=== PATIENT | female | born 1965 | race Caucasian/White ===

== ENCOUNTER 2023-02-05 07:14 | Outpatient (OUT) | payer BC, SELFPAY ==
[2023-02-05 07:48] LABS: Basophils Percent Auto 0.6 % (0.2-2.0); Eosinophils Absolute Auto 0.1 10^3/uL (0.0-0.7); Eosinophils Percent Auto 1.8 % (0.9-7.0); Hematocrit 40.1 % (36.0-48.0); Hemoglobin 13.5 g/dL (12.0-16.0); Immature Granulocytes Abs Auto 0.01 10^3/uL (0.00-0.03); Immature Granulocytes Pct Auto 0.2 % (0.0-0.5); Lymphocytes Absolute Auto 2.4 10^3/uL (1.2-3.8); Mean Corpuscular HGB Conc 33.7 g/dL (29.9-35.2); Mean Corpuscular Hemoglobin 29.9 pg (26.7-34.0); Mean Corpuscular Volume 88.7 fL (81.0-99.0); Mean Platelet Volume 9.4 fL (9.5-13.5); Monocytes Absolute Auto 0.4 10^3/uL (0.3-0.8); Neutrophils Absolute Auto 3.3 10^3/uL (1.4-6.5); Neutrophils Percent Auto 53.4 % (43.0-75.0); Platelet Count 253 10^3/uL (150-450); Red Blood Count 4.52 10^6/uL (4.20-5.40); White Blood Count 6.2 10^3/uL (4.0-11.0)
[2023-02-05 08:27] LABS: Estimated Average Glucose 100 mg/dL; Glycohemoglobin A1C 5.1 % (4.5-6.2)
[2023-02-05 10:45] LABS: Alanine Aminotransferase 39 U/L (14-59); Albumin Globulin Ratio 1.1; Albumin Level 4.2 g/dL (3.4-5.0); Alkaline Phosphatase 67 U/L (46-116); Amylase 51 U/L (25-115); Anion Gap 12.6; Aspartate Amino Transferase 19 U/L (15-37); BUN Creatinine Ratio 20.3; Bilirubin Total 0.6 mg/dL (0.2-1.0); Calcium 8.6 mg/dL (8.5-10.1); Carbon Dioxide 27.3 mmol/L (21.0-32.0); Chloride 103 mmol/L (98-107); Chol HDL Ratio 5.9; Cholesterol 255 mg/dL (<=200); Estimated GFR (African America >60 (>=60); Estimated GFR (Non-African Ame >60 (>=60); Free T3 2.68 pg/mL (2.18-3.98); Globulin 3.9 g/dL; Glucose 109 mg/dL (74-106); HDL Cholesterol 43 mg/dL (40-60); Potassium 3.9 mmol/L (3.5-5.1); Sodium 139 mmol/L (136-145); Thyroid Stimulating Hormone 0.013 uIU/mL (0.358-3.740); Total Protein 8.1 g/dL (6.4-8.2); Triglycerides 440 mg/dL (<=150)
[2023-02-05 10:58] LABS: LDL Cholesterol Direct 137 mg/dL
[2023-02-06 12:20] LABS: Insulin 19.1 uIU/mL (2.6-24.9)
== END 2023-02-05 07:15 | disposition home or self-care (01) ==
LOC: LAB 07:22
PROVIDERS: PCP Family Medicine; Visit Provider Family Medicine
DX: Z00.00 Encounter for general adult medical examination without abnormal findings (principal)
CPT/HCPCS: 36415; 80053; 80061; 82150; 83036; 83525; 83690; 83721; 84436; 84443; 84481; 85025

== ENCOUNTER 2023-02-24 08:05 | Outpatient (OUT) | payer BC, SELFPAY ==
--- NOTE | 2023-02-24 08:28 | CT_ITS ---
The [address] [address] Patient Name: PRAVEENA DACOSTA MRN: [id number] date: 1965 Sex: F Assigned Patient Location: CT Current Patient Location: CT Accession/Order Number: [id number] Exam Date: 02/24/2023 08:12 Report Date: 02/24/2023 09:30 At the request of: RAKESH VERNON Procedure: CT head/brain wo/w con CT head with and without contrast, 02/24/2023. HISTORY: Right-sided head pain. COMPARISON: None. TECHNIQUE: Pre and postcontrast axial CT images obtained through the head. Reconstructions obtained in the sagittal and coronal planes. Dose reduction techniques were achieved by using automated exposure control and/or adjustment of mA and/or kV according to patient size and/or use of iterative reconstruction technique. FINDINGS: Paranasal sinuses clear. Mastoid air cells clear. Nasopharynx normal. Orbital contents normal. Extracranial soft tissue structures are unremarkable. Ventricles are normal in size. No hydrocephalus. No mass effect. No shift of midline. No extra-axial fluid collections. No acute intracranial hemorrhage. No masses. No pathologic enhancement. CT/CT head/brain wo/w con IMPRESSION: Normal CT of the head with and without contrast. Electronically authenticated by: YUDY WRAY Date: 02/24/2023 09:30
== END 2023-02-24 08:06 | disposition home or self-care (01) ==
LOC: CT 08:05
PROVIDERS: PCP Family Medicine; Visit Provider Family Medicine
DX: R20.2 Paresthesia of skin (principal); H92.02 Otalgia, left ear; H57.9 Unspecified disorder of eye and adnexa
CPT/HCPCS: 70470; Q9967

== ENCOUNTER 2023-05-24 20:16 | Outpatient (REF) | payer BC, SELFPAY ==
[2023-05-30 14:09] LABS: Age Gdln ACOG Testing Note (.); HPV Aptima Negative (Negative); IGP, Aptima HPV, rfx 16/18,45 Note (.)
== END 2023-05-24 20:17 | disposition home or self-care (01) ==
LOC: LAB 20:16
PROVIDERS: PCP Family Medicine; Visit Provider Physician Assistant
DX: Z01.419 Encounter for gynecological examination (general) (routine) without abnormal findings (principal)
CPT/HCPCS: 87624; G0145

== ENCOUNTER 2023-06-27 13:39 | Outpatient (OUT) | payer BC, SELFPAY ==
--- NOTE | 2023-06-27 | MM_ITS ---
Patient Name: PRAVENEA DACOSTA MR#: [id number] : 1965 Exam Date: 06/27/2023 Ordering Doctor: ANNA Jennings . RADIOLOGY REPORT PROCEDURE: MM TOMOSYNTHESIS SCREENING BI COMPARISON: MAMMO NIKKO DIAG DIG, 03/21/2012. MG MAMM SCREEN NIKKO W CAD, 09/10/2017. INDICATIONS: Screening for malignant neoplasm Calculator Name NCI Breast Cancer Risk Assessment Tool 5 Year Breast Cancer Risk 1.20% Lifetime Breast Cancer Risk 8.10% Personal Breast Cancer No Personal Ovarian Cancer No Treatments None Family Cancers Aunt-maternal with breast cancer at age ~48. LOCATION: [facility] BREAST COMPOSITION: Heterogeneously dense,which may obscure small masses. FINDINGS: DIAGNOSTIC CATEGORY 2--BENIGN FINDING. NO CHANGE FROM COMPARISON. Scattered benign-appearing calcifications are present. Scattered benign-appearing nodules are present. RIGHT BREAST: No significant suspicious finding. LEFT BREAST: No significant suspicious finding. RECOMMENDATIONS: ROUTINE MAMMOGRAM AND CLINICAL EVALUATION IN 12 MONTHS. PLEASE NOTE: A NORMAL MAMMOGRAM DOES NOT EXCLUDE THE POSSIBILITY OF BREAST CANCER. A CLINICALLY SUSPICIOUS PALPABLE LUMP SHOULD BE BIOPSIED. Dictated by: Kolton Montenegro MD on 06/29/2023 at 08:11 Approved by: Kolton Montenegro MD on 06/29/2023 at 08:13
--- NOTE | 2023-06-27 | XR_ITS ---
The [address] [address] Patient Name: PRAVEENA DACOSTA MRN: [id number] date: 1965 Sex: F Assigned Patient Location: [facility] Current Patient Location: [facility] Accession/Order Number: [id number] Exam Date: 06/27/2023 14:15 Report Date: 06/27/2023 15:49 At the request of: TONYA WISEMAN Procedure: XR DEXA axial skeleton EXAMINATION: XR DEXA axial skeleton HISTORY: post menopausal state COMPARISON: No relevant comparison available. TECHNIQUE: Dual-energy X-ray absorptiometry (DXA) was performed. FINDINGS: SPINE ANALYSIS: Average bone mineral density is 1.0 x 3 g/cm2. T-score (standard deviation relative to young adult mean): -1.1 . HIP ANALYSIS: Lowest bone mineral density is within the left femoral neck, 0.89 g/cm2. T-score (standard deviation relative to young adult mean): -1.5 . XR/XR DEXA axial skeleton IMPRESSION: [employer] Classification: Osteopenia - Moderate Fracture Risk Electronically authenticated by: VIKA COLLAZO Date: 06/27/2023 15:49
== END 2023-06-27 13:40 | disposition home or self-care (01) ==
LOC: MAMMO 13:39
PROVIDERS: PCP Family Medicine; Visit Provider Physician Assistant
DX: Z12.31 Encounter for screening mammogram for malignant neoplasm of breast (principal); Z80.3 Family history of malignant neoplasm of breast; M85.80 Other specified disorders of bone density and structure, unspecified site; Z78.0 Asymptomatic menopausal state
CPT/HCPCS: 77063; 77067; 77080

== ENCOUNTER 2024-02-08 08:52 | Outpatient (OUT) | payer BC, SELFPAY ==
--- OUTSIDE RECORDS SUMMARY | 2024-02-08 09:05 | XMS_ITS | CCD ---
Author Organization [facility] Care Team Providers Care Supervisor Paper Machine Name Role Phone DR RAKESH LUNDBERG Primary Care Unavailable DAVIE, DR NOBLE Admitting Unavailable DAVIE, DR NOLBE Attending Unavailable DAVIE, DR NOBLE Consulting Unavailable SAULO, DR CAMERON Primary Care Unavailable WEST, DR VANESSA Sanchez Admitting Unavailable WEST, DR VANESSA Sanchez Attending Unavailable WEST, DR VANESSA Sanchez Consulting Unavailable SAULO, DR CAMERON Primary Care Unavailable WEST, DR VANESSA Sanchez Admitting Unavailable WEST, DR VANESSA Sanchez Attending Unavailable KRUPA, DR VANESSA Sanchez Consulting Unavailable SAULO, DR CAMERON Primary Care Unavailable SAULO, DR CAMERON Admitting Unavailable SAULO, DR CAMERON Attending Unavailable SAULO, DR CAMERON Consulting Unavailable SAULO, DR CAMERON Primary Care Unavailable SAULO, DR CAMERON Admitting Unavailable SAULO, DR CAMERON Attending Unavailable SAULO, DR CAMERON Consulting Unavailable Mirta Chacko Unavailable Rakesh Lundberg MD Primary Care Provider RAKESH LUNDBERG Primary Care Unavailable RAJ DENNISON Attending Unavailable Allergies Allergy Classification Reported Allergen(s) Allergy Type Date of Onset Reaction(s) Facility (2 sources) Codeine; Translations: [CODEINE] Drug Allergy 4 [facility] Repository (1 source) diphenhydrAMINE Drug Allergy 6 [facility] (1 source) Erythromycin Drug Allergy 4 [facility] (1 source) Penicillins Drug allergy (disorder) 4 [facility] (1 source) Penicillin Drug Allergy rash [employer] Other (2 sources) Amoxicillin; Translations: [AMOXICILLIN] Drug Allergy 3 [facility] (1 source) Codeine Drug Allergy 4 Anxiety [facility] Work Phone: Medications Current Medications Medication Drug Class(es) Dates Sig (Normalized) Sig (Original) cyclobenzaprine hydrochloride 10 mg oral tablet (1 source) Muscle Relaxant Start: 12-14-2022 take 1 tablet by mouth every eight hours as needed for pain Cyclobenzaprine HCl 10 MG 1 tablet Orally every 8 hours prn back pain for 5 days Dec, Active FLUoxetine 10 mg oral capsule (1 source) Serotonin Reuptake Inhibitor FLUoxetine HCl 10 MG Oral for 90 Days Active levothyroxine sodium 0.125 mg oral tablet (1 source) l-Thyroxine Levothyroxine So dium 125 MCG Oral for 90 Days Active lisinopril 10 mg oral tablet (1 source) Angiotensin Converting Enzyme Inhibitor Lisinopril 10 MG Oral for 90 Days Active modafinil 200 mg oral tablet (1 source) Sympathomimetic-l nathaly Agent take 1 tablet by mouth once daily in the morning Modafinil 200 MG TAKE 1 TABLET BY MOUTH IN THE MORNING daily Oral for 30 Days Active Completed/Discontinued Medications Medication Drug Class(es) Dates Sig (Normalized) Sig (Original) 1 ml fentaNYL 0.05 mg/ml injection (1 source) Opioid Agonist Start: 08-07-2023 End: 08-07-2023 fentaNYL PF (Sublimaze) injection 50 mcg Ketorolac Tromethamin (1 source) Start: 12-14-2022 Ketorolac Tromethamin Dec, 60 mg Problems Active Problems Problem Classification Problem Date Documented Da te Episodic/Chronic Disorders of lipid metabolism (1 source) Hyperlipidemia, unspecified; Translations: [HYPERLIPIDEMIA UNSPECIFIED] Onset: 08-09-2022 Chronic E Codes: Fall (3 sources) Fall; Translations: [Unspecified fall, initial encounter] Onset: 08-07-2023 08-07-2023 Episodic Malaise and fatigue (1 source) Other fatigue; Translations: [OTHER FATIGUE] Onset: 08-09-2022 Episodic Nutritional deficiencies (1 source) Vitamin D deficiency, unspecified; Translations: [VITAMIN D DEFICIENCY UNSPECIFIED] Onset: 08-09-2022 Chronic Other injuries and conditions due to external causes (1 source) Closed injury of head; Translations: [Unspecified injury of head, initial encounter] 08-07-2023 Episodic Other injuries and conditions due to external causes (2 sources) Unspecified injury of head, initial encounter; Translations: [Unspecified injury of head, initial encounter] Onset: 08-07-2023 Episodic Sprains and strains (1 source) Strain of muscle, fascia and tendon of lower back, initial encounter Episodic Thyroid disorders (1 source) Hypothyroidism, unspecified; Translations: [HYPOTHYROIDISM UNSPECIFIED] Onset: 08-09-2022 Chronic Unclassified (3 sources) CONTACT W/AND (SUSP) EXPOS COVID-19; Translations: [CONTACT W/AND (SUSP) EXPOS COVID-19] Onset: 01-06-2022 Unclassified (1 source) COUGH, UNSPECIFIED; Translations: [COUGH, UNSPECIFIED] Onset: 01-06-2022 Past or Other Problems Problem Classification Problem Date Documented Date Episodic/Chronic Immunizations and screening for infectious disease (1 source) Encounter for screening for human papillomavirus (HPV); Translations: [ENC SCREENING HUMAN PAPILLOMAVIRUS] Onset: 11-16-2021 Episodic Other circulatory disease (1 source) Other specified symptoms and signs involving the circulatory and respiratory systems; Translations: [OTH SPEC SX SIGNS INVLV CIRC RS] Onset: 01-06-2022 Episodic Other screening for suspected conditions (not mental disorders or infectious disease) (4 sources) Encounter for screening for malignant neoplasm of cervix; Translations: [ENC SCREENING MALIG NEOPLASM CERV] Onset: 11-14-2021 Episodic Unclassified (1 source) CONTACT W/AND (SUSP) EXPOS COVID-19; Translations: [CONTACT W/AND (SUSP) EXPOS COVID-19] Onset: 01-04-2022 Results Test Name Value Interpretation Reference Range Facility CBC W Auto Differential pane l (Bld)on 08-07-2023 Basophils (Bld) [#/Vol] 0.03 x10*3/uL Normal 0.00-0.10 [facility] Comment on above: Performed By: #### 5 7021-8 #### MIK FREITAS ([id number]) [facility] ([facility]) [address] [place] [address] Basophils/100 WBC (Bld) 0.4 % Normal 0.0-2.0 [facility] Comment on above: Performed By: #### 5 7021-8 #### MIK FREITAS ([id number]) [facility] ([facility]) [address] [place] [address] Eosinophils (Bld) [#/Vol] 0.06 x10*3/uL Normal 0.00-0.70 [facility] Comment on above: Performed By: #### 7021-8 #### MIK FREITAS ([id number]) [facility] ([facility]) [address] [place] [address] Eosinophils/100 WBC (Bld) 0.9 % Normal 0.0-6.0 [facility] Comment on above: Performed By: #### 7021-8 #### MIK FERITAS ([id number]) [facility] ([facility]) [address] [place] [address] Erythrocyte distribution width (RBC) [Ratio] 13.2 % Normal 11.5-14.5 [facility] Comment on above: Performed By: #### 7021-8 #### MIK FREITAS ([id number]) [facility] ([facility]) [address] [place] [address] Hematocrit (Bld) [Volume fraction] 41.6 % Normal 36.0-46.0 [facility] Comment on above: Performed By: #### 7021-8 #### MIK FREITAS ([id number]) [facility] ([facility]) [address] [place] [address] Hemoglobin (Bld) [Mass/Vol] 13.8 g/dL Normal 12.0-16.0 [facility] Comment on above: Performed By: #### 7021-8 #### MIK FREITAS ([id number]) [facility] ([facility]) [address] [place] [address] Immature granulocytes (Bld) [#/Vol] 0.07 x10*3/uL Normal 0.00-0.70 [facility] Comment on above: Performed By: #### 7021-8 #### MIK FREITAS ([id number]) [facility] ([facility]) [address] [place] [address] Immature granulocytes/100 WBC (Bld) 1.0 % High 0.0-0.9 [facility] Comment on above: Result Comment: Azul ture Granulocyte Count (IG) includes promyelocytes, myelocytes and metamyelocytes but does not include bands. Percent differential counts (%) should be interpreted in the context of the absolute cell counts (cells/UL). Performed By: #### 5 7021-8 #### MIK FREITAS ([id number]) [facility] ([facility]) [id number] [place] [address] Lymphocytes (Bld) [#/Vol] 2.17 x10*3/uL Normal 1.20-4.80 [facility] Comment on above: Performed By: #### 5 7021-8 #### MIK FREITAS ([id number]) [facility] ([facility]) [address] [place] [address] Lymphocytes/100 WBC (Bld) 32.1 % Normal 13.0-44.0 [facility] Comment on above: Performed By: #### 5 7021-8 #### MIK FREITAS ([id number]) [facility] ([facility]) [address] [place] [address] MCH (RBC) [Entitic mass] 29.6 pg Normal 26.0-34.0 [facility] Comment on above: Performed By: #### 5 7021-8 #### MIK FREITAS ([id number]) [facility] ([facility]) [address] [place] [address] MCHC (RBC) [Mass/Vol] 33.2 g/dL Normal 32.0-36.0 [facility] Comment on above: Performed By: #### 5 7021-8 #### MIK FREITAS ([id number]) [facility] ([facility]) [address] [place] [address] MCV (RBC) [Entitic vol] 89 fL Normal 80-100 [facility] Comment on above: Performed By: #### 5 7021-8 #### MIK FREITAS ([id number]) [facility] ([facility]) [address] [place] [address] Monocytes (Bld) [#/Vol] 0.32 x10*3/uL Normal 0.10-1.00 [facility] Comment on above: Performed By: #### 5 7021-8 #### MIK FREITAS ([id number]) [facility] ([facility]) [address] [place] [address] Monocytes/100 WBC (Bld) 4.7 % Normal 2.0-10.0 [facility] Comment on above: Performed By: #### 5 7021-8 #### MIK FREITAS ([id number]) [facility] ([facility]) [id number] [place] [address] Neutrophils (Bld) [#/Vol] 4.12 x10*3/uL Normal 1.20-7.70 [facility] Comment on above: Result Comment: Perc ent differential counts (%) should be interpreted in the context of the absolute cell counts (cells/uL). Performed By: #### 5 7021-8 #### MIK FREITAS ([id number]) [facility] ([facility]) [id number] [place] [address] Neutrophils/100 WBC (Bld) 60.9 % Normal 40.0-80.0 [facility] Comment on above: Performed By: #### 5 7021-8 #### MIK FREITAS ([id number]) [facility] ([facility]) [address] [place] [address] Nucleated RBC/100 WBC (Bld) [Ratio] 0.0 /100 WBCs Normal 0.0-0.0 [facility] Comment on above: Performed By: #### 5 7021-8 #### MIK FREITAS ([id number]) [facility] ([facility]) [address] [place] [address] Platelets (Bld) [#/Vol] 234 x10*3/uL Normal 150-450 [facility] Comment on above: Performed By: #### 5 7021-8 #### MIK FREITAS ([id number]) [facility] ([facility]) [address] [place] [address] RBC (Bld) [#/Vol] 4.66 x10*6/uL Normal 4.00-5.20 [facility] Comment on above: Performed By: #### 5 7021-8 #### MIK FREITAS ([id number]) [facility] ([facility]) [address] [place] [address] WBC (Bld) [#/Vol] 6.8 x10*3/uL Normal 4.4-11.3 [facility] Comment on above: Performed By: #### 5 7021-8 #### MIK FREITAS ([id number]) [facility] ([facility]) [address] [place] [address] Basophils (Bld) [#/Vol] 0.03 10*3/uL [facility] Basophils/100 WBC (Bld) 0.4 % 0.0 - 2.0 % [facility] Eosinophils (Bld) [#/Vol] 0.06 10*3/uL [facility] Eosinophils/100 WBC (Bld) 0.9 % 0.0 - 6.0 % [facility] Erythrocyte distribution width (RBC) [Ratio] 13.2 % 11.5 - 14.5 % [facility] Hematocrit (Bld) [Volume fraction] 41.6 % 36.0 - 46.0 % [facility] Hemoglobin (Bld) [Mass/Vol] 13.8 g/dL 12.0 - 16.0 g/dL [facility] Immature granulocytes (Bld) [#/Vol] 0.07 10*3/uL [facility] Immature granulocytes/100 WBC (Bld) 1.0 % High 0.0 - 0.9 % [facility] Comment on above: Immature Granulocyte Count (IG) includes promyelocytes, myelocytes and metamyelocytes but does not include bands. Percent differential counts (%) should be interpreted in the context of the absolute cell counts (cells/UL). Interpretation and review of laboratory results Abnormal [facility] Lymphocytes (Bld) [#/Vol] 2.17 10*3/uL [facility] Lymphocytes/100 WBC (Bld) 32.1 % 13.0 - 44.0 % [facility] MCH (RBC) [Entitic mass] 29.6 pg 26.0 - 34.0 pg [facility] MCHC (RBC) [Mass/Vol] 33.2 g/dL 32.0 - 36.0 g/dL [facility] MCV (RBC) [Entitic vol] 89 fL 80 - 100 fL [facility] Monocytes (Bld) [#/Vol] 0.32 10*3/uL [facility] Monocytes/100 WBC (Bld) 4.7 % 2.0 - 10.0 % [facility] Neutrophils (Bld) [#/Vol] 4.12 10*3/uL [facility] Comment on above: Percent differential counts (%) should be interpreted in the context of the absolute cell counts (cells/uL). Neutrophils/100 WBC (Bld) 60.9 % 40.0 - 80.0 % [facility] Nucleated RBC/100 WBC (Bld) [Ratio] 0.0 % [facility] Platelets (Bld) [#/Vol] 234 10*3/uL [facility] RBC (Bld) [#/Vol] 4.66 10*6/uL [facility] WBC (Bld) [#/Vol] 6.8 10*3/uL [facility] CT CERVICAL SPINE WO IV CONT Phoebe 08-07-2023 CT CERVICAL SPINE WO IV CONTRAST Interpreted By: Willy Anderson, STUDY: CT CERVICAL SPINE WO IV CONTRAST; 08/07/2023 9:01 am INDICATION: Signs/Symptoms:Mechan ical fall, no thinners, positive LOC. COMPARISON: None. ACCESSION NUMBER(S): [id number] ORDERING CLINICIAN: DIMPLE MADRID TECHNIQUE: Axial CT images of the cervical spine are obtained. Axial, coronal and sagittal reconstructions are provided for review. FINDINGS: Trauma: There is no evidence for an acute fracture of the cervical spine. No prevertebral soft tissue swelling. Alignment: Within normal limits. Craniocervical Junction: The occipital condyles, odontoid process, and craniocervical junction are intact. Vertebral Body Heights: The cervical vertebral body heights are intact. Intervertebral Disc Spaces: The disc spaces are grossly preserved. Degenerative Change: Bulky right C4-C5 facet arthropathy. No high-grade spinal canal stenosis. No high-grade neural foraminal narrowing. Prevertebral/Paraspin al Soft Tissues: The prevertebral and paraspinal soft tissues are otherwise unremarkable. Lung Apices: Unremarkable. IMPRESSION: No evidence for an acute fracture or subluxation of the cervical spine. MACRO: None Signed by: Willy Anderson 08/07/2023 9:41 AM Dictation workstation: [id number] [facility] CT Cervical spine WO contras ton 08-07-2023 No evidence for an acute fracture or subluxation of the cervical spine. MACRO: None Signed by: Willy Anderson 08/07/2023 9:41 AM Dictation workstation: [id number] [facility] Interpreted By: Willy Anderson, STUDY: CT CERVICAL SPINE WO IV CONTRAST; 08/07/2023 9:01 am INDICATION: Signs/Symptoms:Mechan ical fall, no thinners, positive LOC. COMPARISON: None. ACCESSION NUMBER(S): [id number] ORDERING CLINICIAN: DIMPLE MADRID TECHNIQUE: Axial CT images of the cervical spine are obtained. Axial, coronal and sagittal reconstructions are provided for review. FINDINGS: Trauma: There is no evidence for an acute fracture of the cervical spine. No prevertebral soft tissue swelling. Alignment: Within normal limits. Craniocervical Junction: The occipital condyles, odontoid process, and craniocervical junction are intact. Vertebral Body Heights: The cervical vertebral body heights are intact. Intervertebral Disc Spaces: The disc spaces are grossly preserved. Degenerative Change: Bulky right C4-C5 facet arthropathy. No high-grade spinal canal stenosis. No high-grade neural foraminal narrowing. Prevertebral/Paraspin al Soft Tissues: The prevertebral and paraspinal soft tissues are otherwise unremarkable. Lung Apices: Unremarkable. [facility] Willy Anderson MD - 08/07/2023 Interpreted By: Willy Anderson, STUDY: CT CERVICAL SPINE WO IV CONTRAST; 08/07/2023 9:01 am INDICATION: Signs/Symptoms:Mechan ical fall, no thinners, positive LOC. COMPARISON: None. ACCESSION NUMBER(S): [id number] ORDERING CLINICIAN: DIMPLE MADRID TECHNIQUE: Axial CT images of the cervical spine are obtained. Axial, coronal and sagittal reconstructions are provided for review. FINDINGS: Trauma: There is no evidence for an acute fracture of the cervical spine. No prevertebral soft tissue swelling. Alignment: Within normal limits. Craniocervical Junction: The occipital condyles, odontoid process, and craniocervical junction are intact. Vertebral Body Heights: The cervical vertebral body heights are intact. Intervertebral Disc Spaces: The disc spaces are grossly preserved. Degenerative Change: Bulky right C4-C5 facet arthropathy. No high-grade spinal canal stenosis. No high-grade neural foraminal narrowing. Prevertebral/Paraspin al Soft Tissues: The prevertebral and paraspinal soft tissues are otherwise unremarkable. Lung Apices: Unremarkable. IMPRESSION: No evidence for an acute fracture or subluxation of the cervical spine. MACRO: None Signed by: Willy Anderson 08/07/2023 9:41 AM Dictation workstation: [id number] [facility] Work Phone: [facility] Work Phone: CT HEAD WO IV CONTRASTon CT HEAD WO IV CONTRAST Interpreted By: Willy Anderson, STUDY: CT HEAD WO IV CONTRAST; 08/07/2023 9:01 am INDICATION: Signs/Symptoms:Mechan ical fall, no thinners, positive LOC. COMPARISON: None. ACCESSION NUMBER(S): [id number] ORDERING CLINICIAN: DIMPLE MADRID TECHNIQUE: Noncontrast axial CT scan of head was performed. FINDINGS: Parenchyma: There is no intracranial hemorrhage. The randolph-white differentiation is intact. There is no mass effect or midline shift. CSF Spaces: The ventricles, sulci and basal cisterns are within normal limits for age. Extra-Axial Fluid: There is no extraaxial fluid collection. Calvarium: The calvarium is unremarkable. Paranasal sinuses: Visualized paranasal sinuses are clear. Mastoids: Clear. Orbits: Normal. Soft tissues: Unremarkable. IMPRESSION: No acute intracranial hemorrhage, mass effect, or calvarial fracture. MACRO: None Signed by: Willy Anderson 08/07/2023 9:38 AM Dictation workstation: [id number] [facility] CT Head WO contraston 2023 No acute intracrania l hemorrhage, mass effect, or calvarial fracture. MACRO: None Signed by: Willy Anderson 08/07/2023 9:38 AM Dictation workstation: [id number] [facility] Interpreted By: Willy Anderson, STUDY: CT HEAD WO IV CONTRAST; 08/07/2023 9:01 am INDICATION: Signs/Symptoms:Mechan ical fall, no thinners, positive LOC. COMPARISON: None. ACCESSION NUMBER(S): [id number] ORDERING CLINICIAN: DIMPLE MADRID TECHNIQUE: Noncontrast axial CT scan of head was performed. FINDINGS: Parenchyma: There is no intracranial hemorrhage. The randolph-white differentiation is intact. There is no mass effect or midline shift. CSF Spaces: The ventricles, sulci and basal cisterns are within normal limits for age. Extra-Axial Fluid: There is no extraaxial fluid collection. Calvarium: The calvarium is unremarkable. Paranasal sinuses: Visualized paranasal sinuses are clear. Mastoids: Clear. Orbits: Normal. Soft tissues: Unremarkable. MMODAL Willy Anderson MD - 08/07/2023 Interpreted By: Willy Anderson, STUDY: CT HEAD WO IV CONTRAST; 08/07/2023 9:01 am INDICATION: Signs/Symptoms:Mechan ical fall, no thinners, positive LOC. COMPARISON: None. ACCESSION NUMBER(S): [id number] ORDERING CLINICIAN: DIMPLE MADRID TECHNIQUE: Noncontrast axial CT scan of head was performed. FINDINGS: Parenchyma: There is no intracranial hemorrhage. The randolph-white differentiation is intact. There is no mass effect or midline shift. CSF Spaces: The ventricles, sulci and basal cisterns are within normal limits for age. Extra-Axial Fluid: There is no extraaxial fluid collection. Calvarium: The calvarium is unremarkable. Paranasal sinuses: Visualized paranasal sinuses are clear. Mastoids: Clear. Orbits: Normal. Soft tissues: Unremarkable. IMPRESSION: No acute intracranial hemorrhage, mass effect, or calvarial fracture. MACRO: None Signed by: Willy Anderson 08/07/2023 9:38 AM Dictation workstation: [id number] [facility] Work Phone: CT Head WO contrastOrdered B y: Willy Anderson on 08-07-2023 [facility] Work Phone: CT THORACIC SPINE WO IV CONT RASTon 08-07-2023 CT THORACIC SPINE WO IV CONTRAST Interpreted By: Willy Anderson, STUDY: CT THORACIC SPINE WO IV CONTRAST; 08/07/2023 9:01 am INDICATION: Signs/Symptoms:Mechan ical fall, no thinners, positive LOC, thoracic spinal tenderness. COMPARISON: None. ACCESSION NUMBER(S): [id number] ORDERING CLINICIAN: DIMPLE MADRID TECHNIQUE: Axial CT images of the thoracic spine are obtained. Axial, coronal and sagittal reconstructions are submitted for review. FINDINGS: Trauma: No definite acute fracture. Alignment: Trace scoliosis. Otherwise within normal limits. Vertebral Body Heights: There is minimal, likely remote, superior endplate compression deformity of T1 and mild involvement of T2 with less than 20% vertebral body height loss and slight anterior wedging. There is also mild chronic anterior wedging of T7 with estimated 25% vertebral body height loss anteriorly and small Schmorl's node component involving the superior endplate. Intervertebral Discs: Mild multilevel degenerative disc height loss with anterior predominant endplate spurring. Degenerative change: There is no significant spinal canal stenosis. No high-grade neural foraminal narrowing. Paraspinous Soft Tissues: Within normal limits. Mild dependent atelectasis within the visualized lung bases. IMPRESSION: No acute osseous abnormality of the thoracic spine. Mild chronic appearing anterior wedging of a few scattered thoracic vertebral bodies as above. MACRO: None Signed by: Willy Anderson 08/07/2023 9:48 AM Dictation workstation: [id number] [facility] CT Thoracic spine WO contras ton 08-07-2023 No acute osseous abnormality of the thoracic spine. Mild chronic appearing anterior wedging of a few scattered thoracic vertebral bodies as above. MACRO: None Signed by: Willy Anderson 08/07/2023 9:48 AM Dictation workstation: [id number] [facility] Interpreted By: Willy Anderson, STUDY: CT THORACIC SPINE WO IV CONTRAST; 08/07/2023 9:01 am INDICATION: Signs/Symptoms:Mechan ical fall, no thinners, positive LOC, thoracic spinal tenderness. COMPARISON: None. ACCESSION NUMBER(S): [id number] ORDERING CLINICIAN: DIMPLE MADRID TECHNIQUE: Axial CT images of the thoracic spine are obtained. Axial, coronal and sagittal reconstructions are submitted for review. FINDINGS: Trauma: No definite acute fracture. Alignment: Trace scoliosis. Otherwise within normal limits. Vertebral Body Heights: There is minimal, likely remote, superior endplate compression deformity of T1 and mild involvement of T2 with less than 20% vertebral body height loss and slight anterior wedging. There is also mild chronic anterior wedging of T7 with estimated 25% vertebral body height loss anteriorly and small Schmorl's node component involving the superior endplate. Intervertebral Discs: Mild multilevel degenerative disc height loss with anterior predominant endplate spurring. Degenerative change: There is no significant spinal canal stenosis. No high-grade neural foraminal narrowing. Paraspinous Soft Tissues: Within normal limits. Mild dependent atelectasis within the visualized lung bases. MMODAL Willy Anderson MD - 08/07/2023 Interpreted By: Willy Anderson, STUDY: CT THORACIC SPINE WO IV CONTRAST; 08/07/2023 9:01 am INDICATION: Signs/Symptoms:Mechan ical fall, no thinners, positive LOC, thoracic spinal tenderness. COMPARISON: None. ACCESSION NUMBER(S): [id number] ORDERING CLINICIAN: DIMPLE MADRID TECHNIQUE: Axial CT images of the thoracic spine are obtained. Axial, coronal and sagittal reconstructions are submitted for review. FINDINGS: Trauma: No definite acute fracture. Alignment: Trace scoliosis. Otherwise within normal limits. Vertebral Body Heights: There is minimal, likely remote, superior endplate compression deformity of T1 and mild involvement of T2 with less than 20% vertebral body height loss and slight anterior wedging. There is also mild chronic anterior wedging of T7 with estimated 25% vertebral body height loss anteriorly and small Schmorl's node component involving the superior endplate. Intervertebral Discs: Mild multilevel degenerative disc height loss with anterior predominant endplate spurring. Degenerative change: There is no significant spinal canal stenosis. No high-grade neural foraminal narrowing. Paraspinous Soft Tissues: Within normal limits. Mild dependent atelectasis within the visualized lung bases. IMPRESSION: No acute osseous abnormality of the thoracic spine. Mild chronic appearing anterior wedging of a few scattered thoracic vertebral bodies as above. MACRO: None Signed by: Willy Anderson 08/07/2023 9:48 AM Dictation workstation: [id number] [facility] Work Phone: [facility] Work Phone: Coagulation tissue factor in ducedon 08-07-2023 PT Coag (PPP) [Time] 11.1 s Normal 9.8-12.8 [facility] Comment on above: Performed By: #### 5 902-2 #### MIK FREITAS ([id number]) [facility] ([facility]) [address] [place] [address] Comprehensive metabolic 2000 panelon 08-07-2023 Albumin BCP dye [Mass/Vol] 4.7 g/dL Normal 3.4-5.0 [facility] Comment on above: Performed By: #### 2 4323-8 #### MIK FREITAS ([id number]) [facility] ([facility]) [address] [place] [address] ALP [Catalytic activity/Vol] 61 U/L Normal 33-110 [facility] Comment on above: Performed By: #### 2 4323-8 #### MIK FREITAS ([id number]) [facility] ([facility]) [address] [place] [address] ALT With P-5'-P [Catalytic activity/Vol] 27 U/L Normal 7-45 [facility] Comment on above: Result Comment: [place] ents treated with Sulfasalazine may generate falsely decreased results for ALT. Performed By: #### 2 4323-8 #### MIK FREITAS ([id number]) [facility] ([facility]) [address] [place] [address] Anion gap [Moles/Vol] 11 mmol/L Normal 10-20 [facility] Comment on above: Performed By: #### 2 4323-8 #### MIK FREITAS ([id number]) [facility] ([facility]) [address] [place] [address] AST With P-5'-P [Catalytic activity/Vol] 23 U/L Normal 9-39 [facility] Comment on above: Performed By: #### 2 4323-8 #### MIK FREITAS ([id number]) [facility] ([facility]) [address] [place] [address] Bilirubin [Mass/Vol] 0.5 mg/dL Normal 0.0-1.2 [facility] Comment on above: Performed By: #### 2 4323-8 #### MIK FREITAS ([id number]) [facility] ([facility]) [address] [place] [address] Calcium [Mass/Vol] 9.4 mg/dL Normal 8.6-10.3 [facility] Comment on above: Performed By: #### 2 4323-8 #### MIK FREITAS ([id number]) [facility] ([facility]) [address] [place] [address] Chloride [Moles/Vol] 101 mmol/L Normal 98-107 [facility] Comment on above: Performed By: #### 2 4323-8 #### MIK FREITAS ([id number]) [facility] ([facility]) [address] [place] [address] CO2 [Moles/Vol] 28 mmol/L Normal 21-32 [facility] Comment on above: Performed By: #### 2 4323-8 #### MIK FREITAS ([id number]) [facility] ([facility]) [address] [place] [address] Creatinine [Mass/Vol] 0.75 mg/dL Normal 0.50-1.05 [facility] Comment on above: Performed By: #### 2 4323-8 #### MIK FREITAS ([id number]) [facility] ([facility]) [address] [place] [address] GFR/1.73 sq M.predicted MDRD (S/P/Bld) [Vol rate/Area] mL/min/{1.73_m2} Normal >60 [facility] Comment on above: Result Comment: Calc ulations of estimated GFR are performed using the 2020 CKD-EPI Study Refit equation without the race variable for the IDMS-Traceable creatinine methods. https://jasn.asnjournals.org/content/early//ASN.7210780 988 Performed By: #### 2 4323-8 #### MIK FREITAS ([id number]) [facility] ([facility]) [address] [place] [address] Glucose [Mass/Vol] 108 mg/dL High 74-99 [facility] Comment on above: Performed By: #### 2 4323-8 #### MIK FREITAS ([id number]) [facility] ([facility]) [address] [place] [address] Potassium [Moles/Vol] 3.8 mmol/L Normal 3.5-5.3 [facility] Comment on above: Performed By: #### 2 4323-8 #### MIK FREITAS ([id number]) [facility] ([facility]) [address] [place] [address] Protein [Mass/Vol] 7.8 g/dL Normal 6.4-8.2 [facility] Comment on above: Performed By: #### 2 4323-8 #### MIK FREITAS ([id number]) [facility] ([facility]) [address] [place] [address] Sodium [Moles/Vol] 136 mmol/L Normal 136-145 [facility] Comment on above: Performed By: #### 2 4323-8 #### MIK FREITAS ([id number]) [facility] ([facility]) [address] [place] [address] Urea nitrogen [Mass/Vol] 13 mg/dL Normal 6-23 [facility] Comment on above: Performed By: #### 2 4323-8 #### MIK FREITAS ([id number]) [facility] ([facility]) [address] [place] [address] Albumin BCP dye [Mass/Vol] 4.7 g/dL 3.4 - 5.0 g/dL [facility] ALP [Catalytic activity/Vol] 61 U/L 33 - 110 U/L [facility] ALT With P-5'-P [Catalytic activity/Vol] 27 U/L 7 - 45 U/L [facility] Comment on above: Patients treated wit h Sulfasalazine may generate falsely decreased results for ALT. Anion gap [Moles/Vol] 11 mmol/L 10 - 20 mmol/L [facility] AST With P-5'-P [Catalytic activity/Vol] 23 U/L 9 - 39 U/L [facility] Bilirubin [Mass/Vol] 0.5 mg/dL 0.0 - 1 .2 mg/dL [facility] Calcium [Mass/Vol] 9.4 mg/dL 8.6 - 10. 3 mg/dL [facility] Chloride [Moles/Vol] 101 mmol/L 98 - 10 7 mmol/L [facility] CO2 [Moles/Vol] 28 mmol/L 21 - 32 mmol/L [facility] Creatinine [Mass/Vol] 0.75 mg/dL 0.50 - 1.05 mg/dL [facility] eGFR - PINF [facility] Comment on above: Calculations of danielle mated GFR are performed using the 2020 CKD-EPI Study Refit equation without the race variable for the IDMS-Traceable creatinine methods. https://jasn.asnjournals.org/content//ASN.2116796 988 Glucose [Mass/Vol] 108 mg/dL High 74 - 99 mg/dL [facility] Interpretation and review of laboratory results Abnormal [facility] Potassium [Moles/Vol] 3.8 mmol/L 3.5 - 5.3 mmol/L [facility] Protein [Mass/Vol] 7.8 g/dL 6.4 - 8.2 g/dL [facility] Sodium [Moles/Vol] 136 mmol/L 136 - 145 mmol/L [facility] Urea nitrogen [Mass/Vol] 13 mg/dL 6 - 23 mg/dL [facility] ECG 12-LEADon 08-07-2023 ECG 12-LEAD Ventricular Rate 73 Atrial Rate 73 P-R Interval 168 QRS Duration 70 Q-T Interval 392 QTC Calculation(Bazett) 431 P Amber 32 R Amber 43 T Amber 24 QRS Count 12 Q Onset 225 P Onset 141 P Offset 194 T Offset 421 QTC Fredericia 418 Diagnosis Normal sinus rhythm Septal infarct , age undetermined Abnormal ECG No previous ECGs available Confirmed by Josie Anthony ([id number]) on 08/29/2023 9:59:19 PM Normal [facility] No Panel Informationon 08-07 Radiology Study observation (narrative) [facility] Work Phone: PT Coag (PPP) [Time]on 08-07 INR Coag (PPP) [Relative time] 1.0 Normal 0.9-1.1 [facility] Comment on above: Performed By: #### 5 902-2 #### MIK FREITAS ([id number]) [facility] ([facility]) [address] [place] [address] INR Coag (PPP) [Relative time] 1.0 {INR} 0.9 - 1.1 [facility] Interpretation and review of laboratory results Normal [facility] Protime-INRon 08-07-2023 PT Coag (PPP) [Time] 11.1 s [facility] CBC AUTO DIFFon 08-08-2022 BASO # 0.0 103/ul Normal 0.0-0.1 [facility] Comment on above: Performed By: #### C BC #### [facility] [address] [address] [address] Enrique Parkinson Basophils/100 WBC (Bld) 0.6 % Normal 0.2-2.0 [facility] Comment on above: Performed By: #### C BC #### [facility] [address] [address] [address] Enrique Parkinson EO # 0.1 103/ul Normal 0.0-0.7 [facility] Comment on above: Performed By: #### C BC #### [facility] [address] [place] [address] Dr. Enrique Parkinson Eosinophils/100 WBC (Bld) 0.9 % Normal 0.9-7.0 [facility] Comment on above: Performed By: #### C BC #### [facility] [address] [place] [address] Dr. Enrique Parkinson Erythrocyte distribution width (RBC) [Ratio] 12.9 % Normal 11.0-15.0 [facility] Comment on above: Performed By: #### C BC #### [facility] [address] [place] [address] Dr. Enrique Parkinson Hematocrit (Bld) [Volume fraction] 41.5 % Normal 36.0-48.0 [facility] Comment on above: Performed By: #### C BC #### [facility] [address] [place] [address] Dr. Enrique Parkinson Hemoglobin (Bld) [Mass/Vol] 14.3 g/dL Normal 12.0-16.0 [facility] Comment on above: Performed By: #### C BC #### [facility] [address] [place] [address] Dr. Enrique Parkinson IG # 0.02 10e3/ul Normal 0.00-0.03 [facility] Comment on above: Performed By: #### C BC #### [facility] [address] [place] [address] Dr. Enrique Parkinson IG % 0.3 % Normal 0.0-0.5 [facility] Comment on above: Performed By: #### C BC #### [facility] [address] [place] [address] Dr. Enrique Parkinson LYMPH # 1.8 103/ul Normal 1.2-3.8 [facility] Comment on above: Performed By: #### C BC #### [facility] [address] [place] [address] Dr. Enrique Parkinson Lymphocytes/100 WBC (Bld) 25.9 % Normal 20.5-60.0 [facility] Comment on above: Performed By: #### C BC #### [facility] [address] [place] [address] Dr. Enrique Parkinson MANUAL DIFF REQ NO Normal [facility] Comment on above: Performed By: #### C BC #### [facility] [address] [place] [address] Dr. Enrique Parkinson MCH (RBC) [Entitic mass] 30.2 pg Normal 26.7-34.0 [facility] Comment on above: Performed By: #### C BC #### [facility] [address] [place] [address] Dr. Enrique Parkinson MCHC (RBC) [Mass/Vol] 34.5 g/dL Normal 29.9-35.2 [facility] Comment on above: Performed By: #### C BC #### [facility] [address] [place] [address] Dr. Enrique Parkinson MCV (RBC) [Entitic vol] 87.6 fL Normal 81.0-99.0 [facility] Comment on above: Performed By: #### C BC #### [facility] [address] [place] [address] Dr. Enrique Parkinson MONO # 0.4 103/ul Normal 0.3-0.8 [facility] Comment on above: Performed By: #### C BC #### [facility] [address] [place] [address] Dr. Enrique Parkinson Monocytes/100 WBC (Bld) 5.1 % Normal 1.7-12.0 [facility] Comment on above: Performed By: #### C BC #### [facility] [address] [place] [address] Dr. Enrique Parkinson NEUT # 4.6 103/ul Normal 1.4-6.5 [facility] Comment on above: Performed By: #### C BC #### [facility] [address] [place] [address] Dr. Enrique Parkinson Neutrophils/100 WBC (Bld) 67.2 % Normal 43.0-75.0 [facility] Comment on above: Performed By: #### C BC #### [facility] [address] [place] [address] Dr. Enrique Parkinson Platelet mean volume (Bld) [Entitic vol] 9.2 fL Critically low 9.5-13.5 [facility] Comment on above: Performed By: #### C BC #### [facility] [address] [place] [address] Dr. Enrique Parkinson PLT 246 103/ul Normal 150-450 [facility] Comment on above: Performed By: #### C BC #### [facility] [address] [place] [address] Dr. Enrique Parkinson RBC 4.74 106/ul Normal 4.20-5.40 [facility] Comment on above: Performed By: #### C BC #### [facility] [address] [place] [address] Dr. Enrique Parkinson WBC 6.9 103/ul Normal 4.0-11.0 [facility] Comment on above: Performed By: #### C BC #### [facility] [address] [place] [address] Dr. Enrique Parkinson FREE T3on 08-08-2022 FREE T3 2.43 pg/mlL Normal 2.18-3.98 [facility] Comment on above: Performed By: #### T 4, TSH, LIPID, CMP, FT3 #### [facility] [address] [place] [address] Dr. Enrique Parkinson GLYCOHEMOGLOBIN A1Con 2022 ADA RECOMMENDATION SEE BELOW Normal [facility] Comment on above: Result Comment: ADA RECOMMENDED LIMIT 4.0 - 6.0 ADA THERAPEUTIC TARGET < 7.0 ACTION SUGGESTED > 7.0 Performed By: #### A 1C #### [facility] [address] [address] [address] Enrique Parkinson Glucose [Mass/Vol] 114 mg/dL Normal [facility] Comment on above: Performed By: #### A 1C #### [facility] [address] [place] [address] Dr. Enrique Parkinson HbA1c (Bld) [Mass fraction] 5.6 % Normal 4.5-6.2 [facility] Comment on above: Performed By: #### A 1C #### [facility] [address] [place] [address] Dr. Enrique Parkinson LIPID PROFILEon 08-08-2022 CHOL-HDL RATIO NORM SEE BELOW Normal [facility] Comment on above: Result Comment: 3.3 - 4.4 LOW RISK 4.4 - 7.1 AVERAGE RISK 7.1 - 11.0 MODERATE RISK >11.0 HIGH RISK Performed By: #### T 4, TSH, LIPID, CMP, FT3 #### [facility] [address] [place] [address] Dr. Enrique Parkinson Cholesterol [Mass/Vol] 241 mg/dL Critically high <=200 [facility] Comment on above: Performed By: #### T 4, TSH, LIPID, CMP, FT3 #### [facility] [address] [place] [address] Dr. Enrique Parkinson Cholesterol in HDL [Mass/Vol] 45 mg/dL Normal 40-60 [facility] Comment on above: Performed By: #### T 4, TSH, LIPID, CMP, FT3 #### [facility] [address] [place] [address] Dr. Enrique Parkinson Cholesterol in LDL [Mass/Vol] 131.2 mg/dL Normal [facility] Comment on above: Performed By: #### T 4, TSH, LIPID, CMP, FT3 #### [facility] [address] [place] [address] Dr. Enrique Parkinson Cholesterol.total/Ch olesterol in HDL [Mass ratio] 5.4 {ratio} Normal [facility] Comment on above: Performed By: #### T 4, TSH, LIPID, CMP, FT3 #### [facility] [address] [address] [address] Enrique Parkinson HDL NORMAL > or = 60 mg/dl - LO W CARDIOVASCULAR RISK <40 mg/dl - HIGH CARDIOVASCULAR RISK Normal [facility] Comment on above: Performed By: #### T 4, TSH, LIPID, CMP, FT3 #### [facility] [address] [address] [address] Enrique Parkinson LDL CALC NORMAL SEE BELOW Normal [facility] Comment on above: Result Comment: <100 mg/dl OPTIMAL 100 - 129 mg/dl NEAR OR ABOVE OPTIMAL 130 - 159 mg/dl BORDERLINE HIGH 160 - 189 mg/dl HIGH >190 mg/dl VERY HIGH Performed By: #### T 4, TSH, LIPID, CMP, FT3 #### [facility] [address] [address] [address] Enrique Parkinson Triglyceride [Mass/Vol] 324 mg/dL Critically high <=150 [facility] Comment on above: Performed By: #### T 4, TSH, LIPID, CMP, FT3 #### [facility] [address] [address] [address] Enrique Parkinson VLDL CALC 64.8 mg/dL Normal [facility] Comment on above: Performed By: #### T 4, TSH, LIPID, CMP, FT3 #### [facility] [address] [address] [address] Enrique Parkinson PROF 14(COMP METB)on 023 Albumin [Mass/Vol] 4.1 g/dL Normal 3.4-5.0 [facility] Comment on above: Performed By: #### T 4, TSH, LIPID, CMP, FT3 #### [facility] [address] [address] [address] Enrique Parkinson Albumin/Globulin [Mass ratio] 1.1 {ratio} Normal [facility] Comment on above: Performed By: #### T 4, TSH, LIPID, CMP, FT3 #### [facility] [address] [address] [address] Enrique Parkinson ALP [Catalytic activity/Vol] 83 U/L Normal 46-116 [facility] Comment on above: Performed By: #### T 4, TSH, LIPID, CMP, FT3 #### [facility] [address] [place] [address] Dr. Enrique Parkinson ALT [Catalytic activity/Vol] 28 U/L Normal 14-59 [facility] Comment on above: Performed By: #### T 4, TSH, LIPID, CMP, FT3 #### [facility] [address] [place] [address] Dr. Enrique Parkinson Anion gap [Moles/Vol] 12.3 mmol/L Normal [facility] Comment on above: Performed By: #### T 4, TSH, LIPID, CMP, FT3 #### [facility] [address] [place] [address] Dr. Enrique Parkinson AST [Catalytic activity/Vol] 20 U/L Normal 15-37 [facility] Comment on above: Performed By: #### T 4, TSH, LIPID, CMP, FT3 #### [facility] [address] [place] [address] Dr. Enrique Parkinson Bilirubin [Mass/Vol] 0.4 mg/dL Normal 0.2-1.0 [facility] Comment on above: Performed By: #### T 4, TSH, LIPID, CMP, FT3 #### [facility] [address] [place] [address] Dr. Enrique Parkinson Calcium [Mass/Vol] 9.2 mg/dL Normal 8.5-10.1 [facility] Comment on above: Performed By: #### T 4, TSH, LIPID, CMP, FT3 #### [facility] [address] [place] [address] Dr. Enrique Parkinson Chloride [Moles/Vol] 101 mmol/L Normal 98-107 [facility] Comment on above: Performed By: #### T 4, TSH, LIPID, CMP, FT3 #### [facility] [address] [place] [address] Dr. Enrique Parkinson CO2 [Moles/Vol] 29.4 mmol/L Normal 21.0-32.0 [facility] Comment on above: Performed By: #### T 4, TSH, LIPID, CMP, FT3 #### [facility] [address] [place] [address] Dr. Enrique Parkinson Creatinine [Mass/Vol] 0.80 mg/dL Normal 0.55-1.02 [facility] Comment on above: Performed By: #### T 4, TSH, LIPID, CMP, FT3 #### [facility] [address] [place] [address] Dr. Enrique Parkinson EGFR-AF SAMOAN >60 Normal >=60 [facility] Comment on above: Performed By: #### T 4, TSH, LIPID, CMP, FT3 #### [facility] [address] [place] [address] Dr. Enrique Parkinson EGFR-NON AF SAMOAN >60 Normal >=60 [facility] Comment on above: Performed By: #### T 4, TSH, LIPID, CMP, FT3 #### [facility] [address] [place] [address] Dr. Enrique Parkinson Globulin (S) [Mass/Vol] 3.8 g/dL Normal [facility] Comment on above: Performed By: #### T 4, TSH, LIPID, CMP, FT3 #### [facility] [address] [place] [address] Dr. Enrique Parkinson Glucose [Mass/Vol] 111 mg/dL Critically high 74-106 [facility] Comment on above: Performed By: #### T 4, TSH, LIPID, CMP, FT3 #### [facility] [address] [place] [address] Dr. Enrique Parkinsno Potassium [Moles/Vol] 3.7 mmol/L Normal 3.5-5.1 [facility] Comment on above: Performed By: #### T 4, TSH, LIPID, CMP, FT3 #### [facility] [address] [place] [address] Dr. Enrique Parkinson Protein [Mass/Vol] 7.9 g/dL Normal 6.4-8.2 [facility] Comment on above: Performed By: #### T 4, TSH, LIPID, CMP, FT3 #### [facility] [address] [address] [address] Enrique Parkinson Sodium [Moles/Vol] 139 mmol/L Normal 136-145 [facility] Comment on above: Performed By: #### T 4, TSH, LIPID, CMP, FT3 #### [facility] [address] [place] [address] Dr. Enrique Parkinson Urea nitrogen [Mass/Vol] 15.0 mg/dL Normal 7.0-18.0 [facility] Comment on above: Performed By: #### T 4, TSH, LIPID, CMP, FT3 #### [facility] [address] [place] [address] Dr. Enrique Parkinson Urea nitrogen/Creatinine [Mass ratio] 18.8 mg/mg Normal [facility] Comment on above: Performed By: #### T 4, TSH, LIPID, CMP, FT3 #### [facility] [address] [place] [address] Dr. Enrique Parkinson T4on 08-08-2022 T4 [Mass/Vol] 10.30 ug/dL Normal 4.80-13.90 [facility] Comment on above: Performed By: #### T 4, TSH, LIPID, CMP, FT3 #### [facility] [address] [place] [address] Dr. Enrique Parkinson TSHon 08-08-2022 TSH 0.847 uIU/mL Normal 0.358-3.740 [facility] Comment on above: Performed By: #### T 4, TSH, LIPID, CMP, FT3 #### [facility] [address] [place] [address] Dr. Enrique Parkinson VITAMIN D 25 OHon 08-08-2022 VIT D 25-OH 35.8 ng/mL Normal [facility] Comment on above: Performed By: #### V ITAD #### [facility] [address] [place] [address] Dr. Enrique Parkinson VIT D RANGES SEE BELOW Normal [facility] Comment on above: Result Comment: <20 ng/mL Vit D deficient 20 - <30 ng/mL Vit D insufficient 30 - 100 ng/mL Vit D sufficient >100 ng/mL Potential Toxicity Performed By: #### V ITAD #### [facility] [address] [place] [id number] Enrique Parkinson Covid-19 PCR ([facility])on 12-15 SARS-CoV-2 (COVID-19) RNA RENATO+probe Ql (Unsp spec) Not detected Normal NOT DETECTED [facility] Comment on above: Result Comment: This test is not yet approved or cleared by the [place] FDA. When there are no FDA-approved or cleared tests available, and other criteria are met, FDA can make tests available under an emergency access mechanism called an Emergency Use Authorization (EUA). The EUA for this test is supported by the Photogrammetrist of Health and Human Service's (HHS's) declaration that circumstances exist to justify the emergency use of in vitro diagnostics for the detection and/or diagnosis of the virus that causes COVID-19. This EUA will remain in effect (meaning this test can be used) for the duration of the COVID-19 declaration justifying emergency of IVDs, unless it is terminated or revoked by FDA (after which the test may no longer be used). When diagnostic testing is negative, the possibility of a false negative should be considered in the context of a patient's recent exposures and the presence of clinical signs and symptoms consistent with SARS-CoV-2. Performed By: #### C VDTB #### [facility] [address] [place] [address] [address] Enrique Parkinson SYMPTOMATIC COVID-19 ANTIGEN on 01-04-2022 EUA Statement SEE BELOW Normal [facility] Comment on above: Result Comment: This test has not been FDA cleared or approved, but has been authorized by the FDA under an Emergency Use Authorization (EUA) for use by authorized laboratories certified under CLIA that meet the requirements to perform moderate or high complexity testing. This test has been authorized only for the detection of proteins from SARS-CoV-2, not for any other viruses or pathogens. The emergency use of this test is authorized for the duration of the declaration that circumstances exist justifying the authorization of emergency use of in vitro diagnostic tests for detection and/or diagnosis of Covid-19 under section 564(b)(1) of the Act, 21 U.S.C. 360bbb-3(b)(1), unless the declaration is terminated or authorization is revoked sooner. Performed By: #### C VDAGS #### [facility] [address] [place] [address] Dr. Enrique Parkinson SARS-CoV-2 (COVID-19) RNA RENATO+probe Ql (Unsp spec) Negative Normal NEGATIVE [facility] Comment on above: Performed By: #### C VDAGS #### [facility] [address] [place] [address] Dr. Enrique Parkinson PAP ACOG PANEL 2: 30 to 65on 11-19-2021 . . Normal [facility] Comment on above: Result Comment: Perf ormed at: WB Performed By: #### C VDAGS #### [facility] [address] [place] [address] Dr. Enrique Parkinson Age Gdln ACOG Testing 30-65 Normal [facility] Comment on above: Performed By: #### C VDAGS #### [facility] [address] [place] [address] Dr. Enrique Parkinson DIAGNOSIS: Comment Normal [facility] Comment on above: Result Comment: NEGA TIVE FOR INTRAEPITHELIAL LESION OR MALIGNANCY. Performed at: WB Performed By: #### C VDAGS #### [facility] [address] [place] [address] Dr. Enrique Parkinson HPV Aptima Negative Normal Negative [facility] Comment on above: Result Comment: This nucleic acid amplification test detects fourteen high-risk HPV types (16,18,31,33,35,39,45,51,52,56,58,59,66,68) without differentiation. Performed at: =G Performed By: #### C VDAGS #### [facility] [address] [place], [place] [id number] Dr. Enrique Parkinson Methodology: Comment Normal [facility] Comment on above: Result Comment: This liquid based ThinPrep(R) pap test was screened with the use of an image guided system. Performed at: WB Performed By: #### C VDAGS #### [facility] [address] [place] [address] Dr. Enrique Parkinson Note: Comment Normal [facility] Comment on above: Result Comment: The Pap smear is a screening test designed to aid in the detection of premalignant and malignant conditions of the uterine cervix. It is not a diagnostic procedure and should not be used as the sole means of detecting cervical cancer. Both false-positive and false-negative reports do occur. . Performed at: WB Performed By: #### C VDAGS #### [facility] [address] [address] [address] Enrique Parkinson Performed by: Comment Normal [facility] Comment on above: Result Comment: Hipolito Rosenberg, Dispute Resolution Specialist (ASCP) Performed at: WB Performed By: #### C VDAGS #### [facility] [address] [place] [address] Dr. Enrique Parkinson Specimen adequacy: Comment Normal [facility] Comment on above: Result Comment: Sati sfactory for evaluation. Endocervical and/or squamous metaplastic cells (endocervical component) are present. Performed at: WB Performed By: #### C VDAGS #### [facility] [address] [place] [address] Dr. Enrique Parkinson Vital Signs Date Time Vital Sign Value Performing Clinician Facility 08-07-2023 10:27-0500 Diastolic blood pressure 94 mm[Hg] Aruba Dennison DO Work Phone: [facility] 08-07-2023 10:27-0500 Heart rate 77 /min Aruba Dennison DO Work Phone: [facility] 08-07-2023 10:27-0500 SaO2% (BldA) [Mass fraction] 98 % Aruba Dennison DO Work Phone: [facility] 08-07-2023 10:27-0500 Systolic blood pressure 140 mm[Hg] Aruba Dennison DO Work Phone: [facility] 08-07-2023 08:01-0500 Body height 167.6 cm Aruba Dennison DO Work Phone: [facility] 08-07-2023 08:01-0500 Body mass index (BMI) [Ratio] 29.05 kg/m2 Aruba Dennison DO Work Phone: [facility] 08-07-2023 08:01-0500 Body temperature 98.1 [degF] Aruba Dennison DO Work Phone: [facility] 08-07-2023 08:01-0500 Body weight 81.65 kg Aruba Dennison DO Work Phone: [facility] 08-07-2023 08:01-0500 Respiratory rate 16 /min Aruba Dennison DO Work Phone: [facility] 12-14-2022 14:45-0400 Body height 167.64 cm Mirta Chacko Other [employer] Other 12-14-2022 14:45-0400 Body mass index (BMI) [Ratio] 30.18 kg/m2 Mirta Chacko Other [employer] Other 12-14-2022 14:45-0400 Body temperature 97.8 [degF] Mirta Chacko Other [employer] Other 12-14-2022 14:45-0400 Body weight 84.82 kg Mirta Chacko Other [employer] Other 12-14-2022 14:45-0400 Respiratory rate 18 /min Mirta Chacko Other [employer] Other 12-14-2022 14:45-0400 SaO2% (BldA) [Mass fraction] 98 % Mirta Chacko Other [employer] Other Encounters Encounter Date Encounter Type Care Provider Facility Start: 08-07-2023 End: 08-07-2023 Emergency department patient visit RAKESH LUNDBERG [facility] Start: 08-07-2023 End: 08-07-2023 Emergency department patient visit Raj Webber Miracle DO Work Phone: [facility] Comment on above: Fall, initial encoun ter (Primary Dx); Closed head injury, initial encounter Start: 12-14-2022 End: 12-14-2022 ambulatory Mirta Chacko Other [employer] Other Start: 12-14-2022 Office outpatient ne w 30 minutes Mirta Chacko [facility] Start: 08-09-2022 Encounter for genera l adult medical examination without abnormal findings DR RAKESH LUNDBERG [facility] Start: 08-08-2022 End: 08-09-[address] RAKESH LUNDBERG Facility:[facility] Start: 08-08-2022 End: 08-09-2022 Encounter for general adult medical examination without abnormal findings DR RAKESH LUNDBERG Facility:[facility] Start: 02-27-2022 End: 06-08-[address] RAKESH LUNDBERG Facility:[facility] Start: 01-04-2022 End: 01-04-[address] RAKESH LUNDBERG Facility:[facility] Start: 11-14-2021 End: 11-14-[address] RAKESH LUNDBERG Facility:[facility] Start: 10-07-2021 End: 01-16-[address] RAKESH LUNDBERG Facility:[facility] Procedures Date Procedure Procedure Detail Performing Clinician Start: 08-07-2023 CT CERVICAL SPINE WO IV CONTRAST RAKESH SAULO Start: 08-07-2023 CT THORACIC SPINE WO IV CONTRAST RAKESH HOPennie Start: 08-07-2023 CT HEAD WO IV CONTRAST RAKESH HOPennie Start: 08-07-2023 ECG 12-LEAD RAKESH HO Y Start: 08-07-2023 CBC W Auto Different ial panel - Blood RAKESH HOY Start: 08-07-2023 Comprehensive metabo lic 2000 panel - Serum or Plasma RAKESH HOY Start: 08-07-2023 PROTIME-INR RAKESH HO Y Start: 08-07-2023 Ct cervical spine w/ o contrast material Dimple Madrid DO Work Phone: Start: 08-07-2023 Ct head/brain w/o co ntrast material Dimple Casanova Sales DO Work Phone: Start: 08-07-2023 Ecg routine ecg w/le ast 12 lds trcg only w/o i&r Dimple Casanova Sales DO Work Phone: Start: 08-07-2023 Comprehensive metabo lic panel Dimple Casanova Sales DO Work Phone: Plan of Treatment Date Care Activity Detail Author Start: 03-16-2023 Influenza vaccination Influenza Vacc ine (#1) [facility] Start: 05-24-2021 COVID-19 Vaccine (3 - Pfizer series) COVID-19 Vaccine (3 - Pfizer series) [facility] Start: 2017 Zoster Vaccines (1 of 2) Zoste r Vaccines (1 of 2) [facility] Start: 2007 Screening for malign ant neoplasm of breast Mammogram [facility] Start: 1989 DTaP/Tdap/Td Vaccine s (1 - Tdap) DTaP/Tdap/Td Vaccines (1 - Tdap) [facility] Start: 01-06-1988 Screening for malign ant neoplasm of cervix [facility] Start: 1985 Diabetes mellitus screening Diabetes Screening [facility] Start: 1985 Hepatitis C screening Hepatitis C Sc reening [facility] Start: 01-06-1968 MMR Vaccines (1 of 1 - Standard series) MMR Vaccines (1 of 1 - Standard series) [facility] Start: 1967 Hepatitis B Vaccines (1 of 3 - 3-dose series) Hepatitis B Vaccines (1 of 3 - 3-dose series) [facility] Start: 1967 HIV screening HIV Screening [facility] Start: 1967 Lipid panel Lipid Panel [facility] Start: 1967 Screening for malign ant neoplasm of colon [facility] Start: 1967 Yearly Adult Physical Yearly Adult P hysical [facility] ECG 12 lead ECG 12 lead ECG STAT 08/07/2023 8:33 AM EST [facility] Service Area Work Phone: Payers Date Payer Category Payer Unknown [id number] 2020 Unknown [facility] [id number] 2020-Present Sada Trimble [id number] [place] [address] [id number] 1967 Unknown [id number] 1967 Unknown [id number] 1967 Unknown [id number] 1967 Unknown [id number] 1967 Unknown [id number] 1967 Unknown [id number] 1957 Self-pay [id number] 1957 Unknown [id number] Social History Date Type Detail Facility Unknown if ever smoked [facility] [employer] Other Sex Assigned At [employer] [facility] [employer] Other Tobacco smoking status [facility] Tobacco smoking consumption unknown [facility] Work Phone: Start: 1965 Sex Assigned At Not on file [facility] Work Phone: Start: 07-28-2023 End: 08-07-2023 Exposure to SARS-CoV-2 (event) Not sure [facility] Work Phone: Hospital Discharge instructions 08-07-2023 Discharge Instructions Note Date & Type Note Facility 08-07-2023 Hospital Discharg e instructions Dimple Madrid DO - 08/07/2023 10:23 AM EST If you develop uncontrollable nausea or vomiting, vision changes, if it becomes difficult to wake up, or if you become disoriented or have significant neck pain, please return to the emergency department. Please understand that with a closed head injury, you may have concussion symptoms: Headaches and light sensitivity for several weeks. please allow yourself to rest, and follow-up with your primary care provider as needed. You will feel more sore tomorrow than you do today, and you may notice bruising develop in the next few days across your chest and belly where you fell. You may use ice packs to particularly sore areas, and you may alternate tylenol and ibuprofen every 4 hours as needed for pain. documented in this encounter [facility] Work Phone: Evaluation note 12-14-2022 Note Date & Type Note Facility 12-14-2022 Evaluation note Encounter Date Diagnosis Assessment Notes Dec, Low back strain, initial encounter (ICD-10 - S39.012A) 60 mg of Toradol given IM in office. May resume NSAIDs tomorrow. May use Tylenol in between as needed. Heat and gentle stretching as tolerated encouraged. May use topical muscle rubs such as Biofreeze. Will Rx as needed Flexeril. May cause drowsiness, caution advised. Patient is advised to follow-up with PCP if not gradually improving over the next 5 to 7 days or significantly worsening. Avoid strenuous activity until symptoms have resolved. Patient verbalized understanding of treatment plan [employer] Other Evaluation note Note Date & Type Note Facility Evaluation note Diagnosis Fall, initial encounter- Primary Closed head injury, initial encounter documented in this encounter [facility] Work Phone: History general Narrative - Reported Note Date & Type Note Facility History general Narrative - Reported Type Medical History high blood pressure Medical History thyroid disease Surgical History C section Surgical History lobectomy Surgical History wrist surgery Surgical History bowel surgery Hospitalization History see above [employer] Other Summary Purpose Family History No Family History Records FoundNo Family History Records FoundNo Family History Records Found Advance Directives No Advanced Directives Records FoundNo Advanced Directives Records FoundNo Advanced Directives Records Found Additional Source Comments INFORMATION SOURCE (unrecogn ized section and content) DATE CREATED AUTHOR 08/14/2022 [facility] DATE CREATED AUTHOR AUTHOR'S ORGANIZ ATION 08/31/2023 [facility] DATE CREATED AUTHOR AUTHOR'S ORGANIZ ATION 10/07/2023 [facility] REASON FOR VISIT (unrecogniz ed section and content) Reason Comments Fall Hit head and upper b ack; +LOC no thinners Scheduled Active and Recently Administ ered Medications (unrecognized section and content) Medication Order 08/05/2023 08/06/2023 08/07/2023 fentaNYL PF (Sublimaze) injection 50 mcg (COMPLETED) 50 mcg, intravenous, Once, On Sun08/07/23 at 0815, For 1 dose 0825 (Given - Provid er: Miya Forte RN) Care Teams (unrecognized sec tion and content) Supervisor Paper Machine Relationship Specialty Start Date End Date Rakesh Lundberg MD [address] [facility] [place] [address] PCP - General 09/06/09 FOR RECORDS PERTAINING TO PATIENTS WHO ARE OR HAVE BEEN ENROLLED IN A CHEMICAL DEPENDENCY/SUBSTANCEABUSE PROGRAM, SOME INFORMATION MAY BE OMITTED. This clinical summary was aggregated from multiple sources. Caution should be exercised in using it in the provision of clinical care. This summary normalizes information from multiple sources, and as a consequence, information in this document may materially change the coding, format and clinical context of patient data. In addition, data may be omitted in some cases. CLINICAL DECISIONS SHOULD BE BASED ON THE PRIMARY CLINICAL RECORDS. [employer] provides no warranty or guarantee of the accuracy or completeness of information in this document.
[2024-02-08 09:20] LABS: Internal Control Within Normal Limits; SARS-CoV-2 Ag POSITIVE (NEGATIVE)
== END 2024-02-08 08:53 | disposition home or self-care (01) ==
LOC: LAB 08:52
PROVIDERS: PCP Family Medicine; Visit Provider Family Medicine
DX: R09.81 Nasal congestion (principal)
CPT/HCPCS: 87811

== ENCOUNTER 2024-02-13 14:16 | Outpatient (OUT) | payer BC, SELFPAY ==
--- NOTE | 2024-02-13 14:23 | CT_ITS ---
[address] [address] Patient Name: PRAVEENA DACOSTA MRN: [id number] date: 1965 Sex: F Assigned Patient Location: CT Current Patient Location: CT Accession/Order Number: [id number] Exam Date: 02/13/2024 14:28 Report Date: 02/13/2024 15:12 At the request of: RAKESH VERNON Procedure: CT angio chest EXAMINATION: CT angio chest HISTORY: COVID U07.1, Acute Bronchitis J20.9, Pleurisy COMPARISON: No relevant comparison available. TECHNIQUE: Multi-planar CT images were created with IV contrast. Axial, Coronal, and Sagittal images. Dose reduction techniques were achieved by using automated exposure control and/or adjustment of mA and/or kV according to patient size and/or use of iterative reconstruction technique. FINDINGS: LUNGS: Scattered linear densities and calcifications, chronic scarring is favored. Mild dependent atelectasis. No focal parenchymal infiltrates or significant pulmonary nodules PLEURA: No mass, effusion, or pneumothorax. VASCULATURE: Normal postcontrast opacification of the central pulmonary arterial tree with no filling defects MALU: Small calcified right hilar lymph nodes MEDIASTINUM: No mass or adenopathy. CARDIAC: No enlargement or pericardial effusion Coronary arteries: Minimal calcifications AORTA: Prominent ascending thoracic aorta measuring 3.7 cm in diameter. No aortic dissection CHEST WALL: No mass or axillary adenopathy. BONES: No bone lesion or fracture. LIMITED ABDOMEN: No suspicious findings. Limited images of the upper abdomen. OTHER: Negative. CT/CT angio chest IMPRESSION: No central pulmonary thromboembolic disease No focal pneumonia Electronically authenticated by: VANESSA GENTILE Date: 02/13/2024 15:12
--- OUTSIDE RECORDS SUMMARY | 2024-02-13 14:24 | XMS_ITS | CCD ---
Author Organization [facility] Care Team Providers Care Ham Pumper Name Role Phone DR RAKESH LUNDBERG Primary Care Unavailable DAVIE, DR NOBLE Admitting Unavailable DAVIE, DR NOBLE Attending Unavailable DAVIE, DR NOBLE Consulting Unavailable [...] Codeine; Translations: [CODEINE] Drug Allergy 4 [facility] (1 source) diphenhydrAMINE Drug Allergy 6 [facility] (1 source) Erythromycin Drug Allergy 4 [facility] (1 source) Penicillins Drug allergy (disorder) 4 [facility] (1 source) Penicillin Drug Allergy rash [facility] Other (2 sources) Amoxicillin; Translations: [AMOXICILLIN] Drug Allergy 3 [facility] (1 source) Codeine Drug Allergy 4 Anxiety [facility] Work Phone: Medications Current Medications Medication Drug [...] Basophils (Bld) [#/Vol] 0.03 x10*3/uL Normal 0.00-0.10 [facility] Comment on above: Performed By: #### 5 7021-8 #### MIK FREITAS ([id number]) [facility] ([facility] [address] [place] [address] Basophils/100 WBC (Bld) 0.4 % Normal 0.0-2.0 [facility] Comment on above: Performed By: #### 5 7021-8 #### MIK FREITAS ([id number]) [facility] ([facility] [address] [place] [address] Eosinophils (Bld) [#/Vol] 0.06 x10*3/uL Normal 0.00-0.70 [facility] Comment on above: Performed By: #### 7021-8 #### MIK FREITAS ([id number]) [facility] ([facility] [address] [place] [address] Eosinophils/100 WBC (Bld) 0.9 % Normal 0.0-6.0 [facility] Comment on above: Performed By: #### 7021-8 #### MIK FREITAS ([id number]) [facility] ([facility] [address] [place] [address] Erythrocyte distribution width (RBC) [Ratio] 13.2 % Normal 11.5-14.5 [facility] Comment on above: Performed By: #### 7021-8 #### MIK FREITAS ([id number]) [facility] ([facility] [address] [place] [address] Hematocrit (Bld) [Volume fraction] 41.6 % Normal 36.0-46.0 [facility] Comment on above: Performed By: #### 7021-8 #### MIK FREITAS ([id number]) [facility] ([facility] [address] [place] [address] Hemoglobin (Bld) [Mass/Vol] 13.8 g/dL Normal 12.0-16.0 [facility] Comment on above: Performed By: #### 7021-8 #### MIK FREITAS ([id number]) [facility] ([facility] [address] [place] [address] Immature granulocytes (Bld) [#/Vol] 0.07 x10*3/uL Normal 0.00-0.70 [facility] Comment on above: Performed By: #### 7021-8 #### MIK FREITAS ([id number]) [facility] ([facility] [address] [place] [address] Immature granulocytes/100 WBC (Bld) 1.0 % High 0.0-0.9 [facility] Comment on above: Result Comment: Azul ture Granulocyte Count (IG) includes promyelocytes, myelocytes and metamyelocytes but does not include bands. Percent differential counts (%) should be interpreted in the context of the absolute cell counts (cells/UL). Performed By: #### 5 7021-8 #### MIK FREITAS ([id number]) [facility] ([facility] [id number] [place] [address] Lymphocytes (Bld) [#/Vol] 2.17 x10*3/uL Normal 1.20-4.80 [facility] Comment on above: Performed By: #### 5 7021-8 #### MIK FREITAS ([id number]) [facility] ([facility] [address] [place] [address] Lymphocytes/100 WBC (Bld) 32.1 % Normal 13.0-44.0 [facility] Comment on above: Performed By: #### 5 7021-8 #### MIK FREITAS ([id number]) [facility] ([facility] [address] [place] [address] MCH (RBC) [Entitic mass] 29.6 pg Normal 26.0-34.0 [facility] Comment on above: Performed By: #### 5 7021-8 #### MIK FREITAS ([id number]) [facility] ([facility] [address] [place] [address] MCHC (RBC) [Mass/Vol] 33.2 g/dL Normal 32.0-36.0 [facility] Comment on above: Performed By: #### 5 7021-8 #### MIK FREITAS ([id number]) [facility] ([facility] [address] [place] [address] MCV (RBC) [Entitic vol] 89 fL Normal 80-100 [facility] Comment on above: Performed By: #### 5 7021-8 #### MIK FREITAS ([id number]) [facility] ([facility] [address] [place] [address] Monocytes (Bld) [#/Vol] 0.32 x10*3/uL Normal 0.10-1.00 [facility] Comment on above: Performed By: #### 5 7021-8 #### MIK FREITAS ([id number]) [facility] ([facility] [address] [place] [address] Monocytes/100 WBC (Bld) 4.7 % Normal 2.0-10.0 [facility] Comment on above: Performed By: #### 5 7021-8 #### MIK FREITAS ([id number]) [facility] ([facility] [address] [place] [address] Neutrophils (Bld) [#/Vol] 4.12 x10*3/uL Normal 1.20-7.70 [facility] Comment on above: Result Comment: Perc ent differential counts (%) should be interpreted in the context of the absolute cell counts (cells/uL). Performed By: #### 5 7021-8 #### MIK FREITAS ([id number]) [facility] ([facility] [address] [place] [address] Neutrophils/100 WBC (Bld) 60.9 % Normal 40.0-80.0 [facility] Comment on above: Performed By: #### 5 7021-8 #### MIK FREITAS ([id number]) [facility] ([facility] [address] [place] [address] Nucleated RBC/100 WBC (Bld) [Ratio] 0.0 /100 WBCs Normal 0.0-0.0 [facility] Comment on above: Performed By: #### 5 7021-8 #### MIK FREITAS ([id number]) [facility] ([facility] [address] [place] [address] Platelets (Bld) [#/Vol] 234 x10*3/uL Normal 150-450 [facility] Comment on above: Performed By: #### 5 7021-8 #### MIK FREITAS ([id number]) [facility] ([facility] [address] [place] [address] RBC (Bld) [#/Vol] 4.66 x10*6/uL Normal 4.00-5.20 [facility] Comment on above: Performed By: #### 5 7021-8 #### MIK FREITAS ([id number]) [facility] ([facility] [address] [place] [address] WBC (Bld) [#/Vol] 6.8 x10*3/uL Normal 4.4-11.3 [facility] Comment on above: Performed By: #### 5 7021-8 #### MIK FREITAS ([id number]) [facility] ([facility] [address] [place] [address] Basophils (Bld) [#/Vol] 0.03 10*3/uL [facility] Basophils/100 WBC (Bld) 0.4 % 0.0 - 2.0 % [facility] Eosinophils (Bld) [#/Vol] 0.06 10*3/uL [facility] Eosinophils/100 WBC (Bld) 0.9 % 0.0 - 6.0 % [facility] Erythrocyte distribution width (RBC) [Ratio] 13.2 % 11.5 - 14.5 % [facility] Hematocrit (Bld) [Volume fraction] 41.6 % 36.0 - 46.0 % [facility] Hemoglobin (Bld) [Mass/Vol] 13.8 g/dL 12.0 - 16.0 g/dL [facility] Immature granulocytes (Bld) [#/Vol] 0.07 10*3/uL [facility] Immature granulocytes/100 WBC (Bld) 1.0 % High 0.0 - 0.9 % [facility] Comment on above: Immature Granulocyte Count (IG) includes promyelocytes, myelocytes and metamyelocytes but does not include bands. Percent differential counts (%) should be interpreted in the context of the absolute cell counts (cells/UL). Interpretation and review of laboratory results Abnormal [facility] Lymphocytes (Bld) [#/Vol] 2.17 10*3/uL [facility] Lymphocytes/100 WBC (Bld) 32.1 % 13.0 - 44.0 % [facility] MCH (RBC) [Entitic mass] 29.6 pg 26.0 - 34.0 pg [facility] MCHC (RBC) [Mass/Vol] 33.2 g/dL 32.0 - 36.0 g/dL [facility] MCV (RBC) [Entitic vol] 89 fL 80 - 100 fL [facility] Monocytes (Bld) [#/Vol] 0.32 10*3/uL [facility] Monocytes/100 WBC (Bld) 4.7 % 2.0 - 10.0 % [facility] Neutrophils (Bld) [#/Vol] 4.12 10*3/uL [facility] Comment on above: Percent differential counts (%) should be interpreted in the context of the absolute cell counts (cells/uL). Neutrophils/100 WBC (Bld) 60.9 % 40.0 - 80.0 % [facility] Nucleated RBC/100 WBC (Bld) [Ratio] 0.0 % [facility] Platelets (Bld) [#/Vol] 234 10*3/uL [facility] RBC (Bld) [#/Vol] 4.66 10*6/uL [facility] WBC (Bld) [#/Vol] 6.8 10*3/uL [facility] CT CERVICAL SPINE WO IV CONT Phoebe 08-07-2023 CT CERVICAL SPINE WO IV CONTRAST Interpreted By: Willy Anderson, STUDY: CT CERVICAL SPINE WO IV CONTRAST; 08/07/2023 9:01 am INDICATION: Signs/Symptoms:Mechan ical fall, no thinners, positive LOC. COMPARISON: None. ACCESSION NUMBER(S): [id number] ORDERING CLINICIAN: DIMPLE MADRID TECHNIQUE: Axial CT [...] Willy Anderson 08/07/2023 9:41 AM Dictation workstation: [id number] [facility] CT Cervical spine WO contras ton 08-07-2023 No evidence for an acute fracture or subluxation of the cervical spine. MACRO: None Signed by: Willy Anderson 08/07/2023 9:41 AM Dictation workstation: [id number] MMODAL Interpreted By: Willy Anderson, STUDY: CT CERVICAL SPINE WO IV CONTRAST; 08/07/2023 9:01 am INDICATION: Signs/Symptoms:Mechan ical fall, no thinners, positive LOC. COMPARISON: None. ACCESSION NUMBER(S): [id number] ORDERING CLINICIAN: DIMPLE MADRID TECHNIQUE: Axial CT [...] thinners, positive LOC. COMPARISON: None. ACCESSION NUMBER(S): [id number] ORDERING CLINICIAN: DIMPLE MADRID TECHNIQUE: Axial CT [...] Willy Anderson 08/07/2023 9:41 AM Dictation workstation: [id number] [facility] Work Phone: [facility] Work Phone: CT HEAD WO IV CONTRASTon CT HEAD WO IV CONTRAST Interpreted By: Willy Anderson, STUDY: CT HEAD WO IV CONTRAST; 08/07/2023 9:01 am INDICATION: Signs/Symptoms:Mechan ical fall, no thinners, positive LOC. COMPARISON: None. ACCESSION NUMBER(S): [id number] ORDERING CLINICIAN: DIMPLE MADRID TECHNIQUE: Noncontrast axial [...] Willy Anderson 08/07/2023 9:38 AM Dictation workstation: [id number] [facility] CT Head WO contraston 2023 No acute intracrania l hemorrhage, mass effect, or calvarial fracture. MACRO: None Signed by: Willy Anderson 08/07/2023 9:38 AM Dictation workstation: [id number] MMODAL Interpreted By: Willy Anderson, STUDY: CT HEAD WO IV CONTRAST; 08/07/2023 9:01 am INDICATION: Signs/Symptoms:Mechan ical fall, no thinners, positive LOC. COMPARISON: None. ACCESSION NUMBER(S): [id number] ORDERING CLINICIAN: DIMPLE MADRID TECHNIQUE: Noncontrast axial [...] thinners, positive LOC. COMPARISON: None. ACCESSION NUMBER(S): [id number] ORDERING CLINICIAN: DIMPLE MADRID TECHNIQUE: Noncontrast axial [...] Willy Anderson 08/07/2023 9:38 AM Dictation workstation: [id number] [facility] Work Phone: CT Head WO contrastOrdered B y: Willy Anderson on 08-07-2023 [facility] Work Phone: CT THORACIC SPINE WO IV CONT RASTon 08-07-2023 CT THORACIC SPINE WO IV CONTRAST Interpreted By: Willy Anderson, STUDY: CT THORACIC SPINE WO IV CONTRAST; 08/07/2023 9:01 am INDICATION: Signs/Symptoms:Mechan ical fall, no thinners, positive LOC, thoracic spinal tenderness. COMPARISON: None. ACCESSION NUMBER(S): [id number] ORDERING CLINICIAN: DIMPLE MADRID TECHNIQUE: Axial CT [...] Willy Anderson 08/07/2023 9:48 AM Dictation workstation: [id number] [facility] CT Thoracic spine WO contras ton 08-07-2023 No acute osseous abnormality of the thoracic spine. Mild chronic appearing anterior wedging of a few scattered thoracic vertebral bodies as above. MACRO: None Signed by: Willy Anderson 08/07/2023 9:48 AM Dictation workstation: [id number] MMODAL Interpreted By: Willy Anderson, STUDY: CT THORACIC SPINE WO IV CONTRAST; 08/07/2023 9:01 am INDICATION: Signs/Symptoms:Mechan ical fall, no thinners, positive LOC, thoracic spinal tenderness. COMPARISON: None. ACCESSION NUMBER(S): [id number] ORDERING CLINICIAN: DIMPLE MADRID TECHNIQUE: Axial CT [...] thoracic spinal tenderness. COMPARISON: None. ACCESSION NUMBER(S): [id number] ORDERING CLINICIAN: DIMPLE MADRID TECHNIQUE: Axial CT [...] Willy Anderson 08/07/2023 9:48 AM Dictation workstation: [id number] [facility] Work Phone: [facility] Work Phone: Coagulation tissue factor in ducedon 08-07-2023 PT Coag (PPP) [Time] 11.1 s Normal 9.8-12.8 [facility] Comment on above: Performed By: #### 5 902-2 #### MIK FREITAS ([id number]) [facility] ([facility] [address] [place] [address] Comprehensive metabolic 2000 panelon 08-07-2023 Albumin BCP dye [Mass/Vol] 4.7 g/dL Normal 3.4-5.0 [facility] Comment on above: Performed By: #### 2 4323-8 #### MIK FREITAS ([id number]) [facility] ([facility] [address] [place] [address] ALP [Catalytic activity/Vol] 61 U/L Normal 33-110 [facility] Comment on above: Performed By: #### 2 4323-8 #### MIK FREITAS ([id number]) [facility] ([facility] [address] [place] [address] ALT With P-5'-P [Catalytic activity/Vol] 27 U/L Normal 7-45 [facility] Comment on above: Result Comment: [place] ents treated with Sulfasalazine may generate falsely decreased results for ALT. Performed By: #### 2 4323-8 #### MIK FREITAS ([id number]) [facility] ([facility] [address] [place] [address] Anion gap [Moles/Vol] 11 mmol/L Normal 10-20 [facility] Comment on above: Performed By: #### 2 4323-8 #### MIK FREITAS ([id number]) [facility] ([facility] [address] [place] [address] AST With P-5'-P [Catalytic activity/Vol] 23 U/L Normal 9-39 [facility] Comment on above: Performed By: #### 2 4323-8 #### MIK FREITAS ([id number]) [facility] ([facility] [address] [place] [address] Bilirubin [Mass/Vol] 0.5 mg/dL Normal 0.0-1.2 [facility] Comment on above: Performed By: #### 2 4323-8 #### MIK FREITAS ([id number]) [facility] ([facility] [address] [place] [address] Calcium [Mass/Vol] 9.4 mg/dL Normal 8.6-10.3 [facility] Comment on above: Performed By: #### 2 4323-8 #### MIK FREITAS ([id number]) [facility] ([facility] [address] [place] [address] Chloride [Moles/Vol] 101 mmol/L Normal 98-107 [facility] Comment on above: Performed By: #### 2 4323-8 #### MIK FREITAS ([id number]) [facility] ([facility] [address] [place] [address] CO2 [Moles/Vol] 28 mmol/L Normal 21-32 [facility] Comment on above: Performed By: #### 2 4323-8 #### MIK FREITAS ([id number]) [facility] ([facility] [address] [place] [address] Creatinine [Mass/Vol] 0.75 mg/dL Normal 0.50-1.05 [facility] Comment on above: Performed By: #### 2 4323-8 #### MIK FREITAS ([id number]) [facility] ([facility] [address] [place] [address] GFR/1.73 sq M.predicted MDRD (S/P/Bld) [Vol rate/Area] mL/min/{1.73_m2} Normal >60 [facility] Comment on above: Result Comment: Calc ulations of estimated GFR are performed using the 2020 CKD-EPI Study Refit equation without the race variable for the IDMS-Traceable creatinine methods. https://jasn.asnjournals.org/content/early//ASN.5156950 988 Performed By: #### 2 4323-8 #### MIK FREITAS ([id number]) [facility] ([facility] [address] [place] [address] Glucose [Mass/Vol] 108 mg/dL High 74-99 [facility] Comment on above: Performed By: #### 2 4323-8 #### MIK FREITAS ([id number]) [facility] ([facility] [address] [place] [address] Potassium [Moles/Vol] 3.8 mmol/L Normal 3.5-5.3 [facility] Comment on above: Performed By: #### 2 4323-8 #### MIK FREITAS ([id number]) [facility] ([facility] [address] [place] [address] Protein [Mass/Vol] 7.8 g/dL Normal 6.4-8.2 [facility] Comment on above: Performed By: #### 2 4323-8 #### MIK FREITAS ([id number]) [facility] ([facility] [address] [place] [address] Sodium [Moles/Vol] 136 mmol/L Normal 136-145 [facility] Comment on above: Performed By: #### 2 4323-8 #### MIK FREITAS ([id number]) [facility] ([facility] [address] [place] [address] Urea nitrogen [Mass/Vol] 13 mg/dL Normal 6-23 [facility] Comment on above: Performed By: #### 2 4323-8 #### MIK FREITAS ([id number]) [facility] ([facility] [address] [place] [address] Albumin BCP dye [Mass/Vol] 4.7 g/dL 3.4 - 5.0 g/dL [facility] ALP [Catalytic activity/Vol] 61 U/L 33 - 110 U/L [facility] ALT With P-5'-P [Catalytic activity/Vol] 27 U/L 7 - 45 U/L [facility] Comment on above: Patients treated wit h Sulfasalazine may generate falsely decreased results for ALT. Anion gap [Moles/Vol] 11 mmol/L 10 - 20 mmol/L [facility] AST With P-5'-P [Catalytic activity/Vol] 23 U/L 9 - 39 U/L [facility] Bilirubin [Mass/Vol] 0.5 mg/dL 0.0 - 1 .2 mg/dL [facility] Calcium [Mass/Vol] 9.4 mg/dL 8.6 - 10. 3 mg/dL [facility] Chloride [Moles/Vol] 101 mmol/L 98 - 10 7 mmol/L [facility] CO2 [Moles/Vol] 28 mmol/L 21 - 32 mmol/L [facility] Creatinine [Mass/Vol] 0.75 mg/dL 0.50 - 1.05 mg/dL [facility] eGFR - PINF [facility] Comment on above: Calculations of danielle mated GFR are performed using the 2020 CKD-EPI Study Refit equation without the race variable for the IDMS-Traceable creatinine methods. https://jasn.asnjournals.org/content//ASN.9850761 988 Glucose [Mass/Vol] 108 mg/dL High 74 - 99 mg/dL [facility] Interpretation and review of laboratory results Abnormal [facility] Potassium [Moles/Vol] 3.8 mmol/L 3.5 - 5.3 mmol/L [facility] Protein [Mass/Vol] 7.8 g/dL 6.4 - 8.2 g/dL Un [facility] Sodium [Moles/Vol] 136 mmol/L 136 - 145 mmol/L [facility] Urea nitrogen [Mass/Vol] 13 mg/dL 6 - 23 mg/dL [facility] ECG 12-LEADon 08-07-2023 ECG 12-LEAD Ventricular Rate 73 Atrial Rate 73 P-R Interval 168 QRS Duration 70 Q-T Interval 392 QTC Calculation(Bazett) 431 P [place] 32 R [place] 43 T [place] 24 QRS Count 12 Q Onset 225 P Onset 141 P Offset 194 T Offset 421 QTC Fredericia 418 Diagnosis Normal sinus rhythm Septal infarct , age undetermined Abnormal ECG No previous ECGs available Confirmed by Josie Anthony ([id number]) on 08/29/2023 9:59:19 PM Normal [facility] No Panel Informationon 08-07 Radiology Study observation (narrative) [facility] Work Phone: PT Coag (PPP) [Time]on 08-07 INR Coag (PPP) [Relative time] 1.0 Normal 0.9-1.1 [facility] Comment on above: Performed By: #### 5 902-2 #### MIK FREITAS ([id number]) [facility] ([facility] [address] [place] [address] INR Coag (PPP) [Relative time] 1.0 {INR} 0.9 - 1.1 [facility] Interpretation and review of laboratory results Normal [facility] Protime-INRon 08-07-2023 PT Coag (PPP) [Time] 11.[address] [facility] CBC AUTO DIFFon 08-08-2022 BASO # 0.0 103/ul Normal 0.0-0.1 [facility] Comment on above: Performed By: #### C BC #### [facility] [address] [address] [address] Enrique Parkinson Basophils/100 WBC (Bld) 0.6 % Normal 0.2-2.0 [facility] Comment on above: Performed By: #### C BC #### [facility] [address] [address] [address] Enrique Parkinson EO # 0.1 103/ul Normal 0.0-0.7 [facility] Comment on above: Performed By: #### C BC #### [facility] [address] [place] [address] Dr. Enrique Parkinson Eosinophils/100 WBC (Bld) 0.9 % Normal 0.9-7.0 [facility] Comment on above: Performed By: #### C BC #### [facility] [address] [place] [address] Dr. Enrique Parkinson Erythrocyte distribution width (RBC) [Ratio] 12.9 % Normal 11.0-15.0 [facility] Comment on above: Performed By: #### C BC #### [facility] [address] [place] [address] Dr. Enrique Parkinson Hematocrit (Bld) [Volume fraction] 41.5 % Normal 36.0-48.0 [facility] Comment on above: Performed By: #### C BC #### [facility] [address] [place] [address] Dr. Enrique Parkinson Hemoglobin (Bld) [Mass/Vol] 14.3 g/dL Normal 12.0-16.0 [facility] Comment on above: Performed By: #### C BC #### [facility] [address] [place] [address] Dr. Enrique Parkinson IG # 0.02 10e3/ul Normal 0.00-0.03 [facility] Comment on above: Performed By: #### C BC #### [facility] [address] [place] [address] Dr. Enrique Parkinson IG % 0.3 % Normal 0.0-0.5 [facility] Comment on above: Performed By: #### C BC #### [facility] [address] [place] [address] Dr. Enrique Parkinson LYMPH # 1.8 103/ul Normal 1.2-3.8 [facility] Comment on above: Performed By: #### C BC #### [facility] [address] [place] [address] Dr. Enrique Parkinson Lymphocytes/100 WBC (Bld) 25.9 % Normal 20.5-60.0 [facility] Comment on above: Performed By: #### C BC #### [facility] [address] [place] [address] Dr. Enrique Parkinson MANUAL DIFF REQ NO Normal [facility] Comment on above: Performed By: #### C BC #### [facility] [address] [place] [address] Dr. Enrique Parkinson MCH (RBC) [Entitic mass] 30.2 pg Normal 26.7-34.0 [facility] Comment on above: Performed By: #### C BC #### [facility] [address] [place] [address] Dr. Enrique Parkinson MCHC (RBC) [Mass/Vol] 34.5 g/dL Normal 29.9-35.2 [facility] Comment on above: Performed By: #### C BC #### [facility] [address] [place] [address] Dr. Enrique Parkinson MCV (RBC) [Entitic vol] 87.6 fL Normal 81.0-99.0 [facility] Comment on above: Performed By: #### C BC #### [facility] [address] [place] [address] Dr. Enrique Parkinson MONO # 0.4 103/ul Normal 0.3-0.8 [facility] Comment on above: Performed By: #### C BC #### [facility] [address] [place] [address] Dr. Enrique Parkinson Monocytes/100 WBC (Bld) 5.1 % Normal 1.7-12.0 [facility] Comment on above: Performed By: #### C BC #### [facility] [address] [place] [address] Dr. Enrique Parkinson NEUT # 4.6 103/ul Normal 1.4-6.5 [facility] Comment on above: Performed By: #### C BC #### [facility] [address] [place] [address] Dr. Enrique Parkinson Neutrophils/100 WBC (Bld) 67.2 % Normal 43.0-75.0 [facility] Comment on above: Performed By: #### C BC #### [facility] [address] [place] [address] Dr. Enrique Parkinson Platelet mean volume (Bld) [Entitic vol] 9.2 fL Critically low 9.5-13.5 [facility] Comment on above: Performed By: #### C BC #### [facility] [address] [place] [address] Dr. Enrique Parkinson PLT 246 103/ul Normal 150-450 [facility] Comment on above: Performed By: #### C BC #### [facility] [address] [place] [address] Dr. Enrique Parkinson RBC 4.74 106/ul Normal 4.20-5.40 [facility] Comment on above: Performed By: #### C BC #### [facility] [address] [place] [address] Dr. Enrique Parkinson WBC 6.9 103/ul Normal 4.0-11.0 [facility] Comment on above: Performed By: #### C BC #### [facility] [address] [place] [address] Dr. Enrique Parkinson FREE T3on 08-08-2022 FREE T3 2.43 pg/mlL Normal 2.18-3.98 [facility] Comment on above: Performed By: #### T 4, TSH, LIPID, CMP, FT3 #### [facility] [address] [place] [address] Dr. Enrique Parkinson GLYCOHEMOGLOBIN A1Con 2022 ADA RECOMMENDATION SEE BELOW Normal [facility] Comment on above: Result Comment: ADA RECOMMENDED LIMIT 4.0 - 6.0 ADA THERAPEUTIC TARGET < 7.0 ACTION SUGGESTED > 7.0 Performed By: #### A 1C #### [facility] [address] [address] [address] Enrique Parkinson Glucose [Mass/Vol] 114 mg/dL Normal [facility] Comment on above: Performed By: #### A 1C #### [facility] [address] [place] [address] Dr. Enrique Parkinson HbA1c (Bld) [Mass fraction] 5.6 % Normal 4.5-6.2 [facility] Comment on above: Performed By: #### A 1C #### [facility] [address] [place] [address] Dr. Enrique Parkinson LIPID PROFILEon 08-08-2022 CHOL-HDL RATIO NORM SEE BELOW Normal [facility] Comment on above: Result Comment: 3.3 - 4.4 LOW RISK 4.4 - 7.1 AVERAGE RISK 7.1 - 11.0 MODERATE RISK >11.0 HIGH RISK Performed By: #### T 4, TSH, LIPID, CMP, FT3 #### [facility] [address] [place] [address] Dr. Enrique Parkinson Cholesterol [Mass/Vol] 241 mg/dL Critically high <=200 [facility] Comment on above: Performed By: #### T 4, TSH, LIPID, CMP, FT3 #### [facility] [address] [place] [address] Dr. Enrique Parkinson Cholesterol in HDL [Mass/Vol] 45 mg/dL Normal 40-60 [facility] Comment on above: Performed By: #### T 4, TSH, LIPID, CMP, FT3 #### [facility] [address] [place] [address] Dr. Enrique Parkinson Cholesterol in LDL [Mass/Vol] 131.2 mg/dL Normal [facility] Comment on above: Performed By: #### T 4, TSH, LIPID, CMP, FT3 #### [facility] [address] [place] [address] Dr. Enrique Parkinson Cholesterol.total/Ch olesterol in HDL [Mass ratio] 5.4 {ratio} Normal [facility] Comment on above: Performed By: #### T 4, TSH, LIPID, CMP, FT3 #### [facility] [address] [address] [address] Enrique Parkinson HDL NORMAL > or = 60 mg/dl - LO W CARDIOVASCULAR RISK <40 mg/dl - HIGH CARDIOVASCULAR RISK Normal [facility] Comment on above: Performed By: #### T 4, TSH, LIPID, CMP, FT3 #### [facility] [address] [address] [address] Enrique Parkinson LDL CALC NORMAL SEE BELOW Normal [facility] Comment on above: Result Comment: <100 mg/dl OPTIMAL 100 - 129 mg/dl NEAR OR ABOVE OPTIMAL 130 - 159 mg/dl BORDERLINE HIGH 160 - 189 mg/dl HIGH >190 mg/dl VERY HIGH Performed By: #### T 4, TSH, LIPID, CMP, FT3 #### [facility] [address] [address] [address] Enrique Parkinson Triglyceride [Mass/Vol] 324 mg/dL Critically high <=150 [facility] Comment on above: Performed By: #### T 4, TSH, LIPID, CMP, FT3 #### [facility] [address] [address] [address] Enrique Parkinson VLDL CALC 64.8 mg/dL Normal [facility] Comment on above: Performed By: #### T 4, TSH, LIPID, CMP, FT3 #### [facility] [address] [address] [address] Enrique Parkinson PROF 14(COMP METB)on 023 Albumin [Mass/Vol] 4.1 g/dL Normal 3.4-5.0 [facility] Comment on above: Performed By: #### T 4, TSH, LIPID, CMP, FT3 #### [facility] [address] [address] [address] Enrique Parkinson Albumin/Globulin [Mass ratio] 1.1 {ratio} Normal [facility] Comment on above: Performed By: #### T 4, TSH, LIPID, CMP, FT3 #### [facility] [address] [address] [address] Enrique Parkinson ALP [Catalytic activity/Vol] 83 U/L Normal 46-116 [facility] Comment on above: Performed By: #### T 4, TSH, LIPID, CMP, FT3 #### [facility] [address] [place] [address] Dr. Enrique Parkinson ALT [Catalytic activity/Vol] 28 U/L Normal 14-59 [facility] Comment on above: Performed By: #### T 4, TSH, LIPID, CMP, FT3 #### [facility] [address] [place] [address] Dr. Enrique Parkinson Anion gap [Moles/Vol] 12.3 mmol/L Normal [facility] Comment on above: Performed By: #### T 4, TSH, LIPID, CMP, FT3 #### [facility] [address] [place] [address] Dr. Enrique Parkinson AST [Catalytic activity/Vol] 20 U/L Normal 15-37 [facility] Comment on above: Performed By: #### T 4, TSH, LIPID, CMP, FT3 #### [facility] [address] [place] [address] Dr. Enrique Parkinson Bilirubin [Mass/Vol] 0.4 mg/dL Normal 0.2-1.0 [facility] Comment on above: Performed By: #### T 4, TSH, LIPID, CMP, FT3 #### [facility] [address] [place] [address] Dr. Enrique Parkinson Calcium [Mass/Vol] 9.2 mg/dL Normal 8.5-10.1 [facility] Comment on above: Performed By: #### T 4, TSH, LIPID, CMP, FT3 #### [facility] [address] [place] [address] Dr. Enrique Parkinson Chloride [Moles/Vol] 101 mmol/L Normal 98-107 [facility] Comment on above: Performed By: #### T 4, TSH, LIPID, CMP, FT3 #### [facility] [address] [place] [address] Dr. Enrique Parkinson CO2 [Moles/Vol] 29.4 mmol/L Normal 21.0-32.0 [facility] Comment on above: Performed By: #### T 4, TSH, LIPID, CMP, FT3 #### [facility] [address] [place] [address] Dr. Enrique Parkinson Creatinine [Mass/Vol] 0.80 mg/dL Normal 0.55-1.02 [facility] Comment on above: Performed By: #### T 4, TSH, LIPID, CMP, FT3 #### [facility] [address] [place] [address] Dr. Enrique Parkinson EGFR-AF SLOVAK >60 Normal >=60 [facility] Comment on above: Performed By: #### T 4, TSH, LIPID, CMP, FT3 #### [facility] [address] [place] [address] Dr. Enrique Parkinson EGFR-NON AF SLOVAK >60 Normal >=60 [facility] Comment on above: Performed By: #### T 4, TSH, LIPID, CMP, FT3 #### [facility] [address] [place] [address] Dr. Enrique Parkinson Globulin (S) [Mass/Vol] 3.8 g/dL Normal [facility] Comment on above: Performed By: #### T 4, TSH, LIPID, CMP, FT3 #### [facility] [address] [place] [address] Dr. Enrique Parkinson Glucose [Mass/Vol] 111 mg/dL Critically high 74-106 [facility] Comment on above: Performed By: #### T 4, TSH, LIPID, CMP, FT3 #### [facility] [address] [place] [address] Dr. Enrique Parkinson Potassium [Moles/Vol] 3.7 mmol/L Normal 3.5-5.1 [facility] Comment on above: Performed By: #### T 4, TSH, LIPID, CMP, FT3 #### [facility] [address] [place] [address] Dr. Enrique Parkinson Protein [Mass/Vol] 7.9 g/dL Normal 6.4-8.2 [facility] Comment on above: Performed By: #### T 4, TSH, LIPID, CMP, FT3 #### [facility] [address] [address] [address] Enrique Parkinson Sodium [Moles/Vol] 139 mmol/L Normal 136-145 [facility] Comment on above: Performed By: #### T 4, TSH, LIPID, CMP, FT3 #### [facility] [address] [place] [address] Dr. Enrique Parkinson Urea nitrogen [Mass/Vol] 15.0 mg/dL Normal 7.0-18.0 [facility] Comment on above: Performed By: #### T 4, TSH, LIPID, CMP, FT3 #### [facility] [address] [place] [address] Dr. Enrique Parkinson Urea nitrogen/Creatinine [Mass ratio] 18.8 mg/mg Normal [facility] Comment on above: Performed By: #### T 4, TSH, LIPID, CMP, FT3 #### [facility] [address] [place] [address] Dr. Enrique Parkinson T4on 08-08-2022 T4 [Mass/Vol] 10.30 ug/dL Normal 4.80-13.90 [facility] Comment on above: Performed By: #### T 4, TSH, LIPID, CMP, FT3 #### [facility] [address] [place] [address] Dr. Enrique Parkinson TSHon 08-08-2022 TSH 0.847 uIU/mL Normal 0.358-3.740 [facility] Comment on above: Performed By: #### T 4, TSH, LIPID, CMP, FT3 #### [facility] [address] [place] [address] Dr. Enrique Parkinson VITAMIN D 25 OHon 08-08-2022 VIT D 25-OH 35.8 ng/mL Normal [facility] Comment on above: Performed By: #### V ITAD #### [facility] [address] [place] [address] Dr. Enrique Parkinson VIT D RANGES SEE BELOW Normal [facility] Comment on above: Result Comment: <20 ng/mL Vit D deficient 20 - <30 ng/mL Vit D insufficient 30 - 100 ng/mL Vit D sufficient >100 ng/mL Potential Toxicity Performed By: #### V ITAD #### [facility] [address] [place] [address] [address] Enrique Parkinson Covid-19 PCR ([facility])on 12-15 SARS-CoV-2 (COVID-19) RNA RENATO+probe Ql (Unsp spec) Not detected Normal NOT DETECTED [facility] Comment on above: Result Comment: This test is not yet approved or cleared by the [place] FDA. When there are no FDA-approved or cleared tests available, and other criteria are met, FDA can make tests available under an emergency access mechanism called an Emergency Use Authorization (EUA). The EUA for this test is supported by the [employer] Operator of Health and Human Service's (HHS's) declaration [...] SARS-CoV-2. Performed By: #### C VDTB #### [facility] [address] [place] [address] Enrique Parkinson SYMPTOMATIC COVID-19 ANTIGEN on 01-04-2022 EUA Statement SEE BELOW Normal [facility] Comment on above: Result Comment: This [...] sooner. Performed By: #### C VDAGS #### [facility] [address] [place] [address] Dr. Enrique Parkinson SARS-CoV-2 (COVID-19) RNA RENATO+probe Ql (Unsp spec) Negative Normal NEGATIVE [facility] Comment on above: Performed By: #### C VDAGS #### [facility] [address] [place] [address] Dr. Enrique Parkinson PAP ACOG PANEL 2: 30 to 65on 11-19-2021 . . Normal [facility] Comment on above: Result Comment: Perf ormed at: WB Performed By: #### C VDAGS #### [facility] [address] [place] [address] Dr. Enrique Parkinson Age Gdln ACOG Testing 30-65 Normal [facility] Comment on above: Performed By: #### C VDAGS #### [facility] [address] [place] [address] Dr. Enrique Parkinson DIAGNOSIS: Comment Normal [facility] Comment on above: Result Comment: NEGA TIVE FOR INTRAEPITHELIAL LESION OR MALIGNANCY. Performed at: WB Performed By: #### C VDAGS #### [facility] [address] [place] [address] Dr. Enrique Parkinson HPV Aptima Negative Normal Negative [facility] Comment on above: Result Comment: This nucleic acid amplification test detects fourteen high-risk HPV types (16,18,31,33,35,39,45,51,52,56,58,59,66,68) without differentiation. Performed at: =G Performed By: #### C VDAGS #### [facility] [address] [place], [place] [id number] Dr. Enrique Parkinson Methodology: Comment Normal [facility] Comment on above: Result Comment: This liquid based ThinPrep(R) pap test was screened with the use of an image guided system. Performed at: WB Performed By: #### C VDAGS #### [facility] [address] [place] [address] Dr. Enrique Parkinson Note: Comment Normal [facility] Comment on above: Result Comment: The [...] WB Performed By: #### C VDAGS #### [facility] [address] [address] [address] Enrique Parkinson Performed by: Comment Normal [facility] Comment on above: Result Comment: Hipolito Rosenberg, [employer] (ASCP) Performed at: WB Performed By: #### C VDAGS #### [facility] [address] [place] [address] Dr. Enrique Parkinson Specimen adequacy: Comment Normal [facility] Comment on above: Result Comment: Sati sfactory for evaluation. Endocervical and/or squamous metaplastic cells (endocervical component) are present. Performed at: WB Performed By: #### C VDAGS #### [facility] [address] [place] [address] Dr. Enrique Parkinson Vital Signs Date Time Vital Sign Value Performing Clinician Facility 08-07-2023 10:27-0500 Diastolic blood pressure 94 mm[Hg] [place] Dennison DO Work Phone: [facility] 08-07-2023 10:27-0500 Heart rate 77 /min [place] Dennison DO Work Phone: [facility] 08-07-2023 10:27-0500 SaO2% (BldA) [Mass fraction] 98 % [place] Dennison DO Work Phone: [facility] 08-07-2023 10:27-0500 Systolic blood pressure 140 mm[Hg] [place] Dennison DO Work Phone: [facility] 08-07-2023 08:01-0500 Body height 167.6 cm [place] Dennison DO Work Phone: [facility] 08-07-2023 08:01-0500 Body mass index (BMI) [Ratio] 29.05 kg/m2 [place] Dennison DO Work Phone: [facility] 08-07-2023 08:01-0500 Body temperature 98.1 [degF] [place] Dennison DO Work Phone: [facility] 08-07-2023 08:01-0500 Body weight 81.65 kg [place] Dennison DO Work Phone: [facility] 08-07-2023 08:01-0500 Respiratory rate 16 /min [place] Dennison DO Work Phone: [facility] 12-14-2022 14:45-0400 Body height 167.64 cm Mirta Chacko Other [facility] 12-14-2022 14:45-0400 Body mass index (BMI) [Ratio] 30.18 kg/m2 Mirta Chacko Other [facility] 12-14-2022 14:45-0400 Body temperature 97.8 [degF] Mirta Chacko Other [facility] Other 12-14-2022 14:45-0400 Body weight 84.82 kg Mirta Chacko Other [facility] Other 12-14-2022 14:45-0400 Respiratory rate 18 /min Mirta Chacko Other [facility] Other 12-14-2022 14:45-0400 SaO2% (BldA) [Mass fraction] 98 % Mirta Chacko Other [facility] Other Encounters Encounter Date Encounter Type Care Provider Facility Start: 08-07-2023 End: 08-07-2023 Emergency department patient visit RAKESH LUNDBERG [facility] Start: 08-07-2023 End: 08-07-2023 Emergency department patient visit Raj Webber Miracle DO Work Phone: [facility] Comment on above: Fall, initial encoun ter (Primary Dx); Closed head injury, initial encounter Start: 12-14-2022 End: 12-14-2022 ambulatory Mirta Chacko Other [facility] Other Start: 12-14-2022 Office outpatient ne w 30 minutes Mirta Chacko [facility] Start: 08-09-2022 Encounter for genera l adult medical examination without abnormal findings DR RAKESH LUNDBERG [facility] Start: 08-08-2022 End: 08-09-[address] [...] 03-16-2023 Influenza vaccination Influenza Vacc ine (#1) [facility] Start: 05-24-2021 COVID-19 Vaccine (3 - Pfizer series) COVID-19 Vaccine (3 - Pfizer series) [facility] Start: 2017 Zoster Vaccines (1 of 2) Zoste r Vaccines (1 of 2) [facility] Start: 2007 Screening for malign ant neoplasm of breast Mammogram [facility] Start: 1989 DTaP/Tdap/Td Vaccine s (1 - Tdap) DTaP/Tdap/Td Vaccines (1 - Tdap) [facility] Start: 01-06-1988 Screening for malign ant neoplasm of cervix [facility] Start: 1985 Diabetes mellitus screening Diabetes Screening [facility] Start: 1985 Hepatitis C screening Hepatitis C Sc reening [facility] Start: 01-06-1968 MMR Vaccines (1 of 1 - Standard series) MMR Vaccines (1 of 1 - Standard series) [facility] Start: 1967 Hepatitis B Vaccines (1 of 3 - 3-dose series) Hepatitis B Vaccines (1 of 3 - 3-dose series) [facility] Start: 1967 HIV screening HIV Screening [facility] Start: 1967 Lipid panel Lipid Panel [facility] Start: 1967 Screening for malign ant neoplasm of colon [facility] Start: 1967 Yearly Adult Physical Yearly Adult P hysical [facility] ECG 12 lead ECG 12 lead ECG STAT 08/07/2023 8:[address] Service Area Work Phone: Payers Date Payer Category Payer Unknown [id number] 2020 Unknown [facility] [id number] 2020-Present Sada Trimble [id number] [place] [address] [id number] 1967 Unknown [id number] 1967 Unknown [id number] 1967 Unknown [id number] 1967 Unknown [id number] 1967 Unknown [id number] 1967 Unknown [id number] 1959 Self-pay [id number] 1959 Unknown [id number] Social History Date Type Detail Facility Unknown if ever smoked [facility] [employer] Other Sex Assigned At [employer] [facility] [employer] Other Tobacco smoking status [facility] Tobacco smoking consumption unknown [facility] Work Phone: Start: 1965 Sex Assigned At Not on file [facility] Work Phone: Start: 07-28-2023 End: 08-07-2023 Exposure to SARS-CoV-2 (event) Not sure [facility] Work Phone: Hospital Discharge instructions 08-07-2023 Discharge [...] needed for pain. documented in this encounter [facility] Work Phone: Evaluation note 12-14-2022 Note Date [...] resolved. Patient verbalized understanding of treatment plan [facility] Other Evaluation note Note Date & Type Note Facility Evaluation note Diagnosis Fall, initial encounter- Primary Closed head injury, initial encounter documented in this encounter [facility] Work Phone: History general Narrative - Reported Note Date & Type Note Facility History general Narrative - Reported Type Medical History high blood pressure Medical History thyroid disease Surgical History C section Surgical History lobectomy Surgical History wrist surgery Surgical History bowel surgery Hospitalization History see above [facility] Other Summary Purpose Family History No Family History Records FoundNo Family History Records FoundNo Family History Records Found Advance Directives No Advanced Directives Records FoundNo Advanced Directives Records FoundNo Advanced Directives Records Found Additional Source Comments INFORMATION SOURCE (unrecogn ized section and content) DATE CREATED AUTHOR 08/14/2022 [facility] DATE CREATED AUTHOR AUTHOR'S ORGANIZ ATION 08/31/2023 [facility] DATE CREATED AUTHOR AUTHOR'S ORGANIZ ATION 10/07/2023 [facility] REASON FOR VISIT (unrecogniz ed section and [...] Care Teams (unrecognized sec tion and content) Ham 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 [employer] provides no warranty or guarantee of the accuracy or completeness of information in this document.
== END 2024-02-13 14:17 | disposition home or self-care (01) ==
LOC: CT 14:17
PROVIDERS: PCP Family Medicine; Visit Provider Family Medicine
DX: U07.1 COVID-19 (principal); J20.9 Acute bronchitis, unspecified; R09.1 Pleurisy
CPT/HCPCS: 71275; Q9967

== ENCOUNTER 2024-02-18 09:53 | Outpatient (RCR) | payer BC, SELFPAY ==
[2024-02-18 10:05] VITALS: BP 111/72; PULSE 81; TEMP 37.2; O2SAT 98
[2024-02-18] MEDS: 0.9 % SODIUM CHLORIDE 1,000 ML 1000 ML IV (10:20)
--- NOTE | 2024-02-18 10:27 | PC.NURSE ---
1005: Pt. to [facility] amb. for IVF. Seated in recliner. VSS. Allergies verified. IV initiated to right AC without difficulty, see documentation. Pt. tolerated without c/o. IV 0.9%NS initiated at this time. Pt. given warm blankets, drinking water.
--- NOTE | 2024-02-18 10:54 | PC.NURSE ---
Pt. without c/o or needs. IV site clear, ivf maintained.
--- NOTE | 2024-02-18 11:50 | PC.NURSE ---
1120: IVF infused without adverse reaction. IV d/c'd, pressure to site. Pt. d/c'd amb. to home.
== END 2024-03-15 23:59 | disposition home or self-care (01) ==
LOC: INF 09:53
PROVIDERS: PCP Family Medicine; Visit Provider Family Medicine
DX: E86.0 Dehydration (principal)
CPT/HCPCS: 96360

== ENCOUNTER 2024-03-05 06:02 | Outpatient (OUT) | payer BC, SELFPAY ==
--- OUTSIDE RECORDS SUMMARY | 2024-03-05 06:04 | XMS_ITS | CCD ---
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 Name Role Phone DR RAKESH LNUDBERG Primary Care Unavailable DAVIE, DR NOBLE Admitting [...] Codeine; Translations: [CODEINE] Drug Allergy 4 [facility] Repository (1 source) diphenhydrAMINE Drug Allergy 6 [facility] Repository (1 source) Erythromycin Drug Allergy 4 [facility] Repository (1 source) Penicillins Drug allergy (disorder) 4 [facility] Repository (1 source) Penicillin Drug Allergy rash [employer] Other (2 sources) Amoxicillin; Translations: [AMOXICILLIN] Drug Allergy 3 [facility] (1 source) Codeine Drug Allergy 4 Anxiety [facility] Work Phone: Medications Current Medications Medication Drug [...] Basophils (Bld) [#/Vol] 0.03 x10*3/uL Normal 0.00-0.10 [facility] Comment on above: Performed By: #### 5 7021-8 #### MIK FREITAS ([id number]) [facility] ([facility]) [address] [place] [address] Basophils/100 WBC (Bld) 0.4 % Normal 0.0-2.0 [facility] Comment on above: Performed By: #### 5 7021-8 #### MIK FREITAS ([id number]) [facility] ([facility]) [address] [place] [address] Eosinophils (Bld) [#/Vol] 0.06 x10*3/uL Normal 0.00-0.70 [facility] Comment on above: Performed By: #### 7021-8 #### MIK FREITAS ([id number]) [facility] ([facility]) [address] [place] [address] Eosinophils/100 WBC (Bld) 0.9 % Normal 0.0-6.0 [facility] Comment on above: Performed By: #### 7021-8 #### MIK FREITAS ([id number]) [facility] ([facility]) [address] [place] [address] Erythrocyte distribution width (RBC) [Ratio] 13.2 % Normal 11.5-14.5 [facility] Comment on above: Performed By: #### 7021-8 #### MIK FREITAS ([id number]) [facility] ([facility]) [address] [place] [address] Hematocrit (Bld) [Volume fraction] 41.6 % Normal 36.0-46.0 [facility] Comment on above: Performed By: #### 7021-8 #### MIK FREITAS ([id number]) [facility] ([facility]) [address] [place] [address] Hemoglobin (Bld) [Mass/Vol] 13.8 g/dL Normal 12.0-16.0 [facility] Comment on above: Performed By: #### 7021-8 #### MIK FREITAS ([id number]) [facility] ([facility]) [address] [place] [address] Immature granulocytes (Bld) [#/Vol] 0.07 x10*3/uL Normal 0.00-0.70 [facility] Comment on above: Performed By: #### 7021-8 #### MIK FREITAS ([id number]) [facility] ([facility]) [address] [place] [address] Immature granulocytes/100 WBC (Bld) 1.0 % High 0.0-0.9 [facility] Comment on above: Result Comment: Azul ture Granulocyte Count (IG) includes promyelocytes, myelocytes and metamyelocytes but does not include bands. Percent differential counts (%) should be interpreted in the context of the absolute cell counts (cells/UL). Performed By: #### 5 7021-8 #### MIK FREITAS ([id number]) [facility] ([facility]) [address] [place] [address] Lymphocytes (Bld) [#/Vol] 2.17 x10*3/uL Normal 1.20-4.80 [facility] Comment on above: Performed By: #### 5 7021-8 #### MIK FREITAS ([id number]) [facility] ([facility]) [address] [place] [address] Lymphocytes/100 WBC (Bld) 32.1 % Normal 13.0-44.0 [facility] Comment on above: Performed By: #### 5 7021-8 #### MIK FREITAS ([id number]) [facility] ([facility]) [address] [place] [address] MCH (RBC) [Entitic mass] 29.6 pg Normal 26.0-34.0 [facility] Comment on above: Performed By: #### 5 7021-8 #### MIK FREITAS ([id number]) [facility] ([facility]) [address] [place] [address] MCHC (RBC) [Mass/Vol] 33.2 g/dL Normal 32.0-36.0 [facility] Comment on above: Performed By: #### 5 7021-8 #### MIK FREITAS ([id number]) [facility] ([facility]) [address] [place] [address] MCV (RBC) [Entitic vol] 89 fL Normal 80-100 [facility] Comment on above: Performed By: #### 5 7021-8 #### MIK FREITAS ([id number]) [facility] ([facility]) [address] [place] [address] Monocytes (Bld) [#/Vol] 0.32 x10*3/uL Normal 0.10-1.00 [facility] Comment on above: Performed By: #### 5 7021-8 #### MIK FREITAS ([id number]) [facility] ([facility]) [address] [place] [address] Monocytes/100 WBC (Bld) 4.7 % Normal 2.0-10.0 [facility] Comment on above: Performed By: #### 5 7021-8 #### MIK FREITAS ([id number]) [facility] ([facility]) [address] [place] [address] Neutrophils (Bld) [#/Vol] 4.12 x10*3/uL Normal 1.20-7.70 [facility] Comment on above: Result Comment: Perc ent differential counts (%) should be interpreted in the context of the absolute cell counts (cells/uL). Performed By: #### 5 7021-8 #### MIK FREITAS ([id number]) [facility] ([facility]) [address] [place] [address] Neutrophils/100 WBC (Bld) 60.9 % Normal 40.0-80.0 [facility] Comment on above: Performed By: #### 5 7021-8 #### MIK FREITAS ([id number]) [facility] ([facility]) [address] [place] [address] Nucleated RBC/100 WBC (Bld) [Ratio] 0.0 /100 WBCs Normal 0.0-0.0 [facility] Comment on above: Performed By: #### 5 7021-8 #### MIK FREITAS ([id number]) [facility] ([facility]) [address] [place] [address] Platelets (Bld) [#/Vol] 234 x10*3/uL Normal 150-450 [facility] Comment on above: Performed By: #### 5 7021-8 #### MIK FREITAS ([id number]) [facility] ([facility]) [address] [place] [address] RBC (Bld) [#/Vol] 4.66 x10*6/uL Normal 4.00-5.20 [facility] Comment on above: Performed By: #### 5 7021-8 #### MIK FREITAS ([id number]) [facility] ([facility]) [address] [place] [address] WBC (Bld) [#/Vol] 6.8 x10*3/uL Normal 4.4-11.3 [facility] Comment on above: Performed By: #### 5 7021-8 #### MIK FREITAS ([id number]) [facility] ([facility]) [address] [place] [address] Basophils (Bld) [#/Vol] 0.03 10*3/uL [facility] Basophils/100 WBC (Bld) 0.4 % 0.0 - 2.0 % [facility] Eosinophils (Bld) [#/Vol] 0.06 10*3/uL [facility] Eosinophils/100 WBC (Bld) 0.9 % 0.0 - 6.0 % [facility] Erythrocyte distribution width (RBC) [Ratio] 13.2 % 11.5 - 14.5 % [facility] Hematocrit (Bld) [Volume fraction] 41.6 % 36.0 - 46.0 % [facility] Hemoglobin (Bld) [Mass/Vol] 13.8 g/dL 12.0 - 16.0 g/dL [facility] Immature granulocytes (Bld) [#/Vol] 0.07 10*3/uL [facility] Immature granulocytes/100 WBC (Bld) 1.0 % High 0.0 - 0.9 % [facility] Comment on above: Immature Granulocyte Count (IG) includes promyelocytes, myelocytes and metamyelocytes but does not include bands. Percent differential counts (%) should be interpreted in the context of the absolute cell counts (cells/UL). Interpretation and review of laboratory results Abnormal [facility] Lymphocytes (Bld) [#/Vol] 2.17 10*3/uL [facility] Lymphocytes/100 WBC (Bld) 32.1 % 13.0 - 44.0 % [facility] MCH (RBC) [Entitic mass] 29.6 pg 26.0 - 34.0 pg [facility] MCHC (RBC) [Mass/Vol] 33.2 g/dL 32.0 - 36.0 g/dL [facility] MCV (RBC) [Entitic vol] 89 fL 80 - 100 fL [facility] Monocytes (Bld) [#/Vol] 0.32 10*3/uL [facility] Monocytes/100 WBC (Bld) 4.7 % 2.0 - 10.0 % [facility] Neutrophils (Bld) [#/Vol] 4.12 10*3/uL [facility] Comment on above: Percent differential counts (%) should be interpreted in the context of the absolute cell counts (cells/uL). Neutrophils/100 WBC (Bld) 60.9 % 40.0 - 80.0 % [facility] Nucleated RBC/100 WBC (Bld) [Ratio] 0.0 % [facility] Platelets (Bld) [#/Vol] 234 10*3/uL [facility] RBC (Bld) [#/Vol] 4.66 10*6/uL [facility] WBC (Bld) [#/Vol] 6.8 10*3/uL [facility] CT CERVICAL SPINE WO IV CONT Phoebe 08-07-2023 CT CERVICAL SPINE WO IV CONTRAST Interpreted By: Willy Anderson, STUDY: CT CERVICAL SPINE WO IV CONTRAST; 08/07/2023 9:01 am INDICATION: Signs/Symptoms:Mechan ical fall, no thinners, positive LOC. COMPARISON: None. ACCESSION NUMBER(S): [id number] ORDERING CLINICIAN: DIMPLE MADRID TECHNIQUE: Axial CT [...] Willy Anderson 08/07/2023 9:41 AM Dictation workstation: [id number] [facility] CT Cervical spine WO contras ton 08-07-2023 No evidence for an acute fracture or subluxation of the cervical spine. MACRO: None Signed by: Willy Anderson 08/07/2023 9:41 AM Dictation workstation: [id number] Interpreted By: Willy Anderson, STUDY: CT CERVICAL SPINE WO IV CONTRAST; 08/07/2023 9:01 am INDICATION: Signs/Symptoms:Mechan ical fall, no thinners, positive LOC. COMPARISON: None. ACCESSION NUMBER(S): [id number] ORDERING CLINICIAN: DIMPLE MADRID TECHNIQUE: Axial CT [...] thinners, positive LOC. COMPARISON: None. ACCESSION NUMBER(S): [id number] ORDERING CLINICIAN: DIMPLE MADRID TECHNIQUE: Axial CT [...] Willy Anderson 08/07/2023 9:41 AM Dictation workstation: [id number] [facility] Work Phone: [facility] Work Phone: CT HEAD WO IV CONTRASTon CT HEAD WO IV CONTRAST Interpreted By: Willy Anderson, STUDY: CT HEAD WO IV CONTRAST; 08/07/2023 9:01 am INDICATION: Signs/Symptoms:Mechan ical fall, no thinners, positive LOC. COMPARISON: None. ACCESSION NUMBER(S): [id number] ORDERING CLINICIAN: DIMPLE MADRID TECHNIQUE: Noncontrast axial [...] Willy Anderson 08/07/2023 9:38 AM Dictation workstation: [id number] [facility] CT Head WO contraston 2023 No acute intracrania l hemorrhage, mass effect, or calvarial fracture. MACRO: None Signed by: Willy Anderson 08/07/2023 9:38 AM Dictation workstation: [id number] MMOD[facility] Interpreted By: Willy Anderson, STUDY: CT HEAD WO IV CONTRAST; 08/07/2023 9:01 am INDICATION: Signs/Symptoms:Mechan ical fall, no thinners, positive LOC. COMPARISON: None. ACCESSION NUMBER(S): [id number] ORDERING CLINICIAN: DIMPLE MADRID TECHNIQUE: Noncontrast axial [...] thinners, positive LOC. COMPARISON: None. ACCESSION NUMBER(S): [id number] ORDERING CLINICIAN: DIMPLE MADRID TECHNIQUE: Noncontrast axial [...] Willy Anderson 08/07/2023 9:38 AM Dictation workstation: [id number] [facility] Work Phone: CT Head WO contrastOrdered B y: Willy Anderson on 08-07-2023 [facility] Work Phone: CT THORACIC SPINE WO IV CONT RASTon 08-07-2023 CT THORACIC SPINE WO IV CONTRAST Interpreted By: Willy Anderson, STUDY: CT THORACIC SPINE WO IV CONTRAST; 08/07/2023 9:01 am INDICATION: Signs/Symptoms:Mechan ical fall, no thinners, positive LOC, thoracic spinal tenderness. COMPARISON: None. ACCESSION NUMBER(S): [id number] ORDERING CLINICIAN: DIMPLE MADRID TECHNIQUE: Axial CT [...] Willy Anderson 08/07/2023 9:48 AM Dictation workstation: [id number] [facility] CT Thoracic spine WO contras ton 08-07-2023 No acute osseous abnormality of the thoracic spine. Mild chronic appearing anterior wedging of a few scattered thoracic vertebral bodies as above. MACRO: None Signed by: Willy Anderson 08/07/2023 9:48 AM Dictation workstation: [id number] [facility] Interpreted By: Willy Anderson, STUDY: CT THORACIC SPINE WO IV CONTRAST; 08/07/2023 9:01 am INDICATION: Signs/Symptoms:Mechan ical fall, no thinners, positive LOC, thoracic spinal tenderness. COMPARISON: None. ACCESSION NUMBER(S): [id number] ORDERING CLINICIAN: DIMPLE MADRID TECHNIQUE: Axial CT [...] thoracic spinal tenderness. COMPARISON: None. ACCESSION NUMBER(S): [id number] ORDERING CLINICIAN: DIMPLE MADRID TECHNIQUE: Axial CT [...] Willy Anderson 08/07/2023 9:48 AM Dictation workstation: [id number] [facility] Work Phone: [facility] Work Phone: Coagulation tissue factor in ducedon 08-07-2023 PT Coag (PPP) [Time] 11.1 s Normal 9.8-12.8 [facility] Comment on above: Performed By: #### 5 902-2 #### MIK FREITAS ([id number]) [facility] ([facility]) [address] [place] [address] Comprehensive metabolic 2000 panelon 08-07-2023 Albumin BCP dye [Mass/Vol] 4.7 g/dL Normal 3.4-5.0 [facility] Comment on above: Performed By: #### 2 4323-8 #### MIK FREITAS ([id number]) [facility] ([facility]) [address] [place] [address] ALP [Catalytic activity/Vol] 61 U/L Normal 33-110 [facility] Comment on above: Performed By: #### 2 4323-8 #### MIK FREITAS ([id number]) [facility] ([facility]) [address] [place] [address] ALT With P-5'-P [Catalytic activity/Vol] 27 U/L Normal 7-45 [facility] Comment on above: Result Comment: [place] ents treated with Sulfasalazine may generate falsely decreased results for ALT. Performed By: #### 2 4323-8 #### MIK FREITAS ([id number]) [facility] ([facility]) [address] [place] [address] Anion gap [Moles/Vol] 11 mmol/L Normal 10-20 [facility] Comment on above: Performed By: #### 2 4323-8 #### MIK FREITAS ([id number]) [facility] ([facility]) [address] [place] [address] AST With P-5'-P [Catalytic activity/Vol] 23 U/L Normal 9-39 [facility] Comment on above: Performed By: #### 2 4323-8 #### MIK FREITAS ([id number]) [facility] ([facility]) [address] [place] [address] Bilirubin [Mass/Vol] 0.5 mg/dL Normal 0.0-1.2 [facility] Comment on above: Performed By: #### 2 4323-8 #### MIK FREITAS ([id number]) [facility] ([facility]) [address] [place] [address] Calcium [Mass/Vol] 9.4 mg/dL Normal 8.6-10.3 [facility] Comment on above: Performed By: #### 2 4323-8 #### MIK FREITAS ([id number]) [facility] ([facility]) [address] [place] [address] Chloride [Moles/Vol] 101 mmol/L Normal 98-107 [facility] Comment on above: Performed By: #### 2 4323-8 #### MIK FREITAS ([id number]) [facility] ([facility]) [address] [place] [address] CO2 [Moles/Vol] 28 mmol/L Normal 21-32 [facility] Comment on above: Performed By: #### 2 4323-8 #### MIK FREITAS ([id number]) [facility] ([facility]) [address] [place] [address] Creatinine [Mass/Vol] 0.75 mg/dL Normal 0.50-1.05 [facility] Comment on above: Performed By: #### 2 4323-8 #### MIK FREITAS ([id number]) [facility] ([facility]) [address] [place] [address] GFR/1.73 sq M.predicted MDRD (S/P/Bld) [Vol rate/Area] mL/min/{1.73_m2} Normal >60 [facility] Comment on above: Result Comment: Calc ulations of estimated GFR are performed using the 2020 CKD-EPI Study Refit equation without the race variable for the IDMS-Traceable creatinine methods. https://jasn.asnjournals.org/content/early//ASN.3487405 988 Performed By: #### 2 4323-8 #### MIK FREITAS ([id number]) [facility] ([facility]) [address] [place] [address] Glucose [Mass/Vol] 108 mg/dL High 74-99 [facility] Comment on above: Performed By: #### 2 4323-8 #### MIK FREITAS ([id number]) [facility] ([facility]) [address] [place] [address] Potassium [Moles/Vol] 3.8 mmol/L Normal 3.5-5.3 [facility] Comment on above: Performed By: #### 2 4323-8 #### MIK FREITAS ([id number]) [facility] ([facility]) [address] [place] [address] Protein [Mass/Vol] 7.8 g/dL Normal 6.4-8.2 [facility] Comment on above: Performed By: #### 2 4323-8 #### MIK FREITAS ([id number]) [facility] ([facility]) [address] [place] [address] Sodium [Moles/Vol] 136 mmol/L Normal 136-145 [facility] Comment on above: Performed By: #### 2 4323-8 #### MIK FREITAS ([id number]) [facility] ([facility]) [address] [place] [address] Urea nitrogen [Mass/Vol] 13 mg/dL Normal 6-23 [facility] Comment on above: Performed By: #### 2 4323-8 #### MIK FREITAS ([id number]) [facility] ([facility]) [address] [place] [address] Albumin BCP dye [Mass/Vol] 4.7 g/dL 3.4 - 5.0 g/dL [facility] ALP [Catalytic activity/Vol] 61 U/L 33 - 110 U/L [facility] ALT With P-5'-P [Catalytic activity/Vol] 27 U/L 7 - 45 U/L [facility] Comment on above: Patients treated wit h Sulfasalazine may generate falsely decreased results for ALT. Anion gap [Moles/Vol] 11 mmol/L 10 - 20 mmol/L [facility] AST With P-5'-P [Catalytic activity/Vol] 23 U/L 9 - 39 U/L [facility] Bilirubin [Mass/Vol] 0.5 mg/dL 0.0 - 1 .2 mg/dL [facility] Calcium [Mass/Vol] 9.4 mg/dL 8.6 - 10. 3 mg/dL [facility] Chloride [Moles/Vol] 101 mmol/L 98 - 10 7 mmol/L [facility] CO2 [Moles/Vol] 28 mmol/L 21 - 32 mmol/L [facility] Creatinine [Mass/Vol] 0.75 mg/dL 0.50 - 1.05 mg/dL [facility] eGFR - PINF [facility] Comment on above: Calculations of danielle mated GFR are performed using the 2020 CKD-EPI Study Refit equation without the race variable for the IDMS-Traceable creatinine methods. https://jasn.asnjournals.org/content//ASN.7043017 988 Glucose [Mass/Vol] 108 mg/dL High 74 - 99 mg/dL [facility] Interpretation and review of laboratory results Abnormal [facility] Potassium [Moles/Vol] 3.8 mmol/L 3.5 - 5.3 mmol/L [facility] Protein [Mass/Vol] 7.8 g/dL 6.4 - 8.2 g/dL Un [facility] Sodium [Moles/Vol] 136 mmol/L 136 - 145 mmol/L [facility] Urea nitrogen [Mass/Vol] 13 mg/dL 6 - 23 mg/dL [facility] ECG 12-LEADon 08-07-2023 ECG 12-LEAD Ventricular Rate 73 Atrial Rate 73 P-R Interval 168 QRS Duration 70 Q-T Interval 392 QTC Calculation(Bazett) 431 P [place] 32 R [place] 43 T [place] 24 QRS Count 12 Q Onset 225 P Onset 141 P Offset 194 T Offset 421 QTC Fredericia 418 Diagnosis Normal sinus rhythm Septal infarct , age undetermined Abnormal ECG No previous ECGs available Confirmed by Josie Anthony ([id number]) on 08/29/2023 9:59:19 PM Normal [facility] No Panel Informationon 08-07 Radiology Study observation (narrative) [facility] Work Phone: PT Coag (PPP) [Time]on 08-07 INR Coag (PPP) [Relative time] 1.0 Normal 0.9-1.1 [facility] Comment on above: Performed By: #### 5 902-2 #### MIK FREITAS ([id number]) [facility] ([facility]) [address] [place] [address] INR Coag (PPP) [Relative time] 1.0 {INR} 0.9 - 1.1 [facility] Interpretation and review of laboratory results Normal [facility] Protime-INRon 08-07-2023 PT Coag (PPP) [Time] 11.1 s [facility] CBC AUTO DIFFon 08-08-2022 BASO # 0.0 103/ul Normal 0.0-0.1 [facility] Comment on above: Performed By: #### C BC #### [facility] [address] [address] [address] Enrique Parkinson Basophils/100 WBC (Bld) 0.6 % Normal 0.2-2.0 [facility] Comment on above: Performed By: #### C BC #### [facility] [address] [address] [address] Enrique Parkinson EO # 0.1 103/ul Normal 0.0-0.7 [facility] Comment on above: Performed By: #### C BC #### [facility] [address] [place] [address] Dr. Enrique Parkinson Eosinophils/100 WBC (Bld) 0.9 % Normal 0.9-7.0 [facility] Comment on above: Performed By: #### C BC #### [facility] [address] [place] [address] Dr. Enrique Parkinson Erythrocyte distribution width (RBC) [Ratio] 12.9 % Normal 11.0-15.0 [facility] Comment on above: Performed By: #### C BC #### [facility] [address] [place] [address] Dr. Enrique Parkinson Hematocrit (Bld) [Volume fraction] 41.5 % Normal 36.0-48.0 [facility] Comment on above: Performed By: #### C BC #### [facility] [address] [place] [address] Dr. Enrique Parkinson Hemoglobin (Bld) [Mass/Vol] 14.3 g/dL Normal 12.0-16.0 [facility] Comment on above: Performed By: #### C BC #### [facility] [address] [place] [address] Dr. Enrique Parkinson IG # 0.02 10e3/ul Normal 0.00-0.03 [facility] Comment on above: Performed By: #### C BC #### [facility] [address] [place] [address] Dr. Enrique Parkinson IG % 0.3 % Normal 0.0-0.5 [facility] Comment on above: Performed By: #### C BC #### [facility] [address] [place] [address] Dr. Enrique Parkinson LYMPH # 1.8 103/ul Normal 1.2-3.8 [facility] Comment on above: Performed By: #### C BC #### [facility] [address] [place] [address] Dr. Enrique Parkinson Lymphocytes/100 WBC (Bld) 25.9 % Normal 20.5-60.0 [facility] Comment on above: Performed By: #### C BC #### [facility] [address] [place] [address] Dr. Enrique Parkinson MANUAL DIFF REQ NO Normal [facility] [place] Comment on above: Performed By: #### C BC #### [facility] [address] [place] [address] Dr. Enrique Parkinson MCH (RBC) [Entitic mass] 30.2 pg Normal 26.7-34.0 [facility] Comment on above: Performed By: #### C BC #### [facility] [address] [place] [address] Dr. Enrique Parkinson MCHC (RBC) [Mass/Vol] 34.5 g/dL Normal 29.9-35.2 [facility] Comment on above: Performed By: #### C BC #### [facility] [address] [place] [address] Dr. Enrique Parkinson MCV (RBC) [Entitic vol] 87.6 fL Normal 81.0-99.0 [facility] Comment on above: Performed By: #### C BC #### [facility] [address] [place] [address] Dr. Enrique Parkinson MONO # 0.4 103/ul Normal 0.3-0.8 [facility] Comment on above: Performed By: #### C BC #### [facility] [address] [place] [address] Dr. Enrique Parkinson Monocytes/100 WBC (Bld) 5.1 % Normal 1.7-12.0 [facility] Comment on above: Performed By: #### C BC #### [facility] [address] [place] [address] Dr. Enrique Parkinson NEUT # 4.6 103/ul Normal 1.4-6.5 [facility] Comment on above: Performed By: #### C BC #### [facility] [address] [place] [address] Dr. Enrique Parkinson Neutrophils/100 WBC (Bld) 67.2 % Normal 43.0-75.0 [facility] Comment on above: Performed By: #### C BC #### [facility] [address] [place] [address] Dr. Enrique Parkinson Platelet mean volume (Bld) [Entitic vol] 9.2 fL Critically low 9.5-13.5 [facility] Comment on above: Performed By: #### C BC #### [facility] [address] [place] [address] Dr. Enrique Parkinson PLT 246 103/ul Normal 150-450 [facility] Comment on above: Performed By: #### C BC #### [facility] [address] [place] [address] Dr. Enrique Parkinson RBC 4.74 106/ul Normal 4.20-5.40 [facility] Comment on above: Performed By: #### C BC #### [facility] [address] [place] [address] Dr. Enrique Parkinson WBC 6.9 103/ul Normal 4.0-11.0 [facility] Comment on above: Performed By: #### C BC #### [facility] [address] [place] [address] Dr. Enrique Parkinson FREE T3on 08-08-2022 FREE T3 2.43 pg/mlL Normal 2.18-3.98 [facility] Comment on above: Performed By: #### T 4, TSH, LIPID, CMP, FT3 #### [facility] [address] [place] [address] Dr. Enrique Parkinson GLYCOHEMOGLOBIN A1Con 2022 ADA RECOMMENDATION SEE BELOW Normal [facility] Comment on above: Result Comment: ADA RECOMMENDED LIMIT 4.0 - 6.0 ADA THERAPEUTIC TARGET < 7.0 ACTION SUGGESTED > 7.0 Performed By: #### A 1C #### [facility] [address] [address] [address] Enrique Parkinson Glucose [Mass/Vol] 114 mg/dL Normal [facility] Comment on above: Performed By: #### A 1C #### [facility] [address] [place] [address] Dr. Enrique Parkinson HbA1c (Bld) [Mass fraction] 5.6 % Normal 4.5-6.2 [facility] Comment on above: Performed By: #### A 1C #### [facility] [address] [place] [address] Dr. Enrique Parkinson LIPID PROFILEon 08-08-2022 CHOL-HDL RATIO NORM SEE BELOW Normal [place] Comment on above: Result Comment: 3.3 - 4.4 LOW RISK 4.4 - 7.1 AVERAGE RISK 7.1 - 11.0 MODERATE RISK >11.0 HIGH RISK Performed By: #### T 4, TSH, LIPID, CMP, FT3 #### [facility] [address] [place] [address] Dr. Enrique Parkinson Cholesterol [Mass/Vol] 241 mg/dL Critically high <=200 [facility] Comment on above: Performed By: #### T 4, TSH, LIPID, CMP, FT3 #### [facility] [address] [place] [address] Dr. Enrique Parkinson Cholesterol in HDL [Mass/Vol] 45 mg/dL Normal 40-60 [facility] Comment on above: Performed By: #### T 4, TSH, LIPID, CMP, FT3 #### [facility] [address] [place] [address] Dr. Enrique Parkinson Cholesterol in LDL [Mass/Vol] 131.2 mg/dL Normal [facility] Comment on above: Performed By: #### T 4, TSH, LIPID, CMP, FT3 #### [facility] [address] [place] [address] Dr. Enrique Parkinson Cholesterol.total/Ch olesterol in HDL [Mass ratio] 5.4 {ratio} Normal [facility] Comment on above: Performed By: #### T 4, TSH, LIPID, CMP, FT3 #### [facility] [address] [address] [address] Enrique Parkinson HDL NORMAL > or = 60 mg/dl - LO W CARDIOVASCULAR RISK <40 mg/dl - HIGH CARDIOVASCULAR RISK Normal [facility] Comment on above: Performed By: #### T 4, TSH, LIPID, CMP, FT3 #### [facility] [address] [address] [address] Enrique Parkinson LDL CALC NORMAL SEE BELOW Normal [facility] [place] Comment on above: Result Comment: <100 mg/dl OPTIMAL 100 - 129 mg/dl NEAR OR ABOVE OPTIMAL 130 - 159 mg/dl BORDERLINE HIGH 160 - 189 mg/dl HIGH >190 mg/dl VERY HIGH Performed By: #### T 4, TSH, LIPID, CMP, FT3 #### [facility] [address] [address] [address] Enrique Parkinson Triglyceride [Mass/Vol] 324 mg/dL Critically high <=150 [facility] Comment on above: Performed By: #### T 4, TSH, LIPID, CMP, FT3 #### [facility] [address] [address] [address] Enrique Parkinson VLDL CALC 64.8 mg/dL Normal [facility] Comment on above: Performed By: #### T 4, TSH, LIPID, CMP, FT3 #### [facility] [address] [address] [address] Enrique Parkinson PROF 14(COMP METB)on 023 Albumin [Mass/Vol] 4.1 g/dL Normal 3.4-5.0 [facility] Comment on above: Performed By: #### T 4, TSH, LIPID, CMP, FT3 #### [facility] [address] [address] [address] Enrique Parkinson Albumin/Globulin [Mass ratio] 1.1 {ratio} Normal [facility] Comment on above: Performed By: #### T 4, TSH, LIPID, CMP, FT3 #### [facility] [address] [address] [address] Enrique Parkinson ALP [Catalytic activity/Vol] 83 U/L Normal 46-116 [facility] Comment on above: Performed By: #### T 4, TSH, LIPID, CMP, FT3 #### [facility] [address] [place] [address] Dr. Enrique Parkinson ALT [Catalytic activity/Vol] 28 U/L Normal 14-59 [facility] Comment on above: Performed By: #### T 4, TSH, LIPID, CMP, FT3 #### [facility] [address] [place] [address] Dr. Enrique Parkinson Anion gap [Moles/Vol] 12.3 mmol/L Normal [facility] Comment on above: Performed By: #### T 4, TSH, LIPID, CMP, FT3 #### [facility] [address] [place] [address] Dr. Enrique Parkinson AST [Catalytic activity/Vol] 20 U/L Normal 15-37 [facility] Comment on above: Performed By: #### T 4, TSH, LIPID, CMP, FT3 #### [facility] [address] [place] [address] Dr. Enrique Parkinson Bilirubin [Mass/Vol] 0.4 mg/dL Normal 0.2-1.0 [facility] Comment on above: Performed By: #### T 4, TSH, LIPID, CMP, FT3 #### [facility] [address] [place] [address] Dr. Enrique Parkinson Calcium [Mass/Vol] 9.2 mg/dL Normal 8.5-10.1 [facility] Comment on above: Performed By: #### T 4, TSH, LIPID, CMP, FT3 #### [facility] [address] [place] [address] Dr. Enrique Parkinson Chloride [Moles/Vol] 101 mmol/L Normal 98-107 [facility] Comment on above: Performed By: #### T 4, TSH, LIPID, CMP, FT3 #### [facility] [address] [place] [address] Dr. Enrique Parkinson CO2 [Moles/Vol] 29.4 mmol/L Normal 21.0-32.0 [facility] Comment on above: Performed By: #### T 4, TSH, LIPID, CMP, FT3 #### [facility] [address] [place] [address] Dr. Enrique Parkinson Creatinine [Mass/Vol] 0.80 mg/dL Normal 0.55-1.02 [facility] Comment on above: Performed By: #### T 4, TSH, LIPID, CMP, FT3 #### [facility] [address] [place] [address] Dr. Enrique Parkinson EGFR-AF URUGUAYAN >60 Normal >=60 [facility] Comment on above: Performed By: #### T 4, TSH, LIPID, CMP, FT3 #### [facility] [address] [place] [address] Dr. Enrique Parkinson EGFR-NON AF URUGUAYAN >60 Normal >=60 [facility] Comment on above: Performed By: #### T 4, TSH, LIPID, CMP, FT3 #### [facility] [address] [place] [address] Dr. Enrique Parkinson Globulin (S) [Mass/Vol] 3.8 g/dL Normal [facility] Comment on above: Performed By: #### T 4, TSH, LIPID, CMP, FT3 #### [facility] [address] [place] [address] Dr. Enrique Parkinson Glucose [Mass/Vol] 111 mg/dL Critically high 74-106 [facility] Comment on above: Performed By: #### T 4, TSH, LIPID, CMP, FT3 #### [facility] [address] [place] [address] Dr. Enrique Parkinson Potassium [Moles/Vol] 3.7 mmol/L Normal 3.5-5.1 [facility] Comment on above: Performed By: #### T 4, TSH, LIPID, CMP, FT3 #### [facility] [address] [place] [address] Dr. Enrique Parkinson Protein [Mass/Vol] 7.9 g/dL Normal 6.4-8.2 [facility] Comment on above: Performed By: #### T 4, TSH, LIPID, CMP, FT3 #### [facility] [address] [address] [address] Enrique Parkinson Sodium [Moles/Vol] 139 mmol/L Normal 136-145 [facility] Comment on above: Performed By: #### T 4, TSH, LIPID, CMP, FT3 #### [facility] [address] [place] [address] Dr. Enrique Parkinson Urea nitrogen [Mass/Vol] 15.0 mg/dL Normal 7.0-18.0 [facility] Comment on above: Performed By: #### T 4, TSH, LIPID, CMP, FT3 #### [facility] [address] [place] [address] Dr. Enrique Parkinson Urea nitrogen/Creatinine [Mass ratio] 18.8 mg/mg Normal [facility] Comment on above: Performed By: #### T 4, TSH, LIPID, CMP, FT3 #### [facility] [address] [place] [address] Dr. Enrique Parkinson T4on 08-08-2022 T4 [Mass/Vol] 10.30 ug/dL Normal 4.80-13.90 [facility] Comment on above: Performed By: #### T 4, TSH, LIPID, CMP, FT3 #### [facility] [address] [place] [address] Dr. Enrique Parkinson TSHon 08-08-2022 TSH 0.847 uIU/mL Normal 0.358-3.740 [facility] Comment on above: Performed By: #### T 4, TSH, LIPID, CMP, FT3 #### [facility] [address] [place] [address] Dr. Enrique Parkinson VITAMIN D 25 OHon 08-08-2022 VIT D 25-OH 35.8 ng/mL Normal [facility] Comment on above: Performed By: #### V ITAD #### [facility] [address] [place] [address] Dr. Enrique Parkinson VIT D RANGES SEE BELOW Normal [facility] Comment on above: Result Comment: <20 ng/mL Vit D deficient 20 - <30 ng/mL Vit D insufficient 30 - 100 ng/mL Vit D sufficient >100 ng/mL Potential Toxicity Performed By: #### V ITAD #### [facility] [address] [place] [address] [address] [address] Enrique Parkinson Covid-19 PCR ([facility])on 12-15 SARS-CoV-2 (COVID-19) RNA RENATO+probe Ql (Unsp spec) Not detected Normal NOT DETECTED [facility] Comment on above: Result Comment: This test is not yet approved or cleared by the [place] FDA. When there are no FDA-approved or cleared tests available, and other criteria are met, FDA can make tests available under an emergency access mechanism called an Emergency Use Authorization (EUA). The EUA for this test is supported by the [place] of Health and Human Service's (HHS's) declaration [...] SARS-CoV-2. Performed By: #### C VDTB #### [facility] [address] [place] [address] [address] [address] Enrique Parkinson SYMPTOMATIC COVID-19 ANTIGEN on 01-04-2022 EUA Statement SEE BELOW Normal [facility] Comment on above: Result Comment: This test [...] sooner. Performed By: #### C VDAGS #### [facility] [address] [place] [address] Dr. Enrique Parkinson SARS-CoV-2 (COVID-19) RNA RENATO+probe Ql (Unsp spec) Negative Normal NEGATIVE [facility] Comment on above: Performed By: #### C VDAGS #### [facility] [address] [place] [address] Dr. Enrique Parkinson PAP ACOG PANEL 2: 30 to 65on 11-19-2021 . . Normal [facility] Comment on above: Result Comment: Perf ormed at: WB Performed By: #### C VDAGS #### [facility] [address] [place] [address] Dr. Enrique Parkinson Age Gdln ACOG Testing 30-65 Normal [facility] Comment on above: Performed By: #### C VDAGS #### [facility] [address] [place] [address] Dr. Enrique Parkinson DIAGNOSIS: Comment Normal [facility] Comment on above: Result Comment: NEGA TIVE FOR INTRAEPITHELIAL LESION OR MALIGNANCY. Performed at: WB Performed By: #### C VDAGS #### [facility] [address] [place] [address] Dr. Enrique Parkinson HPV Aptima Negative Normal Negative [facility] Comment on above: Result Comment: This nucleic acid amplification test detects fourteen high-risk HPV types (16,18,31,33,35,39,45,51,52,56,58,59,66,68) without differentiation. Performed at: =G Performed By: #### C VDAGS #### [facility] [address] [place], [place] [id number] Dr. Enrique Parkinson Methodology: Comment Normal [facility] Comment on above: Result Comment: This liquid based ThinPrep(R) pap test was screened with the use of an image guided system. Performed at: WB Performed By: #### C VDAGS #### [facility] [address] [place] [address] Dr. Enrique Parkinson Note: Comment Normal [facility] Comment on above: Result Comment: The [...] WB Performed By: #### C VDAGS #### [facility] [address] [address] [address] Enrique Parkinson Performed by: Comment Normal [facility] Comment on above: Result Comment: Hipolito Rosenberg, Press Pipe Inspector (ASCP) Performed at: WB Performed By: #### C VDAGS #### [facility] [address] [place] [address] Dr. Enrique Parkinson Specimen adequacy: Comment Normal [facility] Comment on above: Result Comment: Sati sfactory for evaluation. Endocervical and/or squamous metaplastic cells (endocervical component) are present. Performed at: WB Performed By: #### C VDAGS #### [facility] [address] [place] [address] Dr. Enrique Parkinson Vital Signs Date Time Vital Sign Value Performing Clinician Facility 08-07-2023 10:27-0500 Diastolic blood pressure 94 mm[Hg] Aruba Dennison DO Work Phone: [facility] 08-07-2023 10:27-0500 Heart rate 77 /min Aruba Dennison DO Work Phone: [facility] 08-07-2023 10:27-0500 SaO2% (BldA) [Mass fraction] 98 % Aruba Dennison DO Work Phone: [facility] 08-07-2023 10:27-0500 Systolic blood pressure 140 mm[Hg] Aruba Dennison DO Work Phone: [facility] 08-07-2023 08:01-0500 Body height 167.6 cm Aruba Dennison DO Work Phone: [facility] 08-07-2023 08:01-0500 Body mass index (BMI) [Ratio] 29.05 kg/m2 Aruba Dennison DO Work Phone: [facility] 08-07-2023 08:01-0500 Body temperature 98.1 [degF] Aruba Dennison DO Work Phone: [facility] 08-07-2023 08:01-0500 Body weight 81.65 kg Aruba Dennison DO Work Phone: [facility] 08-07-2023 08:01-0500 Respiratory rate 16 /min Aruba Dennison DO Work Phone: [facility] 12-14-2022 14:45-0400 Body height 167.64 cm Mirta Chacko Other [employer] Other 12-14-2022 14:45-0400 Body mass index (BMI) [Ratio] 30.18 kg/m2 Mirta Chacko Other [employer] Other 12-14-2022 14:45-0400 Body temperature 97.8 [degF] Mirta Chacko Other [facility] Other 12-14-2022 14:45-0400 Body weight 84.82 kg Mirta Chacko Other [employer] Other 12-14-2022 14:45-0400 Respiratory rate 18 /min Mirta Chacko Other [employer] Other 12-14-2022 14:45-0400 SaO2% (BldA) [Mass fraction] 98 % Mirta Chacko Other [employer] Other Encounters Encounter Date Encounter Type Care Provider Facility Start: 08-07-2023 End: 08-07-2023 Emergency department patient visit RAKESH LUNDBERG [facility] Start: 08-07-2023 End: 08-07-2023 Emergency department patient visit Raj Webber Miracle DO Work Phone: [facility] Comment on above: Fall, initial encoun ter (Primary Dx); Closed head injury, initial encounter Start: 12-14-2022 End: 12-14-2022 ambulatory Mirta Chacko [facility] [email or web address] Other Start: 12-14-2022 Office outpatient ne w 30 minutes Mirta Chacko [facility] Start: 08-09-2022 Encounter for genera l adult medical examination without abnormal findings DR RAKESH LUNDBERG [facility] Start: 08-08-2022 End: 08-09-[address] [...] 03-16-2023 Influenza vaccination Influenza Vacc ine (#1) [facility] Start: 05-24-2021 COVID-19 Vaccine (3 - Pfizer series) COVID-19 Vaccine (3 - Pfizer series) [facility] Start: 2017 Zoster Vaccines (1 of 2) Zoste r Vaccines (1 of 2) [facility] Start: 2007 Screening for malign ant neoplasm of breast Mammogram [facility] Start: 1989 DTaP/Tdap/Td Vaccine s (1 - Tdap) DTaP/Tdap/Td Vaccines (1 - Tdap) [facility] Start: 01-06-1988 Screening for malign ant neoplasm of cervix [facility] Start: 1985 Diabetes mellitus screening Diabetes Screening [facility] Start: 1985 Hepatitis C screening Hepatitis C Sc reening [facility] Start: 01-06-1968 MMR Vaccines (1 of 1 - Standard series) MMR Vaccines (1 of 1 - Standard series) [facility] Start: 1967 Hepatitis B Vaccines (1 of 3 - 3-dose series) Hepatitis B Vaccines (1 of 3 - 3-dose series) [facility] Start: 1967 HIV screening HIV Screening [facility] Start: 1967 Lipid panel Lipid Panel [facility] Start: 1967 Screening for malign ant neoplasm of colon [facility] Start: 1967 Yearly Adult Physical Yearly Adult P hysical [facility] ECG 12 lead ECG 12 lead ECG STAT 08/07/2023 8:33 AM EST [facility] Service Area Work Phone: Payers Date Payer Category Payer Unknown [id number] 2020 Unknown [facility] [id number] 2020-Present Sada Trimble [id number] [place] [address] [id number] 1967 Unknown [id number] 1967 Unknown [id number] 1967 Unknown [id number] 1967 Unknown [id number] 1967 Unknown [id number] 1967 Unknown [id number] 1959 Self-pay [id number] 1959 Unknown [id number] Social History Date Type Detail Facility Unknown if ever smoked [facility] 3D Data Other Sex Assigned At [employer] [facility] 3D Data Other Tobacco smoking status [facility] Tobacco smoking consumption unknown [facility] Work Phone: Start: 1965 Sex Assigned At Not on file [facility] Work Phone: Start: 07-28-2023 End: 08-07-2023 Exposure to SARS-CoV-2 (event) Not sure [facility] Work Phone: Hospital Discharge instructions 08-07-2023 Discharge [...] needed for pain. documented in this encounter [facility] Work Phone: Evaluation note 12-14-2022 Note Date [...] resolved. Patient verbalized understanding of treatment plan [id number] Other Evaluation note Note Date & Type Note Facility Evaluation note Diagnosis Fall, initial encounter- Primary Closed head injury, initial encounter documented in this encounter [facility] Work Phone: History general Narrative - Reported Note Date & Type Note Facility History general Narrative - Reported Type Medical History high blood pressure Medical History thyroid disease Surgical History C section Surgical History lobectomy Surgical History wrist surgery Surgical History bowel surgery Hospitalization History see above [facility] Other Summary Purpose Family History No Family History Records FoundNo Family History Records FoundNo Family History Records Found Advance Directives No Advanced Directives Records FoundNo Advanced Directives Records FoundNo Advanced Directives Records Found Additional Source Comments INFORMATION SOURCE (unrecogn ized section and content) DATE CREATED AUTHOR 08/14/2022 [facility] DATE CREATED AUTHOR AUTHOR'S ORGANIZ ATION 08/31/2023 [facility] DATE CREATED AUTHOR AUTHOR'S ORGANIZ ATION 10/07/2023 [facility] REASON FOR VISIT (unrecogniz ed section and [...] Care Teams (unrecognized sec tion and content) 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 [employer] provides no warranty or guarantee of the accuracy or completeness of information in this document.
--- NOTE | 2024-03-05 06:05 | NM_ITS ---
Patient Name: PRAVEENA DACOSTA MR#: [id number] : 1965 Exam Date: 03/05/2024 Ordering Doctor: DR RAKESH VERNON . RADIOLOGY REPORT PROCEDURE: NM MATT PERF SPECT REST STR COMPARISON: None. INDICATIONS: CHEST PAIN TECHNIQUE: Exam Description: Stress/Rest one day protocol gated SPECT Rest Imagin.0 mCi Tc-99m Cardiolite IV on 03/05/2024 Stress Imaging 30.7 mCi Tc-99m Cardiolite IV on 03/05/2024 Exercise Protocol: Rj Heart Rate (bpm): Rest: 64 Max: 173 PMHR: 106 Blood Pressure: Rest: 138/92 Max: 172/94 Exercise Time: Minutes: 12 Seconds: 43 Stage Reached: Stage: 5 Mets 16 Symptoms: Rest and peak stress ECG findings were normal and the exercise portion of the study was normal per attending physician Dr. Casarez . For more details please see separate cardiac stress test report. FINDINGS: QUALITY OF STUDY: Excellent. PERFUSION DEFECT: None. LOCATION: N/A SIZE: N/A. SEVERITY: N/A. TYPE: N/A. WALL MOTION: Normal. LV SIZE: Normal. 47 mL. TID / TCD: None; 0.6 LVEF: Normal. Calculated EF 81%. SUMMARY: Myocardial perfusion imaging study is NORMAL. CONCLUSION: 1. Normal nuclear medicine myocardial perfusion scan. Dictated by: Philip Taylor M.D. on 03/06/2024 at 12:03 Approved by: Philip Taylor M.D. on 03/06/2024 at 12:51
--- NOTE | 2024-03-05 10:55 | PC.NURSE ---
Nursing Note Cardiac Stress Test Reviewed: Medication, allergies and patient history reviewed. Stress Test: [ x] Patient tolerated stress test well. [ ] Patient unable to tolerate walking on treadmill. Switched to Lexiscan stress test. [x ] No chest pain noted per patient [ ] Chest pain that resolved prior to leaving stress lab. [x ] No dyspnea noted. [ ] Dyspnea that resolved prior to leaving stress lab. [ x] Patient left stress lab asymptomatic and hemodynamically stable. [ ] Patient taken to the Emergency Room due to non-resolving symptoms following stress test. [x ] Patient achieved target heart rate. [ ] Patient unable to achieve target heart rate. [ ] Aminophylline administered as reversal agent to Lexiscan (Regadenoson). [ ] Nitro administered. Nursing Comments:
--- NOTE | 2024-03-05 13:25 | PM.STRESS ---
Stress Test Stress Test Requesting physician: Sandeep Lundberg Procedure: Exercise Cardiolite stress test General Information: Reason for Stress Test: Chest pain Cardiac History and Risk Factors: History of COVID, father has CHF and CAD. Resting 12 - Lead Electrocardiogram: Normal sinus with rate of 64. Normal axis. Inverted T-waves in aVL. Stress Test: Protocol: Rj protocol was followed, with injection of Cardiolite once target heart rate was achieved. Exercise capacity: Superb exercise capacity. Total exercise time of 12 minutes 43seconds reached Rj stage 5 at 5MPH, 18% grade, & 16 METs. Blood pressure: Initial: 138/92, Maximum: 172/94 Rate & rhythm: Patient remained in sinus rhythm during the exercise and recovery portions of the study.? The maximum heart rate was 173, which was 106% of the maximum predicted heart rate. PVCs an PAC noted. ST-segments & T-waves: No significant changes when compared to the baseline EKG. Patient response/symptoms: No reproducible symptoms to chief complaint. Interpretation: Normal exercise stress test without electrocardiographical evidence of ischemia. Asymptomatic of chief complaint. Cardiolite imaging interpretation will be reported separately. Clinical correlation required.?
== END 2024-03-05 06:03 | disposition home or self-care (01) ==
LOC: NM 06:03
PROVIDERS: PCP Family Medicine; Visit Provider Family Medicine
DX: R07.9 Chest pain, unspecified (principal)
CPT/HCPCS: 78452; 93017; A9500

== ENCOUNTER 2024-05-11 01:54 | Observation (INO) | payer BC, SELFPAY ==
[2024-05-11] VITALS (14 sets, daily range): BP systolic 107–128; BP diastolic 67–88; PULSE 62–85; TEMP 36.4–37; O2SAT 93–98; BMI 25.0; BMI 25.9
--- NOTE | 2024-05-11 02:13 | ED.ABDPAIN1 ---
HPI - Abdominal Pain General Chief Complaint: Abdominal Pain Stated Complaint: ABDOMINAL PAIN/VOMITTING/DIARRHEA Time Seen by Provider: 05/11/24 02:08 Source: patient Mode of arrival: Wheelchair Limitations: no limitations History of Present Illness HPI narrative: patient presents complaining of abdominal pain . states she has had similar pain in the past but this time is worse. Started an hour after eating around 9pm. Has vomited several time and also passed blood (bright red) per rectum. Related Data Home Medications ?Medication ?Instructions ?Recorded ?Confirmed fluoxetine 10 mg capsule 10 mg PO DAILY 05/11/24 05/11/24 levothyroxine 125 mcg tablet 125 mcg PO DAILY 05/11/24 05/11/24 lisinopril 10 mg tablet 10 mg PO DAILY 05/11/24 05/11/24 modafinil 200 mg tablet 200 mg PO DAILY 05/11/24 05/11/24 Previous Rx's ?Medication ?Instructions ?Recorded ciprofloxacin HCl 500 mg tablet 500 mg PO BID 7 days #14 tabs 05/12/24 metronidazole 500 mg tablet 500 mg PO BID 7 days #14 tabs 05/12/24 Allergies Allergy/AdvReac Type Severity Reaction Status Date / Time penicillin G Allergy Severe Hives Verified 05/11/24 02:00 Review of Systems ROS Status of ROS 10 or more systems reviewed and unremarkable except as noted in history and below [facility] Medical History (Updated 05/11/24 @ 08:43 by Mila Xiao DO) Sleep apnea ?G47.30 - Sleep apnea, unspecified (ICD-10) Hypothyroidism ?E03.9 - Hypothyroidism, unspecified (ICD-10) HTN (hypertension) ?I10 - Essential (primary) hypertension (ICD-10) Surgical History History of lobectomy of lung ?Z90.2 - Acquired absence of lung [part of] (ICD-10) Family History Other Family history of CHF (congestive heart failure) Family history of cancer Family history of diabetes mellitus Family history of hypertension Family history of myocardial infarction Social History Within the past year, how often did you have a drink containing alcohol: monthly or less Smoking status: Never smoker Non-prescribed substance use: denies use Are you now , , , , never or living with a partner: In a typical week, how many times do you talk on the telephone with family, friends, or neighbors: 3 or more times per week How often do you get together with friends or relatives: 3 or more times per week Little interest or pleasure in doing things: not at all Feeling down, depressed, or hopeless: not at all Feel stressed/tense/nervous/anxious/difficulty sleeping: not at all Do you think of yourself as: straight/heterosexual Gender Identity: female Exam Constitutional Vital Signs, click to edit/add: Last Vital Signs Temp 98.3 F 05/12/24 11:37 Pulse 76 05/12/24 11:37 Resp 20 05/12/24 07:47 BP 109/71 05/12/24 11:37 Pulse Ox 93 L 05/12/24 11:37 O2 Del Method Room Air 05/12/24 11:37 Common normals: average body habitus, oriented x3, no limitations, healthy appearing, alert and well nourished General appearance: in distress (mild) HENMT Common normals: normocephalic and head/scalp atraumatic Eye Common normals: EOMs intact bilaterally and conjunctivae normal Respiratory Common normals: normal respiratory effort, no retractions, no use of accessory muscles and clear to auscultation bilaterally Cardio Common normals: regular rate, regular rhythm, S1 normal heart sound and S2 normal heart sound GI Common normals: Normal to inspection, nondistended, normoactive bowel sounds present, soft to palpation and non-tender Extremity Common normals: normal to inspection and full ROM Neuro Common normals: oriented x3, CN's II-XII intact bilaterally, moves all extremities, no focal motor deficits and no sensory deficits noted Psych Appearance: grossly normal Course Course Hospital Course: Patient is a 59 y.o white female with past medical history of hypothyroidism, hypertension, depression and obesity who presented to the ER with a several hour history of nausea/vomiting/ diarrhea. She has been having bright red blood after bowel movements. The ER physician performed a digital rectal exam and noted a large external hemorrhoid. Patient denies fevers or chills but significant diffuse abdominal pain with n/v/d. She has no history of inflammatory bowel disease. Had colonoscopy at 52 years old, normal findings. She recently has been taking ozempic for weight loss. She notes this stomach pain has happened twice recently all after eating fatty foods. Denies fevers, chest pain or shortness of breath ER findings: WBC's 19.8, Hb 14.8, Lactate 1.3, ALT 70; CT of the abdomen showed diffuse colitis most significant in the descending and sigmoid colon with some stool burden in the ascending colon, no free air. Patient was provided pain medication, started on cipro and flagyl and admitted for further plan of care. She continued to tolerated the Cipro Flagyl well, she was advanced to clears by General surgery and tolerated well. At the time of discharge, WBC's have normalized to 10.2, there was drop in hb to 11.3 but Diarrhea stopped and no further blood per rectum. Her abdominal pain has resolved. She would like to go home. I will give her a work note to remain off work until evaluated by PCP. She will complete 7 days of Cipro and Flagyl 500mg BID. She is to return to the ER with fevers, worsening abdominal pain or bleeding. She should have follow up with General surgery 1-2 months for colonoscopy. She plans to stop Ozempic. Stool culture still pending and discussed PCP can follow this, Cdiff was negative. Patient recovered faster than anticipated. Vital Signs Vital signs: Vital Signs Temperature 98.6 F 05/11/24 02:00 Pulse Rate 85 05/11/24 02:00 Respiratory Rate 18 05/11/24 02:00 Blood Pressure 123/88 05/11/24 02:00 Pulse Oximetry 96 05/11/24 02:00 Oxygen Delivery Method Room Air 05/11/24 02:00 Temperature 98.3 F 05/12/24 11:37 Pulse Rate 76 05/12/24 11:37 Respiratory Rate 20 05/12/24 07:47 Blood Pressure 109/71 05/12/24 11:37 Pulse Oximetry 93 L 05/12/24 11:37 Oxygen Delivery Method Room Air 05/12/24 11:37 MDM - Abdominal Pain MDM Narrative Medical decision making narrative: patient presents with onset of abdominal pain about 5 hours ago associated with recurrent vomiting and passing bright red blood per rectum at home. did go to bathroom here in the department and passed bright red blood again. workup initiated to include labs, fluids and CT diagnostic studies rectal exam with external hemorrhoid that is enlarged. Digital exam with empty vault CT with findings of colitiis Discussed with the hospitalist and will plan obs admission Lab Data Labs: Lab Results 05/11/24 05/11/24 Range/Units 02:06 02:18 WBC 19.8 H (4.0-11.0) 10^3/uL RBC 4.91 (4.20-5.40) 10^6/uL Hgb 14.8 (12.0-16.0) g/dL Hct 43.2 (36.0-48.0) % MCV 88.0 (81.0-99.0) fL MCH 30.1 (26.7-34.0) pg MCHC 34.3 (29.9-35.2) g/dL RDW 12.7 (11.0-15.0) % Plt Count 285 (150-450) 10^3/uL MPV 9.0 L (9.5-13.5) fL Neut % (Auto) 86.8 H (43.0-75.0) % Lymph % (Auto) 7.8 L (20.5-60.0) % [place] % (Auto) 4.4 (1.7-12.0) % Eos % (Auto) 0.4 L (0.9-7.0) % Baso % (Auto) 0.3 (0.2-2.0) % Neut # (Auto) 17.2 H (1.4-6.5) 10^3/uL Lymph # (Auto) 1.6 (1.2-3.8) 10^3/uL [place] # (Auto) 0.9 H (0.3-0.8) 10^3/uL Eos # (Auto) 0.1 (0.0-0.7) 10^3/uL Baso # (Auto) 0.1 (0.0-0.1) 10^3/uL Abs Immat Gran (auto) 0.06 H (0.00-0.03) 10^3/uL Imm/Tot Granulo (auto) 0.3 (0.0-0.5) % Sodium 140 (136-145) mmol/L Potassium 3.9 (3.5-5.1) mmol/L Chloride 104 (98-107) mmol/L Carbon Dioxide 26.2 (21.0-32.0) mmol/L Anion Gap 13.7 BUN 18.0 (7.0-18.0) mg/dL Creatinine 0.89 (0.55-1.02) mg/dL Est GFR ( Amer) >60 (>=60 mL/min/1.73m^2) Est GFR (Non-Af Amer) >60 (>=60 mL/min/1.73m^2) BUN/Creatinine Ratio 20.2 Glucose 127 H (74-106) mg/dL Lactate 1.3 (0.4-2.0) mmol/L Calcium 9.3 (8.5-10.1) mg/dL Total Bilirubin 0.5 (0.2-1.0) mg/dL AST 35 (15-37) U/L ALT 70 H (14-59) U/L Alkaline Phosphatase 92 (46-116) U/L Total Protein 7.4 (6.4-8.2) g/dL Albumin 3.9 (3.4-5.0) g/dL Globulin 3.5 g/dL Albumin/Globulin Ratio 1.1 Lipase 41.0 (16.0-77.0) U/L Urine Color Dk. yellow (YELLOW) Urine Clarity Sl cloudy (CLEAR) Urine pH 5.5 (5.0-9.0) Ur Specific [place] >=1.030 A (1.005-1.025) Urine Protein Negative (NEG/TRACE) mg/dL Urine Glucose (UA) Negative (NEGATIVE) mg/dL Urine Ketones Trace A (NEGATIVE) mg/dL Urine Occult Blood Negative (NEGATIVE) Urine Nitrite Negative (NEGATIVE) Urine Bilirubin Small A (NEGATIVE) Urine Urobilinogen 0.2 (0.2-1.0) EU/dL Ur Leukocyte Esterase Negative (NEGATIVE) Imaging Data Chest x-ray: Radiologist's impression: ITS Impressions Abdomen/Pelvis CT 05/11/24 02:16 IMPRESSION: Findings consistent with a colitis, most pronounced along the descending and sigmoid colon. There is no free air, free fluid or abscess. Nonobstructive bowel gas pattern with a small amount of stool within the ascending colon. There is a 0.3 cm right renal cyst. Electronically authenticated by: KRIS CASTORENA Date: 05/11/2024 04:09 Discharge Plan Discharge Chief Complaint: Abdominal Pain Clinical Impression: Colitis, Bright red rectal bleeding Patient Disposition: Admitted as Observation Discharge Date/Time: 05/11/24 04:48
--- OUTSIDE RECORDS SUMMARY | 2024-05-11 02:13 | XMS_ITS | CCD ---
Author Organization [facility] Care Team Providers Care Route Agent Name Role Phone DR RAKESH LUNDBERG Primary [...] DR CAMERON Consulting Unavailable Mirta Chacko Unavailable Rkaesh Lundberg MD Primary Care Provider RAKESH LUNDBERG Primary Care Unavailable RAJ DENNISON Attending Unavailable DAVE ORTEGA Attending Unavailable Allergies Allergy Classification Reported Allergen(s) Allergy Type Date of Onset Reaction(s) Facility (2 sources) Codeine; Translations: [CODEINE] Drug Allergy 4 [facility] Repository (1 source) diphenhydrAMINE Drug Allergy 6 [facility] (1 source) Erythromycin Drug Allergy 4 [facility] (1 source) Penicillins Drug allergy (disorder) 4 [facility] (1 source) Penicillin Drug Allergy rash [employer] Other (2 sources) Amoxicillin; Translations: [AMOXICILLIN] Drug Allergy 3 [facility] (1 source) Codeine Drug Allergy 4 Anxiety [facility] Work Phone: Medications Current Medications Medication Drug [...] unspecified; Translations: [HYPERLIPIDEMIA UNSPECIFIED] Onset: 08-09-2022 Chronic Malaise and fatigue (1 source) Other fatigue; Translations: [OTHER FATIGUE] Onset: 08-09-2022 Episodic Nutritional deficiencies (1 source) Vitamin D deficiency, unspecified; Translations: [VITAMIN D DEFICIENCY UNSPECIFIED] Onset: 08-09-2022 Chronic Other injuries and conditions due to external causes (1 source) Closed injury of head; Translations: [Unspecified injury of head, initial encounter] 08-07-2023 Episodic Sprains and strains (1 source) [...] Problem Classification Problem Date Documented Date Episodic/Chronic E Codes: Fall (3 sources) Fall; Translations: [Unspecified fall, initial encounter] Onset: 08-07-2023 08-07-2023 Episodic Immunizations and screening for infectious disease (1 source) Encounter for screening for human papillomavirus (HPV); Translations: [ENC SCREENING HUMAN PAPILLOMAVIRUS] Onset: 11-16-2021 Episodic Other circulatory disease (1 source) Other specified symptoms and signs involving the circulatory and respiratory systems; Translations: [OTH SPEC SX SIGNS INVLV CIRC RS] Onset: 01-06-2022 Episodic Other injuries and conditions due to external causes (2 sources) Unspecified injury of head, initial encounter; Translations: [Unspecified injury of head, initial encounter] Onset: 08-07-2023 Episodic Other screening for suspected conditions (not [...] l (Bld)on 08-07-2023 Basophils (Bld) [#/Vol] 0.03 10*3/uL [facility] Basophils/100 WBC (Bld) 0.4 % 0.0 - 2.0 % [facility] Eosinophils (Bld) [#/Vol] 0.06 10*3/uL [facility] Eosinophils/100 WBC (Bld) 0.9 % 0.0 - 6.0 % [facility] Erythrocyte distribution width (RBC) [Ratio] 13.2 % 11.5 - 14.5 % [facility] Hematocrit (Bld) [Volume fraction] 41.6 % 36.0 - 46.0 % [facility] Hemoglobin (Bld) [Mass/Vol] 13.8 g/dL 12.0 - 16.0 g/dL [facility] Immature granulocytes (Bld) [#/Vol] 0.07 10*3/uL [facility] Immature granulocytes/100 WBC (Bld) 1.0 % High 0.0 - 0.9 % [facility] Comment on above: Immature Granulocyte Count (IG) includes promyelocytes, myelocytes and metamyelocytes but does not include bands. Percent differential counts (%) should be interpreted in the context of the absolute cell counts (cells/UL). Interpretation and review of laboratory results Abnormal [facility] Lymphocytes (Bld) [#/Vol] 2.17 10*3/uL [facility] Lymphocytes/100 WBC (Bld) 32.1 % 13.0 - 44.0 % [facility] MCH (RBC) [Entitic mass] 29.6 pg 26.0 - 34.0 pg [facility] MCHC (RBC) [Mass/Vol] 33.2 g/dL 32.0 - 36.0 g/dL [facility] MCV (RBC) [Entitic vol] 89 fL 80 - 100 fL [facility] Monocytes (Bld) [#/Vol] 0.32 10*3/uL [facility] Monocytes/100 WBC (Bld) 4.7 % 2.0 - 10.0 % [facility] Neutrophils (Bld) [#/Vol] 4.12 10*3/uL [facility] Comment on above: Percent differential counts (%) should be interpreted in the context of the absolute cell counts (cells/uL). Neutrophils/100 WBC (Bld) 60.9 % 40.0 - 80.0 % [facility] Nucleated RBC/100 WBC (Bld) [Ratio] 0.0 % [facility] Platelets (Bld) [#/Vol] 234 10*3/uL [facility] RBC (Bld) [#/Vol] 4.66 10*6/uL [facility] WBC (Bld) [#/Vol] 6.8 10*3/uL [facility] Basophils (Bld) [#/Vol] 0.03 x10*3/uL Normal 0.00-0.10 [facility] Comment on above: Performed By: #### 5 7021-8 #### MIK FREITAS ([id number]) [facility] ([facility] [address] [place] [address] Basophils/100 WBC (Bld) 0.4 % Normal 0.0-2.0 [facility] Comment on above: Performed By: #### 5 7021-8 #### MIK FREITAS ([id number]) [facility] ([facility]) [id number] [place] [address] Eosinophils (Bld) [#/Vol] 0.06 x10*3/uL Normal 0.00-0.70 [facility] Comment on above: Performed By: #### 5 7021-8 #### MIK FREITAS ([id number]) [facility] ([facility]) [address] [place] [address] Eosinophils/100 WBC (Bld) 0.9 % Normal 0.0-6.0 [facility] Comment on above: Performed By: #### 5 7021-8 #### MIK FREITAS ([id number]) [facility] ([facility]) [address] [place] [address] Erythrocyte distribution width (RBC) [Ratio] 13.2 % Normal 11.5-14.5 [facility] Comment on above: Performed By: #### 5 7021-8 #### MIK FREITAS ([id number]) [facility] ([facility]) [address] [place] [address] Hematocrit (Bld) [Volume fraction] 41.6 % Normal 36.0-46.0 [facility] Comment on above: Performed By: #### 5 7021-8 #### MIK FREITAS ([id number]) [facility] ([facility]) [address] [place] [address] Hemoglobin (Bld) [Mass/Vol] 13.8 g/dL Normal 12.0-16.0 [facility] Comment on above: Performed By: #### 5 7021-8 #### MIK FREITAS ([id number]) [facility] ([facility]) [address] [place] [address] Immature granulocytes (Bld) [#/Vol] 0.07 x10*3/uL Normal 0.00-0.70 [facility] Comment on above: Performed By: #### 5 7021-8 #### MIK FREITAS ([id number]) [facility] ([facility]) [address] [place] [address] Immature granulocytes/100 WBC (Bld) 1.0 % High 0.0-0.9 [facility] Comment on above: Result Comment: Azul ture Granulocyte Count (IG) includes promyelocytes, myelocytes and metamyelocytes but does not include bands. Percent differential counts (%) should be interpreted in the context of the absolute cell counts (cells/UL). Performed By: #### 5 7021-8 #### MIK FREITAS ([id number]) [facility] ([facility]) [address] [place] [address] Lymphocytes (Bld) [#/Vol] 2.17 x10*3/uL Normal 1.20-4.80 [facility] Comment on above: Performed By: #### 5 7021-8 #### MIK FREITAS ([id number]) [facility] ([facility]) [address] [place] [address] Lymphocytes/100 WBC (Bld) 32.1 % Normal 13.0-44.0 [facility] Comment on above: Performed By: #### 5 7021-8 #### MIK FREITAS ([id number]) [facility] ([facility]) [address] [place] [address] MCH (RBC) [Entitic mass] 29.6 pg Normal 26.0-34.0 [facility] Comment on above: Performed By: #### 5 7021-8 #### MIK FREITAS ([id number]) [facility] ([facility]) [address] [place] [address] MCHC (RBC) [Mass/Vol] 33.2 g/dL Normal 32.0-36.0 [facility] Comment on above: Performed By: #### 5 7021-8 #### MIK FREITAS ([id number]) [facility] ([facility]) [address] [place] [address] MCV (RBC) [Entitic vol] 89 fL Normal 80-100 [facility] Comment on above: Performed By: #### 5 7021-8 #### MIK FREITAS ([id number]) [facility] ([facility]) [address] [place] [address] Monocytes (Bld) [#/Vol] 0.32 x10*3/uL Normal 0.10-1.00 [facility] Comment on above: Performed By: #### 5 7021-8 #### MIK FREITAS ([id number]) [facility] ([facility]) [address] [place] [address] Monocytes/100 WBC (Bld) 4.7 % Normal 2.0-10.0 [facility] Comment on above: Performed By: #### 5 7021-8 #### MIK FREITAS ([id number]) [facility] ([facility]) [address] [place] [address] Neutrophils (Bld) [#/Vol] 4.12 x10*3/uL Normal 1.20-7.70 [facility] Comment on above: Result Comment: Perc ent differential counts (%) should be interpreted in the context of the absolute cell counts (cells/uL). Performed By: #### 5 7021-8 #### MIK FREITAS ([id number]) [facility] ([facility]) [address] [place] [address] Neutrophils/100 WBC (Bld) 60.9 % Normal 40.0-80.0 [facility] Comment on above: Performed By: #### 5 7021-8 #### MIK FREITAS ([id number]) [facility] ([facility]) [address] [place] [address] Nucleated RBC/100 WBC (Bld) [Ratio] 0.0 /100 WBCs Normal 0.0-0.0 [facility] Comment on above: Performed By: #### 5 7021-8 #### MIK FREITAS ([id number]) [facility] ([facility]) [address] [place] [address] Platelets (Bld) [#/Vol] 234 x10*3/uL Normal 150-450 [facility] Comment on above: Performed By: #### 5 7021-8 #### MIK FREITAS ([id number]) [facility] ([facility]) [address] [place] [address] RBC (Bld) [#/Vol] 4.66 x10*6/uL Normal 4.00-5.20 [facility] Comment on above: Performed By: #### 5 7021-8 #### MIK FREITAS ([id number]) [facility] ([facility]) [address] [place] [address] WBC (Bld) [#/Vol] 6.8 x10*3/uL Normal 4.4-11.3 [facility] Comment on above: Performed By: #### 5 7021-8 #### MIK FREITAS ([id number]) [facility] ([facility]) [address] [place] [address] CT [facility]ERVICAL SPINE WO IV CONTRAST Interpreted By: Willy Anderson, STUDY: CT CERVICAL SPINE WO IV CONTRAST; 08/07/2023 9:01 am INDICATION: Signs/Symptoms:Mechan ical fall, no thinners, positive LOC. COMPARISON: None. ACCESSION NUMBER(S): [id number] ORDERING CLINICIAN: DIMPLE MADRID TECHNIQUE: Axial CT [...] Willy Anderson 08/07/2023 9:41 AM Dictation workstation: [id number] [facility] CT Cervical spine WO contras ton 08-07-2023 No evidence for an acute fracture or subluxation of the cervical spine. MACRO: None Signed by: Willy Anderson 08/07/2023 9:41 AM Dictation workstation: [id number] [facility] Interpreted By: Willy Anderson, STUDY: CT CERVICAL SPINE WO IV CONTRAST; 08/07/2023 9:01 am INDICATION: Signs/Symptoms:Mechan ical fall, no thinners, positive LOC. COMPARISON: None. ACCESSION NUMBER(S): [id number] ORDERING CLINICIAN: DIMPLE MADRID TECHNIQUE: Axial CT [...] thinners, positive LOC. COMPARISON: None. ACCESSION NUMBER(S): [id number] ORDERING CLINICIAN: DIMPLE MADRID TECHNIQUE: Axial CT [...] Willy Anderson 08/07/2023 9:41 AM Dictation workstation: [id number] [facility] Work Phone: [facility] Work Phone: CT HEAD WO IV CONTRASTon CT HEAD WO IV CONTRAST Interpreted By: Willy Anderson, STUDY: CT HEAD WO IV CONTRAST; 08/07/2023 9:01 am INDICATION: Signs/Symptoms:Mechan ical fall, no thinners, positive LOC. COMPARISON: None. ACCESSION NUMBER(S): [id number] ORDERING CLINICIAN: DIMPLE MADRID TECHNIQUE: Noncontrast axial [...] Willy Anderson 08/07/2023 9:38 AM Dictation workstation: [id number] [facility] CT Head WO contraston 2023 No acute intracrania l hemorrhage, mass effect, or calvarial fracture. MACRO: None Signed by: Willy Anderson 08/07/2023 9:38 AM Dictation workstation: [id number] [facility] Interpreted By: Willy Anderson, STUDY: CT HEAD WO IV CONTRAST; 08/07/2023 9:01 am INDICATION: Signs/Symptoms:Mechan ical fall, no thinners, positive LOC. COMPARISON: None. ACCESSION NUMBER(S): [id number] ORDERING CLINICIAN: DIMPLE AMDRID TECHNIQUE: Noncontrast axial CT scan of head [...] Mastoids: Clear. Orbits: Normal. Soft tissues: Unremarkable. [facility] Willy Anderson MD - 08/07/2023 Interpreted By: Willy Anderson, STUDY: CT HEAD WO IV CONTRAST; 08/07/2023 9:01 am INDICATION: Signs/Symptoms:Mechan ical fall, no thinners, positive LOC. COMPARISON: None. ACCESSION NUMBER(S): [id number] ORDERING CLINICIAN: DIMPLE MADRID TECHNIQUE: Noncontrast axial [...] Willy Anderson 08/07/2023 9:38 AM Dictation workstation: [id number] [facility] Work Phone: CT Head WO contrastOrdered B y: Willy Anderson on 08-07-2023 [facility] Work Phone: CT THORACIC SPINE WO IV CONT RASTon 08-07-2023 CT THORACIC SPINE WO IV CONTRAST Interpreted By: Willy Anderson, STUDY: CT THORACIC SPINE WO IV CONTRAST; 08/07/2023 9:01 am INDICATION: Signs/Symptoms:Mechan ical fall, no thinners, positive LOC, thoracic spinal tenderness. COMPARISON: None. ACCESSION NUMBER(S): [id number] ORDERING CLINICIAN: DIMPLE MADRID TECHNIQUE: Axial CT [...] Willy Anderson 08/07/2023 9:48 AM Dictation workstation: [id number] [facility] CT Thoracic spine WO contras ton 08-07-2023 No acute osseous abnormality of the thoracic spine. Mild chronic appearing anterior wedging of a few scattered thoracic vertebral bodies as above. MACRO: None Signed by: Willy Anderson 08/07/2023 9:48 AM Dictation workstation: [id number] [facility] Interpreted By: Willy Anderson, STUDY: CT THORACIC SPINE WO IV CONTRAST; 08/07/2023 9:01 am INDICATION: Signs/Symptoms:Mechan ical fall, no thinners, positive LOC, thoracic spinal tenderness. COMPARISON: None. ACCESSION NUMBER(S): [id number] ORDERING CLINICIAN: DIMPLE MADRID TECHNIQUE: Axial CT [...] thoracic spinal tenderness. COMPARISON: None. ACCESSION NUMBER(S): [id number] ORDERING CLINICIAN: DIMPLE MADRID TECHNIQUE: Axial CT [...] Willy Anderson 08/07/2023 9:48 AM Dictation workstation: [id number] [facility] Work Phone: [facility] Work Phone: Coagulation tissue factor in ducedon 08-07-2023 PT Coag (PPP) [Time] 11.1 s Normal 9.8-12.8 [facility] Comment on above: Performed By: #### 5 902-2 #### MIK FREITAS ([id number]) [facility] ([facility]) [address] [place] [address] Comprehensive metabolic 2000 panelon 08-07-2023 Albumin BCP dye [Mass/Vol] 4.7 g/dL 3.4 - 5.0 g/dL [facility] ALP [Catalytic activity/Vol] 61 U/L 33 - 110 U/L [facility] ALT With P-5'-P [Catalytic activity/Vol] 27 U/L 7 - 45 U/L [facility] Comment on above: Patients treated wit h Sulfasalazine may generate falsely decreased results for ALT. Anion gap [Moles/Vol] 11 mmol/L 10 - 20 mmol/L [facility] AST With P-5'-P [Catalytic activity/Vol] 23 U/L 9 - 39 U/L [facility] Bilirubin [Mass/Vol] 0.5 mg/dL 0.0 - 1 .2 mg/dL [facility] Calcium [Mass/Vol] 9.4 mg/dL 8.6 - 10. 3 mg/dL [facility] Chloride [Moles/Vol] 101 mmol/L 98 - 10 7 mmol/L [facility] CO2 [Moles/Vol] 28 mmol/L 21 - 32 mmol/L Unive [facility] Creatinine [Mass/Vol] 0.75 mg/dL 0.50 - 1.05 mg/dL [facility] eGFR - PINF [facility] Comment on above: Calculations of danielle mated GFR are performed using the 2020 CKD-EPI Study Refit equation without the race variable for the IDMS-Traceable creatinine methods. https://jasn.asnjournals.org/content/early//ASN.7801370 988 Glucose [Mass/Vol] 108 mg/dL High 74 - 99 mg/dL [facility] Interpretation and review of laboratory results Abnormal [facility] Potassium [Moles/Vol] 3.8 mmol/L 3.5 - 5.3 mmol/L [facility] Protein [Mass/Vol] 7.8 g/dL 6.4 - 8.2 g/dL [facility] Sodium [Moles/Vol] 136 mmol/L 136 - 145 mmol/L [facility] Urea nitrogen [Mass/Vol] 13 mg/dL 6 - 23 mg/dL [facility] Albumin BCP dye [Mass/Vol] 4.7 g/dL Normal 3.4-5.0 [facility] Comment on above: Performed By: #### 2 4323-8 #### MIK FREITAS ([id number]) [facility] ([facility]) [address] [place] [address] ALP [Catalytic activity/Vol] 61 U/L Normal 33-110 [facility] Comment on above: Performed By: #### 2 4323-8 #### MIK FREITAS ([id number]) [facility] ([facility]) [address] [place] [address] ALT With P-5'-P [Catalytic activity/Vol] 27 U/L Normal 7-45 [facility] Comment on above: Result Comment: [place] ents treated with Sulfasalazine may generate falsely decreased results for ALT. Performed By: #### 2 4323-8 #### MIK FREITAS ([id number]) [facility] ([facility]) [address] [facility] [address] Anion gap [Moles/Vol] 11 mmol/L Normal 10-20 [facility] Comment on above: Performed By: #### 2 4323-8 #### MIK FREITAS ([id number]) [facility] ([facility]) [address] [facility] [address] AST With P-5'-P [Catalytic activity/Vol] 23 U/L Normal 9-39 [facility] Comment on above: Performed By: #### 2 4323-8 #### MIK FREITAS ([id number]) [facility] ([facility]) [address] [facility] [address] Bilirubin [Mass/Vol] 0.5 mg/dL Normal 0.0-1.2 [facility] Comment on above: Performed By: #### 2 4323-8 #### MIK FREITAS ([id number]) [facility] ([facility]) [address] [place] [address] Calcium [Mass/Vol] 9.4 mg/dL Normal 8.6-10.3 [facility] Comment on above: Performed By: #### 2 4323-8 #### MIK FREITAS ([id number]) [facility] ([facility]) [address] [facility] [address] Chloride [Moles/Vol] 101 mmol/L Normal 98-107 [facility] Comment on above: Performed By: #### 2 4323-8 #### MIK FREITAS ([id number]) [facility] ([facility]) [address] [facility] [address] CO2 [Moles/Vol] 28 mmol/L Normal 21-32 [facility] Comment on above: Performed By: #### 2 4323-8 #### MIK FREITAS ([id number]) [facility] ([facility]) [address] [facility] [address] Creatinine [Mass/Vol] 0.75 mg/dL Normal 0.50-1.05 [facility] Comment on above: Performed By: #### 2 4323-8 #### MIK FREITAS ([id number]) [facility] ([facility]) [address] [place] [address] GFR/1.73 sq M.predicted MDRD (S/P/Bld) [Vol rate/Area] mL/min/{1.73_m2} Normal >60 [facility] Comment on above: Result Comment: Calc ulations of estimated GFR are performed using the 2020 CKD-EPI Study Refit equation without the race variable for the IDMS-Traceable creatinine methods. https://jasn.asnjournals.org/content/early/ASN.0787821 988 Performed By: #### 2 4323-8 #### MIK FREITAS ([id number]) [facility] ([facility]) [address] [place] [address] Glucose [Mass/Vol] 108 mg/dL High 74-99 [facility] Comment on above: Performed By: #### 2 4323-8 #### MIK FREITAS ([id number]) [facility] ([facility]) [address] [place] [address] Potassium [Moles/Vol] 3.8 mmol/L Normal 3.5-5.3 [facility] Comment on above: Performed By: #### 2 4323-8 #### MIK FRETIAS ([id number]) [facility] ([facility]) [address] [place] [address] Protein [Mass/Vol] 7.8 g/dL Normal 6.4-8.2 [facility] Comment on above: Performed By: #### 2 4323-8 #### MIK FREITAS ([id number]) [facility] ([facility]) [address] [place] [address] Sodium [Moles/Vol] 136 mmol/L Normal 136-145 [facility] Comment on above: Performed By: #### 2 4323-8 #### MIK FREITAS ([id number]) [facility] ([facility]) [address] [place] [id number] Urea nitrogen [Mass/Vol] 13 mg/dL Normal - [facility] Comment on above: Performed By: #### 2 4323-8 #### MIK FREITAS ([id number]) [facility] ([facility]) [address] [place] [address] ECG 12-LEADon 08-07-2023 ECG 12-LEAD Ventricular Rate 73 Atrial Rate 73 P-R Interval 168 QRS Duration 70 Q-T Interval 392 QTC Calculation(Bazett) 431 P [place] 32 R [place] 43 T [place] 24 QRS Count 12 Q Onset 225 P Onset 141 P Offset 194 T Offset 421 QTC Fredericia 418 Diagnosis Normal sinus rhythm Septal infarct , age undetermined Abnormal ECG No previous ECGs available Confirmed by Josie Anthony ([id number]) on 08/29/2023 9:59:19 PM Normal [facility] No Panel Informationon 08-07 Radiology Study observation (narrative) [facility] Work Phone: PT Coag (PPP) [Time]on 08-07 INR Coag (PPP) [Relative time] 1.0 {INR} 0.9 - 1.1 [facility] Interpretation and review of laboratory results Normal [facility] INR Coag (PPP) [Relative time] 1.0 Normal 0.9-1.1 [facility] Comment on above: Performed By: #### 5 902-2 #### MIK FREITAS ([id number]) [facility] ([facility]) [address] [place] [id number] Protime-INRon 08-07-2023 PT Coag (PPP) [Time] 11.1 s [facility] CBC AUTO DIFFon 08-08-2022 BASO # 0.0 103/ul Normal 0.0-0.1 [facility] Comment on above: Performed By: #### C BC #### [facility] [address] [place] [address] Dr. Enrique Parkinson Basophils/100 WBC (Bld) 0.6 % Normal 0.2-2.0 [facility] Comment on above: Performed By: #### C BC #### [facility] [address] [place] [address] Dr. Enrique Parkinson EO # 0.1 103/ul Normal 0.0-0.7 [facility] Comment on above: Performed By: #### C BC #### [facility] [address] [place] [address] Dr. Enrique Parkinson Eosinophils/100 WBC (Bld) 0.9 % Normal 0.9-7.0 [facility] Comment on above: Performed By: #### C BC #### [facility] [address] [place] [address] Dr. Enrique Parkinson Erythrocyte distribution width (RBC) [Ratio] 12.9 % Normal 11.0-15.0 [facility] Comment on above: Performed By: #### C BC #### [facility] [address] [place] [address] Dr. Enrique Parkinson Hematocrit (Bld) [Volume fraction] 41.5 % Normal 36.0-48.0 [facility] Comment on above: Performed By: #### C BC #### [facility] [address] [place] [address] Dr. Enrique Parkinson Hemoglobin (Bld) [Mass/Vol] 14.3 g/dL Normal 12.0-16.0 [facility] Comment on above: Performed By: #### C BC #### [facility] [address] [place] [address] Dr. Enrique Parkinson IG # 0.02 10e3/ul Normal 0.00-0.03 [facility] Comment on above: Performed By: #### C BC #### [facility] [address] [place] [address] Dr. Enrique Parkinson IG % 0.3 % Normal 0.0-0.5 [facility] Comment on above: Performed By: #### C BC #### [facility] [address] [place] [address] Dr. Enrique Parkinson LYMPH # 1.8 103/ul Normal 1.2-3.8 [facility] Comment on above: Performed By: #### C BC #### [facility] [address] [place] [address] Dr. Enrique Parkinson Lymphocytes/100 WBC (Bld) 25.9 % Normal 20.5-60.0 [facility] Comment on above: Performed By: #### C BC #### [facility] [address] [place] [address] Dr. Enrique Parkinson MANUAL DIFF REQ NO Normal [facility] Comment on above: Performed By: #### C BC #### [facility] [address] [place] [address] Dr. Enrique Parkinson MCH (RBC) [Entitic mass] 30.2 pg Normal 26.7-34.0 [facility] Comment on above: Performed By: #### C BC #### [facility] [address] [place] [address] Dr. Enrique Parkinson MCHC (RBC) [Mass/Vol] 34.5 g/dL Normal 29.9-35.2 [facility] Comment on above: Performed By: #### C BC #### [facility] [address] [place] [address] Dr. Enrique Parkinson MCV (RBC) [Entitic vol] 87.6 fL Normal 81.0-99.0 [facility] Comment on above: Performed By: #### C BC #### [facility] [address] [place] [address] Dr. Enrique Parkinson MONO # 0.4 103/ul Normal 0.3-0.8 [facility] Comment on above: Performed By: #### C BC #### [facility] [address] [place] [address] Dr. Enrique Parkinson Monocytes/100 WBC (Bld) 5.1 % Normal 1.7-12.0 [facility] Comment on above: Performed By: #### C BC #### [facility] [address] [address] [address] Enrique Parkinson NEUT # 4.6 103/ul Normal 1.4-6.5 [facility] Comment on above: Performed By: #### C BC #### [facility] [address] [place] [address] Dr. Enrique Parkinson Neutrophils/100 WBC (Bld) 67.2 % Normal 43.0-75.0 [facility] Comment on above: Performed By: #### C BC #### [facility] [address] [place] [address] Dr. Enrique Parkinson Platelet mean volume (Bld) [Entitic vol] 9.2 fL Critically low 9.5-13.5 [facility] Comment on above: Performed By: #### C BC #### [facility] [address] [place] [address] Dr. Enrique Parkinson PLT 246 103/ul Normal 150-450 [facility] Comment on above: Performed By: #### C BC #### [facility] [address] [place] [address] Dr. Enrique Parkinson RBC 4.74 106/ul Normal 4.20-5.40 [facility] Comment on above: Performed By: #### C BC #### [facility] [address] [address] [address] Enrique Parkinson WBC 6.9 103/ul Normal 4.0-11.0 [facility] Comment on above: Performed By: #### C BC #### [facility] [address] [place] [address] Dr. Enrique Parkinson FREE T3on 08-08-2022 FREE T3 2.43 pg/mlL Normal 2.18-3.98 [facility] Comment on above: Performed By: #### T 4, TSH, LIPID, CMP, FT3 #### [facility] [address] [place] [address] Dr. Enrique Parkinson GLYCOHEMOGLOBIN A1Con 2022 ADA RECOMMENDATION SEE BELOW Normal [facility] Comment on above: Result Comment: ADA RECOMMENDED LIMIT 4.0 - 6.0 ADA THERAPEUTIC TARGET < 7.0 ACTION SUGGESTED > 7.0 Performed By: #### A 1C #### [facility] [address] [address] [address] Enrique Parkinson Glucose [Mass/Vol] 114 mg/dL Normal [facility] Comment on above: Performed By: #### A 1C #### [facility] [address] [address] [address] Enrique Parkinson HbA1c (Bld) [Mass fraction] 5.6 % Normal 4.5-6.2 [facility] Comment on above: Performed By: #### A 1C #### [facility] [address] [place] [address] Dr. Enrique Parkinson LIPID PROFILEon 08-08-2022 CHOL-HDL RATIO NORM SEE BELOW Normal [facility] Comment on above: Result Comment: 3.3 - 4.4 LOW RISK 4.4 - 7.1 AVERAGE RISK 7.1 - 11.0 MODERATE RISK >11.0 HIGH RISK Performed By: #### T 4, TSH, LIPID, CMP, FT3 #### [facility] [address] [place] [address] Dr. Enrique Parkinson Cholesterol [Mass/Vol] 241 mg/dL Critically high <=200 [facility] Comment on above: Performed By: #### T 4, TSH, LIPID, CMP, FT3 #### [facility] [address] [place] [address] Dr. Enrique Parkinson Cholesterol in HDL [Mass/Vol] 45 mg/dL Normal 40-60 [facility] Comment on above: Performed By: #### T 4, TSH, LIPID, CMP, FT3 #### [facility] [address] [address] [address] Enrique Parkinson Cholesterol in LDL [Mass/Vol] 131.2 mg/dL Normal [facility] Comment on above: Performed By: #### T 4, TSH, LIPID, CMP, FT3 #### [facility] [address] [place] [address] Dr. Enrique Parkinson Cholesterol.total/Ch olesterol in HDL [Mass ratio] 5.4 {ratio} Normal [facility] Comment on above: Performed By: #### T 4, TSH, LIPID, CMP, FT3 #### [facility] [address] [address] [address] Enrique Parkinson HDL NORMAL > or = 60 mg/dl - LO W CARDIOVASCULAR RISK <40 mg/dl - HIGH CARDIOVASCULAR RISK Normal [facility] Comment on above: Performed By: #### T 4, TSH, LIPID, CMP, FT3 #### [facility] [address] [address] [address] Enrique Parkinson LDL CALC NORMAL SEE BELOW Normal [facility] Comment on above: Result Comment: <100 mg/dl OPTIMAL 100 - 129 mg/dl NEAR OR ABOVE OPTIMAL 130 - 159 mg/dl BORDERLINE HIGH 160 - 189 mg/dl HIGH >190 mg/dl VERY HIGH Performed By: #### T 4, TSH, LIPID, CMP, FT3 #### [facility] [address] [address] [address] Enrique Parkinson Triglyceride [Mass/Vol] 324 mg/dL Critically high <=150 [facility] Comment on above: Performed By: #### T 4, TSH, LIPID, CMP, FT3 #### [facility] [address] [address] [address] Enrique Parkinson VLDL CALC 64.8 mg/dL Normal [facility] Comment on above: Performed By: #### T 4, TSH, LIPID, CMP, FT3 #### [facility] [address] [place] [address] Dr. Enrique Parkinson PROF 14(COMP METB)on 023 Albumin [Mass/Vol] 4.1 g/dL Normal 3.4-5.0 [facility] Comment on above: Performed By: #### T 4, TSH, LIPID, CMP, FT3 #### [facility] [address] [address] [address] Enrique Parkinson Albumin/Globulin [Mass ratio] 1.1 {ratio} Normal [facility] Comment on above: Performed By: #### T 4, TSH, LIPID, CMP, FT3 #### [facility] [address] [address] [address] Enrique Parkinson ALP [Catalytic activity/Vol] 83 U/L Normal 46-116 [facility] Comment on above: Performed By: #### T 4, TSH, LIPID, CMP, FT3 #### [facility] [address] [place] [address] Dr. Enrique Parkinson ALT [Catalytic activity/Vol] 28 U/L Normal 14-59 [facility] Comment on above: Performed By: #### T 4, TSH, LIPID, CMP, FT3 #### [facility] [address] [place] [address] Dr. Enrique Parkinson Anion gap [Moles/Vol] 12.3 mmol/L Normal [facility] Comment on above: Performed By: #### T 4, TSH, LIPID, CMP, FT3 #### [facility] [address] [place] [address] Dr. Enrique Parkinson AST [Catalytic activity/Vol] 20 U/L Normal 15-37 [facility] Comment on above: Performed By: #### T 4, TSH, LIPID, CMP, FT3 #### [facility] [address] [place] [address] Dr. Enrique Parkinson Bilirubin [Mass/Vol] 0.4 mg/dL Normal 0.2-1.0 [facility] Comment on above: Performed By: #### T 4, TSH, LIPID, CMP, FT3 #### [facility] [address] [place] [address] Dr. Enrique Parkinson Calcium [Mass/Vol] 9.2 mg/dL Normal 8.5-10.1 [facility] Comment on above: Performed By: #### T 4, TSH, LIPID, CMP, FT3 #### [facility] [address] [place] [address] Dr. Enrique Parkinson Chloride [Moles/Vol] 101 mmol/L Normal 98-107 [facility] Comment on above: Performed By: #### T 4, TSH, LIPID, CMP, FT3 #### [facility] [address] [place] [address] Dr. Enrique Parkinson CO2 [Moles/Vol] 29.4 mmol/L Normal 21.0-32.0 [facility] Comment on above: Performed By: #### T 4, TSH, LIPID, CMP, FT3 #### [facility] [address] [address] [address] Enrique Parkinson Creatinine [Mass/Vol] 0.80 mg/dL Normal 0.55-1.02 [facility] Comment on above: Performed By: #### T 4, TSH, LIPID, CMP, FT3 #### [facility] [address] [place] [address] Dr. Enrique Parkinson EGFR-AF VINCENTIAN >60 Normal >=60 [facility] Comment on above: Performed By: #### T 4, TSH, LIPID, CMP, FT3 #### [facility] [address] [place] [address] Dr. Enrique Parkinson EGFR-NON AF VINCENTIAN >60 Normal >=60 [facility] Comment on above: Performed By: #### T 4, TSH, LIPID, CMP, FT3 #### [facility] [address] [place] [address] Dr. Enrique Parkinson Globulin (S) [Mass/Vol] 3.8 g/dL Normal [facility] Comment on above: Performed By: #### T 4, TSH, LIPID, CMP, FT3 #### [facility] [address] [place] [address] Dr. Enrique Parkinson Glucose [Mass/Vol] 111 mg/dL Critically high 74-106 [facility] Comment on above: Performed By: #### T 4, TSH, LIPID, CMP, FT3 #### [facility] [address] [place] [address] Dr. Enrique Parkinson Potassium [Moles/Vol] 3.7 mmol/L Normal 3.5-5.1 [facility] Comment on above: Performed By: #### T 4, TSH, LIPID, CMP, FT3 #### [facility] [address] [place] [address] Dr. Enrique Parkinson Protein [Mass/Vol] 7.9 g/dL Normal 6.4-8.2 [facility] Comment on above: Performed By: #### T 4, TSH, LIPID, CMP, FT3 #### [facility] [address] [address] [address] Enrique Parkinson Sodium [Moles/Vol] 139 mmol/L Normal 136-145 [facility] Comment on above: Performed By: #### T 4, TSH, LIPID, CMP, FT3 #### [facility] [address] [place] [address] Dr. Enrique Parkinson Urea nitrogen [Mass/Vol] 15.0 mg/dL Normal 7.0-18.0 [facility] Comment on above: Performed By: #### T 4, TSH, LIPID, CMP, FT3 #### [facility] [address] [place] [address] Dr. Enrique Parkinson Urea nitrogen/Creatinine [Mass ratio] 18.8 mg/mg Normal [facility] Comment on above: Performed By: #### T 4, TSH, LIPID, CMP, FT3 #### [facility] [address] [place] [address] Dr. Enrique Parkinson T4on 08-08-2022 T4 [Mass/Vol] 10.30 ug/dL Normal 4.80-13.90 [facility] Comment on above: Performed By: #### T 4, TSH, LIPID, CMP, FT3 #### [facility] [address] [place] [address] Dr. Enrique Parkinson TSHon 08-08-2022 TSH 0.847 uIU/mL Normal 0.358-3.740 [facility] Comment on above: Performed By: #### T 4, TSH, LIPID, CMP, FT3 #### [facility] [address] [place] [address] Dr. Enrique Parkinson VITAMIN D 25 OHon 08-08-2022 VIT D 25-OH 35.8 ng/mL Normal [facility] Comment on above: Performed By: #### V ITAD #### [facility] [address] [place] [address] Dr. Enrique Parkinson VIT D RANGES SEE BELOW Normal [facility] Comment on above: Result Comment: <20 ng/mL Vit D deficient 20 - <30 ng/mL Vit D insufficient 30 - 100 ng/mL Vit D sufficient >100 ng/mL Potential Toxicity Performed By: #### V ITAD #### [facility] [address] [place], [place] [id number] Dr. Enrique Parkinson Covid-19 PCR ([facility])on 12-15 SARS-CoV-2 (COVID-19) RNA RENATO+probe Ql (Unsp spec) Not detected Normal NOT DETECTED [facility] Comment on above: Result Comment: This test is not yet approved or cleared by the [place] FDA. When there are no FDA-approved or cleared tests available, and other criteria are met, FDA can make tests available under an emergency access mechanism called an Emergency Use Authorization (EUA). The EUA for this test is supported by the [place] of Health and Human Service's (HHS's) declaration [...] consistent with SARS-CoV-2. Performed By: #### C VDTBH #### [facility] [address] [place] [address] [id number] [address] Enrique Parkinson SYMPTOMATIC COVID-19 ANTIGEN on 01-04-2022 EUA Statement SEE BELOW Normal [facility] Comment on above: Result Comment: This test [...] sooner. Performed By: #### C VDAGS #### [facility] [address] [place] [address] Dr. Enrique Parkinson SARS-CoV-2 (COVID-19) RNA RENATO+probe Ql (Unsp spec) Negative Normal NEGATIVE [facility] Comment on above: Performed By: #### C VDAGS #### [facility] [address] [place] [address] Dr. Enrique Parkinson PAP ACOG PANEL 2: 30 to 65on 11-19-2021 . . Normal [facility] Comment on above: Result Comment: Perf ormed at: WB Performed By: #### C VDAGS #### [facility] [address] [place] [address] Dr. Enrique Parkinson Age Gdln ACOG Testing -67 [facility] Comment on above: Performed By: #### C VDAGS #### [facility] [address] [place] [address] Dr. Enrique Parkinson DIAGNOSIS: Comment Normal [facility] Comment on above: Result Comment: NEGA TIVE FOR INTRAEPITHELIAL LESION OR MALIGNANCY. Performed at: WB Performed By: #### C VDAGS #### [facility] [address] [place] [address] Dr. Enrique Parkinson HPV Aptima Negative Normal Negative [facility] Comment on above: Result Comment: This nucleic acid amplification test detects fourteen high-risk HPV types (16,18,31,33,35,39,45,51,52,56,58,59,66,68) without differentiation. Performed at: =G Performed By: #### C VDAGS #### [facility] [address] [place], [place] [id number] Dr. Enrique Parkinson Methodology: Comment Normal [facility] Comment on above: Result Comment: This liquid based ThinPrep(R) pap test was screened with the use of an image guided system. Performed at: WB Performed By: #### C VDAGS #### [facility] [address] [address] [address] Enrique Parkinson Note: Comment Normal [facility] Comment on above: Result Comment: The [...] WB Performed By: #### C VDAGS #### [facility] [address] [address] [address] Enrique Parkinson Performed by: Comment Normal [facility] Comment on above: Result Comment: Hipolito Rosenberg, Sales And Marketing Representative (ASCP) Performed at: WB Performed By: #### C VDAGS #### [facility] [address] [place] [address] Dr. Enrique Parkinson Specimen adequacy: Comment Normal [facility] Comment on above: Result Comment: Sati sfactory for evaluation. Endocervical and/or squamous metaplastic cells (endocervical component) are present. Performed at: WB Performed By: #### C VDAGS #### [facility] [address] [address] [address] Enrique Parkinson Vital Signs Date Time Vital Sign Value Performing Clinician Facility 08-07-2023 10:27-0500 Diastolic blood pressure 94 mm[Hg] [place] Dennison DO Work Phone: [facility] 08-07-2023 10:27-0500 Heart rate 77 /min [place] Dennison DO Work Phone: [facility] 08-07-2023 10:27-0500 SaO2% (BldA) [Mass fraction] 98 % [place] Dennison DO Work Phone: [facility] 08-07-2023 10:27-0500 Systolic blood pressure 140 mm[Hg] [place] Dennison DO Work Phone: [facility] 08-07-2023 08:01-0500 Body height 167.6 cm [place] Dennison DO Work Phone: [facility] 08-07-2023 08:01-0500 Body mass index (BMI) [Ratio] 29.05 kg/m2 [place] Dennison DO Work Phone: [facility] 08-07-2023 08:01-0500 Body temperature 98.1 [degF] [place] Dennison DO Work Phone: [facility] 08-07-2023 08:01-0500 Body weight 81.65 kg [place] Dennison DO Work Phone: [facility] 08-07-2023 08:01-0500 Respiratory rate 16 /min [place] Dennison DO Work Phone: [facility] 12-14-2022 14:45-0400 Body height 167.64 cm Mirta Chacko Other [employer] Other 12-14-2022 14:45-0400 Body mass index (BMI) [Ratio] 30.18 kg/m2 Mirta Chacko Other [employer] Other 12-14-2022 14:45-0400 Body temperature 97.8 [degF] Mirta Chacko Other [employer] Other 12-14-2022 14:45-0400 Body weight 84.82 kg Mirta Chacko Other [employer] Other 12-14-2022 14:45-0400 Respiratory rate 18 /min Mirta Chacko Other [employer] Other 12-14-2022 14:45-0400 SaO2% (BldA) [Mass fraction] 98 % Mirta Chacko Other [employer] Other Encounters Encounter Date Encounter Type Care Provider Facility Start: 04-16-2024 End: 04-16-2024 ambulatory DAVE ORTEGA Not Available Start: 08-07-2023 End: 08-07-2023 Emergency department patient visit Raj Dennison DO Work Phone: [facility] Comment on above: Fall, initial encoun ter (Primary Dx); Closed head injury, initial encounter Start: 12-14-2022 End: 12-14-2022 ambulatory Mirta Chacko Other [employer] Other Start: 12-14-2022 Office outpatient ne w 30 minutes Mirta Chacko [facility] Start: 08-09-2022 Encounter for genera l adult medical examination without abnormal findings DR RAKESH LUNDBERG [facility] Start: 08-08-2022 End: 08-09-[address] [...] CT CERVICAL SPINE WO IV CONTRAST RAKESH HOPennie Start: 08-07-2023 CT THORACIC SPINE WO IV CONTRAST RAKESH HOY Start: 08-07-2023 CT HEAD WO IV CONTRAST RAKESH HOY Start: 08-07-2023 ECG 12-LEAD RAKESH HO Y [...] 03-16-2023 Influenza vaccination Influenza Vacc ine (#1) [facility] Start: 05-24-2021 COVID-19 Vaccine (3 - Pfizer series) COVID-19 Vaccine (3 - Pfizer series) [facility] Start: 2017 Zoster Vaccines (1 of 2) Zoste r Vaccines (1 of 2) [facility] Start: 2007 Screening for malign ant neoplasm of breast Mammogram [facility] Start: 1989 DTaP/Tdap/Td Vaccine s (1 - Tdap) DTaP/Tdap/Td Vaccines (1 - Tdap) [facility] Start: 01-06-1988 Screening for malign ant neoplasm of cervix [facility] Start: 1985 Diabetes mellitus screening Diabetes Screening [facility] Start: 1985 Hepatitis C screening Hepatitis C Sc reening [facility] Start: 01-06-1968 MMR Vaccines (1 of 1 - Standard series) MMR Vaccines (1 of 1 - Standard series) [facility] Start: 1967 Hepatitis B Vaccines (1 of 3 - 3-dose series) Hepatitis B Vaccines (1 of 3 - 3-dose series) [facility] Start: 1967 HIV screening [facility] Start: 1967 Lipid panel Lipid Panel [facility] Start: 1967 Screening for malign ant neoplasm of colon [facility] Start: 1967 Yearly Adult Physical Yearly Adult P hysical [facility] ECG 12 lead ECG 12 lead ECG STAT 08/07/2023 8:33 AM EST [facility] Service Area Work Phone: Payers Date Payer Category Payer Unknown [id number] 2020 Unknown [employer] [facility] [id number] 2020-Present Sada Trimble [id number] [place] [address] [id number] 1967 Unknown [id number] 1967 Unknown [id number] 1967 Unknown [id number] 1967 Unknown [id number] 1967 Unknown [id number] 1967 Unknown [id number] 1967 Unknown [id number] 1959 Self-pay [id number] 1959 Unknown [id number] Social History Date Type Detail Facility Unknown if ever smoked [facility] [employer] Other Sex Assigned At [employer] Other Tobacco smoking status TXIS Tobacco smoking consumption unknown [facility] Work Phone: Start: 1965 Sex Assigned At Not on file [facility] Work Phone: Start: 07-28-2023 End: 08-07-2023 Exposure to SARS-CoV-2 (event) Not sure [facility] Work Phone: Hospital Discharge instructions 08-07-2023 Discharge [...] needed for pain. documented in this encounter [facility] Work Phone: Evaluation note 12-14-2022 Note Date [...] resolved. Patient verbalized understanding of treatment plan [employer] Other Evaluation note Note Date & Type Note Facility Evaluation note Diagnosis Fall, initial encounter- Primary Closed head injury, initial encounter documented in this encounter [facility] Work Phone: History general Narrative - Reported Note Date & Type Note Facility History general Narrative - Reported Type Medical History high blood pressure Medical History thyroid disease Surgical History C section Surgical History lobectomy Surgical History wrist surgery Surgical History bowel surgery Hospitalization History see above [employer] Other Summary Purpose Family History No Family History Records FoundNo Family History Records FoundNo Family History Records FoundNo Family History Records Found Advance Directives No Advanced Directives Records FoundNo Advanced Directives Records FoundNo Advanced Directives Records FoundNo Advanced Directives Records Found Additional Source Comments INFORMATION SOURCE (unrecogn ized section and content) DATE CREATED AUTHOR 08/14/2022 [facility] DATE CREATED AUTHOR AUTHOR'S ORGANIZ ATION 08/31/2023 [facility] DATE CREATED AUTHOR AUTHOR'S ORGANIZ ATION 04/08/2024 [facility] DATE CREATED AUTHOR AUTHOR'S ORGANIZ ATION 04/17/2024 [facility] EPIC REASON FOR VISIT (unrecogniz ed section and [...] Care Teams (unrecognized sec tion and content) Route Agent Relationship Specialty Start Date End Date Rakesh Lundberg MD [address] [place] [address] PCP - General 09/06/09 FOR RECORDS PERTAINING [...] BE BASED ON THE PRIMARY CLINICAL RECORDS. [facility]. provides no warranty or guarantee of the accuracy or completeness of information in this document.
--- NOTE | 2024-05-11 02:16 | CT_ITS ---
[facility] [address], [place] [address] Patient Name: PRAVEENA DACOSTA MRN: [id number] date: 1965 Sex: F Assigned Patient Location: ED.MAIN Current Patient Location: ER Accession/Order Number: [id number] Exam Date: 05/11/2024 03:45 Report Date: 05/11/2024 04:09 At the request of: COY HERNANDEZ Procedure: CT abdomen pelvis w con EXAM: CT abdomen pelvis w con HISTORY: abdominal pain and rectal bleed COMPARISON: None. TECHNIQUE: Routine CT abdomen/pelvis with intravenous contrast. Additional imaging of the abdomen and pelvis was then performed with oral contrast. FINDINGS: Lung bases: Mild dependent atelectasis. There is a calcified granuloma within the right lower lobe. Solid organs: The liver, gallbladder, biliary tree, pancreas, spleen and bilateral adrenal glands are unremarkable. There is mild cortical scarring and/or retained lobulation along the contour of both kidneys. There is a 0.3 cm right renal cyst. Bowel: There is circumferential thickening of the wall the colon, most pronounced along the descending and sigmoid colon with pericolonic inflammatory reaction consistent with a colitis. There is no pneumatosis or portal venous gas. There is no free air, free fluid or abscess. The bowel gas pattern is nonobstructive with a small amount of stool within the ascending colon. The appendix is unremarkable. The distal esophagus, stomach and small bowel are unremarkable. Inflammation: As described. Vasculature: Mild atheromatous calcification abdominal aorta. The IVC is unremarkable. Lymphadenopathy: There are no pathologically enlarged lymph nodes. Pelvis: The unopacified underdistended urinary bladder is unremarkable. The uterus is unremarkable. There are a few pelvic phleboliths. Osseous: Mild discogenic degenerative changes at L5-S1 and moderate facet arthritis at L4-[address]/CT abdomen pelvis w con IMPRESSION: Findings consistent with a colitis, most pronounced along the descending and sigmoid colon. There is no free air, free fluid or abscess. Nonobstructive bowel gas pattern with a small amount of stool within the ascending colon. There is a 0.3 cm right renal cyst. Electronically authenticated by: KRIS CASTORENA Date: 05/11/2024 04:09
[2024-05-11 02:25] LABS: Basophils Absolute Auto 0.1 10^3/uL (0.0-0.1); Basophils Percent Auto 0.3 % (0.2-2.0); Eosinophils Absolute Auto 0.1 10^3/uL (0.0-0.7); Eosinophils Percent Auto 0.4 % (0.9-7.0); Hematocrit 43.2 % (36.0-48.0); Hemoglobin 14.8 g/dL (12.0-16.0); Immature Granulocytes Abs Auto 0.06 10^3/uL (0.00-0.03); Immature Granulocytes Pct Auto 0.3 % (0.0-0.5); Lymphocytes Absolute Auto 1.6 10^3/uL (1.2-3.8); Lymphocytes Percent Auto 7.8 % (20.5-60.0); Mean Corpuscular HGB Conc 34.3 g/dL (29.9-35.2); Mean Corpuscular Hemoglobin 30.1 pg (26.7-34.0); Monocytes Absolute Auto 0.9 10^3/uL (0.3-0.8); Monocytes Percent Auto 4.4 % (1.7-12.0); Neutrophils Absolute Auto 17.2 10^3/uL (1.4-6.5); Neutrophils Percent Auto 86.8 % (43.0-75.0); Platelet Count 285 10^3/uL (150-450); Red Blood Count 4.91 10^6/uL (4.20-5.40); Red Cell Distribution Width 12.7 % (11.0-15.0); White Blood Count 19.8 10^3/uL (4.0-11.0)
[2024-05-11 02:37] LABS: Alanine Aminotransferase 70 U/L (14-59); Albumin Globulin Ratio 1.1; Albumin Level 3.9 g/dL (3.4-5.0); Alkaline Phosphatase 92 U/L (46-116); Anion Gap 13.7; Aspartate Amino Transferase 35 U/L (15-37); BUN Creatinine Ratio 20.2; Bilirubin Total 0.5 mg/dL (0.2-1.0); Calcium 9.3 mg/dL (8.5-10.1); Carbon Dioxide 26.2 mmol/L (21.0-32.0); Chloride 104 mmol/L (98-107); Estimated GFR (African America >60 (>=60 mL/min/1.73m^2); Estimated GFR (Non-African Ame >60 (>=60 mL/min/1.73m^2); Globulin 3.5 g/dL; Glucose 127 mg/dL (74-106); Potassium 3.9 mmol/L (3.5-5.1); Sodium 140 mmol/L (136-145); Total Protein 7.4 g/dL (6.4-8.2)
[2024-05-11] MEDS: 0.9 % SODIUM CHLORIDE 1,000 ML 999 ML IV (02:37)
[2024-05-11] MEDS: ONDANSETRON PF 4 MG/2 ML VIAL IV ×2 (02:38→08:18)
[2024-05-11] MEDS: HYDROMORPHONE HCL 1 MG/ML CARTRIDGE IVP (02:38)
[2024-05-11 02:39] LABS: Lactate/Lactic Acid 1.3 mmol/L (0.4-2.0)
[2024-05-11] MEDS: HYDROMORPHONE HCL 1 MG/ML CARTRIDGE IV ×2 (04:12→08:49)
[2024-05-11] MEDS: METRONIDAZOLE/SODIUM CHLORIDE 500 MG/100 ML PREMIX 100 MG IV ×3 (04:50→21:42)
--- OUTSIDE RECORDS SUMMARY | 2024-05-11 05:05 | XMS_ITS | CCD ---
Author Organization [facility] Care Team Providers Care Ehs Teacher Name Role Phone DR RAKESH LUNDBERG Primary [...] Codeine; Translations: [CODEINE] Drug Allergy 4 [facility] Repository (1 source) diphenhydrAMINE Drug Allergy 6 [facility] Repository (1 source) Erythromycin Drug Allergy 4 [facility] Rep[facility] (1 source) Penicillins Drug allergy (disorder) 4 [facility] Repository (1 source) Penicillin Drug Allergy rash [facility] Other (2 sources) Amoxicillin; Translations: [AMOXICILLIN] Drug Allergy 3 [facility] (1 source) Codeine Drug Allergy 4 Anxiety [facility] Work Phone: Medications Current Medications Medication Drug [...] (Bld)on 08-07-2023 Basophils (Bld) [#/Vol] 0.03 10*3/uL [facility] Basophils/100 WBC (Bld) 0.4 % 0.0 - 2.0 % [facility] Eosinophils (Bld) [#/Vol] 0.06 10*3/uL [facility] Eosinophils/100 WBC (Bld) 0.9 % 0.0 - 6.0 % [facility] Erythrocyte distribution width (RBC) [Ratio] 13.2 % 11.5 - 14.5 % [facility] Hematocrit (Bld) [Volume fraction] 41.6 % 36.0 - 46.0 % [facility] Hemoglobin (Bld) [Mass/Vol] 13.8 g/dL 12.0 - 16.0 g/dL [facility] Immature granulocytes (Bld) [#/Vol] 0.07 10*3/uL [facility] Immature granulocytes/100 WBC (Bld) 1.0 % High 0.0 - 0.9 % [facility] Comment on above: Immature Granulocyte Count (IG) includes promyelocytes, myelocytes and metamyelocytes but does not include bands. Percent differential counts (%) should be interpreted in the context of the absolute cell counts (cells/UL). Interpretation and review of laboratory results Abnormal [facility] Lymphocytes (Bld) [#/Vol] 2.17 10*3/uL [facility] Lymphocytes/100 WBC (Bld) 32.1 % 13.0 - 44.0 % [facility] MCH (RBC) [Entitic mass] 29.6 pg 26.0 - 34.0 pg [facility] MCHC (RBC) [Mass/Vol] 33.2 g/dL 32.0 - 36.0 g/dL [facility] MCV (RBC) [Entitic vol] 89 fL 80 - 100 fL [facility] Monocytes (Bld) [#/Vol] 0.32 10*3/uL [facility] Monocytes/100 WBC (Bld) 4.7 % 2.0 - 10.0 % [facility] Neutrophils (Bld) [#/Vol] 4.12 10*3/uL [facility] Comment on above: Percent differential counts (%) should be interpreted in the context of the absolute cell counts (cells/uL). Neutrophils/100 WBC (Bld) 60.9 % 40.0 - 80.0 % [facility] Nucleated RBC/100 WBC (Bld) [Ratio] 0.0 % [facility] Platelets (Bld) [#/Vol] 234 10*3/uL [facility] RBC (Bld) [#/Vol] 4.66 10*6/uL [facility] WBC (Bld) [#/Vol] 6.8 10*3/uL [facility] Basophils (Bld) [#/Vol] 0.03 x10*3/uL Normal 0.00-0.10 [facility] Comment on above: Performed By: #### 5 7021-8 #### MIK FREITAS ([id number]) [facility] ([facility] [address] [place] [address] Basophils/100 WBC (Bld) 0.4 % Normal 0.0-2.0 [facility] Comment on above: Performed By: #### 5 7021-8 #### MIK FREITAS ([id number]) [facility] ([facility] [place] [facility]) [id number] [place] [address] Eosinophils (Bld) [#/Vol] 0.06 x10*3/uL Normal 0.00-0.70 [facility] Comment on above: Performed By: #### 5 7021-8 #### MIK FREITAS ([id number]) [facility] ([facility] [place] [facility]) [address] [place] [address] Eosinophils/100 WBC (Bld) 0.9 % Normal 0.0-6.0 [facility] Comment on above: Performed By: #### 5 7021-8 #### MIK FREITAS ([id number]) [facility] ([facility] [place] [facility] [address] [place] [address] Erythrocyte distribution width (RBC) [Ratio] 13.2 % Normal 11.5-14.5 [facility] Comment on above: Performed By: #### 5 7021-8 #### MIK FREITAS ([id number]) [facility] ([facility] [place] [facility] [address] [place] [address] Hematocrit (Bld) [Volume fraction] 41.6 % Normal 36.0-46.0 [facility] Comment on above: Performed By: #### 5 7021-8 #### MIK FREITAS ([id number]) [facility] ([facility] [place]) [address] [place] [address] Hemoglobin (Bld) [Mass/Vol] 13.8 g/dL Normal 12.0-16.0 [facility] Comment on above: Performed By: #### 5 7021-8 #### MIK FREITAS ([id number]) [facility] ([facility] [place] [address] [place] [address] Immature granulocytes (Bld) [#/Vol] 0.07 x10*3/uL Normal 0.00-0.70 [facility] Comment on above: Performed By: #### 5 7021-8 #### MIK FREITAS ([id number]) [facility] ([facility] [place]) [address] [place] [address] Immature granulocytes/100 WBC (Bld) 1.0 % High 0.0-0.9 [facility] Comment on above: Result Comment: Azul ture Granulocyte Count (IG) includes promyelocytes, myelocytes and metamyelocytes but does not include bands. Percent differential counts (%) should be interpreted in the context of the absolute cell counts (cells/UL). Performed By: #### 5 7021-8 #### MIK FREITAS ([id number]) [facility] ([facility] [place] [facility]) [address] [place] [address] Lymphocytes (Bld) [#/Vol] 2.17 x10*3/uL Normal 1.20-4.80 [facility] Comment on above: Performed By: #### 5 7021-8 #### MIK FREITAS ([id number]) [facility] ([facility] [facility]) [address] [place] [address] Lymphocytes/100 WBC (Bld) 32.1 % Normal 13.0-44.0 [facility] Comment on above: Performed By: #### 5 7021-8 #### MIK FREITAS ([id number]) [facility] ([facility] [place]) [address] [place] [address] MCH (RBC) [Entitic mass] 29.6 pg Normal 26.0-34.0 [facility] Comment on above: Performed By: #### 5 7021-8 #### MIK FREITAS ([id number]) [facility] ([facility] [place]) [address] [place] [address] MCHC (RBC) [Mass/Vol] 33.2 g/dL Normal 32.0-36.0 [facility] Comment on above: Performed By: #### 5 7021-8 #### MIK FREITAS ([id number]) [facility] ([facility] [place]) [address] [place] [address] MCV (RBC) [Entitic vol] 89 fL Normal 80-100 [facility] Comment on above: Performed By: #### 5 7021-8 #### MIK FREITAS ([id number]) [facility] ([facility] [place] [facility]) [address] [place] [address] Monocytes (Bld) [#/Vol] 0.32 x10*3/uL Normal 0.10-1.00 [facility] Comment on above: Performed By: #### 5 7021-8 #### MIK FREITAS ([id number]) [facility] ([facility] [place] [facility]) [address] [place] [address] Monocytes/100 WBC (Bld) 4.7 % Normal 2.0-10.0 [facility] Comment on above: Performed By: #### 5 7021-8 #### MIK FREITAS ([id number]) [facility] ([facility] [facility]) [address] [place] [address] Neutrophils (Bld) [#/Vol] 4.12 x10*3/uL Normal 1.20-7.70 [facility] Comment on above: Result Comment: Perc ent differential counts (%) should be interpreted in the context of the absolute cell counts (cells/uL). Performed By: #### 5 7021-8 #### MIK FREITAS ([id number]) [facility] ([facility] [place] [facility]) [address] [place] [address] Neutrophils/100 WBC (Bld) 60.9 % Normal 40.0-80.0 [facility] Comment on above: Performed By: #### 5 7021-8 #### MIK FREITAS ([id number]) [facility] ([facility] [place]) [address] [place] [address] Nucleated RBC/100 WBC (Bld) [Ratio] 0.0 /100 WBCs Normal 0.0-0.0 [facility] Comment on above: Performed By: #### 5 7021-8 #### MIK FREITAS ([id number]) [facility] ([facility] [place] [facility]) [address] [place] [address] Platelets (Bld) [#/Vol] 234 x10*3/uL Normal 150-450 [facility] Comment on above: Performed By: #### 5 7021-8 #### MIK FREITAS ([id number]) [facility] ([facility] [address] [place] [address] RBC (Bld) [#/Vol] 4.66 x10*6/uL Normal 4.00-5.20 [facility] Comment on above: Performed By: #### 5 7021-8 #### MIK FREITAS ([id number]) [facility] ([facility] [facility]) [address] [place] [address] WBC (Bld) [#/Vol] 6.8 x10*3/uL Normal 4.4-11.3 [facility] Comment on above: Performed By: #### 5 7021-8 #### MIK FREITAS ([id number]) [facility] ([facility] [facility] [address] [place] [address] CT CERVICAL SPINE WO IV [facility] CERVICAL SPINE WO IV CONTRAST Interpreted By: Willy Anderson, STUDY: CT CERVICAL SPINE WO IV CONTRAST; 08/07/2023 9:01 am INDICATION: Signs/Symptoms:Mechan ical fall, no thinners, positive LOC. COMPARISON: None. ACCESSION NUMBER(S): [id number] ORDERING CLINICIAN: DIMPLE MADRID TECHNIQUE: Axial CT [...] Willy Anderson 08/07/2023 9:41 AM Dictation workstation: [id number] [facility] CT Cervical spine WO contras ton 08-07-2023 No evidence for an acute fracture or subluxation of the cervical spine. MACRO: None Signed by: Willy Anderson 08/07/2023 9:41 AM Dictation workstation: [id number] [facility] Interpreted By: Willy Anderson, STUDY: CT CERVICAL SPINE WO IV CONTRAST; 08/07/2023 9:01 am INDICATION: Signs/Symptoms:Mechan ical fall, no thinners, positive LOC. COMPARISON: None. ACCESSION NUMBER(S): [id number] ORDERING CLINICIAN: DIMPLE MADRID TECHNIQUE: Axial CT [...] thinners, positive LOC. COMPARISON: None. ACCESSION NUMBER(S): [id number] ORDERING CLINICIAN: DIMPLE MADRID TECHNIQUE: Axial CT [...] Willy Anderson 08/07/2023 9:41 AM Dictation workstation: [id number] [facility] Work Phone: [facility] Work Phone: CT HEAD WO IV CONTRASTon CT HEAD WO IV CONTRAST Interpreted By: Willy Anderson, STUDY: CT HEAD WO IV CONTRAST; 08/07/2023 9:01 am INDICATION: Signs/Symptoms:Mechan ical fall, no thinners, positive LOC. COMPARISON: None. ACCESSION NUMBER(S): [id number] ORDERING CLINICIAN: DIMPLE MADRID TECHNIQUE: Noncontrast axial [...] Willy Anderson 08/07/2023 9:38 AM Dictation workstation: [id number] [facility] CT Head WO contraston 2023 No acute intracrania l hemorrhage, mass effect, or calvarial fracture. MACRO: None Signed by: Willy Anderson 08/07/2023 9:38 AM Dictation workstation: [id number] [facility] Interpreted By: Willy Anderson, STUDY: CT HEAD WO IV CONTRAST; 08/07/2023 9:01 am INDICATION: Signs/Symptoms:Mechan ical fall, no thinners, positive LOC. COMPARISON: None. ACCESSION NUMBER(S): [id number] ORDERING CLINICIAN: DIMPLE MADRID TECHNIQUE: Noncontrast axial [...] thinners, positive LOC. COMPARISON: None. ACCESSION NUMBER(S): [id number] ORDERING CLINICIAN: DIMPLE MADRID TECHNIQUE: Noncontrast axial [...] Willy Anderson 08/07/2023 9:38 AM Dictation workstation: [id number] [facility] Work Phone: CT Head WO contrastOrdered B y: Willy Anderson on 08-07-2023 [facility] Work Phone: CT THORACIC SPINE WO IV CONT RASTon 08-07-2023 CT THORACIC SPINE WO IV CONTRAST Interpreted By: Willy Anderson, STUDY: CT THORACIC SPINE WO IV CONTRAST; 08/07/2023 9:01 am INDICATION: Signs/Symptoms:Mechan ical fall, no thinners, positive LOC, thoracic spinal tenderness. COMPARISON: None. ACCESSION NUMBER(S): [id number] ORDERING CLINICIAN: DIMPLE MADRID TECHNIQUE: Axial CT [...] Willy Anderson 08/07/2023 9:48 AM Dictation workstation: [id number] [facility] CT Thoracic spine WO contras ton 08-07-2023 No acute osseous abnormality of the thoracic spine. Mild chronic appearing anterior wedging of a few scattered thoracic vertebral bodies as above. MACRO: None Signed by: Willy Anderson 08/07/2023 9:48 AM Dictation workstation: [id number] [facility] Interpreted By: Willy Anderson, STUDY: CT THORACIC SPINE WO IV CONTRAST; 08/07/2023 9:01 am INDICATION: Signs/Symptoms:Mechan ical fall, no thinners, positive LOC, thoracic spinal tenderness. COMPARISON: None. ACCESSION NUMBER(S): [id number] ORDERING CLINICIAN: DIMPLE MADRID TECHNIQUE: Axial CT [...] thoracic spinal tenderness. COMPARISON: None. ACCESSION NUMBER(S): [id number] ORDERING CLINICIAN: DIMPLE MADRID TECHNIQUE: Axial CT [...] Willy Anderson 08/07/2023 9:48 AM Dictation workstation: [id number] [facility] Work Phone: [facility] Work Phone: Coagulation tissue factor in ducedon 08-07-2023 PT Coag (PPP) [Time] 11.1 s Normal 9.8-12.8 [facility] Comment on above: Performed By: #### 5 902-2 #### MIK FREITAS ([id number]) [facility] ([facility] [address] [place] [address] Comprehensive metabolic 2000 panelon 08-07-2023 Albumin BCP dye [Mass/Vol] 4.7 g/dL 3.4 - 5.0 g/dL [facility] ALP [Catalytic activity/Vol] 61 U/L 33 - 110 U/L [facility] ALT With P-5'-P [Catalytic activity/Vol] 27 U/L 7 - 45 U/L [facility] Comment on above: Patients treated wit h Sulfasalazine may generate falsely decreased results for ALT. Anion gap [Moles/Vol] 11 mmol/L 10 - 20 mmol/L [facility] AST With P-5'-P [Catalytic activity/Vol] 23 U/L 9 - 39 U/L [facility] Bilirubin [Mass/Vol] 0.5 mg/dL 0.0 - 1 .2 mg/dL [facility] Calcium [Mass/Vol] 9.4 mg/dL 8.6 - 10. 3 mg/dL [facility] Chloride [Moles/Vol] 101 mmol/L 98 - 10 7 mmol/L [facility] CO2 [Moles/Vol] 28 mmol/L 21 - 32 mmol/L [facility] Creatinine [Mass/Vol] 0.75 mg/dL 0.50 - 1.05 mg/dL [facility] eGFR - PINF [facility] Comment on above: Calculations of danielle mated GFR are performed using the 2020 CKD-EPI Study Refit equation without the race variable for the IDMS-Traceable creatinine methods. https://jasn.asnjournals.org/content/early//ASN.5841163 988 Glucose [Mass/Vol] 108 mg/dL High 74 - 99 mg/dL [facility] Interpretation and review of laboratory results Abnormal [facility] Potassium [Moles/Vol] 3.8 mmol/L 3.5 - 5.3 mmol/L [facility] Protein [Mass/Vol] 7.8 g/dL 6.4 - 8.2 g/dL [facility] Sodium [Moles/Vol] 136 mmol/L 136 - 145 mmol/L [facility] Urea nitrogen [Mass/Vol] 13 mg/dL 6 - 23 mg/dL [facility] Albumin BCP dye [Mass/Vol] 4.7 g/dL Normal 3.4-5.0 [facility] Comment on above: Performed By: #### 2 4323-8 #### MIK FREITAS ([id number]) [facility] ([facility] [place] [facility] [address] [place] [address] ALP [Catalytic activity/Vol] 61 U/L Normal 33-110 [facility] Comment on above: Performed By: #### 2 4323-8 #### MIK FREITAS ([id number]) [facility] ([facility] [place] [address] [place] [address] ALT With P-5'-P [Catalytic activity/Vol] 27 U/L Normal 7-45 [facility] Comment on above: Result Comment: [place] ents treated with Sulfasalazine may generate falsely decreased results for ALT. Performed By: #### 2 4323-8 #### MIK FREITAS ([id number]) [facility] ([facility] [facility] [address] [facility] [place] [address] Anion gap [Moles/Vol] 11 mmol/L Normal 10-20 [facility] Comment on above: Performed By: #### 2 4323-8 #### MIK FREITAS ([id number]) [facility] ([facility] [place] [address] [place] [place] [address] AST With P-5'-P [Catalytic activity/Vol] 23 U/L Normal 9-39 [facility] Comment on above: Performed By: #### 2 4323-8 #### MIK FREITAS ([id number]) [facility] ([facility] [facility] [address] [place] [place] [address] Bilirubin [Mass/Vol] 0.5 mg/dL Normal 0.0-1.2 [facility] Comment on above: Performed By: #### 2 4323-8 #### MIK FREITAS ([id number]) [facility] ([facility] [place] [facility] [address] [place] [address] Calcium [Mass/Vol] 9.4 mg/dL Normal 8.6-10.3 [facility] Comment on above: Performed By: #### 2 4323-8 #### MIK FREITAS ([id number]) [facility] ([facility] [place] [address] [place] [place] [address] Chloride [Moles/Vol] 101 mmol/L Normal 98-107 [facility] Comment on above: Performed By: #### 2 4323-8 #### MIK FREITAS ([id number]) [facility] ([facility] [place] [address] [place] [place] [address] CO2 [Moles/Vol] 28 mmol/L Normal 21-32 [facility] Comment on above: Performed By: #### 2 4323-8 #### MIK FREITAS ([id number]) [facility] ([facility] [place] [address] [place] [place] [address] Creatinine [Mass/Vol] 0.75 mg/dL Normal 0.50-1.05 [facility] Comment on above: Performed By: #### 2 4323-8 #### MIK FREITAS ([id number]) [facility] ([facility] [place] [address] [place] [address] GFR/1.73 sq M.predicted MDRD (S/P/Bld) [Vol rate/Area] mL/min/{1.73_m2} Normal >60 [facility] Comment on above: Result Comment: Calc ulations of estimated GFR are performed using the 2020 CKD-EPI Study Refit equation without the race variable for the IDMS-Traceable creatinine methods. https://jasn.asnjournals.org/content/early/ASN.1221947 988 Performed By: #### 2 4323-8 #### MIK FREITAS ([id number]) [facility] ([facility] [place] [address] [place] [address] Glucose [Mass/Vol] 108 mg/dL High 74-99 [facility] Comment on above: Performed By: #### 2 4323-8 #### MIK FREITAS ([id number]) [facility] ([facility] [place] [address] [place] [address] Potassium [Moles/Vol] 3.8 mmol/L Normal 3.5-5.3 [facility] Comment on above: Performed By: #### 2 4323-8 #### MIK FREITAS ([id number]) [facility] ([facility] [facility] [address] [place] [address] Protein [Mass/Vol] 7.8 g/dL Normal 6.4-8.2 [facility] Comment on above: Performed By: #### 2 4323-8 #### MIK FREITAS ([id number]) [facility] ([facility] [address] [place] [address] Sodium [Moles/Vol] 136 mmol/L Normal 136-145 [facility] Comment on above: Performed By: #### 2 4323-8 #### MIK FREITAS ([id number]) [facility] ([facility] [place] [address] [place] [phone] Urea nitrogen [Mass/Vol] 13 mg/dL Normal - [facility] Comment on above: Performed By: #### 2 4323-8 #### MIK FREITAS ([id number]) [facility] ([facility] [place] [address] [place] [address] ECG 12-LEADon 08-07-2023 ECG 12-LEAD Ventricular Rate 73 Atrial Rate 73 P-R Interval 168 QRS Duration 70 Q-T Interval 392 QTC Calculation(Bazett) 431 P [place] 32 R [place] 43 T [place] 24 QRS Count 12 Q Onset 225 P Onset 141 P Offset 194 T Offset 421 QTC Fredericia 418 Diagnosis Normal sinus rhythm Septal infarct , age undetermined Abnormal ECG No previous ECGs available Confirmed by Josie Anthony ([id number]) on 08/29/2023 9:59:19 PM Normal [facility] No Panel Informationon 08-07 Radiology Study observation (narrative) [facility] Work Phone: PT Coag (PPP) [Time]on 08-07 INR Coag (PPP) [Relative time] 1.0 {INR} 0.9 - 1.1 [facility] Interpretation and review of laboratory results Normal [facility] INR Coag (PPP) [Relative time] 1.0 Normal 0.9-1.1 [facility] Comment on above: Performed By: #### 5 902-2 #### MIK FREITAS ([id number]) [facility] ([facility] [address] [place] [phone] Protime-INRon 08-07-2023 PT Coag (PPP) [Time] 11.1 s [facility] CBC AUTO DIFFon 08-08-2022 BASO # 0.0 103/ul Normal 0.0-0.1 [facility] Comment on above: Performed By: #### C BC #### [facility] [address] [place] [address] Dr. Enrique Parkinson Basophils/100 WBC (Bld) 0.6 % Normal 0.2-2.0 [facility] Comment on above: Performed By: #### C BC #### [facility] [address] [place] [address] Dr. Enrique Parkinson EO # 0.1 103/ul Normal 0.0-0.7 [facility] Comment on above: Performed By: #### C BC #### [facility] [address] [place] [address] Dr. Enrique Parkinson Eosinophils/100 WBC (Bld) 0.9 % Normal 0.9-7.0 [facility] Comment on above: Performed By: #### C BC #### [facility] [address] [place] [address] Dr. Enrique Parkinson Erythrocyte distribution width (RBC) [Ratio] 12.9 % Normal 11.0-15.0 [facility] Comment on above: Performed By: #### C BC #### [facility] [address] [place] [address] Dr. Enrique Parkinson Hematocrit (Bld) [Volume fraction] 41.5 % Normal 36.0-48.0 [facility] Comment on above: Performed By: #### C BC #### [facility] [address] [place] [address] Dr. Enrique Parkinson Hemoglobin (Bld) [Mass/Vol] 14.3 g/dL Normal 12.0-16.0 [facility] Comment on above: Performed By: #### C BC #### [facility] [address] [place] [address] Dr. Enrique Parkinson IG # 0.02 10e3/ul Normal 0.00-0.03 [facility] Comment on above: Performed By: #### C BC #### [facility] [address] [place] [place] [address] Dr. Enrique Parkinson IG % 0.3 % Normal 0.0-0.5 [facility] Comment on above: Performed By: #### C BC #### [facility] [address] [place] [address] Dr. Enrique Parkinson LYMPH # 1.8 103/ul Normal 1.2-3.8 [facility] Comment on above: Performed By: #### C BC #### [facility] [address] [place] [address] Dr. Enrique Parkinson Lymphocytes/100 WBC (Bld) 25.9 % Normal 20.5-60.0 [facility] Comment on above: Performed By: #### C BC #### [facility] [address] [place] [address] Dr. Enrique Parkinson MANUAL DIFF REQ NO Normal [facility] Comment on above: Performed By: #### C BC #### [facility] [address] [place] [address] Dr. Enrique Parkinson MCH (RBC) [Entitic mass] 30.2 pg Normal 26.7-34.0 [facility] Comment on above: Performed By: #### C BC #### [facility] [address] [place] [address] Dr. Enrique Parkinson MCHC (RBC) [Mass/Vol] 34.5 g/dL Normal 29.9-35.2 [facility] Comment on above: Performed By: #### C BC #### [facility] [address] [place] [address] Dr. Enrique Parkisnon MCV (RBC) [Entitic vol] 87.6 fL Normal 81.0-99.0 [facility] Comment on above: Performed By: #### C BC #### [facility] [address] [place] [address] Dr. Enrique Parkinson MONO # 0.4 103/ul Normal 0.3-0.8 [facility] Comment on above: Performed By: #### C BC #### [facility] [address] [place] [address] Dr. Enrique Parkinson Monocytes/100 WBC (Bld) 5.1 % Normal 1.7-12.0 [facility] Comment on above: Performed By: #### C BC #### [facility] [address] [address] [address] Enrique Parkinson NEUT # 4.6 103/ul Normal 1.4-6.5 [facility] Comment on above: Performed By: #### C BC #### [facility] [address] [place] [address] Dr. Enrique Parkinson Neutrophils/100 WBC (Bld) 67.2 % Normal 43.0-75.0 [facility] Comment on above: Performed By: #### C BC #### [facility] [address] [place] [address] Dr. Enrique Parkinson Platelet mean volume (Bld) [Entitic vol] 9.2 fL Critically low 9.5-13.5 [facility] Comment on above: Performed By: #### C BC #### [facility] [address] [place] [address] Dr. Enrique Parkinson PLT 246 103/ul Normal 150-450 [facility] Comment on above: Performed By: #### C BC #### [facility] [address] [place] [address] Dr. Enrique Parkinson RBC 4.74 106/ul Normal 4.20-5.40 [facility] Comment on above: Performed By: #### C BC #### [facility] [address] [address] [address] Enrique Parkinson WBC 6.9 103/ul Normal 4.0-11.0 [facility] Comment on above: Performed By: #### C BC #### [facility] [address] [place] [address] Dr. Enrique Parkinson FREE T3on 08-08-2022 FREE T3 2.43 pg/mlL Normal 2.18-3.98 [facility] Comment on above: Performed By: #### T 4, TSH, LIPID, CMP, FT3 #### [facility] [address] [place] [address] Dr. Enrique Parkinson GLYCOHEMOGLOBIN A1Con 2022 ADA RECOMMENDATION SEE BELOW Normal [facility] Comment on above: Result Comment: ADA RECOMMENDED LIMIT 4.0 - 6.0 ADA THERAPEUTIC TARGET < 7.0 ACTION SUGGESTED > 7.0 Performed By: #### A 1C #### [facility] [address] [address] [address] Enrique Parkinson Glucose [Mass/Vol] 114 mg/dL Normal [facility] Comment on above: Performed By: #### A 1C #### [facility] [address] [address] [address] Enrique Parkinson HbA1c (Bld) [Mass fraction] 5.6 % Normal 4.5-6.2 [facility] Comment on above: Performed By: #### A 1C #### [facility] [address] [place] [address] Dr. Enrique Parkinson LIPID PROFILEon 08-08-2022 CHOL-HDL RATIO NORM SEE BELOW Normal [facility] Comment on above: Result Comment: 3.3 - 4.4 LOW RISK 4.4 - 7.1 AVERAGE RISK 7.1 - 11.0 MODERATE RISK >11.0 HIGH RISK Performed By: #### T 4, TSH, LIPID, CMP, FT3 #### [facility] [address] [place] [address] Dr. Enrique Parkinson Cholesterol [Mass/Vol] 241 mg/dL Critically high <=200 [facility] Comment on above: Performed By: #### T 4, TSH, LIPID, CMP, FT3 #### [facility] [address] [place] [address] Dr. Enrique Parkinson Cholesterol in HDL [Mass/Vol] 45 mg/dL Normal 40-60 [facility] Comment on above: Performed By: #### T 4, TSH, LIPID, CMP, FT3 #### [facility] [address] [address] [address] Enrique Parkinson Cholesterol in LDL [Mass/Vol] 131.2 mg/dL Normal [facility] Comment on above: Performed By: #### T 4, TSH, LIPID, CMP, FT3 #### [facility] [address] [place] [address] Dr. Enrique Parkinson Cholesterol.total/Ch olesterol in HDL [Mass ratio] 5.4 {ratio} Normal [facility] Comment on above: Performed By: #### T 4, TSH, LIPID, CMP, FT3 #### [facility] [address] [address] [address] Enrique Parkinson HDL NORMAL > or = 60 mg/dl - LO W CARDIOVASCULAR RISK <40 mg/dl - HIGH CARDIOVASCULAR RISK Normal [facility] Comment on above: Performed By: #### T 4, TSH, LIPID, CMP, FT3 #### [facility] [address] [address] [address] Enrique Parkinson LDL CALC NORMAL SEE BELOW Normal [facility] Comment on above: Result Comment: <100 mg/dl OPTIMAL 100 - 129 mg/dl NEAR OR ABOVE OPTIMAL 130 - 159 mg/dl BORDERLINE HIGH 160 - 189 mg/dl HIGH >190 mg/dl VERY HIGH Performed By: #### T 4, TSH, LIPID, CMP, FT3 #### [facility] [address] [address] [address] Enrique Parkinson Triglyceride [Mass/Vol] 324 mg/dL Critically high <=150 [facility] Comment on above: Performed By: #### T 4, TSH, LIPID, CMP, FT3 #### [facility] [address] [address] [address] Enrique Parkinson VLDL CALC 64.8 mg/dL Normal [facility] Comment on above: Performed By: #### T 4, TSH, LIPID, CMP, FT3 #### [facility] [address] [place] [address] Dr. Enrique Parkinson PROF 14(COMP METB)on 023 Albumin [Mass/Vol] 4.1 g/dL Normal 3.4-5.0 [facility] Comment on above: Performed By: #### T 4, TSH, LIPID, CMP, FT3 #### [facility] [address] [address] [address] Enrique Parkinson Albumin/Globulin [Mass ratio] 1.1 {ratio} Normal [facility] Comment on above: Performed By: #### T 4, TSH, LIPID, CMP, FT3 #### [facility] [address] [address] [address] Enrique Parkinson ALP [Catalytic activity/Vol] 83 U/L Normal 46-116 [facility] Comment on above: Performed By: #### T 4, TSH, LIPID, CMP, FT3 #### [facility] [address] [place] [address] Dr. Enrique Parkinson ALT [Catalytic activity/Vol] 28 U/L Normal 14-59 [facility] Comment on above: Performed By: #### T 4, TSH, LIPID, CMP, FT3 #### [facility] [address] [place] [address] Dr. Enrique Parkinson Anion gap [Moles/Vol] 12.3 mmol/L Normal [facility] Comment on above: Performed By: #### T 4, TSH, LIPID, CMP, FT3 #### [facility] [address] [place] [address] Dr. Enrique Parkinson AST [Catalytic activity/Vol] 20 U/L Normal 15-37 [facility] Comment on above: Performed By: #### T 4, TSH, LIPID, CMP, FT3 #### [facility] [address] [place] [address] Dr. Enrique Parkinson Bilirubin [Mass/Vol] 0.4 mg/dL Normal 0.2-1.0 [facility] Comment on above: Performed By: #### T 4, TSH, LIPID, CMP, FT3 #### [facility] [address] [place] [address] Dr. Enrique Parkinson Calcium [Mass/Vol] 9.2 mg/dL Normal 8.5-10.1 [facility] Comment on above: Performed By: #### T 4, TSH, LIPID, CMP, FT3 #### [facility] [address] [place] [address] Dr. Enrique Parkinson Chloride [Moles/Vol] 101 mmol/L Normal 98-107 [facility] Comment on above: Performed By: #### T 4, TSH, LIPID, CMP, FT3 #### [facility] [address] [place] [address] Dr. Enrique Parkinson CO2 [Moles/Vol] 29.4 mmol/L Normal 21.0-32.0 [facility] Comment on above: Performed By: #### T 4, TSH, LIPID, CMP, FT3 #### [facility] [address] [address] [address] Enrique Parkinson Creatinine [Mass/Vol] 0.80 mg/dL Normal 0.55-1.02 [facility] Comment on above: Performed By: #### T 4, TSH, LIPID, CMP, FT3 #### [facility] [address] [place] [address] Dr. Enrique Parkinson EGFR-AF BOLIVIAN >60 Normal >=60 [facility] Comment on above: Performed By: #### T 4, TSH, LIPID, CMP, FT3 #### [facility] [address] [place] [address] Dr. Enrique Parkinson EGFR-NON AF BOLIVIAN >60 Normal >=60 [facility] Comment on above: Performed By: #### T 4, TSH, LIPID, CMP, FT3 #### [facility] [address] [place] [address] Dr. Enrique Parkinson Globulin (S) [Mass/Vol] 3.8 g/dL Normal [facility] Comment on above: Performed By: #### T 4, TSH, LIPID, CMP, FT3 #### [facility] [address] [place] [address] Dr. Enrique Parkinson Glucose [Mass/Vol] 111 mg/dL Critically high 74-106 [facility] Comment on above: Performed By: #### T 4, TSH, LIPID, CMP, FT3 #### [facility] [address] [place] [address] Dr. Enrique Parkinson Potassium [Moles/Vol] 3.7 mmol/L Normal 3.5-5.1 [facility] Comment on above: Performed By: #### T 4, TSH, LIPID, CMP, FT3 #### [facility] [address] [place] [address] Dr. Enrique Parkinson Protein [Mass/Vol] 7.9 g/dL Normal 6.4-8.2 [facility] Comment on above: Performed By: #### T 4, TSH, LIPID, CMP, FT3 #### [facility] [address] [address] [address] Enrique Parkinson Sodium [Moles/Vol] 139 mmol/L Normal 136-145 [facility] Comment on above: Performed By: #### T 4, TSH, LIPID, CMP, FT3 #### [facility] [address] [place] [address] Dr. Enrique Parkinson Urea nitrogen [Mass/Vol] 15.0 mg/dL Normal 7.0-18.0 [facility] Comment on above: Performed By: #### T 4, TSH, LIPID, CMP, FT3 #### [facility] [address] [place] [address] Dr. Enrique Parkinson Urea nitrogen/Creatinine [Mass ratio] 18.8 mg/mg Normal [facility] Comment on above: Performed By: #### T 4, TSH, LIPID, CMP, FT3 #### [facility] [address] [place] [address] Dr. Enrique Parkinson T4on 08-08-2022 T4 [Mass/Vol] 10.30 ug/dL Normal 4.80-13.90 [facility] Comment on above: Performed By: #### T 4, TSH, LIPID, CMP, FT3 #### [facility] [address] [place] [address] Dr. Enrique Parkinson TSHon 08-08-2022 TSH 0.847 uIU/mL Normal 0.358-3.740 [facility] Comment on above: Performed By: #### T 4, TSH, LIPID, CMP, FT3 #### [facility] [address] [place] [address] Dr. Enrique Parkinson VITAMIN D 25 OHon 08-08-2022 VIT D 25-OH 35.8 ng/mL Normal [facility] Comment on above: Performed By: #### V ITAD #### [facility] [address] [place] [address] Dr. Enrique Parkinson VIT D RANGES SEE BELOW Normal [facility] Comment on above: Result Comment: <20 ng/mL Vit D deficient 20 - <30 ng/mL Vit D insufficient 30 - 100 ng/mL Vit D sufficient >100 ng/mL Potential Toxicity Performed By: #### V ITAD #### [facility] [address] [place], [place] [id number] Dr. Enrique Parkinson Covid-19 PCR ([facility])on 12-15 SARS-CoV-2 (COVID-19) RNA RENATO+probe Ql (Unsp spec) Not detected Normal NOT DETECTED [facility] Comment on above: Result Comment: This test is not yet approved or cleared by the [place] FDA. When there are no FDA-approved or cleared tests available, and other criteria are met, FDA can make tests available under an emergency access mechanism called an Emergency Use Authorization (EUA). The EUA for this test is supported by the [place] of Health and Human Service's (HHS's) declaration [...] SARS-CoV-2. Performed By: #### C VDTBH #### [facility] [address] [place] [address] [address] [address] Enrique Parkinson SYMPTOMATIC COVID-19 ANTIGEN on 01-04-2022 EUA Statement SEE BELOW Normal [facility] Comment on above: Result Comment: This test [...] sooner. Performed By: #### C VDAGS #### [facility] [address] [place] [address] Dr. Enrique Parkinson SARS-CoV-2 (COVID-19) RNA RENATO+probe Ql (Unsp spec) Negative Normal NEGATIVE [facility] Comment on above: Performed By: #### C VDAGS #### [facility] [address] [place] [address] Dr. Enrique Parkinson PAP ACOG PANEL 2: 30 to 65on 11-19-2021 . . Normal [facility] Comment on above: Result Comment: Perf ormed at: WB Performed By: #### C VDAGS #### [facility] [address] [place] [address] Dr. Enrique Parkinson Age Gdln ACOG Testing -[address] [facility] Comment on above: Performed By: #### C VDAGS #### [facility] [address] [place] [address] Dr. Enrique Parkinson DIAGNOSIS: Comment Normal [facility] Comment on above: Result Comment: NEGA TIVE FOR INTRAEPITHELIAL LESION OR MALIGNANCY. Performed at: WB Performed By: #### C VDAGS #### [facility] [address] [place] [address] Dr. Enrique Parkinson HPV Aptima Negative Normal Negative [facility] Comment on above: Result Comment: This nucleic acid amplification test detects fourteen high-risk HPV types (16,18,31,33,35,39,45,51,52,56,58,59,66,68) without differentiation. Performed at: =G Performed By: #### C VDAGS #### [facility] [address] [place], [place] [address] Dr. Enrique Parkinson Methodology: Comment Normal [facility] Comment on above: Result Comment: This liquid based ThinPrep(R) pap test was screened with the use of an image guided system. Performed at: WB Performed By: #### C VDAGS #### [facility] [address] [address] [address] Enrique Parkinson Note: Comment Normal [facility] Comment on above: Result Comment: The [...] WB Performed By: #### C VDAGS #### [facility] [address] [address] [address] Enrique Parkinson Performed by: Comment Normal [facility] Comment on above: Result Comment: Hipolito Rosenberg, Director Of Sales And Marketing (ASCP) Performed at: WB Performed By: #### C VDAGS #### [facility] [address] [place] [address] Dr. Enrique Parkinson Specimen adequacy: Comment Normal [facility] Comment on above: Result Comment: Sati sfactory for evaluation. Endocervical and/or squamous metaplastic cells (endocervical component) are present. Performed at: WB Performed By: #### C VDAGS #### [facility] [address] [address] [address] Enrique Parkinson Vital Signs Date Time Vital Sign Value Performing Clinician Facility 08-07-2023 10:27-0500 Diastolic blood pressure 94 mm[Hg] Ar[place] Dennison DO Work Phone: [facility] 08-07-2023 10:27-0500 Heart rate 77 /min [place] Dennison DO Work Phone: [facility] 08-07-2023 10:27-0500 SaO2% (BldA) [Mass fraction] 98 % Ar[place] Dennison DO Work Phone: [facility] 08-07-2023 10:27-0500 Systolic blood pressure 140 mm[Hg] Aruba Dennison DO Work Phone: [facility] 08-07-2023 08:01-0500 Body height 167.6 cm Ar[place] Dennison DO Work Phone: [facility] 08-07-2023 08:01-0500 Body mass index (BMI) [Ratio] 29.05 kg/m2 Aruba Dennison DO Work Phone: [facility] 08-07-2023 08:01-0500 Body temperature 98.1 [degF] Aruba Dennison DO Work Phone: [facility] 08-07-2023 08:01-0500 Body weight 81.65 kg Ar[place] Dennison DO Work Phone: [facility] 08-07-2023 08:01-0500 Respiratory rate 16 /min Ar[place] Dennison DO Work Phone: [facility] 12-14-2022 14:45-0400 Body height 167.64 cm Mirta Chacko Other [facility] Other 12-14-2022 14:45-0400 Body mass index (BMI) [Ratio] 30.18 kg/m2 Mirta Chacko Other [facility] Other 12-14-2022 14:45-0400 Body temperature 97.8 [degF] Mirta Chacko Other [facility] Other 12-14-2022 14:45-0400 Body weight 84.82 kg Mirta Chacko Other [facility] Other 12-14-2022 14:45-0400 Respiratory rate 18 /min Mirta Chacko Other [facility] Other 12-14-2022 14:45-0400 SaO2% (BldA) [Mass fraction] 98 % Mirta Chacko Other [facility] Other Encounters Encounter Date Encounter Type Care Provider Facility Start: 04-16-2024 End: 04-16-2024 ambulatory DAVE ORTEGA Not Available Start: 08-07-2023 End: 08-07-2023 Emergency department patient visit Raj Dennison DO Work Phone: [facility] Comment on above: Fall, initial encoun ter (Primary Dx); Closed head injury, initial encounter Start: 12-14-2022 End: 12-14-2022 ambulatory Mirta Chacko Other [facility] Other Start: 12-14-2022 Office outpatient ne w 30 minutes Mirta Chacko [facility] Start: 08-09-2022 Encounter for genera l adult medical examination without abnormal findings DR RAKESH LUNDBERG [facility] Start: 08-08-2022 End: 08-09-[address] [...] 03-16-2023 Influenza vaccination Influenza Vacc ine (#1) [facility] Start: 05-24-2021 COVID-19 Vaccine (3 - Pfizer series) COVID-19 Vaccine (3 - Pfizer series) [facility] Start: 2017 Zoster Vaccines (1 of 2) Zoste r Vaccines (1 of 2) [facility] Start: 2007 Screening for malign ant neoplasm of breast Mammogram [facility] Start: 1989 DTaP/Tdap/Td Vaccine s (1 - Tdap) DTaP/Tdap/Td Vaccines (1 - Tdap) [facility] Start: 01-06-1988 Screening for malign ant neoplasm of cervix [facility] Start: 1985 Diabetes mellitus screening Diabetes Screening [facility] Start: 1985 Hepatitis C screening Hepatitis C Sc reening [facility] Start: 01-06-1968 MMR Vaccines (1 of 1 - Standard series) MMR Vaccines (1 of 1 - Standard series) [facility] Start: 1967 Hepatitis B Vaccines (1 of 3 - 3-dose series) Hepatitis B Vaccines (1 of 3 - 3-dose series) [facility] Start: 1967 HIV screening [facility] Start: 1967 Lipid panel Lipid Panel [facility] Start: 1967 Screening for malign ant neoplasm of colon [facility] Start: 1967 Yearly Adult Physical Yearly Adult P hysical [facility] ECG 12 lead ECG 12 lead ECG STAT 08/07/2023 8:33 AM EST [facility] Service Area Work Phone: Payers Date Payer Category Payer Unknown [id number] 2020 Unknown [facility] [facility] [id number] 2020-Present Sada Trimble [id number] [place] [address] [id number] 1967 Unknown [id number] 1967 Unknown [id number] 1967 Unknown [id number] 1967 Unknown [id number] 1967 Unknown [id number] 1967 Unknown [id number] 1967 Unknown [id number] 1959 Self-pay [id number] 1957 Unknown [id number] Social History Date Type Detail Facility Unknown if ever smoked [facility] Other Sex Assigned At [facility] Other Tobacco smoking status IAIS Tobacco smoking consumption unknown [facility] Work Phone: Start: 1965 Sex Assigned At Not on file [facility] Work Phone: Start: 07-28-2023 End: 08-07-2023 Exposure to SARS-CoV-2 (event) Not sure [facility] Work Phone: Hospital Discharge instructions 08-07-2023 Discharge [...] needed for pain. documented in this encounter [facility] Work Phone: Evaluation note 12-14-2022 Note Date [...] resolved. Patient verbalized understanding of treatment plan [facility] Other Evaluation note Note Date & Type Note Facility Evaluation note Diagnosis Fall, initial encounter- Primary Closed head injury, initial encounter documented in this encounter [facility] Work Phone: History general Narrative - Reported Note Date & Type Note Facility History general Narrative - Reported Type Medical History high blood pressure Medical History thyroid disease Surgical History C section Surgical History lobectomy Surgical History wrist surgery Surgical History bowel surgery Hospitalization History see above [facility] Other Summary Purpose Family History No Family [...] DATE CREATED AUTHOR AUTHOR'S ORGANIZ ATION 08/31/2023 [facility] DATE CREATED AUTHOR AUTHOR'S ORGANIZ ATION 04/08/2024 [facility] DATE CREATED AUTHOR AUTHOR'S ORGANIZ ATION 04/17/[address] [facility] EPIC REASON FOR VISIT [...] Care Teams (unrecognized sec tion and content) [employer] Teacher Relationship Specialty Start Date End Date Rakesh Lundberg MD [address] [place] [address] PCP - General 09/06/09 FOR RECORDS PERTAINING [...] BE BASED ON THE PRIMARY CLINICAL RECORDS. [employer] [facility] provides no warranty or guarantee of the accuracy or completeness of information in this document.
[2024-05-11] MEDS: CIPROFLOXACIN IN 5 % DEXTROSE 400 MG/200 ML PREMIX 200 MG IV ×2 (05:52→16:27)
[2024-05-11] MEDS: 0.9 % SODIUM CHLORIDE 1,000 ML 100 ML IV ×2 (05:52→17:33)
[2024-05-11] MEDS: MORPHINE SULFATE 2 MG/ML SYRINGE IV ×3 (06:01→16:25)
[2024-05-11] MEDS: ACETAMINOPHEN 325 MG TABLET 650 MG PO (08:18)
--- NOTE | 2024-05-11 08:35 | P.HP_ITS ---
HPI H&P: HPI History of Present Illness Chief complaint: COLITISIS, RECTAL BLEEDING Narrative: Patient is a 59 y.o white female with past medical history of hypothyroidism, hypertension, depression and obesity who presented to the ER last night with a several hour history of nausea/vomiting/ diarrhea. She has been having bright red blood after bowel movements. The ER physician performed a digital rectal exam and noted a large external hemorrhoid. Patient denies fevers or chills but significant diffuse abdominal pain with n/v/d. She has no history of inflammatory bowel disease. Had colonoscopy at 52 years old, normal findings. She recently has been taking ozempic for weight loss. She notes this stomach pain has happened twice recently all after eating fatty foods. Denies fevers, chest pain or shortness of breath ER findings: WBC's 19.8, Hb 14.8, Lactate 1.3, ALT 70; CT of the abdomen showed diffuse colitis most significant in the descending and sigmoid colon with some stool burden in the ascending colon, no free air. Patient was provided pain medication, started on cipro and flagyl and admitted for further plan of care. Opioid HPI Opioid Management Most Recent Pain and Opioid Data: Last Pain Scale 4 05/11/24 13:15 05/11/24 Last Pain Assessment 05/11/24 13:15 Last MAR Pain Assessment 05/11/24 12:24 Last ORT Total Score 0 05/11/24 05:15 05/11/24 Last ORT Risk Category Low Risk 05/11/24 05:15 05/11/24 Review of Systems ROS Narrative ROS: a complete review of systems were reviewed with patient and are positive as below or listed in History of Chief Complaint. General: no fever, chills, night sweats Head: no headache, trauma, visual changes, but nausea and vomiting Skin: no reported rashes, itching or sores Eyes: no blurriness of vision Ears: no reported hearing loss, vertigo, earache, or tinnitus Throat: no sore throat, hoarseness, swelling of neck, or tongue pain Heart: no chest pain Lungs: no shortness of breath or cough GI: diarrhea and vomiting/nausea Urinary: no urinary urgency, frequency or pain Neuro: no numbness or tingling HEM: no bleeding issues or bruising ENDO:thyroid problems Psych:anxiety or depression [facility] Medical History (Updated 05/11/24 @ 08:43 by Mila Xiao DO) Sleep apnea ?G47.30 - Sleep apnea, unspecified (ICD-10) Hypothyroidism ?E03.9 - Hypothyroidism, unspecified (ICD-10) HTN (hypertension) ?I10 - Essential (primary) hypertension (ICD-10) Surgical History History of lobectomy of lung ?Z90.2 - Acquired absence of lung [part of] (ICD-10) Family History Other Family history of CHF (congestive heart failure) Family history of cancer Family history of diabetes mellitus Family history of hypertension Family history of myocardial infarction Social History Within the past year, how often did you have a drink containing alcohol: monthly or less Smoking status: Never smoker Non-prescribed substance use: denies use Are you now , , , , never or living with a partner: In a typical week, how many times do you talk on the telephone with family, friends, or neighbors: 3 or more times per week How often do you get together with friends or relatives: 3 or more times per week Little interest or pleasure in doing things: not at all Feeling down, depressed, or hopeless: not at all Feel stressed/tense/nervous/anxious/difficulty sleeping: not at all Do you think of yourself as: straight/heterosexual Gender Identity: female Meds Home Medications and Allergies Home Medications ?Medication ?Instructions ?Recorded ?Confirmed ?Type fluoxetine 10 mg capsule 10 mg PO DAILY 05/11/24 05/11/24 History levothyroxine 125 mcg tablet 125 mcg PO DAILY 05/11/24 05/11/24 History lisinopril 10 mg tablet 10 mg PO DAILY 05/11/24 05/11/24 History modafinil 200 mg tablet 200 mg PO DAILY 05/11/24 05/11/24 History semaglutide 0.25 mg or 0.5 mg (2 0.25 mg subcut QWEEK 05/11/24 05/11/24 History mg/3 mL) subcutaneous pen injector ([employer]) Allergies Allergy/AdvReac Type Severity Reaction Status Date / Time penicillin G Allergy Severe Hives Verified 05/11/24 02:00 Exam Narrative Exam Narrative: General: Patient is alert, and oriented to person, place and time with normal affect, proper hygiene Skin: no visible rashes, or ulcers Head: atraumatic, acephalic Eyes: PERRLA, no nystagmus present, conjunctiva clear, no scleral icterus Ears: normal Tympanic Membrane, normal gross auditory acuity Nose: symmetric, no discharge, no maxillary or frontal sinus tenderness Mouth/Throat: no erythema, exudate, or tonsillar enlargement, normal dentition Neck: no masses palpated, normal thyroid, no JVD or audible carotid bruits Heart: Normal rate and rhythm, no murmurs/rubs/gallops Lungs: no audible wheezes, crackles and normal breath sounds all lung soler Abdomen: Normal audible bowel sounds, no distension, No palpable masses, diffuse guarding Musculoskeletal: no swelling bilateral lower extremities Neuro: CN II-X grossly intact Constitutional Vital Signs, click to edit/add: Last Vital Signs Temp 97.5 F L 05/11/24 08:00 Pulse 65 05/11/24 08:00 Resp 18 05/11/24 08:00 BP 123/80 05/11/24 08:00 Pulse Ox 95 05/11/24 08:00 O2 Del Method Room Air 05/11/24 08:00 Results Labs Labs: Short CBC 05/11/24 Range/Units 02:06 WBC 19.8 H (4.0-11.0) 10^3/uL Hgb 14.8 (12.0-16.0) g/dL Hct 43.2 (36.0-48.0) % Plt Count 285 (150-450) 10^3/uL BMP 05/11/24 02:06 Sodium 140 Potassium 3.9 Chloride 104 Carbon Dioxide 26.2 BUN 18.0 Creatinine 0.89 Glucose 127 H Calcium 9.3 Liver Function 05/11/24 Range/Units 02:06 Total Bilirubin 0.5 (0.2-1.0) mg/dL AST 35 (15-37) U/L ALT 70 H (14-59) U/L Alkaline Phosphatase 92 (46-116) U/L Albumin 3.9 (3.4-5.0) g/dL Assessment and Plan Assessment and Plan (1) Colitis, acute: Assessment and Plan: Patient with normal lactate but leukocytosis and abdominal pain. Patient NPO for bowel rest. Currently on Cipro and flagyl. Will give Morphine as needed and transition to PO once patient nausea controlled. Zofran and phenergan as needed for this. Will consult General Surgery for further guidance and plan of care. Stool cultures/Cdiff pending. Continue IVF with LR at 125. (2) Bright red rectal bleeding: Assessment and Plan: Monitor CBC, Hb stable (3) Hypothyroidism: Assessment and Plan: continue levothyroxine Qualifiers: Hypothyroidism type: acquired Qualified Code(s): E03.9 - Hypothyroidism, unspecified (4) HTN (hypertension): Assessment and Plan: continue lisinopril Qualifiers: Hypertension type: primary hypertension Qualified Code(s): I10 - Essential (primary) hypertension Plan patient is a full code Currently SCD's for DVT prophylaxis patient is inpatient status and will require 2-3 days treatment for her acute colitis
[2024-05-11] MEDS: LISINOPRIL 10 MG TABLET PO (08:48)
[2024-05-11] MEDS: FLUOXETINE HCL 10 MG CAPSULE PO (08:48)
[2024-05-11] MEDS: LEVOTHYROXINE SODIUM 125 MCG TABLET PO (08:48)
[2024-05-11 11:07] LABS: Bilirubin Urine SMALL (NEGATIVE); Blood Urine NEGATIVE (NEGATIVE); Clarity Urine SL CLOUDY (CLEAR); Color Urine DK. YELLOW (YELLOW); Glucose Urine UA NEGATIVE (NEGATIVE); Ketones Urine TRACE mg/dL (NEGATIVE); Leukocyte Esterase Urine NEGATIVE (NEGATIVE); Nitrite Urine NEGATIVE (NEGATIVE); Protein Urine NEGATIVE (NEG/TRACE); Specific Gravity Urine >=1.030 (1.005-1.025); Urobilinogen Urine 0.2 EU/dL (0.2-1.0); pH Urine 5.5 (5.0-9.0)
[2024-05-11 11:08] LABS: Urine Microscopic Indicated NO
--- NOTE | 2024-05-11 13:36 | PM.GSCN ---
[facility] Medical History (Updated 05/11/24 @ 08:43 by Mila Xiao DO) Sleep apnea ?G47.30 - Sleep apnea, unspecified (ICD-10) Hypothyroidism ?E03.9 - Hypothyroidism, unspecified (ICD-10) HTN (hypertension) ?I10 - Essential (primary) hypertension (ICD-10) Surgical History History of lobectomy of lung ?Z90.2 - Acquired absence of lung [part of] (ICD-10) Family History Other Family history of CHF (congestive heart failure) Family history of cancer Family history of diabetes mellitus Family history of hypertension Family history of myocardial infarction Social History Within the past year, how often did you have a drink containing alcohol: monthly or less Smoking status: Never smoker Non-prescribed substance use: denies use Are you now , , , , never or living with a partner: In a typical week, how many times do you talk on the telephone with family, friends, or neighbors: 3 or more times per week How often do you get together with friends or relatives: 3 or more times per week Little interest or pleasure in doing things: not at all Feeling down, depressed, or hopeless: not at all Feel stressed/tense/nervous/anxious/difficulty sleeping: not at all Do you think of yourself as: straight/heterosexual Gender Identity: female Meds Home Medications and Allergies Home Medications ?Medication ?Instructions ?Recorded ?Confirmed ?Type fluoxetine 10 mg capsule 10 mg PO DAILY 05/11/24 05/11/24 History levothyroxine 125 mcg tablet 125 mcg PO DAILY 05/11/24 05/11/24 History lisinopril 10 mg tablet 10 mg PO DAILY 05/11/24 05/11/24 History modafinil 200 mg tablet 200 mg PO DAILY 05/11/24 05/11/24 History semaglutide 0.25 mg or 0.5 mg (2 0.25 mg subcut QWEEK 05/11/24 05/11/24 History mg/3 mL) subcutaneous pen injector (Ozempic) Allergies Allergy/AdvReac Type Severity Reaction Status Date / Time penicillin G Allergy Severe Hives Verified 05/11/24 02:00 Exam Constitutional Vital Signs, click to edit/add: Last Vital Signs Temp 98.1 F 05/11/24 12:30 Pulse 62 05/11/24 12:30 Resp 18 05/11/24 12:30 BP 107/67 05/11/24 12:30 Pulse Ox 95 05/11/24 12:30 O2 Del Method Room Air 05/11/24 12:30 Results Labs Labs: Abnormal lab results 05/11/24 05/11/24 Range/Units 02:06 02:18 WBC 19.8 H (4.0-11.0) 10^3/uL MPV 9.0 L (9.5-13.5) fL Neut % (Auto) 86.8 H (43.0-75.0) % Lymph % (Auto) 7.8 L (20.5-60.0) % Eos % (Auto) 0.4 L (0.9-7.0) % Neut # (Auto) 17.2 H (1.4-6.5) 10^3/uL [place] # (Auto) 0.9 H (0.3-0.8) 10^3/uL Abs Immat Gran (auto) 0.06 H (0.00-0.03) 10^3/uL Glucose 127 H (74-106) mg/dL ALT 70 H (14-59) U/L Ur Specific [place] >=1.030 A (1.005-1.025) Urine Ketones Trace A (NEGATIVE) mg/dL Urine Bilirubin Small A (NEGATIVE) Diabetes panel 05/11/24 Range/Units 02:06 Sodium 140 (136-145) mmol/L Potassium 3.9 (3.5-5.1) mmol/L Chloride 104 (98-107) mmol/L Carbon Dioxide 26.2 (21.0-32.0) mmol/L BUN 18.0 (7.0-18.0) mg/dL Creatinine 0.89 (0.55-1.02) mg/dL Glucose 127 H (74-106) mg/dL Calcium 9.3 (8.5-10.1) mg/dL AST 35 (15-37) U/L ALT 70 H (14-59) U/L Alkaline Phosphatase 92 (46-116) U/L Total Protein 7.4 (6.4-8.2) g/dL Albumin 3.9 (3.4-5.0) g/dL Calcium panel 05/11/24 Range/Units 02:06 Calcium 9.3 (8.5-10.1) mg/dL Albumin 3.9 (3.4-5.0) g/dL Pituitary panel 05/11/24 Range/Units 02:06 Sodium 140 (136-145) mmol/L Potassium 3.9 (3.5-5.1) mmol/L Chloride 104 (98-107) mmol/L Carbon Dioxide 26.2 (21.0-32.0) mmol/L BUN 18.0 (7.0-18.0) mg/dL Creatinine 0.89 (0.55-1.02) mg/dL Glucose 127 H (74-106) mg/dL Calcium 9.3 (8.5-10.1) mg/dL Adrenal panel 05/11/24 Range/Units 02:06 Sodium 140 (136-145) mmol/L Potassium 3.9 (3.5-5.1) mmol/L Chloride 104 (98-107) mmol/L Carbon Dioxide 26.2 (21.0-32.0) mmol/L BUN 18.0 (7.0-18.0) mg/dL Creatinine 0.89 (0.55-1.02) mg/dL Glucose 127 H (74-106) mg/dL Calcium 9.3 (8.5-10.1) mg/dL Total Bilirubin 0.5 (0.2-1.0) mg/dL AST 35 (15-37) U/L ALT 70 H (14-59) U/L Alkaline Phosphatase 92 (46-116) U/L Total Protein 7.4 (6.4-8.2) g/dL Albumin 3.9 (3.4-5.0) g/dL All other labs normal. Assessment and Plan Assessment and Plan (1) Colitis, acute: (2) Bright red rectal bleeding: (3) Hypothyroidism: Qualifiers: Hypothyroidism type: acquired Qualified Code(s): E03.9 - Hypothyroidism, unspecified (4) HTN (hypertension): Qualifiers: Hypertension type: primary hypertension Qualified Code(s): I10 - Essential (primary) hypertension
--- NOTE | 2024-05-11 13:38 | PM.GSCN ---
History of Present Illness Consult details Consult date: 05/11/24 Reason for consult: abdominal pain Requesting physician: Mila Xiao Narrative: Leida Laird 59 yo female with a hx of hypothyroidism, HTN, depression, sleep apnea presenting with abdominal pain, nausea and vomiting that started that last night around 9 pm. Pt states pain started as a cramping that was a 10/10. Pt had multiple bowel movements and vomited. Pt noticed bright red blood at this time and came to the ER. Pain has been constant and crampy since then in the lower abdomen, pt has passed bright red blood with out stool seen by the nurse today. Pt does have a history of having abdominal pain in past, but pain usually resolves with bowel moment. Pt has had relief today from pain and nausea with medication. Pt has a hx of diverticulitis and a prolapsed bowel, last scope was over 7 years ago. Pt admits to being constipated, having one bowel movement a day and taking mirolax at least 4x weekly. Pt recently started taking a semaglutide 6 months ago, has noticed weight loss. No family history or pt history of colon cancer or IBD. Pt was noted to have external hemorrhoids in ER, she says she has not noticed them before or been bothered by them previously. Review of Systems ROS Status of ROS 10 or more systems reviewed and unremarkable except as noted in history and below Gastrointestinal Reports: abdominal pain, nausea, vomiting and other (hematochezia ) [facility] Medical History (Updated 05/11/24 @ 08:43 by Mila Xiao DO) Sleep apnea ?G47.30 - Sleep apnea, unspecified (ICD-10) Hypothyroidism ?E03.9 - Hypothyroidism, unspecified (ICD-10) HTN (hypertension) ?I10 - Essential (primary) hypertension (ICD-10) Surgical History History of lobectomy of lung ?Z90.2 - Acquired absence of lung [part of] (ICD-10) Family History Other Family history of CHF (congestive heart failure) Family history of cancer Family history of diabetes mellitus Family history of hypertension Family history of myocardial infarction Social History Within the past year, how often did you have a drink containing alcohol: monthly or less Smoking status: Never smoker Non-prescribed substance use: denies use Are you now , , , , never or living with a partner: In a typical week, how many times do you talk on the telephone with family, friends, or neighbors: 3 or more times per week How often do you get together with friends or relatives: 3 or more times per week Little interest or pleasure in doing things: not at all Feeling down, depressed, or hopeless: not at all Feel stressed/tense/nervous/anxious/difficulty sleeping: not at all Do you think of yourself as: straight/heterosexual Gender Identity: female Meds Home Medications and Allergies Home Medications ?Medication ?Instructions ?Recorded ?Confirmed ?Type fluoxetine 10 mg capsule 10 mg PO DAILY 05/11/24 05/11/24 History levothyroxine 125 mcg tablet 125 mcg PO DAILY 05/11/24 05/11/24 History lisinopril 10 mg tablet 10 mg PO DAILY 05/11/24 05/11/24 History modafinil 200 mg tablet 200 mg PO DAILY 05/11/24 05/11/24 History semaglutide 0.25 mg or 0.5 mg (2 0.25 mg subcut QWEEK 05/11/24 05/11/24 History mg/3 mL) subcutaneous pen injector (Ozempic) Allergies Allergy/AdvReac Type Severity Reaction Status Date / Time penicillin G Allergy Severe Hives Verified 05/11/24 02:00 Exam Constitutional Vital Signs, click to edit/add: Last Vital Signs Temp 98.1 F 05/11/24 12:30 Pulse 62 05/11/24 12:30 Resp 18 05/11/24 12:30 BP 107/67 05/11/24 12:30 Pulse Ox 95 05/11/24 12:30 O2 Del Method Room Air 05/11/24 12:30 Documenting provider has reviewed patient's vital signs: yes Common normals: no apparent distress, healthy appearing and alert General appearance: cooperative, comfortable, well kempt and well developed Orientation/consciousness: Yes awake Respiratory Common normals: normal respiratory effort, no retractions, no use of accessory muscles and clear to auscultation bilaterally Cardio Common normals: no JVD, regular rate and regular rhythm GI Common normals: Normal to inspection, nondistended, normoactive bowel sounds present and no hepatosplenomegaly Inspection: normal to inspection Auscultation: normoactive bowel sounds Palpation: soft, tender and rebound tenderness present Percussion: normal to percussion Rectal Exam - Female: deferred Results Labs Labs: Abnormal lab results 05/11/24 05/11/24 Range/Units 02:06 02:18 WBC 19.8 H (4.0-11.0) 10^3/uL MPV 9.0 L (9.5-13.5) fL Neut % (Auto) 86.8 H (43.0-75.0) % Lymph % (Auto) 7.8 L (20.5-60.0) % Eos % (Auto) 0.4 L (0.9-7.0) % Neut # (Auto) 17.2 H (1.4-6.5) 10^3/uL [place] # (Auto) 0.9 H (0.3-0.8) 10^3/uL Abs Immat Gran (auto) 0.06 H (0.00-0.03) 10^3/uL Glucose 127 H (74-106) mg/dL ALT 70 H (14-59) U/L Ur Specific [place] >=1.030 A (1.005-1.025) Urine Ketones Trace A (NEGATIVE) mg/dL Urine Bilirubin Small A (NEGATIVE) Diabetes panel 05/11/24 Range/Units 02:06 Sodium 140 (136-145) mmol/L Potassium 3.9 (3.5-5.1) mmol/L Chloride 104 (98-107) mmol/L Carbon Dioxide 26.2 (21.0-32.0) mmol/L BUN 18.0 (7.0-18.0) mg/dL Creatinine 0.89 (0.55-1.02) mg/dL Glucose 127 H (74-106) mg/dL Calcium 9.3 (8.5-10.1) mg/dL AST 35 (15-37) U/L ALT 70 H (14-59) U/L Alkaline Phosphatase 92 (46-116) U/L Total Protein 7.4 (6.4-8.2) g/dL Albumin 3.9 (3.4-5.0) g/dL Calcium panel 05/11/24 Range/Units 02:06 Calcium 9.3 (8.5-10.1) mg/dL Albumin 3.9 (3.4-5.0) g/dL Pituitary panel 05/11/24 Range/Units 02:06 Sodium 140 (136-145) mmol/L Potassium 3.9 (3.5-5.1) mmol/L Chloride 104 (98-107) mmol/L Carbon Dioxide 26.2 (21.0-32.0) mmol/L BUN 18.0 (7.0-18.0) mg/dL Creatinine 0.89 (0.55-1.02) mg/dL Glucose 127 H (74-106) mg/dL Calcium 9.3 (8.5-10.1) mg/dL Adrenal panel 05/11/24 Range/Units 02:06 Sodium 140 (136-145) mmol/L Potassium 3.9 (3.5-5.1) mmol/L Chloride 104 (98-107) mmol/L Carbon Dioxide 26.2 (21.0-32.0) mmol/L BUN 18.0 (7.0-18.0) mg/dL Creatinine 0.89 (0.55-1.02) mg/dL Glucose 127 H (74-106) mg/dL Calcium 9.3 (8.5-10.1) mg/dL Total Bilirubin 0.5 (0.2-1.0) mg/dL AST 35 (15-37) U/L ALT 70 H (14-59) U/L Alkaline Phosphatase 92 (46-116) U/L Total Protein 7.4 (6.4-8.2) g/dL Albumin 3.9 (3.4-5.0) g/dL All other labs normal. Imaging Abdomen CT scan report/results: report reviewed Assessment and Plan Assessment and Plan (1) Colitis, acute: (2) Bright red rectal bleeding: (3) Hypothyroidism: Qualifiers: Hypothyroidism type: acquired Qualified Code(s): E03.9 - Hypothyroidism, unspecified (4) HTN (hypertension): Qualifiers: Hypertension type: primary hypertension Qualified Code(s): I10 - Essential (primary) hypertension Plan 1. Stool panel 2. symptomatic management 3. clear liquids/broths as tolerated 4. Out patient colonoscopy in 1-2 months
[2024-05-11] MEDS: HYDROCODONE/ACET 5-325 MG TABLET 1 TAB PO (19:45)
[2024-05-11 23:40] LABS: C. Difficile PCR NEGATIVE
[2024-05-12] VITALS: BP 86/50; PULSE 69; TEMP 36.7; O2SAT 93
[2024-05-12 04:00] VITALS: BP 97/62; PULSE 66; TEMP 36.6; O2SAT 93
[2024-05-12] MEDS: CIPROFLOXACIN IN 5 % DEXTROSE 400 MG/200 ML PREMIX 200 MG IV (04:03)
[2024-05-12] MEDS: 0.9 % SODIUM CHLORIDE 1,000 ML 100 ML IV (05:08)
[2024-05-12] MEDS: METRONIDAZOLE/SODIUM CHLORIDE 500 MG/100 ML PREMIX 100 MG IV ×2 (05:08→12:32)
[2024-05-12 05:55] LABS: Basophils Percent Auto 0.4 % (0.2-2.0); Eosinophils Absolute Auto 0.1 10^3/uL (0.0-0.7); Eosinophils Percent Auto 0.9 % (0.9-7.0); Hematocrit 33.8 % (36.0-48.0); Hemoglobin 11.3 g/dL (12.0-16.0); Immature Granulocytes Abs Auto 0.03 10^3/uL (0.00-0.03); Immature Granulocytes Pct Auto 0.3 % (0.0-0.5); Lymphocytes Absolute Auto 2.3 10^3/uL (1.2-3.8); Lymphocytes Percent Auto 22.2 % (20.5-60.0); Mean Corpuscular HGB Conc 33.4 g/dL (29.9-35.2); Mean Corpuscular Hemoglobin 30.6 pg (26.7-34.0); Mean Corpuscular Volume 91.6 fL (81.0-99.0); Mean Platelet Volume 9.3 fL (9.5-13.5); Monocytes Absolute Auto 0.6 10^3/uL (0.3-0.8); Monocytes Percent Auto 5.7 % (1.7-12.0); Neutrophils Absolute Auto 7.2 10^3/uL (1.4-6.5); Neutrophils Percent Auto 70.5 % (43.0-75.0); Platelet Count 197 10^3/uL (150-450); Red Blood Count 3.69 10^6/uL (4.20-5.40); Red Cell Distribution Width 13.1 % (11.0-15.0); White Blood Count 10.2 10^3/uL (4.0-11.0)
[2024-05-12] MEDS: LEVOTHYROXINE SODIUM 125 MCG TABLET PO (05:59)
[2024-05-12 06:10] LABS: Alanine Aminotransferase 40 U/L (14-59); Albumin Globulin Ratio 0.9; Albumin Level 2.6 g/dL (3.4-5.0); Alkaline Phosphatase 60 U/L (46-116); Anion Gap 10.7; Aspartate Amino Transferase 15 U/L (15-37); BUN Creatinine Ratio 6.6; Bilirubin Total 0.5 mg/dL (0.2-1.0); Carbon Dioxide 28.1 mmol/L (21.0-32.0); Chloride 109 mmol/L (98-107); Estimated GFR (African America >60 (>=60 mL/min/1.73m^2); Estimated GFR (Non-African Ame >60 (>=60 mL/min/1.73m^2); Globulin 2.8 g/dL; Glucose 98 mg/dL (74-106); Magnesium 1.8 mg/dL (1.8-2.4); Potassium 3.8 mmol/L (3.5-5.1); Sodium 144 mmol/L (136-145); Total Protein 5.4 g/dL (6.4-8.2)
[2024-05-12 07:47] VITALS: BP 104/68; PULSE 73; TEMP 36.9; O2SAT 93
--- NOTE | 2024-05-12 08:18 | P.PN_ITS ---
Exam Constitutional Vital Signs, click to edit/add: Last Vital Signs Temp 98.5 F 05/12/24 07:47 Pulse 73 05/12/24 07:47 Resp 20 05/12/24 07:47 BP 104/68 05/12/24 07:47 Pulse Ox 93 L 05/12/24 07:47 O2 Del Method Room Air 05/12/24 07:47 Progress Note: Objective Labs Labs: Short CBC 05/12/24 Range/Units 05:37 WBC 10.2 (4.0-11.0) 10^3/uL Hgb 11.3 L (12.0-16.0) g/dL Hct 33.8 L (36.0-48.0) % Plt Count 197 (150-450) 10^3/uL BMP 05/12/24 05:37 Sodium 144 Potassium 3.8 Chloride 109 H Carbon Dioxide 28.1 BUN 5.0 L Creatinine 0.76 Glucose 98 Calcium 8.0 L Liver Function 05/12/24 Range/Units 05:37 Total Bilirubin 0.5 (0.2-1.0) mg/dL AST 15 (15-37) U/L ALT 40 (14-59) U/L Alkaline Phosphatase 60 (46-116) U/L Albumin 2.6 L (3.4-5.0) g/dL Urine 05/11/24 Range/Units 02:18 Urine Color Dk. yellow (YELLOW) Urine Clarity Sl cloudy (CLEAR) Urine pH 5.5 (5.0-9.0) Ur Specific [place] >=1.030 A (1.005-1.025) Urine Protein Negative (NEG/TRACE) mg/dL Urine Glucose (UA) Negative (NEGATIVE) mg/dL Progress Note: A&P Assessment and Plan (1) Colitis, acute: (2) Bright red rectal bleeding: (3) Hypothyroidism: Qualifiers: Hypothyroidism type: acquired Qualified Code(s): E03.9 - Hypothyroidism, unspecified (4) HTN (hypertension): Qualifiers: Hypertension type: primary hypertension Qualified Code(s): I10 - Essential (primary) hypertension
[2024-05-12] MEDS: FLUOXETINE HCL 10 MG CAPSULE PO (08:59)
[2024-05-12] MEDS: MODAFINIL 100 MG TABLET 200 MG PO (08:59)
[2024-05-12] MEDS: LISINOPRIL 10 MG TABLET PO (08:59)
[2024-05-12] MEDS: HYDROCODONE/ACET 5-325 MG TABLET 1 TAB PO ×2 (10:15→15:49)
[2024-05-12 11:25] VITALS: O2SAT 96
--- NOTE | 2024-05-12 11:25 | CM.NOTE ---
Rounds made with Dr. Xiao, will increase pt's diet today. If pt tolerates diet will discharge to home this afternoon and f/u with PCP and general surgery for outpatient Colonoscopy. Pt verbalizes understanding.
[2024-05-12 11:37] VITALS: BP 109/71; PULSE 76; TEMP 36.8; O2SAT 93
--- NOTE | 2024-05-12 12:00 | PM.DS1 ---
DS: Providers Provider Date of admission: 05/11/24 08:25 Primary care physician: Sandeep Lundberg MD Attending physician on admission: Mila Xiao Consults: 05/11/24 08:28 Consult to General Surgeon Routine Consulting Provider: Stan Lundberg Reason for consultation: Acute colitis with BRBPR Has provider been notified: No Discharging clinician: Mila Xiao DS: Diagnosis Discharge Diagnosis (1) Colitis, acute: (2) Bright red rectal bleeding: (3) Hypothyroidism: Qualifiers: Hypothyroidism type: acquired Qualified Code(s): E03.9 - Hypothyroidism, unspecified (4) HTN (hypertension): Qualifiers: Hypertension type: primary hypertension Qualified Code(s): I10 - Essential (primary) hypertension DS: Summary Hospital Course Hospital Course: Patient is a 59 y.o white female with past medical history of hypothyroidism, hypertension, depression and obesity who presented to the ER with a several hour history of nausea/vomiting/ diarrhea. She has been having bright red blood after bowel movements. The ER physician performed a digital rectal exam and noted a large external hemorrhoid. Patient denies fevers or chills but significant diffuse abdominal pain with n/v/d. She has no history of inflammatory bowel disease. Had colonoscopy at 52 years old, normal findings. She recently has been taking ozempic for weight loss. She notes this stomach pain has happened twice recently all after eating fatty foods. Denies fevers, chest pain or shortness of breath ER findings: WBC's 19.8, Hb 14.8, Lactate 1.3, ALT 70; CT of the abdomen showed diffuse colitis most significant in the descending and sigmoid colon with some stool burden in the ascending colon, no free air. Patient was provided pain medication, started on cipro and flagyl and admitted for further plan of care. She continued to tolerated the Cipro Flagyl well, she was advanced to clears by General surgery and tolerated well. At the time of discharge, WBC's have normalized to 10.2, there was drop in hb to 11.3 but Diarrhea stopped and no further blood per rectum. Her abdominal pain has resolved. She would like to go home. I will give her a work note to remain off work until evaluated by PCP. She will complete 7 days of Cipro and Flagyl 500mg BID. She is to return to the ER with fevers, worsening abdominal pain or bleeding. She should have follow up with General surgery 1-2 months for colonoscopy. She plans to stop Ozempic. Stool culture still pending and discussed PCP can follow this, Cdiff was negative. Patient recovered faster than anticipated. Status at Discharge Functional status at discharge: independent ambulation Overall status at discharge: patient is progressing back to baseline Time Spent with Patient Time attestation: Total time spent providing and/or coordinating discharge services: Time spent: greater than 30 minutes Exam Narrative Exam Narrative: General: Patient is alert, and oriented to person, place and time with normal affect, proper hygiene Skin: no visible rashes, or ulcers Head: atraumatic, acephalic Eyes: PERRLA, no nystagmus present, conjunctiva clear, no scleral icterus Ears: normal Tympanic Membrane, normal gross auditory acuity Nose: symmetric, no discharge, no maxillary or frontal sinus tenderness Mouth/Throat: no erythema, exudate, or tonsillar enlargement, normal dentition Neck: no masses palpated, normal thyroid, no JVD or audible carotid bruits Heart: Normal rate and rhythm, no murmurs/rubs/gallops Lungs: no audible wheezes, crackles and normal breath sounds all lung soler Abdomen: hyperactive bowel sounds, no distension, No palpable masses, no pain with palpation Musculoskeletal: no swelling bilateral lower extremities Neuro: CN II-X grossly intact Constitutional Vital Signs, click to edit/add: Last Vital Signs Temp 98.3 F 05/12/24 11:37 Pulse 76 05/12/24 11:37 Resp 20 05/12/24 07:47 BP 109/71 05/12/24 11:37 Pulse Ox 93 L 05/12/24 11:37 O2 Del Method Room Air 05/12/24 11:37 DS: Data Data Completed and Pending Labs on day of discharge: Labs from last 24 hours 05/12/24 05/11/24 05:37 14:15 WBC 10.2 RBC 3.69 L Hgb 11.3 L Hct 33.8 L MCV 91.6 MCH 30.6 MCHC 33.4 RDW 13.1 Plt Count 197 MPV 9.3 L Neut % (Auto) 70.5 Lymph % (Auto) 22.2 Simpson % (Auto) 5.7 Eos % (Auto) 0.9 Baso % (Auto) 0.4 Neut # (Auto) 7.2 H Lymph # (Auto) 2.3 Simpson # (Auto) 0.6 Eos # (Auto) 0.1 Baso # (Auto) 0.0 Abs Immat Gran (auto) 0.03 Imm/Tot Granulo (auto) 0.3 Sodium 144 Potassium 3.8 Chloride 109 H Carbon Dioxide 28.1 Anion Gap 10.7 BUN 5.0 L Creatinine 0.76 Est GFR ( Amer) >60 Est GFR (Non-Af Amer) >60 BUN/Creatinine Ratio 6.6 Glucose 98 Calcium 8.0 L Magnesium 1.8 Total Bilirubin 0.5 AST 15 ALT 40 Alkaline Phosphatase 60 Total Protein 5.4 L Albumin 2.6 L Globulin 2.8 Albumin/Globulin Ratio 0.9 C. difficile Toxin PCR Negative Discharge Plan Discharge Disposition: Home, Self-Care Discharge Medications: New ciprofloxacin HCl 500 mg tablet 500 mg PO BID 7 Days Qty: 14 0RF metronidazole 500 mg tablet 500 mg PO BID 7 Days Qty: 14 0RF Continued modafinil 200 mg tablet 200 mg PO DAILY levothyroxine 125 mcg tablet 125 mcg PO DAILY lisinopril 10 mg tablet 10 mg PO DAILY fluoxetine 10 mg capsule 10 mg PO DAILY Discontinued Ozempic 0.25 mg or 0.5 mg (2 mg/3 mL) pen injector 0.25 mg subcut QWEEK Rx Instructions: for 4 weeks Activity: increase activity as tolerated Diet: other Diet Detail: bland diet Print Language: Macanese Patient Instructions: Colitis (ED), GI (Gastrointestinal) Soft Diet (DC) Forms: Portal Instructions Follow Up Appointments: Follow up with PCP 3-5 days, Please Give work note to remain off work until seen by PCP.
--- NOTE | 2024-05-13 13:57 | CM.DCFOLLOWU ---
Person spoke with: patient How are you feeling?pretty good, taking it easy How is your pain? not bad today, last night was a little pain Did you understand your discharge instructions?yes Do you have any questions about your discharge instructions?no Were you given any prescriptions at discharge?yes Were you able to get your prescriptions filled?yes Do you understand how to take your medications as ordered?yes Do you have any questions about your follow up appointment and do you plan to keep your follow up appointment? no questions. follow ups reviewed Is there anything else that you would like to discuss?no Questions/Comments/Concerns/Other:no
== END 2024-05-12 16:04 | disposition home or self-care (01) | DRG 392 ==
LOC: ER 04:26 → MS 05:02
PROVIDERS: Registered Nurse; Admitting Provider Family Medicine; Emergency Provider Internal Medicine; PCP Family Medicine; Visit Provider Family Medicine
DX: K52.9 Noninfective gastroenteritis and colitis, unspecified (principal); K62.5 Hemorrhage of anus and rectum; K64.4 Residual hemorrhoidal skin tags; E03.9 Hypothyroidism, unspecified; F32.A Depression, unspecified; G47.33 Obstructive sleep apnea (adult) (pediatric); I10 Essential (primary) hypertension; Z79.890 Hormone replacement therapy; Z79.899 Other long term (current) drug therapy; Z88.0 Allergy status to penicillin
CPT/HCPCS: 36415; 74177; 80053; 81003; 83605; 83690; 83735; 85025; 87045; 87046; 87427; 87493; 94761; 96361; 96374; 96375; 96376; 99285; G0378; J0744; J1171; J1836; J2270; J2405; Q9966; Q9967

== ENCOUNTER 2024-05-19 11:12 | Outpatient (OUT) | payer BC, SELFPAY ==
[2024-05-19 11:30] LABS: Basophils Absolute Auto 0.1 10^3/uL (0.0-0.1); Basophils Percent Auto 0.6 % (0.2-2.0); Eosinophils Percent Auto 0.2 % (0.9-7.0); Hematocrit 43.1 % (36.0-48.0); Hemoglobin 14.3 g/dL (12.0-16.0); Immature Granulocytes Abs Auto 0.07 10^3/uL (0.00-0.03); Immature Granulocytes Pct Auto 0.7 % (0.0-0.5); Lymphocytes Absolute Auto 1.9 10^3/uL (1.2-3.8); Lymphocytes Percent Auto 19.6 % (20.5-60.0); Mean Corpuscular HGB Conc 33.2 g/dL (29.9-35.2); Mean Corpuscular Hemoglobin 29.6 pg (26.7-34.0); Mean Corpuscular Volume 89.2 fL (81.0-99.0); Monocytes Absolute Auto 0.6 10^3/uL (0.3-0.8); Monocytes Percent Auto 5.6 % (1.7-12.0); Neutrophils Absolute Auto 7.3 10^3/uL (1.4-6.5); Neutrophils Percent Auto 73.3 % (43.0-75.0); Platelet Count 298 10^3/uL (150-450); Red Blood Count 4.83 10^6/uL (4.20-5.40); Red Cell Distribution Width 12.6 % (11.0-15.0); White Blood Count 9.9 10^3/uL (4.0-11.0)
[2024-05-19 11:50] LABS: Erythrocyte Sedimentation Rate 45 mm/hr (<=30)
[2024-05-19 12:38] LABS: Alanine Aminotransferase 51 U/L (14-59); Albumin Globulin Ratio 1.1; Albumin Level 3.9 g/dL (3.4-5.0); Alkaline Phosphatase 77 U/L (46-116); Anion Gap 15.8; Aspartate Amino Transferase 29 U/L (15-37); BUN Creatinine Ratio 24.4; Bilirubin Total 0.5 mg/dL (0.2-1.0); C Reactive Protein <0.50 mg/dL (<=0.50); Calcium 9.9 mg/dL (8.5-10.1); Chloride 103 mmol/L (98-107); Estimated GFR (African America >60 (>=60 mL/min/1.73m^2); Estimated GFR (Non-African Ame >60 (>=60 mL/min/1.73m^2); Globulin 3.6 g/dL; Glucose 102 mg/dL (74-106); Potassium 3.8 mmol/L (3.5-5.1); Sodium 140 mmol/L (136-145); Total Protein 7.5 g/dL (6.4-8.2)
== END 2024-05-19 11:13 | disposition home or self-care (01) ==
LOC: LAB 11:15
PROVIDERS: PCP Family Medicine; Visit Provider Family Medicine
DX: K52.9 Noninfective gastroenteritis and colitis, unspecified (principal)
CPT/HCPCS: 36415; 80053; 85025; 85652; 86140

== ENCOUNTER 2024-08-01 12:44 | Outpatient (OUT) | payer BC, SELFPAY ==
--- OUTSIDE RECORDS SUMMARY | 2024-08-01 12:53 | XMS_ITS | CCD ---
Author Organization [facility] Care Team Providers Care Transportation Planning Engineer Name Role Phone SAULO, DR CAMERON Primary Care Unavailable DAVIE, DR NOBLE Admitting [...] Unavailable Rakesh Lundberg MD Primary Care Provider [phone] RAKESH LUNDBERG Primary Care Unavailable RAJ DENNISON Attending Unavailable Rakesh Lundberg MD Primary Care Provider [phone] DAVE ORTEGA Attending Unavailable BREANN TALLEY Attending Unavailable Kana Montilla Attending Unavailable Kana Montilla Admitting Unavailable Rakesh Lundberg Primary Care Unavailable Allergies Allergy Classification Reported Allergen(s) Allergy Type Date of Onset Reaction(s) Facility (2 sources) Codeine; Translations: [CODEINE] Drug Allergy 4 [facility] Repository (1 source) diphenhydrAMINE Drug Allergy 6 [facility] Repository (1 source) Erythromycin Drug Allergy 4 [facility] Repository (1 source) Penicillins Drug allergy (disorder) 4 [facility] Repository (1 source) Penicillin Drug Allergy [facility] [employer] Other (2 sources) Amoxicillin; Translations: [AMOXICILLIN] Drug Allergy 3 Rash [facility] (1 source) Codeine Drug Allergy 4 Anxiety [facility] Work Phone: (1 source) Codeine Drug Allergy 4 [facility] Repository (1 source) Erythromycin Drug Allergy 4 [facility] Repository (1 source) Penicillins Drug allergy (disorder) 4 [facility] Repository Medications Current Medications Medication Drug Class(es) Dates [...] D DEFICIENCY UNSPECIFIED] Onset: 08-09-2022 Chronic Other gastrointestinal disorders (1 source) Change in bowel habit; Translations: [Change in bowel habit] Onset: 06-18-2024 Episodic Other injuries and conditions due to [...] Test Name Value Interpretation Reference Range Facility [facility] labson 05-11-2024 [facility] CBC W Auto Differential pane l (Bld)on 08-07-2023 Basophils (Bld) [#/Vol] 0.03 10*3/uL [facility] Basophils/100 WBC (Bld) 0.4 % 0.0 - 2.0 % [facility] Eosinophils (Bld) [#/Vol] 0.06 10*3/uL [facility] Eosinophils/100 WBC (Bld) 0.9 % 0.0 - 6.0 % [facility] Erythrocyte distribution width (RBC) [Ratio] 13.2 % 11.5 - 14.5 % [facility] Hematocrit (Bld) [Volume fraction] 41.6 % 36.0 - 46.0 % [facility] Hemoglobin (Bld) [Mass/Vol] 13.8 g/dL 12.0 - 16.0 g/dL [facility] Immature granulocytes (Bld) [#/Vol] 0.07 10*3/uL [facility] Immature granulocytes/100 WBC (Bld) 1.0 % High 0.0 - 0.9 % [facility] Comment on above: Immature Granulocyte Count (IG) includes promyelocytes, myelocytes and metamyelocytes but does not include bands. Percent differential counts (%) should be interpreted in the context of the absolute cell counts (cells/UL). Interpretation and review of laboratory results Abnormal [facility] Lymphocytes (Bld) [#/Vol] 2.17 10*3/uL [facility] Lymphocytes/100 WBC (Bld) 32.1 % 13.0 - 44.0 % [facility] MCH (RBC) [Entitic mass] 29.6 pg 26.0 - 34.0 pg [facility] MCHC (RBC) [Mass/Vol] 33.2 g/dL 32.0 - 36.0 g/dL [facility] MCV (RBC) [Entitic vol] 89 fL 80 - 100 fL [facility] Monocytes (Bld) [#/Vol] 0.32 10*3/uL [facility] Monocytes/100 WBC (Bld) 4.7 % 2.0 - 10.0 % [facility] Neutrophils (Bld) [#/Vol] 4.12 10*3/uL [facility] Comment on above: Percent differential counts (%) should be interpreted in the context of the absolute cell counts (cells/uL). Neutrophils/100 WBC (Bld) 60.9 % 40.0 - 80.0 % [facility] Nucleated RBC/100 WBC (Bld) [Ratio] 0.0 % [facility] Platelets (Bld) [#/Vol] 234 10*3/uL [facility] RBC (Bld) [#/Vol] 4.66 10*6/uL [facility] WBC (Bld) [#/Vol] 6.8 10*3/uL [facility] Basophils (Bld) [#/Vol] 0.03 x10*3/uL Normal 0.00-0.10 [facility] Comment on above: Performed By: #### 5 7021-8 #### MIK FREITAS ([id number]) [facility] [place] [address] [place] [address] Basophils/100 WBC (Bld) 0.4 % Normal 0.0-2.0 [facility] Comment on above: Performed By: #### 5 7021-8 #### MIK FREITAS ([id number]) [facility] ([facility] [address] [place] [address] Eosinophils (Bld) [#/Vol] 0.06 x10*3/uL Normal 0.00-0.70 [facility] Comment on above: Performed By: #### 5 7021-8 #### MIK FREITAS ([id number]) [facility] ([facility] [address] [place] [address] Eosinophils/100 WBC (Bld) 0.9 % Normal 0.0-6.0 [facility] Comment on above: Performed By: #### 5 7021-8 #### MIK FREITAS ([id number]) [facility] ([facility] [address] [place] [address] Erythrocyte distribution width (RBC) [Ratio] 13.2 % Normal 11.5-14.5 [facility] Comment on above: Performed By: #### 5 7021-8 #### MIK FREITAS ([id number]) [facility] ([facility] [address] [place] [address] Hematocrit (Bld) [Volume fraction] 41.6 % Normal 36.0-46.0 [facility] Comment on above: Performed By: #### 5 7021-8 #### MIK FREITAS ([id number]) [facility] ([facility] [address] [place] [address] Hemoglobin (Bld) [Mass/Vol] 13.8 g/dL Normal 12.0-16.0 [facility] Comment on above: Performed By: #### 5 7021-8 #### MIK FREITAS ([id number]) [facility] ([facility] [address] [place] [address] Immature granulocytes (Bld) [#/Vol] 0.07 x10*3/uL Normal 0.00-0.70 [facility] Comment on above: Performed By: #### 5 7021-8 #### MIK FREITAS ([id number]) [facility] ([facility] [address] [place] [address] Immature granulocytes/100 WBC (Bld) 1.0 % High 0.0-0.9 [facility] Comment on above: Result Comment: Azul ture Granulocyte Count (IG) includes promyelocytes, myelocytes and metamyelocytes but does not include bands. Percent differential counts (%) should be interpreted in the context of the absolute cell counts (cells/UL). Performed By: #### 5 7021-8 #### MIK FREITAS ([id number]) [facility] ([facility] [address] [place] [address] Lymphocytes (Bld) [#/Vol] 2.17 x10*3/uL Normal 1.20-4.80 [facility] Comment on above: Performed By: #### 5 7021-8 #### MIK FREITAS ([id number]) [facility] ([facility] [address] [place] [address] Lymphocytes/100 WBC (Bld) 32.1 % Normal 13.0-44.0 [facility] Comment on above: Performed By: #### 5 7021-8 #### MIK FREITAS ([id number]) [facility] ([facility] [address] [place] [address] MCH (RBC) [Entitic mass] 29.6 pg Normal 26.0-34.0 [facility] Comment on above: Performed By: #### 5 7021-8 #### MIK FREITAS ([id number]) [facility] ([facility] [address] [place] [address] MCHC (RBC) [Mass/Vol] 33.2 g/dL Normal 32.0-36.0 [facility] Comment on above: Performed By: #### 5 7021-8 #### MIK FREITAS ([id number]) [facility] ([facility] [address] [place] [address] MCV (RBC) [Entitic vol] 89 fL Normal 80-100 [facility] Comment on above: Performed By: #### 5 7021-8 #### MIK FREITAS ([id number]) [facility] ([facility] [address] [place] [address] Monocytes (Bld) [#/Vol] 0.32 x10*3/uL Normal 0.10-1.00 [facility] Comment on above: Performed By: #### 5 7021-8 #### MIK FREITAS ([id number]) [facility] ([facility] [address] [place] [address] Monocytes/100 WBC (Bld) 4.7 % Normal 2.0-10.0 [facility] Comment on above: Performed By: #### 5 7021-8 #### MIK FREITAS ([id number]) [facility] ([facility] [address] [place] [address] Neutrophils (Bld) [#/Vol] 4.12 x10*3/uL Normal 1.20-7.70 [facility] Comment on above: Result Comment: Perc ent differential counts (%) should be interpreted in the context of the absolute cell counts (cells/uL). Performed By: #### 5 7021-8 #### MIK FREITAS ([id number]) [facility] ([facility] [address] [place] [address] Neutrophils/100 WBC (Bld) 60.9 % Normal 40.0-80.0 [facility] Comment on above: Performed By: #### 5 7021-8 #### MIK FREITAS ([id number]) [facility] ([facility] [address] [place] [address] Nucleated RBC/100 WBC (Bld) [Ratio] 0.0 /100 WBCs Normal 0.0-0.0 [facility] Comment on above: Performed By: #### 5 7021-8 #### MIK FREITAS ([id number]) [facility] ([facility] [address] [place] [address] Platelets (Bld) [#/Vol] 234 x10*3/uL Normal 150-450 [facility] Comment on above: Performed By: #### 5 7021-8 #### MIK FREITAS ([id number]) [facility] ([facility] [address] [place] [address] RBC (Bld) [#/Vol] 4.66 x10*6/uL Normal 4.00-5.20 [facility] Comment on above: Performed By: #### 5 7021-8 #### MIK FREITAS ([id number]) [facility] ([facility] [address] [place] [address] WBC (Bld) [#/Vol] 6.8 x10*3/uL Normal 4.4-11.3 [facility] Comment on above: Performed By: #### 5 7021-8 #### MIK FREITAS ([id number]) [facility] ([facility] [address] [place] [address] CT CERVICAL SPINE WO IV CONT RASTon 08-07-2023 CT CERVICAL SPINE WO IV CONTRAST Interpreted By: Willy Anderson, STUDY: CT CERVICAL SPINE WO IV CONTRAST; 08/07/2023 9:01 am INDICATION: Signs/Symptoms:Mechan ical fall, no thinners, positive LOC. COMPARISON: None. ACCESSION NUMBER(S): [id number] ORDERING CLINICIAN: DIMPLE MADRID TECHNIQUE: Axial CT [...] Willy Anderson 08/07/2023 9:41 AM Dictation workstation: [id number] [facility] CT Cervical spine WO contras ton 08-07-2023 No evidence for an acute fracture or subluxation of the cervical spine. MACRO: None Signed by: Willy Anderson 08/07/2023 9:41 AM Dictation workstation: [id number] [facility] Interpreted By: Willy Anderson, STUDY: CT CERVICAL SPINE WO IV CONTRAST; 08/07/2023 9:01 am INDICATION: Signs/Symptoms:Mechan ical fall, no thinners, positive LOC. COMPARISON: None. ACCESSION NUMBER(S): [id number] ORDERING CLINICIAN: DIMPLE MADRID TECHNIQUE: Axial CT [...] tissues are otherwise unremarkable. Lung Apices: Unremarkable. MMODAL Willy Anderson MD - 08/07/2023 Interpreted By: Willy Anderson, STUDY: CT CERVICAL SPINE WO IV CONTRAST; 08/07/2023 9:01 am INDICATION: Signs/Symptoms:Mechan ical fall, no thinners, positive LOC. COMPARISON: None. ACCESSION NUMBER(S): [id number] ORDERING CLINICIAN: DIMPLE MADRID TECHNIQUE: Axial CT [...] Willy Anderson 08/07/2023 9:41 AM Dictation workstation: [id number] [facility] Work Phone: [facility] Work Phone: CT HEAD WO IV CONTRASTon CT HEAD WO IV CONTRAST Interpreted By: Willy Anderson, STUDY: CT HEAD WO IV CONTRAST; 08/07/2023 9:01 am INDICATION: Signs/Symptoms:Mechan ical fall, no thinners, positive LOC. COMPARISON: None. ACCESSION NUMBER(S): [id number] ORDERING CLINICIAN: DIMPLE MADRID TECHNIQUE: Noncontrast axial [...] Willy Anderson 08/07/2023 9:38 AM Dictation workstation: [id number] [facility] CT Head WO contraston 2023 No acute intracrania l hemorrhage, mass effect, or calvarial fracture. MACRO: None Signed by: Willy Anderson 08/07/2023 9:38 AM Dictation workstation: [id number] [facility] Interpreted By: Willy Anderson, STUDY: CT HEAD WO IV CONTRAST; 08/07/2023 9:01 am INDICATION: Signs/Symptoms:Mechan ical fall, no thinners, positive LOC. COMPARISON: None. ACCESSION NUMBER(S): [id number] ORDERING CLINICIAN: DIMPLE MADRID TECHNIQUE: Noncontrast axial [...] Normal. Soft tissues: Unremarkable. [facility] Willy Andersno MD - 08/07/2023 Interpreted By: Willy Anderson, STUDY: CT HEAD WO IV CONTRAST; 08/07/2023 9:01 am INDICATION: Signs/Symptoms:Mechan ical fall, no thinners, positive LOC. COMPARISON: None. ACCESSION NUMBER(S): [id number] ORDERING CLINICIAN: DIMPLE MADRID TECHNIQUE: Noncontrast axial [...] Willy Anderson 08/07/2023 9:38 AM Dictation workstation: [id number] [facility] Work Phone: CT Head WO contrastOrdered B y: Willy Anderson on 08-07-2023 [facility] Work Phone: CT THORACIC SPINE WO IV CONT RASTon 08-07-2023 CT THORACIC SPINE WO IV CONTRAST Interpreted By: Willy Anderson, STUDY: CT THORACIC SPINE WO IV CONTRAST; 08/07/2023 9:01 am INDICATION: Signs/Symptoms:Mechan ical fall, no thinners, positive LOC, thoracic spinal tenderness. COMPARISON: None. ACCESSION NUMBER(S): [id number] ORDERING CLINICIAN: DIMPLE MADRID TECHNIQUE: Axial CT [...] Willy Anderson 08/07/2023 9:48 AM Dictation workstation: [id number] [facility] CT Thoracic spine WO contras ton 08-07-2023 No acute osseous abnormality of the thoracic spine. Mild chronic appearing anterior wedging of a few scattered thoracic vertebral bodies as above. MACRO: None Signed by: Willy Anderson 08/07/2023 9:48 AM Dictation workstation: [id number] [facility] Interpreted By: Willy Anderson, STUDY: CT THORACIC SPINE WO IV CONTRAST; 08/07/2023 9:01 am INDICATION: Signs/Symptoms:Mechan ical fall, no thinners, positive LOC, thoracic spinal tenderness. COMPARISON: None. ACCESSION NUMBER(S): [id number] ORDERING CLINICIAN: DIMPLE MADRID TECHNIQUE: Axial CT [...] dependent atelectasis within the visualized lung bases. [facility] MMODAL Willy Anderson MD - 08/07/2023 Interpreted By: Willy Anderson, STUDY: CT THORACIC SPINE WO IV CONTRAST; 08/07/2023 9:01 am INDICATION: Signs/Symptoms:Mechan ical fall, no thinners, positive LOC, thoracic spinal tenderness. COMPARISON: None. ACCESSION NUMBER(S): [id number] ORDERING CLINICIAN: DIMPLE MADRID TECHNIQUE: Axial CT [...] Willy Anderson 08/07/2023 9:48 AM Dictation workstation: [id number] [facility] Work Phone: [facility] Work Phone: Coagulation tissue factor in ducedon 08-07-2023 PT Coag (PPP) [Time] 11.1 s Normal 9.8-12.8 [facility] Comment on above: Performed By: #### 5 902-2 #### MIK FREITAS ([id number]) [facility] ([facility] [address] [place] [address] Comprehensive metabolic 2000 panelon 08-07-2023 Albumin BCP dye [Mass/Vol] 4.7 g/dL 3.4 - 5.0 g/dL [facility] ALP [Catalytic activity/Vol] 61 U/L 33 - 110 U/L [facility] ALT With P-5'-P [Catalytic activity/Vol] 27 U/L 7 - 45 U/L [facility] Comment on above: Patients treated wit h Sulfasalazine may generate falsely decreased results for ALT. Anion gap [Moles/Vol] 11 mmol/L 10 - 20 mmol/L [facility] AST With P-5'-P [Catalytic activity/Vol] 23 U/L 9 - 39 U/L [facility] Bilirubin [Mass/Vol] 0.5 mg/dL 0.0 - 1 .2 mg/dL [facility] Calcium [Mass/Vol] 9.4 mg/dL 8.6 - 10. 3 mg/dL [facility] Chloride [Moles/Vol] 101 mmol/L 98 - 10 7 mmol/L [facility] CO2 [Moles/Vol] 28 mmol/L 21 - 32 mmol/L [facility] Creatinine [Mass/Vol] 0.75 mg/dL 0.50 - 1.05 mg/dL [facility] eGFR - PINF [facility] Comment on above: Calculations of danielle mated GFR are performed using the 2020 CKD-EPI Study Refit equation without the race variable for the IDMS-Traceable creatinine methods. https://jasn.asnjournals.org/content/early/ASN.1262965 988 Glucose [Mass/Vol] 108 mg/dL High 74 - 99 mg/dL [facility] Interpretation and review of laboratory results Abnormal [facility] Potassium [Moles/Vol] 3.8 mmol/L 3.5 - 5.3 mmol/L [facility] Protein [Mass/Vol] 7.8 g/dL 6.4 - 8.2 g/dL [facility] Sodium [Moles/Vol] 136 mmol/L 136 - 145 mmol/L [facility] Urea nitrogen [Mass/Vol] 13 mg/dL 6 - 23 mg/dL [facility] Albumin BCP dye [Mass/Vol] 4.7 g/dL Normal 3.4-5.0 [facility] Comment on above: Performed By: #### 2 4323-8 #### MIK FREITAS ([id number]) [facility] ([facility] [address] [place] [address] ALP [Catalytic activity/Vol] 61 U/L Normal 33-110 [facility] Comment on above: Performed By: #### 2 4323-8 #### MIK FREITAS ([id number]) [facility] ([facility] [address] [place] [address] ALT With P-5'-P [Catalytic activity/Vol] 27 U/L Normal 7-45 [facility] Comment on above: Result Comment: [place] ents treated with Sulfasalazine may generate falsely decreased results for ALT. Performed By: #### 2 4323-8 #### MIK FREITAS ([id number]) [facility] ([facility] [address] [place] [address] Anion gap [Moles/Vol] 11 mmol/L Normal 10-20 [facility] Comment on above: Performed By: #### 2 4323-8 #### MIK FREITAS ([id number]) [facility] ([facility] [address] [place] [address] AST With P-5'-P [Catalytic activity/Vol] 23 U/L Normal 9-39 [facility] Comment on above: Performed By: #### 2 4323-8 #### MIK FREITAS ([id number]) [facility] ([facility] [address] [place] [address] Bilirubin [Mass/Vol] 0.5 mg/dL Normal 0.0-1.2 [facility] Comment on above: Performed By: #### 2 4323-8 #### MIK FREITAS ([id number]) [facility] ([facility] [address] [place] [address] Calcium [Mass/Vol] 9.4 mg/dL Normal 8.6-10.3 [facility] Comment on above: Performed By: #### 2 4323-8 #### MIK FREITAS ([id number]) [facility] ([facility] [address] [place] [address] Chloride [Moles/Vol] 101 mmol/L Normal 98-107 [facility] Comment on above: Performed By: #### 2 4323-8 #### MIK FREITAS ([id number]) [facility] ([facility] [address] [place] [address] CO2 [Moles/Vol] 28 mmol/L Normal 21-32 [facility] Comment on above: Performed By: #### 2 4323-8 #### MIK FREITAS ([id number]) [facility] ([facility] [address] [place] [address] Creatinine [Mass/Vol] 0.75 mg/dL Normal 0.50-1.05 [facility] Comment on above: Performed By: #### 2 4323-8 #### MIK FREITAS ([id number]) [facility] ([facility] [address] [place] [address] GFR/1.73 sq M.predicted MDRD (S/P/Bld) [Vol rate/Area] mL/min/{1.73_m2} Normal >60 [facility] Comment on above: Result Comment: Calc ulations of estimated GFR are performed using the 2020 CKD-EPI Study Refit equation without the race variable for the IDMS-Traceable creatinine methods. https://jasn.asnjournals.org/content//ASN.6135272 988 Performed By: #### 2 4323-8 #### MIK FREITAS ([id number]) [facility] ([facility] [address] [place] [address] Glucose [Mass/Vol] 108 mg/dL High 74-99 [facility] Comment on above: Performed By: #### 2 4323-8 #### MIK FREITAS ([id number]) [facility] ([facility] [address] [place] [address] Potassium [Moles/Vol] 3.8 mmol/L Normal 3.5-5.3 [facility] Comment on above: Performed By: #### 2 4323-8 #### MIK FREITAS ([id number]) [facility] ([facility] [address] [place] [address] Protein [Mass/Vol] 7.8 g/dL Normal 6.4-8.2 [facility] Comment on above: Performed By: #### 2 4323-8 #### MIK FREITAS ([id number]) [facility] ([facility] [address] [place] [address] Sodium [Moles/Vol] 136 mmol/L Normal 136-145 [facility] Comment on above: Performed By: #### 2 4323-8 #### MIK FREITAS ([id number]) [facility] ([facility] [address] [place] [address] Urea nitrogen [Mass/Vol] 13 mg/dL Normal - [facility] Comment on above: Performed By: #### 2 4323-8 #### MIK FREITAS ([id number]) [facility] ([facility] [address] [place] [address] ECG 12-LEADon 08-07-2023 ECG 12-LEAD Ventricular Rate 73 Atrial Rate 73 P-R Interval 168 QRS Duration 70 Q-T Interval 392 QTC Calculation(Bazett) 431 P [place] 32 R [place] 43 T [place] 24 QRS Count 12 Q Onset 225 P Onset 141 P Offset 194 T Offset 421 QTC [place] 418 Diagnosis Normal sinus rhythm Septal infarct , age undetermined Abnormal ECG No previous ECGs available Confirmed by Josie Anthony ([id number]) on 08/29/2023 9:59:19 PM Normal [facility] No Panel Informationon 08-07 Radiology Study observation (narrative) [facility] Work Phone: PT Coag (PPP) [Time]on 08-07 INR Coag (PPP) [Relative time] 1.0 {INR} 0.9 - 1.1 [facility] Interpretation and review of laboratory results Normal [facility] INR Coag (PPP) [Relative time] 1.0 Normal 0.9-1.1 [facility] Comment on above: Performed By: #### 5 902-2 #### MIK FREITAS ([id number]) [facility] ([facility] [address] [place] [address] Protime-INRon 08-07-2023 PT Coag (PPP) [Time] 11.1 s [facility] CBC AUTO DIFFon 08-08-2022 BASO # 0.0 103/ul Normal 0.0-0.1 [facility] Comment on above: Performed By: #### C BC #### [facility] [address] [place] [address] Dr. Enrique Parkinson Basophils/100 WBC (Bld) 0.6 % Normal 0.2-2.0 [facility] Comment on above: Performed By: #### C BC #### [facility] [address] [place] [address] Dr. Enrique Parkinson EO # 0.1 103/ul Normal 0.0-0.7 [facility] Comment on above: Performed By: #### C BC #### [facility] [address] [place] [address] Dr. Enrique Parkinson Eosinophils/100 WBC (Bld) 0.9 % Normal 0.9-7.0 [facility] Comment on above: Performed By: #### C BC #### [facility] [address] [place] [address] Dr. Enrique Parkinson Erythrocyte distribution width (RBC) [Ratio] 12.9 % Normal 11.0-15.0 [facility] Comment on above: Performed By: #### C BC #### [facility] [address] [place] [address] Dr. Enrique Parkinson Hematocrit (Bld) [Volume fraction] 41.5 % Normal 36.0-48.0 [facility] Comment on above: Performed By: #### C BC #### [facility] [address] [place] [address] Dr. Enrique Parkinson Hemoglobin (Bld) [Mass/Vol] 14.3 g/dL Normal 12.0-16.0 [facility] Comment on above: Performed By: #### C BC #### [facility] [address] [place] [address] Dr. Enrique Parkinson IG # 0.02 10e3/ul Normal 0.00-0.03 [facility] Comment on above: Performed By: #### C BC #### [facility] [address] [place] [address] Dr. Enrique Parkinson IG % 0.3 % Normal 0.0-0.5 [facility] Comment on above: Performed By: #### C BC #### [facility] [address] [place] [address] Dr. Enrique Parkinson LYMPH # 1.8 103/ul Normal 1.2-3.8 [facility] Comment on above: Performed By: #### C BC #### [facility] [address] [place] [address] Dr. Enrique Parkinson Lymphocytes/100 WBC (Bld) 25.9 % Normal 20.5-60.0 [facility] Comment on above: Performed By: #### C BC #### [facility] [address] [place] [address] Dr. Enrique Parkinson MANUAL DIFF REQ NO Normal [facility] Comment on above: Performed By: #### C BC #### [facility] [address] [place] [address] Dr. Enrique Parkinson MCH (RBC) [Entitic mass] 30.2 pg Normal 26.7-34.0 [facility] Comment on above: Performed By: #### C BC #### [facility] [address] [place] [address] Dr. Enrique Parkinson MCHC (RBC) [Mass/Vol] 34.5 g/dL Normal 29.9-35.2 [facility] Comment on above: Performed By: #### C BC #### [facility] [address] [place] [address] Dr. Enrique Parkinson MCV (RBC) [Entitic vol] 87.6 fL Normal 81.0-99.0 [facility] Comment on above: Performed By: #### C BC #### [facility] [address] [place] [address] Dr. Enrique Parkinson MONO # 0.4 103/ul Normal 0.3-0.8 [facility] Comment on above: Performed By: #### C BC #### [facility] [address] [place] [address] Dr. Enrique Parkinson Monocytes/100 WBC (Bld) 5.1 % Normal 1.7-12.0 [facility] Comment on above: Performed By: #### C BC #### [facility] [address] [place] [address] Dr. Enrique Parkinson NEUT # 4.6 103/ul Normal 1.4-6.5 [facility] Comment on above: Performed By: #### C BC #### [facility] [address] [place] [address] Dr. Enrique Parkinson Neutrophils/100 WBC (Bld) 67.2 % Normal 43.0-75.0 [facility] Comment on above: Performed By: #### C BC #### [facility] [address] [place] [address] Dr. Enrique Parkinson Platelet mean volume (Bld) [Entitic vol] 9.2 fL Critically low 9.5-13.5 [facility] Comment on above: Performed By: #### C BC #### [facility] [address] [place] [address] Dr. Enrique Parkinson PLT 246 103/ul Normal 150-450 [facility] Comment on above: Performed By: #### C BC #### [facility] [address] [place] [address] Dr. Enrique Parkinson RBC 4.74 106/ul Normal 4.20-5.40 [facility] Comment on above: Performed By: #### C BC #### [facility] [address] [place] [address] Dr. Enrique Parkinson WBC 6.9 103/ul Normal 4.0-11.0 [facility] Comment on above: Performed By: #### C BC #### [facility] [address] [address] [address] Enrique Parkinson FREE T3on 08-08-2022 FREE T3 2.43 pg/mlL Normal 2.18-3.98 [facility] Comment on above: Performed By: #### T 4, TSH, LIPID, CMP, FT3 #### [facility] [address] [address] [address] Enrique Parkinson GLYCOHEMOGLOBIN A1Con 2022 ADA RECOMMENDATION SEE BELOW Normal [facility] Comment on above: Result Comment: ADA RECOMMENDED LIMIT 4.0 - 6.0 ADA THERAPEUTIC TARGET < 7.0 ACTION SUGGESTED > 7.0 Performed By: #### A 1C #### [facility] [address] [place] [address] Dr. Enrique Parkinson Glucose [Mass/Vol] 114 mg/dL Normal [facility] Comment on above: Performed By: #### A 1C #### [facility] [address] [address] [address] Enrique Parkinson HbA1c (Bld) [Mass fraction] 5.6 % Normal 4.5-6.2 [facility] Comment on above: Performed By: #### A 1C #### [facility] [address] [address] [address] Enrique Parkinson LIPID PROFILEon 08-08-2022 CHOL-HDL RATIO NORM SEE BELOW Normal [facility] Comment on above: Result Comment: 3.3 - 4.4 LOW RISK 4.4 - 7.1 AVERAGE RISK 7.1 - 11.0 MODERATE RISK >11.0 HIGH RISK Performed By: #### T 4, TSH, LIPID, CMP, FT3 #### [facility] [address] [address] [address] Enrique Parkinson Cholesterol [Mass/Vol] 241 mg/dL Critically high <=200 [facility] Comment on above: Performed By: #### T 4, TSH, LIPID, CMP, FT3 #### [facility] [address] [address] [address] Enrique Parkinson Cholesterol in HDL [Mass/Vol] 45 mg/dL Normal 40-60 [facility] Comment on above: Performed By: #### T 4, TSH, LIPID, CMP, FT3 #### [facility] [address] [address] [address] Enrique Parkinson Cholesterol in LDL [Mass/Vol] 131.2 mg/dL Normal [facility] Comment on above: Performed By: #### T 4, TSH, LIPID, CMP, FT3 #### [facility] [address] [place] [address] Dr. Enrique Parkinson Cholesterol.total/Ch olesterol in HDL [Mass ratio] 5.4 {ratio} Normal [facility] Comment on above: Performed By: #### T 4, TSH, LIPID, CMP, FT3 #### [facility] [address] [place] [address] Dr. Enrique Parkinson HDL NORMAL > or = 60 mg/dl - LO W CARDIOVASCULAR RISK <40 mg/dl - HIGH CARDIOVASCULAR RISK Normal [facility] Comment on above: Performed By: #### T 4, TSH, LIPID, CMP, FT3 #### [facility] [address] [place] [address] Dr. Enrique Parkinson LDL CALC NORMAL SEE BELOW Normal [facility] Comment on above: Result Comment: <100 mg/dl OPTIMAL 100 - 129 mg/dl NEAR OR ABOVE OPTIMAL 130 - 159 mg/dl BORDERLINE HIGH 160 - 189 mg/dl HIGH >190 mg/dl VERY HIGH Performed By: #### T 4, TSH, LIPID, CMP, FT3 #### [facility] [address] [place] [address] Dr. Enrique Parkinson Triglyceride [Mass/Vol] 324 mg/dL Critically high <=150 [facility] Comment on above: Performed By: #### T 4, TSH, LIPID, CMP, FT3 #### [facility] [address] [place] [address] Dr. Enriqeu Parkinson VLDL CALC 64.8 mg/dL Normal [facility] Comment on above: Performed By: #### T 4, TSH, LIPID, CMP, FT3 #### [facility] [address] [place] [address] Dr. Enrique Parkinson PROF 14(COMP METB)on 023 Albumin [Mass/Vol] 4.1 g/dL Normal 3.4-5.0 [facility] Comment on above: Performed By: #### T 4, TSH, LIPID, CMP, FT3 #### [facility] [address] [address] [address] Enrique Parkinson Albumin/Globulin [Mass ratio] 1.1 {ratio} Normal [facility] Comment on above: Performed By: #### T 4, TSH, LIPID, CMP, FT3 #### [facility] [address] [address] [address] Enrique Parkinson ALP [Catalytic activity/Vol] 83 U/L Normal 46-116 [facility] Comment on above: Performed By: #### T 4, TSH, LIPID, CMP, FT3 #### [facility] [address] [place] [address] Dr. Enrique Parkinson ALT [Catalytic activity/Vol] 28 U/L Normal 14-59 [facility] Comment on above: Performed By: #### T 4, TSH, LIPID, CMP, FT3 #### [facility] [address] [address] [address] Enrique Parkinson Anion gap [Moles/Vol] 12.3 mmol/L Normal [facility] Comment on above: Performed By: #### T 4, TSH, LIPID, CMP, FT3 #### [facility] [address] [address] [address] Enrique Parkinson AST [Catalytic activity/Vol] 20 U/L Normal 15-37 [facility] Comment on above: Performed By: #### T 4, TSH, LIPID, CMP, FT3 #### [facility] [address] [address] [address] Enrique Parkinson Bilirubin [Mass/Vol] 0.4 mg/dL Normal 0.2-1.0 [facility] Comment on above: Performed By: #### T 4, TSH, LIPID, CMP, FT3 #### [facility] [address] [address] [address] Enrique Parkinson Calcium [Mass/Vol] 9.2 mg/dL Normal 8.5-10.1 [facility] Comment on above: Performed By: #### T 4, TSH, LIPID, CMP, FT3 #### [facility] [address] [address] [address] Enrique Parkinson Chloride [Moles/Vol] 101 mmol/L Normal 98-107 [facility] Comment on above: Performed By: #### T 4, TSH, LIPID, CMP, FT3 #### [facility] [address] [address] [address] Enrique Parkinson CO2 [Moles/Vol] 29.4 mmol/L Normal 21.0-32.0 [facility] Comment on above: Performed By: #### T 4, TSH, LIPID, CMP, FT3 #### [facility] [address] [place] [address] Dr. Enrique Parkinson Creatinine [Mass/Vol] 0.80 mg/dL Normal 0.55-1.02 [facility] Comment on above: Performed By: #### T 4, TSH, LIPID, CMP, FT3 #### [facility] [address] [place] [address] Dr. Enrique Parkinson EGFR-AF MACANESE >60 Normal >=60 [facility] Comment on above: Performed By: #### T 4, TSH, LIPID, CMP, FT3 #### [facility] [address] [place] [address] Dr. Enrique Parkinson EGFR-NON AF MACANESE >60 Normal >=60 [facility] Comment on above: Performed By: #### T 4, TSH, LIPID, CMP, FT3 #### [facility] [address] [address] [address] Enrique Parkinson Globulin (S) [Mass/Vol] 3.8 g/dL Normal [facility] Comment on above: Performed By: #### T 4, TSH, LIPID, CMP, FT3 #### [facility] [address] [place] [address] Dr. Enrique Parkinson Glucose [Mass/Vol] 111 mg/dL Critically high 74-106 [facility] Comment on above: Performed By: #### T 4, TSH, LIPID, CMP, FT3 #### [facility] [address] [place] [address] Dr. Enrique Parkinson Potassium [Moles/Vol] 3.7 mmol/L Normal 3.5-5.1 [facility] Comment on above: Performed By: #### T 4, TSH, LIPID, CMP, FT3 #### [facility] [address] [place] [address] Dr. Enrique Parkinson Protein [Mass/Vol] 7.9 g/dL Normal 6.4-8.2 [facility] Comment on above: Performed By: #### T 4, TSH, LIPID, CMP, FT3 #### [facility] [address] [place] [address] Dr. Enrique Parkinson Sodium [Moles/Vol] 139 mmol/L Normal 136-145 [facility] Comment on above: Performed By: #### T 4, TSH, LIPID, CMP, FT3 #### [facility] [address] [place] [address] Dr. Enrique Parkinson Urea nitrogen [Mass/Vol] 15.0 mg/dL Normal 7.0-18.0 [facility] Comment on above: Performed By: #### T 4, TSH, LIPID, CMP, FT3 #### [facility] [address] [place] [address] Dr. Enrique Pariknson Urea nitrogen/Creatinine [Mass ratio] 18.8 mg/mg Normal [facility] Comment on above: Performed By: #### T 4, TSH, LIPID, CMP, FT3 #### [facility] [address] [place] [address] Dr. Enrique Parkinson T4on 08-08-2022 T4 [Mass/Vol] 10.30 ug/dL Normal 4.80-13.90 [facility] Comment on above: Performed By: #### T 4, TSH, LIPID, CMP, FT3 #### [facility] [address] [place] [address] Dr. Enrique Parkinson TSHon 08-08-2022 TSH 0.847 uIU/mL Normal 0.358-3.740 [facility] Comment on above: Performed By: #### T 4, TSH, LIPID, CMP, FT3 #### [facility] [address] [address] [address] Enrique Parkinson VITAMIN D 25 OHon 08-08-2022 VIT D 25-OH 35.8 ng/mL Normal [facility] Comment on above: Performed By: #### V ITAD #### [facility] [address] [address] [address] Enrique Parkinson VIT D RANGES SEE BELOW Normal [facility] Comment on above: Result Comment: <20 ng/mL Vit D deficient 20 - <30 ng/mL Vit D insufficient 30 - 100 ng/mL Vit D sufficient >100 ng/mL Potential Toxicity Performed By: #### V ITAD #### [facility] [address] [place] [address] Dr. Enrique Parkinson Covid-19 PCR (CVDTBH)on 12-15 SARS-CoV-2 (COVID-19) RNA RENATO+probe Ql (Unsp spec) Not detected Normal NOT DETECTED [facility] Comment on above: Result Comment: This test is not yet approved or cleared by the [place] FDA. When there are no FDA-approved or cleared tests available, and other criteria are met, FDA can make tests available under an emergency access mechanism called an Emergency Use Authorization (EUA). The EUA for this test is supported by the [place] of Health and Human Service's (HHS's) declaration [...] SARS-CoV-2. Performed By: #### C VDTBH #### [facility] [address] [place] [address] Dr. Enrique Parkinson SYMPTOMATIC COVID-19 ANTIGEN on 01-04-2022 EUA Statement SEE BELOW [facility] Comment on above: Result Comment: This test [...] sooner. Performed By: #### C VDAGS #### [facility] [address] [place] [address] Dr. Enrique Parkinson SARS-CoV-2 (COVID-19) RNA RENATO+probe Ql (Unsp spec) Negative Normal NEGATIVE [facility] Comment on above: Performed By: #### C VDAGS #### [facility] [address] [place] [address] Dr. Enrique Parkinson PAP ACOG PANEL 2: 30 to 65on 11-19-2021 . . Normal [facility] Comment on above: Result Comment: Perf ormed at: WB Performed By: #### C VDAGS #### [facility] [address] [place] [address] Dr. Enrique Parkinson Age Gdln ACOG Testing 30-65 [facility] Comment on above: Performed By: #### C VDAGS #### [facility] [address] [place] [address] Dr. Enrique Parkinson DIAGNOSIS: Comment Normal [facility] Comment on above: Result Comment: NEGA TIVE FOR INTRAEPITHELIAL LESION OR MALIGNANCY. Performed at: WB Performed By: #### C VDAGS #### [facility] [address] [place] [address] Dr. Enrique Parkinson HPV Aptima Negative Normal Negative [facility] Comment on above: Result Comment: This nucleic acid amplification test detects fourteen high-risk HPV types (16,18,31,33,35,39,45,51,52,56,58,59,66,68) without differentiation. Performed at: =G Performed By: #### C VDAGS #### [facility] [address] [address] [address] Enrique Parkinson Methodology: Comment Normal [facility] Comment on above: Result Comment: This liquid based ThinPrep(R) pap test was screened with the use of an image guided system. Performed at: WB Performed By: #### C VDAGS #### [facility] [address] [place] [address] Dr. Enrique Parkinson Note: Comment Normal [facility] Comment on above: Result Comment: The [...] WB Performed By: #### C VDAGS #### [facility] [address] [place] [address] Dr. Enrique Parkinson Performed by: Comment Normal [facility] Comment on above: Result Comment: Hipolito Rosenberg, Information Assurance Officer (ASCP) Performed at: WB Performed By: #### C VDAGS #### [facility] [address] [place] [address] Dr. Enrique Parkinson Specimen adequacy: Comment Normal [facility] Comment on above: Result Comment: Sati sfactory for evaluation. Endocervical and/or squamous metaplastic cells (endocervical component) are present. Performed at: WB Performed By: #### C VDAGS #### [facility] [address] [place], [place] [id number] Dr. Enrique Parkinson Vital Signs Date Time Vital Sign Value Performing Clinician Facility 08-07-2023 10:27-0500 Diastolic blood pressure 94 mm[Hg] Raj Dennison DO Work Phone: [facility] 08-07-2023 10:27-0500 Heart rate 77 /min Aruba Dennison DO Work Phone: [facility] 08-07-2023 10:27-0500 SaO2% (BldA) [Mass fraction] 98 % Aruba Dennison DO Work Phone: [facility] 08-07-2023 10:27-0500 Systolic blood pressure 140 mm[Hg] Aruba Dennison DO Work Phone: [facility] 08-07-2023 08:01-0500 Body height 167.6 cm Aruba Dennison DO Work Phone: [facility] 08-07-2023 08:01-0500 Body mass index (BMI) [Ratio] 29.05 kg/m2 Aruba Dennison DO Work Phone: [facility] 08-07-2023 08:01-0500 Body temperature 98.1 [degF] Aruba Dennison DO Work Phone: [facility] 08-07-2023 08:01-0500 Body weight 81.65 kg Aruba Dennison DO Work Phone: [facility] 08-07-2023 08:01-0500 Respiratory rate 16 /min Aruba Dennison DO Work Phone: [facility] 12-14-2022 14:45-0400 Body height 167.64 cm Mirta Chacko Other [employer] Other 12-14-2022 14:45-0400 Body mass index (BMI) [Ratio] 30.18 kg/m2 Mirta Chacko Other [employer] Other 12-14-2022 14:45-0400 Body temperature 97.8 [degF] Mirta Chacko Other [employer] Other 06-01-2023 14:45-0400 Body weight 84.82 kg Mirta Chacko Other [employer] Other 12-14-2022 14:45-0400 Respiratory rate 18 /min Mirta Chacko Other [employer] Other 12-14-2022 14:45-0400 SaO2% (BldA) [Mass fraction] 98 % Mirta Chacko Other [employer] Other Encounters Encounter Date Encounter Type Care Provider Facility Start: 06-18-2024 End: 06-18-2024 ambulatory Kana Montilla Facility:[facility] Start: 06-09-2024 End: 06-09-2024 ambulatory BREANN TALLEY Not Available Start: 05-22-2024 End: 05-23-2024 Orders Only Not In System Ref Prov [facility] Start: 04-16-2024 End: 04-16-2024 ambulatory DAVE ORTEGA Not Available Start: 08-07-2023 End: 08-07-2023 Emergency department patient visit Raj Webber Miracle DO Work Phone: [facility] Comment on above: Fall, initial encoun ter (Primary Dx); Closed head injury, initial encounter Start: 12-14-2022 End: 12-14-2022 ambulatory Mirta Chacko Other [employer] Other Start: 12-14-2022 Office outpatient ne w 30 minutes Mirta Chacko [facility] Start: 08-09-2022 Encounter for genera l adult medical examination without abnormal findings DR RAKESH LUNDBERG [facility] Start: 08-08-2022 End: 08-09-[address] [...] Date Procedure Procedure Detail Performing Clinician Start: 05-11-2024 MULTIPLE LABS Not In Sy stem Ref Prov Start: 08-07-2023 CT CERVICAL SPINE WO IV CONTRAST RAKESH HOY Start: 08-07-2023 CT THORACIC SPINE WO IV [...] cervical spine w/ o contrast material Dimple C Sales DO Work Phone: Start: 08-07-2023 Ct head/brain w/o co ntrast material Dimple C Sales DO Work Phone: Start: 08-07-2023 Ecg routine ecg w/le ast 12 lds trcg only w/o i&r Dimple C Sales DO Work Phone: Start: 08-07-2023 Comprehensive metabo lic panel Dimple C Sales DO Work Phone: Plan of Treatment Date Care Activity Detail Author Start: 03-16-2024 Influenza vaccination Influenza Vaccine [facility] Start: 03-16-2023 Influenza vaccination Influenza Vaccine (#1) [facility] Start: 05-24-2021 COVID-19 Vaccine (3 - Pfizer series) COVID-19 Vaccine (3 - Pfizer series) [facility] Start: 2017 Administration of varicella zoster vaccine Zoster (Shingles) Vaccine (1 of 2) [facility] Start: 2017 Zoster Vaccines (1 of 2) Zoster Vaccines (1 of 2) [facility] Start: 2007 Screening for malignant neoplasm of breast Mammogram [facility] Start: 1989 DTaP/Tdap/Td Vaccines (1 - Tdap) DTaP/Tdap/Td Vaccines (1 - Tdap) [facility] Start: 01-06-1988 Screening for malignant neoplasm of cervix [facility] Start: 1986 DTaP,Tdap and Td Vaccines (1 - Tdap) DTaP,Tdap and Td Vaccines (1 - Tdap) [facility] Start: 1985 Adult BMI Screening Adult BMI Screening [facility] Start: 1985 Diabetes mellitus screening Diabetes Screening [facility] Start: 1985 Hepatitis C screening Hepatitis C Screening [facility] Start: 1979 Depression Screening Depression Screening [facility] Start: 1979 Tobacco Screening Tobacco Screening [facility] Start: 01-06-1968 MMR Vaccines (1 of 1 - Standard series) MMR Vaccines (1 of 1 - Standard series) [facility] Start: 1967 Hepatitis B Vaccines (1 of 3 - 3-dose series) Hepatitis B Vaccines (1 of 3 - 3-dose series) [facility] Start: 1967 HIV screening HIV Screening [facility] Start: 1967 Lipid panel Lipid Panel [facility] Start: 1967 Screening for malignant neoplasm of colon [facility] Start: 1967 Yearly Adult Physical Yearly Adult Physical [facility] ECG 12 lead ECG 12 lead ECG STAT 08/07/2023 8:33 AM EST [facility] Service Area Work Phone: Payers Date Payer Category Payer Self-pay 2023 Unknown [id number] 2020 [employer] - Other [employer] [place] [id number] 2020 Unknown ANTHEM ANTHEM [facility] [id number] 2020-Present [address] [place] [address] [id number] 1967 Unknown [id number] 1967 Unknown [id number] 1967 Unknown [id number] 1967 Unknown [id number] 1967 Unknown [id number] 1967 Unknown [id number] [id number] 1967 Unknown [id number] [id number] 1967 Unknown [id number] [id number] 1959 Self-pay [id number] 1959 Unknown [id number] Unknown [id number] [id number] Social History Date Type Detail Facility Unknown if ever smoked [employer] Other Sex Assigned At [employer] Other Tobacco smoking status [facility] Tobacco smoking consumption unknown [facility] Start: 1967 Sex Assigned At Not on file U [facility] Work Phone: Start: 07-28-2023 End: 08-07-2023 Exposure to SARS-CoV-2 (event) Not sure [facility] Work Phone: Start: 05-12-2024 Sex Female (finding) [facility] Discharge instructions 08-07-2023 Discharge Instructions Note [...] needed for pain. documented in this encounter [facility] Work Phone: Evaluation note 12-14-2022 Note [...] resolved. Patient verbalized understanding of treatment plan [employer] Other Evaluation note Note Date & Type Note Facility Evaluation note Diagnosis Fall, initial encounter- Primary Closed head injury, initial encounter documented in this encounter [facility] Work Phone: History general Narrative - Reported Note Date & Type Note Facility History general Narrative - Reported Type Medical History high blood pressure Medical History thyroid disease Surgical History C section Surgical History lobectomy Surgical History wrist surgery Surgical History bowel surgery Hospitalization History see above [employer] Other Instructions Note Date & Type Note Facility Instructions Not on filedocumented in this en counter [facility] Summary Purpose Family History No Family History [...] content) DATE CREATED AUTHOR 08/14/2022 [facility] pital DATE CREATED AUTHOR AUTHOR'S ORGANIZ ATION 08/31/2023 [facility] DATE CREATED AUTHOR AUTHOR'S ORGANIZ ATION 04/08/2024 [facility] DATE CREATED AUTHOR AUTHOR'S ORGANIZ ATION 06/12/2024 [facility] EPIC DATE CREATED AUTHOR AUTHOR'S ORGANIZ ATION 06/28/2024 [facility] REASON FOR VISIT (unrecogniz ed section and content) Reason Comments Fall Hit head and upper b ack; +LOC no thinners Scheduled Active and Recently Administ ered Medications (unrecognized section and content) Medication Order 08/05/2023 08/06/2023 08/07/2023 fentaNYL PF (Sublimaze) injection 50 mcg (COMPLETED) 50 mcg, intravenous, Once, On Sun08/07/23 at 0815, For 1 dose 0825 (Given - Provid er: Miay Forte RN) Care Teams (unrecognized sec tion and content) Transportation Planning Engineer Relationship Specialty Start Date End Date Rakesh Lundberg MD [address] [facility] [place] [address] PCP - General 09/06/09 Transportation Planning Engineer Relationship Specialty Start Date End Date Rakesh Lundberg MD [address] [facility] [place] [address] PCP - General Family Medicine 05/12/24 FOR RECORDS PERTAINING TO PATIENTS WHO ARE [...] BE BASED ON THE PRIMARY CLINICAL RECORDS. [facility] [employer] provides no warranty or guarantee of the accuracy or completeness of information in this document.
[2024-08-01 13:08] LABS: Hemoglobin 14.2 g/dL (12.0-16.0)
--- NOTE | 2024-08-01 14:00 | RT_ITS ---
[facility] Test Date: 2024-08-01 Pat Name: PRAVEENA DACOSTA Department: Room: - Gender: Female Dermatology Physician Assistant: Karine Cruz RRT : 1965 Requested By: RAKESH VERNON Order Number: [id number] Reading MD: Misael Casarez Interpretive Statements Pulmonary function testing was completed according to ATS criteria. Findings were considered accurate and reproducible. Both pre- and post-bronchodilator values utilized for spirometry. Spirometry (based on pre-bronchodilator values): -FEV1/FVC: Normal @ 75% -FEV1: Normal @ 120% -FVC: Normal @ 125% -CID83-30%: Normal @ 103% -There is a positive bronchodilator resposne in [id number]%, but diagnostic and clinical significance is unclear. Lung volumes by plethysmography: -RV: Increased @ 129% -TLC: Increased @ 133% Diffusion capacity: -DLCO: Normal @ 103% when corrected for Hb 14.2g/dL Impressions: -Technically normal spirometry, though the FEV1/FVC ratio is trending towards mild obstruction. An elevated RV and TLC may indicate air trapping and hyperinflation respectively. Normal diffusion capacity. Overall study suggests possible obstructive lung disease such as mild asthma. Clinical correlation required. Electronically Signed On 08-05-2024 8:18:32 EST by Misael Casarez
[2024-08-01] MEDS: ALBUTEROL SULFATE 2.5 MG/3 ML VIAL NEB IH (14:48)
== END 2024-08-01 12:45 | disposition home or self-care (01) ==
LOC: CARD 12:44
PROVIDERS: PCP Family Medicine; Visit Provider Family Medicine
DX: R07.89 Other chest pain (principal)
CPT/HCPCS: 36415; 85018; 94060; 94726; 94729

== ENCOUNTER 2024-08-30 20:48 | Observation (INO) | payer BC, SELFPAY ==
[2024-08-30] VITALS (20 sets, daily range): BP systolic 101–113; BP diastolic 55–91; PULSE 83–102; TEMP 37.2; O2SAT 79–98; BMI 26.6
--- OUTSIDE RECORDS SUMMARY | 2024-08-30 20:53 | XMS_ITS | CCD ---
Author Organization [facility]ini[facility] Care Team Providers Care Petal Shaper Hand Name Role Phone DR RAKESH LUNDBERG Primary [...] Rakesh Lundberg MD Primary Care Provider [phone] RAKESH LUNDBERG Primary Care Unavailable RAJ DENNISON Attending Unavailable aRkesh Lundberg MD Primary Care Provider [phone] DAVE ORTEGA Attending Unavailable BREANN TALLEY Attending Unavailable Kana Montilla Attending Unavailable Kana Montilla Admitting Unavailable Rakesh Lundberg Primary Care Unavailable Rakesh Lundberg MD Unavailable DORIS SUAREZ Attending Unavailable RAKESH LUNDBERG Referring Unavailable Allergies Allergy Classification Reported Allergen(s) Allergy Type Date of Onset Reaction(s) Facility (2 sources) Codeine; Translations: [CODEINE] Drug Allergy 01-29-20 14 [facility] Repository (1 source) diphenhydrAMINE Drug Allergy 04-25-20 16 [facility] Repository (1 source) Erythromycin Drug Allergy 01-29-20 14 [facility] Repository (1 source) Penicillins Drug allergy (disorder) 01-29-20 14 [facility] Repository (1 source) Penicillin Drug Allergy [facility] Other (2 sources) Amoxicillin; Translations: [AMOXICILLIN] Drug Allergy 05-21-20 [facility] (3 sources) Codeine Drug Allergy 08-07-19 24 Anxiety, Other: See Comments, [facility] Work Phone: (1 source) Codeine Drug Allergy 06-04-20 [facility] Repository (1 source) Erythromycin Drug Allergy 06-04-20 [facility] Repository (1 source) Penicillins Drug allergy (disorder) 06-04-20 [facility] Repository (2 sources) Penicillins Drug Allergy 05-21-20 Anaphylaxis, [facility] Medications Current Medications Medication Drug Class(es) Dates Sig (Normalized) Sig (Original) [id number] 200 actuat albuterol 0.09 mg/actuat metered dose inhaler (2 sources) beta2-Adrenergi c Agonist Start: 02-13-2024 take 2 puff(s) by inhalation every four hours as needed albuterol HFA (VENTOLIN HFA) 90 mcg/actuation inhaler Inhale 2 Puffs as instructed every 4 hours as needed. 02/13/2024 Active cyclobenzaprine hydrochloride 10 mg oral tablet (1 source) Muscle Relaxant Start: 12-14-2022 take 1 tablet by mouth every eight hours as needed for pain Cyclobenzaprine HCl 10 MG 1 tablet Orally every 8 hours prn back pain for 5 days Dec, Active FLUoxetine 10 mg oral capsule (3 sources) Serotonin Reuptake Inhibitor take 1 capsule by mouth once daily in the morning FLUoxetine (PROZAC) 10 mg capsule Take 10 mg by mouth every morning. Active 60 actuat formoterol fumarate 0.005 mg/actuat / mometasone furoate 0.1 mg/actuat metered dose inhaler (2 sources) Corticosteroid, beta2-Adrenergi c Agonist Start: 08-12-2024 End: 11-10-2024 take 2 puff(s) by inhalation twice daily mometasone-formotero l (DULERA) 100-5 mcg/actuation inhaler Indications: Severe persistent asthma without complication Inhale 2 Puffs as instructed two times a day. 13 g 2 08/12/2024 11/10/2024 Active levothyroxine sodium 0.125 mg oral tablet (3 sources) l-Thyroxine Start: 05-11-2023 take 1 tablet by mouth once daily levothyroxine (SYNTHROID) 125 mcg tablet Take 1 tablet by mouth once daily. 05/11/2023 Active Levothyroxine So dium 125 MCG Oral for 90 Days Active lisinopril 10 mg oral tablet (3 sources) Angiotensin Converting Enzyme Inhibitor Start: 05-11-2023 take 1 tablet by mouth once daily lisinopril (ZESTRIL) 10 mg tablet Take 10 mg by mouth once daily. 05/11/2023 Active Lisinopril 10 MG Oral for 90 Days Active modafinil 200 mg oral tablet (3 sources) Sympathomimetic-like Agent take 1 tablet by mouth once daily modafinil (PROVIGIL) 200 mg tablet Take 200 mg by mouth once daily. Active Completed/Discontinued Medications Medication Drug Class(es) Dates Sig (Normalized) Sig (Original) 1 ml fentaNYL 0.05 mg/ml injection (1 source) Opioid Agonist Start: 08-07-2023 End: 08-07-2023 fentaNYL PF (Sublimaze) injection 50 mcg Ketorolac Tromethamin (1 source) Start: 12-14-2022 Ketorolac Tromethamin Dec, 60 mg Problems Active Problems Problem Classification Problem Date Documented Da te Episodic/Chronic Asthma (1 source) Uncomplicated severe persistent asthma; Translations: [Severe persistent asthma, uncomplicated] 08-12-2024 Chronic Disorders of lipid metabolism (1 source) Hyperlipidemia, [...] of head, initial encounter] 08-07-2023 Episodic Other lower respiratory disease (1 source) Dyspnea; Translations: [Shortness of breath] 08-14-2024 Episodic Sprains and strains (1 source) Strain [...] Test Name Value Interpretation Reference Range Facility [facility] 08-14-2024 [facility] Telephone (PULMLO) LEIDA DACOSTA ([id number]) 1965 F Date Time Provider Department 08/14/24 DORIS SUAREZ PULJAVI During your visit today, we recorded the following information about you: Mattie Link MA 08/14/2024 10:59 AM Signed Doris Suarez MD P Ln Pulm Nurse Could we try to obtain images of CT chest 02/13/2024 from [facility] in [facility]? Thanks Mattie Link MA 08/14/2024 11:49 AM Signed Faxed image request to [facility] Confirmation received Mattie Link MA 08/19/2024 8:52 AM Signed Image has been imported into [employer] and is available to view. Doris Suarez MD 08/19/2024 3:09 PM Signed Reviewed images. Linear scarring is very mild. Faint bibasilar posterior ground glass which likely reflects atalectasis. Otherwise, no overt fibrosis or other parenchymal distortions. No changes to the plan we discussed. Doris Suarez MD Allergies As of Date: 08/14/2024 Noted Allergy Reaction CODEINE 08/07/2023 14 - Other: See Comments 2 - Rash PENICILLINS 05/21/2023 10 - Anaphylaxis 2 - Rash Date Reviewed: 08/12/2024 Reviewed by: Mattie Link MA - Fully Assessed Reason for Visit: Image request [Other] Prescriptions as of 08/19/2024 - albuterol HFA (VENTOLIN HFA) 90 mcg/actuation inhaler Inhale 2 Puffs as instructed every 4 hours as needed. - FLUoxetine (PROZAC) 10 mg capsule Take 10 mg by mouth every morning. - levothyroxine (SYNTHROID) 125 mcg tablet Take 1 tablet by mouth once daily. - lisinopril (ZESTRIL) 10 mg tablet Take 10 mg by mouth once daily. - modafinil (PROVIGIL) 200 mg tablet Take 200 mg by mouth once daily. - mometasone-formoterol (DULERA) 100-5 mcg/actuation inhaler Inhale 2 Puffs as instructed two times a day. Problem List As Of Date: 08/14/2024 (None) Encounter Status:Closed by MATTIE LINK on 08/19/24 Normal [facility] CNOVon 08-12-2024 CNOV Office Visit (PULMLO ) LEIDA DACOSTA ([id number]) 1965 F Date Time Provider Department 08/12/24 1:00 PM DORIS SUAREZ PULMLO During your visit today, we recorded the following information about you: Pulse Blood pressure Weight 83/minute 123/83 77.2 kg Doris Suarez MD 08/14/2024 10:50 AM Signed . [facility] [place] [facility] Initial Visit Note Ms. Dacosta is a 59 year old female who presents to the [facility] [place]. Consultation requested by Rakesh Lundberg MD for an opinion regarding recurrent bronchitis. My final recommendations/evalu ation will be communicated back to the requesting physician by way of shared medical record or letter via US mail. 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 Three separate bronchitis episodes. Symptoms return usually 1-2 weeks after completion of antibiotic course. First COVID illness in May 2020. Fever for 27 days. Required nebs in ED (not admitted) and inhalers at home. Treated at home with CPAP continuously even while awake. SpO2 70s at home, improved with nebs. Took six weeks to recover. After that, eventually recovered back to normal (no dyspnea, no recurrent infections). Second COVID illness this Fall. Severe myalgias, dyspneic, coughing. Treated with paxlovid with symptom improvement but not resolution. BP 80s/50s at home. Given albuterol inhaler - helped. Off of work for two weeks but did not get admitted to hospital. Did not measure SpO2 at home. After second COVID, does not feel back to normal. Persistent heaviness in the chest. No particular dyspnea outside of illness but has been inactive. One week after improved after COVID, developed bronchitis which progressed to pneumonia (cannot recall if CXR). Recurrent antibiotics -> recovery -> relapse cycle x 3 since that time. Symptoms of bronchitis have been coughing, heaviness in chest, dyspnea. No fevers. Sputum thick white or creamy. Treated each episode with levofloxacin. Cannot recall getting steroids - she suspects not. Last episode concluded beginning of June. Current stretch is her longest without bronchitis. Feels she may be getting sick again Evaluated for immunodeficiency by Chargeback Analyst at [facility]. On 06/09/2024. Had PFTs. FENO 12ppb. FEV1 127%, mild scooping of FV loop. Prescribed Trelelgy which she has not taken yet. 2009 - had a wedge resection of her left lung for a mass. FDG avid on PET. Ultimately determined to be pleural based. Mass resected. 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 No malignancy. No history of pulmonary conditions. No frequent infections prior. Never smoker. No seasonal allergies. On CPAP for JANIS, managed by neurologist (Dr Shabazz). Past Medical History: No past medical history on file. As above Past Surgical History: No past surgical history on file. As above Work and Social Histories: Social History Tobacco Use Smoking status: Never Smokeless tobacco: Never Never smoker. 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 Dirty environment, some smells, no major exposures though. No mold or water damage at home. Family History: No family history on file. PHYSICAL EXAM: BP 123/83 Pulse 83 Wt 170 lb 3.1 oz (77.2kg) SpO2 100% GEN: Alert, comfortable, sitting up in chair, no distress EYES: Anicteric sclera, no conjunctival injection HENT: Pharynx clear, tongue normal CV: RRR, no peripheral edema PULM: clear, no wheeze NEURO: appropriately interactive, No asterixis SKIN: Normal turgor, No palmar plethora EXT: No cyanosis or clubbing Objective Allergies: Codeine and Penicillins Outpatient Medications: See separate documentation Labs / Imaging / Diagnostic Studies: All radiography listed below personally reviewed by me Data Reviewed from [facility] (in addition to that noted in HPI, and Past histories above): (Data from patient's OSH mychart shown on phone) CBC: last eos 100 (05/2024) IgE: 45 (wnl) PFT: 08/01/2024 Ratio 75% (normal) FEV1 120%, FVC 125% Reported positive bronchodilator response based on FEF 25-75. RV 129% (high) TLC 133% (high) DLCOc 10 3% (normal) CT Chest: 02/13/2024 (OSH, images unavailable) - [facility] in [facility] Lung: Scattered linear densities and calcifications, chronic scarring is favored. Mild dependent atelectasis. No focal parenchymal infiltrates or significant pulmonary nodules. Pleura: No mass, effusion, pneumothorax Lizeth: Small calcified right hilar lymph nodes. Assessment and Plan: Ms. Dacosta is a 59 year old female who presents to the [facility] [place] for evaluation of bronchitis. #Recurrent bronchitis #Asthma (more content not included)... Normal [facility] HISTORY PHYSICALon HISTORY PHYSICAL HNO ID: [id number] Author: DORIS SUAREZ MD Service: ? Author Type: Physician Type: H&P Filed: 08/14/2024 10:50 Note Text: . [facility] [place] [facility] Initial Visit Note Ms. Dacosta is a 59 year old female who presents to the [facility] [place]. Consultation requested by Rakesh Lundberg MD for an opinion regarding recurrent bronchitis. My final recommendations/evalu ation will be communicated back to the requesting physician by way of shared medical record or letter via US mail. 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 Three separate bronchitis episodes. Symptoms return usually 1-2 weeks after completion of antibiotic course. First COVID illness in May 2020. Fever for 27 days. Required nebs in ED (not admitted) and inhalers at home. Treated at home with CPAP continuously even while awake. SpO2 70s at home, improved with nebs. Took six weeks to recover. After that, eventually recovered back to normal (no dyspnea, no recurrent infections). Second COVID illness this Fall. Severe myalgias, dyspneic, coughing. Treated with paxlovid with symptom improvement but not resolution. BP 80s/50s at home. Given albuterol inhaler - helped. Off of work for two weeks but did not get admitted to hospital. Did not measure SpO2 at home. After second COVID, does not feel back to normal. Persistent heaviness in the chest. No particular dyspnea outside of illness but has been inactive. One week after improved after COVID, developed bronchitis which progressed to pneumonia (cannot recall if CXR). Recurrent antibiotics -> recovery -> relapse cycle x 3 since that time. Symptoms of bronchitis have been coughing, heaviness in chest, dyspnea. No fevers. Sputum thick white or creamy. Treated each episode with levofloxacin. Cannot recall getting steroids - she suspects not. Last episode concluded beginning of June. Current stretch is her longest without bronchitis. Feels she may be getting sick again Evaluated for immunodeficiency by Chargeback Analyst at [facility]. On 06/09/2024. Had PFTs. FENO 12ppb. FEV1 127%, mild scooping of FV loop. Prescribed Trelelgy which she has not taken yet. 2009 - had a wedge resection of her left lung for a mass. FDG avid on PET. Ultimately determined to be pleural based. Mass resected. 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 No malignancy. No history of pulmonary conditions. No frequent infections prior. Never smoker. No seasonal allergies. On CPAP for JANIS, managed by neurologist (Dr Shabazz). Past Medical History: No past medical history on file. As above Past Surgical History: No past surgical history on file. As above Work and Social Histories: Social History Tobacco Use Smoking status: Never Smokeless tobacco: Never Never smoker. 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 Dirty environment, some smells, no major exposures though. No mold or water damage at home. Family History: No family history on file. PHYSICAL EXAM: BP 123/83 Pulse 83 Wt 170 lb 3.1 oz (77.2kg) SpO2 100% GEN: Alert, comfortable, sitting up in chair, no distress EYES: Anicteric sclera, no conjunctival injection HENT: Pharynx clear, tongue normal CV: RRR, no peripheral edema PULM: clear, no wheeze NEURO: appropriately interactive, No asterixis SKIN: Normal turgor, No palmar plethora EXT: No cyanosis or clubbing Objective Allergies: Codeine and Penicillins Outpatient Medications: See separate documentation Labs / Imaging / Diagnostic Studies: All radiography listed below personally reviewed by me Data Reviewed from [facility] (in addition to that noted in HPI, and Past histories above): (Data from patient's OSH mychart shown on phone) CBC: last eos 100 (05/2024) IgE: 45 (wnl) PFT: 08/01/2024 Ratio 75% (normal) FEV1 120%, FVC 125% Reported positive bronchodilator response based on FEF 25-75. RV 129% (high) TLC 133% (high) DLCOc 10 3% (normal) CT Chest: 02/13/2024 (OSH, images unavailable) - [facility] in [facility] Lung: Scattered linear densities and calcifications, chronic scarring is favored. Mild dependent atelectasis. No focal parenchymal infiltrates or significant pulmonary nodules. Pleura: No mass, effusion, pneumothorax Lizeth: Small calcified right hilar lymph nodes. Assessment and Plan: Ms. Dacosta is a 59 year old female who presents to the [facility] [place] for evaluation of bronchitis. #Recurrent bronchitis #Asthma Description of these bronchitis episodes-recurrent, only present after initial COVID infection, never associated with fever or systemic symptoms- is more consistent with exacerbation of airway inflammation/asthma. 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 Normal [facility] Multiple labson 05-11-2024 [facility] CBC W Auto Differential pane l (Bld)on 08-07-2023 Basophils (Bld) [#/Vol] 0.03 10*3/uL [facility] Basophils/100 WBC (Bld) 0.4 % 0.0 - 2.0 % [facility] Eosinophils (Bld) [#/Vol] 0.06 10*3/uL [facility] Eosinophils/100 WBC (Bld) 0.9 % 0.0 - 6.0 % [facility] Erythrocyte distribution width (RBC) [Ratio] 13.2 % 11.5 - 14.5 % [facility] Hematocrit (Bld) [Volume fraction] 41.6 % 36.0 - 46.0 % [facility] Hemoglobin (Bld) [Mass/Vol] 13.8 g/dL 12.0 - 16.0 g/dL [facility] Immature granulocytes (Bld) [#/Vol] 0.07 10*3/uL [facility] Immature granulocytes/100 WBC (Bld) 1.0 % High 0.0 - 0.9 % [facility] Comment on above: Immature Granulocyte Count (IG) includes promyelocytes, myelocytes and metamyelocytes but does not include bands. Percent differential counts (%) should be interpreted in the context of the absolute cell counts (cells/UL). Interpretation and review of laboratory results Abnormal [facility] Lymphocytes (Bld) [#/Vol] 2.17 10*3/uL [facility] Lymphocytes/100 WBC (Bld) 32.1 % 13.0 - 44.0 % [facility] MCH (RBC) [Entitic mass] 29.6 pg 26.0 - 34.0 pg [facility] MCHC (RBC) [Mass/Vol] 33.2 g/dL 32.0 - 36.0 g/dL [facility] MCV (RBC) [Entitic vol] 89 fL 80 - 100 fL [facility] Monocytes (Bld) [#/Vol] 0.32 10*3/uL [facility] Monocytes/100 WBC (Bld) 4.7 % 2.0 - 10.0 % [facility] Neutrophils (Bld) [#/Vol] 4.12 10*3/uL [facility] Comment on above: Percent differential counts (%) should be interpreted in the context of the absolute cell counts (cells/uL). Neutrophils/100 WBC (Bld) 60.9 % 40.0 - 80.0 % [facility] Nucleated RBC/100 WBC (Bld) [Ratio] 0.0 % [facility] Platelets (Bld) [#/Vol] 234 10*3/uL [facility] RBC (Bld) [#/Vol] 4.66 10*6/uL [facility] WBC (Bld) [#/Vol] 6.8 10*3/uL [facility] Basophils (Bld) [#/Vol] 0.03 x10*3/uL Normal 0.00-0.10 [facility] Comment on above: Performed By: #### 5 7021-8 #### MIK FREITAS ([id number]) [facility] ([facility]) [address] [place] [address] Basophils/100 WBC (Bld) 0.4 % Normal 0.0-2.0 [facility] Comment on above: Performed By: #### 5 7021-8 #### MIK FREITAS ([id number]) [facility] ([facility]) [address] [place] [address] Eosinophils (Bld) [#/Vol] 0.06 x10*3/uL Normal 0.00-0.70 [facility] Comment on above: Performed By: #### 5 7021-8 #### MIK FREITAS ([id number]) [facility] ([facility]) [address] [place] [address] Eosinophils/100 WBC (Bld) 0.9 % Normal 0.0-6.0 [facility] Comment on above: Performed By: #### 5 7021-8 #### MIK FREITAS ([id number]) [facility] ([facility]) [address] [place] [address] Erythrocyte distribution width (RBC) [Ratio] 13.2 % Normal 11.5-14.5 [facility] Comment on above: Performed By: #### 5 7021-8 #### MIK FREITAS ([id number]) [facility] ([facility]) [address] [place] [address] Hematocrit (Bld) [Volume fraction] 41.6 % Normal 36.0-46.0 [facility] Comment on above: Performed By: #### 5 7021-8 #### MIK FREITAS ([id number]) [facility] ([facility]) [address] [place] [address] Hemoglobin (Bld) [Mass/Vol] 13.8 g/dL Normal 12.0-16.0 [facility] Comment on above: Performed By: #### 5 7021-8 #### MIK FREITAS ([id number]) [facility] ([facility]) [address] [place] [address] Immature granulocytes (Bld) [#/Vol] 0.07 x10*3/uL Normal 0.00-0.70 [facility] Comment on above: Performed By: #### 5 7021-8 #### MIK FREITAS ([id number]) [facility] ([facility]) [id number] [place] [address] Immature granulocytes/100 WBC (Bld) 1.0 % High 0.0-0.9 [facility] Comment on above: Result Comment: Azul ture Granulocyte Count (IG) includes promyelocytes, myelocytes and metamyelocytes but does not include bands. Percent differential counts (%) should be interpreted in the context of the absolute cell counts (cells/UL). Performed By: #### 5 7021-8 #### MIK FREITAS ([id number]) [facility] ([facility]) [id number] [place] [address] Lymphocytes (Bld) [#/Vol] 2.17 x10*3/uL Normal 1.20-4.80 [facility] Comment on above: Performed By: #### 5 7021-8 #### MIK FREITAS ([id number]) [facility] ([facility]) [id number] [place] [address] Lymphocytes/100 WBC (Bld) 32.1 % Normal 13.0-44.0 [facility] Comment on above: Performed By: #### 5 7021-8 #### MIK FREITAS ([id number]) [facility] ([facility]) [address] [place] [address] MCH (RBC) [Entitic mass] 29.6 pg Normal 26.0-34.0 [facility] Comment on above: Performed By: #### 5 7021-8 #### MIK FREITAS ([id number]) [facility] ([facility]) [address] [place] [address] MCHC (RBC) [Mass/Vol] 33.2 g/dL Normal 32.0-36.0 [facility] Comment on above: Performed By: #### 5 7021-8 #### MIK FREITAS ([id number]) [facility] ([facility]) [address] [place] [address] MCV (RBC) [Entitic vol] 89 fL Normal 80-100 [facility] Comment on above: Performed By: #### 5 7021-8 #### MIK FREITAS ([id number]) [facility] ([facility]) [address] [place] [address] Monocytes (Bld) [#/Vol] 0.32 x10*3/uL Normal 0.10-1.00 [facility] Comment on above: Performed By: #### 5 7021-8 #### MIK FREITAS ([id number]) [facility] ([facility]) [address] [place] [address] Monocytes/100 WBC (Bld) 4.7 % Normal 2.0-10.0 [facility] Comment on above: Performed By: #### 5 7021-8 #### MIK FREITAS ([id number]) [facility] ([facility]) [address] [place] [address] Neutrophils (Bld) [#/Vol] 4.12 x10*3/uL Normal 1.20-7.70 [facility] Comment on above: Result Comment: Perc ent differential counts (%) should be interpreted in the context of the absolute cell counts (cells/uL). Performed By: #### 5 7021-8 #### MIK FREITAS ([id number]) [facility] ([facility]) [address] [place] [address] Neutrophils/100 WBC (Bld) 60.9 % Normal 40.0-80.0 [facility] Comment on above: Performed By: #### 5 7021-8 #### MIK FREITAS ([id number]) [facility] ([facility]) [address] [place] [address] Nucleated RBC/100 WBC (Bld) [Ratio] 0.0 /100 WBCs Normal 0.0-0.0 [facility] Comment on above: Performed By: #### 5 7021-8 #### MIK FREITAS ([id number]) [facility] ([facility] [facility] [address] [place] [address] Platelets (Bld) [#/Vol] 234 x10*3/uL Normal 150-450 [facility] Comment on above: Performed By: #### 5 7021-8 #### MIK FREITAS ([id number]) [facility] ([facility] [address] [place] [address] RBC (Bld) [#/Vol] 4.66 x10*6/uL Normal 4.00-5.20 [facility] Comment on above: Performed By: #### 5 7021-8 #### MIK FREITAS ([id number]) [facility] ([facility] [address] [place] [address] WBC (Bld) [#/Vol] 6.8 x10*3/uL Normal 4.4-11.3 [facility] Comment on above: Performed By: #### 5 7021-8 #### MIK FREITAS ([id number]) [facility] ([facility] [address] [place] [address] CT CERVICAL SPINE WO IV CONT Phoebe 08-07-2023 CT CERVICAL SPINE WO IV CONTRAST Interpreted By: Willy Anderson, STUDY: CT CERVICAL SPINE WO IV CONTRAST; 08/07/2023 9:01 am INDICATION: Signs/Symptoms:Mechan ical fall, no thinners, positive LOC. COMPARISON: None. ACCESSION NUMBER(S): [id number] ORDERING CLINICIAN: DIMPLE MADRID TECHNIQUE: Axial CT [...] Willy Anderson 08/07/2023 9:41 AM Dictation workstation: [id number] [facility] CT Cervical spine WO contras ton 08-07-2023 No evidence for an acute fracture or subluxation of the cervical spine. MACRO: None Signed by: Willy Anderson 08/07/2023 9:41 AM Dictation workstation: [id number] MMODAL Interpreted By: Willy Anderson, STUDY: CT CERVICAL SPINE WO IV CONTRAST; 08/07/2023 9:01 am INDICATION: Signs/Symptoms:Mechan ical fall, no thinners, positive LOC. COMPARISON: None. ACCESSION NUMBER(S): [id number] ORDERING CLINICIAN: DIMPLE MADRID TECHNIQUE: Axial CT [...] thinners, positive LOC. COMPARISON: None. ACCESSION NUMBER(S): [id number] ORDERING CLINICIAN: DIMPLE MADRID TECHNIQUE: Axial CT [...] Willy Anderson 08/07/2023 9:41 AM Dictation workstation: [id number] [facility] Work Phone: [facility] Work Phone: CT HEAD WO IV CONTRASTon CT HEAD WO IV CONTRAST Interpreted By: Willy Anderson, STUDY: CT HEAD WO IV CONTRAST; 08/07/2023 9:01 am INDICATION: Signs/Symptoms:Mechan ical fall, no thinners, positive LOC. COMPARISON: None. ACCESSION NUMBER(S): [id number] ORDERING CLINICIAN: DIMPLE MADRID TECHNIQUE: Noncontrast axial [...] Willy Anderson 08/07/2023 9:38 AM Dictation workstation: [id number] [facility] CT Head WO contraston 2023 No acute intracrania l hemorrhage, mass effect, or calvarial fracture. MACRO: None Signed by: Willy Anderson 08/07/2023 9:38 AM Dictation workstation: [id number] MMODAL Interpreted By: Willy Anderson, STUDY: CT HEAD WO IV CONTRAST; 08/07/2023 9:01 am INDICATION: Signs/Symptoms:Mechan ical fall, no thinners, positive LOC. COMPARISON: None. ACCESSION NUMBER(S): [id number] ORDERING CLINICIAN: DIMPLE MADRID TECHNIQUE: Noncontrast axial [...] thinners, positive LOC. COMPARISON: None. ACCESSION NUMBER(S): [id number] ORDERING CLINICIAN: DIMPLE MADRID TECHNIQUE: Noncontrast axial [...] Willy Anderson 08/07/2023 9:38 AM Dictation workstation: [id number] [facility] Work Phone: CT Head WO contrastOrdered B y: Willy Anderson on 08-07-2023 [facility] Work Phone: CT THORACIC SPINE WO IV CONT RASTon 08-07-2023 CT THORACIC SPINE WO IV CONTRAST Interpreted By: Willy Anderson, STUDY: CT THORACIC SPINE WO IV CONTRAST; 08/07/2023 9:01 am INDICATION: Signs/Symptoms:Mechan ical fall, no thinners, positive LOC, thoracic spinal tenderness. COMPARISON: None. ACCESSION NUMBER(S): [id number] ORDERING CLINICIAN: DIMPLE MADRID TECHNIQUE: Axial CT [...] Willy Anderson 08/07/2023 9:48 AM Dictation workstation: [id number] [facility] CT Thoracic spine WO contras ton 08-07-2023 No acute osseous abnormality of the thoracic spine. Mild chronic appearing anterior wedging of a few scattered thoracic vertebral bodies as above. MACRO: None Signed by: Willy Anderson 08/07/2023 9:48 AM Dictation workstation: [id number] MMODAL Interpreted By: Willy Anderson, STUDY: CT THORACIC SPINE WO IV CONTRAST; 08/07/2023 9:01 am INDICATION: Signs/Symptoms:Mechan ical fall, no thinners, positive LOC, thoracic spinal tenderness. COMPARISON: None. ACCESSION NUMBER(S): [id number] ORDERING CLINICIAN: DIMPLE MADRID TECHNIQUE: Axial CT [...] thoracic spinal tenderness. COMPARISON: None. ACCESSION NUMBER(S): [id number] ORDERING CLINICIAN: DIMPLE MADRID TECHNIQUE: Axial CT [...] Willy Anderson 08/07/2023 9:48 AM Dictation workstation: [id number] [facility] Work Phone: [facility] Work Phone: Coagulation tissue factor in ducedon 08-07-2023 PT Coag (PPP) [Time] 11.1 s Normal 9.8-12.8 [facility] Comment on above: Performed By: #### 5 902-2 #### MIK FREITAS ([id number]) [facility] ([facility] [address] [place] [address] Comprehensive metabolic 2000 panelon 08-07-2023 Albumin BCP dye [Mass/Vol] 4.7 g/dL 3.4 - 5.0 g/dL [facility] ALP [Catalytic activity/Vol] 61 U/L 33 - 110 U/L [facility] ALT With P-5'-P [Catalytic activity/Vol] 27 U/L 7 - 45 U/L [facility] Comment on above: Patients treated wit h Sulfasalazine may generate falsely decreased results for ALT. Anion gap [Moles/Vol] 11 mmol/L 10 - 20 mmol/L [facility] AST With P-5'-P [Catalytic activity/Vol] 23 U/L 9 - 39 U/L [facility] Bilirubin [Mass/Vol] 0.5 mg/dL 0.0 - 1 .2 mg/dL [facility] Calcium [Mass/Vol] 9.4 mg/dL 8.6 - 10. 3 mg/dL [facility] Chloride [Moles/Vol] 101 mmol/L 98 - 10 7 mmol/L [facility] CO2 [Moles/Vol] 28 mmol/L 21 - 32 mmol/L [facility] Creatinine [Mass/Vol] 0.75 mg/dL 0.50 - 1.05 mg/dL [facility] eGFR - PINF [facility] Comment on above: Calculations of danielle mated GFR are performed using the 2020 CKD-EPI Study Refit equation without the race variable for the IDMS-Traceable creatinine methods. https://jasn.asnjournals.org/content//ASN.3785167 988 Glucose [Mass/Vol] 108 mg/dL High 74 - 99 mg/dL Uni [facility] Interpretation and review of laboratory results Abnormal [facility] Potassium [Moles/Vol] 3.8 mmol/L 3.5 - 5.3 mmol/L [facility] Protein [Mass/Vol] 7.8 g/dL 6.4 - 8.2 g/dL Un [facility] Sodium [Moles/Vol] 136 mmol/L 136 - 145 mmol/L [facility] Urea nitrogen [Mass/Vol] 13 mg/dL 6 - 23 mg/dL [facility] Albumin BCP dye [Mass/Vol] 4.7 g/dL Normal 3.4-5.0 [facility] Comment on above: Performed By: #### 2 4323-8 #### MIK FREITAS ([id number]) [facility] ([facility] [address] [place] [address] ALP [Catalytic activity/Vol] 61 U/L Normal 33-110 [facility] Comment on above: Performed By: #### 2 4323-8 #### MIK FREITAS ([id number]) [facility] ([facility] [address] [place] [address] ALT With P-5'-P [Catalytic activity/Vol] 27 U/L Normal 7-45 [facility] Comment on above: Result Comment: [place] ents treated with Sulfasalazine may generate falsely decreased results for ALT. Performed By: #### 2 4323-8 #### MIK FREITAS ([id number]) [facility] ([facility] [address] [place] [place] [address] Anion gap [Moles/Vol] 11 mmol/L Normal 10-20 [facility] Comment on above: Performed By: #### 2 4323-8 #### MIK FREITAS ([id number]) [facility] ([facility] [address] [facility] [place] [address] AST With P-5'-P [Catalytic activity/Vol] 23 U/L Normal 9-39 [facility] Comment on above: Performed By: #### 2 4323-8 #### MIK FREITAS ([id number]) [facility] ([facility] [address] [place] [address] Bilirubin [Mass/Vol] 0.5 mg/dL Normal 0.0-1.2 [facility] Comment on above: Performed By: #### 2 4323-8 #### MIK FREITAS ([id number]) [facility] ([facility]) [address] [place] [address] Calcium [Mass/Vol] 9.4 mg/dL Normal 8.6-10.3 [facility] Comment on above: Performed By: #### 2 4323-8 #### MIK FREITAS ([id number]) [facility] ([facility]) [address] [place] [address] Chloride [Moles/Vol] 101 mmol/L Normal 98-107 [facility] Comment on above: Performed By: #### 2 4323-8 #### MIK FREITAS ([id number]) [facility] ([facility] [address] [place] [address] CO2 [Moles/Vol] 28 mmol/L Normal 21-32 [facility] Comment on above: Performed By: #### 2 4323-8 #### MIK FREITAS ([id number]) [facility] ([facility]) [address] [facility] [place] [address] Creatinine [Mass/Vol] 0.75 mg/dL Normal 0.50-1.05 [facility] Comment on above: Performed By: #### 2 4323-8 #### MIK FREITAS ([id number]) [facility] ([facility] [address] [place] [address] GFR/1.73 sq M.predicted MDRD (S/P/Bld) [Vol rate/Area] mL/min/{1.73_m2} Normal >60 [facility] Comment on above: Result Comment: Calc ulations of estimated GFR are performed using the 2020 CKD-EPI Study Refit equation without the race variable for the IDMS-Traceable creatinine methods. https://jasn.asnjournals.org/content//ASN.2231165 988 Performed By: #### 2 4323-8 #### MIK FREITAS ([id number]) [facility] ([facility]) [address] [place] [address] Glucose [Mass/Vol] 108 mg/dL High 74-99 [facility] Comment on above: Performed By: #### 2 4323-8 #### MIK FREITAS ([id number]) [facility] ([facility] [address] [place] [address] Potassium [Moles/Vol] 3.8 mmol/L Normal 3.5-5.3 [facility] Comment on above: Performed By: #### 2 4323-8 #### MIK FREITAS ([id number]) [facility] ([facility]) [address] [place] [address] Protein [Mass/Vol] 7.8 g/dL Normal 6.4-8.2 [facility] Comment on above: Performed By: #### 2 4323-8 #### MIK FREITAS ([id number]) [facility] ([facility]) [address] [place] [address] Sodium [Moles/Vol] 136 mmol/L Normal 136-145 [facility] Comment on above: Performed By: #### 2 4323-8 #### MIK FREITAS ([id number]) [facility] ([facility]) [address] [place] [address] Urea nitrogen [Mass/Vol] 13 mg/dL Normal 01-05 [facility] Comment on above: Performed By: #### 2 4323-8 #### MIK FREITAS ([id number]) [facility] ([facility] [address] [place] [address] ECG 12-LEADon 08-07-2023 ECG 12-LEAD Ventricular Rate 73 Atrial Rate 73 P-R Interval 168 QRS Duration 70 Q-T Interval 392 QTC Calculation(Bazett) 431 P Farwell 32 R Farwell 43 T Farwell 24 QRS Count 12 Q Onset 225 P Onset 141 P Offset 194 T Offset 421 QTC Fredericia 418 Diagnosis Normal sinus rhythm Septal infarct , age undetermined Abnormal ECG No previous ECGs available Confirmed by Josie Anthony ([id number]) on 08/29/2023 9:59:19 PM Normal [facility] No Panel Informationon 08-07 Radiology Study observation (narrative) [facility] Work Phone: PT Coag (PPP) [Time]on 08-07 INR Coag (PPP) [Relative time] 1.0 {INR} 0.9 - 1.1 [facility] Interpretation and review of laboratory results Normal [facility] INR Coag (PPP) [Relative time] 1.0 Normal 0.9-1.1 [facility] Comment on above: Performed By: #### 5 902-2 #### MIK FREITAS ([id number]) [facility] ([facility]) [address] [place] [address] Protime-INRon 08-07-2023 PT Coag (PPP) [Time] 11.1 s [facility] CBC AUTO DIFFon 08-08-2022 BASO # 0.0 103/ul Normal 0.0-0.1 [facility] Comment on above: Performed By: #### C BC #### [facility] [address] [place] [address] Dr. Enrique Parkinson Basophils/100 WBC (Bld) 0.6 % Normal 0.2-2.0 [facility] Comment on above: Performed By: #### C BC #### [facility] [address] [place] [address] Dr. Enrique Parkinson EO # 0.1 103/ul Normal 0.0-0.7 [facility] Comment on above: Performed By: #### C BC #### [facility] [address] [place] [address] Dr. Enrique Parkinson Eosinophils/100 WBC (Bld) 0.9 % Normal 0.9-7.0 [facility] Comment on above: Performed By: #### C BC #### [facility] [address] [place] [address] Dr. Enrique Parkinson Erythrocyte distribution width (RBC) [Ratio] 12.9 % Normal 11.0-15.0 [facility] Comment on above: Performed By: #### C BC #### [facility] [address] [place] [address] Dr. Enrique Parkinson Hematocrit (Bld) [Volume fraction] 41.5 % Normal 36.0-48.0 [facility] Comment on above: Performed By: #### C BC #### [facility] [address] [place] [address] Dr. Enrique Parkinson Hemoglobin (Bld) [Mass/Vol] 14.3 g/dL Normal 12.0-16.0 [facility] Comment on above: Performed By: #### C BC #### [facility] [address] [place] [address] Dr. Enrique Parkinson IG # 0.02 10e3/ul Normal 0.00-0.03 [facility] Comment on above: Performed By: #### C BC #### [facility] [address] [place] [address] Dr. Enrique Parkinson IG % 0.3 % Normal 0.0-0.5 [facility] Comment on above: Performed By: #### C BC #### [facility] [address] [place] [address] Dr. Enrique Parkinson LYMPH # 1.8 103/ul Normal 1.2-3.8 [facility] Comment on above: Performed By: #### C BC #### [facility] [address] [place] [address] Dr. Enrique Parkinson Lymphocytes/100 WBC (Bld) 25.9 % Normal 20.5-60.0 [facility] Comment on above: Performed By: #### C BC #### [facility] [address] [place] [address] Dr. Enrique Parkinson MANUAL DIFF REQ NO Normal [facility] Comment on above: Performed By: #### C BC #### [facility] [address] [place] [address] Dr. Enrique Parkinson MCH (RBC) [Entitic mass] 30.2 pg Normal 26.7-34.0 [facility] Comment on above: Performed By: #### C BC #### [facility] [address] [place] [address] Dr. Enrique Parkinson MCHC (RBC) [Mass/Vol] 34.5 g/dL Normal 29.9-35.2 [facility] Comment on above: Performed By: #### C BC #### [facility] [address] [place] [address] Dr. Enrique Parkinson MCV (RBC) [Entitic vol] 87.6 fL Normal 81.0-99.0 [facility] Comment on above: Performed By: #### C BC #### [facility] [address] [place] [address] Dr. Enrique Parkinson MONO # 0.4 103/ul Normal 0.3-0.8 [facility] Comment on above: Performed By: #### C BC #### [facility] [address] [place] [address] Dr. Enrique Parkinson Monocytes/100 WBC (Bld) 5.1 % Normal 1.7-12.0 [facility] Comment on above: Performed By: #### C BC #### [facility] [address] [place] [address] Dr. Enrique Parkinson NEUT # 4.6 103/ul Normal 1.4-6.5 [facility] Comment on above: Performed By: #### C BC #### [facility] [address] [place] [address] Dr. Enrique Parkinson Neutrophils/100 WBC (Bld) 67.2 % Normal 43.0-75.0 [facility] Comment on above: Performed By: #### C BC #### [facility] [address] [place] [address] Dr. Enrique Parkinson Platelet mean volume (Bld) [Entitic vol] 9.2 fL Critically low 9.5-13.5 [facility] Comment on above: Performed By: #### C BC #### [facility] [address] [place] [address] Dr. Enrique Parkinson PLT 246 103/ul Normal 150-450 [facility] Comment on above: Performed By: #### C BC #### [facility] [address] [place] [address] Dr. Enrique Parkinson RBC 4.74 106/ul Normal 4.20-5.40 [facility] Comment on above: Performed By: #### C BC #### [facility] [address] [place] [address] Dr. Enrique Parkinson WBC 6.9 103/ul Normal 4.0-11.0 [facility] Comment on above: Performed By: #### C BC #### [facility] [address] [place] [address] Dr. Enrique Parkinson FREE T3on 08-08-2022 FREE T3 2.43 pg/mlL Normal 2.18-3.98 [facility] Comment on above: Performed By: #### T 4, TSH, LIPID, CMP, FT3 #### [facility] [address] [place] [address] Dr. Enrique Parkinson GLYCOHEMOGLOBIN A1Con 2022 ADA RECOMMENDATION SEE BELOW Normal [facility] Comment on above: Result Comment: ADA RECOMMENDED LIMIT 4.0 - 6.0 ADA THERAPEUTIC TARGET < 7.0 ACTION SUGGESTED > 7.0 Performed By: #### A 1C #### [facility] [address] [address] [address] Enrique Parkinson Glucose [Mass/Vol] 114 mg/dL Normal [facility] Comment on above: Performed By: #### A 1C #### [facility] [address] [address] [address] Enrique Parkinson HbA1c (Bld) [Mass fraction] 5.6 % Normal 4.5-6.2 [facility] Comment on above: Performed By: #### A 1C #### [facility] [address] [place] [address] Dr. Enrique Parkinson LIPID PROFILEon 08-08-2022 CHOL-HDL RATIO NORM SEE BELOW Normal [facility] Comment on above: Result Comment: 3.3 - 4.4 LOW RISK 4.4 - 7.1 AVERAGE RISK 7.1 - 11.0 MODERATE RISK >11.0 HIGH RISK Performed By: #### T 4, TSH, LIPID, CMP, FT3 #### [facility] [address] [address] [address] Enrique Parkinson Cholesterol [Mass/Vol] 241 mg/dL Critically high <=200 [facility] Comment on above: Performed By: #### T 4, TSH, LIPID, CMP, FT3 #### [facility] [address] [address] [address] Enrique Parkinson Cholesterol in HDL [Mass/Vol] 45 mg/dL Normal 40-60 [facility] Comment on above: Performed By: #### T 4, TSH, LIPID, CMP, FT3 #### [facility] [address] [address] [address] Enrique Parkinson Cholesterol in LDL [Mass/Vol] 131.2 mg/dL Normal [facility] Comment on above: Performed By: #### T 4, TSH, LIPID, CMP, FT3 #### [facility] [address] [address] [address] Enrique Parkinson Cholesterol.total/Ch olesterol in HDL [Mass ratio] 5.4 {ratio} Normal [facility] Comment on above: Performed By: #### T 4, TSH, LIPID, CMP, FT3 #### [facility] [address] [address] [address] Enrique Parkinson HDL NORMAL > or = 60 mg/dl - LO W CARDIOVASCULAR RISK <40 mg/dl - HIGH CARDIOVASCULAR RISK Normal [facility] Comment on above: Performed By: #### T 4, TSH, LIPID, CMP, FT3 #### [facility] [address] [address] [address] Enrique Parkinson LDL CALC NORMAL SEE BELOW Normal [facility] Comment on above: Result Comment: <100 mg/dl OPTIMAL 100 - 129 mg/dl NEAR OR ABOVE OPTIMAL 130 - 159 mg/dl BORDERLINE HIGH 160 - 189 mg/dl HIGH >190 mg/dl VERY HIGH Performed By: #### T 4, TSH, LIPID, CMP, FT3 #### [facility] [address] [address] [address] Enrique Parkinson Triglyceride [Mass/Vol] 324 mg/dL Critically high <=150 [facility] Comment on above: Performed By: #### T 4, TSH, LIPID, CMP, FT3 #### [facility] [address] [place] [address] Dr. Enrique Parkinson VLDL CALC 64.8 mg/dL Normal [facility] Comment on above: Performed By: #### T 4, TSH, LIPID, CMP, FT3 #### [facility] [address] [address] [address] Enrique Parkinson PROF 14(COMP METB)on 023 Albumin [Mass/Vol] 4.1 g/dL Normal 3.4-5.0 [facility] Comment on above: Performed By: #### T 4, TSH, LIPID, CMP, FT3 #### [facility] [address] [address] [address] Enrique Parkinson Albumin/Globulin [Mass ratio] 1.1 {ratio} Normal [facility] Comment on above: Performed By: #### T 4, TSH, LIPID, CMP, FT3 #### [facility] [address] [address] [address] Enrique Parkinson ALP [Catalytic activity/Vol] 83 U/L Normal 46-116 [facility] Comment on above: Performed By: #### T 4, TSH, LIPID, CMP, FT3 #### [facility] [address] [address] [address] Enrique Parkinson ALT [Catalytic activity/Vol] 28 U/L Normal 14-59 [facility] Comment on above: Performed By: #### T 4, TSH, LIPID, CMP, FT3 #### [facility] [address] [place] [address] Dr. Enrique Parkinson Anion gap [Moles/Vol] 12.3 mmol/L Normal [facility] Comment on above: Performed By: #### T 4, TSH, LIPID, CMP, FT3 #### [facility] [address] [place] [address] Dr. Enrique Parkinson AST [Catalytic activity/Vol] 20 U/L Normal 15-37 [facility] Comment on above: Performed By: #### T 4, TSH, LIPID, CMP, FT3 #### [facility] [address] [place] [address] Dr. Enrique Parkinson Bilirubin [Mass/Vol] 0.4 mg/dL Normal 0.2-1.0 [facility] Comment on above: Performed By: #### T 4, TSH, LIPID, CMP, FT3 #### [facility] [address] [place] [address] Dr. Enrique Parkinson Calcium [Mass/Vol] 9.2 mg/dL Normal 8.5-10.1 [facility] Comment on above: Performed By: #### T 4, TSH, LIPID, CMP, FT3 #### [facility] [address] [place] [address] Dr. Enrique Parkinson Chloride [Moles/Vol] 101 mmol/L Normal 98-107 [facility] Comment on above: Performed By: #### T 4, TSH, LIPID, CMP, FT3 #### [facility] [address] [place] [address] Dr. Enrique Parkinson CO2 [Moles/Vol] 29.4 mmol/L Normal 21.0-32.0 [facility] Comment on above: Performed By: #### T 4, TSH, LIPID, CMP, FT3 #### [facility] [address] [address] [address] Enrique Parkinson Creatinine [Mass/Vol] 0.80 mg/dL Normal 0.55-1.02 [facility] Comment on above: Performed By: #### T 4, TSH, LIPID, CMP, FT3 #### [facility] [address] [place] [address] Dr. Enrique Parkinson EGFR-AF MOZAMBICAN >60 Normal >=60 [facility] Comment on above: Performed By: #### T 4, TSH, LIPID, CMP, FT3 #### [facility] [address] [place] [address] Dr. Enrique Parkinson EGFR-NON AF MOZAMBICAN >60 Normal >=60 [facility] Comment on above: Performed By: #### T 4, TSH, LIPID, CMP, FT3 #### [facility] [address] [place] [address] Dr. Enrique Parkinson Globulin (S) [Mass/Vol] 3.8 g/dL Normal [facility] Comment on above: Performed By: #### T 4, TSH, LIPID, CMP, FT3 #### [facility] [address] [place] [address] Dr. Enrique Parkinson Glucose [Mass/Vol] 111 mg/dL Critically high 74-106 [facility] Comment on above: Performed By: #### T 4, TSH, LIPID, CMP, FT3 #### [facility] [address] [place] [address] Dr. Enrique Parkinson Potassium [Moles/Vol] 3.7 mmol/L Normal 3.5-5.1 [facility] Comment on above: Performed By: #### T 4, TSH, LIPID, CMP, FT3 #### [facility] [address] [place] [address] Dr. Enrique Parkinson Protein [Mass/Vol] 7.9 g/dL Normal 6.4-8.2 [facility] Comment on above: Performed By: #### T 4, TSH, LIPID, CMP, FT3 #### [facility] [address] [place] [address] Dr. Enrique Parkinson Sodium [Moles/Vol] 139 mmol/L Normal 136-145 [facility] Comment on above: Performed By: #### T 4, TSH, LIPID, CMP, FT3 #### [facility] [address] [place] [address] Dr. Enrique Parkinson Urea nitrogen [Mass/Vol] 15.0 mg/dL Normal 7.0-18.0 [facility] Comment on above: Performed By: #### T 4, TSH, LIPID, CMP, FT3 #### [facility] [address] [place] [address] Dr. Enrique Parkinson Urea nitrogen/Creatinine [Mass ratio] 18.8 mg/mg Normal [facility] Comment on above: Performed By: #### T 4, TSH, LIPID, CMP, FT3 #### [facility] [address] [place] [address] Dr. Enrique Parkinson T4on 08-08-2022 T4 [Mass/Vol] 10.30 ug/dL Normal 4.80-13.90 [facility] Comment on above: Performed By: #### T 4, TSH, LIPID, CMP, FT3 #### [facility] [address] [place] [address] Dr. Enrique Parkinson TSHon 08-08-2022 TSH 0.847 uIU/mL Normal 0.358-3.740 [facility] Comment on above: Performed By: #### T 4, TSH, LIPID, CMP, FT3 #### [facility] [address] [place] [address] Dr. Enrique Parkinson VITAMIN D 25 OHon 08-08-2022 VIT D 25-OH 35.8 ng/mL Normal [facility] Comment on above: Performed By: #### V ITAD #### [facility] [address] [place] [address] Dr. Enrique Parkinson VIT D RANGES SEE BELOW Normal [facility] Comment on above: Result Comment: <20 ng/mL Vit D deficient 20 - <30 ng/mL Vit D insufficient 30 - 100 ng/mL Vit D sufficient >100 ng/mL Potential Toxicity Performed By: #### V ITAD #### [facility] [address] [place] [address] Dr. Enrique Parkinson [facility]15 SARS-CoV-2 (COVID-19) RNA RENATO+probe Ql (Unsp spec) Not detected Normal NOT DETECTED [facility] Comment on above: Result Comment: This test is not yet approved or cleared by the [place] FDA. When there are no FDA-approved or cleared tests available, and other criteria are met, FDA can make tests available under an emergency access mechanism called an Emergency Use Authorization (EUA). The EUA for this test is supported by the [place] of Health and Human Service's (HHS's) declaration [...] SARS-CoV-2. Performed By: #### C VDTBH #### [facility] [address] [place] [address] Dr. Enrique Parkinson SYMPTOMATIC COVID-19 ANTIGEN on 01-04-2022 EUA Statement SEE BELOW Normal [facility] Comment on above: Result Comment: [...] sooner. Performed By: #### C VDAGS #### [facility] [address] [place] [address] Dr. Enrique Parkinson SARS-CoV-2 (COVID-19) RNA RENATO+probe Ql (Unsp spec) Negative Normal NEGATIVE [facility] Comment on above: Performed By: #### C VDAGS #### [facility] [address] [place], [place] [id number] Dr. Enrique Parkinson PAP ACOG PANEL 2: 30 to 65on 11-19-2021 . . Normal [facility] Comment on above: Result Comment: Perf ormed at: WB Performed By: #### C VDAGS #### [facility] [address] [place] [address] Dr. Enrique Parkinson Age Gdln ACOG Testing 30-65 Normal [facility] Comment on above: Performed By: #### C VDAGS #### [facility] [address] [place] [address] Dr. Enrique Parkinson DIAGNOSIS: Comment Normal [facility] Comment on above: Result Comment: NEGA TIVE FOR INTRAEPITHELIAL LESION OR MALIGNANCY. Performed at: WB Performed By: #### C VDAGS #### [facility] [address] [place] [address] Dr. Enrique Parkinson HPV Aptima Negative Normal Negative [facility] Comment on above: Result Comment: This nucleic acid amplification test detects fourteen high-risk HPV types (16,18,31,33,35,39,45,51,52,56,58,59,66,68) without differentiation. Performed at: =G Performed By: #### C VDAGS #### [facility] [address] [place] [address] Dr. Enrique Parkinson Methodology: Comment Normal [facility] Comment on above: Result Comment: This liquid based ThinPrep(R) pap test was screened with the use of an image guided system. Performed at: WB Performed By: #### C VDAGS #### [facility] [address] [place] [address] Dr. Enrique Parkinson Note: Comment [facility] Comment on above: Result Comment: The Pap smear is a screening test designed to aid in the detection of premalignant and malignant conditions of the uterine cervix. It is not a diagnostic procedure and should not be used as the sole means of detecting cervical cancer. Both false-positive and false-negative reports do occur. . Performed at: WB Performed By: #### C VDAGS #### [facility] [address] [address] [address] Enrique Parkinson Performed by: Comment Normal [facility] Comment on above: Result Comment: Hipolito Rosenberg, Athletic Gear Custodian (ASCP) Performed at: WB Performed By: #### C VDAGS #### [facility] [address] [address] [address] Enrique Parkinson Specimen adequacy: Comment Normal [facility] Comment on above: Result Comment: Sati sfactory for evaluation. Endocervical and/or squamous metaplastic cells (endocervical component) are present. Performed at: WB Performed By: #### C VDAGS #### [facility] [id number] Enrique Parkinson Vital Signs Date Time Vital Sign Value Performing Clinician Facility 08-12-2024 13:18-0500 Body weight 77.2 kg Doris Suarez MD Work Phone: [facility] 08-12-2024 13:18-0500 Diastolic blood pressure 83 mm[Hg] Doris Suarez MD Work Phone: [facility] 08-12-2024 13:18-0500 Heart rate 83 /min Doris Suarez MD Work Phone: [facility] 08-12-2024 13:18-0500 SaO2% (BldA) [Mass fraction] 100 % Doris Suarez MD Work Phone: [facility] 08-12-2024 13:18-0500 Systolic blood pressure 123 mm[Hg] Doris Suarez MD Work Phone: [facility] 08-07-2023 10:27-0500 Diastolic blood pressure 94 mm[Hg] Aruba Dennison DO Work Phone: [facility] 08-07-2023 10:27-0500 Heart rate 77 /min Aruba Dennison DO Work Phone: [facility] 08-07-2023 10:27-0500 SaO2% (BldA) [Mass fraction] 98 % Aruba Dennison DO Work Phone: [facility] 08-07-2023 10:27-0500 Systolic blood pressure 140 mm[Hg] Aruba Dennison DO Work Phone: [facility] 08-07-2023 08:01-0500 Body height 167.6 cm Aruba Dennison DO Work Phone: [facility] 08-07-2023 08:01-0500 Body mass index (BMI) [Ratio] 29.05 kg/m2 Aruba Dennison DO Work Phone: [facility] 08-07-2023 08:01-0500 Body temperature 98.1 [degF] Aruba Dennison DO Work Phone: [facility] 08-07-2023 08:01-0500 Body weight 81.65 kg Aruba Dennison DO Work Phone: [facility] 08-07-2023 08:01-0500 Respiratory rate 16 /min Aruba Dennison DO Work Phone: [facility] 12-14-2022 14:45-0400 Body height 167.64 cm Mirta Chacko Other [employer] Other 12-14-2022 14:45-0400 Body mass index (BMI) [Ratio] 30.18 kg/m2 Mirta Chacko Other [employer] Other 12-14-2022 14:45-0400 Body temperature 97.8 [degF] Mirta Chacko Other [employer] Other 12-14-2022 14:45-0400 Body weight 84.82 kg Mirta Chacko Other [employer] Other 12-14-2022 14:45-0400 Respiratory rate 18 /min Mirta Chacko Other [employer] Other 12-14-2022 14:45-0400 SaO2% (BldA) [Mass fraction] 98 % Mirta Chacok Other [employer] Other Encounters Encounter Date Encounter Type Care Provider Facility Start: 08-14-2024 End: 08-19-2024 Telephone encounter Doris Suarez MD Work Phone: Pulmonary Medicine Comment on above: Image request Start: 08-12-2024 End: 08-12-2024 ambulatory DORIS SUAREZ Facility:[facility] Start: 08-12-2024 End: 08-12-2024 Patient encounter procedure Doris Suarez MD Work Phone: Pulmonary Medicine Comment on above: Severe persistent as thma without complication (Primary Dx); Shortness of breath Start: 06-18-2024 End: 06-18-2024 ambulatory Kana Montilla Facility:[facility] Start: 06-09-2024 End: 06-09-2024 ambulatory BREANN TALLEY Not Available Start: 05-22-2024 End: 05-23-2024 Orders Only Not In System Ref Prov [facility] Start: 04-16-2024 End: 04-16-2024 ambulatory DAVE ORTEGA Not Available Start: 08-07-2023 End: 08-07-2023 Emergency department patient visit Raj Dennison DO Work Phone: [facility] Comment on above: Fall, initial encoun ter (Primary Dx); Closed head injury, initial encounter Start: 12-14-2022 End: 12-14-2022 ambulatory Mirat Chacko Other [address] Other Start: 12-14-2022 Office outpatient ne w 30 minutes Mirta Chacko [facility] Start: 08-09-2022 Encounter for genera l adult medical examination without abnormal findings DR RAKESH LUNDBERG [facility] Start: 08-08-2022 End: 08-09-[address] RAKESH [...] Treatment Date Care Activity Detail Author Start: 08-07-2026 Diabetes Screening Diabetes Screenin g [facility] Start: 11-10-2024 End: 11-10-2024 Patient encounter procedure 11/10/2024 2:00 PM EDT Office Visit Pulmonary Medicine [address] [facility] [place], [place] [id number] Jazmyne Liu APRN.VETERINARY TECHNICIAN ASSISTANT [address] [facility] [place] [address] Return in about 3 months (around 11/10/2024). Pulmonary Medicine Comment on above: Return in about 3 mo nths (around 11/10/2024). Start: 11-10-2024 End: 11-10-2024 ambulatory [facility] Comment on above: Severe persistent as thma without complication [J45.50] Start: 03-16-2024 Covid-19 Vaccine ( season) Covid-19 Vaccine ( season) [facility] Start: 03-16-2024 Influenza vaccination P [facility] Start: 03-16-2023 Influenza vaccination Influenza Vacc ine (#1) [facility] Start: 05-24-2021 COVID-19 Vaccine (3 - Pfizer series) COVID-19 Vaccine (3 - Pfizer series) [facility] Start: 2017 Administration of varicella zoster vaccine Zoster (Shingles) Vaccine (1 of 2) [facility] Start: 2017 Pneumococcal Vaccine : 50+ (1 of 1 - PCV) Pneumococcal Vaccine: 50+ (1 of 1 - PCV) [facility] Start: 2017 Shingrix Vaccine (1 of 2) Zabala grix Vaccine (1 of 2) [facility] Start: 2017 Zoster Vaccines (1 of 2) Zoste r Vaccines (1 of 2) [facility] Start: 01-06-2012 Lipid panel Lipid Screening [facility] Start: 01-06-2012 Screening for malign ant neoplasm of colon [facility] Start: 2007 Screening for malign ant neoplasm of breast [facility] Start: 1989 DTaP/Tdap/Td Vaccine s (1 - Tdap) DTaP/Tdap/Td Vaccines (1 - Tdap) [facility] Start: 01-06-1988 Screening for malign ant neoplasm of cervix [facility] Start: 1986 DTaP,Tdap and Td Vac cines (1 - Tdap) DTaP,Tdap and Td Vaccines (1 - Tdap) [facility] Start: 1986 Hepatitis B Vaccine (1 of 3 - 19+ 3-dose series) Hepatitis B Vaccine (1 of 3 - 19+ 3-dose series) [facility] Start: 1986 Urine microalbumin profile DTaP,Tdap,Td Vaccine (1 - Tdap) [facility] Start: 1985 Adult BMI Screening Adult BMI Screen ing [facility] Start: 1985 Anxiety Screening Anxiety Screening [facility] Start: 1985 Depression Screening Depression Scre ing [facility] Start: 1985 Diabetes mellitus screening Diabetes Screening [facility] Start: 1985 Hepatitis C screening Hepatitis C Sc reening [facility] Start: 1985 HIV screening HIV Screening [facility] Start: 1979 Depression Screening Depression Scre [facility] Start: 1979 Tobacco Screening Tobacco Screening [facility] Start: 01-06-1968 MMR Vaccines (1 of 1 - Standard series) MMR Vaccines (1 of 1 - Standard series) [facility] Start: 1967 Hepatitis B Vaccines (1 of 3 - 3-dose series) Hepatitis B Vaccines (1 of 3 - 3-dose series) [facility] Start: 1967 HIV screening HIV Screening [facility] Start: 1967 Lipid panel Lipid Panel [facility] Start: 1967 Screening for malign ant neoplasm of colon [facility] Start: 1967 Yearly Adult Physical Yearly Adult P hysical [facility] ECG 12 lead ECG 12 lead ECG STAT 08/07/2023 8:33 AM EST [facility] Service Area Work Phone: End: 09-12-2025 NITRIC OXIDE, EXHALED NITRIC OXIDE, EXHALED PFT Routine Severe persistent asthma without complication 1 Occurrences starting 08/12/2024 until 09/12/2025 [facility] Work Phone: Comment on above: 1 Occurrences starti ng 08/12/2024 until 09/12/2025 End: 09-12-2025 SPIROMETRY WITH DILATOR IF OBSTRUCTED SPIROMETRY WITH DILATOR IF OBSTRUCTED PFT Routine Severe persistent asthma without complication 1 Occurrences starting 08/12/2024 until 09/12/2025 [facility] Comment on above: 1 Occurrences starti ng 08/12/2024 until 09/12/2025 Payers Date Payer Category Payer Self-pay 2023 Unknown [id number] 2020 [employer] [facility] - Other [facility] [id number] 2020 Unknown [id number] 1967 Unknown [id number] 1967 Unknown [id number] 9.2.59 1967 Unknown [id number] 1967 Unknown [id number] 9.2.59 1967 Unknown [id number] 1967 Unknown [id number] 1967 Unknown [id number] 1967 Unknown [id number] 1959 Self-pay [id number] 1959 Unknown [id number] Unknown [id number] [id number] Social History Date Type Detail Facility Unknown if ever smoked [facility] [employer] Other Start: 08-12-2024 Sex Assigned At [facility] [employer] Other Tobacco smoking status VTIS Tobacco smoking consumption unknown [facility] Start: 1967 Sex Assigned At Not on file [facility] Work Phone: Start: 07-28-2023 End: 08-07-2023 Exposure to SARS-CoV-2 (event) Not sure [facility] Work Phone: Start: 05-12-2024 Sex Female (finding) [facility] Start: 08-12-2024 Tobacco smoking status NHIS Never smoked tobacco [facility] Start: 08-12-2024 Tobacco use and exposure Smokeless tobacco non-user [facility] Start: 08-12-2024 History of Social function [facility] National Score (1-100), lower number is lower risk 73 [facility] Clinical Notes 12-14-2022 to 08-19-2024 Telephone Encounter - Mattie Link MA - 08/19/2024 8:51 AM ESTTelephone Encounter - Mattie Link MA - 08/19/2024 8:51 AM ESTTelephone Encounter - Mattie Link MA - 08/14/2024 11:49 AM EST Note Date & Type Note Facility 08-19-2024 Telephone encounter Note Image has been imported into [employer] and is available to view. [facility] 08-19-2024 Miscellaneous Notes Image has been imported into [employer] and is available to view. Faxed image request to [facility] Confirmation received Images from the original note were not included. Doris Suarez MD P L[facility] Pulm Nurse Could we try to obtain images of CT chest 02/13/2024 from [facility] in [facility]? Thanks documented in this encounter [facility] 08-14-2024 Telephone encounter Note Faxed image request to [facility] Confirmation received [facility] 08-14-2024 Telephone encounter Note Images from the original note were not included. Doris Suarez MD P Ln Pulradha Nurse Could we try to obtain images of CT chest 02/13/2024 from [facility] in [facility]? Thanks [facility] 08-12-2024 Instructions Doris Suarez MD - 08/12/2024 2:02 PM EST It was a pleasure seeing you in the office today. Here is a summary of the plan we discussed: How to use an inhaler with or without a spacer- https://www.cdc.gov/asthma/inha ler_video/default.htm Please start Dulera inhaler - 2 puffs in the morning, 2 puffs in the evening, every day no matter what. Use the spacer (provided) and please rinse your mouth afterwards. Use the albuterol inhaler as needed if you are short of breath, or not at all if you are not short of breath. If the Dulera is too expensive, please ask the pharmacist about the following alternatives (in order of preference): Symbicort, Advair HFA, Breo, Advair diskus, Wixela, AirDuo. Please also ask the pharmacist if the 200mcg dosage of Dulera is covered (I have prescribed the 100mg dose) Please call the office or send me a message through [employer] if you have any questions. Sincerely, Doris Suarez MD documented in this encounter [facility] 08-12-2024 History and physical note . [facility] [place] [facility] Initial Visit Note Ms. Dacosta is a 59 year old female who presents to the [facility] [place]. Consultation requested by Rakesh Lundberg MD for an opinion regarding recurrent bronchitis. My final recommendations/evaluation will be communicated back to the requesting physician by way of shared medical record or letter via US mail. 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 Three separate bronchitis episodes. Symptoms return usually 1-2 weeks after completion of antibiotic course. First COVID illness in May 2020. Fever for 27 days. Required nebs in ED (not admitted) and inhalers at home. Treated at home with CPAP continuously even while awake. SpO2 70s at home, improved with nebs. Took six weeks to recover. After that, eventually recovered back to normal (no dyspnea, no recurrent infections). Second COVID illness this Fall. Severe myalgias, dyspneic, coughing. Treated with paxlovid with symptom improvement but not resolution. BP 80s/50s at home. Given albuterol inhaler - helped. Off of work for two weeks but did not get admitted to hospital. Did not measure SpO2 at home. After second COVID, does not feel back to normal. Persistent heaviness in the chest. No particular dyspnea outside of illness but has been inactive. One week after improved after COVID, developed bronchitis which progressed to pneumonia (cannot recall if CXR). Recurrent antibiotics -> recovery -> relapse cycle x 3 since that time. Symptoms of bronchitis have been coughing, heaviness in chest, dyspnea. No fevers. Sputum thick white or creamy. Treated each episode with levofloxacin. Cannot recall getting steroids - she suspects not. Last episode concluded beginning of June. Current stretch is her longest without bronchitis. Feels she may be getting sick again Evaluated for immunodeficiency by Chargeback Analyst at [facility]. On 06/09/2024. Had PFTs. FENO 12ppb. FEV1 127%, mild scooping of FV loop. Prescribed Trelelgy which she has not taken yet. 2009 - had a wedge resection of her left lung for a mass. FDG avid on PET. Ultimately determined to be pleural based. Mass resected. 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 No malignancy. No history of pulmonary conditions. No frequent infections prior. Never smoker. No seasonal allergies. On CPAP for JANIS, managed by neurologist (Dr Shabazz). Past Medical History: No past medical history on file. As above Past Surgical History: No past surgical history on file. As above Work and Social Histories: Social History Tobacco Use Smoking status: Never Smokeless tobacco: Never Never smoker. 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 Dirty environment, some smells, no major exposures though. No mold or water damage at home. Family History: No family history on file. PHYSICAL EXAM: BP 123/83 Pulse 83 Wt 170 lb 3.1 oz (77.2kg) SpO2 100% GEN: Alert, comfortable, sitting up in chair, no distress EYES: Anicteric sclera, no conjunctival injection HENT: Pharynx clear, tongue normal CV: RRR, no peripheral edema PULM: clear, no wheeze NEURO: appropriately interactive, No asterixis SKIN: Normal turgor, No palmar plethora EXT: No cyanosis or clubbing Objective Allergies: Codeine and Penicillins Outpatient Medications: See separate documentation Labs / Imaging / Diagnostic Studies: All radiography listed below personally reviewed by me Data [facility] from [facility] (in addition to that noted in HPI, and Past histories above): (Data from patient's OSH mychart shown on phone) CBC: last eos 100 (05/2024) IgE: 45 (wnl) PFT: 08/01/2024 Ratio 75% (normal) FEV1 120%, FVC 125% Reported positive bronchodilator response based on FEF 25-75. RV 129% (high) TLC 133% (high) DLCOc 10 3% (normal) CT Chest: 02/13/2024 (OSH, images unavailable) - [facility] Lung: Scattered linear densities and calcifications, chronic scarring is favored. Mild dependent atelectasis. No focal parenchymal infiltrates or significant pulmonary nodules. Pleura: No mass, effusion, pneumothorax Lizeth: Small calcified right hilar lymph nodes. Assessment and Plan: Ms. Dacosta is a 59 year old female who presents to the [facility] [place] for evaluation of bronchitis. #Recurrent bronchitis #Asthma Description of these bronchitis episodes-recurrent, only present after initial COVID infection, never associated with fever or systemic symptoms- is more consistent with exacerbation of airway inflammation/asthma. 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 Flow-volume loop shows mild scooping. She reports prior benefit with DuoNebs in the setting of pulmonary illness. Review of her immunology testing shows normal immunoglobulin levels. Her PPSV23 titers are low but she had not received any vaccine. Most importantly, she has no history of recurrent pulmonary infections prior to her last episode of COVID. Description of CT chest from outside hospital suggests mild scarring rather than a large burden of fibrosis. Largely unremarkable PFTs support this. 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 [facility] [place] [facility] Initial Visit Note Ms. Dacosta is a 59 year old female who presents to the [facility] [place]. Consultation requested by Rakesh Lundberg MD for an opinion regarding recurrent bronchitis. My final recommendations/evaluation will be communicated back to the requesting physician by way of shared medical record or letter via US mail. 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 Three separate bronchitis episodes. Symptoms return usually 1-2 weeks after completion of antibiotic course. First COVID illness in May 2020. Fever for 27 days. Required nebs in ED (not admitted) and inhalers at home. Treated at home with CPAP continuously even while awake. SpO2 70s at home, improved with nebs. Took six weeks to recover. After that, eventually recovered back to normal (no dyspnea, no recurrent infections). Second COVID illness this Fall. Severe myalgias, dyspneic, coughing. Treated with paxlovid with symptom improvement but not resolution. BP 80s/50s at home. Given albuterol inhaler - helped. Off of work for two weeks but did not get admitted to hospital. Did not measure SpO2 at home. After second COVID, does not feel back to normal. Persistent heaviness in the chest. No particular dyspnea outside of illness but has been inactive. One week after improved after COVID, developed bronchitis which progressed to pneumonia (cannot recall if CXR). Recurrent antibiotics -> recovery -> relapse cycle x 3 since that time. Symptoms of bronchitis have been coughing, heaviness in chest, dyspnea. No fevers. Sputum thick white or creamy. Treated each episode with levofloxacin. Cannot recall getting steroids - she suspects not. Last episode concluded beginning of June. Current stretch is her longest without bronchitis. Feels she may be getting sick again Evaluated for immunodeficiency by Chargeback Analyst at [facility]. On 06/09/2024. Had PFTs. FENO 12ppb. FEV1 127%, mild scooping of FV loop. Prescribed Trelelgy which she has not taken yet. 2009 - had a wedge resection of her left lung for a mass. FDG avid on PET. Ultimately determined to be pleural based. Mass resected. 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 No malignancy. No history of pulmonary conditions. No frequent infections prior. Never smoker. No seasonal allergies. On CPAP for JANIS, managed by neurologist (Dr Shabazz). Past Medical History: No past medical history on file. As above Past Surgical History: No past surgical history on file. As above Work and Social Histories: Social History Tobacco Use Smoking status: Never Smokeless tobacco: Never Never smoker. 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 Dirty environment, some smells, no major exposures though. No mold or water damage at home. Family History: No family history on file. PHYSICAL EXAM: BP 123/83 Pulse 83 Wt 170 lb 3.1 oz (77.2kg) SpO2 100% GEN: Alert, comfortable, sitting up in chair, no distress EYES: Anicteric sclera, no conjunctival injection HENT: Pharynx clear, tongue normal CV: RRR, no peripheral edema PULM: clear, no wheeze NEURO: appropriately interactive, No asterixis SKIN: Normal turgor, No palmar plethora EXT: No cyanosis or clubbing Objective Allergies: Codeine and Penicillins Outpatient Medications: See separate documentation Labs / Imaging / Diagnostic Studies: All radiography listed below personally reviewed by me Data Reviewed from [facility] (in addition to that noted in HPI, and Past histories above): (Data from patient's OSH mychart shown on phone) CBC: last eos 100 (05/2024) IgE: 45 (wnl) PFT: 08/01/2024 Ratio 75% (normal) FEV1 120%, FVC 125% Reported positive bronchodilator response based on FEF 25-75. RV 129% (high) TLC 133% (high) DLCOc 10 3% (normal) CT Chest: 02/13/2024 (OSH, images unavailable) - [facility] in [facility] Lung: Scattered linear densities and calcifications, chronic scarring is favored. Mild dependent atelectasis. No focal parenchymal infiltrates or significant pulmonary nodules. Pleura: No mass, effusion, pneumothorax Lizeth: Small calcified right hilar lymph nodes. Assessment and Plan: Ms. Dacosta is a 59 year old female who presents to the [facility] [place] for evaluation of bronchitis. #Recurrent bronchitis #Asthma Description of these bronchitis episodes-recurrent, only present after initial COVID infection, never associated with fever or systemic symptoms- is more consistent with exacerbation of airway inflammation/asthma. 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 Flow-volume loop shows mild scooping. She reports prior benefit with DuoNebs in the setting of pulmonary illness. Review of her immunology testing shows normal immunoglobulin levels. Her PPSV23 titers are low but she had not received any vaccine. Most importantly, she has no history of recurrent pulmonary infections prior to her last episode of COVID. Description of CT chest from outside hospital suggests mild scarring rather than a large burden of fibrosis. Largely unremarkable PFTs support this. 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 documented in this encounter [facility] Work Phone: 12-14-2022 Evaluation note Encounter Date Diagnosis Assessment [...] resolved. Patient verbalized understanding of treatment plan Continuing Education Records & Resources Other Evaluation note* Diagnosis Fall, initial encounter- Primary Closed head injury, initial encounter documented in this encounter [facility] Work Phone: Evaluation note* Diagnosis Severe persistent asthma without complication- Primary Shortness of breath documented in this encounter [facility] general Narrative - Reported* Type Description Date Medical History high blood pressure Medical History thyroid disease Surgical History C section Surgical History lobectomy Surgical History wrist surgery Surgical History bowel surgery Hospitalization History see above Continuing Education Records & Resources Other InstructionsNot on filedocumented in this encounter [facility] Outpatient Procedure (Routine) - Pending Review Specialty Diagnoses / Procedures Referred By Ivon gayle [facility] Diagnoses Severe persistent asthma without complication Procedures SPIROMETRY WITH DILATOR IF OBSTRUCTED BRNCDILAT RSPSE SPMTRY PRE&[place] [address] [place] [address] [facility] [place] [address] [place] [address] Referral ID Status Reason Start Date Expiration Date Visits Requested Visits Authorized [id number] Pending Review Auto-Generat ed Referral 08/12/2024 09/11/2025 1 1 * Outpatient Procedure (Routine) - Pending Review Specialty Diagnoses / Procedures Referred By Ivon gayle Referred To Contact [facility] Diagnoses Severe persistent asthma without complication Procedures NITRIC OXIDE, EXHALED NITRIC [place] [address] [address] [facility] [place] [address] Referral ID Status Reason Start Date Expiration Date Visits Requested Visits Authorized [id number] Pending Review Auto-Generat ed Referral 08/12/2024 09/11/2025 1 1 [facility] Summary Purpose Family History No Family History [...] and content) DATE CREATED AUTHOR 08/14/2022 [facility] DATE CREATED AUTHOR AUTHOR'S ORGANIZ ATION 08/31/2023 [facility] DATE CREATED AUTHOR AUTHOR'S ORGANIZ ATION 04/08/2024 [facility] DATE CREATED AUTHOR AUTHOR'S ORGANIZ ATION 06/12/2024 [facility] EPIC DATE CREATED AUTHOR AUTHOR'S ORGANIZ ATION 06/28/2024 [facility] DATE CREATED AUTHOR AUTHOR'S ORGANIZ ATION 08/21/2024 [facility] REASON FOR VISIT (unrecogniz ed section and content) Reason Comments Fall Hit head and upper b ack; +LOC no thinners Reason Comments Cough Reports getting sick a lot, covid in fall 2019 and fall 2023, then got bronchitis and pneumonia and then bronchitis again. Patient states she was told there is some lung scaring.Seen Allergy in [facility] Reason Comments Image request Scheduled Active and Recently Administ ered Medications (unrecognized section and content) Medication Order 08/05/2023 08/06/2023 08/07/2023 fentaNYL PF (Sublimaze) injection 50 mcg (COMPLETED) 50 mcg, intravenous, Once, On Sun08/07/23 at 0815, For 1 dose 0825 (Given - Provid er: Miya Brattoli, RN) Care Teams (unrecognized sec tion and content) Petal Shaper Hand Relationship Specialty Start Date End Date Rakesh Lundberg MD [address] [facility] [place] [address] PCP - General 09/06/09 Petal Shaper Hand Relationship Specialty Start Date End Date Rakesh Lundberg MD [address] [place] [facility] [place] [address] PCP - General Family Medicine 05/12/24 Petal Shaper Hand Relationship Specialty Start Date End Date Rakesh Lundberg MD [address] [place] [address] Referring Family Medicine 08/06/24 Petal Shaper Hand Relationship Specialty Start Date End Date Rakesh Lundberg MD [address] [facility] [place] [address] Referring Family Medicine 08/06/24 Source Comments (unrecognize d section and content) In the event this informatio n is protected by the Federal Confidentiality of Alcohol and Drug Abuse Patient Records regulations: The Federal rules restrict any use of the information to criminally investigate or prosecute any alcohol or drug abuse patient.[facility] the event this information is protected by the Federal Confidentiality of Alcohol and Drug Abuse Patient Records regulations: The Federal rules restrict any use of the information to criminally investigate or prosecute any alcohol or drug abuse patient.[facility] FOR RECORDS PERTAINING TO PATIENTS WHO ARE [...] BE BASED ON THE PRIMARY CLINICAL RECORDS. [facility]. provides no warranty or guarantee of the accuracy or completeness of information in this document.
--- NOTE | 2024-08-30 21:14 | ECG_ITS ---
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
--- NOTE | 2024-08-30 21:16 | CT_ITS ---
The [address] [address] Patient Name: PRAVEENA DACOSTA MRN: [id number] date: 1965 Sex: F Assigned Patient Location: ER Current Patient Location: ER Accession/Order Number: [id number] Exam Date: 08/30/2024 22:50 Report Date: 08/31/2024 01:05 At the request of: ORIN BURCIAGA Procedure: CT abdomen pelvis w con EXAM: CT abdomen pelvis w con HISTORY: abdominal pain COMPARISON: CT abdomen and pelvis examination dated 05/11/2024. TECHNIQUE: Axial CT images through the abdomen and pelvis were obtained after the intravenous administration of contrast. Coronal and sagittal reformats were obtained. Dose reduction techniques were achieved by using automated exposure control and/or adjustment of mA and/or kV according to patient size and/or use of iterative reconstruction technique. FINDINGS: There is mild bibasilar atelectasis. Calcified granulomas are seen in the lungs. Abdomen: The liver and spleen enhance homogeneously without focal lesion. There is mild intrahepatic biliary ductal dilatation. The gallbladder is unremarkable. There are a few subcentimeter hypodensities in the kidneys that are too small to characterize by CT size criteria. Liquid stool is seen throughout the small bowel loops and colon. Otherwise, the pancreas, adrenal glands, kidneys, and bowel loops, including the appendix, are unremarkable. There is no mesenteric or retroperitoneal lymphadenopathy. Pelvis: The bladder and rectum are unremarkable. There is no iliac or inguinal lymphadenopathy. The uterus is present. The ovaries appear within normal limits by CT. Bone windows show no aggressive osseous lesions. CT/CT abdomen pelvis w con IMPRESSION: 1. Liquid stool throughout the small bowel loops and colon, in keeping with enteritis and diarrhea. 2. Mild intrahepatic biliary ductal dilatation, nonspecific. 3. Normal appendix. Electronically authenticated by: Alin GLEASON Date: 08/31/2024 01:05
--- NOTE | 2024-08-30 21:16 | CT_ITS ---
The [address] [address] Patient Name: PRAVEENA DACOSTA MRN: [id number] date: 1965 Sex: F Assigned Patient Location: ER Current Patient Location: [facility] Accession/Order Number: [id number] Exam Date: 08/30/2024 22:50 Report Date: 08/31/2024 00:59 At the request of: ORIN BURCIAGA Procedure: CT angio chest EXAM: CT angio chest HISTORY: chest pain COMPARISON: CT chest examination dated 02/13/2024. TECHNIQUE: Axial CT images through the chest were obtained after the intravenous administration of contrast. Coronal and sagittal reformats were obtained. Dose reduction techniques were achieved by using automated exposure control and/or adjustment of mA and/or kV according to patient size and/or use of iterative reconstruction technique. FINDINGS: The study is technically adequate with a good contrast bolus to the pulmonary arteries. There are no filling defects or vascular cutoffs to indicate a pulmonary embolus. The pulmonary arteries are normal in size. There are scattered calcified granulomas in the lungs. There is mild bibasilar atelectasis. Suspected scarring is seen in the left upper lobe. The central airways are patent. No pleural effusion or pneumothorax is seen. The thoracic aorta is normal in course and caliber without evidence of an aneurysm. The cardiac chambers appear normal in size. There is no pericardial effusion. There is no mediastinal, hilar, or axillary lymphadenopathy by CT size criteria. There are calcified mediastinal and left hilar lymph nodes. Fluid is seen within the esophagus nearly to the thoracic inlet. Images through the upper abdomen reveal no significant abnormalities. No suspicious or aggressive bone lesions are seen. No acute fracture is seen. CT/CT angio chest IMPRESSION: 1. No evidence of pulmonary embolism or an acute cardiopulmonary abnormality. 2. Fluid within the esophagus nearly to the thoracic inlet. This could be secondary to gastroesophageal reflux, and places the patient at risk for aspiration. Electronically authenticated by: Alin GLEASON Date: 08/31/2024 00:59
[2024-08-30 21:24] LABS: Hematocrit 44.7 % (36.0-48.0); Hemoglobin 15.2 g/dL (12.0-16.0); Mean Corpuscular Hemoglobin 30.2 pg (26.7-34.0); Mean Corpuscular Volume 88.7 fL (81.0-99.0); Mean Platelet Volume 9.4 fL (9.5-13.5); Platelet Count 254 10^3/uL (150-450); Red Blood Count 5.04 10^6/uL (4.20-5.40); Red Cell Distribution Width 12.9 % (11.0-15.0); White Blood Count 10.8 10^3/uL (4.0-11.0)
[2024-08-30 21:32] LABS: INR 0.97; Partial Thromboplastin Time 26.5 sec (22.3-36.2); Prothrombin Time 10.3 sec (9.0-11.6)
[2024-08-30] MEDS: ONDANSETRON PF 4 MG/2 ML VIAL IV (21:32)
[2024-08-30] MEDS: MORPHINE SULFATE 4 MG/ML VIAL IV (21:32)
[2024-08-30 21:36] LABS: Lymphocytes Absolute Manual 0.54 10^3/uL (1.20-3.80); Monocytes Absolute Manual 0.32 10^3/uL (0.30-0.80); Segmented Neut Absolute Manual 9.82 10^3/uL (1.4-6.5)
[2024-08-30] MEDS: FAMOTIDINE/PF 20 MG/2 ML VIAL IV (21:36)
[2024-08-30 21:39] LABS: Alanine Aminotransferase 157 U/L (14-59); Albumin Globulin Ratio 1.1; Albumin Level 3.9 g/dL (3.4-5.0); Alkaline Phosphatase 113 U/L (46-116); Anion Gap 14.9; Aspartate Amino Transferase 169 U/L (15-37); BUN Creatinine Ratio 17.3; Bilirubin Total 0.8 mg/dL (0.2-1.0); Calcium 9.3 mg/dL (8.5-10.1); Carbon Dioxide 24.9 mmol/L (21.0-32.0); Chloride 103 mmol/L (98-107); Estimated GFR (African America >60 (>=60 mL/min/1.73m^2); Estimated GFR (Non-African Ame 58 (>=60 mL/min/1.73m^2); Globulin 3.4 g/dL; Glucose 102 mg/dL (74-106); Potassium 3.8 mmol/L (3.5-5.1); Sodium 139 mmol/L (136-145); Total Protein 7.3 g/dL (6.4-8.2); Troponin I High Sensitivity <4.0 pg/mL (4.0-51.3)
--- NOTE | 2024-08-30 22:03 | PC.NURSE ---
States nausea and pain has improved. Lying flat for comfort. Lights down
--- NOTE | 2024-08-30 22:13 | ED_ITS ---
HPI HPI - General Adult General Chief complaint: Chest Pain Stated complaint: VOMITTING, CP Time Seen by Provider: 08/30/24 20:49 Source: patient Mode of arrival: walk-in Limitations: no limitations History of Present Illness HPI narrative: 59-year-old female to the emergency department with chief complaint of chest/abdominal pain, nausea. Patient reports symptoms started over the last w [id number]. She reports they typically occur at night but now are occurring during the day as well. She reports that it is an immense pressure-like pain with some intermittent sharp pains located in her epigastrium. It radiates up into her chest and into her back. She has never had pain like this before. She reports nausea without vomiting. She denies any fever, sweats, chills at this point. No or other recent illness. She recently traveled to [place] and visited family and that is when the symptoms began. No cardiac history. Has a history of sleep apnea and hypothyroidism. She reports she is otherwise healthy. She tried taking some Prilosec but this did not help. Related Data Home Medications ?Medication ?Instructions ?Recorded ?Confirmed fluoxetine 10 mg capsule 10 mg PO DAILY 05/11/24 05/11/24 levothyroxine 125 mcg tablet 125 mcg PO DAILY 05/11/24 05/11/24 lisinopril 10 mg tablet 10 mg PO DAILY 05/11/24 05/11/24 modafinil 200 mg tablet 200 mg PO DAILY 05/11/24 05/11/24 Previous Rx's ?Medication ?Instructions ?Recorded ciprofloxacin HCl 500 mg tablet 500 mg PO BID 7 days #14 tabs 05/12/24 metronidazole 500 mg tablet 500 mg PO BID 7 days #14 tabs 05/12/24 Allergies Allergy/AdvReac Type Severity Reaction Status Date / Time penicillin G Allergy Severe Hives Verified 08/30/24 20:58 Opioid HPI Opioid Management Most Recent Opioid Data: Last Pain Scale 6 08/30/24 23:15 08/30/24 Last ED Pain Assessment 08/30/24 21:11 Last ORT Total Score 0 05/11/24 05:15 05/11/24 Last ORT Risk Category Low Risk 05/11/24 05:15 05/11/24 Review of Systems ROS Status of ROS 10 or more systems reviewed and unremark able except as noted in history and below [facility] Medical History (Updated 08/31/24 @ 02:53 by Chema Flores MD) Sleep apnea ?G47.30 - Sleep apnea, unspecified (ICD-10) Hypothyroidism ?E03.9 - Hypothyroidism, unspecified (ICD-10) HTN (hypertension) ?I10 - Essential (primary) hypertension (ICD-10) Surgical History History of lobectomy of lung ?Z90.2 - Acquired absence of lung [part of] (ICD-10) Family History Other Family history of CHF (congestive heart failure) Family history of cancer Family history of diabetes mellitus Family history of hypertension Family history of myocardial infarction Social History Within the past year, how often did you have a drink containing alcohol: monthly or less Smoking status: Never smoker Non-prescribed substance use: denies use Are you now , , , , never or living with a partner: In a typical week, how many times do you talk on the telephone with family, friends, or neighbors: 3 or more times per week How often do you get together with friends or relatives: 3 or more times per week Little interest or pleasure in doing things: not at all Feeling down, depressed, or hopeless: not at all Feel stressed/tense/nervous/anxious/difficulty sleeping: not at all Do you think of yourself as: straight/heterosexual Gender Identity: female Exam Narrative Exam Narrative: VITALS: I have reviewed the triage vital signs. GENERAL: Uncomfortable appearing female holding her upper abdomen. NEURO: Alert and oriented. Moves all extremities. Face is symmetric and expressive. EYES: PERRL. No scleral icterus or conjunctival injection. No discharge. HENT: Normocephalic, atraumatic. Hearing is grossly intact. Nares grossly patent and without discharge. Mucous membranes moist. NECK: No JVD. Patient moves neck without restriction. CARDIO: Rhythm regular. Normal rate. No murmur, rub, or gallop. Pulses equal bilaterally in the upper and lower extremity. No lower extremity edema. PULM: Lungs clear to auscultation in all soler. No wheezes, rales, or rhonchi. No conversational dyspnea. No splinting, stridor, or accessory muscle use. GI/: Abdomen is soft. Mild generalized tenderness in the upper abdomen. Normoactive bowel sounds. EXTREMITIES: Symmetric muscle bulk. No joint swelling. No clubbing, cyanosis, or deformity. SKIN: Warm and dry. Normal turgor. No rash or lesions appreciated. PSYCH: Mood, affect, and interaction is appropriate to the setting. Constitutional Vital Signs, click to edit/add: Last Vital Signs Temp 98.9 F 08/30/24 20:51 Pulse 93 H 08/31/24 01:40 Resp 18 08/31/24 01:40 BP 113/69 08/31/24 01:30 Pulse Ox 97 08/31/24 01:40 O2 Del Method Room Air 08/30/24 20:51 Course Vital Signs Vital signs: Vital Signs Temperature 98.9 F 08/30/24 20:51 Pulse Rate 101 H 08/30/24 20:51 Respiratory Rate 24 H 08/30/24 20:51 Blood Pressure 110/91 08/30/24 20:51 Pulse Oximetry 98 08/30/24 20:51 Oxygen Delivery Method Room Air 08/30/24 20:51 Temperature 98.9 F 08/30/24 20:51 Pulse Rate 93 H 08/31/24 01:40 Respiratory Rate 18 08/31/24 01:40 Blood Pressure 113/69 08/31/24 01:30 Pulse Oximetry 97 08/31/24 01:40 Oxygen Delivery Method Room Air 08/30/24 20:51 Medical Decision Making [facility] Narrative Medical decision making narrative: 59-year-old female to the emergency department chief complaint of chest/abdominal pain. Vital stable, the patient is afebrile. EKG without evidence of ischemia. Cardiac/abdominal workup is initiated. Given her tachycardia, chest pain report recent flight will obtain CTA of the chest. Given nausea and upper abdominal pain will continue CT scan into the abdomen. CTA Chest: Negative CT abdomen pelvis: Fluid-filled bowel. Intrahepatic ductal dilation. No other acute findings Lab work reviewed and noted. She has a mild elevation of her ALT and AST without alk phos or bili abnormality. Her lipase is normal. Troponin negative. EKG without evidence of ischemia. Patient has intractable nausea. Case discussed with hospitalist. Will plan for admission and further evaluation. Medical Records Medical records reviewed: Yes I reviewed the patient's medical records Lab Data Lab results reviewed: Yes I reviewed the patient's lab results Labs: Lab Results 08/30/24 08/30/24 Range/Units 21:02 22:15 WBC 10.8 (4.0-11.0) 10^3/uL RBC 5.04 (4.20-5.40) 10^6/uL Hgb 15.2 (12.0-16.0) g/dL Hct 44.7 (36.0-48.0) % MCV 88.7 (81.0-99.0) fL MCH 30.2 (26.7-34.0) pg MCHC 34.0 (29.9-35.2) g/dL RDW 12.9 (11.0-15.0) % Plt Count 254 (150-450) 10^3/uL MPV 9.4 L (9.5-13.5) fL Seg Neuts % (Manual) 91.0 H (43.0-75.0) Lymphocytes % (Manual) 5.0 L (20.5-60.0) % Monocytes % (Manual) 3.0 (1.7-12.0) % Eosinophils % (Manual) 1.0 (0.9-7.0) % Basophils % (Manual) 0.0 L (0.2-2.0) % Neutrophils # (Manual) 9.82 H (1.4-6.5) 10^3/uL Lymphocytes # (Manual) 0.54 L (1.20-3.80) 10^3/uL Monocytes # (Manual) 0.32 (0.30-0.80) 10^3/uL Eosinophils # (Manual) 0.10 (0.00-0.70) 10^3/uL Basophils # (Manual) 0.00 (0.00-0.10) 10^3/uL PT 10.3 (9.0-11.6) sec INR 0.97 APTT 26.5 (22.3-36.2) sec Sodium 139 (136-145) mmol/L Potassium 3.8 (3.5-5.1) mmol/L Chloride 103 (98-107) mmol/L Carbon Dioxide 24.9 (21.0-32.0) mmol/L Anion Gap 14.9 BUN 17.0 (7.0-18.0) mg/dL Creatinine 0.98 (0.55-1.02) mg/dL Est GFR ( Amer) >60 (>=60 mL/min/1.73m^2) Est GFR (Non-Af Amer) 58 L (>=60 mL/min/1.73m^2) BUN/Creatinine Ratio 17.3 Glucose 102 (74-106) mg/dL Calcium 9.3 (8.5-10.1) mg/dL Total Bilirubin 0.8 (0.2-1.0) mg/dL AST 169 H (15-37) U/L ALT 157 H (14-59) U/L Alkaline Phosphatase 113 (46-116) U/L Troponin I High Sens <4.0 L <4.0 L (4.0-51.3) pg/mL Total Protein 7.3 (6.4-8.2) g/dL Albumin 3.9 (3.4-5.0) g/dL Globulin 3.4 g/dL Albumin/Globulin Ratio 1.1 Lipase 27.0 (16.0-77.0) U/L Imaging Data CT scan - abdomen: Attestation: I have reviewed the pertinent imaging results. Radiologist's impression: ITS Impressions Abdomen/Pelvis CT 08/30/24 21:16 IMPRESSION: 1. Liquid stool throughout the small bowel loops and colon, in keeping with enteritis and diarrhea. 2. Mild intrahepatic biliary ductal dilatation, nonspecific. 3. Normal appendix. Electronically authenticated by: Alin GLEASON Date: 08/31/2024 01:05 Chest CTA 08/30/24 21:16 IMPRESSION: 1. No evidence of pulmonary embolism or an acute cardiopulmonary abnormality. 2. Fluid within the esophagus nearly to the thoracic inlet. This could be secondary to gastroesophageal reflux, and places the patient at risk for aspiration. Electronically authenticated by: Alin GLEASON Date: 08/31/2024 00:59 ECG Data Attestation: ?I have reviewed the pertinent ECG results. (Normal sinus rhythm at a rate of 96. No STEMI. Normal QTc at 387.) Discharge Plan Discharge Chief Complaint: Chest Pain Clinical Impression: Intractable nausea, Transaminitis Patient Disposition: Admitted As Inpatient Time of Disposition Decision: 02:53 Condition: Good Prescriptions / Home Meds: No Action modafinil 200 mg tablet 200 mg PO DAILY levothyroxine 125 mcg tablet 125 mcg PO DAILY lisinopril 10 mg tablet 10 mg PO DAILY fluoxetine 10 mg capsule 10 mg PO DAILY ciprofloxacin HCl 500 mg tablet 500 mg PO BID 7 Days Qty: 14 0RF metronidazole 500 mg tablet 500 mg PO BID 7 Days Qty: 14 0RF Print Language: Polish
[2024-08-30 22:42] LABS: Troponin I High Sensitivity <4.0 pg/mL (4.0-51.3)
[2024-08-30] MEDS: HYDROMORPHONE HCL 0.5 MG/0.5 ML SYRINGE IV (23:15)
[2024-08-31] VITALS (33 sets, daily range): BP systolic 96–118; BP diastolic 55–74; PULSE 60–102; TEMP 36.8–38.7; O2SAT 88–100; BMI 27.8
[2024-08-31] MEDS: PROMETHAZINE HCL 25 MG in 0.9 % SODIUM CHLORIDE 50 ML 204 MG IV ×2 (01:33→20:34)
--- OUTSIDE RECORDS SUMMARY | 2024-08-31 02:53 | XMS_ITS | CCD ---
Author Organization [facility] CliniSyca Care Team Providers Care Cam Maker Name Role Phone DR RAKESH LUNDBERG Primary [...] Rakesh Lundberg MD Primary Care Provider [phone] RAKESH LUNDBERG Primary Care Unavailable RAJ DENNISON Attending Unavailable Rakesh Lundberg MD Primary Care Provider DAVE ORTEGA Attending Unavailable BREANN TALLEY Attending Unavailable Kana Montilla Attending Unavailable Kana Montilla Admitting Unavailable Rakesh Lundberg Primary Care Unavailable Rakesh Lundberg MD Unavailable DORIS SUAREZ Attending Unavailable RAKESH LUNDBERG Referring Unavailable Allergies Allergy Classification Reported Allergen(s) Allergy Type Date of Onset Reaction(s) Facility (2 sources) Codeine; Translations: [CODEINE] Drug Allergy 01-29-20 14 [facility] Repository (1 source) diphenhydrAMINE Drug Allergy 04-25-20 16 [facility] Repository (1 source) Erythromycin Drug Allergy 01-29-20 14 [facility] Repository (1 source) Penicillins Drug allergy (disorder) 01-29-20 14 [facility] Repository (1 source) Penicillin Drug Allergy [employer] Other (2 sources) Amoxicillin; Translations: [AMOXICILLIN] Drug Allergy 05-21-20 [facility] (3 sources) Codeine Drug Allergy 08-07-19 24 Anxiety, Other: See Comments, [facility] Work Phone: (1 source) Codeine Drug Allergy 06-04-20 [facility] Repository (1 source) Erythromycin Drug Allergy 06-04-20 [facility] Repository (1 source) Penicillins Drug allergy (disorder) 06-04-20 [facility] Repository (2 sources) Penicillins Drug Allergy 05-21-20 Anaphylaxis, [facility] Medications Current Medications Medication Drug Class(es) Dates Sig (Normalized) Sig (Original) [id number] 200 actuat albuterol 0.09 mg/actuat metered dose [...] Test Name Value Interpretation Reference Range Facility [facility] 08-14-2024 [facility] Telephone (PULMLO) LEIDA DACOSTA ([id number]) 1965 F Date Time Provider Department 08/14/24 DORIS SUAREZ PULJAVI During your visit today, we recorded the following information about you: Mattie Link MA 08/14/2024 10:59 AM Signed Doris Suarez MD P Ln Pulm Nurse Could we try to obtain images of CT chest 02/13/2024 from [facility] in [facility]? Thanks Mattie Link MA 08/14/2024 11:49 AM Signed Faxed image request to [facility] Confirmation received Mattie Link MA 08/19/2024 8:52 AM Signed Image has been imported into [facility] and is available to view. Doris Suarez [...] Status:Closed by MATTIE LINK on 08/19/24 Normal [facility] CNOVon 08-12-2024 CNOV Office Visit (PULMLO ) LEIDA DACOSTA ([id number]) 1965 F Date Time Provider Department 08/12/24 1:00 PM DORIS SUAREZ PULMLO During your visit today, we recorded the following information about you: Pulse Blood pressure Weight 83/minute 123/83 77.2 kg Doris Suarez MD 08/14/2024 10:50 AM Signed . [facility] [place] [facility] Initial Visit Note Ms. Dacosta is a 59 year old female who presents to the [facility] [place]. Consultation requested by Rakesh Lundberg MD for [...] getting sick again Evaluated for immunodeficiency by Tail Board Worker at [facility]. On 06/09/2024. Had PFTs. FENO 12ppb. FEV1 [...] personally reviewed by me Data Reviewed from [facility] (in addition to that noted in HPI, and Past histories above): (Data from patient's OSH mychart shown on phone) CBC: last eos 100 (05/2024) IgE: 45 (wnl) PFT: 08/01/2024 Ratio 75% (normal) FEV1 120%, FVC 125% Reported positive bronchodilator response based on FEF 25-75. RV 129% (high) TLC 133% (high) DLCOc 10 3% (normal) CT Chest: 02/13/2024 (OSH, images unavailable) - [facility] in [facility] Lung: Scattered linear densities and calcifications, chronic scarring is favored. Mild dependent atelectasis. No focal parenchymal infiltrates or significant pulmonary nodules. Pleura: No mass, effusion, pneumothorax Lizeth: Small calcified right hilar lymph nodes. Assessment and Plan: Ms. Dacosta is a 59 year old female who presents to the [facility] [place] for evaluation of bronchitis. #Recurrent bronchitis #Asthma (more content not included)... Normal [facility] HISTORY PHYSICALon HISTORY PHYSICAL HNO ID: [id number] Author: DORIS SUAREZ MD Service: ? Author Type: Physician Type: H&P Filed: 08/14/2024 10:50 Note Text: . [facility] [place] [facility] Initial Visit Note Ms. Dacosta is a 59 year old female who presents to the [facility] [place]. Consultation requested by Rakesh Lundberg MD for [...] getting sick again Evaluated for immunodeficiency by Tail Board Worker at [facility]. On 06/09/2024. Had PFTs. FENO 12ppb. FEV1 [...] personally reviewed by me Data Reviewed from [facility] (in addition to that noted in HPI, and Past histories above): (Data from patient's OSH mychart shown on phone) CBC: last eos 100 (05/2024) IgE: 45 (wnl) PFT: 08/01/2024 Ratio 75% (normal) FEV1 120%, FVC 125% Reported positive bronchodilator response based on FEF 25-75. RV 129% (high) TLC 133% (high) DLCOc 10 3% (normal) CT Chest: 02/13/2024 (OSH, images unavailable) - [facility] in [facility] Lung: Scattered linear densities and calcifications, chronic scarring is favored. Mild dependent atelectasis. No focal parenchymal infiltrates or significant pulmonary nodules. Pleura: No mass, effusion, pneumothorax Lizeth: Small calcified right hilar lymph nodes. Assessment and Plan: Ms. Dacosta is a 59 year old female who presents to the [facility] [place] for evaluation of bronchitis. #Recurrent bronchitis #Asthma Description of these bronchitis episodes-recurrent, only present after initial COVID infection, never associated with fever or systemic symptoms- is more consistent with exacerbation of airway inflammation/asthma. 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 Normal [facility] Multiple labson 05-11-2024 [facility] CBC W Auto Differential pane l (Bld)on 08-07-2023 Basophils (Bld) [#/Vol] 0.03 10*3/uL [facility] Basophils/100 WBC (Bld) 0.4 % 0.0 - 2.0 % [facility] Eosinophils (Bld) [#/Vol] 0.06 10*3/uL [facility] Eosinophils/100 WBC (Bld) 0.9 % 0.0 - 6.0 % [facility] Erythrocyte distribution width (RBC) [Ratio] 13.2 % 11.5 - 14.5 % [facility] Hematocrit (Bld) [Volume fraction] 41.6 % 36.0 - 46.0 % [facility] Hemoglobin (Bld) [Mass/Vol] 13.8 g/dL 12.0 - 16.0 g/dL [facility] Immature granulocytes (Bld) [#/Vol] 0.07 10*3/uL [facility] Immature granulocytes/100 WBC (Bld) 1.0 % High 0.0 - 0.9 % [facility] Comment on above: Immature Granulocyte Count (IG) includes promyelocytes, myelocytes and metamyelocytes but does not include bands. Percent differential counts (%) should be interpreted in the context of the absolute cell counts (cells/UL). Interpretation and review of laboratory results Abnormal [facility] Lymphocytes (Bld) [#/Vol] 2.17 10*3/uL [facility] Lymphocytes/100 WBC (Bld) 32.1 % 13.0 - 44.0 % [facility] MCH (RBC) [Entitic mass] 29.6 pg 26.0 - 34.0 pg [facility] MCHC (RBC) [Mass/Vol] 33.2 g/dL 32.0 - 36.0 g/dL [facility] MCV (RBC) [Entitic vol] 89 fL 80 - 100 fL [facility] Monocytes (Bld) [#/Vol] 0.32 10*3/uL [facility] Monocytes/100 WBC (Bld) 4.7 % 2.0 - 10.0 % [facility] Neutrophils (Bld) [#/Vol] 4.12 10*3/uL [facility] Comment on above: Percent differential counts (%) should be interpreted in the context of the absolute cell counts (cells/uL). Neutrophils/100 WBC (Bld) 60.9 % 40.0 - 80.0 % [facility] Nucleated RBC/100 WBC (Bld) [Ratio] 0.0 % [facility] Platelets (Bld) [#/Vol] 234 10*3/uL [facility] RBC (Bld) [#/Vol] 4.66 10*6/uL [facility] WBC (Bld) [#/Vol] 6.8 10*3/uL [facility] Basophils (Bld) [#/Vol] 0.03 x10*3/uL Normal 0.00-0.10 [facility] Comment on above: Performed By: #### 5 7021-8 #### MIK FREITAS ([id number]) [facility] ([facility]) [address] [place] [address] Basophils/100 WBC (Bld) 0.4 % Normal 0.0-2.0 [facility] Comment on above: Performed By: #### 5 7021-8 #### MIK FREITAS ([id number]) [facility] ([facility]) [address] [place] [address] Eosinophils (Bld) [#/Vol] 0.06 x10*3/uL Normal 0.00-0.70 [facility] Comment on above: Performed By: #### 5 7021-8 #### MIK FREITAS ([id number]) [facility] ([facility]) [address] [place] [address] Eosinophils/100 WBC (Bld) 0.9 % Normal 0.0-6.0 [facility] Comment on above: Performed By: #### 5 7021-8 #### MIK FREITAS ([id number]) [facility] ([facility]) [address] [place] [address] Erythrocyte distribution width (RBC) [Ratio] 13.2 % Normal 11.5-14.5 [facility] Comment on above: Performed By: #### 5 7021-8 #### MIK FREITAS ([id number]) [facility] ([facility]) [address] [place] [address] Hematocrit (Bld) [Volume fraction] 41.6 % Normal 36.0-46.0 [facility] Comment on above: Performed By: #### 5 7021-8 #### MIK FREITAS ([id number]) [facility] ([facility]) [address] [place] [address] Hemoglobin (Bld) [Mass/Vol] 13.8 g/dL Normal 12.0-16.0 [facility] Comment on above: Performed By: #### 5 7021-8 #### MIK FREITAS ([id number]) [facility] ([facility]) [address] [place] [address] Immature granulocytes (Bld) [#/Vol] 0.07 x10*3/uL Normal 0.00-0.70 [facility] Comment on above: Performed By: #### 5 7021-8 #### MIK FREITAS ([id number]) [facility] ([facility]) [address] [place] [address] Immature granulocytes/100 WBC (Bld) 1.0 % High 0.0-0.9 [facility] Comment on above: Result Comment: Azul ture Granulocyte Count (IG) includes promyelocytes, myelocytes and metamyelocytes but does not include bands. Percent differential counts (%) should be interpreted in the context of the absolute cell counts (cells/UL). Performed By: #### 5 7021-8 #### MIK FREITAS ([id number]) [facility] ([facility]) [address] [place] [address] Lymphocytes (Bld) [#/Vol] 2.17 x10*3/uL Normal 1.20-4.80 [facility] Comment on above: Performed By: #### 5 7021-8 #### MIK FREITAS ([id number]) [facility] ([facility]) [address] [place] [address] Lymphocytes/100 WBC (Bld) 32.1 % Normal 13.0-44.0 [facility] Comment on above: Performed By: #### 5 7021-8 #### MIK FREITAS ([id number]) [facility] ([facility]) [address] [place] [address] MCH (RBC) [Entitic mass] 29.6 pg Normal 26.0-34.0 [facility] Comment on above: Performed By: #### 5 7021-8 #### MIK FREITAS ([id number]) [facility] ([facility]) [address] [place] [address] MCHC (RBC) [Mass/Vol] 33.2 g/dL Normal 32.0-36.0 [facility] Comment on above: Performed By: #### 5 7021-8 #### MIK FREITAS (71051) [facility] ([facility]) [address] [place] [address] MCV (RBC) [Entitic vol] 89 fL Normal 80-100 [facility] Comment on above: Performed By: #### 5 7021-8 #### MIK FREITAS ([id number]) [facility] ([facility]) [address] [place] [address] Monocytes (Bld) [#/Vol] 0.32 x10*3/uL Normal 0.10-1.00 [facility] Comment on above: Performed By: #### 5 7021-8 #### MIK FREITAS ([id number]) [facility] ([facility]) [address] [place] [address] Monocytes/100 WBC (Bld) 4.7 % Normal 2.0-10.0 [facility] Comment on above: Performed By: #### 5 7021-8 #### MIK FREITAS ([id number]) [facility] ([facility]) [address] [place] [address] Neutrophils (Bld) [#/Vol] 4.12 x10*3/uL Normal 1.20-7.70 [facility] Comment on above: Result Comment: Perc ent differential counts (%) should be interpreted in the context of the absolute cell counts (cells/uL). Performed By: #### 5 7021-8 #### MIK FREITAS ([id number]) [facility] ([facility]) [address] [place] [address] Neutrophils/100 WBC (Bld) 60.9 % Normal 40.0-80.0 [facility] Comment on above: Performed By: #### 5 7021-8 #### MIK FREITAS ([id number]) [facility] ([facility]) [address] [place] [address] Nucleated RBC/100 WBC (Bld) [Ratio] 0.0 /100 WBCs Normal 0.0-0.0 [facility] Comment on above: Performed By: #### 5 7021-8 #### MIK FREITAS (28053) [facility] ([facility]) [address] [place] [address] Platelets (Bld) [#/Vol] 234 x10*3/uL Normal 150-450 [facility] Comment on above: Performed By: #### 5 7021-8 #### MIK FREITAS (22114) [facility] ([facility]) [address] [place] [address] RBC (Bld) [#/Vol] 4.66 x10*6/uL Normal 4.00-5.20 [facility] Comment on above: Performed By: #### 5 7021-8 #### MIK FREITAS ([id number]) [facility] ([facility]) [address] [place] [address] WBC (Bld) [#/Vol] 6.8 x10*3/uL Normal 4.4-11.3 [facility] Comment on above: Performed By: #### 5 7021-8 #### MIK FREITAS (50509) [facility] ([facility]) [address] [place] [address] CT CERVICAL SPINE WO IV CONT Phoebe 08-07-2023 CT CERVICAL SPINE WO IV CONTRAST Interpreted By: Willy Anderson, STUDY: CT CERVICAL SPINE WO IV CONTRAST; 08/07/2023 9:01 am INDICATION: Signs/Symptoms:Mechan ical fall, no thinners, positive LOC. COMPARISON: None. ACCESSION NUMBER(S): [id number] ORDERING CLINICIAN: DIMPLE MADRID TECHNIQUE: Axial CT [...] Willy Anderson 08/07/2023 9:41 AM Dictation workstation: [id number] [facility] CT Cervical spine WO contras ton 08-07-2023 No evidence for an acute fracture or subluxation of the cervical spine. MACRO: None Signed by: Willy Anderson 08/07/2023 9:41 AM Dictation workstation: [id number] MMODAL Interpreted By: Willy Anderson, STUDY: CT CERVICAL SPINE WO IV CONTRAST; 08/07/2023 9:01 am INDICATION: Signs/Symptoms:Mechan ical fall, no thinners, positive LOC. COMPARISON: None. ACCESSION NUMBER(S): [id number] ORDERING CLINICIAN: DIMPLE MADRID TECHNIQUE: Axial CT [...] thinners, positive LOC. COMPARISON: None. ACCESSION NUMBER(S): [id number] ORDERING CLINICIAN: DIMPLE MADRID TECHNIQUE: Axial CT [...] Willy Anderson 08/07/2023 9:41 AM Dictation workstation: [id number] [facility] Work Phone: [facility] Work Phone: CT HEAD WO IV CONTRASTon CT HEAD WO IV CONTRAST Interpreted By: Willy Anderson, STUDY: CT HEAD WO IV CONTRAST; 08/07/2023 9:01 am INDICATION: Signs/Symptoms:Mechan ical fall, no thinners, positive LOC. COMPARISON: None. ACCESSION NUMBER(S): [id number] ORDERING CLINICIAN: DIMPLE MADRID TECHNIQUE: Noncontrast axial [...] Willy Anderson 08/07/2023 9:38 AM Dictation workstation: [id number] [facility] CT Head WO contraston 2023 No acute intracrania l hemorrhage, mass effect, or calvarial fracture. MACRO: None Signed by: Willy Anderson 08/07/2023 9:38 AM Dictation workstation: [id number] MMODAL Interpreted By: Willy Anderson, STUDY: CT HEAD WO IV CONTRAST; 08/07/2023 9:01 am INDICATION: Signs/Symptoms:Mechan ical fall, no thinners, positive LOC. COMPARISON: None. ACCESSION NUMBER(S): [id number] ORDERING CLINICIAN: DIMPLE MADRID TECHNIQUE: Noncontrast axial [...] thinners, positive LOC. COMPARISON: None. ACCESSION NUMBER(S): [id number] ORDERING CLINICIAN: DIMPLE MADRID TECHNIQUE: Noncontrast axial [...] Willy Anderson 08/07/2023 9:38 AM Dictation workstation: [id number] [facility] Work Phone: CT Head WO contrastOrdered B y: Willy Anderson on 08-07-2023 [facility] Work Phone: CT THORACIC SPINE WO IV CONT RASTon 08-07-2023 CT THORACIC SPINE WO IV CONTRAST Interpreted By: Willy Anderson, STUDY: CT THORACIC SPINE WO IV CONTRAST; 08/07/2023 9:01 am INDICATION: Signs/Symptoms:Mechan ical fall, no thinners, positive LOC, thoracic spinal tenderness. COMPARISON: None. ACCESSION NUMBER(S): [id number] ORDERING CLINICIAN: DIMPLE MADRID TECHNIQUE: Axial CT [...] Willy Anderson 08/07/2023 9:48 AM Dictation workstation: [id number] [facility] CT Thoracic spine WO contras ton 08-07-2023 No acute osseous abnormality of the thoracic spine. Mild chronic appearing anterior wedging of a few scattered thoracic vertebral bodies as above. MACRO: None Signed by: Willy Anderson 08/07/2023 9:48 AM Dictation workstation: [id number] MMODAL Interpreted By: Willy Anderson, STUDY: CT THORACIC SPINE WO IV CONTRAST; 08/07/2023 9:01 am INDICATION: Signs/Symptoms:Mechan ical fall, no thinners, positive LOC, thoracic spinal tenderness. COMPARISON: None. ACCESSION NUMBER(S): [id number] ORDERING CLINICIAN: DIMPLE MADRID TECHNIQUE: Axial CT [...] thoracic spinal tenderness. COMPARISON: None. ACCESSION NUMBER(S): [id number] ORDERING CLINICIAN: DIMPLE MADRID TECHNIQUE: Axial CT [...] Willy Anderson 08/07/2023 9:48 AM Dictation workstation: [id number] [facility] Work Phone: [facility] Work Phone: Coagulation tissue factor in ducedon 08-07-2023 PT Coag (PPP) [Time] 11.1 s Normal 9.8-12.8 [facility] Comment on above: Performed By: #### 5 902-2 #### MIK FREITAS ([id number]) [facility] ([facility]) [address] [place] [address] Comprehensive metabolic 2000 panelon 08-07-2023 Albumin BCP dye [Mass/Vol] 4.7 g/dL 3.4 - 5.0 g/dL [facility] ALP [Catalytic activity/Vol] 61 U/L 33 - 110 U/L [facility] ALT With P-5'-P [Catalytic activity/Vol] 27 U/L 7 - 45 U/L [facility] Comment on above: Patients treated wit h Sulfasalazine may generate falsely decreased results for ALT. Anion gap [Moles/Vol] 11 mmol/L 10 - 20 mmol/L [facility] AST With P-5'-P [Catalytic activity/Vol] 23 U/L 9 - 39 U/L [facility] Bilirubin [Mass/Vol] 0.5 mg/dL 0.0 - 1 .2 mg/dL [facility] Calcium [Mass/Vol] 9.4 mg/dL 8.6 - 10. 3 mg/dL [facility] Chloride [Moles/Vol] 101 mmol/L 98 - 10 7 mmol/L [facility] CO2 [Moles/Vol] 28 mmol/L 21 - 32 mmol/L [facility] Creatinine [Mass/Vol] 0.75 mg/dL 0.50 - 1.05 mg/dL [facility] eGFR - PINF [facility] Comment on above: Calculations of danielle mated GFR are performed using the 2020 CKD-EPI Study Refit equation without the race variable for the IDMS-Traceable creatinine methods. https://jasn.asnjournals.org/content//ASN.2770842 988 Glucose [Mass/Vol] 108 mg/dL High 74 - 99 mg/dL [facility] Interpretation and review of laboratory results Abnormal [facility] Potassium [Moles/Vol] 3.8 mmol/L 3.5 - 5.3 mmol/L [facility] Protein [Mass/Vol] 7.8 g/dL 6.4 - 8.2 g/dL Un [facility] Sodium [Moles/Vol] 136 mmol/L 136 - 145 mmol/L [facility] Urea nitrogen [Mass/Vol] 13 mg/dL 6 - 23 mg/dL [facility] Albumin BCP dye [Mass/Vol] 4.7 g/dL Normal 3.4-5.0 [facility] Comment on above: Performed By: #### 2 4323-8 #### MIK FREITAS ([id number]) [facility] ([facility]) [address] [place] [address] ALP [Catalytic activity/Vol] 61 U/L Normal 33-110 [facility] Comment on above: Performed By: #### 2 4323-8 #### MIK FREITAS ([id number]) [facility] ([facility]) [address] [place] [address] ALT With P-5'-P [Catalytic activity/Vol] 27 U/L Normal 7-45 [facility] Comment on above: Result Comment: [place] ents treated with Sulfasalazine may generate falsely decreased results for ALT. Performed By: #### 2 4323-8 #### MIK FREITAS (68404) [facility] ([facility]) [address] [place] [address] Anion gap [Moles/Vol] 11 mmol/L Normal 10-20 [facility] Comment on above: Performed By: #### 2 4323-8 #### MIK FREITAS ([id number]) [facility] ([facility]) [address] [facility] [place] [address] AST With P-5'-P [Catalytic activity/Vol] 23 U/L Normal 9-39 [facility] Comment on above: Performed By: #### 2 4323-8 #### MIK FREITAS ([id number]) [facility] ([facility]) [address] [place] [address] Bilirubin [Mass/Vol] 0.5 mg/dL Normal 0.0-1.2 [facility] Comment on above: Performed By: #### 2 4323-8 #### MIK FREITAS (00893) [facility] ([facility]) [address] [place] [address] Calcium [Mass/Vol] 9.4 mg/dL Normal 8.6-10.3 [facility] Comment on above: Performed By: #### 2 4323-8 #### MIK FREITAS ([id number]) [facility] ([facility]) [address] [place] [address] Chloride [Moles/Vol] 101 mmol/L Normal 98-107 [facility] Comment on above: Performed By: #### 2 4323-8 #### MIK FREITAS ([id number]) [facility] ([facility]) [address] [place] [address] CO2 [Moles/Vol] 28 mmol/L Normal 21-32 [facility] Comment on above: Performed By: #### 2 4323-8 #### MIK FREITAS ([id number]) [facility] ([facility]) [address] [facility] [place] [address] Creatinine [Mass/Vol] 0.75 mg/dL Normal 0.50-1.05 [facility] Comment on above: Performed By: #### 2 4323-8 #### MIK FREITAS ([id number]) [facility] ([facility]) [address] [place] [address] GFR/1.73 sq M.predicted MDRD (S/P/Bld) [Vol rate/Area] mL/min/{1.73_m2} Normal >60 [facility] Comment on above: Result Comment: Calc ulations of estimated GFR are performed using the 2020 CKD-EPI Study Refit equation without the race variable for the IDMS-Traceable creatinine methods. https://jasn.asnjournals.org/content//ASN.6468094 988 Performed By: #### 2 4323-8 #### MIK FREITAS ([id number]) [facility] ([facility]) [address] [place] [address] Glucose [Mass/Vol] 108 mg/dL High 74-99 [facility] Comment on above: Performed By: #### 2 4323-8 #### MIK FREITAS ([id number]) [facility] ([facility]) [address] [place] [address] Potassium [Moles/Vol] 3.8 mmol/L Normal 3.5-5.3 [facility] Comment on above: Performed By: #### 2 4323-8 #### MIK FREITAS ([id number]) [facility] ([facility]) [id number] [place] [address] Protein [Mass/Vol] 7.8 g/dL Normal 6.4-8.2 [facility] Comment on above: Performed By: #### 2 4323-8 #### MIK FREITAS ([id number]) [facility] ([facility]) [address] [place] [address] Sodium [Moles/Vol] 136 mmol/L Normal 136-145 [facility] Comment on above: Performed By: #### 2 4323-8 #### MIK FREITAS ([id number]) [facility] ([facility]) [address] [place] [address] Urea nitrogen [Mass/Vol] 13 mg/dL Normal 01-05 [facility] Comment on above: Performed By: #### 2 4323-8 #### MIK FREITAS ([id number]) [facility] ([facility]) [address] [place] [address] ECG 12-LEADon 08-07-2023 ECG 12-LEAD Ventricular Rate 73 Atrial Rate 73 P-R Interval 168 QRS Duration 70 Q-T Interval 392 QTC Calculation(Bazett) 431 P Se[place] 32 R Seaford 43 T [place] 24 QRS Count 12 Q Onset 225 P Onset 141 P Offset 194 T Offset 421 QTC Fredericia 418 Diagnosis Normal sinus rhythm Septal infarct , age undetermined Abnormal ECG No previous ECGs available Confirmed by oJsie Anthony ([id number]) on 08/29/2023 9:59:19 PM Normal [facility] No Panel Informationon 08-07 Radiology Study observation (narrative) [facility] Work Phone: PT Coag (PPP) [Time]on 08-07 INR Coag (PPP) [Relative time] 1.0 {INR} 0.9 - 1.1 [facility] Interpretation and review of laboratory results Normal [facility] INR Coag (PPP) [Relative time] 1.0 Normal 0.9-1.1 [facility] Comment on above: Performed By: #### 5 902-2 #### MIK FREITAS ([id number]) [facility] ([facility]) [address] [place] [address] Protime-INRon 08-07-2023 PT Coag (PPP) [Time] 11.1 s [facility] CBC AUTO DIFFon 08-08-2022 BASO # 0.0 103/ul Normal 0.0-0.1 [facility] Comment on above: Performed By: #### C BC #### [facility] [address] [place] [address] Dr. Enrique Parkinson Basophils/100 WBC (Bld) 0.6 % Normal 0.2-2.0 [facility] Comment on above: Performed By: #### C BC #### [facility] [address] [place] [address] Dr. Enrique Parkinson EO # 0.1 103/ul Normal 0.0-0.7 [facility] Comment on above: Performed By: #### C BC #### [facility] [address] [place] [address] Dr. Enrique Parkinson Eosinophils/100 WBC (Bld) 0.9 % Normal 0.9-7.0 [facility] Comment on above: Performed By: #### C BC #### [facility] [address] [place] [address] Dr. Enrique Parkinson Erythrocyte distribution width (RBC) [Ratio] 12.9 % Normal 11.0-15.0 [facility] Comment on above: Performed By: #### C BC #### [facility] [address] [place] [address] Dr. Enrique Parkinson Hematocrit (Bld) [Volume fraction] 41.5 % Normal 36.0-48.0 [facility] Comment on above: Performed By: #### C BC #### [facility] [address] [place] [address] Dr. Enrique Parkinson Hemoglobin (Bld) [Mass/Vol] 14.3 g/dL Normal 12.0-16.0 [facility] Comment on above: Performed By: #### C BC #### [facility] [address] [place] [address] Dr. Enrique Parkinson IG # 0.02 10e3/ul Normal 0.00-0.03 [facility] Comment on above: Performed By: #### C BC #### [facility] [address] [place] [address] Dr. Enrique Parkinson IG % 0.3 % Normal 0.0-0.5 [facility] Comment on above: Performed By: #### C BC #### [facility] [address] [place] [address] Dr. Enrique Parkinson LYMPH # 1.8 103/ul Normal 1.2-3.8 [facility] Comment on above: Performed By: #### C BC #### [facility] [address] [place] [address] Dr. Enrique Parkinson Lymphocytes/100 WBC (Bld) 25.9 % Normal 20.5-60.0 [facility] Comment on above: Performed By: #### C BC #### [facility] [address] [place] [address] Dr. Enrique Parkinson MANUAL DIFF REQ NO Normal [facility] Comment on above: Performed By: #### C BC #### [facility] [address] [place] [address] Dr. Enrique Parkinson MCH (RBC) [Entitic mass] 30.2 pg Normal 26.7-34.0 [facility] Comment on above: Performed By: #### C BC #### [facility] [address] [place] [address] Dr. Enrique aPrkinson MCHC (RBC) [Mass/Vol] 34.5 g/dL Normal 29.9-35.2 [facility] Comment on above: Performed By: #### C BC #### [facility] [address] [place] [address] Dr. Enrique Parkinson MCV (RBC) [Entitic vol] 87.6 fL Normal 81.0-99.0 [facility] Comment on above: Performed By: #### C BC #### [facility] [address] [place] [address] Dr. Enrique Parkinson MONO # 0.4 103/ul Normal 0.3-0.8 [facility] Comment on above: Performed By: #### C BC #### [facility] [address] [place] [address] Dr. Enrique Parkinson Monocytes/100 WBC (Bld) 5.1 % Normal 1.7-12.0 [facility] Comment on above: Performed By: #### C BC #### [facility] [address] [place] [address] Dr. Enrique Parkinson NEUT # 4.6 103/ul Normal 1.4-6.5 [facility] Comment on above: Performed By: #### C BC #### [facility] [address] [place] [address] Dr. Enrique Parkinson Neutrophils/100 WBC (Bld) 67.2 % Normal 43.0-75.0 [facility] Comment on above: Performed By: #### C BC #### [facility] [address] [place] [address] Dr. Enrique Parkinson Platelet mean volume (Bld) [Entitic vol] 9.2 fL Critically low 9.5-13.5 [facility] Comment on above: Performed By: #### C BC #### [facility] [address] [place] [address] Dr. Enrique Parkinson PLT 246 103/ul Normal 150-450 [facility] Comment on above: Performed By: #### C BC #### [facility] [address] [place] [address] Dr. Enrique Parkinson RBC 4.74 106/ul Normal 4.20-5.40 [facility] Comment on above: Performed By: #### C BC #### [facility] [address] [place] [address] Dr. Enrique Parkinson WBC 6.9 103/ul Normal 4.0-11.0 [facility] Comment on above: Performed By: #### C BC #### [facility] [address] [place] [address] Dr. Enrique Parkinson FREE T3on 08-08-2022 FREE T3 2.43 pg/mlL Normal 2.18-3.98 [facility] Comment on above: Performed By: #### T 4, TSH, LIPID, CMP, FT3 #### [facility] [address] [place] [address] Dr. Enrique Parkinson GLYCOHEMOGLOBIN A1Con 2022 ADA RECOMMENDATION SEE BELOW Normal [facility] Comment on above: Result Comment: ADA RECOMMENDED LIMIT 4.0 - 6.0 ADA THERAPEUTIC TARGET < 7.0 ACTION SUGGESTED > 7.0 Performed By: #### A 1C #### [facility] [address] [address] [address] Enrique Parkinson Glucose [Mass/Vol] 114 mg/dL Normal [facility] Comment on above: Performed By: #### A 1C #### [facility] [address] [address] [address] Enrique Parkinson HbA1c (Bld) [Mass fraction] 5.6 % Normal 4.5-6.2 [facility] Comment on above: Performed By: #### A 1C #### [facility] [address] [place] [address] Dr. Enrique Parkinson LIPID PROFILEon 08-08-2022 CHOL-HDL RATIO NORM SEE BELOW Normal [facility] Comment on above: Result Comment: 3.3 - 4.4 LOW RISK 4.4 - 7.1 AVERAGE RISK 7.1 - 11.0 MODERATE RISK >11.0 HIGH RISK Performed By: #### T 4, TSH, LIPID, CMP, FT3 #### [facility] [address] [address] [address] Enrique Parkinson Cholesterol [Mass/Vol] 241 mg/dL Critically high <=200 [facility] Comment on above: Performed By: #### T 4, TSH, LIPID, CMP, FT3 #### [facility] [address] [address] [address] Enrique Parkinson Cholesterol in HDL [Mass/Vol] 45 mg/dL Normal 40-60 [facility] Comment on above: Performed By: #### T 4, TSH, LIPID, CMP, FT3 #### [facility] [address] [address] [address] Enrique Parkinson Cholesterol in LDL [Mass/Vol] 131.2 mg/dL Normal [facility] Comment on above: Performed By: #### T 4, TSH, LIPID, CMP, FT3 #### [facility] [address] [address] [address] Enrique Parkinson Cholesterol.total/Ch olesterol in HDL [Mass ratio] 5.4 {ratio} Normal [facility] Comment on above: Performed By: #### T 4, TSH, LIPID, CMP, FT3 #### [facility] [address] [address] [address] Enrique Parkinson HDL NORMAL > or = 60 mg/dl - LO W CARDIOVASCULAR RISK <40 mg/dl - HIGH CARDIOVASCULAR RISK Normal [facility] Comment on above: Performed By: #### T 4, TSH, LIPID, CMP, FT3 #### [facility] [address] [address] [address] Enrique Parkinson LDL CALC NORMAL SEE BELOW Normal [facility] Comment on above: Result Comment: <100 mg/dl OPTIMAL 100 - 129 mg/dl NEAR OR ABOVE OPTIMAL 130 - 159 mg/dl BORDERLINE HIGH 160 - 189 mg/dl HIGH >190 mg/dl VERY HIGH Performed By: #### T 4, TSH, LIPID, CMP, FT3 #### [facility] [address] [address] [address] Enrique Parkinson Triglyceride [Mass/Vol] 324 mg/dL Critically high <=150 [facility] Comment on above: Performed By: #### T 4, TSH, LIPID, CMP, FT3 #### [facility] [address] [place] [address] Dr. Enrique Parkinson VLDL CALC 64.8 mg/dL Normal [facility] Comment on above: Performed By: #### T 4, TSH, LIPID, CMP, FT3 #### [facility] [address] [address] [address] Enrique Parkinson PROF 14(COMP METB)on 023 Albumin [Mass/Vol] 4.1 g/dL Normal 3.4-5.0 [facility] Comment on above: Performed By: #### T 4, TSH, LIPID, CMP, FT3 #### [facility] [address] [address] [address] Enrique Parkinson Albumin/Globulin [Mass ratio] 1.1 {ratio} Normal [facility] Comment on above: Performed By: #### T 4, TSH, LIPID, CMP, FT3 #### [facility] [address] [address] [address] Enrique Parkinson ALP [Catalytic activity/Vol] 83 U/L Normal 46-116 [facility] Comment on above: Performed By: #### T 4, TSH, LIPID, CMP, FT3 #### [facility] [address] [address] [address] Enrique Parkinson ALT [Catalytic activity/Vol] 28 U/L Normal 14-59 [facility] Comment on above: Performed By: #### T 4, TSH, LIPID, CMP, FT3 #### [facility] [address] [place] [address] Dr. Enrique Parkinson Anion gap [Moles/Vol] 12.3 mmol/L Normal [facility] Comment on above: Performed By: #### T 4, TSH, LIPID, CMP, FT3 #### [facility] [address] [place] [address] Dr. Enrique Parkinson AST [Catalytic activity/Vol] 20 U/L Normal 15-37 [facility] Comment on above: Performed By: #### T 4, TSH, LIPID, CMP, FT3 #### [facility] [address] [place] [address] Dr. Enrique Parkinson Bilirubin [Mass/Vol] 0.4 mg/dL Normal 0.2-1.0 [facility] Comment on above: Performed By: #### T 4, TSH, LIPID, CMP, FT3 #### [facility] [address] [place] [address] Dr. Enrique Parkinson Calcium [Mass/Vol] 9.2 mg/dL Normal 8.5-10.1 [facility] Comment on above: Performed By: #### T 4, TSH, LIPID, CMP, FT3 #### [facility] [address] [place] [address] Dr. Enrique Parkinson Chloride [Moles/Vol] 101 mmol/L Normal 98-107 [facility] Comment on above: Performed By: #### T 4, TSH, LIPID, CMP, FT3 #### [facility] [address] [place] [address] Dr. Enrique Parkinson CO2 [Moles/Vol] 29.4 mmol/L Normal 21.0-32.0 [facility] Comment on above: Performed By: #### T 4, TSH, LIPID, CMP, FT3 #### [facility] [address] [address] [address] Enrique Parkinson Creatinine [Mass/Vol] 0.80 mg/dL Normal 0.55-1.02 [facility] Comment on above: Performed By: #### T 4, TSH, LIPID, CMP, FT3 #### [facility] [address] [place] [address] Dr. Enrique Parkinson EGFR-AF ZAMBIAN >60 Normal >=60 [facility] Comment on above: Performed By: #### T 4, TSH, LIPID, CMP, FT3 #### [facility] [address] [place] [address] Dr. Enrique Parkinson EGFR-NON AF ZAMBIAN >60 Normal >=60 [facility] Comment on above: Performed By: #### T 4, TSH, LIPID, CMP, FT3 #### [facility] [address] [place] [address] Dr. Enrique Parkinson Globulin (S) [Mass/Vol] 3.8 g/dL Normal [facility] Comment on above: Performed By: #### T 4, TSH, LIPID, CMP, FT3 #### [facility] [address] [place] [address] Dr. Enrique Parkinson Glucose [Mass/Vol] 111 mg/dL Critically high 74-106 [facility] Comment on above: Performed By: #### T 4, TSH, LIPID, CMP, FT3 #### [facility] [address] [place] [address] Dr. Enrique Parkinson Potassium [Moles/Vol] 3.7 mmol/L Normal 3.5-5.1 [facility] Comment on above: Performed By: #### T 4, TSH, LIPID, CMP, FT3 #### [facility] [address] [place] [address] Dr. Enrique Parkinson Protein [Mass/Vol] 7.9 g/dL Normal 6.4-8.2 [facility] Comment on above: Performed By: #### T 4, TSH, LIPID, CMP, FT3 #### [facility] [address] [place] [address] Dr. Enrique Parkinson Sodium [Moles/Vol] 139 mmol/L Normal 136-[address] [facility] Comment on above: Performed By: #### T 4, TSH, LIPID, CMP, FT3 #### [facility] [address] [place] [address] Dr. Enrique Parkinson Urea nitrogen [Mass/Vol] 15.0 mg/dL Normal 7.0-18.0 [facility] Comment on above: Performed By: #### T 4, TSH, LIPID, CMP, FT3 #### [facility] [address] [place] [address] Dr. Enrique Parkinson Urea nitrogen/Creatinine [Mass ratio] 18.8 mg/mg Normal [facility] Comment on above: Performed By: #### T 4, TSH, LIPID, CMP, FT3 #### [facility] [address] [place] [address] Dr. Enrique Parkinson T4on 08-08-2022 T4 [Mass/Vol] 10.30 ug/dL Normal 4.80-13.90 [facility] Comment on above: Performed By: #### T 4, TSH, LIPID, CMP, FT3 #### [facility] [address] [place] [address] Dr. Enrique Parkinson TSHon 08-08-2022 TSH 0.847 uIU/mL Normal 0.358-3.740 [facility] Comment on above: Performed By: #### T 4, TSH, LIPID, CMP, FT3 #### [facility] [address] [place] [address] Dr. Enrique Parkinson VITAMIN D 25 OHon 08-08-2022 VIT D 25-OH 35.8 ng/mL Normal [facility] Comment on above: Performed By: #### V ITAD #### [facility] [address] [place] [address] Dr. Enrique Parkinson VIT D RANGES SEE BELOW Normal [facility] Comment on above: Result Comment: <20 ng/mL Vit D deficient 20 - <30 ng/mL Vit D insufficient 30 - 100 ng/mL Vit D sufficient >100 ng/mL Potential Toxicity Performed By: #### V ITAD #### [facility] [address] [place] [address] Dr. Enrique Parkinson [facility]15 SARS-CoV-2 (COVID-19) RNA RENATO+probe Ql (Unsp [...] for this test is supported by the [place] of Health and Human Service's (HHS's) declaration [...] VDTBH #### [facility] [address] [place] [address] Dr. Enrique Parkinson SYMPTOMATIC COVID-19 ANTIGEN on 01-04-2022 EUA Statement SEE BELOW Normal [facility] Comment on above: Result Comment: [...] VDAGS #### [facility] [address] [place] [address] Dr. Enrique Parkinson SARS-CoV-2 (COVID-19) RNA RENATO+probe Ql (Unsp spec) Negative Normal NEGATIVE [facility] Comment on above: Performed By: #### C VDAGS #### [facility] [address] [place], [place] [id number] Dr. Enrique Parkinson PAP ACOG PANEL 2: 30 to 65on 11-19-2021 . . Normal [facility] Comment on above: Result Comment: Perf ormed at: WB Performed By: #### C VDAGS #### [facility] [address] [place] [address] Dr. Enrique Parkinson Age Gdln ACOG Testing 30-65 Normal [facility] Comment on above: Performed By: #### C VDAGS #### [facility] [address] [place] [address] Dr. Enrique Parkinson DIAGNOSIS: Comment Normal [facility] Comment on above: Result Comment: NEGA TIVE FOR INTRAEPITHELIAL LESION OR MALIGNANCY. Performed at: WB Performed By: #### C VDAGS #### [facility] [address] [place] [address] Dr. Enrique Parkinson HPV Aptima Negative Normal Negative [facility] Comment on above: Result Comment: This nucleic acid amplification test detects fourteen high-risk HPV types (16,18,31,33,35,39,45,51,52,56,58,59,66,68) without differentiation. Performed at: =G Performed By: #### C VDAGS #### [facility] [address] [place] [address] Dr. Enrique Parkinson Methodology: Comment Normal [facility] Comment on above: Result Comment: This liquid based ThinPrep(R) pap test was screened with the use of an image guided system. Performed at: WB Performed By: #### C VDAGS #### [facility] [address] [place] [address] Dr. Enrique Parkinson Note: Comment [facility] Comment on above: Result Comment: The Pap [...] #### [facility] [address] [address] [address] Enrique Parkinson Performed by: Comment Normal [facility] Comment on above: Result Comment: Hipolito Rosenberg, Case Planner (ASCP) Performed at: WB Performed By: #### C VDAGS #### [facility] [address] [address] [address] Enrique Parkinson Specimen adequacy: Comment Normal [facility] Comment on above: Result Comment: Sati sfactory for evaluation. Endocervical and/or squamous metaplastic cells (endocervical component) are present. Performed at: WB Performed By: #### C VDAGS #### [facility] [id number] Enrique Parkinson Vital Signs Date Time Vital Sign Value Performing Clinician Facility 08-12-2024 13:18-0500 Body weight 77.2 kg Doris Suarez MD Work Phone: [facility] 08-12-2024 13:18-0500 Diastolic blood pressure 83 mm[Hg] Doris Suarez MD Work Phone: [facility] 08-12-2024 13:18-0500 Heart rate 83 /min Doris Suarez MD Work Phone: [facility] 08-12-2024 13:18-0500 SaO2% (BldA) [Mass fraction] 100 % Doris Suarez MD Work Phone: [facility] 08-12-2024 13:18-0500 Systolic blood pressure 123 mm[Hg] Doris Suarez MD Work Phone: [facility] 08-07-2023 10:27-0500 Diastolic blood pressure 94 mm[Hg] Aruba Dennison DO Work Phone: [facility] 08-07-2023 10:27-0500 Heart rate 77 /min Aruba Dennison DO Work Phone: [facility] 08-07-2023 10:27-0500 SaO2% (BldA) [Mass fraction] 98 % Aruba Dennison DO Work Phone: [facility] 08-07-2023 10:27-0500 Systolic blood pressure 140 mm[Hg] Aruba Dennison DO Work Phone: [facility] 08-07-2023 08:01-0500 Body height 167.6 cm Aruba Dennison DO Work Phone: [facility] 08-07-2023 08:01-0500 Body mass index (BMI) [Ratio] 29.05 kg/m2 Aruba Dennison DO Work Phone: [facility] 08-07-2023 08:01-0500 Body temperature 98.1 [degF] Aruba Dennison DO Work Phone: [facility] 08-07-2023 08:01-0500 Body weight 81.65 kg Aruba Dennison DO Work Phone: [facility] 08-07-2023 08:01-0500 Respiratory rate 16 /min Aruba Dennison DO Work Phone: [facility] 12-14-2022 14:45-0400 Body height 167.64 cm Mirta Chacko Other [employer] Other 12-14-2022 14:45-0400 Body mass index (BMI) [Ratio] 30.18 kg/m2 Mirta Chacko Other [employer] Other 12-14-2022 14:45-0400 Body temperature 97.8 [degF] Mirta Chacko Other [employer] Other 12-14-2022 14:45-0400 Body weight 84.82 kg Mirta Chacko Other [employer] Other 12-14-2022 14:45-0400 Respiratory rate 18 /min Mirta Chacko Other [employer] Other 12-14-2022 14:45-0400 SaO2% (BldA) [Mass fraction] 98 % Mirta Chacko Other [employer] Other Encounters Encounter Date Encounter Type Care Provider Facility Start: 08-14-2024 End: 08-19-2024 Telephone encounter Doris Suarez MD Work Phone: Pulmonary Medicine Comment on above: Image request Start: 08-12-2024 End: 08-12-2024 ambulatory DORIS SUAREZ Facility:[facility] Start: 08-12-2024 End: 08-12-2024 Patient encounter procedure Doris Suarez MD Work Phone: Pulmonary Medicine Comment on above: Severe persistent as thma without complication (Primary Dx); Shortness of breath Start: 06-18-2024 End: 06-18-2024 ambulatory Kana Montilla Facility:[facility] Start: 06-09-2024 End: 06-09-2024 ambulatory BREANN TALLEY Not Available Start: 05-22-2024 End: 05-23-2024 Orders Only Not In System Ref Prov [facility] Start: 04-16-2024 End: 04-16-2024 ambulatory DAVE ORTEGA Not Available Start: 08-07-2023 End: 08-07-2023 Emergency department patient visit Raj Dennison DO Work Phone: [facility] Comment on above: Fall, initial encoun ter (Primary Dx); Closed head injury, initial encounter Start: 12-14-2022 End: 12-14-2022 ambulatory Mirta Chacko Other [place] Other Start: 12-14-2022 Office outpatient ne w 30 minutes Mirta Chacko [facility] Start: 08-09-2022 Encounter for genera l adult medical examination without abnormal findings DR RAKESH LUNDBERG [facility] Start: 08-08-2022 End: 08-09-[address] [...] Start: 08-07-2026 Diabetes Screening Diabetes Screenin g [facility] Start: 11-10-2024 End: 11-10-2024 Patient encounter procedure 11/10/2024 2:00 PM EDT Office Visit Pulmonary Medicine [address] [facility] [place], [place] [id number] Jazmyne Liu APRN.RECOVERY MANAGER [address] [place] [address] Return in about 3 months (around 11/10/2024). Pulmonary Medicine Comment on above: Return in about 3 mo nths (around 11/10/2024). Start: 11-10-2024 End: 11-10-2024 ambulatory Pulmonary Lab Comment on above: Severe persistent as thma without complication [J45.50] Start: 03-16-2024 Covid-19 Vaccine ( season) Covid-19 Vaccine ( season) [facility] Start: 03-16-2024 Influenza vaccination [facility] Start: 03-16-2023 Influenza vaccination Influenza Vacc ine (#1) [facility] Start: 05-24-2021 COVID-19 Vaccine (3 - Pfizer series) COVID-19 Vaccine (3 - Pfizer series) [facility] Start: 2017 Administration of varicella zoster vaccine Zoster (Shingles) Vaccine (1 of 2) [facility] Start: 2017 Pneumococcal Vaccine : 50+ (1 of 1 - PCV) Pneumococcal Vaccine: 50+ (1 of 1 - PCV) [facility] Start: 2017 Shingrix Vaccine (1 of 2) Zabala grix Vaccine (1 of 2) [facility] Start: 2017 Zoster Vaccines (1 of 2) Zoste r Vaccines (1 of 2) [facility] Start: 01-06-2012 Lipid panel Lipid Screening [facility] Start: 01-06-2012 Screening for malign ant neoplasm of colon [facility] Start: 2007 Screening for malign ant neoplasm of breast [facility] Start: 1989 DTaP/Tdap/Td Vaccine s (1 - Tdap) DTaP/Tdap/Td Vaccines (1 - Tdap) [facility] Start: 01-06-1988 Screening for malign ant neoplasm of cervix [facility] Start: 1986 DTaP,Tdap and Td Vac cines (1 - Tdap) DTaP,Tdap and Td Vaccines (1 - Tdap) [facility] Start: 1986 Hepatitis B Vaccine (1 of 3 - 19+ 3-dose series) Hepatitis B Vaccine (1 of 3 - 19+ 3-dose series) [facility] Start: 1986 Urine microalbumin profile DTaP,Tdap,Td Vaccine (1 - Tdap) [facility] Start: 1985 Adult BMI Screening Adult BMI Screen ing [facility] Start: 1985 Anxiety Screening Anxiety Screening [facility] Start: 1985 Depression Screening Depression Scre ing [facility] Start: 1985 Diabetes mellitus screening Diabetes Screening [facility] Start: 1985 Hepatitis C screening Hepatitis C Sc reening [facility] Start: 1985 HIV screening HIV Screening [facility] Start: 1979 Depression Screening Depression Scre [facility] Start: 1979 Tobacco Screening Tobacco Screening [facility] Start: 01-06-1968 MMR Vaccines (1 of 1 - Standard series) MMR Vaccines (1 of 1 - Standard series) [facility] Start: 1967 Hepatitis B Vaccines (1 of 3 - 3-dose series) Hepatitis B Vaccines (1 of 3 - 3-dose series) [facility] Start: 1967 HIV screening HIV Screening [facility] Start: 1967 Lipid panel Lipid Panel [facility] Start: 1967 Screening for malign ant neoplasm of colon [facility] Start: 1967 Yearly Adult Physical Yearly Adult P hysical [facility] ECG 12 lead ECG 12 lead ECG STAT 08/07/2023 8:[address] Service Area Work Phone: End: 09-12-2025 NITRIC OXIDE, EXHALED NITRIC OXIDE, EXHALED PFT Routine Severe persistent asthma without complication 1 Occurrences starting 08/12/2024 until 09/12/2025 [facility] Work Phone: Comment on above: 1 Occurrences starti ng 08/12/2024 until 09/12/2025 End: 09-12-2025 SPIROMETRY WITH DILATOR IF OBSTRUCTED SPIROMETRY WITH DILATOR IF OBSTRUCTED PFT Routine Severe persistent asthma without complication 1 Occurrences starting 08/12/2024 until 09/12/2025 [facility] Comment on above: 1 Occurrences starti ng 08/12/2024 until 09/12/2025 Payers Date Payer Category Payer Self-pay 2023 Unknown [id number] 2020 [employer] [facility] - Other [facility] [id number] 2020 Unknown [id number] 1967 Unknown [id number] 1967 Unknown [id number] 9.2.59 1967 Unknown [id number] 1967 Unknown [id number] 9.2.59 1967 Unknown [id number] 1967 Unknown [id number] 1967 Unknown [id number] 1967 Unknown [id number] 1959 Self-pay [id number] 1959 Unknown [id number] Unknown [id number] Social History Date Type Detail Facility Unknown if ever smoked [facility] [place] [facility] Other Start: 08-12-2024 Sex [address] [facility] Other Tobacco smoking status ARIS Tobacco smoking consumption unknown [facility] Start: 1965 Sex Assigned At Not on file [facility] Work Phone: Start: 07-28-2023 End: 08-07-2023 Exposure to SARS-CoV-2 (event) Not sure [facility] Work Phone: Start: 05-12-2024 Sex Female (finding) [facility] Start: 08-12-2024 Tobacco smoking status NHIS Never smoked tobacco [facility] Start: 08-12-2024 Tobacco use and exposure Smokeless tobacco non-user [facility] Start: 08-12-2024 History of Social function [facility] National Score (1-100), lower number is lower risk 73 [facility] Clinical Notes 12-14-2022 to 08-19-2024 Telephone Encounter - Mattie Link MA - 08/19/2024 8:51 AM ESTTelephone Encounter - Mattie Link MA - 08/19/2024 8:51 AM ESTTelephone Encounter - Mattie Link MA - 08/14/2024 11:49 AM EST Note Date & Type Note Facility 08-19-2024 Telephone encounter Note Image has been imported into [employer] and is available to view. [facility] 08-19-2024 Miscellaneous Notes Image has been imported into [employer] and is available to view. Faxed image request to [facility] Confirmation received Images from the original note were not included. Doris Suarez MD P Ln Pulm Nurse Could we try to obtain images of CT chest 02/13/2024 from [facility] in [facility]? Thanks documented in this encounter [facility] 08-14-2024 Telephone encounter Note Faxed image request to [facility] Confirmation received [facility] 08-14-2024 Telephone encounter Note Images from the original note were not included. Doris Suarez MD P Ln Pulradha Nurse Could we try to obtain images of CT chest 02/13/2024 from [facility] in [facility]? Thanks [facility] 08-12-2024 Instructions Doris Suarez MD - 08/12/2024 [...] office or send me a message through [employer] if you have any questions. Sincerely, Doris Suarez MD documented in this encounter [facility] 08-12-2024 History and physical note . [facility] [place] - Pul[facility]ology Clinic Initial Visit Note Ms. Dacosta is a 59 year old female who presents to the [facility] [place]. Consultation requested by Rakesh Lundberg MD for [...] getting sick again Evaluated for immunodeficiency by Tail Board Worker at [facility]. On 06/09/2024. Had PFTs. FENO 12ppb. FEV1 [...] personally reviewed by me Data Reviewed from [facility] (in addition to that noted in HPI, and Past histories above): (Data from patient's OSH mychart shown on phone) CBC: last eos 100 (05/2024) IgE: 45 (wnl) PFT: 08/01/2024 Ratio 75% (normal) FEV1 120%, FVC 125% Reported positive bronchodilator response based on FEF 25-75. RV 129% (high) TLC 133% (high) DLCOc 10 3% (normal) CT Chest: 02/13/2024 (OSH, images unavailable) - [facility] in [facility] Lung: Scattered linear densities and calcifications, chronic scarring is favored. Mild dependent atelectasis. No focal parenchymal infiltrates or significant pulmonary nodules. Pleura: No mass, effusion, pneumothorax Lizeth: Small calcified right hilar lymph nodes. Assessment and Plan: Ms. Dacosta is a 59 year old female who presents to the [facility] [place] for evaluation of bronchitis. 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 [facility] [place] [facility] Initial Visit Note Ms. Dacosta is a 59 year old female who presents to the [facility] [place]. Consultation requested by Rakesh Lundberg MD for [...] getting sick again Evaluated for immunodeficiency by Tail Board Worker at [facility]. On 06/09/2024. Had PFTs. FENO 12ppb. FEV1 [...] personally reviewed by me Data Reviewed from [facility] (in addition to that noted in HPI, and Past histories above): (Data from patient's OSH mychart shown on phone) CBC: last eos 100 (05/2024) IgE: 45 (wnl) PFT: 08/01/2024 Ratio 75% (normal) FEV1 120%, FVC 125% Reported positive bronchodilator response based on FEF 25-75. RV 129% (high) TLC 133% (high) DLCOc 10 3% (normal) CT Chest: 02/13/2024 (OSH, images unavailable) - [facility] Lung: Scattered linear densities and calcifications, chronic scarring is favored. Mild dependent atelectasis. No focal parenchymal infiltrates or significant pulmonary nodules. Pleura: No mass, effusion, pneumothorax Lizeth: Small calcified right hilar lymph nodes. Assessment and Plan: Ms. Dacosta is a 59 year old female who presents to the [facility] [place] for evaluation of bronchitis. #Recurrent bronchitis #Asthma [...] oral steroids, ultimately deferred -Should keep her [employer] ii inspector appointment for follow-up testing -I will attempt to obtain images of her outside hospital CT -Follow-up in 3 months with spirometry and nitric oxide before hand Doris Suarez MD Pulmonary and Critical Care Staff [facility] Level 4 documented in this encounter [facility] 08-07-2023 Hospital Discharg e instructions Dimple [place] [...] needed for pain. documented in this encounter [facility] Work Phone: 12-14-2022 Evaluation note Encounter Date [...] resolved. Patient verbalized understanding of treatment plan [employer] Other Evaluation note* Diagnosis Fall, initial encounter- Primary Closed head injury, initial encounter documented in this encounter [facility] Work Phone: Evaluation note* Diagnosis Severe persistent asthma without complication- Primary Shortness of breath documented in this encounter [facility] general Narrative - Reported* Type Description Date Medical History high blood pressure Medical History thyroid disease Surgical History C section Surgical History lobectomy Surgical History wrist surgery Surgical History bowel surgery Hospitalization History see above [employer] Other InstructionsNot on filedocumented in this encounter [facility] Outpatient Procedure (Routine) - Pending Review Specialty Diagnoses / Procedures Referred By Ivon gayle Ref[facility] Diagnoses Severe persistent asthma without complication Procedures SPIROMETRY WITH DILATOR IF OBSTRUCTED BRNCDILAT RSPSE SPMTRY PRE&[place] [address] [place] [address] [facility] [place] [address] [place] [address] Referral ID Status Reason Start Date Expiration Date Visits Requested Visits Authorized [id number] Pending Review Auto-Generat ed Referral 08/12/2024 09/11/2025 1 1 * Outpatient Procedure (Routine) - Pending Review Specialty Diagnoses / Procedures Referred By Ivon gayle Referred To Contact [facility] Diagnoses Severe persistent asthma without complication Procedures NITRIC OXIDE, EXHALED NITRIC [place] [address] [place] [address] [facility] [place] [address] Referral ID Status Reason Start Date Expiration Date Visits Requested Visits Authorized [id number] Pending Review Auto-Generat ed Referral 08/12/2024 09/11/2025 1 1 [facility] Summary Purpose Family History No Family History [...] and content) DATE CREATED AUTHOR 08/14/2022 [facility] DATE CREATED AUTHOR AUTHOR'S ORGANIZ ATION 08/31/2023 [facility] DATE CREATED AUTHOR AUTHOR'S ORGANIZ ATION 04/08/2024 [facility] DATE CREATED AUTHOR AUTHOR'S ORGANIZ ATION 06/12/2024 [facility] EPIC DATE CREATED AUTHOR AUTHOR'S ORGANIZ ATION 06/28/2024 [facility] DATE CREATED AUTHOR AUTHOR'S ORGANIZ ATION 08/21/2024 [facility] REASON FOR VISIT (unrecogniz ed section and content) Reason Comments Fall Hit head and upper b ack; +LOC no thinners Reason Comments Cough Reports getting sick a lot, covid in fall 2019 and fall 2023, then got bronchitis and pneumonia and then bronchitis again. Patient states she was told there is some lung scaring.Seen Allergy in [facility] Reason Comments Image request Scheduled Active and Recently Administ ered Medications (unrecognized section and content) Medication Order 08/05/2023 08/06/2023 08/07/2023 fentaNYL PF (Sublimaze) injection 50 mcg (COMPLETED) 50 mcg, intravenous, Once, On Sun08/07/23 at 0815, For 1 dose 0825 (Given - Provid er: Miya Brattoli, RN) Care Teams (unrecognized sec tion and content) Cam Maker Relationship Specialty Start Date End Date Rakesh Lundberg MD [address] [place] [address] PCP - General 09/06/09 Cam Maker Relationship Specialty Start Date End Date Rakesh Lundberg MD [address] [facility] [place] [address] PCP - General Family Medicine 05/12/24 Cam Maker Relationship Specialty Start Date End Date Rakesh Lundberg MD [address] [place] [address] Referring Family Medicine 08/06/24 Cam Maker Relationship Specialty Start Date End Date Rakesh Lundberg MD [address] [facility] [place] [address] Referring Family Medicine 08/06/24 Source Comments (unrecognize d section and content) In the event this informatio n is protected by the Federal Confidentiality of Alcohol and Drug Abuse Patient Records regulations: The Federal rules restrict any use of the information to criminally investigate or prosecute any alcohol or drug abuse patient.[facility] the event this information is protected by the Federal Confidentiality of Alcohol and Drug Abuse Patient Records regulations: The Federal rules restrict any use of the information to criminally investigate or prosecute any alcohol or drug abuse patient.[facility] FOR RECORDS PERTAINING TO PATIENTS WHO ARE [...] BE BASED ON THE PRIMARY CLINICAL RECORDS. [facility]. provides no warranty or guarantee of the accuracy or completeness of information in this document.
[2024-08-31] MEDS: 0.9 % SODIUM CHLORIDE 1,000 ML 100 ML IV ×3 (03:37→23:18)
[2024-08-31] MEDS: ACETAMINOPHEN 325 MG TABLET 650 MG PO ×3 (03:43→17:31)
[2024-08-31 04:17] LABS: Influenza Virus A Antigen Negative; Influenza Virus B Antigen Negative; Internal Control Within Normal Limits; SARS-CoV-2 Ag POSITIVE (NEGATIVE)
[2024-08-31 06:45] LABS: Basophils Percent Auto 0.2 % (0.2-2.0); Eosinophils Percent Auto 0.2 % (0.9-7.0); Hematocrit 39.4 % (36.0-48.0); Hemoglobin 13.4 g/dL (12.0-16.0); Immature Granulocytes Abs Auto 0.03 10^3/uL (0.00-0.03); Immature Granulocytes Pct Auto 0.3 % (0.0-0.5); Lymphocytes Absolute Auto 0.3 10^3/uL (1.2-3.8); Lymphocytes Percent Auto 3.2 % (20.5-60.0); Mean Corpuscular Hemoglobin 30.4 pg (26.7-34.0); Mean Corpuscular Volume 89.3 fL (81.0-99.0); Mean Platelet Volume 9.1 fL (9.5-13.5); Monocytes Absolute Auto 0.2 10^3/uL (0.3-0.8); Monocytes Percent Auto 2.2 % (1.7-12.0); Neutrophils Absolute Auto 8.9 10^3/uL (1.4-6.5); Neutrophils Percent Auto 93.9 % (43.0-75.0); Platelet Count 168 10^3/uL (150-450); Red Blood Count 4.41 10^6/uL (4.20-5.40); Red Cell Distribution Width 13.1 % (11.0-15.0); White Blood Count 9.4 10^3/uL (4.0-11.0)
[2024-08-31 07:28] LABS: Alanine Aminotransferase 281 U/L (14-59); Albumin Level 3.2 g/dL (3.4-5.0); Alkaline Phosphatase 127 U/L (46-116); Anion Gap 14.8; Aspartate Amino Transferase 293 U/L (15-37); BUN Creatinine Ratio 17.5; Bilirubin Total 0.7 mg/dL (0.2-1.0); Calcium 8.5 mg/dL (8.5-10.1); Carbon Dioxide 24.8 mmol/L (21.0-32.0); Chloride 103 mmol/L (98-107); Estimated GFR (African America >60 (>=60 mL/min/1.73m^2); Estimated GFR (Non-African Ame >60 (>=60 mL/min/1.73m^2); Globulin 3.2 g/dL; Glucose 113 mg/dL (74-106); Magnesium 1.5 mg/dL (1.8-2.4); Potassium 3.6 mmol/L (3.5-5.1); Sodium 139 mmol/L (136-145); Total Protein 6.4 g/dL (6.4-8.2)
[2024-08-31] MEDS: DEXAMETHASONE SOD PHOS 4 MG/ML VIAL IV (08:25)
[2024-08-31] MEDS: REMDESIVIR 200 MG in 0.9 % SODIUM CHLORIDE 250 ML 250 MG IV (13:46)
--- NOTE | 2024-08-31 14:42 | PM.HP ---
HPI H&P: HPI History of Present Illness Chief complaint: INTRACTABLE NAUSEA Narrative: 59 y/o female to ER with nausea, vomiting, and abdominal pain. Developed pain in epigastric region and up into chest. Severe nausea and emesis. To ER and afebrile. WBC normal. Lipase and CE normal. LFTS elevated and covid-19 positive. Admitted for continued symptoms. Nausea improved and no furhter emesis. Decreased appetite and trying to drink well. Opioid HPI Opioid Management Most Recent Pain and Opioid Data: Last Pain Scale 3 08/31/24 08:00 08/31/24 Last Pain Assessment 08/31/24 14:00 Last ED Pain Assessment 08/30/24 21:11 Last MAR Pain Assessment 08/31/24 05:00 Last ORT Total Score 3 08/31/24 03:04 08/31/24 Last ORT Risk Category Low Risk 08/31/24 03:04 08/31/24 Review of Systems ROS Constitutional Reports: fever and fatigue; Denies: chills Cardiovascular Denies: chest pain, palpitations or edema Respiratory Denies: shortness of breath, cough or wheezing Gastrointestinal Reports: abdominal pain, nausea and vomiting; Denies: diarrhea Genitourinary Denies: painful urination [facility] Medical History (Updated 08/31/24 @ 10:21 by Arsen Wray MD) Colitis ?K52.9 - Noninfective gastroenteritis and colitis, unspecified (ICD-10) Colitis, acute ?K52.9 - Noninfective gastroenteritis and colitis, unspecified (ICD-10) Intractable nausea ?R11.0 - Nausea (ICD-10) Sleep apnea ?G47.30 - Sleep apnea, unspecified (ICD-10) Hypothyroidism ?E03.9 - Hypothyroidism, unspecified (ICD-10) Surgical History History of lobectomy of lung ?Z90.2 - Acquired absence of lung [part of] (ICD-10) Family History Other Family history of CHF (congestive heart failure) Family history of cancer Family history of diabetes mellitus Family history of hypertension Family history of myocardial infarction Social History Within the past year, how often did you have a drink containing alcohol: monthly or less Smoking status: Never smoker Non-prescribed substance use: denies use Are you now , , , , never or living with a partner: In a typical week, how many times do you talk on the telephone with family, friends, or neighbors: 3 or more times per week How often do you get together with friends or relatives: 3 or more times per week Little interest or pleasure in doing things: not at all Feeling down, depressed, or hopeless: not at all Feel stressed/tense/nervous/anxious/difficulty sleeping: not at all Do you think of yourself as: straight/heterosexual Gender Identity: female Meds Home Medications and Allergies Home Medications ?Medication ?Instructions ?Recorded ?Confirmed ?Type fluoxetine 10 mg capsule 10 mg PO DAILY 05/11/24 08/31/24 History levothyroxine 125 mcg tablet 125 mcg PO DAILY 05/11/24 08/31/24 History lisinopril 10 mg tablet 10 mg PO DAILY 05/11/24 08/31/24 History modafinil 200 mg tablet 200 mg PO DAILY 05/11/24 08/31/24 History Allergies Allergy/AdvReac Type Severity Reaction Status Date / Time penicillin G Allergy Severe Hives Verified 08/30/24 20:58 Exam Constitutional Vital Signs, click to edit/add: Last Vital Signs Temp 98.8 F 08/31/24 11:48 Pulse 83 08/31/24 14:06 Resp 20 08/31/24 11:48 BP 101/63 08/31/24 11:48 Pulse Ox 90 L 08/31/24 11:55 O2 Del Method Room Air 08/31/24 11:55 O2 Flow Rate 1.5 08/31/24 11:48 Documenting provider has reviewed patient's vital signs: yes Common normals: no apparent distress, oriented x3 and alert HENMT Common normals: normocephalic Eye Common normals: PERRL and EOMs intact bilaterally Respiratory Common normals: normal respiratory effort and clear to auscultation bilaterally Cardio Common normals: regular rate, regular rhythm, no gallops, no murmurs and no rub GI Common normals: Normal to inspection, nondistended, normoactive bowel sounds present Palpation: tender (Mild diffuse tenderness) Extremity Common normals: no pedal edema Results Labs Labs: Short CBC 08/30/24 08/31/24 Range/Units 21:02 06:35 WBC 10.8 9.4 (4.0-11.0) 10^3/uL Hgb 15.2 13.4 (12.0-16.0) g/dL Hct 44.7 39.4 (36.0-48.0) % Plt Count 254 168 (150-450) 10^3/uL BMP 08/30/24 08/31/24 21:02 06:35 Sodium 139 139 Potassium 3.8 3.6 Chloride 103 103 Carbon Dioxide 24.9 24.8 BUN 17.0 14.0 Creatinine 0.98 0.80 Glucose 102 113 H Calcium 9.3 8.5 Liver Function 08/30/24 08/31/24 Range/Units 21:02 06:35 Total Bilirubin 0.8 0.7 (0.2-1.0) mg/dL AST 169 H 293 H (15-37) U/L ALT 157 H 281 H (14-59) U/L Alkaline Phosphatase 113 127 H (46-116) U/L Albumin 3.9 3.2 L (3.4-5.0) g/dL Assessment and Plan Assessment and Plan (1) Nausea & vomiting: (2) Transaminitis: (3) COVID: (4) HTN (hypertension): Qualifiers: Hypertension type: primary hypertension Qualified Code(s): I10 - Essential (primary) hypertension Plan Admitted with severe GI symptoms possibly related to covid. Start decadron and remdesivir. LFTs elevated and check US RUQ. Increase liquid intake and slowly advance diet as tolerated.
[2024-08-31] MEDS: ONDANSETRON PF 4 MG/2 ML VIAL IV (17:31)
[2024-08-31] MEDS: LOPERAMIDE HCL 2 MG CAPSULE PO (23:13)
[2024-08-31] MEDS: PROCHLORPERAZINE 10 MG/2 ML VIAL IV (23:13)
[2024-08-31] MEDS: DICYCLOMINE HCL 10 MG CAPSULE 20 MG PO (23:28)
[2024-09-01] VITALS (22 sets, daily range): BP systolic 99–124; BP diastolic 68–77; PULSE 61–92; TEMP 36.6–37.3; O2SAT 86–97
[2024-09-01] MEDS: PROCHLORPERAZINE 10 MG/2 ML VIAL IV ×4 (05:07→20:41)
[2024-09-01 05:40] LABS: Basophils Percent Auto 0.1 % (0.2-2.0); Eosinophils Percent Auto 0.3 % (0.9-7.0); Hematocrit 35.1 % (36.0-48.0); Hemoglobin 11.7 g/dL (12.0-16.0); Immature Granulocytes Abs Auto 0.02 10^3/uL (0.00-0.03); Immature Granulocytes Pct Auto 0.3 % (0.0-0.5); Lymphocytes Absolute Auto 1.1 10^3/uL (1.2-3.8); Lymphocytes Percent Auto 14.7 % (20.5-60.0); Mean Corpuscular HGB Conc 33.3 g/dL (29.9-35.2); Mean Corpuscular Hemoglobin 30.5 pg (26.7-34.0); Mean Corpuscular Volume 91.4 fL (81.0-99.0); Mean Platelet Volume 9.7 fL (9.5-13.5); Monocytes Absolute Auto 0.4 10^3/uL (0.3-0.8); Monocytes Percent Auto 5.7 % (1.7-12.0); Neutrophils Percent Auto 78.9 % (43.0-75.0); Platelet Count 165 10^3/uL (150-450); Red Blood Count 3.84 10^6/uL (4.20-5.40); Red Cell Distribution Width 13.4 % (11.0-15.0); White Blood Count 7.6 10^3/uL (4.0-11.0)
[2024-09-01] MEDS: LEVOTHYROXINE SODIUM 125 MCG TABLET PO (05:49)
[2024-09-01 06:00] LABS: Alanine Aminotransferase 178 U/L (14-59); Albumin Globulin Ratio 0.9; Albumin Level 2.7 g/dL (3.4-5.0); Alkaline Phosphatase 111 U/L (46-116); Anion Gap 11.6; Aspartate Amino Transferase 89 U/L (15-37); BUN Creatinine Ratio 21.9; Bilirubin Total 0.3 mg/dL (0.2-1.0); Calcium 7.8 mg/dL (8.5-10.1); Carbon Dioxide 24.6 mmol/L (21.0-32.0); Chloride 108 mmol/L (98-107); Estimated GFR (African America >60 (>=60 mL/min/1.73m^2); Estimated GFR (Non-African Ame >60 (>=60 mL/min/1.73m^2); Globulin 2.9 g/dL; Glucose 97 mg/dL (74-106); Magnesium 1.6 mg/dL (1.8-2.4); Potassium 3.2 mmol/L (3.5-5.1); Sodium 141 mmol/L (136-145); Total Protein 5.6 g/dL (6.4-8.2)
--- NOTE | 2024-09-01 07:50 | P.PN_ITS ---
Progress Note: Subjective Subjective Interval history: Patient feels a little better today, less much less diarrhea, abdominal pain resolved currently, breathing feels improved still on supplemental oxygen Exam Constitutional Vital Signs, click to edit/add: Last Vital Signs Temp 98.6 F 09/01/24 05:00 Pulse 66 09/01/24 06:02 Resp 16 09/01/24 05:00 BP 99/69 09/01/24 05:00 Pulse Ox 92 L 09/01/24 05:00 O2 Del Method Nasal Cannula 09/01/24 05:00 O2 Flow Rate 0.5 09/01/24 05:00 Documenting provider has reviewed patient's vital signs: yes Common normals: apparent distress (Very fatigued) Chest Common normals: inspection of chest normal Respiratory Common normals: normal respiratory effort and no use of accessory muscles Auscultation: rhonchi (Minimal scattered) Cardio Common normals: regular rate and regular rhythm GI Common normals: Normal to inspection, nondistended, normoactive bowel sounds present, soft to palpation and non-tender Extremity Common normals: normal to inspection Progress Note: Objective Labs Labs: Short CBC 09/01/24 Range/Units 05:05 WBC 7.6 (4.0-11.0) 10^3/uL Hgb 11.7 L (12.0-16.0) g/dL Hct 35.1 L (36.0-48.0) % Plt Count 165 (150-450) 10^3/uL BMP 09/01/24 05:05 Sodium 141 Potassium 3.2 L Chloride 108 H Carbon Dioxide 24.6 BUN 14.0 Creatinine 0.64 Glucose 97 Calcium 7.8 L Liver Function 09/01/24 Range/Units 05:05 Total Bilirubin 0.3 (0.2-1.0) mg/dL AST 89 H (15-37) U/L ALT 178 H (14-59) U/L Alkaline Phosphatase 111 (46-116) U/L Albumin 2.7 L (3.4-5.0) g/dL Progress Note: A&P Assessment and Plan (1) Nausea & vomiting: (2) Transaminitis: (3) COVID: (4) HTN (hypertension): Qualifiers: Hypertension type: primary hypertension Qualified Code(s): I10 - Essential (primary) hypertension Plan Fever, sinus tachycardia nausea & vomiting: Leading to dehydration, maintain current fluid resuscitation, if eating well later today possible discharge Transaminitis:-Check an ultrasound later today, if ultrasound normal possible d ischarge Acute hypoxia with O2 sat of 85% due to COVID: Currently outside the window of treatment with Paxlovid, respiratory status is improving, patient no longer febrile, try to wean supplemental oxygen HTN (hypertension): Maintain current medication Sinus tachycardia-improved with hydration Iron deficiency anemia-monitor daily Hypokalemia-supplement Hypomagnesemia-supplement Hypothyroidism-recently checked levels were normal, maintain outpatient treatment Depression-continue with home medications Admission status: Patient currently in the observational time period, if unable to improve and wean off of supplemental oxygen or patient is unable to eat, medically necessary treatment will span 2 midnights and will change patient to inpatient status at that time
[2024-09-01] MEDS: MAGNESIUM OXIDE 400 MG TABLET PO ×2 (08:09→20:39)
[2024-09-01] MEDS: MODAFINIL 100 MG TABLET 200 MG PO (08:09)
[2024-09-01] MEDS: FLUOXETINE HCL 10 MG CAPSULE PO (08:09)
[2024-09-01] MEDS: REMDESIVIR 100 MG in 0.9 % SODIUM CHLORIDE 100 ML 200 MG IV (08:09)
[2024-09-01] MEDS: POTASSIUM CHLORIDE 10 MEQ ER TABLET PO ×2 (08:10→20:39)
[2024-09-01] MEDS: DEXAMETHASONE SOD PHOS 4 MG/ML VIAL IV (08:10)
[2024-09-01] MEDS: 0.9 % SODIUM CHLORIDE 1,000 ML 100 ML IV ×2 (08:10→19:40)
[2024-09-01] MEDS: DICYCLOMINE HCL 10 MG CAPSULE 20 MG PO ×2 (08:10→20:39)
[2024-09-01 09:14] LABS: Internal Control Within Normal Limits; Occult Blood Positive
[2024-09-01 10:37] LABS: C. Difficile PCR NEGATIVE
[2024-09-01] MEDS: PANTOPRAZOLE SODIUM 40 MG VIAL IV (11:11)
--- NOTE | 2024-09-01 11:36 | US_ITS ---
The [address] [address] Patient Name: PRAVEENA DACOSTA MRN: [id number] date: 1965 Sex: F Assigned Patient Location: [place] Current Patient Location: [place] Accession/Order Number: [id number] Exam Date: 09/01/2024 08:00 Report Date: 09/01/2024 12:15 At the request of: BRANDI WIGGINS Procedure: US right upper quadrant EXAM: US right upper quadrant HISTORY: Elevated LFTs COMPARISON: CT abdomen/pelvis 08/30/2024. TECHNIQUE: Limited ultrasound of the right upper quadrant included grayscale and color Doppler. FINDINGS: PANCREAS: The visualized pancreas appears homogeneous, as seen. LIVER: Right hepatic lobe measures 17.0 cm. Liver contour appears smooth. No focal liver parenchymal mass identified. No intrahepatic biliary ductal dilatation is seen. Main portal vein demonstrates color Doppler signal with hepatopedal flow. Peak systolic velocity is 31.8 cm/s. CBD: The imaged extrahepatic common bile duct measures 3.6 mm. GALLBLADDER: The gallbladder is partially fluid distended with numerous dependent mobile echogenic stones. Gallbladder wall is mildly thickened at 5 mm. No pericholecystic edema. Sonographic Mosqueda's sign is reported as negative. RIGHT KIDNEY: Right kidney measures 12.5 x 5.5 x 5.2 cm. No cortical mass, shadowing stone, or hydronephrosis identified. US/US right upper quadrant IMPRESSION: 1. Cholelithiasis with mild gallbladder wall thickening. This could be related to partially contracted appearance of the gallbladder. If there is concern for cholecystitis, nuclear medicine HIDA scan could be considered. 2. No biliary ductal dilatation. Electronically authenticated by: HANK SHARPE Date: 09/01/2024 12:15
--- NOTE | 2024-09-01 13:03 | XR_ITS ---
The [place] [id number] Patient Name: PRAVEENA DACOSTA MRN: [id number] date: 1965 Sex: F Assigned Patient Location: [place] Current Patient Location: Accession/Order Number: [id number] Exam Date: 09/01/2024 13:25 Report Date: 09/01/2024 15:11 At the request of: RAKESH VERNON Procedure: XR chest 1V EXAM: XR chest 1V HISTORY: acute hypoxia, COVID COMPARISON: CTA chest 08/30/2024. TECHNIQUE: AP chest x-ray. FINDINGS: Cardiac size appears within normal limits. Trachea is midline. No mediastinal widening. Anastomotic suture material in the left midlung is noted. There is some streak like bibasilar opacities. No pneumothorax. No definite pleural effusion is seen. XR/XR chest 1V IMPRESSION: Mild bibasilar atelectasis is seen. Electronically authenticated by: HANK SHARPE Date: 09/01/2024 15:11
[2024-09-01] MEDS: AZITHROMYCIN 500 MG in 0.9 % SODIUM CHLORIDE 250 ML 250 MG IV (14:32)
[2024-09-01] MEDS: LOPERAMIDE HCL 2 MG CAPSULE PO (20:39)
[2024-09-01] MEDS: FAMOTIDINE 20 MG TABLET 40 MG PO (20:39)
[2024-09-01] MEDS: CETIRIZINE HCL 10 MG TABLET 20 MG PO (23:12)
[2024-09-02] VITALS: BP 112/72; PULSE 61; TEMP 36.8; O2SAT 95
[2024-09-02 01:46] VITALS: PULSE 63
[2024-09-02] MEDS: PROCHLORPERAZINE 10 MG/2 ML VIAL IV ×2 (03:54→08:48)
[2024-09-02 04:00] VITALS: BP 109/71; PULSE 59; PULSE 63; TEMP 36.5; O2SAT 95
[2024-09-02] MEDS: LEVOTHYROXINE SODIUM 125 MCG TABLET PO (05:30)
[2024-09-02] MEDS: 0.9 % SODIUM CHLORIDE 1,000 ML 100 ML IV (05:36)
[2024-09-02 05:57] VITALS: PULSE 66
[2024-09-02 05:59] LABS: Basophils Percent Auto 0.3 % (0.2-2.0); Eosinophils Percent Auto 0.3 % (0.9-7.0); Hematocrit 33.3 % (36.0-48.0); Immature Granulocytes Abs Auto 0.02 10^3/uL (0.00-0.03); Immature Granulocytes Pct Auto 0.3 % (0.0-0.5); Lymphocytes Absolute Auto 2.3 10^3/uL (1.2-3.8); Lymphocytes Percent Auto 29.9 % (20.5-60.0); Mean Corpuscular Hemoglobin 30.1 pg (26.7-34.0); Monocytes Absolute Auto 0.6 10^3/uL (0.3-0.8); Monocytes Percent Auto 7.2 % (1.7-12.0); Neutrophils Absolute Auto 4.7 10^3/uL (1.4-6.5); Platelet Count 158 10^3/uL (150-450); Red Blood Count 3.66 10^6/uL (4.20-5.40); Red Cell Distribution Width 13.8 % (11.0-15.0); White Blood Count 7.6 10^3/uL (4.0-11.0)
[2024-09-02 06:15] LABS: Alanine Aminotransferase 121 U/L (14-59); Albumin Globulin Ratio 0.9; Albumin Level 2.6 g/dL (3.4-5.0); Alkaline Phosphatase 89 U/L (46-116); Anion Gap 9.5; Aspartate Amino Transferase 43 U/L (15-37); BUN Creatinine Ratio 16.7; Bilirubin Total 0.3 mg/dL (0.2-1.0); Calcium 8.1 mg/dL (8.5-10.1); Carbon Dioxide 23.8 mmol/L (21.0-32.0); Chloride 111 mmol/L (98-107); Estimated GFR (African America >60 (>=60 mL/min/1.73m^2); Estimated GFR (Non-African Ame >60 (>=60 mL/min/1.73m^2); Globulin 2.9 g/dL; Glucose 91 mg/dL (74-106); Magnesium 1.6 mg/dL (1.8-2.4); Potassium 3.3 mmol/L (3.5-5.1); Sodium 141 mmol/L (136-145); Total Protein 5.5 g/dL (6.4-8.2)
--- NOTE | 2024-09-02 06:17 | P.DS_ITS ---
DS: Providers Provider Date of admission: 08/31/24 02:50 Primary care physician: Sandeep Lundberg MD DS: Diagnosis Discharge Diagnosis (1) Nausea & vomiting: (2) Transaminitis: (3) COVID: (4) HTN (hypertension): Qualifiers: Hypertension type: primary hypertension Qualified Code(s): I10 - Essential (primary) hypertension Plan Fever, sinus tachycardia nausea & vomiting: Leading to dehydration, maintain current fluid resuscitation, if eating well later today possible discharge Transaminitis:-Check an ultrasound later today, if ultrasound normal possible discharge Acute hypoxia with O2 sat of 85% due to COVID: Currently outside the window of treatment with Paxlovid, respiratory status is improving, patient no longer febrile, try to wean supplemental oxygen HTN (hypertension): Maintain current medication Sinus tachycardia-improved with hydration Iron deficiency anemia-monitor daily Hypokalemia-supplement Hypomagnesemia-supplement Hypothyroidism-recently checked levels were normal, maintain outpatient treatment Depression-continue with home medications Upper GI Bleed - stabdl - look into scope as out-pt Admission status: Patient currently in the observational time period, if unable to improve and wean off of supplemental oxygen or patient is unable to eat, medically necessary treatment will span 2 midnights and will change patient to inpatient status at that time ? DS: Summary Hospital Course Hospital Course: Pt admitted with acute hypoxa due to covid and significant dehydration, GIven remdesivir, inhalers, IV fluids, starte AB yesterday when pneumonia showed on Follow up cxr Pt is some better today, able to eat, diarrhea better, off supplemental Oxygen. Witht the overall improvement, will discharge to [facility] in improving condition, medications see list Needs followup o cholelithiasis - currnently assymptomatic Status at Discharge Overall status at discharge: patient is not back to baseline Time Spent with Patient Time attestation: Total time spent providing and/or coordinating discharge services: Time spent: greater than 30 minutes Exam Constitutional Vital Signs, click to edit/add: Last Vital Signs Temp 97.7 F 09/02/24 04:00 Pulse 66 09/02/24 05:57 Resp 18 09/02/24 04:00 BP 109/71 09/02/24 04:00 Pulse Ox 95 09/02/24 04:00 O2 Del Method Room Air 09/02/24 04:00 O2 Flow Rate 1 09/01/24 12:13 DS: Data Data Completed and Pending Labs on day of discharge: Labs from last 24 hours 09/02/24 09/01/24 05:29 02:45 WBC 7.6 RBC 3.66 L Hgb 11.0 L Hct 33.3 L MCV 91.0 MCH 30.1 MCHC 33.0 RDW 13.8 Plt Count 158 MPV 10.0 Neut % (Auto) 62.0 Lymph % (Auto) 29.9 [place] % (Auto) 7.2 Eos % (Auto) 0.3 L Baso % (Auto) 0.3 Neut # (Auto) 4.7 Lymph # (Auto) 2.3 [place] # (Auto) 0.6 Eos # (Auto) 0.0 Baso # (Auto) 0.0 Abs Immat Gran (auto) 0.02 Imm/Tot Granulo (auto) 0.3 Stool Occult Blood Positive A C. difficile Toxin PCR Negative Discharge Plan Discharge Disposition: Home, Self-Care Condition: Good Discharge Medications: New dexamethasone 4 mg tablet 4 mg PO DAILY Qty: 3 0RF azithromycin 500 mg tablet 500 mg PO DAILY 3 Days Qty: 3 0RF ondansetron 4 mg tablet,disintegrating 4 mg PO Q6H PRN (Reason: nausea and vomiting) Qty: 14 0RF Continued modafinil 200 mg tablet 200 mg PO DAILY levothyroxine 125 mcg tablet 125 mcg PO DAILY lisinopril 10 mg tablet 10 mg PO DAILY fluoxetine 10 mg capsule 10 mg PO DAILY Activity: resume usual activities as tolerated Diet: regular diet Print Language: Urdu Patient Instructions: Azithromycin (By mouth), Ondansetron (By mouth), Dexamethasone (By mouth), Acute Abdominal Pain (DC), COVID-19 (Coronavirus Disease 2019) (DC) Forms: Portal Instructions Follow Up Appointments: @ 9:30am with Dr. Lundberg [phone] Discharge Date/Time: 09/02/24 10:14
[2024-09-02 08:45] VITALS: BP 112/71; PULSE 65; TEMP 36.8; O2SAT 95
[2024-09-02] MEDS: REMDESIVIR 100 MG in 0.9 % SODIUM CHLORIDE 100 ML 200 MG IV (08:48)
[2024-09-02] MEDS: MODAFINIL 100 MG TABLET 200 MG PO (08:48)
[2024-09-02] MEDS: DEXAMETHASONE SOD PHOS 4 MG/ML VIAL IV (08:48)
[2024-09-02] MEDS: POTASSIUM CHLORIDE 10 MEQ ER TABLET PO (08:49)
[2024-09-02] MEDS: MAGNESIUM OXIDE 400 MG TABLET PO (08:49)
[2024-09-02] MEDS: FLUOXETINE HCL 10 MG CAPSULE PO (08:49)
[2024-09-02] MEDS: DICYCLOMINE HCL 10 MG CAPSULE 20 MG PO (08:49)
[2024-09-02] MEDS: FAMOTIDINE 20 MG TABLET 40 MG PO (08:49)
[2024-09-02 09:47] VITALS: PULSE 71
--- NOTE | 2024-09-03 13:44 | CM.DCFOLLOWU ---
09/03 - 1st attempt. No answer
--- NOTE | 2024-09-04 14:07 | CM.DCFOLLOWU ---
Person spoke with: Leida How are you feeling? Much better How is your pain? No pain Did you understand your discharge instructions? Yes Do you have any questions about your discharge instructions? No Were you given any prescriptions at discharge? Yes Were you able to get your prescriptions filled? Yes Do you understand how to take your medications as ordered? Yes Do you have any questions about your follow up appointment and do you plan to keep your follow up appointment? No questions appt is scheduled Is there anything else that you would like to discuss? No Questions/Comments/Concerns/Other:
== END 2024-09-02 10:14 | disposition home or self-care (01) ==
LOC: ER 22:52 → MS 08-31 02:51
PROVIDERS: Registered Nurse; Admitting Provider Family Medicine; Emergency Provider Student in an Organized Health Care Education/Training Program; PCP Family Medicine; Visit Provider Family Medicine
DX: U07.1 COVID-19 (principal); J12.82 Pneumonia due to coronavirus disease 2019; R11.2 Nausea with vomiting, unspecified; E86.0 Dehydration; K92.2 Gastrointestinal hemorrhage, unspecified; E03.9 Hypothyroidism, unspecified; R74.01 Elevation of levels of liver transaminase levels; Z79.890 Hormone replacement therapy; D50.0 Iron deficiency anemia secondary to blood loss (chronic); R79.89 Other specified abnormal findings of blood chemistry; Z90.2 Acquired absence of lung [part of]; G47.30 Sleep apnea, unspecified; I10 Essential (primary) hypertension; R09.02 Hypoxemia; R00.0 Tachycardia, unspecified; E87.6 Hypokalemia; E83.42 Hypomagnesemia; F32.A Depression, unspecified; R50.9 Fever, unspecified; J18.9 Pneumonia, unspecified organism; K80.20 Calculus of gallbladder without cholecystitis without obstruction
CPT/HCPCS: 36415; 71045; 71275; 74177; 76705; 80053; 83690; 83735; 84484; 85007; 85025; 85027; 85610; 85730; 87045; 87046; 87427; 87493; 87804; 87811; 93005; 94667; 94761; 96361; 96365; 96366; 96367; 96375; 96376; 99285; G0328; G0378; J0248; J0456; J0780; J1100; J1171; J2270; J2405; J2550; J3490; Q9967

== ENCOUNTER 2025-04-13 09:02 | Outpatient (OUT) | payer BC, SELFPAY ==
--- OUTSIDE RECORDS SUMMARY | 2024-10-16 08:30 | XMS_ITS ---
Author Name Auto Generated Organization OH[facility] Care Team Providers Care Cancer Registrar Name Role Phone DAVE ORTEGA Attending Unavailable BREANN TALLEY Attending Unavailable Kana Montilla Attending Unavailable Kana Montilla Admitting Unavailable Rakesh Lundberg Primary Care Unavailable MOONJONO RIVERA III Attending Unavailable MOON JONO IBARRA Referring Unavailable MOON JONO IBARRA Attending Unavailable RAKESH LUNDBERG Primary Care Unavailable MOON JONO IBARRA Referring Unavailable RAKESH LUNDBERG Referring Unavailable DORIS SUAREZ R Attending Unavailable MOON IIIJONO Attending Unavailable MOON IIIJONO Admitting Unavailable MOON III, JONO Be Referring Unavailable PROBLEMS DATE TYPE CONDITION / CODE ATTENDING STATUS [facility] 09/30/2024 Active Calculus of gall bladder without cholecystitis without obstruction / K80.20(ICD-10) JONO GONZALEZ III Active [facility] 09/15/2024 Active Uncomplicated as thma, unspecified asthma severity, unspecified whether persistent / J45.909(ICD-10) NA Active [facility] 09/16/2024 Active Pre-op examinati on / Z01.818(ICD-10) NA Active [facility] 06/18/2024 Unknown Change in bowel habit / R19.4(ICD-10) AnnaNegin eddykatherine Webber [facility] PROCEDURES No Procedure Records Found RESULTS PROGRESS Observed: 10/16/2024 8:31 AM Status: COMPLETED Source: [facility] HNO ID: [id number] Author: JONO GONZALEZ III, MD Service: ? Author Type: Physician Type: Progress Notes Filed: 10/16/2024 08:36 Note Text: This patient is 16 days post op from laparoscopic cholecystectomy. She has had no symptoms. P.E. The wounds are healing well without evidence of infection. I reviewed the pathology report with Leida. FINAL DIAGNOSIS A. Gallbladder, cholecystectomy: - Chronic cholecystitis with cholelithiasis and cholesterolosis. Electronically signed by Darcy Hernández MD, PhD Assessment Satisfactory course Plan: Return to office PRN. Jono Gonzalez III, MD CNOV Observed: 10/16/2024 8:30 AM Status: COMPLETED Source: [facility] Office Visit ([facility]) LEIDA DACOSTA ([id number]) 1965 F Date Time Provider Department 10/16/24 8:30 AM JONO GONZALEZ III During your visit today, we recorded the following information about you: Jono Gonzalez III, MD 10/16/2024 8:36 AM Signed This patient is 16 days post op from laparoscopic cholecystectomy. She has had no symptoms. P.E. The wounds are healing well without evidence of infection. I reviewed the pathology report with Leida. FINAL DIAGNOSIS A. Gallbladder, cholecystectomy: - Chronic cholecystitis with cholelithiasis and cholesterolosis. Electronically signed by Darcy Hernández MD, PhD Assessment Satisfactory course Plan: Return to office PRN. Jono Gonzalez III, MD Referring Provider: JONO GONZALEZ III [[id number]] Allergies As of Date: 10/16/2024 Noted Allergy Reaction CODEINE 08/07/2023 14 - Other: See Comments 2 - Rash PENICILLINS 05/21/2023 10 - Anaphylaxis 2 - Rash Date Reviewed: 10/16/2024 Reviewed by: Karine Huntley LPN - Fully Assessed Reason for Visit: Post Op Follow Up [3947] Cmt: Pod 16 f/u after having cholecystectomy. Primary Visit Diagnosis:Post-operative state [Z98.890] Prescriptions as of 10/16/2024 - albuterol HFA (VENTOLIN HFA) 90 mcg/actuation [...] times a day. Problem List As Of Date 10/16/2024 Noted Resolved Hypertension [I10] 09/15/2024 Hypothyroidism [E03.9] 09/15/2024 Pure hypercholesterolemia, unspecified [E78.00] 09/15/2024 Sleep apnea, unspecified [G47.30] 09/15/2024 Cholelithiasis [K80.20] 09/15/2024 Asthma [J45.909] 09/15/2024 Encounter Status:Closed by JONO GONZALEZ III on 10/16/24 KALE Observed: 10/02/2024 12:00 AM Status: COMPLETED Source: [facility] Telephone (Groupspeak) LEIDA DACOSTA ([id number]) 1965 F Date Time Provider Department 10/02/24 MICHELLE DUNN During your visit today, we recorded the following information about you: Michelle Dunn RN 10/02/2024 9:23 AM Signed POST OP PHONE CALL: Patient states she is doing really really well 1)Discussed/Advised of wound care of no water immersion, may shower and let the soap and water from the upper body cascade over the incisions. Avoid lotions, creams or ointments to incision if glue has been used. Glue will peel away in about 10-14 days: YES 2) Advised ice for the first few days: YES 3) Are you taking the pain medication and have you started weaning over to OTC: YES 4) Constipation after surgery can occur due to anesthesia, surgery and the narcotic: Discussed increase water intake, minimize use of narcotic as can add to issues for constipation. Take a stool softener to help the stool pass easier and you may start Miralax after the third day : had diarrhea first day but now nothing, starting Miralax today 5) Be sure to follow the weight and activity restrictions discussed: yes 6)Follow up post op appointment: yes 7) If any issues arise before the post op appt please call or Mychart the office: Additional questions or concerns regarding surgery: Patient asked when she could go back to work and I advised we typically say 2 weeks but if wants to go back earlier then as long as not taking narcotic and can stay within the restrictions discussed then can go back earlier. Informed patient to let us know via when she would like to go back and we can send a letter with that date and note the restrictions. Informed if work can not abide with restrictions then would need to be off longer. Allergies As of Date: 10/02/2024 Noted Allergy Reaction CODEINE 08/07/2023 14 - Other: See Comments 2 - Rash PENICILLINS 05/21/2023 10 - Anaphylaxis 2 - Rash Date Reviewed: 09/30/2024 Reviewed by: Gosia Sánchez RN - Fully Assessed Prescriptions as of 10/02/2024 - HYDROcodone-acetaminophen (NORCO) 5-325 mg per tablet Take 1 tablet by mouth every 6 hours as needed for pain for up to 3 days. - albuterol HFA (VENTOLIN HFA) 90 mcg/actuation [...] times a day. Problem List As Of Date 10/02/2024 Noted Resolved Hypertension [I10] 09/15/2024 Hypothyroidism [E03.9] 09/15/2024 Pure hypercholesterolemia, unspecified [E78.00] 09/15/2024 Sleep apnea, unspecified [G47.30] 09/15/2024 Cholelithiasis [K80.20] 09/15/2024 Asthma [J45.909] 09/15/2024 Encounter Status:Closed by MICHELLE DUNN on 10/02/24 NURSING PROG Observed: 09/30/2024 11:49 AM Status: COMPLETED Source: [facility] HNO ID: [id number] Author: GOSIA SÁNCHEZ RN Service: ? Author Type: Registered Nurse Type: Nursing Progress Note Filed: 09/30/2024 11:50 Note Text: Dr. Elise has cleared pt for discharge. EKG WNL. Chest heaviness is gone. NURSING PROG Observed: 09/30/2024 11:14 AM Status: COMPLETED Source: [facility] HNO ID: [id number] Author: GOSIA SÁNCHEZ, RONALD Service: ? Author Type: Registered Nurse Type: Nursing Progress Note Filed: 09/30/2024 11:16 Note Text: C/O chest heaviness. VSS. O2 on at 2L. H/O recent chest heaviness. NM ruled out. ANES POSTPROC EVAL Observed: 09/30/2024 10:41 AM Status: COMPLETED Source: [facility] HNO ID: [id number] Author: GALEN MOON MD Service: Anesthesiology Author Type: Anesthesiologist Type: Anesthesia Postprocedure Evaluation Filed: 09/30/2024 10:42 Note Text: POST ANESTHESIA EVALUATION NOTE : 1965 Procedure Summary Date: 09/30/24 Room / Location: [address] Anesthesia Start: 911 Anesthesia Stop: 958 Procedure: LAPAROSCOPIC CHOLECYSTECTOMY WITH GRAMS (Gallbladder) Diagnosis: Calculus of gallbladder without cholecystitis without obstruction (Calculus of gallbladder without cholecystitis without obstruction [K80.20]) Surgeons: Jono Gonzalez III, MD Responsible Provider: Galen Moon MD Anesthesia Type: general ASA Status: 2 Anesthesia Type: general Airway Type: ETT Last Vitals Vitals Value Taken Time BP 127/77 09/30/24 1031 Temp 37 09/30/24 1041 Pulse 58 09/30/24 1040 Resp 16 09/30/24 1031 SpO2 100 % 09/30/24 1040 Vitals shown include unfiled device data. Post Anesthesia Patient Status Patient Evaluation: PACU. PACU/ICU Patient Condition: stable. Anticipated Disposition: phase 2 then home. Neurological Status: aware and responsive. Pulmonary Status: breathing comfortably on room air Airway Control: returned to baseline unsupported. Cardiovascular Status: stable. Pain Management: clinically adequate - multimodal analgesia pain management approach Postoperative Hydration: acceptable. Intraoperative Events: no significant anesthesia events Recommendation: continue current plan of care. Anesthesia Observations No Documentation SIGNATURE: Galen Moon MD PATIENT NAME: Leida Dacosta DATE: September 30, 2024 TIME: 10:41 AM CSN: [id number] ECG COMPLETE Observed: 09/30/2024 10:28 AM Status: F Source: [facility] Ventricular Rate : 56 BPM Atrial Rate : 56 BPM P-R Interval : 166 ms QRS Duration : 78 ms Q-T Interval : 446 ms QTC Calculation(Bazett) : 430 ms Calculated P Hubbell : 20 degrees Calculated R Hubbell : 46 degrees Calculated T Hubbell : 21 degrees SINUS BRADYCARDIA OTHERWISE NORMAL ECG Confirmed by JAMISON KEY DO ([id number]) on 10/05/2024 10:51:14 AM NAME : LEIDA DACOSTA PID : [id number] : 1965 Gender : Female Race : Unknown ORD : [id number] Procedure Date : Sep 30 2024 10:28:37 Edit Date : Oct 05 2024 10:51:15 Diagnosis: SINUS BRADYCARDIA OTHERWISE NORMAL ECG Confirmed by JAMISON KEY DO ([id number]) on 10/05/2024 10:51:14 AM Test Reason : Chest Pain Location : 145 : [facility] [id number] Overread By : JAMISON KEY DO Edited By : JAMISON KEY DO Referred By : JONO GONZALEZ III Acquired by : RODGER lópez PATH BX REPORT Collected: 10/01/19 9:31 AM Status: F Source: [facility] Order Comment: Specimen Type : TISSUE SPECIMEN Ordering Facility: [facility] Address: [address] [place] [address] TYPE CODE TESTS RESULT OUT OF RANGE REFERENCE UNITS PATHOLOGY [id number] CASE REPORT Result Comment: Surgical Pat hology Report Case: [id number] Authorizing Provider: Jono Gonzalez III, MD Collected: 09/30/2024 09:31 AM Ordering Location: Ambulatory Surgery Received: 09/30/2024 10:52 AM Pathologist: Darcy Hernández MD, PhD Specimen: Gallbladder PATHOLOGY [id number] FINAL DIAGNOSIS Result Comment: A. Gallbladd er, cholecystectomy: - Chronic cholecystitis with cholelithiasis and cholesterolosis. at 1550 EDT PATHOLOGY [id number] GROSS DESCRIPTION A. Gallbladder Result Comment: Received in formalin labeled gallbladder is a 6.8 x 2.2 x 2.0 cm intact gallbladder with no defects present. A cystic duct lymph node is not identified. The serosa is smooth and glistening. The lumen contains bile admixed with multiple yellow, bosselated calculi ranging from 0.2-0.4 cm in greatest dimension. The mucosa is bile-stained with diffuse yellow streaking. The wall averages 0.3 cm in thickness. The cystic duct lumen is not obstructed. [employer] sections are submitted in one cassette. [facility] 09/30/24 5:34 PM Gross examination performed at [facility], [address] [place] [address] PATHOLOGY CDX2 CLINICAL HISTORY Result Comment: Pre-op diagn osis: Calculus of gallbladder without cholecystitis without obstruction [K80.20] PATHOLOGY [facility] FINAL PERFORMING LAB Result Comment: Diagnostic i nterpretation performed at: [facility], [address] [address] CLIA# [id number] Building Consultant: Cal Steen MD PATHOLOGY [id number] AP DISCLAIMER Result Comment: Laboratory D eveloped Test (LDT) Disclaimer: Performance characteristics of immunohistochemical, immunofluorescent, and chromogenic in-situ hybridization tests have been determined by the performing laboratory within [facility]'s [facility] Pathology and Laboratory Medicine Department ([facility], [facility], [facility], [facility], [facility], [facility], or [facility]) in a manner consistent with CLIA requirements. One or more of these tests may not have been cleared or approved by the FDA. [facility] is regulated under CLIA as qualified to perform high-complexity testing. These tests are used for clinical purposes. These should not be regarded as investigational or for research. Positive and negative controls stain appropriately. Performed By: #### [id number] # ### [facility] CLIA [id number] [address] ANES PROCEDURE NOTE Observed: 09/30/2024 9:30 AM Status: COMPLETED Source: [facility] HNO ID: [id number] Author: CAROLINA VENEGAS APRN.GREENHOUSE OR NURSERY TRANSPLANTER Service: Anesthesiology Author Type: Nurse Spring Fitter Type: Anesthesia Procedure Notes Filed: 09/30/2024 09:30 Note Text: ANESTHESIOLOGY PROCEDURE NOTE Airway General Information Procedure Start Time/Medication Administration: 09/30/2024 9:19 AM Procedure End Time: 09/30/2024 9:19 AM Patient location during procedure: OR Patient identity confirmed: arm band and patient Staffing GREENHOUSE OR NURSERY TRANSPLANTER: Carolina Venegas APRN.GREENHOUSE OR NURSERY TRANSPLANTER Performed by: GREENHOUSE OR NURSERY TRANSPLANTER Indications and Patient Condition Indications for airway management: anesthesia Preoxygenated: yes anesthesia circuit Method: sleep Difficult Mask: No Final Airway Details Final airway type: endotracheal airway Final Endotracheal Airway: ETT Cuffed: yes Successful intubation technique: direct laryngoscopy Endotracheal tube insertion site: oral Blade: Melany Blade size: #3 ETT size (mm): 7.0 Measured from: lips Measurement (cm): 21 Placement verified by: capnometry Cormack-Lehane Classification: grade IIa - partial view of glottis Number of attempts at approach: 1 Airway not difficult SIGNATURE: Carolina Venegas APRN.GREENHOUSE OR NURSERY TRANSPLANTER PATIENT NAME: Leida Dacosta DATE: September 30, 2024 TIME: 9:30 AM CSN: [id number] OPERATIVE NO Observed: 09/30/2024 9:12 AM Status: COMPLETED Source: [facility] ID: [id number] Author: JONO GONZALEZ III, MD Service: General Surgery Author Type: Physician Type: Operative Report Filed: 09/30/2024 09:46 Note Text: OPERATIVE REPORT LOG ID: [id number] SURGERY/PROCEDURE DATE: 09/30/2024 INCISION/PROCEDURE START TIME: 9:27 AM INCISION CLOSE/PROCEDURE END TIME: 9:44 AM SURGEON: Jono Gonzalez III, MD BUSINESS INTEGRATION ANALYST: Yesenia Monson PA-C OPERATION: Laparoscopic cholecystectomy ([id number]). ANESTHESIA: GETA and 20 mL of 0.5% Marcaine PREOPERATIVE DIAGNOSIS: Symptomatic cholelithiasis POSTOPERATIVE DIAGNOSIS: Same and chronic cholecystitis INDICATIONS FOR PROCEDURE: 59 year old female presented with abdominal pain and imaging with consistent with symptomatic cholelithiasis. I discussed laparoscopic (possible open) cholecystectomy with possible cholangiogram was discussed. Indications, risks, and benefits discussed and consent obtained. Risks including postoperative pain, bleeding, infection, bile leak, intrabdominal abscess, hematoma, bile duct injury requiring further major extensive surgery, post cholangiogram pancreatitis, and conversion to open approach were all discussed. Booklet given. OPERATIVE FINDINGS: See below. OPERATIVE PROCEDURE: The patient was taken to the operating room, placed supine on the operating room table. After general endotracheal anesthesia was established, the abdomen was prepped and draped in a standard sterile surgical fashion. An incision was created in the infraumbilical area. Dissection was carried down through the subcutaneous tissue and down to the fascia. The fascia was divided. Allis clamps were placed on both sides of the fascia and #0 Vicryl anchoring sutures were placed on both sides of the fascia. The peritoneum was entered and 12-mm Tara port was placed using this open Tara technique and held in position with the #0 Vicryl anchoring sutures. Pneumoperitoneum was then established using CO2. An incision is in the epigastric area and an 11-mm bladeless trocar was introduced into the abdomen under direct laparoscopic visualization. Following this, right subcostal and right lateral incisions were created and 5-mm bladeless trocars were introduced into the abdomen. The patienthad been tilted steeply to the left and in reverse Trendelenburg. Through the right lateral most port, a grasper with teeth was placed on the fundus. The gallbladder was retracted cephalad up toward the diaphragm. The cystic duct and cystic artery were identified. A cholangiogram was attempted but not performed because the cystic duct as it was too tiny in caliber. The cystic duct was identified and 2 clips were placed proximally and 1 distally and it was divided. The cystic artery was identified and 2 clips were placed proximally and 1 distally and it was divided. The gallbladder was removed from its fossa, placed in an Endocatch bag, and retrieved out of the 12-mm port. Hemostasis achieved with cautery. Pneumoperitoneum was released and all ports were removed. The previously placed #0 Vicryl anchoring sutures were utilized to close the fascia. I injected 0.5% Marcaine locally to the 4 sites to try to achieve adequate postoperative analgesia. Once this was completed, the skin was closed with 0000 monocryl sutures and skin glue was placed. ESTIMATED BLOOD LOSS: 5 mL. DRAINS: None SPECIMENS: Gallbladder to Pathology for further analysis. COMPLICATIONS: None. The role of the PA was to assist with exposure and dissection of tissue, management of the laparoscope, skin closure. I was present and participated in this entire operation. There were no available residents. Jono Gonzalez III, MD SIGNATURE: Jono Gonzalez III, MD PATIENT NAME: Leida Dacosta DATE: September 30, 2024 TIME: 9:45 AM HISTORY PHYSICAL Observed: 09/30/2024 8:39 AM Status: COMPLETED Source: [facility] ID: [id number] Author: JONO GONZALEZ III, MD Service: General Surgery Author Type: Physician Type: H&P Filed: 09/30/2024 08:39 Note Text: UPDATED HISTORY AND PHYSICAL EXAMINATION SERVICE DATE: 09/30/2024 SERVICE TIME: 8:39 AM PHYSICAL EXAM MUST BE COMPLETED ON ADMISSION The History and Physical (completed in the past 30 days) has been reviewed and the patient has been examined. The contents accurately reflect the patient's condition with the following additions or revisions since the HANDP was completed. Examination indicates no changes. This HANDP can be found in the Electronic Medical Record dated 09/16/2024. SIGNATURE: Jono Gonzalez III, MD PATIENT NAME: Leida Dacosta DATE: September 30, 2024 TIME: 8:39 AM ANES PRE-OP Observed: 09/30/2024 8:06 AM Status: COMPLETED Source: [facility] HNO ID: [id number] Author: GALEN MOON MD Service: Anesthesiology Author Type: Anesthesiologist Type: Anesthesia Preprocedure Evaluation Filed: 09/30/2024 08:06 Note Text: ANESTHESIOLOGY DAY OF SURGERY NOTE : 1965 Procedure Information Date/Time: 09/30/24829 Procedure: LAPAROSCOPIC CHOLECYSTECTOMY WITH GRAMS (Gallbladder) Location: [facility] / [facility] Surgeons: Jono Gonzalez III, MD Estimated body mass index is 28.25 kg/m? as calculated from the following: Height as of 09/16/24: 165.1 cm (5' 5 ). Weight as of 09/16/24: 77 kg (169 lb 12.1 oz). Most recent hematocrit and potassium results: No results found for this basename: HCT,HEMATOCRIT,K,POTASSIUM Relevant Problems ANESTHESIA (+) Sleep apnea, unspecified CARDIO (+) Hypertension ENDO (+) Hypothyroidism PULMONARY (+) Asthma (+) Sleep apnea, unspecified I - PHYSICAL EVALUATION AIRWAY Patient intubated: No. Mallampati: II. TM distance: >3 FB. Neck ROM: full ROM without neurological symptoms. Mouth opening: adequate. Short neck: no. Thick neck: no DENTAL Dental findings: teeth intact and poor dentition. Additional exam findings: no II - ANESTHESIA PLAN ASA Score: 2 Anesthetic Plan: general Airway type: ETT NPO Status: adequate Beta Racheal Monitoring Plan Monitoring plan: Standard ASA. Post Procedure Analgesic Plan Postoperative analgesic plan: parenteral or oral opioids and multimodal analgesia. Informed Consent Anesthetic risks, benefits, alternatives, personnel and consent discussed: yes. Patient / Responsible Democrat agrees to proceed: yes Patient / Surrogate agrees to blood products: yes DNR status not reviewed with patient and/or family prior to surgery. Significant changes in the patient condition since the History and Physical, not otherwise documented in primary service progress note: no. Potential Anesthesia issues that may suggest increased risk of complications or contraindication to planned procedure: none. Vitals Value Taken Time BP 112/73 09/30/24 0739 Pulse 72 09/30/24 0739 Resp 16 09/30/24 0739 Temp 36.4 ?C (97.5 ?F) 09/30/24 0739 SpO2 99 % 09/30/2439 Facility-Administered Medications as of 09/30/2024 Medication Dose Route Frequency - lidocaine (PF) 10 mg/mL (1 %) 1-2 mg injection (XYLOCAINE) 0.1-0.2 mL INTRADERMAL PRN - lactated ringers iv infusion 5-30 mL/hr INTRAVENOUS CONTINUOUS - NaCl 0.9% iv flush bag 20 mL INTRAVENOUS PRN - ciprofloxacin iv piggyback 400 mg in D5W 200 mL (CIPRO) 400 mg INTRAVENOUS ONCE - acetaminophen 1,000 mg tab(s) (TYLENOL) 1,000 mg ORAL As Directed - [COMPLETED] promethazine 12.5 mg tab(s) (PHENERGAN) 12.5 mg ORAL ONCE - lactated ringers iv infusion 5-30 mL/hr INTRAVENOUS CONTINUOUS Outpatient Medications as of 09/30/2024 Medication Sig - FLUoxetine (PROZAC) 10 mg capsule Take 10 mg by mouth every morning. - levothyroxine (SYNTHROID) 125 mcg tablet Take 1 tablet by mouth once daily. - lisinopril (ZESTRIL) 10 mg tablet Take 10 mg by mouth once daily. - modafinil (PROVIGIL) 200 mg tablet Take 200 mg by mouth once daily. - albuterol HFA (VENTOLIN HFA) 90 mcg/actuation inhaler Inhale 2 Puffs as instructed every 4 hours as needed. - mometasone-formoterol (DULERA) 100-5 mcg/actuation inhaler Inhale 2 Puffs as instructed two times a day. (Patient not taking: Reported on 09/12/2024) I have interviewed and examined the patient. I have reviewed the medical record and/or the pre-anesthesia evaluation, pertinent labs, and test results. This contains updated information obtained within 48 hours of Surgery/Procedure. SIGNATURE: Galen Moon MD PATIENT NAME: Leida Dacosta DATE: September 30, 2024 TIME: 8:06 AM CSN: [id number] HISTORY PHYSICAL Observed: 09/16/2024 7:00 AM Status: COMPLETED Source: [facility] H[facility] ID: [id number] Author: GEOVANY HANSEN APRN.SALOMON Service: ? Author Type: Nurse Practitioner Type: H&P Filed: 09/16/2024 07:53 Note Text: HISTORY AND PHYSICAL EXAMINATION SERVICE DATE: 09/16/2024 SERVICE TIME: 7:25 AM PRIMARY CARE PHYSICIAN: No primary care provider on file. REASON FOR VISIT: Leida Dacosta is a 59 year old female who is scheduled for laparoscopic (possible open) cholecystectomy with possible cholangiogram. at the request of Dr. Jono Gonzalez III for consultation. My final recommendation will be communicated back to the requesting physician by way of shared medical record or letter. Assessment Pure hypercholesterolemia, unspecified Assessment: lifestyle modifications encouraged Hypertension Assessment: stable and compliant with current medications Last 5 Encounter BP Readings: Date: BP: 09/16/2024 144/91 09/12/2024 120/70 08/12/2024 123/83 Sleep apnea, unspecified Assessment: CPAP compliant Asthma Assessment: stable and asymptomatic, uses inhalers. No recent URI. Lungs clear to auscultation Denies use of supplemental oxygen Today, 100% on RA Following with Dr. Suarez, Last Office Visit: 08/14/24 History of : 2009 - had a wedge resection of her left lung for a mass. FDG avid on PET. Ultimately determined to be pleural based. Mass resected. 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 No malignancy. Had COVID infection 08/31/24, was treated at [facility]. Today she is asymptomatic, Lungs CTA, breathing unlabored Cholelithiasis Assessment: presents for surgical intervention Hypothyroidism Assessment: stable with current medication regimen ANESTHESIA FINDINGS: Intubation History: No history of difficult intubation Significant Anesthesia Considerations: none Airway History: No history of difficult airway [place] Activity Status Index: METS: Walk indoors, such as around the house (1.75 METs) Do light work around the house, such as dusting or washing dishes (2.70 METs) Take care of self; that is eating, dressing, bathing, using the toilet (2.75 METs) Walk a block or two on level ground (2.75 METs) Do moderate work around the house, such as vacuuming, sweeping floors, or carrying in groceries (3.50 METs) Do yardwork, such as raking leaves, weeding, or pushing a power mower (4.50 METs) Climb a flight of stairs or walk up a hill (5.50 METs) Participate in moderate recreational activites, such as golf, bowling, dancing, doubles tennis, or throwing a baseball or football (6.00 METs) Do heavy work around the house, such as scrubbing floors, lifting or moving heavy furniture (8.00 METs) DASI Score: 37.45 Patient denies any chest pain or undue shortness of breath with the above physical activity. Clinical Frailty Scale: 1. Very fit STOP-Bang Score: STOP-Bang Score: 0 (JANIS CPAP compliant ) [id number] Score: Age: <65 Sex: female CHF history: No Hypertension history: Yes Stroke/TIA/thromboembolism history: No Vascular disease history: No Diabetes history: No [id number] Score: 2 ARISCAT Score: Age: 51-80 Preoperative SpO2: >=96% Respiratory infection in the last month: Yes Duration of surgery: <2 hrs Emergency procedure: No ARISCAT Score: I - PHYSICAL EVALUATION AIRWAY Patient intubated: No. Tracheostomy tube not present Mallampati: I. TM distance: >3 FB. Neck ROM: full ROM without neurological symptoms. Mouth opening: adequate. Short neck: no. Thick neck: no Garcia present: no Lip Bite Test: I Microretrognathia/Micronagthia/Recessed Chin: No DENTAL Dental findings: teeth intact. II - ANESTHESIA PLAN Anesthetic plan additional comments: *PACC/TCI - anesthesia choice. Beta Racheal Monitoring Plan Post Procedure Analgesic Plan Prepared for surgery: This patient is optimally prepared for surgery. CONSULTS: Patient does not require consults for optimization at this time. The Following Tests/Procedures Have Been Initiated: Labs not indicated per PACC protocol, EKG not indicated per PACC protocol Planned Anesthetic: Per anesthesia choice Subjective CHIEF COMPLAINT: Symptomatic cholelithiasis HPI: Patient is a 59 year old FEMALE presenting for pre-op evaluation for the above procedure. Patient denies any chest pain, shortness of breath, palpitations, fever/chills, nausea/vomiting, fatigue, or diarrhea. REVIEW OF SYSTEMS: PAIN ASSESSMENT: General: No weight loss, malaise or fevers. Neuro: No history of TIA's, stroke, CITY SUPERINTENDENT tumor, impaired sensorium, hemiplegia, paraplegia or quadraplegia. No neurological symptoms or problems. 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 : Denies, No LMP recorded. Patient is postmenopausal. Endocrine: hypothyroidism Hematology: No history of bleeding or clotting disorder. Pt is not taking anti-coagulation or platelet medications. No history of hematological symptoms or problems. Oncology: No history of CA metastasis, chemo within 30 days, or radiotherapy within 90 days. Has not lost 10% of body wt in 6 months. No history of oncological symptoms or problems. Implanted Devices: No Psych: No history of psychiatric symptoms or problems. Marijuana use: No Musculoskeletal: Negative for joint pain or swelling, back pain or muscle pain. Skin: Negative for lesions, rash and itching. The patient has the following: ACTIVE PROBLEM LIST Hypertension Hypothyroidism Pure Hypercholesterolemia, Unspecified Sleep Apnea, Unspecified Cholelithiasis Asthma Covid Immunization Dates Current Care Gaps Covid-19 Vaccine ( season) Overdue since 03/16/2024 03/29/2021 Imm Admin: COVID-19 original vaccine, age 12+ yr, monovalent (PFIZER-BIONTECH - PURPLE TOP) 03/08/2021 Imm Admin: COVID-19 original vaccine, age 12+ yr, monovalent (PFIZER-BIONTECH - PURPLE TOP) No past medical history on file. PAST SURGICAL HISTORY Procedure Laterality Date PAST SURGICAL HISTORY OF Right wrist fracture PAST SURGICAL HISTORY OF Left 2010 wedge resection of her left lung for a mass PAST SURGICAL HISTORY OF deviated septum surgery PAST SURGICAL HISTORY OF cystoscopy - stent for kidney stones PAST SURGICAL HISTORY OF PAST SURGICAL HISTORY OF prolapsed rectum No family history on file. Social History Tobacco Use Smoking status: Never Smokeless tobacco: Never Vaping Use Vaping status: Never Used Substance Use Topics Alcohol use: Never Drug use: Never Prior to Admission medications as of 09/16/24 0696 Medication Sig Last Dose Taking albuterol HFA (VENTOLIN HFA) 90 mcg/actuation inhaler Inhale 2 Puffs as instructed every 4 hours as needed. Yes FLUoxetine (PROZAC) 10 mg capsule Take 10 mg by mouth every morning. Yes levothyroxine (SYNTHROID) 125 mcg tablet Take 1 tablet by mouth once daily. Yes lisinopril (ZESTRIL) 10 mg tablet Take 10 mg by mouth once daily. Yes modafinil (PROVIGIL) 200 mg tablet Take 200 mg by mouth once daily. Yes mometasone-formoterol (DULERA) 100-5 mcg/actuation inhaler Inhale 2 Puffs as instructed two times a day. Patient not taking: Reported on 09/12/2024 No medication comments found. ALLERGIES Allergen Reactions Codeine Other: See Comments, Rash Penicillins Anaphylaxis, Rash Objective PHYSICAL EXAM: VITALS: BP 144/91 Pulse 55 Temp (Src) 98.1 (Oral) Resp 14 Ht 5' 5 (1.65m) Wt 169 lb 12.1 oz (77.0kg) SpO2 100% BMI 28.25 kg/(m2). General: Alert and oriented, No acute distress Skin: Normal color, no rash, no lesions. HEENT: EOM, pupils equal, round and reactive. Cardiovascular: Normal S1 AND S2, no rubs, murmurs or gallops. No JVD. Pulse regular. Lungs: Normal breath sounds, no wheezes or crackles. Abdomen: Soft, non-tender, no rigidity. Extremities: No deformity, no edema or tenderness, no joint swelling or clubbing. Neurological: Normal cognition and motor skills. Pulses: Carotid and radial pulses normal +2. Diagnostic tests reviewed for today's visit: Labs and EKG in Summarization Report in care everywhere [facility] 08/31/24 CMP 08/31/24 Lab Value Units Date High Low HB No results within date range. HCT No results within date range. WBC No results within date range. PLT No results within date range. NA No results within date range. K No results within date range. GLUC No results within date range. BUN No results within date range. CREAT No results within date range. PTSEC No results within date range. INR No results within date range. APTT No results within date range. ALT No results within date range. AST No results within date range. TBILI No results within date range. TSH No results within date range. No results found for: HBA1C Most recent EKG (Labs and EKG in Summarization Report in care everywhere [facility]) [facility] Test Date: 2024-08-30 Pat Name: LEIDA DACOSTA Department: Room: - Gender: Female Manager Of Change: : 1965 Requested By: RAKESH LUNDBERG Order Number: [id number] Reading MD: RAKESH LUNDBERG Measurements Intervals Hubbell Rate: 96 P: 65 GA: 174 QRS: 88 QRSD: 68 T: 40 QT: 334 QTc: 387 Interpretive Statements 1100 Sinus rhythm 9110 normal ECG STRESS 03/06/24 FINDINGS: QUALITY OF STUDY: Excellent. PERFUSION DEFECT: None. LOCATION: N/A SIZE: N/A. SEVERITY: N/A. TYPE: N/A. WALL MOTION: Normal. LV SIZE: Normal. 47 mL. TID / TCD: None; 0.6 LVEF: Normal. Calculated EF 81%. SUMMARY: Myocardial perfusion imaging study is NORMAL. CONCLUSION: 1. Normal nuclear medicine myocardial perfusion scan. Dictated by: Philip Taylor M.D. on 03/06/2024 08/31/24 CT/CT angio chest IMPRESSION: 1. No evidence of pulmonary embolism or an acute cardiopulmonary abnormality. 2. Fluid within the esophagus nearly to the thoracic inlet. This could be secondary to gastroesophageal reflux, and places the patient at risk for aspiration. Electronically authenticated by: Alin GLEASON Date: 08/31/2024 00:59 08/31/24 CT/CT abdomen pelvis w con IMPRESSION: 1. Liquid stool throughout the small bowel loops and colon, in keeping with enteritis and diarrhea. 2. Mild intrahepatic biliary ductal dilatation, nonspecific. 3. Normal appendix. Electronically authenticated by: Alin GLEASON Date: 08/31/2024 01:05 Instructions Given to Patient: Instructions located in the after visit summary. Patient given verbal and written preop instructions and voices comprehension and compliance. SIGNATURE: Geovany Hansen APRN.CNP PATIENT NAME: Leida Dacosta DATE: 09/16/2024 TIME: 7:52 AM CNPN Observed: 09/15/2024 12:00 AM Status: COMPLETED Source: [facility] Telephone (Groupspeak) LEIDA DACOSTA ([id number]) 1965 F Date Time Provider Department 09/15/24 JONO GONZALEZ III During your visit today, we recorded the following information about you: Marilou Roger 09/15/2024 1:18 PM Signed Marilou Roger 09/15/2024 2:33 PM Signed Spoke with pt scheduled for surgery. Allergies As of Date: 09/15/2024 Noted Allergy Reaction CODEINE 08/07/2023 14 - Other: See Comments 2 - Rash PENICILLINS 05/21/2023 10 - Anaphylaxis 2 - Rash Date Reviewed: 09/12/2024 Reviewed by: Jessica Stone LPN - Fully Assessed Reason for Visit: Schedule Surgery [1330] Primary Visit Diagnosis:Calculus of gallbladder without cholecystitis without obstruction [K80.20] Order(s):SURGICAL REQUEST - ELECTIVE (02/2020) [8666140] Order #: [id number]: 1 Prescriptions as of 09/17/2024 - albuterol HFA (VENTOLIN HFA) 90 mcg/actuation [...] times a day. Problem List As Of Date 09/15/2024 Noted Resolved Hypertension [I10] 09/15/2024 Hypothyroidism [E03.9] 09/15/2024 Pure hypercholesterolemia, unspecified [E78.00] 09/15/2024 Sleep apnea, unspecified [G47.30] 09/15/2024 Cholelithiasis [K80.20] 09/15/2024 Asthma [J45.909] 09/15/2024 Encounter Status:Closed by MARILOU ROGER on 09/17/24 VICK Observed: 09/12/2024 12:00 PM Status: COMPLETED Source: [facility] Office Visit (GENSAV) LEIDA DACOSTA ([id number]) 1965 F Date Time Provider Department 09/12/24 12:00 PM JONO GONZALEZ III During your visit today, we recorded the following information about you: Pulse Blood pressure Weight Height 75/minute 120/70 78.1 kg 1.676 m Jono Gonzalez III, MD 09/12/2024 10:21 AM Signed Ms. Sosak is here today at the request of Doris Suarez MD for my opinion regarding abdominal pain. My final recommendation will be communicated back to the requesting physician by way of shared medical record or letter. Pain is located in RUQ Pain is dull/aching Pain severity is 7/10 Pain radiates to back Pain is associated with nausea and vomiting, constipation Pain is worse with fat and greasy foods Pain is better with avoiding those foods No past medical history on file.No past surgical history on file. Social History Tobacco Use Smoking status: Never Smokeless tobacco: Never No family history on file. REVIEW OF SYSTEMS GENERAL: No weight loss, malaise or fevers. HEENT: Negative for frequent or significant headaches, Negative for changes in hearing, vision or dizziness, Negative for nose bleeds, Negative for difficulty swallowing or hoarseness RESPIRATORY: Positive for cough, shortness of breath, and wheezing, recent pneumonia, + COVID 2 weeks ago CARDIOVASCULAR: Negative for leg swelling or palpitations. Positive for chest pain GI: SEE HPI : No history of dysuria, hematuria, frequency or incontinence. SKIN: Negative for lesions, rash, and itching NEURO: No history of headaches, syncope, paralysis, seizures or tremors PHYSICAL EXAMINATION BP 120/70 Pulse 75 Ht 167.6 cm (5' 6 ) Wt 78.1 kg (172 lb 2.9 oz) SpO2 99% BMI 27.79 kg/m? General Appearance: Well appearing, alert, in no acute distress, well-hydrated, well nourished. Skin: Color, texture, turgor normal, no suspicious rashes or lesions Head: Normocephalic, no masses, lesions, tenderness or abnormalities Neck: Supple, no adenopathy; Lungs: Clear to auscultation. No wheezing, rhonchi, rales Heart: RRR without murmur, gallop, or rubs. No ectopy Abdomen: Soft, non-tender. Bowel sounds normal. Extremities: No ankle edema. Lymph Nodes: No cervical lymphadenopathy Participation of a fellow, resident, medical student, or advanced practice provider student in performing the sensitive examination was discussed with the patient or authorized business office representative. The patient or authorized business office representative has agreed to proceed with the sensitive examination. (Sensitive examination includes inspection and/or palpation of the breasts, pelvis, prostate and anorectal regions) US (09/01/2024): Cholelithiasis Assessment Symptomatic cholelithiasis Plan: Recommend laparoscopic (possible open) cholecystectomy with possible cholangiogram. Indications, risks, and benefits discussed and consent obtained. Risks including postoperative pain, bleeding, infection, bile leak, intrabdominal abscess, hematoma, bile duct injury requiring further major extensive surgery, post cholangiogram pancreatitis, and conversion to open approach were all discussed. Booklet given. Attending note: Patient seen by Michelle Dunn RN and myself. I personally examined the patient, all components above personally confirmed, note attended where appropriate. History and exam as noted above reviewed. Agree with plan as discussed above. Jono Gonzalez III, MD cc: Referring provider Doris Suarez MD Allergies As of Date: 09/12/2024 Noted Allergy Reaction CODEINE 08/07/2023 14 - Other: See Comments 2 - Rash PENICILLINS 05/21/2023 10 - Anaphylaxis 2 - Rash Date Reviewed: 09/12/2024 Reviewed by: Jessica Stone LPN - Fully Assessed Reason for Visit: New Patient [172] Cmt: Cholelithiasis Primary Visit Diagnosis:Calculus of gallbladder without cholecystitis without obstruction [K80.20] Prescriptions as of 09/12/2024 - albuterol HFA (VENTOLIN HFA) 90 mcg/actuation [...] a day. Problem List As Of Date: 09/12/2024 (None) Encounter Status:Closed by JONO GONZALEZ III on 09/12/24 HISTORY PHYSICAL Observed: 09/12/2024 9:53 AM Status: COMPLETED Source: [facility] HNO ID: [id number] Author: JONO GONZALEZ III, MD Service: ? Author Type: Physician Type: H&P Filed: 09/12/2024 10:21 Note Text: Ms. Dacosta is here today at the request of Doris Suarez MD for my opinion regarding abdominal pain. My final recommendation will be communicated back to the requesting physician by way of shared medical record or letter. Pain is located in RUQ Pain is dull/aching Pain severity is 7/10 Pain radiates to back Pain is associated with nausea and vomiting, constipation Pain is worse with fat and greasy foods Pain is better with avoiding those foods No past medical history on file.No past surgical history on file. Social History Tobacco Use Smoking status: Never Smokeless tobacco: Never No family history on file. REVIEW OF SYSTEMS GENERAL: No weight loss, malaise or fevers. HEENT: Negative for frequent or significant headaches, Negative for changes in hearing, vision or dizziness, Negative for nose bleeds, Negative for difficulty swallowing or hoarseness RESPIRATORY: Positive for cough, shortness of breath, and wheezing, recent pneumonia, + COVID 2 weeks ago CARDIOVASCULAR: Negative for leg swelling or palpitations. Positive for chest pain GI: SEE HPI : No history of dysuria, hematuria, frequency or incontinence. SKIN: Negative for lesions, rash, and itching NEURO: No history of headaches, syncope, paralysis, seizures or tremors PHYSICAL EXAMINATION BP 120/70 Pulse 75 Ht 167.6 cm (5' 6 ) Wt 78.1 kg (172 lb 2.9 oz) SpO2 99% BMI 27.79 kg/m? General Appearance: Well appearing, alert, in no acute distress, well-hydrated, well nourished. Skin: Color, texture, turgor normal, no suspicious rashes or lesions Head: Normocephalic, no masses, lesions, tenderness or abnormalities Neck: Supple, no adenopathy; Lungs: Clear to auscultation. No wheezing, rhonchi, rales Heart: RRR without murmur, gallop, or rubs. No ectopy Abdomen: Soft, non-tender. Bowel sounds normal. Extremities: No ankle edema. Lymph Nodes: No cervical lymphadenopathy Participation of a fellow, resident, medical student, or advanced practice provider student in performing the sensitive examination was discussed with the patient or authorized business office representative. The patient or authorized business office representative has agreed to proceed with the sensitive examination. (Sensitive examination includes inspection and/or palpation of the breasts, pelvis, prostate and anorectal regions) US (09/01/2024): Cholelithiasis Assessment Symptomatic cholelithiasis Plan: Recommend laparoscopic (possible open) cholecystectomy with possible cholangiogram. Indications, risks, and benefits discussed and consent obtained. Risks including postoperative pain, bleeding, infection, bile leak, intrabdominal abscess, hematoma, bile duct injury requiring further major extensive surgery, post cholangiogram pancreatitis, and conversion to open approach were all discussed. Booklet given. Attending note: Patient seen by Michelle Dunn RN and myself. I personally examined the patient, all components above personally confirmed, note attended where appropriate. History and exam as noted above reviewed. Agree with plan as discussed above. Jono Gonzalez III, MD cc: Referring provider MD KALE Hurley Observed: 09/11/2024 12:00 AM Status: COMPLETED Source: [facility] Telephone (Imonomy InteractiveSAWiFi Rail) LEIDA DACOSTA ([id number]) 1965 F Date Time Provider Department 09/11/24 MICHELLE DUNN During your visit today, we recorded the following information about you: Michelle Dunn RN 09/11/2024 2:02 PM Signed Message left to call the office as patient is scheduled for cholelithiasis and I do not have any imaging for the appt . Informed that we would need this to be seen as it may not be beneficial for patient if no imaging completed. Informed I have done an update but nothing showing yet. Michelle Dunn RN 09/11/2024 3:56 PM Signed Called referring providers office and spoke with staff to please send a copy of US or CT that denotes gallstones as no imaging available. Office fax number given Marquita Clai 09/12/2024 7:46 AM Signed Our office received US results scanned into patient's chart. Thank you. Allergies As of Date: 09/11/2024 Noted Allergy Reaction CODEINE 08/07/2023 14 - Other: See Comments 2 - Rash PENICILLINS 05/21/2023 10 - Anaphylaxis 2 - Rash Date Reviewed: 08/12/2024 Reviewed by: Mattie Link MA - Fully Assessed Prescriptions as of 09/12/2024 - albuterol HFA (VENTOLIN HFA) 90 mcg/actuation [...] a day. Problem List As Of Date: 09/11/2024 (None) Encounter Status:Closed by MICHELLE DUNN on 09/11/24 SALOMONN Observed: 08/14/2024 12:00 AM Status: COMPLETED Source: [facility] Telephone (PULMLO) LEIDA DACOSTA ([id number]) 1965 F Date Time Provider Department 08/14/24 DORIS SUAREZ PULMLO During your visit today, we recorded the following information about you: Mattie Link MA 08/14/2024 10:59 AM Signed Doris Suarez MD P Pul Nurse Could we try to obtain images of CT chest 02/13/2024 from [facility] in [facility]? Thanks Mattie Link MA 08/14/2024 11:49 AM Signed Faxed image request to [facility] Confirmation received Mattie Link MA 08/19/2024 8:52 AM Signed Image has been imported into [employer] and is available to view. Doris Suarez [...] Encounter Status:Closed by MATTIE LINK on 08/19/24 HISTORY PHYSICAL Observed: 08/12/2024 1:19 PM Status: COMPLETED Source: [facility] HN ID: [id number] Author: DORIS SUAREZ MD Service: ? Author Type: Physician Type: H&P Filed: 08/14/2024 10:50 Note Text: . [facility] Initial Visit Note Ms. Dacosta is a 59 year old female who presents to the [facility]. Consultation requested by Rakesh Lundberg MD for [...] getting sick again Evaluated for immunodeficiency by Double Cutter at [place]. On 06/09/2024. Had PFTs. FENO 12ppb. FEV1 [...] tobacco: Never Never smoker. Worked at a [employer] facility for 27 years. Works in the [...] personally reviewed by me Data Reviewed from [facility] (in addition to that noted in HPI, and Past histories above): (Data from patient's OSH mychart shown on phone) CBC: last eos 100 (05/2024) IgE: 45 (wnl) PFT: 08/01/2024 Ratio 75% (normal) FEV1 120%, FVC 125% Reported positive bronchodilator response based on FEF 25-75. RV 129% (high) TLC 133% (high) DLCOc 10 3% (normal) CT Chest: 02/13/2024 (OSH, images unavailable) - [facility] in [facility] Lung: Scattered linear densities and calcifications, chronic scarring is favored. Mild dependent atelectasis. No focal parenchymal infiltrates or significant pulmonary nodules. Pleura: No mass, effusion, pneumothorax Lizeth: Small calcified right hilar lymph nodes. Assessment and Plan: Ms. Dacosta is a 59 year old female who presents to the [facility] for evaluation of bronchitis. #Recurrent bronchitis #Asthma [...] oral steroids, ultimately deferred -Should keep her airconditioning drafting officer appointment for follow-up testing -I will attempt to obtain images of her outside hospital CT -Follow-up in 3 months with spirometry and nitric oxide before hand Doris Suarez MD Pulmonary and Critical Care Staff [facility] Level 4 CNOV Observed: 08/12/2024 1:00 PM Status: COMPLETED Source: [facility] Office Visit (PULMLO) LEIDA DACOSTA ([id number]) 1965 F Date Time Provider Department 08/12/24 1:00 PM DORIS SUAREZ PULMLO During your visit today, we recorded the following information about you: Pulse Blood pressure Weight 83/minute 123/83 77.2 kg Doris Suarez MD 08/14/2024 10:50 AM Signed . [facility] Initial Visit Note Ms. Dacosta is a 59 year old female who presents to the [facility]. Consultation requested by Rakesh Lundberg MD for [...] getting sick again Evaluated for immunodeficiency by Double Cutter at [place]. On 06/09/2024. Had PFTs. FENO 12ppb. FEV1 [...] personally reviewed by me Data Reviewed from [facility] (in addition to that noted in HPI, and Past histories above): (Data from patient's OSH mychart shown on phone) CBC: last eos 100 (05/2024) IgE: 45 (wnl) PFT: 08/01/2024 Ratio 75% (normal) FEV1 120%, FVC 125% Reported positive bronchodilator response based on FEF 25-75. RV 129% (high) TLC 133% (high) DLCOc 10 3% (normal) CT Chest: 02/13/2024 (OSH, images unavailable) - [facility] in [facility] Lung: Scattered linear densities and calcifications, chronic scarring is favored. Mild dependent atelectasis. No focal parenchymal infiltrates or significant pulmonary nodules. Pleura: No mass, effusion, pneumothorax Lizeth: Small calcified right hilar lymph nodes. Assessment and Plan: Ms. Dacosta is a 59 year old female who presents to the [facility] for evaluation of bronchitis. #Recurrent bronchitis #Asthma [...] oral steroids, ultimately deferred -Should keep her airconditioning drafting officer appointment for follow-up testing -I will attempt to obtain images of her outside hospital CT -Follow-up in 3 months with spirometry and nitric oxide before hand Doris Suarez MD Pulmonary and Critical Care Staff [facility] Level 4 Doris Suarez MD 08/12/2024 2:04 PM Addendum It was a pleasure seeing you in the office today. Here is a summary of the plan we discussed: How to use an inhaler with or without a spacer- https://www.cdc.gov/asthma/inhaler_video/default.htm Please start Dulera inhaler - 2 puffs [...] office or send me a message through [employer] if you have any questions. Sincerely, Doris Suarez MD Referring Provider: RAKESH LUNDBERG [[id number]] Allergies As of Date: 08/12/2024 Noted Allergy Reaction CODEINE 08/07/2023 14 - Other: See Comments 2 - Rash PENICILLINS 05/21/2023 10 - Anaphylaxis 2 - Rash Date Reviewed: 08/12/2024 Reviewed by: Mattie Link MA - Fully Assessed Reason for Visit: Cough [28] Cmt: Reports getting sick a lot, covid in fall 2019 and fall 2023, then got bronchitis and pneumonia and then bronchitis again. Patient states she was told there is some lung scaring. Seen Allergy in [facility] Primary Visit Diagnosis:Severe persistent asthma without complication [J45.50] Other Visit Diagnosis:Shortness of breath [R06.02] Order(s):mometasone-formoterol (DULERA) 100-5 mcg/actuation inhalerInhale 2 Puffs as instructed two times a day.Disp: 13 gRfl: 2 NITRIC OXIDE, EXHALED [3606607] Order #: [id number]: 1 FUTURE SPIROMETRY WITH DILATOR IF OBSTRUCTED [[id number]] Order #: [id number]: 1 FUTURE Prescriptions as of 08/14/2024 - albuterol HFA (VENTOLIN HFA) 90 mcg/actuation [...] a day. Problem List As Of Date: 08/12/2024 (None) Other instructions from your clinician: It was a pleasure seeing you in the office today. Here is a summary of the plan we discussed: How to use an inhaler with or without a spacer- https://www.cdc.gov/asthma/inhaler_video/default.htm Please start Dulera inhaler - 2 puffs [...] office or send me a message through [employer]ber if you have any questions. Sincerely, Doris Suarez MD Prescriptions ordered this encounter Disp Refills Start End MOMETASONE-FORMOTEROL HFA 100 MCG-5 * 13 g 2 08/12/2024 11/10/2024 Route: INHALATION Sig: Inhale 2 Puffs as instructed two times a day. Disposition: Return in about 3 months (around 11/10/2024). Follow-up and Disposition History for Encounter Date Provider Department Center 08/12/2024 [id number]-GEPIAMDORIS SUAREZ [facility] [place] Encounter Status:Closed by DORIS SUAREZ on 08/14/24 ALLERGIES DATE TYPE / CODE NAME / CODE REACTION SEVERITY SOURCE 06/04/2024 Drug Allergy/4160 13647(SNOMED CT) Penicillins/K582605 476(RXNORM) Unknown Reaction, rash Unknown [facility] 06/04/2024 Drug Allergy/4160 40537(SNOMED CT) codeine/[id number]( RXNORM) Agitated Unknown [facility] 06/04/2024 Drug Allergy/4160 38908(SNOMED CT) erythromycin base/S489435321(RXN ORM) Nausea Unknown [facility] 08/07/2023 DRUG INGREDI/4195 27696(SNOMED CT) CODEINE OTHER: SEE C [facility] 05/21/2023 Drug Class/581760 003(SNOMED CT) PENICILLINS ANAPHYLAXIS [facility] ENCOUNTERS ADMIT/DISCHARGE ACCOUNT NUMBER ADMITTING ENCOUNTER CLASS LOCATION SOURCE 10/16/2024/10/17/19 [id number] [facility] 09/30/2024 [id number] JONO GONZALEZ III [facility][id number] m: [id number]: L010-09 [facility] 09/16/2024/09/17/19 [id number] [facility] 09/12/2024/09/12/19 [id number] [facility] 09/08/2024 [id number] Ambulatory [facility] ding:[facility] 08/12/2024/08/12/19 [id number] [facility] [facility] 06/18/2024/06/18/20 [id number] [facility] 06/09/2024/06/09/20 [id number] Ambulatory Building:NOM S SWS ALL [facility] 04/16/2024/04/16/20 [id number] Ambulatory Building:BSR NEURO [facility] EPIC PAYERS ENCOUNTER GUARANTOR PAYER SUBSCRIBER SOURCE 10/16/2024 Primary Insurance:BLUE CARD [facility] OOSPnyc health + hospitalsy Number: [id number] gurinder Date:8958-27-34Miu n Name:Akbar SOSAKDOB: [id number] [address], [place] [address] [facility] 09/30/2024 Primary Insurance:BLUE CARD PPO OOSPolicy Number: [id number] gurinder Date:9915-10-36Bhk n Name:Akbar SOSAKDOB: [id number] [address], [place] [address] [facility] 09/16/2024 Primary Insurance:BLUE CARD PPO OOSPolicy Number: [id number] gurinder Date:8916-27-45Oxk n Name:Akbar SOSAKDOB: [id number] [address], [place] [address] [facility] 09/12/2024 Primary Insurance:BLUE CARD PPO OOSPolicy Number: [id number] gurinder Date:0527-39-32Npu n Name:Akbar SOSAKDOB: [id number] [address], [place] [address] [facility] 08/12/2024 Primary Insurance:BLUE CARD PPO OOSPolicy Number: [id number] gurinder Date:2693-19-38Iwo n Name:Akbar SOSAKDOB: [id number] [address] [address] [facility] 06/18/2024 Leida Webber [address] [id number]: (HP) Primary Insurance:[place] BC/BSPolicy Number: [id number] gurinder Date:2024-05-21 Leida Akbar SosakDOB: [id number] [address] [address]Txc: (HP) [facility] 06/18/2024 Secondary Insurance:Self PayPolicy Number: Effective Date:2024-06-16 [facility] LEIDA NEALJESSICAKDOB: [address] [address]Fdl: (HP) Primary Insurance:quitchenPol cy Number: [id number] gurinder Date:2020-11-13 LEIDA NGUYENOB: [id number] [address] [address] [facility] 04/16/2024 LEIDA NGUYENOB: [address] [address]Tlq: (HP) Primary Insurance:[place] cy Number: [id number] gurinder Date:2020-11-13 LEIDA NGUYENOB: [id number] [address] [address] [facility] EPIC
--- NOTE | 2025-04-13 09:05 | CA_ITS ---
Patient Name: PRAVEENA DACOSTA MR#: [id number] : 1965 Exam Date: 04/13/2025 Ordering Doctor: DR RAKESH VERNON . ECHOCARDIOGRAM REPORT PROCEDURE: CA ECHO DOPPLER COMPLETE INDICATIONS: Chest pain, tachycardia COMPARISON: None. DESCRIPTION: COMPLETE ECHOCARDIOGRAM Real-time transthoracic echocardiography with 2D, M-mode, spectral and color flow Doppler performed. QUALITY: Technical quality was good. LEFT VENTRICLE: Normal chamber size. Thickened septal wall. Global left ventricular systolic function is normal. LV EF: Estimated left ventricular ejection fraction is 60-65%. DIASTOLIC: Normal diastolic function. ATRIAL SEPTUM: LEFT ATRIUM: Mild dilatation. RIGHT ATRIUM: Normal chamber size. RIGHT VENTRICLE: Normal chamber size. Normal right ventricular systolic function. TRICUSPID VALVE: Normal mobility and thickness. No stenosis with trivial regurgitation. No evidence of pulmonary hypertension. RVSP 23 mmHg. MITRAL VALVE: Normal mobility and thickness. No evidence of mitral valve stenosis. There is no mitral annular calcification. Mild mitral regurgitation. AORTIC VALVE: Normal trileaflet appearance. No visible sclerosis. Normal leaflet mobility. No evidence of aortic valve stenosis. No aortic regurgitation. AORTIC ROOT: Normal diameter and appearance, measuring 3.7 cm. The ascending aorta is normal in size and measures 3.4 cm. PULMONIC VALVE: Normal thickness and mobility. No stenosis. Trivial regurgitation. PERICARDIUM: No evidence of pericardial effusion. IVC: Collapses with inspiration. Normal size. PLEURA: CONCLUSION: 1. Normal left ventricular size and systolic function. LVEF is estimated at 60 to 65%. 2. Normal right ventricular size and systolic function. 3. Normal diastolic function. 4. Mild mitral regurgitation. 5. Normal right-sided pressures. Adult Echocardiography Procedure Report Left Ventricle LVEDD (3.7 - 5.6 cm): 3.56 cm LVESD (2.2 - 4.0 cm): 1.96 cm LVIVS thickness (0.6 - 1.2 cm): 1.22 cm LVPW thickness (0.5 - 1.0 cm): 0.89 cm e': 0.11 m/s E - e': 6.16 LVOT Max Gradient: 6.14 mm[Hg], 5.62 mm[Hg] LVOT Area (cm2): 1.21 m/s Peak Velocity (LVOT): 1.24 m/s, 1.19 m/s Mean Velocity (LVOT): 0.90 m/s LVOT Diameter 1.85 cm Left Ventricular Ejection Fraction: 60-65 % Left Atrium LA Volume Index (2D A2C): 27.99 ml/m2 Left Atrium Systolic Dimension: 4.26 cm Mitral Valve MV E to A Ratio: 0.84 Mitral Valve A-Wave Peak Velocity: 0.79 m/s Mitral Valve E-Wave Peak Velocity: 0.66 m/s Right Ventricle RV Internal Diastolic Dimension: 3.23 cm Aorta AO Root Diam: 3.69 cm Ascending Ao Diam: 3.37 cm Aortic Valve AoV Area (Peak Abhijit): 2.47 cm2, 2.52 cm2 AoV Area (VTI): 2.62 cm2, 2.68 cm2 Peak Velocity(Antegrade Flow): 1.32 m/s Peak Gradient(Antegrade Flow): 7.01 mm[Hg] Mean Velocity(Antegrade Flow): 0.95 m/s Mean Gradient(Antegrade Flow): 4.13 mm[Hg] Velocity Time Integral: 26.86 cm Tricuspid Valve Peak Velocity (Regurgitant Flow): 1.90 m/s, 2.21 m/s, 2.25 m/s Pulmonic Valve Mean Gradient: 1.97 mm[Hg], 1.94 mm[Hg] Mean Velocity: 0.65 m/s, 0.65 m/s Peak Velocity: 0.95 m/s Peak Gradient: 3.80 mm[Hg], 3.47 mm[Hg] Right Atrium Right Atrium Systolic Pressure: 48.26 ml, 48.26 ml Dictated by: Amando Hudson M.D. on 04/13/2025 at 21:35 Approved by: Amando Hudson M.D. on 04/13/2025 at 21:38
== END 2025-04-13 09:03 | disposition home or self-care (01) ==
LOC: CARD 09:02
PROVIDERS: PCP Family Medicine; Visit Provider Family Medicine
DX: R07.9 Chest pain, unspecified (principal); R00.0 Tachycardia, unspecified
CPT/HCPCS: 93306

== ENCOUNTER 2025-04-30 08:10 | Outpatient (OUT) | payer BC, SELFPAY ==
--- OUTSIDE RECORDS SUMMARY | 2025-04-30 08:15 | XMS_ITS | CCD ---
Author Organization [facility] Care Team Providers Care Ladies Underwear Operator Name Role Phone SAULO, DR CAMERON Primary [...] CAMERON Consulting Unavailable Mirta Chacko Unavailable Rakesh Vernon MD Primary Care Provider [phone] RAKESH VERNON Primary Care Unavailable SHEN DENNISON Attending Unavailable Rakesh Vernon MD Primary Care Provider [phone] DAVE FRANCIS Attending Unavailable BREANN BRISCOE Attending Unavailable Kana Montilla Attending Unavailable Kana Montilla Admitting Unavailable Rakesh Vernon Primary Care Unavailable Rakesh Vernon MD Unavailable Rakesh Vernon MD Primary Care Provider [phone] Rakesh Vernon MD Primary Care Provider JONO GONZALEZ III Referring Unavailable MOON IIIJONO Attending Unavailable ELGIN PELAYO Attending Unavailable RAKESH VERNON Referring Unavailable MOON IIIJONO Attending Unavailable MOON IIIJONO Referring Unavailable RAKESH VERNON Primary Care Unavailable MOON III, SHARATH Admitting Unavailable JONO GONZALEZ III Attending Unavailable JONO GONZALEZ III Referring Unavailable Rakesh Vernon MD Primary Care Provider [phone] Rakesh Vernon MD Primary Care Provider [phone] Neelima Alvarado APRN Attending Provider Allergies Allergy Classification Reported Allergen(s) Allergy Type Date of Onset Reaction(s) Facility (4 sources) Codeine; Translations: [CODEINE] Drug Allergy 01-29-20 14 Agitated [facility] Repository (1 source) diphenhydrAMINE Drug Allergy 04-25-20 16 [facility] Repository (2 sources) Erythromycin Drug Allergy 01-29-20 14 Nausea [facility] Repository (10 sources) Penicillins; Translations: [PENICILLINS] Drug allergy (disorder) 01-29-20 14 Anaphylaxis, Rash [facility] Repository (1 source) Penicillin Drug Allergy [facility] Other (10 sources) Amoxicillin; Translations: [AMOXICILLIN] Drug Allergy 05-21-20 [facility] (11 sources) Codeine Drug Allergy 08-07-19 24 Anxiety, Other: See Comments, [facility] Work Phone: (1 source) Codeine Drug Allergy 06-04-20 [facility] Repository (1 source) Erythromycin Drug Allergy 06-04-20 [facility] Repository (1 source) Penicillins Drug allergy (disorder) 06-04-20 [facility] Repository (2 sources) Penicillins Drug Allergy 05-21-20 23 Anaphylaxis, Rash [facility] (1 source) Penicillins Drug Allergy 05-21-20 23 Anaphylaxis, Rash [facility] Medications Current Medications Medication Drug Class(es) Dates Sig (Normalized) Sig (Original) acetaminophen 325 mg / HYDROcodone bitartrate 5 mg oral tablet (3 sources) Opioid Agonist Start: 09-30-2024 End: 10-03-2024 take 1 tablet by mouth every six hours as needed for pain HYDROcodone-aceta minophen (NORCO) 5-325 mg per tablet Indications: Post-op pain Take 1 tablet by mouth every 6 hours as needed for pain for up to 3 days. 12 tablet 09/30/2024 10/03/2024 Active Start: 09-30-2024 End: 09-30-2024 1 tablet, ORAL, NEEDED, 1 dose, Starting on Sun09/30/24 at 1012, Until Sun09/30/24 at 1047, Moderate Pain (4-6) - Enteral [id number] 200 actuat albuterol 0.09 mg/actuat metered dose inhaler (11 sources) beta2-Adrenergic Agonist Start: 02-13-2024 take 2 puff(s) by inhalation every four hours as needed albuterol HFA (VENTOLIN HFA) 90 mcg/actuation inhaler Inhale 2 Puffs as instructed every 4 hours as needed. 02/13/2024 Active Start: 06-10-2020 End: 06-04-2024 take 1 puff(s) by inhalation every four hours as needed Albuterol Sulfate 90 mcg/actuation HFA aerosol inhaler Discontinued 1 - 2 PUFF INHALATION Q4H as needed for Shortness Of Breath June 10, 2020 1:00am June 04, 2024 8:43am cyclobenzaprine hydrochloride 10 mg oral tablet (1 source) Muscle Relaxant Start: 12-14-2022 take 1 tablet by mouth every eight hours as needed for pain Cyclobenzaprine HCl 10 MG 1 tablet Orally every 8 hours prn back pain for 5 days Dec, Active FLUoxetine 10 mg oral capsule (20 sources) Serotonin Reuptake Inhibitor Start: 10-23-2023 take 1 capsule by mouth once daily Fluoxetine 10 mg capsule Active 10 MG PO Daily June 04, 2024 1:00am FreeTextSig: Oral; Note: Source Status: Taking; Qty: 90 Capsule; Provider: Ginna Kirby ( ) Complies with drug therapy 30 actuat fluticasone furoate 0.1 mg/actuat / umeclidinium 0.0625 mg/actuat / vilanterol 0.025 mg/actuat dry powder inhaler (4 sources) Anticholinergi c, Corticosteroid , beta2-Adrenerg ic Agonist Start: 06-09-2024 End: 06-09-2025 take 1 puff(s) by inhalation once daily Fluticasone-Umeclidi n-Vilant (Trelegy Ellipta) 100-62.5-25 MCG/ACT aerosol powder Indications: Wheeze Inhale 1 puff Daily 1 each 06/09/2024 06/09/2025 Active 60 actuat formoterol fumarate 0.005 mg/actuat / mometasone furoate 0.1 mg/actuat metered dose inhaler (10 sources) Corticosteroid , beta2-Adrenerg ic Agonist Start: 08-12-2024 End: 11-10-2024 take 2 puff(s) by inhalation twice daily mometasone-formotero l (DULERA) 100-5 mcg/actuation inhaler Indications: Severe persistent asthma without complication (HCC) Inhale 2 Puffs as instructed two times a day. 13 g 2 08/12/2024 11/10/2024 Active levothyroxine sodium 0.125 mg oral tablet (20 sources) l-Thyroxine Start: 02-18-2025 take 1 tablet by mouth once daily Levothyroxine 125 mcg tablet Active 125 MCG PO Daily February 18, 2025 12:00am Complies with drug therapy Start: 05-11-2023 take 1 tablet by elizabeth th once daily levothyroxine (SYNTHROID) 125 mcg tablet Take 1 tablet by mouth once daily. 05/11/2023 Active Start: 06-10-2020 End: 02-18-2025 take 1 tablet by mouth once daily Levothyroxine 150 mcg tablet Discontinued 150 MCG PO Daily June 10, 2020 1:00am February 18, 2025 10:24am Levothyroxine So dium 125 MCG Oral for 90 Days Active lisinopril 10 mg oral tablet (20 sources) Angiotensin Converting Enzyme Inhibitor Start: 05-11-2023 take 1 tablet by mouth once daily Lisinopril 10 mg tablet Active 10 MG PO Daily June 04, 2024 1:00am FreeTextSig: Oral; Note: Source Status: Taking; Qty: 90 Tablet; Provider: Ginna Kirby ( ) Complies with drug therapy Lisinopril 10 MG Oral for 90 Days Active modafinil 200 mg oral tablet (20 sources) Sympathomimetic-like Agent Start: 12-31-2024 End: 02-18-2025 take 1 tablet by mouth once daily in the morning Modafinil 200 mg tablet Active 200 MG PO Daily February 18, 2025 11:45am FreeTextSig: TAKE 1 TABLET BY MOUTH IN THE MORNING daily Oral; Note: Source Status: Taking; Refills: 1; Qty: 30 Each; Provider: PENNY ACOSTA Complies with drug therapy Start: 07-02-2024 take 1 tablet by elizabeth th once daily modafinil (Provigil) 200 MG tablet Indications: Hypersomnia Take 1 tablet (200 mg) by mouth Daily 30 tablet 2 07/02/2024 Active Start: 04-19-2023 End: 12-31-2024 take 1 tablet by mouth once daily in the morning Modafinil 200 mg tablet Discontinued 200 MG PO Daily June 04, 2024 1:00am December 31, 2024 4:01pm FreeTextSig: TAKE 1 TABLET BY MOUTH IN THE MORNING daily Oral; Note: Source Status: Taking; Refills: 1; Qty: 30 Each; Provider: PENNY ACOSTA Completed/Discontinued Medications Medication Drug Class(es) Dates Sig (Normalized) Sig (Original) acetaminophen 325 mg oral tablet (2 sources) Start: 09-30-2024 End: 10-01-2024 650 mg, ORAL, NEEDED, 1 dose, Starting on Sun09/30/24 at 1012, Until Sun10/01/24 at 0303, Mild Pain (1-3) - Enteral, If ordered PRN for pain, patient/guardian may elect to receive this medication for higher pain levels INSTEAD of the opioid, if preferred: Yes Start: 09-30-2024 End: 09-30-2024 1,000 mg, ORAL, DIRECTED, Starting on Sun09/30/24 at 0800, Until Sun09/30/24 at 0959, pre o[ med, Preprocedure [id number] Nwo-Fyey-Ocr-Asb-C (1 source) Osmotic Laxative, Vitamin C Start: 05-21-2024 End: 02-18-2025 [id number] Vqr-Jkyv-Wsu-Asb-C (Plenvu) 140-9-5.2 gram powder in packet, sequential Discontinued 140 ML PO .COMPLEX 1 May 21, 2024 1:00am February 18, 2025 10:24am First does at 4pm the day before the colonoscopy; second dose at 11pm the night before the colonoscopy. calcium chloride 0.0014 meq/ml / potassium chloride 0.004 meq/ml / sodium chloride 0.103 meq/ml / sodium lactate 0.028 meq/ml injectable solution (2 sources) Start: 09-30-2024 End: 10-01-2024 take 30 mL intravenously every hour 30 mL/hr, INTRAVENOUS, CONTINUOUS, Starting on Sun09/30/24 at 1030, Until Sun10/01/24 at 0303 codeine phosphate 2 mg/ml / promethazine hydrochloride 1.25 mg/ml oral solution (1 source) Opioid Agonist, Phenothiazine Start: 06-10-2020 End: 06-04-2024 take 1 mL by mouth every six hours as needed for cough Promethazine-Codeine 6.25-10 mg/5 mL syrup Discontinued 10 ML PO Q6H as needed for cough 120 4 June 10, 2020 1:00am June 04, 2024 8:44am diphenhydrAMINE (1 source) Histamine-1 Receptor Antagonist Start: 09-30-2024 End: 10-01-2024 25 mg, INTRAVENOUS, NEEDED, 1 dose, Starting on Sun09/30/24 at 1012, Until Sun10/01/24 at 0303, Nausea/Vomiting - Second Line - Parenteral 1 ml fentaNYL 0.05 mg/ml injection (2 sources) Opioid Agonist Start: 09-30-2024 End: 10-01-2024 50 mcg, INTRAVENOUS, NEEDED, Starting on Sun09/30/24 at 1012, Until Sun10/01/24 at 0303, FIRST LINE THERAPY for moderate or severe pain, FIRST LINE THERAPY Every5-10 minutes, To a Maximum Total Dose of 250 mcg Hold for respiratory rate less than 10 USE FOR MODERATE PAIN ONLY IF PATIENT IS UNABLE TO TOLERATE ORAL THERAPY Start: 08-07-2023 End: 08-07-2023 fentaNYL PF (Sublimaze) inje ction 50 mcg hydroCHLOROthiazide 25 mg oral tablet (1 source) Thiazide Diuretic Start: 06-10-2020 End: 06-04-2024 take 1 tablet by mouth once daily Hydrochlorothiazide 25 mg tablet Discontinued 25 MG PO Daily June 10, 2020 1:00am June 04, 2024 8:44am Ketorolac Tromethamin (1 source) Start: 12-14-2022 Ketorolac Tromethamin Dec, 60 mg levoFLOXacin 750 mg oral tablet (1 source) Quinolone Antimicrobial Start: 06-10-2020 End: 06-04-2024 take 1 tablet by mouth once daily Levofloxacin 750 mg tablet Discontinued 750 MG PO Daily June 10, 2020 1:00am June 04, 2024 8:43am 1 ml meperidine hydrochloride 50 mg/ml cartridge (1 source) Opioid Agonist Start: 09-30-2024 End: 10-01-2024 12.5 mg, INTRAVENOUS, EVERY 10 MINUTES NEEDED, 2 doses, Starting on Sun09/30/24 at 1012, Until Sun10/01/24 at 0303, for shivering, May Repeat 12.5 mg in 10 minutes X1 for Continued Shivering predniSONE 10 mg oral tablet (1 source) Start: 06-10-2020 End: 06-04-2024 take 5 tablets by mouth once daily Prednisone 10 mg tablet Discontinued 50 MG PO Daily June 10, 2020 1:00am June 04, 2024 8:43am dose pack promethazine hydrochloride 12.5 mg oral tablet (1 source) Phenothiazine Start: 09-30-2024 End: 09-30-2024 take 1 dose by mouth once 12.5 mg, ORAL, ONCE, 1 dose, On Sun09/30/24 at 0800, Preprocedure Start: 09-30-2024 End: 09-30-2024 take 1 dose by mouth once 12.5 mg, ORAL, ONCE, 1 dose, On Sun09/30/24 at 0800, Preprocedure 0.25 mg, 0.5 mg dose 1.5 ml semaglutide 1.34 mg/ml pen injector (5 sources) End: 06-09-2024 semaglutide (Ozempic) 2 MG/1.5ML solution pen-injector Inject under the skin 06/09/2024 Discontinued Semaglutide (1 source) Start: 02-18-2025 End: 02-18-2025 inject 2 mg by subcutaneous injection every week Semaglutide 2 mg/dose (8 mg/3 mL) pen injector Discontinued 2 MG SUBCUT every week February 18, 2025 12:00am February 18, 2025 11:24am Problems Active Problems Problem Classification Problem Date Documented Da te Episodic/Chronic Asthma (9 sources) Uncomplicated severe persistent asthma; Translations: [Severe persistent asthma, uncomplicated] Onset: 09-15-2024 08-12-2024 Chronic Biliary tract disease (11 sources) Cholelithiasis without obstruction; Translations: [Calculus of gallbladder without cholecystitis without obstruction] Onset: 09-15-2024 09-12-2024 Episodic Disorders of lipid metabolism (8 sources) Hyperlipidemia, unspecified; Translations: [Pure hypercholesterolemia ] Onset: 08-09-2022 09-16-2024 Chronic Essential hypertension (8 sources) Hypertensive disorder; Translations: [Essential (primary) hypertension] Onset: 09-15-2024 09-16-2024 Chronic Malaise and fatigue (1 source) Other [...] encounter] 08-07-2023 Episodic Other lower respiratory disease (4 sources) Snoring; Translations: [Snoring] 04-16-2024 Episodic Other lower respiratory disease (2 sources) Wheezing; Translations: [Wheezing] 06-09-2024 Episodic Other lower respiratory disease (1 source) Dyspnea; Translations: [Shortness of breath] 08-14-2024 Episodic Other nervous system disorders (1 source) Narcolepsy; Translations: [Narcolepsy without cataplexy] 12-31-2024 Chronic Other nervous system disorders (1 source) Postoperative pain ; Translations: [Other acute postprocedural pain] 09-30-2024 Episodic Other upper respiratory disease (2 sources) Chronic rhinitis; Translations: [Chronic rhinitis] 06-09-2024 Chronic Other upper respiratory infections (2 sources) Recurrent sinusitis; Translations: [Chronic sinusitis, unspecified] 06-09-2024 Chronic Residual codes; unclassified (4 sources) Hypersomnia; Translations: [Hypersomnia, unspecified] 04-16-2024 Chronic Residual codes; unclassified (4 sources) Obstructive sleep apnea syndrome; Translations: [Obstructive sleep apnea (adult) (pediatric)] 04-16-2024 Chronic Residual codes; unclassified (7 sources) Sleep apnea; Translations: [Sleep apnea, unspecified] Onset: 09-15-2024 09-16-2024 Chronic Residual codes; unclassified (2 sources) Daytime somnolence; Translations: [Other hypersomnia] 02-18-2025 Chronic Residual codes; unclassified (2 sources) Amnesia; Translations: [Other amnesia] 04-16-2024 Episodic Residual codes; unclassified (1 source) Postoperative state; Translations: [Other specified postprocedural states] 10-16-2024 Episodic Sprains and strains (1 source) Strain of muscle, fascia and tendon of lower back, initial encounter Episodic Thyroid disorders (8 sources) Hypothyroidism, unspecified; Translations: [Hypothyroidism] Onset: 08-09-2022 09-16-2024 Chronic Unclassified (3 sources) CONTACT W/AND (SUSP) EXPOS COVID-19; Translations: [CONTACT W/AND (SUSP) EXPOS COVID-19] Onset: 01-06-2022 Unclassified (1 source) COUGH, UNSPECIFIED; Translations: [COUGH, UNSPECIFIED] Onset: 01-06-2022 Viral infection (1 source) Disease caused by 2019-nCoV; Translations: [COVID-19] 06-10-2020 Episodic Past or Other Problems Problem Classification Problem [...] Test Name Value Interpretation Reference Range Facility CNOVon 10-16-2024 CNOV Office Visit (GENSAM ) PRAVEENA DACOSTA ([id number]) 1965 F Date Time Provider Department 10/16/24 8:30 AM JONO GONZALEZ III During your visit today, we recorded the following information about you: Jono Gonzalez III, MD 10/16/2024 8:36 AM Signed This patient is 16 days post op from laparoscopic cholecystectomy. She has had no symptoms. P.E. The wounds are healing well without evidence of infection. I reviewed the pathology report with Praveena. FINAL DIAGNOSIS A. Gallbladder, cholecystectomy: - Chronic cholecystitis with cholelithiasis and cholesterolosis. Electronically signed by Darcy Hernández MD, PhD Assessment Satisfactory course Plan: Return to office PRN. Jono Gonzalez III, MD Referring Provider: JONO GONZALEZ III [[id number]] Allergies As of Date: 10/16/2024 Noted Allergy Reaction CODEINE 08/07/2023 14 - Other: See Comments 2 - Rash PENICILLINS 05/21/2023 10 - Anaphylaxis 2 - Rash Date Reviewed: 10/16/2024 Reviewed by: Karine Huntley LPN - Fully Assessed Reason for Visit: Post Op Follow Up [3947] Cmt: Pod 16 f/u after having cholecystectomy. 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] 09/15/2024 Asthma [J45.909] 09/15/2024 Encounter Status:Closed by SHWETA HSU on 10/02/24 [facility] ANES POSTPROC EVALon 025 ANES POSTPROC EVAL HNO ID: [id number] Author: GALEN MOON MD Service: Anesthesiology Author Type: Anesthesiologist Type: Anesthesia Postprocedure Evaluation Filed: 09/30/2024 10:42 Note Text: POST ANESTHESIA EVALUATION NOTE : 1965 Procedure Summary Date: 09/30/24 Room / Location: [address] Anesthesia Start: 911 Anesthesia Stop: 958 [...] Documentation SIGNATURE: Galen Moon MD PATIENT NAME: Praveena Dacosta DATE: September 30, 2024 TIME: 10:41 AM CSN: [id number] [facility] ANES PRE-OPon 09-30-2024 ANES PRE-OP HNO ID: [id number] Author: GALEN MOON MD Service: Anesthesiology Author Type: Anesthesiologist Type: Anesthesia Preprocedure Evaluation Filed: 09/30/2024 08:06 Note Text: ANESTHESIOLOGY DAY OF SURGERY NOTE : 1965 Procedure Information Date/Time: 09/30/24829 Procedure: LAPAROSCOPIC CHOLECYSTECTOMY WITH GRAMS (Gallbladder) Location: [facility] Surgeons: Jono Gonzalez III, MD Estimated body mass index is 28.25 kg/m? as calculated from the following: Height as of 09/16/24: 165.1 cm (5' 5 ). Weight as of 09/16/24: 77 kg (169 lb 12.1 oz). Most recent hematocrit and potassium results: No results found for this basename: HCT,HEMATOCRIT,K,POTA SSIUM Relevant Problems ANESTHESIA (+) Sleep apnea, unspecified [...] 0739 Pulse 72 09/30/24 0739 Resp 16 09/30/24738 Temp 36.4 ?C (97.5 ?F) 09/30/24738 SpO2 99 % 09/30/24738 Facility-Administered Medications as of 09/30/2024 Medication Dose [...] Surgery/Procedure. SIGNATURE: Galen Moon MD PATIENT NAME: Praveena Dacosta DATE: September 30, 2024 TIME: 8:06 AM CSN: [id number] [facility] ECG COMPLETEon 09-30-2024 ECG COMPLETE Ventricular Rate : 5 6 BPM Atrial Rate : 56 BPM P-R Interval : 166 ms QRS Duration : 78 ms Q-T Interval : 446 ms QTC Calculation(Bazett) : 430 ms Calculated P Marshall : 20 degrees Calculated R Marshall : 46 degrees Calculated T Marshall : 21 degrees SINUS BRADYCARDIA OTHERWISE NORMAL ECG Confirmed by JAMISON KEY DO ([id number]) on 10/05/2024 10:51:14 AM NAME : PRAVEENA DACOSTA PID : [id number] : 1965 Gender : Female Race : Unknown ORD : [id number] Procedure Date : Sep 30 2024 10:28:37 Edit Date : Oct 05 2024 10:51:15 Diagnosis: SINUS BRADYCARDIA OTHERWISE NORMAL ECG Confirmed by JAMISON KEY DO ([id number]) on 10/05/2024 10:51:14 AM Test Reason : Chest Pain Location : 145 : [facility] [id number] Overread By : JAMISON KEY DO Edited By : JAMISON KEY DO Referred By : JONO GONZALEZ III Acquired by : Logan lópez [facility] HISTORY PHYSICALon HISTORY PHYSICAL HNO ID: [id number] Author: JONO GONZALEZ III, MD Service: General [...] SIGNATURE: Jono Gonzalez III, MD PATIENT NAME: Praveena Dacosta DATE: September 30, 2024 TIME: 8:39 AM [facility] OPERATIVE NOon 09-30-2024 OPERATIVE NO HNO ID: [id number] Author: JONO GONZALEZ III, MD Service: General Surgery Author Type: Physician Type: Operative Report Filed: 09/30/2024 09:46 Note Text: OPERATIVE REPORT LOG ID: [id number] SURGERY/PROCEDURE DATE: 09/30/2024 INCISION/PROCEDURE START TIME: 9:27 AM INCISION CLOSE/PROCEDURE END TIME: 9:44 AM SURGEON: Jono Gonzalez III, MD PERSONAL BANKING ASSISTANT: Yesenia Monson PA-C OPERATION: Laparoscopic cholecystectomy (77298). ANESTHESIA: GETA and 20 mL of 0.5% [...] SIGNATURE: Jono Gonzalez III, MD PATIENT NAME: Praveena Dacosta DATE: September 30, 2024 TIME: 9:45 AM [facility] Pathology biopsy report Bobo (Tiss)on 09-30-2024 AP DISCLAIMER [facility] Comment on above: Order Comment: Speci leti Type: TISSUE SPECIMENOrdering Facility: [facility] Address: [address] [place] [address] Result Comment: Franck crystal Developed Test (LDT) Disclaimer: Performance characteristics of immunohistochemical, immunofluorescent, and chromogenic in-situ hybridization tests have been determined by the performing laboratory within [facility] Pathology and Laboratory Medicine Department ([facility], [facility], [facility], [facility], [facility], [facility], or [facility]) in a manner consistent with CLIA requirements. One or more of these tests may not have been cleared or approved by the FDA. [facility] is regulated under CLIA as qualified to perform high-complexity testing. These tests are used for clinical purposes. These should not be regarded as investigational or for research. Positive and negative controls stain appropriately. Performed By: #### 6 6121-5 ####[facility] LABCLIA [id number] [place] [address] [place] CASE REPORT [facility] Comment on above: Order Comment: Gaetano landeros Type: TISSUE SPECIMENOrdering Facility: [facility] Address: [address] [place] [address] Result Comment: [facility] Pathology Report Case: [id number] Authorizing Provider: Jono Gonzalez III, MD Collected: 09/30/2024 09:31 AM Ordering Location: Ambulatory Surgery Received: 09/30/2024 10:52 AM Pathologist: Darcy Hernández MD, PhD Specimen: Gallbladder Performed By: #### 6 6121-5 ####[facility] LABCLIA [id number] [address] STATES OF [facility] CLINICAL HISTORY Normal [facility] Comment on above: Order Comment: Speci men Type: TISSUE SPECIMENOrdering Facility: [facility] Address: [address] [place] [address] Result Comment: Pre- op diagnosis: Calculus of gallbladder without cholecystitis without obstruction [K80.20] Performed By: #### 6 6121-5 ####[facility]IA [id number] [address] FINAL DIAGNOSIS [facility] Comment on above: Order Comment: Speci men Type: TISSUE SPECIMENOrdering Facility: [facility] Address: [address] [place] [address] Result Comment: A. G allbladder, cholecystectomy: - Chronic cholecystitis with cholelithiasis and cholesterolosis. at 1550 EDT Performed By: #### 6 6121-5 ####[facility] LABCLIA [id number] [address] FINAL PERFORMING LAB Normal [facility] Comment on above: Order Comment: Speci men Type: TISSUE SPECIMENOrdering Facility: [facility] Address: [address] [place] [address] Result Comment: Diag nostic interpretation performed at: [facility], [address] [place] [address] CLIA# [id number] Metal Pourer: Cal Steen MD Performed By: #### 6 6121-5 ####[facility] [id number] [address] OF [facility] GROSS DESCRIPTION A. Gallbladder Normal [facility] Comment on above: Order Comment: Speci men Type: TISSUE SPECIMENOrdering Facility: [facility] Address: [address] [place] [address] Result Comment: Rece ived in formalin labeled gallbladder is a 6.8 [...] The cystic duct lumen is not obstructed. Train Crew Member sections are submitted in one cassette. [facility] 09/30/24 5:34 PM Gross examination performed at [facility], [address] [place] [address] Performed By: #### 6 6121-5 ####[facility] [id number] [address] OF [place] HISTORY PHYSICALon HISTORY PHYSICAL HNO ID: [id number] Author: GEOVANY MORELAND APRN.MANAGER POWER Service: ? Author Type: Nurse Practitioner Type: H&P Filed: 09/16/2024 07:53 Note Text: HISTORY AND PHYSICAL EXAMINATION SERVICE DATE: 09/16/2024 SERVICE TIME: 7:25 AM PRIMARY CARE PHYSICIAN: No primary care provider on file. REASON FOR VISIT: Praveena Dacosta is a 59 year old female [...] Today, 100% on RA Following with Dr. Pelayo, Last Office Visit: 08/14/24 History of : 2009 - had a wedge resection of her left lung for a mass. FDG avid on PET. Ultimately determined to be pleural based. Mass resected. 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 No malignancy. Had COVID infection 08/31/24, was treated at [facility]. Today she is asymptomatic, Lungs CTA, breathing [...] STOP-Bang Score: 0 (JANIS CPAP compliant ) [id number] Score: Age: <65 Sex: female CHF history: No Hypertension history: Yes Stroke/TIA/thromboemb olism history: No Vascular disease history: No Diabetes history: No [id number] Score: 2 ARISCAT Score: Age: 51-80 Preoperative [...] Garcia present: no Lip Bite Test: I Microretrognathia/Serafin ronagthia/Recessed Chin: No DENTAL Dental findings: teeth intact. [...] fevers. Neuro: No history of TIA's, stroke, DOCUMENT CONTROL COORDINATOR tumor, impaired sensorium, hemiplegia, paraplegia or quadraplegia. No neurological symptoms or problems. Respiratory: Positive for JANIS CPAP compliant, asthma , Negative for Current cough, Pneumonia within 6 weeks (date) Cardiovascular: Positive for: HTN, HLD, Negative for CAD, Chest Pain, CHF, DVT/PE GI: Positive for Symptomatic cholelithiasis, Negative for Nausea, Vomiting, Abdominal pain, Difficulty swallowing : No (more content not included)... Normal [facility] Julio 09-15-2024 KALE Telephone ([employer]) OLESYAPRAVEENA Webber ([id number]) 1965 F Date Time Provider Department 09/15/24 [...] obstruction [K80.20] Order(s):SURGICAL REQUEST - ELECTIVE (02/2020) [[id number]] Order #: [id number]: 1 Prescriptions as of 09/17/2024 - albuterol [...] Encounter Status:Closed by MARILOU ROGER on 09/17/24 [facility] CNOVon 09-12-2024 CNOV Office Visit (GENSAV ) OLESYAPRAVEENA VAZQUEZ ([id number]) 1965 F Date Time Provider Department 09/12/24 12:00 PM JONO GONZALEZ III During your visit today, we recorded the following information about you: Pulse Blood pressure Weight Height 75/minute 120/70 78.1 kg 1.676 m Jono Gonzalez III, MD 09/12/2024 10:21 AM Signed Ms. Dacosta is here today at the request of Elgin Pelayo MD for my opinion regarding abdominal pain. [...] was discussed with the patient or authorized compliance representative dealer. The patient or authorized compliance representative dealer has agreed to proceed with the sensitive [...] Booklet given. Attending note: Patient seen by Shweta Hsu RN and myself. I personally examined the patient, all components above personally confirmed, note attended where appropriate. History and exam as noted above reviewed. Agree with plan as discussed above. Jono Gonzalez III, MD cc: Referring provider Elgin Pelayo MD Allergies As of Date: 09/12/2024 Noted [...] Status:Closed by JONO GONZALEZ III on 09/12/24 [facility] HISTORY PHYSICALon HISTORY PHYSICAL HNO ID: [id number] Author: JONO GONZALEZ III, MD Service: ? Author Type: Physician Type: H&P Filed: 09/12/2024 10:21 Note Text: Ms. Dacosta is here today at the request of Elgin Pelayo MD for my opinion regarding abdominal pain. [...] was discussed with the patient or authorized compliance representative dealer. The patient or authorized compliance representative dealer has agreed to proceed with the sensitive [...] Booklet given. Attending note: Patient seen by Shweta Hsu RN and myself. I personally examined the patient, all components above personally confirmed, note attended where appropriate. History and exam as noted above reviewed. Agree with plan as discussed above. Jono Gonzalez III, MD cc: Referring provider Elgin Pelayo MD [facility] Julio 09-11-2024 KALE Telephone ([employer]) PRAVEENA DACOSTA ([id number]) 1965 F Date Time Provider Department 09/11/24 SHWETA HSU During your visit today, we recorded the following information about you: Shweta Hsu RN 09/11/2024 2:02 PM Signed Message left to call the office as patient is scheduled for cholelithiasis and I do not have any imaging for the appt . Informed that we would need this to be seen as it may not be beneficial for patient if no imaging completed. Informed I have done an update but nothing showing yet. Shweta Hsu, RONALD 09/11/2024 3:56 PM Signed Called referring providers office and spoke with staff to please send a copy of US or CT that denotes gallstones as no imaging available. Office fax number given Marquita Cali 09/12/2024 7:46 AM Signed Our office received [...] Of Date: 09/11/2024 (None) Encounter Status:Closed by SHWETA HSU on 09/11/24 [facility] Julio 08-14-2024 KALE Telephone ([facility]) OLESYAPRAVEENA Ogden ([id number]) 1965 F Date Time Provider Department 08/14/24 ELGIN PELAYO During your visit today, we recorded the following information about you: Mattie Link MA 08/14/2024 10:59 AM Signed Elign Pelayo MD P L[facility] Pulm Nurse Could we try to obtain images of CT chest 02/13/2024 from [facility] in [facility]? Thanks Mattie Link MA 08/14/2024 11:49 AM Signed Faxed image request to [facility] Confirmation received Mattie Link MA 08/19/2024 8:52 AM Signed Image has been imported into [employer] and is available to view. Elgin Pelayo MD 08/19/2024 3:09 PM Signed Reviewed images. Linear scarring is very mild. Faint bibasilar posterior ground glass which likely reflects atalectasis. Otherwise, no overt fibrosis or other parenchymal distortions. No changes to the plan we discussed. Elgin Pelayo MD Allergies As of Date: 08/14/2024 Noted [...] Status:Closed by MATTIE LINK on 08/19/24 Normal [facility] CNOVon 08-12-2024 CNOV Office Visit (PULMLO ) PRAVEENA DACOSTA ([id number]) 1965 F Date Time Provider Department 08/12/24 1:00 PM ELGIN PELAYO PULMLO During your visit today, we recorded the following information about you: Pulse Blood pressure Weight 83/minute 123/83 77.2 kg Elgin Pelayo MD 08/14/2024 10:50 AM Signed . [facility] Initial Visit Note Ms. Dacosta is a 59 year old female who presents to the [facility]. Consultation requested by Rakesh Vernon MD for an opinion regarding recurrent bronchitis. [...] getting sick again Evaluated for immunodeficiency by Barrel Raiser at [facility]. On 06/09/2024. Had PFTs. FENO 12ppb. FEV1 [...] personally reviewed by me Data Reviewed from [facility] (in addition to that noted in HPI, and Past histories above): (Data from patient's OSH mychart shown on phone) CBC: last eos 100 (05/2024) IgE: 45 (wnl) PFT: 08/01/2024 Ratio 75% (normal) FEV1 120%, FVC 125% Reported positive bronchodilator response based on FEF 25-75. RV 129% (high) TLC 133% (high) DLCOc 10 3% (normal) CT Chest: 02/13/2024 (OSH, images unavailable) - [facility] in [facility] Lung: Scattered linear densities and calcifications, chronic scarring is favored. Mild dependent atelectasis. No focal parenchymal infiltrates or significant pulmonary nodules. Pleura: No mass, effusion, pneumothorax Lizeth: Small calcified right hilar lymph nodes. Assessment and Plan: Ms. Dacosta is a 59 year old female who presents to the [facility] for evaluation of bronchitis. #Recurrent bronchitis #Asthma (more content not included)... Normal [facility] HISTORY PHYSICALon 5 HISTORY PHYSICAL HNO ID: [id number] Author: ELGIN PELAYO MD Service: ? Author Type: Physician Type: H&P Filed: 08/14/2024 10:50 Note Text: . [facility] Initial Visit Note Ms. Dacosta is a 59 year old female who presents to the [facility]. Consultation requested by Rakesh Vernon MD for an opinion regarding recurrent bronchitis. My final recommendations/evalu ation will be communicated back to the requesting physician by way of shared medical record or letter via US mail. HPI: 59 year old female with a history relevant for: Jacky thyroiditis JAINS on CPAP Never smoker Patient describes recurrent [...] getting sick again Evaluated for immunodeficiency by Barrel Raiser at [facility]. On 06/09/2024. Had PFTs. FENO 12ppb. FEV1 [...] personally reviewed by me Data Reviewed from [facility] (in addition to that noted in HPI, and Past histories above): (Data from patient's OSH mychart shown on phone) CBC: last eos 100 (05/2024) IgE: 45 (wnl) PFT: 08/01/2024 Ratio 75% (normal) FEV1 120%, FVC 125% Reported positive bronchodilator response based on FEF 25-75. RV 129% (high) TLC 133% (high) DLCOc 10 3% (normal) CT Chest: 02/13/2024 (OSH, images unavailable) - [facility] Lung: Scattered linear densities and calcifications, chronic scarring is favored. Mild dependent atelectasis. No focal parenchymal infiltrates or significant pulmonary nodules. Pleura: No mass, effusion, pneumothorax Lizeth: Small calcified right hilar lymph nodes. Assessment and Plan: Ms. Dacosta is a 59 year old female who presents to the [facility] for evaluation of bronchitis. #Recurrent bronchitis #Asthma Description of these bronchitis episodes-recurrent, only present after initial COVID infection, never associated with fever or systemic symptoms- is more consistent with exacerbation of airway inflammation/asthma. 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 Normal [facility] CBC W Auto Differential pane l (Bld)on 06-13-2024 Basophils (Bld) [#/Vol] 0.1 10*3/uL [facility] Basophils/100 WBC (Bld) 1 % Not Estab. [facility] Eosinophils (Bld) [#/Vol] 0.1 10*3/uL [facility] Eosinophils/100 WBC (Bld) 1 % Not Estab. [facility] Erythrocyte distribution width (RBC) [Ratio] 12.9 % 11.7 - 15.4 % [facility] Hematocrit (Bld) [Volume fraction] 44.5 % 34.0 - 46.6 % [facility] Hemoglobin (Bld) [Mass/Vol] 14.9 g/dL 11.1 - 15.9 g/dL [facility] Immature granulocytes (Bld) [#/Vol] 0 10*3/uL [facility] Immature granulocytes/100 WBC (Bld) 0 % Not Estab. [facility] Lymphocytes (Bld) [#/Vol] 2.7 10*3/uL [facility] Lymphocytes/100 WBC (Bld) 28 % Not Estab. [facility] MCH (RBC) [Entitic mass] 29.7 pg 26.6 - 33.0 pg [facility] MCHC (RBC) [Mass/Vol] 33.5 g/dL 31.5 - 35.7 g/dL [facility] MCV (RBC) [Entitic vol] 89 fL 79 - 97 fL [facility] Monocytes (Bld) [#/Vol] 0.5 10*3/uL [facility] Monocytes/100 WBC (Bld) 5 % Not Estab. [facility] Neutrophils (Bld) [#/Vol] 6.3 10*3/uL [facility] Neutrophils/100 WBC (Bld) 65 % Not Estab. [facility] Platelets (Bld) [#/Vol] 327 10*3/uL [facility] RBC (Bld) [#/Vol] 5.02 10*6/uL [facility] WBC (Bld) [#/Vol] 9.8 10*3/uL [facility] Comment on above: Effective June 16, 2024 profile [id number] WBC will be made non-orderable as a stand-alone order code. Diphtheria / Tetanus Antibod y Panelon 06-13-2024 C. diphtheriae Ab IA Qn (S) <0.10 Low [facility] Comment on above: Interpretation: Non-Protective <0.10 Protective >=0.10 For research use only. C. tetani toxoid IgG IA Qn 0.71 [facility] Comment on above: Interpretation: Non-Protective <0.10 Protective >=0.10 Results for this test are for research purposes only by the assay's shotblaster. The performance characteristics of this product have not been established. Results should not be used as a diagnostic procedure without confirmation of the diagnosis by another medically established diagnostic product or procedure. IgAon 06-13-2024 IgA [Mass/Vol] 346 mg/dL 87 - 352 mg/dL [facility] IgEon 06-13-2024 IgE Qn 45 [IU]/L [facility] IgGon 06-13-2024 IgG [Mass/Vol] 915 mg/dL 586 - 1602 mg/dL [facility] IgMon 06-13-2024 IgM [Mass/Vol] 123 mg/dL 26 - 217 mg/dL [facility] No Panel Informationon 06-13 Interpretation and review of laboratory results Abnormal [facility] Performed at: 01 - [address] [id number] [employer] Beauty Advisor: Red Duque PhD, Phone: [phone] [facility] Performed at: 03 - [address] [id number] [employer] Advisor: Earnest Gupta MD, Phone: [phone] [facility] PNEUM[facility] AB (23 SEROTYPE )on 06-13-2024 S. pneumoniae Romanian type 1 IgG IA (S) [Mass/Vol] <0.1 Low 1.3 - PINF ug/mL [facility] S. pneumoniae Romanian type 10A IgG IA (S) [Mass/Vol] <0.1 Low 1.3 - PINF ug/mL [facility] S. pneumoniae Romanian type 11A IgG IA (S) [Mass/Vol] <0.1 Low 1.3 - PINF ug/mL [facility] S. pneumoniae Romanian type 12F IgG IA (S) [Mass/Vol] <0.1 Low 1.3 - PINF ug/mL [facility] S. pneumoniae Romanian type 14 IgG IA (S) [Mass/Vol] <0.1 Low 1.3 - PINF ug/mL [facility] S. pneumoniae Romanian type 15B IgG IA (S) [Mass/Vol] <0.2 Low 1.3 - PINF ug/mL [facility] S. pneumoniae Romanian type 17F IgG IA (S) [Mass/Vol] 0.7 ug/mL Low 1.3 - PINF ug/mL [facility] S. pneumoniae Romanian type 18C IgG IA (S) [Mass/Vol] <0.1 Low 1.3 - PINF ug/mL [facility] S. pneumoniae Romanian type 19A IgG IA (S) [Mass/Vol] 0.5 ug/mL Low 1.3 - PINF ug/mL [facility] S. pneumoniae Romanian type 19F IgG IA (S) [Mass/Vol] 0.3 ug/mL Low 1.3 - PINF ug/mL [facility] S. pneumoniae Romanian type 2 IgG IA (S) [Mass/Vol] <0.2 Low 1.3 - PINF ug/mL [facility] S. pneumoniae Romanian type 20A IgG IA (S) [Mass/Vol] 0.2 ug/mL Low 1.3 - PINF ug/mL [facility] S. pneumoniae Romanian type 22F IgG IA (S) [Mass/Vol] 0.1 ug/mL Low 1.3 - PINF ug/mL [facility] S. pneumoniae Romanian type 23F IgG IA (S) [Mass/Vol] <0.1 Low 1.3 - PINF ug/mL [facility] S. pneumoniae Romanian type 3 IgG IA (S) [Mass/Vol] <0.1 Low 1.3 - PINF ug/mL [facility] S. pneumoniae Romanian type 33F IgG IA (S) [Mass/Vol] 0.8 ug/mL Low 1.3 - PINF ug/mL [facility] Comment on above: *This test was devel oped and its performance characteristics determined by [employer]. It has not been cleared or approved by the U.S. Food and Drug Administration. FLAG Interpretation: A = Abnormal, H = High, L = Low S. pneumoniae Romanian type 4 IgG IA (S) [Mass/Vol] <0.1 Low 1.3 - PINF ug/mL [facility] S. pneumoniae Romanian type 5 IgG IA (S) [Mass/Vol] 0.7 ug/mL Low 1.3 - PINF ug/mL [facility] S. pneumoniae Romanian type 6B IgG IA (S) [Mass/Vol] <0.1 Low 1.3 - PINF ug/mL [facility] S. pneumoniae Romanian type 7F IgG IA (S) [Mass/Vol] <0.1 Low 1.3 - PINF ug/mL [facility] S. pneumoniae Romanian type 8 IgG IA (S) [Mass/Vol] 10.7 ug/mL 1.3 - PINF ug/mL [facility] S. pneumoniae Romanian type 9N IgG IA (S) [Mass/Vol] <0.1 Low 1.3 - PINF ug/mL [facility] S. pneumoniae Romanian type 9V IgG IA (S) [Mass/Vol] <0.1 Low 1.3 - PINF ug/mL [facility] Performed at: [employer] [facility] [address], [address] [id number] [employer] Advisor: EBER Gutierrez PhDBC, Phone: [phone] [facility] Multiple [facility]-11-2024 [facility] CBC W Auto Differential pane l (Bld)on 08-07-2023 Basophils (Bld) [#/Vol] 0.03 10*3/uL [facility] Basophils/100 WBC (Bld) 0.4 % 0.0 - 2.0 % [facility] Eosinophils (Bld) [#/Vol] 0.06 10*3/uL [facility] Eosinophils/100 WBC (Bld) 0.9 % 0.0 - 6.0 % [facility] Erythrocyte distribution width (RBC) [Ratio] 13.2 % 11.5 - 14.5 % [facility] Hematocrit (Bld) [Volume fraction] 41.6 % 36.0 - 46.0 % [facility] Hemoglobin (Bld) [Mass/Vol] 13.8 g/dL 12.0 - 16.0 g/dL [facility] Immature granulocytes (Bld) [#/Vol] 0.07 10*3/uL [facility] Immature granulocytes/100 WBC (Bld) 1.0 % High 0.0 - 0.9 % [facility] Comment on above: Immature Granulocyte Count (IG) includes promyelocytes, myelocytes and metamyelocytes but does not include bands. Percent differential counts (%) should be interpreted in the context of the absolute cell counts (cells/UL). Interpretation and review of laboratory results Abnormal [facility] Lymphocytes (Bld) [#/Vol] 2.17 10*3/uL [facility] Lymphocytes/100 WBC (Bld) 32.1 % 13.0 - 44.0 % [facility] MCH (RBC) [Entitic mass] 29.6 pg 26.0 - 34.0 pg [facility] MCHC (RBC) [Mass/Vol] 33.2 g/dL 32.0 - 36.0 g/dL [facility] MCV (RBC) [Entitic vol] 89 fL 80 - 100 fL [facility] Monocytes (Bld) [#/Vol] 0.32 10*3/uL [facility] Monocytes/100 WBC (Bld) 4.7 % 2.0 - 10.0 % [facility] Neutrophils (Bld) [#/Vol] 4.12 10*3/uL [facility] Comment on above: Percent differential counts (%) should be interpreted in the context of the absolute cell counts (cells/uL). Neutrophils/100 WBC (Bld) 60.9 % 40.0 - 80.0 % [facility] Nucleated RBC/100 WBC (Bld) [Ratio] 0.0 % [facility] Platelets (Bld) [#/Vol] 234 10*3/uL [facility] RBC (Bld) [#/Vol] 4.66 10*6/uL [facility] WBC (Bld) [#/Vol] 6.8 10*3/uL [facility] Basophils (Bld) [#/Vol] 0.03 x10*3/uL Normal 0.00-0.10 [facility] Comment on above: Performed By: #### 5 7021-8 #### MIK FREITAS ([id number]) [facility] ([facility]) [address] [place] [address] Basophils/100 WBC (Bld) 0.4 % Normal 0.0-2.0 [facility] Comment on above: Performed By: #### 5 7021-8 #### MIK FREITAS ([id number]) [facility] ([facility]) [address] [place] [address] Eosinophils (Bld) [#/Vol] 0.06 x10*3/uL Normal 0.00-0.70 [facility] Comment on above: Performed By: #### 5 7021-8 #### MIK FREITAS ([id number]) [facility] ([facility]) [id number] [place] [address] Eosinophils/100 WBC (Bld) 0.9 % Normal 0.0-6.0 [facility] Comment on above: Performed By: #### 5 7021-8 #### MIK FREITAS ([id number]) [facility] ([facility]) [id number] [place] [address] Erythrocyte distribution width (RBC) [Ratio] 13.2 % Normal 11.5-14.5 [facility] Comment on above: Performed By: #### 5 7021-8 #### MIK FREITAS ([id number]) [facility] ([facility]) [address] [place] [address] Hematocrit (Bld) [Volume fraction] 41.6 % Normal 36.0-46.0 [facility] Comment on above: Performed By: #### 5 7021-8 #### MIK FREITAS ([id number]) [facility] ([facility]) [address] [place] [address] Hemoglobin (Bld) [Mass/Vol] 13.8 g/dL Normal 12.0-16.0 [facility] Comment on above: Performed By: #### 5 7021-8 #### MIK FREITAS ([id number]) [facility] ([facility]) [address] [place] [address] Immature granulocytes (Bld) [#/Vol] 0.07 x10*3/uL Normal 0.00-0.70 [facility] Comment on above: Performed By: #### 5 7021-8 #### MIK FREITAS ([id number]) [facility] ([facility]) [address] [place] [address] Immature granulocytes/100 WBC (Bld) 1.0 % High 0.0-0.9 [facility] Comment on above: Result Comment: Azul ture Granulocyte Count (IG) includes promyelocytes, myelocytes and metamyelocytes but does not include bands. Percent differential counts (%) should be interpreted in the context of the absolute cell counts (cells/UL). Performed By: #### 5 7021-8 #### MIK FREITAS ([id number]) [facility] ([facility]) [address] [place] [address] Lymphocytes (Bld) [#/Vol] 2.17 x10*3/uL Normal 1.20-4.80 [facility] Comment on above: Performed By: #### 5 7021-8 #### MIK FREITAS ([id number]) [facility] ([facility]) [id number] [place] [address] Lymphocytes/100 WBC (Bld) 32.1 % Normal 13.0-44.0 [facility] Comment on above: Performed By: #### 5 7021-8 #### MIK FREITAS ([id number]) [facility] ([facility]) [address] [place] [address] MCH (RBC) [Entitic mass] 29.6 pg Normal 26.0-34.0 [facility] Comment on above: Performed By: #### 5 7021-8 #### MIK FREITAS ([id number]) [facility] ([facility]) [address] [place] [address] MCHC (RBC) [Mass/Vol] 33.2 g/dL Normal 32.0-36.0 [facility] Comment on above: Performed By: #### 5 7021-8 #### MIK FREITAS ([id number]) [facility] ([facility]) [address] [place] [address] MCV (RBC) [Entitic vol] 89 fL Normal 80-100 [facility] Comment on above: Performed By: #### 5 7021-8 #### MIK FREITAS ([id number]) [facility] ([facility]) [address] [place] [address] Monocytes (Bld) [#/Vol] 0.32 x10*3/uL Normal 0.10-1.00 [facility] Comment on above: Performed By: #### 5 7021-8 #### MIK FREITAS ([id number]) [facility] ([facility]) [address] [place] [address] Monocytes/100 WBC (Bld) 4.7 % Normal 2.0-10.0 [facility] Comment on above: Performed By: #### 5 7021-8 #### MIK FREITAS ([id number]) [facility] ([facility]) [address] [place] [address] Neutrophils (Bld) [#/Vol] 4.12 x10*3/uL Normal 1.20-7.70 [facility] Comment on above: Result Comment: Perc ent differential counts (%) should be interpreted in the context of the absolute cell counts (cells/uL). Performed By: #### 5 7021-8 #### MIK FREITAS ([id number]) [facility] ([facility]) [address] [place] [address] Neutrophils/100 WBC (Bld) 60.9 % Normal 40.0-80.0 [facility] Comment on above: Performed By: #### 5 7021-8 #### MIK FREITAS ([id number]) [facility] ([facility]) [address] [place] [address] Nucleated RBC/100 WBC (Bld) [Ratio] 0.0 /100 WBCs Normal 0.0-0.0 [facility] Comment on above: Performed By: #### 5 7021-8 #### MIK FREITAS ([id number]) [facility] ([facility]) [address] [place] [address] Platelets (Bld) [#/Vol] 234 x10*3/uL Normal 150-450 [facility] Comment on above: Performed By: #### 5 7021-8 #### MIK FREITAS ([id number]) [facility] ([facility]) [address] [place] [address] RBC (Bld) [#/Vol] 4.66 x10*6/uL Normal 4.00-5.20 [facility] Comment on above: Performed By: #### 5 7021-8 #### MIK FREITAS ([id number]) [facility] ([facility]) [address] [place] [address] WBC (Bld) [#/Vol] 6.8 x10*3/uL Normal 4.4-11.3 [facility] Comment on above: Performed By: #### 5 7021-8 #### MIK FREITAS ([id number]) [facility] ([facility]) [address] [place] [address] CT CERVICAL SPINE WO IV CONT RASTon 08-07-2023 CT CERVICAL SPINE WO IV CONTRAST Interpreted By: Willy Anderson, STUDY: CT CERVICAL SPINE WO IV CONTRAST; 08/07/2023 9:01 am INDICATION: Signs/Symptoms:Mechan ical fall, no thinners, positive LOC. COMPARISON: None. ACCESSION NUMBER(S): [id number] ORDERING CLINICIAN: NEELIMA PERALTA TECHNIQUE: Axial CT images of the cervical [...] Willy Anderson 08/07/2023 9:41 AM Dictation workstation: [id number] [facility] CT Cervical spine WO contras ton 08-07-2023 No evidence for an acute fracture or subluxation of the cervical spine. MACRO: None Signed by: Willy Anderson 08/07/2023 9:41 AM Dictation workstation: [id number] [facility] Interpreted By: Willy Anderson, STUDY: CT CERVICAL SPINE WO IV CONTRAST; 08/07/2023 9:01 am INDICATION: Signs/Symptoms:Mechan ical fall, no thinners, positive LOC. COMPARISON: None. ACCESSION NUMBER(S): [id number] ORDERING CLINICIAN: NEELIMA PERALTA TECHNIQUE: Axial CT images of the cervical [...] thinners, positive LOC. COMPARISON: None. ACCESSION NUMBER(S): [id number] ORDERING CLINICIAN: NEELIMA PERALTA TECHNIQUE: Axial CT images of the cervical [...] Willy Anderson 08/07/2023 9:41 AM Dictation workstation: [id number] [facility] Work Phone: [facility] Work Phone: CT HEAD WO IV CONTRASTon CT HEAD WO IV CONTRAST Interpreted By: Willy Anderson, STUDY: CT HEAD WO IV CONTRAST; 08/07/2023 9:01 am INDICATION: Signs/Symptoms:Mechan ical fall, no thinners, positive LOC. COMPARISON: None. ACCESSION NUMBER(S): [id number] ORDERING CLINICIAN: NEELIMA PERALTA TECHNIQUE: Noncontrast axial CT scan of head was performed. FINDINGS: Parenchyma: There is no intracranial hemorrhage. The elise-white differentiation is intact. There is no mass [...] Willy Anderson 08/07/2023 9:38 AM Dictation workstation: [id number] [facility] CT Head WO contraston 2023 No acute intracrania l hemorrhage, mass effect, or calvarial fracture. MACRO: None Signed by: Willy Anderson 08/07/2023 9:38 AM Dictation workstation: [id number] Interpreted By: Willy Anderson, STUDY: CT HEAD WO IV CONTRAST; 08/07/2023 9:01 am INDICATION: Signs/Symptoms:Mechan ical fall, no thinners, positive LOC. COMPARISON: None. ACCESSION NUMBER(S): [id number] ORDERING CLINICIAN: NEELIMA PERALTA TECHNIQUE: Noncontrast axial CT scan of head was performed. FINDINGS: Parenchyma: There is no intracranial hemorrhage. The elise-white differentiation is intact. There is no mass [...] thinners, positive LOC. COMPARISON: None. ACCESSION NUMBER(S): [id number] ORDERING CLINICIAN: NEELIMA PERALTA TECHNIQUE: Noncontrast axial CT scan of head was performed. FINDINGS: Parenchyma: There is no intracranial hemorrhage. The elise-white differentiation is intact. There is no mass [...] Willy Anderson 08/07/2023 9:38 AM Dictation workstation: [id number] [facility] Work Phone: CT Head WO contrastOrdered B y: Willy Anderson on 08-07-2023 [facility] Work Phone: CT THORACIC SPINE WO IV CONT RASTon 08-07-2023 CT THORACIC SPINE WO IV CONTRAST Interpreted By: Willy Anderson, STUDY: CT THORACIC SPINE WO IV CONTRAST; 08/07/2023 9:01 am INDICATION: Signs/Symptoms:Mechan ical fall, no thinners, positive LOC, thoracic spinal tenderness. COMPARISON: None. ACCESSION NUMBER(S): [id number] ORDERING CLINICIAN: NEELIMA PERALTA TECHNIQUE: Axial CT images of the thoracic [...] Willy Anderson 08/07/2023 9:48 AM Dictation workstation: [id number] [facility] CT Thoracic spine WO contras ton 08-07-2023 No acute osseous abnormality of the thoracic spine. Mild chronic appearing anterior wedging of a few scattered thoracic vertebral bodies as above. MACRO: None Signed by: Willy Anderson 08/07/2023 9:48 AM Dictation workstation: [id number] [facility] Interpreted By: Willy Anderson, STUDY: CT THORACIC SPINE WO IV CONTRAST; 08/07/2023 9:01 am INDICATION: Signs/Symptoms:Mechan ical fall, no thinners, positive LOC, thoracic spinal tenderness. COMPARISON: None. ACCESSION NUMBER(S): [id number] ORDERING CLINICIAN: NEELIMA PERALTA TECHNIQUE: Axial CT images of the thoracic [...] thoracic spinal tenderness. COMPARISON: None. ACCESSION NUMBER(S): [id number] ORDERING CLINICIAN: NEELIMA PERALTA TECHNIQUE: Axial CT images of the thoracic [...] Willy Anderson 08/07/2023 9:48 AM Dictation workstation: [id number] [facility] Work Phone: [facility] Work Phone: Coagulation tissue factor in ducedon 08-07-2023 PT Coag (PPP) [Time] 11.1 s Normal 9.8-12.8 [facility] Comment on above: Performed By: #### 5 902-2 #### MIK FREITAS ([id number]) [facility] ([facility]) [address] [place] [address] Comprehensive metabolic 2000 panelon 08-07-2023 Albumin BCP dye [Mass/Vol] 4.7 g/dL 3.4 - 5.0 g/dL [facility] ALP [Catalytic activity/Vol] 61 U/L 33 - 110 U/L [facility] ALT With P-5'-P [Catalytic activity/Vol] 27 U/L 7 - 45 U/L [facility] Comment on above: Patients treated wit h Sulfasalazine may generate falsely decreased results for ALT. Anion gap [Moles/Vol] 11 mmol/L 10 - 20 mmol/L [facility] AST With P-5'-P [Catalytic activity/Vol] 23 U/L 9 - 39 U/L [facility] Bilirubin [Mass/Vol] 0.5 mg/dL 0.0 - 1 .2 mg/dL [facility] Calcium [Mass/Vol] 9.4 mg/dL 8.6 - 10. 3 mg/dL [facility] Chloride [Moles/Vol] 101 mmol/L 98 - 10 7 mmol/L [facility] CO2 [Moles/Vol] 28 mmol/L 21 - 32 mmol/L [facility] Creatinine [Mass/Vol] 0.75 mg/dL 0.50 - 1.05 mg/dL [facility] eGFR - PINF [facility] Comment on above: Calculations of danielle mated GFR are performed using the 2020 CKD-EPI Study Refit equation without the race variable for the IDMS-Traceable creatinine methods. https://jasn.asnjournals.org/content//ASN.3205641 988 Glucose [Mass/Vol] 108 mg/dL High 74 - 99 mg/dL [facility] Interpretation and review of laboratory results Abnormal [facility] Potassium [Moles/Vol] 3.8 mmol/L 3.5 - 5.3 mmol/L [facility] Protein [Mass/Vol] 7.8 g/dL 6.4 - 8.2 g/dL [facility] Sodium [Moles/Vol] 136 mmol/L 136 - 145 mmol/L [facility] Urea nitrogen [Mass/Vol] 13 mg/dL 6 - 23 mg/dL [facility] Albumin BCP dye [Mass/Vol] 4.7 g/dL Normal 3.4-5.0 [facility] Comment on above: Performed By: #### 2 4323-8 #### MIK FREITAS ([id number]) [facility] ([facility]) [address] [place] [address] ALP [Catalytic activity/Vol] 61 U/L Normal 33-110 [facility] Comment on above: Performed By: #### 2 4323-8 #### MIK FREITAS ([id number]) [facility] ([facility]) [address] [place] [address] ALT With P-5'-P [Catalytic activity/Vol] 27 U/L Normal 7-45 [facility] Comment on above: Result Comment: [place] ents treated with Sulfasalazine may generate falsely decreased results for ALT. Performed By: #### 2 4323-8 #### MIK FREITAS ([id number]) [facility] ([facility]) [address] [place] [address] Anion gap [Moles/Vol] 11 mmol/L Normal 10-20 [facility] Comment on above: Performed By: #### 2 4323-8 #### MIK FREITAS ([id number]) [facility] ([facility]) [address] [place] [address] AST With P-5'-P [Catalytic activity/Vol] 23 U/L Normal 9-39 [facility] Comment on above: Performed By: #### 2 4323-8 #### MIK FREITAS ([id number]) [facility] ([facility]) [address] [place] [address] Bilirubin [Mass/Vol] 0.5 mg/dL Normal 0.0-1.2 [facility] Comment on above: Performed By: #### 2 4323-8 #### MIK FREITAS ([id number]) [facility] ([facility]) [address] [place] [address] Calcium [Mass/Vol] 9.4 mg/dL Normal 8.6-10.3 [facility] Comment on above: Performed By: #### 2 4323-8 #### MIK FREITAS ([id number]) [facility] ([facility]) [address] [place] [address] Chloride [Moles/Vol] 101 mmol/L Normal 98-107 [facility] Comment on above: Performed By: #### 2 4323-8 #### MIK FREITAS ([id number]) [facility] ([facility]) [address] [place] [address] CO2 [Moles/Vol] 28 mmol/L Normal 21-32 [facility] Comment on above: Performed By: #### 2 4323-8 #### MIK FREITAS ([id number]) [facility] ([facility]) [address] [place] [address] Creatinine [Mass/Vol] 0.75 mg/dL Normal 0.50-1.05 [facility] Comment on above: Performed By: #### 2 4323-8 #### MIK FREITAS ([id number]) [facility] ([facility]) [address] [place] [address] GFR/1.73 sq M.predicted MDRD (S/P/Bld) [Vol rate/Area] mL/min/{1.73_m2} Normal >60 [facility] Comment on above: Result Comment: Calc ulations of estimated GFR are performed using the 2020 CKD-EPI Study Refit equation without the race variable for the IDMS-Traceable creatinine methods. https://jasn.asnjournals.org/content//ASN.0333528 988 Performed By: #### 2 4323-8 #### MIK FREITAS ([id number]) [facility] ([facility]) [address] [place] [address] Glucose [Mass/Vol] 108 mg/dL High 74-99 [facility] Comment on above: Performed By: #### 2 4323-8 #### MIK FREITAS ([id number]) [facility] ([facility]) [address] [place] [address] Potassium [Moles/Vol] 3.8 mmol/L Normal 3.5-5.3 [facility] Comment on above: Performed By: #### 2 4323-8 #### MIK FREITAS ([id number]) [facility] ([facility]) [address] [place] [address] Protein [Mass/Vol] 7.8 g/dL Normal 6.4-8.2 [facility] Comment on above: Performed By: #### 2 4323-8 #### MIK FREITAS ([id number]) [facility] ([facility]) [address] [place] [address] Sodium [Moles/Vol] 136 mmol/L Normal 136-145 [facility] Comment on above: Performed By: #### 2 4323-8 #### MIK FREITAS ([id number]) [facility] ([facility]) [address] [place] [address] Urea nitrogen [Mass/Vol] 13 mg/dL Normal 6-23 [facility] Comment on above: Performed By: #### 2 4323-8 #### MIK FREITAS ([id number]) [facility] ([facility]) [address] [place] [address] ECG 12-LEADon 08-07-2023 ECG 12-LEAD Ventricular Rate 73 Atrial Rate 73 P-R Interval 168 QRS Duration 70 Q-T Interval 392 QTC Calculation(Bazett) 431 P Marshall 32 R Marshall 43 T Marshall 24 QRS Count 12 Q Onset 225 P Onset 141 P Offset 194 T Offset 421 QTC Fredericia 418 Diagnosis Normal sinus rhythm Septal infarct , age undetermined Abnormal ECG No previous ECGs available Confirmed by Josie Anthony ([id number]) on 08/29/2023 9:59:19 PM Normal [facility] No Panel Informationon 08-07 Radiology Study observation (narrative) [facility] Work Phone: PT Coag (PPP) [Time]on 08-07 INR Coag (PPP) [Relative time] 1.0 {INR} 0.9 - 1.1 [facility] Interpretation and review of laboratory results Normal [facility] INR Coag (PPP) [Relative time] 1.0 Normal 0.9-1.1 [facility] Comment on above: Performed By: #### 5 902-2 #### MIK FREITAS ([id number]) [facility] ([facility]) [address] [place] [address] Protime-INRon 08-07-2023 PT Coag (PPP) [Time] 11.1 s [facility] CBC AUTO DIFFon 08-08-2022 BASO # 0.0 103/ul Normal 0.0-0.1 [facility] Comment on above: Performed By: #### C BC #### [facility] [address] [place] [address] Dr. Enrique Parkinson Basophils/100 WBC (Bld) 0.6 % Normal 0.2-2.0 [facility] Comment on above: Performed By: #### C BC #### [facility] [address] [place] [address] Dr. Enrique Parkinson EO # 0.1 103/ul Normal 0.0-0.7 [facility] Comment on above: Performed By: #### C BC #### [facility] [address] [place] [address] Dr. Enrique Parkinson Eosinophils/100 WBC (Bld) 0.9 % Normal 0.9-7.0 [facility] Comment on above: Performed By: #### C BC #### [facility] [address] [place] [address] Dr. Enrique Parkinson Erythrocyte distribution width (RBC) [Ratio] 12.9 % Normal 11.0-15.0 [facility] Comment on above: Performed By: #### C BC #### [facility] [address] [place] [address] Dr. Enrique Parkinson Hematocrit (Bld) [Volume fraction] 41.5 % Normal 36.0-48.0 [facility] Comment on above: Performed By: #### C BC #### [facility] [address] [place] [address] Dr. Enrique Parkinson Hemoglobin (Bld) [Mass/Vol] 14.3 g/dL Normal 12.0-16.0 [facility] Comment on above: Performed By: #### C BC #### [facility] [address] [place] [address] Dr. Enrique Parkinson IG # 0.02 10e3/ul Normal 0.00-0.03 [facility] Comment on above: Performed By: #### C BC #### [facility] [address] [place] [address] Dr. Enrique Parkinson IG % 0.3 % Normal 0.0-0.5 [facility] Comment on above: Performed By: #### C BC #### [facility] [address] [place] [address] Dr. Enrique Parkinson LYMPH # 1.8 103/ul Normal 1.2-3.8 [facility] Comment on above: Performed By: #### C BC #### [facility] [address] [place] [address] Dr. Enrique Parkinson Lymphocytes/100 WBC (Bld) 25.9 % Normal 20.5-60.0 [facility] Comment on above: Performed By: #### C BC #### [facility] [address] [place] [address] Dr. Enrique Parkinson MANUAL DIFF REQ NO Normal [facility] Comment on above: Performed By: #### C BC #### [facility] [address] [place] [address] Dr. Enrique Parkinson MCH (RBC) [Entitic mass] 30.2 pg Normal 26.7-34.0 [facility] Comment on above: Performed By: #### C BC #### [facility] [address] [place] [address] Dr. Enrique Parkinson MCHC (RBC) [Mass/Vol] 34.5 g/dL Normal 29.9-35.2 [facility] Comment on above: Performed By: #### C BC #### [facility] [address] [place] [address] Dr. Enrique Parkinson MCV (RBC) [Entitic vol] 87.6 fL Normal 81.0-99.0 [facility] Comment on above: Performed By: #### C BC #### [facility] [address] [place] [address] Dr. Enrique Parkinson MONO # 0.4 103/ul Normal 0.3-0.8 [facility] Comment on above: Performed By: #### C BC #### [facility] [address] [place] [address] Dr. Enrique Parkinson Monocytes/100 WBC (Bld) 5.1 % Normal 1.7-12.0 [facility] Comment on above: Performed By: #### C BC #### [facility] [address] [place] [address] Dr. Enrique Parkinson NEUT # 4.6 103/ul Normal 1.4-6.5 [facility] Comment on above: Performed By: #### C BC #### [facility] [address] [place] [address] Dr. Enrique Parkinson Neutrophils/100 WBC (Bld) 67.2 % Normal 43.0-75.0 [facility] Comment on above: Performed By: #### C BC #### [facility] [address] [place] [address] Dr. Enrique Parkinson Platelet mean volume (Bld) [Entitic vol] 9.2 fL Critically low 9.5-13.5 [facility] Comment on above: Performed By: #### C BC #### [facility] [address] [place] [address] Dr. Enrique Parkinson PLT 246 103/ul Normal 150-450 [facility] Comment on above: Performed By: #### C BC #### [facility] [address] [place] [address] Dr. Enrique Parkinson RBC 4.74 106/ul Normal 4.20-5.40 [facility] Comment on above: Performed By: #### C BC #### [facility] [address] [place] [address] Dr. Enrique Parkinson WBC 6.9 103/ul Normal 4.0-11.0 [facility] Comment on above: Performed By: #### C BC #### [facility] [address] [place] [address] Dr. Enrique Parkinson FREE T3on 08-08-2022 FREE T3 2.43 pg/mlL Normal 2.18-3.98 [facility] Comment on above: Performed By: #### T 4, TSH, LIPID, CMP, FT3 #### [facility] [address] [place] [address] Dr. Enrique Parkinson GLYCOHEMOGLOBIN A1Con 2022 ADA RECOMMENDATION SEE BELOW Normal [facility] Comment on above: Result Comment: ADA RECOMMENDED LIMIT 4.0 - 6.0 ADA THERAPEUTIC TARGET < 7.0 ACTION SUGGESTED > 7.0 Performed By: #### A 1C #### [facility] [address] [place] [address] Dr. Enrique Parkinson Glucose [Mass/Vol] 114 mg/dL Normal [facility] Comment on above: Performed By: #### A 1C #### [facility] [address] [place] [address] Dr. Enrique Parkinson HbA1c (Bld) [Mass fraction] 5.6 % Normal 4.5-6.2 [facility] Comment on above: Performed By: #### A 1C #### [facility] [address] [place] [address] Dr. Enrique Parkinson LIPID PROFILEon 08-08-2022 CHOL-HDL RATIO NORM SEE BELOW Normal [facility] Comment on above: Result Comment: 3.3 - 4.4 LOW RISK 4.4 - 7.1 AVERAGE RISK 7.1 - 11.0 MODERATE RISK >11.0 HIGH RISK Performed By: #### T 4, TSH, LIPID, CMP, FT3 #### [facility] [address] [place] [address] Dr. Enrique Parkinson Cholesterol [Mass/Vol] 241 mg/dL Critically high <=200 [facility] Comment on above: Performed By: #### T 4, TSH, LIPID, CMP, FT3 #### [facility] [address] [address] [address] Enrique Parkinson Cholesterol in HDL [Mass/Vol] 45 mg/dL Normal 40-60 [facility] Comment on above: Performed By: #### T 4, TSH, LIPID, CMP, FT3 #### [facility] [address] [address] [address] Enrique Parkinson Cholesterol in LDL [Mass/Vol] 131.2 mg/dL Normal [facility] Comment on above: Performed By: #### T 4, TSH, LIPID, CMP, FT3 #### [facility] [address] [place] [address] Dr. Enrique Parkinson Cholesterol.total/Ch olesterol in HDL [Mass ratio] 5.4 {ratio} Normal [facility] Comment on above: Performed By: #### T 4, TSH, LIPID, CMP, FT3 #### [facility] [address] [address] [address] Enrique Parkinson HDL NORMAL > or = 60 mg/dl - LO W CARDIOVASCULAR RISK <40 mg/dl - HIGH CARDIOVASCULAR RISK Normal [facility] Comment on above: Performed By: #### T 4, TSH, LIPID, CMP, FT3 #### [facility] [address] [address] [address] Enrique Parkinson LDL CALC NORMAL SEE BELOW Normal [facility] Comment on above: Result Comment: <100 mg/dl OPTIMAL 100 - 129 mg/dl NEAR OR ABOVE OPTIMAL 130 - 159 mg/dl BORDERLINE HIGH 160 - 189 mg/dl HIGH >190 mg/dl VERY HIGH Performed By: #### T 4, TSH, LIPID, CMP, FT3 #### [facility] [address] [place] [address] Dr. Enrique Parkinson Triglyceride [Mass/Vol] 324 mg/dL Critically high <=150 [facility] Comment on above: Performed By: #### T 4, TSH, LIPID, CMP, FT3 #### [facility] [address] [place] [address] Dr. Enrique Parkinson VLDL CALC 64.8 mg/dL Normal [facility] Comment on above: Performed By: #### T 4, TSH, LIPID, CMP, FT3 #### [facility] [address] [place] [address] Dr. Enrique Parkinson PROF 14(COMP METB)on 023 Albumin [Mass/Vol] 4.1 g/dL Normal 3.4-5.0 [facility] Comment on above: Performed By: #### T 4, TSH, LIPID, CMP, FT3 #### [facility] [address] [place] [address] Dr. Enrique Parkinson Albumin/Globulin [Mass ratio] 1.1 {ratio} Normal [facility] Comment on above: Performed By: #### T 4, TSH, LIPID, CMP, FT3 #### [facility] [address] [place] [address] Dr. Enrique Parkinson ALP [Catalytic activity/Vol] 83 U/L Normal 46-116 [facility] Comment on above: Performed By: #### T 4, TSH, LIPID, CMP, FT3 #### [facility] [address] [place] [address] Dr. Enrique Parkinson ALT [Catalytic activity/Vol] 28 U/L Normal 14-59 [facility] Comment on above: Performed By: #### T 4, TSH, LIPID, CMP, FT3 #### [facility] [address] [place] [address] Dr. Enrique Parkinson Anion gap [Moles/Vol] 12.3 mmol/L Normal [facility] Comment on above: Performed By: #### T 4, TSH, LIPID, CMP, FT3 #### [facility] [address] [place] [address] Dr. Enrique Parkinson AST [Catalytic activity/Vol] 20 U/L Normal 15-37 [facility] Comment on above: Performed By: #### T 4, TSH, LIPID, CMP, FT3 #### [facility] [address] [place] [address] Dr. Enrique Parkinson Bilirubin [Mass/Vol] 0.4 mg/dL Normal 0.2-1.0 [facility] Comment on above: Performed By: #### T 4, TSH, LIPID, CMP, FT3 #### [facility] [address] [place] [address] Dr. Enrique Parkinson Calcium [Mass/Vol] 9.2 mg/dL Normal 8.5-10.1 [facility] Comment on above: Performed By: #### T 4, TSH, LIPID, CMP, FT3 #### [facility] [address] [place] [address] Dr. Enrique Parkinson Chloride [Moles/Vol] 101 mmol/L Normal 98-107 [facility] Comment on above: Performed By: #### T 4, TSH, LIPID, CMP, FT3 #### [facility] [address] [place] [address] Dr. Enrique Parkinson CO2 [Moles/Vol] 29.4 mmol/L Normal 21.0-32.0 [facility] Comment on above: Performed By: #### T 4, TSH, LIPID, CMP, FT3 #### [facility] [address] [place] [address] Dr. Enrique Parkinson Creatinine [Mass/Vol] 0.80 mg/dL Normal 0.55-1.02 [facility] Comment on above: Performed By: #### T 4, TSH, LIPID, CMP, FT3 #### [facility] [address] [place] [address] Dr. Enrique Parkinson EGFR-AF LATVIAN >60 Normal >=60 [facility] Comment on above: Performed By: #### T 4, TSH, LIPID, CMP, FT3 #### [facility] [address] [place] [address] Dr. Enrique Parkinson EGFR-NON AF LATVIAN >60 Normal >=60 [facility] Comment on above: Performed By: #### T 4, TSH, LIPID, CMP, FT3 #### [facility] [address] [place] [address] Dr. Enrique Parkinson Globulin (S) [Mass/Vol] 3.8 g/dL Normal [facility] Comment on above: Performed By: #### T 4, TSH, LIPID, CMP, FT3 #### [facility] [address] [place] [address] Dr. Enrique Parkinson Glucose [Mass/Vol] 111 mg/dL Critically high 74-106 [facility] Comment on above: Performed By: #### T 4, TSH, LIPID, CMP, FT3 #### [facility] [address] [place] [address] Dr. Enrique Parkinson Potassium [Moles/Vol] 3.7 mmol/L Normal 3.5-5.1 [facility] Comment on above: Performed By: #### T 4, TSH, LIPID, CMP, FT3 #### [facility] [address] [place] [address] Dr. Enrique Parkinson Protein [Mass/Vol] 7.9 g/dL Normal 6.4-8.2 [facility] Comment on above: Performed By: #### T 4, TSH, LIPID, CMP, FT3 #### [facility] [address] [place] [address] Dr. Enrique Parkinson Sodium [Moles/Vol] 139 mmol/L Normal 136-145 [facility] Comment on above: Performed By: #### T 4, TSH, LIPID, CMP, FT3 #### [facility] [address] [place] [address] Dr. Enrique Parkinson Urea nitrogen [Mass/Vol] 15.0 mg/dL Normal 7.0-18.0 [facility] Comment on above: Performed By: #### T 4, TSH, LIPID, CMP, FT3 #### [facility] [address] [place] [address] Dr. Enrique Parkinson Urea nitrogen/Creatinine [Mass ratio] 18.8 mg/mg Normal [facility] Comment on above: Performed By: #### T 4, TSH, LIPID, CMP, FT3 #### [facility] [address] [place] [address] Dr. Enrique Parkinson T4on 08-08-2022 T4 [Mass/Vol] 10.30 ug/dL Normal 4.80-13.90 The [facility] Comment on above: Performed By: #### T 4, TSH, LIPID, CMP, FT3 #### [facility] [address] [place] [address] Dr. Enrique Parkinson TSHon 08-08-2022 TSH 0.847 uIU/mL Normal 0.358-3.740 The [facility] Comment on above: Performed By: #### T 4, TSH, LIPID, CMP, FT3 #### [facility] [address] [address] [address] Enrique Parkinson VITAMIN D 25 OHon 08-08-2022 VIT D 25-OH 35.8 ng/mL Normal [facility] Comment on above: Performed By: #### V ITAD #### [facility] [address] [place] [address] Dr. Enrique Parkinson VIT D RANGES SEE BELOW Normal [facility] Comment on above: Result Comment: <20 ng/mL Vit D deficient 20 - <30 ng/mL Vit D insufficient 30 - 100 ng/mL Vit D sufficient >100 ng/mL Potential Toxicity Performed By: #### V ITAD #### [facility] [address] [place] [address] Dr. Enrique Parkinson Covid-19 PCR ([facility])on 12-15 SARS-CoV-2 (COVID-19) RNA RENATO+probe Ql (Unsp spec) Not detected Normal NOT DETECTED [facility] Comment on above: Result Comment: This test is not yet approved or cleared by the [place] FDA. When there are no FDA-approved or cleared tests available, and other criteria are met, FDA can make tests available under an emergency access mechanism called an Emergency Use Authorization (EUA). The EUA for this test is supported by the [place] of Health and Human Service's (HHS's) declaration [...] SARS-CoV-2. Performed By: #### C VDTB #### [facility] [address] [place] [address] Dr. Enrique Parkinson SYMPTOMATIC COVID-19 ANTIGEN on 01-04-2022 EUA Statement SEE BELOW [facility] Comment on above: Result Comment: This [...] sooner. Performed By: #### C VDAGS #### [facility] [address] [place] [address] Dr. Enrique Parkinson SARS-CoV-2 (COVID-19) RNA RENATO+probe Ql (Unsp spec) Negative Normal NEGATIVE [facility] Comment on above: Performed By: #### C VDAGS #### [facility] [address] [place] [address] Dr. Enrique Parkinson PAP ACOG PANEL 2: 30 to 65on 11-19-2021 . . Normal [facility] Comment on above: Result Comment: Perf ormed at: WB Performed By: #### C VDAGS #### [facility] [address] [place] [address] Dr. Enrique Parkinson Age Gdln ACOG Testing 30-65 [facility] Comment on above: Performed By: #### C VDAGS #### [facility] [address] [place] [address] Dr. Enrique Parkinson DIAGNOSIS: Comment Normal [facility] Comment on above: Result Comment: NEGA TIVE FOR INTRAEPITHELIAL LESION OR MALIGNANCY. Performed at: WB Performed By: #### C VDAGS #### [facility] [address] [place] [address] Dr. Enrique Parkinson HPV Aptima Negative Normal Negative [facility] Comment on above: Result Comment: This nucleic acid amplification test detects fourteen high-risk HPV types (16,18,31,33,35,39,45,51,52,56,58,59,66,68) without differentiation. Performed at: =G Performed By: #### C VDAGS #### [facility] [address] [place] [address] Dr. Enrique Parkinson Methodology: Comment Normal [facility] Comment on above: Result Comment: This liquid based ThinPrep(R) pap test was screened with the use of an image guided system. Performed at: WB Performed By: #### C VDAGS #### [facility] [address] [place] [address] Dr. Enrique Parkinson Note: Comment Normal [facility] Comment on above: Result Comment: [...] WB Performed By: #### C VDAGS #### [facility] [address] [place] [address] Dr. Enrique Parkinson Performed by: Comment Normal [facility] Comment on above: Result Comment: Hipolito Rosenberg, National Investigative Producer (ASCP) Performed at: WB Performed By: #### C VDAGS #### [facility] [address] [place] [address] Dr. Enrique Parkinson Specimen adequacy: Comment Normal [facility] Comment on above: Result Comment: Sati sfactory for evaluation. Endocervical and/or squamous metaplastic cells (endocervical component) are present. Performed at: WB Performed By: #### C VDAGS #### [facility] [address] [address] [address] Enrique Parkinson Vital Signs Date Time Vital Sign Value Performing Clinician Facility 02-18-2025 10:21-0400 Body height 167.64 cm Rakesh Vernon MD Work Phone: [facility] 02-18-2025 10:21-0400 Body mass index (BMI) [Ratio] 29.2 kg/m2 Rakesh Vernon MD Work Phone: [facility] 02-18-2025 10:21-0400 Body weight 82.21 kg Rakesh Vernon MD Work Phone: [facility] 02-18-2025 10:21-0400 Diastolic blood pressure 86 mm[Hg] Rakesh Vernon MD Work Phone: [facility] 02-18-2025 10:21-0400 Heart rate 78 /min Rakesh Vernon MD Work Phone: [facility] 02-18-2025 10:21-0400 SaO2% (BldA) [Mass fraction] 99 % Rakesh Vernon MD Work Phone: [facility] 02-18-2025 10:21-0400 Systolic blood pressure 128 mm[Hg] Rakesh Vernon MD Work Phone: [facility] 09-30-2024 11:30-0400 Diastolic blood pressure 65 mm[Hg] Jono Gonzalez III, MD Work Phone: [facility] 09-30-2024 11:30-0400 Heart rate 61 /min Jono Gonzalez III, MD Work Phone: [facility] 09-30-2024 11:30-0400 SaO2% (BldA) [Mass fraction] 100 % Jono Gonzalez III, MD Work Phone: [facility] 09-30-2024 11:30-0400 Systolic blood pressure 114 mm[Hg] Jono Gonzalez III, MD Work Phone: [facility] 09-30-2024 11:16-0400 Respiratory rate 16 /min Jono Gonzalez III, MD Work Phone: [facility] 09-30-2024 09:53-0400 Body temperature 97.3 [degF] Jono Gonzalez III, MD Work Phone: [facility] 09-16-2024 06:52-0500 Body height 165.1 cm Pacc 1 Work Phone: [facility] 09-16-2024 06:52-0500 Body mass index (BMI) [Ratio] 28.25 kg/m2 Pacc 1 Work Phone: [facility] 09-16-2024 06:52-0500 Body temperature 98.1 [degF] Pacc 1 Work Phone: [facility] 09-16-2024 06:52-0500 Body weight 77 kg Pacc 1 Work Phone: [facility] 09-16-2024 06:52-0500 Diastolic blood pressure 91 mm[Hg] Pacc 1 Work Phone: [facility] 09-16-2024 06:52-0500 Heart rate 55 /min Pacc 1 Work Phone: [facility] 09-16-2024 06:52-0500 Respiratory rate 14 /min Pacc 1 Work Phone: [facility] 09-16-2024 06:52-0500 SaO2% (BldA) [Mass fraction] 100 % Pacc 1 Work Phone: [facility] 09-16-2024 06:52-0500 Systolic blood pressure 144 mm[Hg] Pacc 1 Work Phone: [facility] 09-12-2024 09:54-0500 Body height 167.6 cm Jono Gonzalez III, MD Work Phone: [facility] Comment on above: verbal 09-12-2024 09:54-0500 Body mass index (BMI) [Ratio] 27.79 kg/m2 Jono Gonzalez III, MD Work Phone: [facility] 09-12-2024 09:54-0500 Body weight 78.1 kg Jono Gonzalez III, MD Work Phone: [facility] 09-12-2024 09:54-0500 Diastolic blood pressure 70 mm[Hg] Jono Gonzalez III, MD Work Phone: [facility] 09-12-2024 09:54-0500 Heart rate 75 /min Jono Gonzalez III, MD Work Phone: [facility] 09-12-2024 09:54-0500 SaO2% (BldA) [Mass fraction] 99 % Jono Gonzalez III, MD Work Phone: [facility] 09-12-2024 09:54-0500 Systolic blood pressure 120 mm[Hg] Jono Gonzalez III, MD Work Phone: [facility] 08-12-2024 13:18-0500 Body weight 77.2 kg Elgin Pelayo MD Work Phone: [facility] 08-12-2024 13:18-0500 Diastolic blood pressure 83 mm[Hg] Elgin Pelayo MD Work Phone: [facility] 08-12-2024 13:18-0500 Heart rate 83 /min Elgin Pelayo MD Work Phone: [facility] 08-12-2024 13:18-0500 SaO2% (BldA) [Mass fraction] 100 % Elgin Pelayo MD Work Phone: [facility] 08-12-2024 13:18-0500 Systolic blood pressure 123 mm[Hg] Elgin Pelayo MD Work Phone: [facility] 06-09-2024 14:23-0500 Body height 167.6 cm Breann Briscoe MD Work Phone: [facility] 06-09-2024 14:23-0500 Body mass index (BMI) [Ratio] 25.82 kg/m2 Breann Briscoe MD Work Phone: [facility] 06-09-2024 14:23-0500 Body weight 72.58 kg Breann Briscoe MD Work Phone: [facility] 04-16-2024 09:35-0400 Diastolic blood pressure 84 mm[Hg] Dave Penny DO Work Phone: [facility] 04-16-2024 09:35-0400 Heart rate 78 /min Dave Penny DO Work Phone: [facility] 04-16-2024 09:35-0400 SaO2% (BldA) [Mass fraction] 99 % Dave Penny DO Work Phone: [facility] 04-16-2024 09:35-0400 Systolic blood pressure 120 mm[Hg] Dave Penny DO Work Phone: [facility] 08-07-2023 10:27-0500 Diastolic blood pressure 94 mm[Hg] Aruba Dennison DO Work Phone: [facility] 08-07-2023 10:27-0500 Heart rate 77 /min Aruba Dennison DO Work Phone: [facility] 08-07-2023 10:27-0500 SaO2% (BldA) [Mass fraction] 98 % Aruba Dennison DO Work Phone: [facility] 08-07-2023 10:27-0500 Systolic blood pressure 140 mm[Hg] Ar[place] Dennison DO Work Phone: [facility] 08-07-2023 08:01-0500 Body height 167.6 cm Aruba Dennison DO Work Phone: [facility] 08-07-2023 08:01-0500 Body mass index (BMI) [Ratio] 29.05 kg/m2 Aruba Dennison DO Work Phone: [facility] 08-07-2023 08:01-0500 Body temperature 98.1 [degF] Aruba Dennison DO Work Phone: [facility] 08-07-2023 08:01-0500 Body weight 81.65 kg Aruba Dennison DO Work Phone: [facility] 08-07-2023 08:01-0500 Respiratory rate 16 /min Shen Dennison DO Work Phone: [facility] 12-14-2022 14:45-0400 Body height 167.64 cm Mirta Salazarley Other [employer] Other 12-14-2022 14:45-0400 Body mass index (BMI) [Ratio] 30.18 kg/m2 Mirta Ginna Other [employer] Other 12-14-2022 14:45-0400 Body temperature 97.8 [degF] Mirta Salazarley Other [employer] Other 12-14-2022 14:45-0400 Body weight 84.82 kg Mirta Salazarley Other [employer] Other 12-14-2022 14:45-0400 Respiratory rate 18 /min Mirta Salazarley Other [employer] Other 12-14-2022 14:45-0400 SaO2% (BldA) [Mass fraction] 98 % Mirta Salazarley Other [employer] Other Encounters Encounter Date Encounter Type Care Provider Facility Start: 02-18-2025 End: 02-18-2025 ambulatory Rakesh Vernon MD Work Phone: [facility] Work Phone: Start: 02-18-2025 End: 02-18-2025 Patient encounter procedure Neelima Rangel [employer] [facility] Work Phone: Start: 10-16-2024 End: 10-16-2024 ambulatory JONO GONZALEZ III Facility:[facility] Start: 10-16-2024 End: 10-16-2024 Patient encounter procedure Jono Gonzalez MD Work Phone: General Surgery Comment on above: Post-operative state (Primary Dx) Start: 10-02-2024 End: 10-02-2024 Telephone encounter Shweta Hsu RN Work Phone: General Surgery Start: 09-30-2024 ambulatory SHARATH MOON IBARRA [facility] ity:[facility] Start: 09-30-2024 End: 09-30-2024 Subsequent hospital visit by physician Jono Gonzalez MD Work Phone: Ambulatory Surgery Comment on above: Calculus of gallblad sadia without cholecystitis without obstruction [K80.20] Start: 09-16-2024 End: 09-16-2024 E-mail encounter from caregiver Geovany Moreland MARK Work Phone: Pre Anesthesia Start: 09-16-2024 End: 09-16-2024 Admission to establishment Pacc [place] 1 Work Phone: Pre Anesthesia Start: 09-16-2024 End: 09-16-2024 ambulatory JONO GONZALEZ III Facility:[facility] Start: 09-16-2024 End: 09-16-2024 Anesthesia consultation Pacc [place] 1 Work Phone: Pre Anesthesia Comment on above: Pre-op examination ( Primary Dx); Uncomplicated asthma, unspecified asthma severity, unspecified whether persistent; Pure hypercholesterolemia, unspecified; Hypertension, unspecified type; Sleep apnea, unspecified type; Biliary calculus of other site without obstruction; Hypothyroidism, unspecified type Start: 09-16-2024 Encounter for other preprocedural examination JONO GONZALEZ III [facility] Start: 09-16-2024 End: 09-16-2024 Preprocedural examination done Pacc [place] 1 Work Phone: [facility] Work Phone: Start: 09-15-2024 End: 09-17-2024 Telephone encounter Jono Gonzalez MD Work Phone: General Surgery Comment on above: Schedule Surgery Start: 09-12-2024 End: 09-12-2024 Patient encounter procedure Jono Gonzalez MD Work Phone: General Surgery Comment on above: Calculus of gallblad sadia without cholecystitis without obstruction (Primary Dx) Start: 09-12-2024 End: 09-12-2024 ambulatory JONO Be MOON III Facility:[facility] Start: 09-11-2024 End: 09-11-2024 Telephone encounter Shweta Hsu RN Work Phone: General Surgery Start: 09-08-2024 ambulatory Facility:[facility] Start: 08-14-2024 End: 08-19-2024 Telephone encounter Elgin Pelayo MD Work Phone: Pulmonary Medicine Comment on above: Image request Start: 08-12-2024 End: 08-12-2024 ambulatory ELGIN PELAYO Facility:[facility] Start: 08-12-2024 End: 08-12-2024 Patient encounter procedure Elgin Pelayo MD Work Phone: Pulmonary Medicine Comment on above: Severe persistent as thma without complication (Primary Dx); Shortness of breath Start: 07-02-2024 End: 07-02-2024 Telephone encounter Dave Francis DO Work Phone: [facility] Start: 06-18-2024 End: 06-18-2024 ambulatory Kana Montilla Facility:[facility] Start: 06-09-2024 End: 06-09-2024 Office outpatient new 45 minutes Breann Briscoe MD Work Phone: [facility] Comment on above: Wheeze (Primary Dx); Chronic rhinitis; Recurrent sinus infections Start: 06-09-2024 End: 06-09-2024 ambulatory BREANN BRISCOE Not Available Start: 06-09-2024 End: 06-09-2024 Bamboo flowsheet Breann Briscoe MD Work Phone: [facility] Start: 06-09-2024 End: 06-09-2024 Bamboo flowsheet Breann Briscoe MD Work Phone: [facility] Start: 06-09-2024 End: 06-13-2024 Orders Only Breann Briscoe MD Work Phone: [facility] External Department Unsolicited Start: 05-22-2024 End: 05-23-2024 Orders Only Not In System Ref Prov [facility] Start: 05-15-2024 End: 11-06-2024 Telephone encounter Brea Mack [place] [facility] Start: 04-16-2024 End: 04-16-2024 Bamboo flowsheet Dave Penny DO Work Phone: [facility] Start: 04-16-2024 End: 04-16-2024 Bamboo flowsheet Dave Penny DO Work Phone: [facility] Start: 04-16-2024 End: 04-16-2024 ambulatory DAVE FRANCIS Not Available Start: 04-16-2024 End: 04-16-2024 Office outpatient visit 25 minutes Dave Francis DO [facility] Comment on above: Hypersomnia (Primary Dx); JANIS (obstructive sleep apnea); Snoring; Memory loss Start: 08-07-2023 End: 08-07-2023 Emergency department patient visit Shen Dennison DO Work Phone: [facility] Comment on above: Fall, initial encoun ter (Primary Dx); Closed head injury, initial encounter Start: 12-14-2022 End: 12-14-2022 ambulatory Mirta Chacko Other [employer] Other Start: 12-14-2022 Office outpatient ne w 30 minutes Mirta Chacko [facility] Start: 08-09-2022 Encounter for genera l adult medical examination without abnormal findings DR RAKESH VERNON [facility] Start: 08-08-2022 End: 08-09-[address] RAKESH VERNON Facility:[facility] Start: 08-08-2022 End: 08-09-2022 Encounter for general adult medical examination without abnormal findings DR RAKESH VERNON Facility:[facility] Start: 02-27-2022 End: 06-08-[address] RAKESH VERNON Facility:[facility] Start: 01-04-2022 End: 01-04-[address] RAKESH VERNON Facility:[facility] Start: 11-14-2021 End: 11-14-[address] RAKESH VERNON Facility:[facility] Start: 10-07-2021 End: 01-16-[address] RAKESH VERNON Facility:[facility] Procedures Date Procedure Procedure Detail Performing Clinician Start: 09-30-2024 Ecg routine ecg w/le ast 12 lds i&r only [facility] Provider Start: 09-30-2024 End: 09-30-2024 Laps surg cholecystectomy w/cholangiography Jono Gonzalez MD Work Phone: Start: 06-09-2024 Antibody diphtheria Tod brian Briscoe MD Work Phone: Start: 06-09-2024 Assay of gammaglobul in iga igd igg igm each Breann Briscoe MD Work Phone: Start: 06-09-2024 Complete blood count with white cell differential, automated Breann Briscoe MD Work Phone: Start: 06-09-2024 PNEUMOCOCCAL AB (23 SEROTYPE) Breann Briscoe MD Work Phone: Start: 05-11-2024 MULTIPLE LABS Not In Sy [...] Ct cervical spine w/ o contrast material Neelima C Sales DO Work Phone: Start: 08-07-2023 Ct head/brain w/o co ntrast material Neelima C Sales DO Work Phone: Start: 08-07-2023 Ecg routine ecg w/le ast 12 lds trcg only w/o i&r Neelima Peralta DO Work Phone: Start: 08-07-2023 Comprehensive metabo lic panel Neelima Edilberto Julius DO Work Phone: Start: 06-29-2023 Mammography Dave hahn DO Work Phone: Plan of Treatment Date Care Activity Detail Author Start: 08-19-2034 Urine microalbumin profile DTaP,Tdap,Td Vaccine (2 - Td or Tdap) [facility] Start: 08-07-2026 Diabetes Screening Diabetes Screenin g [facility] Start: 03-16-2025 Influenza vaccination Influenza Vacc [facility] Start: 11-10-2024 End: 11-10-2024 Patient encounter procedure 11/10/2024 2:00 PM EDT Office Visit Pulmonary [facility] [address] [facility] [place] [address] Jazmyne Liu APRN.MANAGER POWER [address] [place] [address] Return in about 3 months (around 11/10/2024). Pulmonary Medicine Comment on above: Return in about 3 mo nths (around 11/10/2024). Start: 11-10-2024 End: 11-10-2024 ambulatory Pulmonary Lab Comment on above: Severe persistent as thma without complication [J45.50] Start: 10-16-2024 End: 10-16-2024 Patient encounter procedure 10/16/2024 8:30 AM EDT Office Visit General Surgery [address] [place] [id number] Jono Gonzalez III, MD [address] [place] [address] POST OP LAP [place] General Surgery Comment on above: POST OP [place] Start: 09-30-2024 End: 09-30-2024 Admission to same day surgery center 09/30/2024 10:30 AM EDT - 09/30/2024 11:35 AM EDT Surgery Ambulatory Surgery [address] [place] [address] Jono Gonzalez III, MD [address] [place] [address] LAPAROSCOPIC CHOLECYSTECTOMY WITH GRAMS Ambulatory Surgery Comment on above: LAPAROSCOPIC CHOLECY STECTOMY WITH GRAMS Start: 09-30-2024 End: 09-30-2024 Laps surg cholecystectomy w/cholangiography LAPAROSCOPIC CHOLECYSTECTOMY WITH GRAMS Calculus of gallbladder without cholecystitis without obstruction 09/30/2024 10:30 AM EDT [facility] Start: 09-30-2024 Subsequent hospital visit by physician 09/30/2024 10:30 AM EDT Hospital Encounter Ambulatory Surgery [address] [place] [address] Jono Gonzalez III, MD [address] [place] [address] Calculus of gallbladder without cholecystitis without obstruction [K80.20] Ambulatory Surgery Comment on above: Calculus of gallblad sadia without cholecystitis without obstruction [K80.20] Start: 09-12-2024 End: 09-12-2024 Patient encounter procedure 09/12/2024 12:00 PM EST Office Visit General Surgery [address] [place] [address] Jono Gonzalez III, MD [address] [place] [address] Cholelithiasis General Surgery Comment on above: Cholelithiasis Start: 07-03-2024 End: 07-03-2024 Patient encounter procedure 07/03/2024 2:20 PM EST Office Visit [facility] [address] [place] [address] Breann Briscoe MD [address] [place] [address] [facility] Start: 06-29-2024 Screening for malign ant neoplasm of breast Mammogram [facility] Start: 06-09-2024 End: 06-09-2024 Patient encounter procedure 06/09/2024 2:40 PM EST Office Visit [facility] [address] [place] [id number] Breann Briscoe MD [address] [place] [address] Arrived [facility] Comment on above: Arrived Start: 06-09-2024 End: 06-09-2025 CBC W Auto Differential panel - Blood CBC and differential Lab Routine Recurrent sinus infections Expected: 06/09/2024 (Approximate), Expires: 06/09/2025 [facility] Comment on above: Expected: 06/09/2024 (Approximate), Expires: 06/09/2025 Start: 06-09-2024 End: 06-09-2025 Diphtheria / Tetanus Antibody Panel Diphtheria / Tetanus Antibody Panel Lab Routine Recurrent sinus infections Expected: 06/09/2024 (Approximate), Expires: 06/09/2025 [facility] Comment on above: Expected: 06/09/2024 (Approximate), Expires: 06/09/2025 Start: 06-09-2024 End: 06-09-2025 IgA [Mass/volume] in Serum or Plasma IgA Lab Routine Recurrent sinus infections Expected: 06/09/2024 (Approximate), Expires: 06/09/2025 [facility] Comment on above: Expected: 06/09/2024 (Approximate), Expires: 06/09/2025 Start: 06-09-2024 End: 06-09-2025 IgE [Units/volume] in Serum or Plasma IgE Lab Routine Recurrent sinus infections Expected: 06/09/2024 (Approximate), Expires: 06/09/2025 [facility] Comment on above: Expected: 06/09/2024 (Approximate), Expires: 06/09/2025 Start: 06-09-2024 End: 06-09-2025 IgG [Mass/volume] in Serum or Plasma IgG Lab Routine Recurrent sinus infections Expected: 06/09/2024 (Approximate), Expires: 06/09/2025 [facility] Work Phone: Comment on above: Expected: 06/09/2024 (Approximate), Expires: 06/09/2025 Start: 06-09-2024 End: 06-09-2025 IgM [Mass/volume] in Serum or Plasma IgM Lab Routine Recurrent sinus infections Expected: 06/09/2024 (Approximate), Expires: 06/09/2025 [facility] Comment on above: Expected: 06/09/2024 (Approximate), Expires: 06/09/2025 Start: 06-09-2024 End: 06-09-2025 Tetanus toxoid, IgG Tetanus toxoid, IgG Lab Routine Recurrent sinus infections Expected: 06/09/2024 (Approximate), Expires: 06/09/2025 [facility] Comment on above: Expected: 06/09/2024 (Approximate), Expires: 06/09/2025 Start: 05-28-2024 End: 05-28-2024 Patient encounter procedure 05/28/2024 4:00 PM EST Office Visit [facility] [address] [id number] Jennifer Jennings PA [address] [place] [address] [facility] Start: 03-16-2024 Covid-19 Vaccine ( season) Covid-19 Vaccine ( season) [facility] Start: 03-16-2024 Influenza vaccination [facility] Start: 03-16-2023 Influenza vaccination Influenza Vacc ine (#1) [facility] Start: 05-24-2021 COVID-19 Vaccine (3 - Pfizer series) COVID-19 Vaccine (3 - Pfizer series) [facility] Start: 2017 Administration of varicella zoster vaccine Zoster (Shingles) Vaccine (1 of 2) [employer] [facility] Start: 2017 Pneumococcal Vaccine : 50+ (1 of 1 - PCV) Pneumococcal Vaccine: 50+ (1 of 1 - PCV) [facility] Start: 2017 Shingrix Vaccine (1 of 2) Zabala grix Vaccine (1 of 2) [facility] Start: 2017 Zoster Vaccines (1 of 2) Zoster Vacc yue (1 of 2) [facility] Start: 01-06-2012 Lipid panel Lipid Screening [facility] Start: 01-06-2012 Screening for malign ant neoplasm of colon [facility] Start: 2007 Screening for malign ant neoplasm of breast [facility] Start: 1997 Screening for malign ant neoplasm of cervix [facility] Start: 1989 DTaP/Tdap/Td Vaccine s (1 - Tdap) DTaP/Tdap/Td Vaccines (1 - Tdap) [facility] Start: 01-06-1988 Screening for malign ant neoplasm of cervix [facility] Start: 1986 DTaP,Tdap and Td Vac cines (1 - Tdap) DTaP,Tdap and Td Vaccines (1 - Tdap) [facility] Start: 1986 Hepatitis B Vaccine (1 of 3 - 19+ 3-dose series) Hepatitis B Vaccine (1 of 3 - 19+ 3-dose series) [facility] Start: 1986 Urine microalbumin profile DTaP,Tdap,Td Vaccine (1 - Tdap) [facility] Start: 1985 Adult BMI Screening Adult BMI Screen ing [facility] Start: 1985 Annual PCP Team Loading Rack Supervisor randy Disease Visit Annual PCP Team Chronic Disease Visit [facility] Start: 1985 Anxiety Screening Anxiety Screening [facility] Start: 1985 BP Controlled (<130/80) BP Controlle d (<130/80) [facility] Start: 1985 Depression Screening Depression Scre ing [facility] Start: 1985 Diabetes mellitus screening Diabetes Screening [facility] Start: 1985 Hepatitis C screening Hepatitis C Sc [facility] Start: 1985 HIV screening HIV Screening [facility] Start: 1985 Spirometry Spirometry [facility] Start: 1979 Depression Screening Depression Scre ening [facility] Start: 1979 Tobacco Screening Tobacco Screening [facility] Start: 01-06-1968 MMR Vaccines (1 of 1 - Standard series) MMR Vaccines (1 of 1 - Standard series) [facility] Start: 1967 Hepatitis B Vaccines (1 of 3 - 3-dose series) Hepatitis B Vaccines (1 of 3 - 3-dose series) [facility] Start: 1967 HIV screening HIV Screening [facility] Start: 1967 Lipid panel Lipid Panel [facility] Start: 1967 Screening for malign ant neoplasm of colon [facility] Start: 1967 Yearly Adult Physical Yearly Adult P hysical [facility] ECG 12 lead ECG 12 lead ECG STAT 08/07/2023 8:33 AM EST [facility] Service Area Work Phone: End: 09-30-2024 ECG COMPLETE [facility] Work Phone: Comment on above: ONCE for 1 Occurrenc es starting 09/30/2024 until 09/30/2024 End: 09-12-2025 NITRIC OXIDE, EXHALED NITRIC OXIDE, EXHALED PFT Routine Severe persistent asthma without complication 1 Occurrences starting 08/12/2024 until 09/12/2025 [facility] Work Phone: Comment on above: 1 Occurrences starti ng 08/12/2024 until 09/12/2025 End: 09-12-2025 SPIROMETRY WITH DILATOR IF OBSTRUCTED SPIROMETRY WITH DILATOR IF OBSTRUCTED PFT Routine Severe persistent asthma without complication 1 Occurrences starting 08/12/2024 until 09/12/2025 [facility] Comment on above: 1 Occurrences starti ng 08/12/2024 until 09/12/2025 STREPTOCOCCUS PNEUMO SEAN AB (IGG) (23 SEROTYPES) STREPTOCOCCUS PNEUMONIA AB (IGG) (23 SEROTYPES) Lab Routine Recurrent sinus infections Ordered: 06/09/2024 [facility] Comment on above: Ordered: 06/09/2024 Tissue Pathology bio psy report [facility] Work Phone: Comment on above: Release Upon Orderin g for 1 Occurrences starting 09/30/2024, 1 completed Payers Date Payer Category Payer Self-pay 2023 Unknown [id number] 2020 Blue [employer] Blue Shield [id number] 2020 Blue Cross Blue Shie ld Managed Care - Other [place] [address] [id number] 2020 Unknown [id number] 1967 Unknown [id number] 1967 Unknown [id number] [id number] 1967 Unknown [id number] [id number] 1967 Unknown [id number] [id number] 1967 Unknown [id number] [id number] 1967 Unknown [id number] [id number] 1967 Unknown [id number] [id number] 1967 Unknown [id number] 1959 Self-pay [id number] 1959 Unknown [id number] Unknown [id number] [id number] Social History Date Type Detail Facility Unknown if ever smoked [facility] Other Start: 04-16-2024 End: 08-12-2024 Sex Assigned At [facility] Other Tobacco smoking stat us NHIS Tobacco smoking consumption unknown [facility] [facility] Start: 1965 Sex Assigned At Not on file [facility] Work Phone: Start: 07-28-2023 End: 08-07-2023 Exposure to SARS-CoV-2 (event) Not sure [facility] Work Phone: Start: 04-16-2024 End: 06-18-2024 Tobacco smoking status NHIS Never smoked tobacco [facility] Start: 04-16-2024 End: 08-12-2024 History of Social function [facility] Start: 1965 Sex assigned at Female [facility] Start: 05-23-2023 Gender identity Identifies as female gender (finding) [facility] Start: 05-23-2023 Sexual orientation Heterosexual (finding) [facility] Start: 08-12-2024 Tobacco use and exposure Smokeless tobacco non-user [facility] National Score (1-10 0), lower number is lower risk 73 [facility] Start: 05-12-2024 Sex Female (finding) [facility] Start: 09-16-2024 End: 10-16-2024 Alcoholic beverage intake Lifetime non-drinker (finding) [facility] Clinical Notes 12-14-2022 to 10-16-2024 Jono Gonzalez III, MD - 10/16/2024 8:31 AM EDTTelephone Encounter - Shweta Hsu RN - 10/02/2024 9:01 AM EDTTelephone Encounter - Shweta Hsu RN - 10/02/2024 9:01 AM EDTPatient Instructions Note Date & Type Note Facility 10-16-2024 Note HNO ID: [id number] Author: JONO GONZALEZ III, MD Service: ? Author Type: Physician Type: Progress Notes Filed: 10/16/2024 08:36 Note Text: This patient is 16 days post op from laparoscopic cholecystectomy. She has had no symptoms. P.E. The wounds are healing well without evidence of infection. I reviewed the pathology report with Praveena. FINAL DIAGNOSIS A. Gallbladder, cholecystectomy: - Chronic cholecystitis with cholelithiasis and cholesterolosis. Electronically signed by Darcy Hernández MD, PhD Assessment Satisfactory course Plan: Return to office PRN. Jono Gonzalez III, MD [facility] 10-16-2024 History of Presen t illness Narrative This patient is 16 days post op from laparoscopic cholecystectomy. She has had no symptoms. P.E. The wounds are healing well without evidence of infection. I reviewed the pathology report with Praveena. FINAL DIAGNOSIS A. Gallbladder, cholecystectomy: - Chronic cholecystitis with cholelithiasis and cholesterolosis. Electronically signed by Darcy Hernández MD, PhD Assessment Satisfactory course Plan: Return to office PRN. Jono Gonzalez III, MD documented in this encounter [facility] 10-02-2024 Telephone encounter Note POST OP PHONE CALL: Patient states she [...] then would need to be off longer. [facility] Work Phone: 10-02-2024 Miscellaneous Notes POST OP PHONE CALL: Patient states she [...] then would need to be off longer. documented in this encounter [facility] 09-30-2024 Note HNO ID: [id number] Author: GOSIA SÁNCHEZ RN Service: ? Author Type: Registered Nurse Type: Nursing Progress Note Filed: 09/30/2024 11:50 Note Text: Dr. Elise has cleared pt for discharge. EKG WNL. Chest heaviness is gone. [facility] 09-30-[address] Elise has cleared pt for discharge. EKG WNL. Chest heaviness is gone. [facility] 09-30-[address] Elise has cleared pt for discharge. EKG WNL. Chest heaviness is gone. C/O chest heaviness. VSS. O2 on at 2L. H/O recent chest heaviness. CT ruled out. documented in this encounter [facility] 09-30-2024 Note HNO ID: [id number] Author: GOSIA SÁNCHEZ RN Service: ? Author Type: Registered Nurse Type: Nursing Progress Note Filed: 09/30/2024 11:16 Note Text: C/O chest heaviness. VSS. O2 on at 2L. H/O recent chest heaviness. CT ruled out. [facility] 09-30-2024 Nurse Note C/O chest heaviness. VSS. O2 on at 2L. H/O recent chest heaviness. CT ruled out. [facility] 09-30-2024 Note HNO ID: [id number] Author: EUSEBIO VENEGAS APRN.CRNA Service: Anesthesiology Author Type: Nurse Buyer Type: Anesthesia Procedure Notes Filed: 09/30/2024 09:30 Note Text: ANESTHESIOLOGY PROCEDURE NOTE Airway General Information Procedure Start Time/Medication Administration: 09/30/2024 9:19 AM Procedure End Time: 09/30/2024 9:19 AM Patient location during procedure: OR Patient identity confirmed: arm band and patient Staffing HAND INSERTER OPERATOR: Eusebio Venegas APRN.HAND INSERTER OPERATOR Performed by: JAIRO Indications and Patient Condition Indications for airway [...] at approach: 1 Airway not difficult SIGNATURE: Eusebio Venegas APRN.HAND INSERTER OPERATOR PATIENT NAME: Praveena Dacosta DATE: September 30, 2024 TIME: 9:30 AM CSN: [id number] [facility] 09-30-2024 Surgery Surgical operation note OPERATIVE REPORT LOG ID: [id number] SURGERY/PROCEDURE DATE: 09/30/2024 INCISION/PROCEDURE START TIME: 9:27 AM INCISION CLOSE/PROCEDURE END TIME: 9:44 AM SURGEON: Jnoo Gonzalez III, MD PERSONAL BANKING ASSISTANT: Yesenia Monson PA-C OPERATION: Laparoscopic cholecystectomy (40771). ANESTHESIA: GETA and 20 mL of 0.5% [...] trocars were introduced into the abdomen. The patient had been tilted steeply to the left and [...] SIGNATURE: Jono Gonzalez III, MD PATIENT NAME: Praveena Dacosta DATE: September 30, 2024 TIME: 9:45 AM [facility] 09-30-2024 Surgical operatio n note OPERATIVE REPORT LOG ID: [id number] SURGERY/PROCEDURE DATE: 09/30/2024 INCISION/PROCEDURE START TIME: 9:27 AM INCISION CLOSE/PROCEDURE END TIME: 9:44 AM SURGEON: Jono Gonzalez III, MD PERSONAL BANKING ASSISTANT: Yesenia Monson PA-C OPERATION: Laparoscopic cholecystectomy ([id number]). ANESTHESIA: GETA and 20 mL of 0.5% [...] trocars were introduced into the abdomen. The patient had been tilted steeply to the left and [...] SIGNATURE: Jono Gonzalez III, MD PATIENT NAME: Praveena Dacosta DATE: September 30, 2024 TIME: 9:45 AM documented in this encounter [facility] 09-30-2024 History and physical note UPDATED HISTORY AND PHYSICAL EXAMINATION SERVICE DATE: 09/30/2024 SERVICE TIME: 8:39 AM PHYSICAL EXAM MUST BE COMPLETED ON ADMISSION The History and Physical (completed in the past 30 days) has been reviewed and the patient has been examined. The contents accurately reflect the patient's condition with the following additions or revisions since the H&P was completed. Examination indicates no changes. This H&P can be found in the Electronic Medical Record dated 09/16/2024. SIGNATURE: Jono Gonzalez III, MD PATIENT NAME: Praveena Dacosta DATE: September 30, 2024 TIME: 8:39 AM [facility] 09-30-2024 History and physical note UPDATED HISTORY AND PHYSICAL EXAMINATION SERVICE DATE: 09/30/2024 SERVICE TIME: 8:39 AM PHYSICAL EXAM MUST BE COMPLETED ON ADMISSION The History and Physical (completed in the past 30 days) has been reviewed and the patient has been examined. The contents accurately reflect the patient's condition with the following additions or revisions since the H&P was completed. Examination indicates no changes. This H&P can be found in the Electronic Medical Record dated 09/16/2024. SIGNATURE: Jono Gonzalez III, MD PATIENT NAME: Praveena Dacosta DATE: September 30, 2024 TIME: 8:39 AM documented in this encounter [facility] 09-30-2024 Hospital Discharg e instructions Jono Gonzalez III, MD - 09/30/2024 8:39 AM EDT If you have waterproof skin glue covering the wound(s), you do not need any additional dressing. Do not use ANY lotions or ointments as these will remove the glue prematurely and the skin edges may separate. Unruly and Stitches- call the office for removal, usually done 10 days following surgery. Return to your regular diet as tolerated. Pain medication will be prescribed for you before leaving the ASC or hospital. We recommend Extra Strength Tylenol or Advil for mild to moderate pain. ACTIVITIES Avoid things which will cause you to stress or strain against your incision for 6 weeks. Do not lift over 25 pounds for the first 2 weeks and then nothing greater than 40 pounds for 4 weeks. Walking is permitted and encouraged. Don t push yourself to do too much too soon. Gradually build up both length of time and the distance that you walk. Climbing stairs is permitted if done slowly and carefully. Showers are permitted the day after surgery. It is ok to let the soap and water run over the incisions, just avoid scrubbing. Gently pat the wounds with a clean towel to ensure they are dry afterward. Driving may be resumed as long as you are no longer taking any prescription pain medicine. Sex may be resumed 3 weeks following surgery. Anesthesia and pain medications may result in constipation for the first few days after surgery. Please make sure you are getting in 6-8 glasses of water per day. We also recommend taking an qsmz-ywa-vqatpcb stool softer (ie Colace). For questions or concerns occurring immediately post-operatively regarding your IV site, intubation (ie: sore throat, teeth/mouth issues), urinary issues, or anything else not related to the surgical site: CALL THE FACILITY WHERE YOUR PROCEDURE WAS DONE [facility] Operating Room: [facility]: CALL THE OFFICE If you have any questions or concerns. CALL IMMEDIATELY IF YOU HAVE NAUSEA/VOMITING, FEVER GREATER THAN 101, INCREASED ABDOMINAL PAIN, INCREASED PAIN, BULGING OR REDNESS AROUND THE INCISION, OR A NEW ONSET OF PUS DRAINAGE FROM THE WOUND. Contact my office at [phone] to arrange a follow up appointment in 14-21 days. Jono Gonzalez III, MD documented in this encounter [facility] 09-16-2024 Telephone encounter Note Brent , It was a pleasure seeing you this morning in the Pre-Anesthesia Clinic. I wanted to help with your request to establish care with a primary care physician at [facility]. Unfortunately, many of the physicians at that location are not currently accepting new patients. You can reach the [facility] Scheduling number at [phone], and they may be able to help you find a physician who is accepting new patients. Additionally, I ve heard that the [place] location (a few miles further [place]) has primary care providers with availability, and their contact number is [phone]. I hope this helps, and feel free to reach out if you need anything further! Best regards, Geovany Moreland APRN.SALOMON [facility] 09-16-2024 Miscellaneous Notes Brent , It was a pleasure seeing you this morning in the Pre-Anesthesia Clinic. I wanted to help with your request to establish care with a primary care physician at [facility]. Unfortunately, many of the physicians at that location are not currently accepting new patients. You can reach the [facility] Scheduling number at [phone], and they may be able to help you find a physician who is accepting new patients. Additionally, I ve heard that the [place] location (a few miles further East) has primary care providers with availability, and their contact number is [phone]. I hope this helps, and feel free to reach out if you need anything further! Best regards, Geovany Moreland APRN.SALOMON documented in this encounter [facility] 09-16-2024 Instructions Geovany Moreland APRN.CNP - 09/16/2024 7:21 AM EST PATIENT PREOPERATIVE INSTRUCTIONS Jono Gonzalez III has scheduled you for your procedure at this surgery center: [facility]: [phone] --[address] [place] [address]. Please read below carefully for your personalized instructions. OR [facility]: [phone] --[address] [place] [address]. Please enter through the entrance closest to [facility]. Dietary Restrictions: - No solid food after midnight. - You may have 12 ounces of clear liquids (water, clear juices such as apple juice or gatorade, carbonated beverages, clear tea, black coffee, jello) until 2 hours before scheduled arrival at facility. - Do not drink any alcohol after midnight the night before your surgery. - No Milk/Dairy - No Pulp Juices Medications: Unless instructed differently below, stay on all of your medications until your surgery. If you start any new medications after today's visit, please contact your surgeon. Pre-Surgery Med Instructions Medication Instructions modafinil (PROVIGIL) 200 mg tablet Do not take the day of surgery If you start any new medications after today's visit, please contact the surgeon's office. If you are currently using a zpjn-mrg-fmic injectable or oral medication for diabetes or weight loss such as Dulaglutide (Trulicity), Exenatide (Byetta, Bydureon), Liraglutide (Victoza, Saxenda), Semaglutide (Ozempic, Wegovy, Rybelsus), or Tirzepatide (Mounjaro), the medicine should be stopped at least 7 days before surgery. These medicines can cause food to remain in your stomach for a very long time and increase the risks from surgery and anesthesia. Not stopping the medication for a long enough time may result in your surgery being rescheduled. Blood Thinning Medications: - Hold NSAIDS (Ibuprofen, Advil, Aleve, Motrin, Celebrex, Mobic, etc.) 7 days before surgery, as directed by your surgeon. - Hold Aspirin 7 days before surgery, as directed by your surgeon. - Hold all herbals and dietary supplements 7 days before surgery. - You may take Tylenol (Acetaminophen) or any of your pain medications that do not contain aspirin or NSAIDS as needed. Important Reminders: - If you are prescribed inhalers for breathing, continue using them. - If you use CPAP/BIPAP, and will be staying over night, bring the machine with you to the surgery center. - If you use home O2, please bring with you to the surgery center - Please abstain from cannabis use for one week prior to surgery - Candy, mints, and tobacco products are NOT permitted the morning of surgery. - Hearing aids, dentures and glasses may be worn the morning of surgery. - NO jewelry, body piercings, makeup, hairpins or contacts are to be worn the day of surgery. If you develop symptoms such as a fever, cold, or flu, or have other changes to your health within TWO DAYS of scheduled surgery or the morning of surgery, please contact the surgery center above. Personal Belongings: -Please have photo ID and insurance cards. -If you do not have a copy of advance directives on file with us, please bring a copy with you on the day of surgery. - Leave ALL valuables and money at home or with family members. For Outpatient Procedures: - YOU MUST HAVE A RESPONSIBLE BAND SAWYER TAKE YOU HOME. A WARD SERVICE SUPERVISOR OR FLOOR CARE TECHNICIAN CANNOT BE MADE A RESPONSIBLE BAND SAWYER. - We recommend that a responsible person stays with you overnight to take care of you. - You cannot stay in a hotel alone after outpatient surgery. You will not be permitted to have your surgery, if you do not have someone to take care of you. Arrival Time for Surgery: - The Surgery Center or hospital where you are having surgery will call the afternoon before surgery (or Sunday for Sunday surgery) with a scheduled arrival time. - If you have not heard by 4 pm, please contact the surgery center above. Please be aware that emergency situations arise, which may delay or change your surgical time. If this happens, we will notify you as soon as possible and regret any inconvenience. If you already have an Advance Directive, please fax a copy to [phone] or email to for it to be added to your chart. If you do not have an Advance Directive, you can find the appropriate form and more information at [email or web address]. We recommend that you complete the Advance Directive form found on the website and bring it with you the day of your surgery. It can be witnessed and scanned into your chart that day. documented in this encounter [facility] 09-16-2024 History and physical note Images from the original note were not included. HISTORY AND PHYSICAL EXAMINATION SERVICE DATE: 09/16/2024 SERVICE TIME: 7:25 AM PRIMARY CARE PHYSICIAN: No primary care provider on file. REASON FOR VISIT: Praveena Dacosta is a 59 year old female [...] Today, 100% on RA Following with Dr. Pelayo, Last Office Visit: 08/14/24 History of : 2009 - had a wedge resection of her left lung for a mass. FDG avid on PET. Ultimately determined to be pleural based. Mass resected. 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 No malignancy. Had COVID infection 08/31/24, was treated at [facility]. Today she is asymptomatic, Lungs CTA, breathing [...] STOP-Bang Score: 0 (JANIS CPAP compliant ) [id number] Score: Age: <65 Sex: female CHF history: No Hypertension history: Yes Stroke/TIA/thromboembolism history: No Vascular disease history: No Diabetes history: No [id number] Score: 2 ARISCAT Score: Age: 51-80 Preoperative [...] Garcia present: no Lip Bite Test: I Microretrognathia/Micronagthia/ Recessed Chin: No DENTAL Dental findings: teeth intact. [...] fevers. Neuro: No history of TIA's, stroke, DOCUMENT CONTROL COORDINATOR tumor, impaired sensorium, hemiplegia, paraplegia or quadraplegia. [...] or incontinence,, stones or chronic kidney disease COST REPORT CLERK: Negative for abnormal vaginal bleeding, abnormal vaginal [...] Immunization Dates Current Care Gaps Covid-19 Vaccine () Overdue since 03/16/2024 03/29/2021 Imm Admin: COVID-19 original vaccine, age 12+ yr, monovalent (PFIZER-BIONTECH - PURPLE TOP) 03/08/2021 Imm Admin: COVID-19 original vaccine, age 12+ yr, monovalent ([employer]-BIONTECH - PURPLE TOP) No past medical history [...] Prior to Admission medications as of 09/16/24 0655 Medication Sig Last Dose Taking albuterol HFA [...] 12.1 oz (77.0kg) SpO2 100% BMI 28.25 kg/(m^2). General: Alert and oriented, No acute distress Skin: Normal color, no rash, no lesions. HEENT: EOM, pupils equal, round and reactive. Cardiovascular: Normal S1 & S2, no rubs, murmurs or gallops. No JVD. Pulse regular. Lungs: Normal breath sounds, no wheezes or crackles. Abdomen: Soft, non-tender, no rigidity. Extremities: No deformity, no edema or tenderness, no joint swelling or clubbing. Neurological: Normal cognition and motor skills. Pulses: Carotid and radial pulses normal +2. Diagnostic tests reviewed for today's visit: Labs and EKG in Summarization Report in care everywhere [facility] 08/31/24 CMP 08/31/24 Lab Value [...] EKG in Summarization Report in care everywhere [facility]) [facility] Test Date: 2024-08-30 Pat Name: PRAVEENA DACOSTA Department: Room: - Gender: Female Driver Sales: : 1965 Requested By: RAKESH VERNON Order Number: [id number] Reading MD: RAKESH VERNON Measurements Intervals Marshall Rate: 96 P: 65 MN: 174 QRS: 88 QRSD: 68 T: 40 [...] and voices comprehension and compliance. SIGNATURE: Geovany Moreland APRN.CNP PATIENT NAME: Praveena Dacosta DATE: 09/16/2024 TIME: 7:52 AM [facility] 09-16-2024 History and physical note Images from the original note were not included. HISTORY AND PHYSICAL EXAMINATION SERVICE DATE: 09/16/2024 SERVICE TIME: 7:25 AM PRIMARY CARE PHYSICIAN: No primary care provider on file. REASON FOR VISIT: Praveena Dacosta is a 59 year old female [...] Today, 100% on RA Following with Dr. Pelayo, Last Office Visit: 08/14/24 History of : 2009 - had a wedge resection of her left lung for a mass. FDG avid on PET. Ultimately determined to be pleural based. Mass resected. 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 No malignancy. Had COVID infection 08/31/24, was treated at [facility]. Today she is asymptomatic, Lungs CTA, breathing [...] STOP-Bang Score: 0 (JANIS CPAP compliant ) [id number] Score: Age: <65 Sex: female CHF history: No Hypertension history: Yes Stroke/TIA/thromboembolism history: No Vascular disease history: No Diabetes history: No [id number] Score: 2 ARISCAT Score: Age: 51-80 Preoperative [...] Garcia present: no Lip Bite Test: I Microretrognathia/Micronagthia/ Recessed Chin: No DENTAL Dental findings: teeth intact. [...] fevers. Neuro: No history of TIA's, stroke, DOCUMENT CONTROL COORDINATOR tumor, impaired sensorium, hemiplegia, paraplegia or quadraplegia. [...] or incontinence,, stones or chronic kidney disease COST REPORT CLERK: Negative for abnormal vaginal bleeding, abnormal vaginal [...] Immunization Dates Current Care Gaps Covid-19 Vaccine () Overdue since 03/16/2024 03/29/2021 Imm Admin: COVID-19 [...] Prior to Admission medications as of 09/16/24 0655 Medication Sig Last Dose Taking albuterol HFA [...] 12.1 oz (77.0kg) SpO2 100% BMI 28.25 kg/(m^2). General: Alert and oriented, No acute distress Skin: Normal color, no rash, no lesions. HEENT: EOM, pupils equal, round and reactive. Cardiovascular: Normal S1 & S2, no rubs, murmurs or gallops. No JVD. Pulse regular. Lungs: Normal breath sounds, no wheezes or crackles. Abdomen: Soft, non-tender, no rigidity. Extremities: No deformity, no edema or tenderness, no joint swelling or clubbing. Neurological: Normal cognition and motor skills. Pulses: Carotid and radial pulses normal +2. Diagnostic tests reviewed for today's visit: Labs and EKG in Summarization Report in care everywhere [facility] 08/31/24 CMP 08/31/24 Lab Value [...] EKG in Summarization Report in care everywhere [facility]) [facility] Test Date: 2024-08-30 Pat Name: PRAVEENA DACOSTA Department: Room: - Gender: Female Driver Sales: : 1965 Requested By: RAKESH VERNON Order Number: [id number] Reading MD: RAKESH VERNON Measurements Intervals Marshall Rate: 96 P: 65 MN: 174 QRS: 88 QRSD: 68 T: 40 [...] and voices comprehension and compliance. SIGNATURE: Geovany Moreland APRN.SALOMON PATIENT NAME: Praveena Dacosta DATE: 09/16/2024 TIME: 7:52 AM documented in this encounter [facility] 09-15-2024 Telephone encounter Note Spoke with pt scheduled for surgery. [facility] 09-15-2024 Miscellaneous Notes Spoke with pt scheduled for surgery. Images from the original note were not included. documented in this encounter [facility] 09-15-2024 Telephone encounter Note Images from the original note were not included. [facility] 09-12-2024 History and physical note Ms. Dacosta is here today at the request of Elgin Pelayo MD for my opinion regarding abdominal pain. [...] lb 2.9 oz) SpO2 99% BMI 27.79 kg/m General Appearance: Well appearing, alert, in no [...] was discussed with the patient or authorized compliance representative dealer. The patient or authorized compliance representative dealer has agreed to proceed with the sensitive [...] Booklet given. Attending note: Patient seen by Shweta Hsu RN and myself. I personally examined the patient, all components above personally confirmed, note attended where appropriate. History and exam as noted above reviewed. Agree with plan as discussed above. Jono Gonzalez III, MD cc: Referring provider Elgin Pelayo MD [facility] 09-12-2024 History and physical note Ms. Dacosta is here today at the request of Elgin Pelayo MD for my opinion regarding abdominal pain. [...] lb 2.9 oz) SpO2 99% BMI 27.79 kg/m General Appearance: Well appearing, alert, in no [...] was discussed with the patient or authorized compliance representative dealer. The patient or authorized compliance representative dealer has agreed to proceed with the sensitive [...] Booklet given. Attending note: Patient seen by Shweta Hsu RN and myself. I personally examined the patient, all components above personally confirmed, note attended where appropriate. History and exam as noted above reviewed. Agree with plan as discussed above. Jono Gonzalez III, MD cc: Referring provider Elgin Pelayo MD documented in this encounter [facility] 09-11-2024 Telephone encounter Note Called referring providers office and spoke with staff to please send a copy of US or CT that denotes gallstones as no imaging available. Office fax number given [facility] Work Phone: 09-11-2024 Miscellaneous Notes Called referring providers office and spoke with staff to please send a copy of US or CT that denotes gallstones as no imaging available. Office fax number given Message left to call the office as patient is scheduled for cholelithiasis and I do not have any imaging for the appt . Informed that we would need this to be seen as it may not be beneficial for patient if no imaging completed. Informed I have done an update but nothing showing yet. documented in this encounter [facility] 09-11-2024 Telephone encounter Note Message left to call the office as patient is scheduled for cholelithiasis and I do not have any imaging for the appt . Informed that we would need this to be seen as it may not be beneficial for patient if no imaging completed. Informed I have done an update but nothing showing yet. [facility] 08-19-2024 Telephone encounter Note Image has been imported into [employer] and is available to view. [facility] 08-19-2024 Miscellaneous Notes Image has been imported into [employer] and is available to view. Faxed image request to [facility] Confirmation received Images from the original note were not included. Elgin Pelayo MD P Ingrid Pulm Nurse Could we try to obtain images of CT chest 02/13/2024 from [facility] in [facility]? Thanks documented in this encounter [facility] 08-14-2024 Telephone encounter Note Faxed image request to [facility] Confirmation received [facility] 08-14-2024 Telephone encounter Note Images from the original note were not included. Elgin Pelayo MD P Ln Pulm Nurse Could we try to obtain images of CT chest 02/13/2024 from [facility] in [facility]? Thanks [facility] 08-12-2024 Instructions Elgin Pelayo MD - 08/12/2024 2:02 PM EST It [...] office or send me a message through [employer] if you have any questions. Sincerely, Elgin Pelayo MD documented in this encounter [facility] 08-12-2024 History and physical note . [facility] Initial Visit Note Ms. Dacosta is a 59 year old female who presents to the [facility]. Consultation requested by Rakesh Vernon MD for an opinion regarding recurrent bronchitis. [...] getting sick again Evaluated for immunodeficiency by Barrel Raiser at [facility]. On 06/09/2024. Had PFTs. FENO 12ppb. FEV1 [...] personally reviewed by me Data Reviewed from [facility] (in addition to that noted in HPI, and Past histories above): (Data from patient's OSH mychart shown on phone) CBC: last eos 100 (05/2024) IgE: 45 (wnl) PFT: 08/01/2024 Ratio 75% (normal) FEV1 120%, FVC 125% Reported positive bronchodilator response based on FEF 25-75. RV 129% (high) TLC 133% (high) DLCOc 10 3% (normal) CT Chest: 02/13/2024 (OSH, images unavailable) - [facility] in [facility] Lung: Scattered linear densities and calcifications, chronic scarring is favored. Mild dependent atelectasis. No focal parenchymal infiltrates or significant pulmonary nodules. Pleura: No mass, effusion, pneumothorax Lizeth: Small calcified right hilar lymph nodes. Assessment and Plan: Ms. Dacosta is a 59 year old female who presents to the [facility] for evaluation of bronchitis. #Recurrent bronchitis #Asthma [...] oral steroids, ultimately deferred -Should keep her lens edge grinder machine appointment for follow-up testing -I will attempt to obtain images of her outside hospital CT -Follow-up in 3 months with spirometry and nitric oxide before hand Elgin Pelayo MD Pulmonary and Critical Care Staff [facility] Level 4 [facility] 08-12-2024 History and physical note . [facility] Initial Visit Note Ms. Dacosta is a 59 year old female who presents to the [facility]. Consultation requested by Rakesh Vernon MD for an opinion regarding recurrent bronchitis. [...] getting sick again Evaluated for immunodeficiency by Barrel Raiser at [facility]. On 06/09/2024. Had PFTs. FENO 12ppb. FEV1 [...] personally reviewed by me Data Reviewed from [facility] (in addition to that noted in HPI, and Past histories above): (Data from patient's OSH mychart shown on phone) CBC: last eos 100 (05/2024) IgE: 45 (wnl) PFT: 08/01/2024 Ratio 75% (normal) FEV1 120%, FVC 125% Reported positive bronchodilator response based on FEF 25-75. RV 129% (high) TLC 133% (high) DLCOc 10 3% (normal) CT Chest: 02/13/2024 (OSH, images unavailable) - [facility] in [facility] Lung: Scattered linear densities and calcifications, chronic scarring is favored. Mild dependent atelectasis. No focal parenchymal infiltrates or significant pulmonary nodules. Pleura: No mass, effusion, pneumothorax Lizeth: Small calcified right hilar lymph nodes. Assessment and Plan: Ms. Dacosta is a 59 year old female who presents to the [facility] for evaluation of bronchitis. #Recurrent bronchitis #Asthma [...] oral steroids, ultimately deferred -Should keep her lens edge grinder machine appointment for follow-up testing -I will attempt to obtain images of her outside hospital CT -Follow-up in 3 months with spirometry and nitric oxide before hand Elgin Pelayo MD Pulmonary and Critical Care Staff [facility] Level 4 documented in this encounter [facility] 07-02-2024 Telephone encounter Note Needs refill of modafinil called into the sleep clinic [facility] 07-02-2024 Miscellaneous Notes Needs refill of modafinil called into the sleep clinic documented in this encounter [facility] 06-09-2024 History of Presen t illness Narrative Praveena Dacosta is a very pleasant 59 y.o. year old female who comes to the office today with the chief complaint of recurrent infections. Referred by Dr. Rakesh Vernon She keeps having episodes of bronchitis with SOB and need for an inhaler. When she gets sick it will persist with cough and fatigue and will last often as long as 6 weeks. She feels that antibiotics are not helpful for these episodes. She has COVID in Mar of this year for a few weeks and took paxlovid and was sick for a few weeks after. After her BP was low at 87/54. She got better and then within one week she had bronchitis and then had pneumonia but did not have a CXR at that time. She was diagnosed with colitis and got 2 rounds of antibiotics. 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 She has occasional wheeze. She has albuterol inhaler. She was given Trelegy during COVID And she felt this was helpful at that time but stopped it after her COVID. She never smoked. She has not had other infections other than respiratory infections. She finds albuterol helpful for the cough for a few hours. She feels she catches almost any URI that is going around and she has missed 4 weeks of work this year with these symptoms. She has rhinorrhea for the past 2 weeks but not usually. She does not often have nasal symptoms. She has no GERD symptoms. There is no environmental tobacco smoke in her home or candles or incense. 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 Talking will tend to trigger her cough. She will cough more at night. She wears CPAP at night. EXAM The patient appears comfortable in the office today. Lungs are clear to auscultation bilaterally. The oral mucosa is pink and healthy without any lesions or ulcers. The palate elevates in the midline. The nasal mucosa is pink and healthy. There is no epistaxis mucopus or nasal polyposis noted. The nasal septum is approximately in the midline. The skin is clear of any lesions, excoriations, or erythema. IMPRESSION: Wheeze- spirometry performed in the office today under direct physician supervision shows an FEV1 of 127 percent of predicted and mild scooping of the flow volume loop. Exhaled nitric oxide is normal at 12 parts per billion. Her breathing tests are not strongly suggestive of asthma but her clinical history is so we agreed to empirically treat her with inhaled steroid therapy with Trelegy. Recurrent infections-given her current respiratory infections and use of antibiotics we agreed to obtain a humoral immune survey and have her follow up in several weeks to discuss the results. Follow-up in 3 weeks. documented in this encounter [facility] 05-15-2024 Miscellaneous Notes I called Praveena and left a message to call me to schedule an appointment and a surgery with Dr. Lundberg. I left my phone number and extension on her voicemail. Dr. Lundberg saw the patient at [facility] on 05/11/24 and would like to do a colonoscopy in the next month. 05/21/24 I called Praveena to schedule the colonoscopy with Dr. Lundberg however her voicemail is full. I called her emergency contact - / Vanessa - he said she was looking into a referral for a gastroendocrinologist. I will continue to follow up with the patient. I did tell the / Vanessa to have Praveena call me to let me know what she would like to do. documented in this encounter [facility] 05-15-2024 Telephone encounter Note I called Praveena and left a message to call me to schedule an appointment and a surgery with Dr. Lundberg. I left my phone number and extension on her voicemail. Dr. Lundberg saw the patient at [facility] on 05/11/24 and would like to do a colonoscopy in the next month. [facility] 05-15[facility] Telephone encounter Note 05/21/24 I called Praveena to schedule the colonoscopy with Dr. Lundberg however her voicemail is full. I called her emergency contact - / Vanessa - he said she was looking into a referral for a gastroendocrinologist. I will continue to follow up with the patient. I did tell the / Vanessa to have Praveena call me to let me know what she would like to do. [facility] History of Presen t illness Narrative Images from the original note were not included. Chief Complaint Patient presents with Sleep Apnea Subjective Praveena Dacosta, 59 y.o., female here for sleep eval. Patient is here for sleep follow up. The patient states that she had covid, bronchitis, and double pneumonia so she was unable to wear her machine. She is back to wearing her machine now and states that she is sleeping well. She has no problems with her machine. She does not need supplies. The provigil is keeping her awake during the day. If she forgets to take it she will fall asleep at her desk She was forgetting to take the 100mg in the afternoon. She has been able to stay awake in the afternoon. She states that she is just a sleepy person. This seems to be working well for her,. She is compliant with the mask and the machine. NO issues with the mask or the machine. Past Medical History: Diagnosis Date Anxiety High blood pressure (CMS/HCC) Hypothyroid (CMS/HCC) Kidney stones Sleep apnea Past Surgical History: Procedure Laterality Date SECTION, LOW TRANSVERSE MASS EXCISION Left Mass Left Lobectomy - benign ORIF WRIST FRACTURE Right OTHER SURGICAL HISTORY deviated septum RENAL ARTERY STENT Kidney stent No family history on file. Social History Tobacco Use Smoking status: Never Smokeless tobacco: Not on file Substance Use Topics Alcohol use: Not on file Allergies: Amoxicillin General: No fever or chills HEENT: No nasal congestion or runny nose Pulmonary: No shortness of breath or cough Cardiovascular: No chest pain or palpitations GI: No nausea or vomiting : No dysuria or hematuria Musculoskeletal: No new aches or pains or muscle weakness Infectious: no recurrent fevers or infections Dermatologic: No rashes or skin lesions Neurologic: No new headaches or dizziness Vitals: 04/16/24 0935 BP: 120/84 Pulse: 78 SpO2: 99% There is no height or weight on file to calculate BMI. Neurologic exam: General: Normal body habitus, cooperative, pleasant Mental status: Awake, alert to person, place and time. Recent and remote memory are intact. Attention and concentration are normal. Fund of knowledge is appropriate for level of education. HEENT: NC/AT Cranial nerves: CN II: Visual soler full to confrontation. No loss of vision CN III, IV, : pupils equal round and reactive to light. Extraocular movements intact. No ptosis present. CN V: Facial sensation is normal. CN VII: Full and symmetric facial movement. CN VIII: Hearing is normal CN IX and X: Palate elevates symmetrically. CN XI: Shoulder shrug is normal bilaterally. CN XII: Tongue is midline without atrophy or fasciculation. Speech: Clear and fluent no aphasia or dysarthria Pronator drift: Negative bilateral upper extremity Coordination: Intact, no signs of dysmetria Good finger to nose and rapid alternating movements Sensory: Sensation is intact to light, temperature and vibratory touch throughout four extremities. Motor: LUE 5/5 RUE 5/5 LLE 5/5 RLE 5/5 Tone: Physiologic, no tremor, bradykinesia or rigidity DTR: Bilateral Biceps 2/4 Bilateral BR 2/4 Bilateral Patellar 2/4 No spasticity Gait: Normal to casual gait Romberg's Negative Review and summary of old records: Assessment/Plan Diagnoses and all orders for this visit: Hypersomnia - modafinil (Provigil) 200 MG tablet; Take 1 tablet (200 mg) by mouth Daily JANIS (obstructive sleep apnea) Snoring Memory loss 59 year old female with a severe JANIS with an AHI of 33. She does have significant daytime hypersomnia and snoring. She is compliant with the use of the CPAP machine however she still has significant daytime hypersomnia. She did have an MSLT that showed daytime hypersomnia but was not consistent with narcolepsy. She is maintained on Provigil 200 mg during the day she was occasionally using 100 in the afternoon but she forgets to take it so she is just not using it. Overall she is doing well she is controlled with the use of the machine. She did have COVID again and reportedly has some scarring in her lungs. This is monitored by her other doctors. 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 She is compliant using the machine 87 percent of the time greater than 4 hours average nightly usage of 7 hours and 28 minutes and residual AHI of 6 Plan Compliance download reviewed and is as above Continue the Provigil 200 mg in the morning we could consider an increase in the morning pending her course Continue with the use of the CPAP machine Be sure she is getting adequate hours of sleep OARRS reviewed and is as expected The patient was counseled on proper sleep hygiene and adequate hours of sleep. The patient was counseled on the risks of stroke, CT, and sudden with JANIS, along with the need for compliance with the CPAP/BiPAP treatment. Monitor memroy The diagnosis was all discussed with the patient. All questions were answered and they agreed with the treatment plan. Patient will call if there are any new issues or questions. Pt has been fully educated on their diagnosis, treatment options, follow up plan, and return instructions Return to clinic: 3 months documented in this encounter [facility] 08-07-2023 Hospital Discharg e instructions Neelima Peralta DO - 08/07/2023 10:23 AM EST If [...] needed for pain. documented in this encounter [facility] Work Phone: 12-14-2022 Evaluation note Encounter [...] resolved. Patient verbalized understanding of treatment plan [employer] Other Evaluation note* Diagnosis Fall, initial encounter- Primary Closed head injury, initial encounter documented in this encounter [facility] Work Phone: Evaluation note* Diagnosis Hypersomnia- Primary Hypersomnia, unspecified JANIS (obstructive sleep apnea) Obstructive sleep apnea (adult) (pediatric) Snoring Other dyspnea and respiratory abnormality Memory loss [facility] Diagnosis Wheeze- Primary Wheezing Chronic rhinitis Recurrent sinus infections Unspecified sinusitis (chronic) [facility]* Diagnosis Hypersomnia Hypersomnia, unspecified [facility]* Diagnosis Severe persistent asthma without complication- Primary Shortness of breath [facility] Diagnosis Calculus of gallbladder without cholecystitis without obstruction- Primary Calculus of gallbladder without mention of cholecystitis or obstruction [facility] Diagnosis Pre-op examination- Primary Preoperative examination, unspecified Uncomplicated asthma, unspecified asthma severity, unspecified whether persistent Pure hypercholesterolemia, unspecified Hypertension, unspecified type Sleep apnea, unspecified type Biliary calculus of other site without obstruction Hypothyroidism, unspecified type * Assessment & Plan Note - Geovany Moreland APRN.MANAGER POWER - 09/16/2024 7:51 AM EST Associated Problem(s): Hypothyroidism Assessment: stable with current medication regimen * Assessment & Plan Note - Geovany Moreland APRN.CNP - 09/16/2024 7:50 AM EST Associated Problem(s): Cholelithiasis Assessment: presents for surgical intervention * Assessment & Plan Note - Geovany Moreland APRN.CNP - 09/16/2024 7:50 AM EST Associated Problem(s): Asthma Assessment: stable and asymptomatic, uses inhalers. No recent URI. Lungs clear to auscultation Denies use of supplemental oxygen Today, 100% on RA Following with Dr. Pelayo, Last Office Visit: 08/14/24 History of : 2009 - had a wedge resection of her left lung for a mass. FDG avid on PET. Ultimately determined nate pleural based. Mass resected. 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 No malignancy. Had COVID infection 08/31/24, was treated at [facility]. Today she is asymptomatic, Lungs CTA, breathing unlabored * Assessment & Plan Note - Geovany Moreland APRN.CNP - 09/16/2024 7:49 AM EST Associated Problem(s): Sleep apnea, unspecified Assessment: CPAP compliant * Assessment & Plan Note - Geovany Moreland APRN.CNP - 09/16/2024 7:49 AM EST Associated Problem(s): Hypertension Assessment: stable and compliant with current medications Last 5 Encounter BP Readings: Date: BP: 09/16/2024 144/91 09/12/2024 120/70 08/12/2024 123/83 * Assessment & Plan Note - Geovany Moreland APRN.CNP - 09/16/2024 7:49 AM EST Associated Problem(s): Pure hypercholesterolemia, unspecified Assessment: lifestyle modifications encouraged [facility] Diagnosis Calculus of gallbladder without cholecystitis without obstruction- Primary Calculus of gallbladder without mention of cholecystitis or obstruction Pre-op examination- Primary Preoperative examination, unspecified Uncomplicated asthma, unspecified asthma severity, unspecified whether persistent Pure hypercholesterolemia, unspecified Hypertension, unspecified type Sleep apnea, unspecified type Biliary calculus of other site without obstruction Hypothyroidism, unspecified type Calculus of gallbladder without cholecystitis without obstruction Calculus of gallbladder without mention of cholecystitis or obstruction [facility] Diagnosis Pre-op examination- Primary Preoperative examination, unspecified Uncomplicated asthma, unspecified asthma severity, unspecified whether persistent Pure hypercholesterolemia, unspecified Hypertension, unspecified type Sleep apnea, unspecified type Biliary calculus of other site without obstruction Hypothyroidism, unspecified type Post-op pain- Primary Other acute postoperative pain Calculus of gallbladder without cholecystitis without obstruction Calculus of gallbladder without mention of cholecystitis or obstruction [facility]* Diagnosis Pre-op examination- Primary Preoperative examination, unspecified Uncomplicated asthma, unspecified asthma severity, unspecified whether persistent (HCC) Pure hypercholesterolemia, unspecified Hypertension, unspecified type Sleep apnea, unspecified type Biliary calculus of other site without obstruction Hypothyroidism, unspecified type Post-operative state- Primary Other postprocedural status documented in this encounter [facility] note* Diagnosis Onset Date Resolution Status Admit Date Daytime hypersomnolence acute A ugust 2024 11:17am JANIS (obstructive sleep apnea) acute February 18, 2025 11:17am Snoring acute February 18 11:17am [facility] Work Phone: History general Narrative - Reported* Type Description Date Medical History high blood pressure Medical History thyroid disease Surgical History C section Surgical History lobectomy Surgical History wrist surgery Surgical History bowel surgery Hospitalization History see above [employer] Other InstructionsNot on filedocumented in this encounter [facility] SystemInstructionsNot on filedocumented in this encounter [facility] SystemReason for referral (narrative)* Outpatient Procedure (Routine) - Pending Review Specialty Diagnoses / Procedures Referred By Ivon gayle Referred To Contact [facility] Diagnoses Severe persistent asthma without complication Procedures SPIROMETRY WITH DILATOR IF OBSTRUCTED BRNCDILAT RSPSE SPMTRY PRE&POST-BR[place]CDIL[place] Pelayo [place] [id number] [place] [address] Respiratory [place] [address] [place] [address] Referral ID Status Reason Start Date Expiration Date Visits Requested Visits Authorized [id number] Pending Review Auto-Generat ed Referral 08/12/2024 09/11/2025 1 1 * Outpatient Procedure (Routine) - Pending Review Specialty Diagnoses / Procedures Referred By Ivon gayle Referred To Contact [facility] Diagnoses Severe persistent asthma without complication Procedures NITRIC OXIDE, EXHALED NITRIC OXIDE GAS DETERMINATION [place]gin Pelayo MD [id number] [place] [address] [address] Referral ID Status Reason Start Date Expiration Date Visits Requested Visits Authorized [id number] Pending Review Auto-Generat ed Referral 08/12/2024 09/11/2025 1 1 [facility]No reason for referral [facility] Work Phone: Reason for visit Narrative* Auth/Cert (Routine) Specialty Diagnoses / Procedures Referred By Ivon gayle Referred To Contact [facility] AKIKO Diagnoses Calculus of gallbladder without cholecystitis without obstruction Calculus of gallbladder without cholecystitis without obstruction [K80.20] Procedures LAPS SURG CHOLECYSTECTOMY W/CHOLANGIOGRAPHY LAPAROSCOPIC CHOLECYSTECTOMY WITH GRAMS Ambulatory Surgery [address] [place] [address] Phone: tel: Referral ID Status Reason Start Date Expiration Date Visits Re quested Visits Authorized [id number] 1 1 [facility] Summary Purpose Family History Relationship Condition Age at Onset Recorded Date/T brissa brother Hypertension Unknown father Diabetes mellitus Unknown Heart disease Unknown Unknown mother Heart disease Unknown Advance Directives Advance Directive Response Recorded Date/ Time Advance Directives No May 11:53am Chief Complaint and Reason for Visit Reason for Visit Admit Date Daytime hypersomnolence February 18, 2025 11:17am JANIS (obstructive sleep apnea) February 11:17am Snoring February 18, 2025 11: 17am Additional Source Comments INFORMATION SOURCE (unrecogn ized section and content) DATE CREATED AUTHOR 08/14/2022 [facility] DATE CREATED AUTHOR AUTHOR'S ORGANIZ ATION 08/31/2023 [facility] DATE CREATED AUTHOR AUTHOR'S ORGANIZ ATION 04/08/2024 [facility] DATE CREATED AUTHOR AUTHOR'S ORGANIZ ATION 06/12/2024 [facility] DATE CREATED AUTHOR AUTHOR'S ORGANIZ ATION 06/28/2024 [facility] DATE CREATED AUTHOR AUTHOR'S ORGANIZ ATION 09/09/2024 [facility] DATE CREATED AUTHOR AUTHOR'S ORGANIZ ATION 10/19/2024 [facility] REASON FOR VISIT (unrecogniz ed section and content) Reason Comments Fall Hit head and upper b ack; +LOC no thinners Reason Comments Sleep Apnea Reason Comments Allergy Testing Pt c/o of having bro nchitis twice last month and also having colitis, hairs falling out, had covid a couple months ago as well says she can't bounce back like she used to. Wants immune testing. Pt has been off meds for any tasting. Reason Comments Cough Reports getting sick a lot, covid in fall 2019 and fall 2023, then got bronchitis and pneumonia and then bronchitis again. Patient states she was told there is some lung scaring.Seen Allergy in [facility] Reason Comments Image request Reason Comments New Patient Cholelithiasis Reason Comments Pre-Op Visit Reason Comments Schedule Surgery Reason Comments Post Op Follow Up Pod 16 f/u after hav ing cholecystectomy. Scheduled Active and Recently Administ ered Medications (unrecognized section and content) Medication Order 08/05/2023 08/06/2023 08/07/2023 fentaNYL PF (Sublimaze) injection 50 mcg (COMPLETED) 50 mcg, intravenous, Once, On Sun08/07/23 at 0815, For 1 dose 0825 (Given - Provid er: Miya Forte RN) Scheduled Medication Order 09/28/2024 09/29/2024 09/30/2024 acetaminophen 1,000 mg tab(s) (TYLENOL) (CANCELED) 1,000 mg, ORAL, DIRECTED, Starting on Sun09/30/24 at 0800, Until Sun09/30/24 at 0959, pre o[ med, Preprocedure 0744 (Given - Provid er: Josie Ríso RN) ciprofloxacin iv piggyback 400 mg in D5W 200 mL (CIPRO) (COMPLETED) 400 mg, INTRAVENOUS, at 200 mL/hr, Administer over 60 Minutes, ONCE, 1 dose, On Sun09/30/24 at 0900, Antimicrobial indication: Prophylaxis: Purpose of antimicrobial is to prevent infection., Pharmacist may modify dose per [facility] dose optimization consult agreement: Yes, Preprocedure 0920 (Given - Provid er: Eusebio Venegas APRN.HAND INSERTER OPERATOR) promethazine 12.5 mg tab(s) (PHENERGAN) (COMPLETED) 12.5 mg, ORAL, ONCE, 1 dose, On Sun09/30/24 at 0800, Preprocedure 0744 (Given - Provid er: Josie Ríos RN) Continuous Medication Order 09/28/2024 09/29/2024 09/30/2024 lactated ringers iv infusion (CANCELED) 5-30 mL/hr, INTRAVENOUS, CONTINUOUS, Starting on Sun09/30/24 at 0800, Until Sun09/30/24 at 0959, Preprocedure 0752 (New Bag/Syring e/Bottle - Provider: Josie Ríos RN)0912 (Continued by Anesthesia - Provider: Eusebio Venegas APRN.CRNA)0959 (Anesthesia Volume Adjustment - Provider: Eusebio Venegas APRN.CRNA)0959 (Due: Order Ending - Provider: Julien In Adtr - Comment: [Order ends at this time. Document a Stopped action when infusion is complete.]) lactated ringers iv infusion 30 mL/hr, INTRAVENOUS, CONTINUOUS, Starting on Sun09/30/24 at 1030, Until Sun10/01/24 at 0303 1030 (Due) PRN Medication Order 09/28/2024 09/29/2024 09/30/2024 acetaminophen 650 mg tab(s) (TYLENOL) 650 mg, ORAL, NEEDED, 1 dose, Starting on Sun09/30/24 at 1012, Until Sun10/01/24 at 0303, Mild Pain (1-3) - Enteral, If ordered PRN for pain, patient/guardian may elect to receive this medication for higher pain levels INSTEAD of the opioid, if preferred: Yes BUPivacaine (PF) 0.5 % (5 mg/mL) injection (CANCELED) NEEDED, Starting on Sun09/30/24 at 0931, Until Sun09/30/24 at 1000, Intraprocedure 0931 (Given - Provid er: Yesenia Monson PA-C) diphenhydrAMINE 25 mg injection (BENADRYL) 25 mg, INTRAVENOUS, NEEDED, 1 dose, Starting on Sun09/30/24 at 1012, Until Sun10/01/24 at 0303, Nausea/Vomiting - Second Line - Parenteral fentaNYL 50 mcg/mL 50 mcg injection (SUBLIMAZE) 50 mcg, INTRAVENOUS, NEEDED, Starting on Sun09/30/24 at 1012, Until Sun10/01/24 at 0303, FIRST LINE THERAPY for moderate or severe pain, FIRST LINE THERAPY Every5-10 minutes, To a Maximum Total Dose of 250 mcg Hold for respiratory rate less than 10 USE FOR MODERATE PAIN ONLY IF PATIENT IS UNABLE TO TOLERATE ORAL THERAPY 1029 (Given - Provid er: Gosia Sánchez RN) HYDROcodone 5 mg - acetaminophen 325 mg tablet (NORCO) (COMPLETED) 1 tablet, ORAL, NEEDED, 1 dose, Starting on Sun09/30/24 at 1012, Until 3/18/25 at 1047, Moderate Pain (4-6) - Enteral 1047 (Given - Provid er: Gosia Sánchez RN) meperidine (PF) 12.5 mg injection (DEMEROL) 12.5 mg, INTRAVENOUS, EVERY 10 MINUTES NEEDED, 2 doses, Starting on Sun09/30/24 at 1012, Until Sun10/01/24 at 0303, for shivering, May Repeat 12.5 mg in 10 minutes X1 for Continued Shivering NaCl 0.9% irrigation bottle (CANCELED) NEEDED, Starting on Sun09/30/24 at 0931, Until Sun09/30/24 at 1000, Intraprocedure 0931 (Given - Provid er: Yesenia Monson PA-C) Care Teams (unrecognized sec tion and content) Ladies Underwear Operator Relationship Specialty Start Date End Date Rakesh Vernon MD [address] [place] [address] PCP - General 09/06/09 Ladies Underwear Operator Relationship Specialty Start Date End Date Rakesh Vernon MD [address] [place] [address] PCP - General Family Medicine 05/24/23 Ladies Underwear Operator Relationship Specialty Start Date End Date Rakesh Vernon MD [address] [place] [address] PCP - General Family Medicine 05/24/23 Ladies Underwear Operator Relationship Specialty Start Date End Date Rakesh Vernon MD [address] [place] [address] PCP - General Family Medicine 05/24/23 Ladies Underwear Operator Relationship Specialty Start Date End Date Rakesh Vernon MD [address] [place] [address] PCP - General Family Medicine 05/24/23 Ladies Underwear Operator Relationship Specialty Start Date End Date Rakesh Vernon MD [address] [place] [phone] PCP - General Family Medicine 05/24/23 Ladies Underwear Operator Relationship Specialty Start Date End Date Rakesh Vernon MD [address] [place] [phone] PCP - General Family Medicine 05/24/23 Ladies Underwear Operator Relationship Specialty Start Date End Date Rakesh Vernon MD [address] [place] [phone] Referring Family Medicine 08/06/24 Ladies Underwear Operator Relationship Specialty Start Date End Date Rakesh Vernon MD [address] [place] [phone] Referring Family Medicine 08/06/24 Ladies Underwear Operator Relationship Specialty Start Date End Date Rakesh Vernon MD [address] [place] [phone] PCP - General Family Medicine 05/12/24 Ladies Underwear Operator Relationship Specialty Start Date End Date Rakesh Vernon MD [address] [place] [phone] Referring Family Medicine 08/06/24 Ladies Underwear Operator Relationship Specialty Start Date End Date Rakesh Vernon MD [address] [place] [phone] Referring Family Medicine 08/06/24 Ladies Underwear Operator Relationship Specialty Start Date End Date Rakesh Vernon MD [address] [place] [facility] [address] Referring Family Medicine 08/06/24 Ladies Underwear Operator Relationship Specialty Start Date End Date Rakesh Vernon MD [address] [place] [address] Referring Family Medicine 08/06/24 Ladies Underwear Operator Relationship Specialty Start Date End Date Rakesh Vernon MD [address] [place] [address] PCP - General Family Medicine 09/19/24 Rakesh Vernon MD [address] [place] [phone] Referring Family Medicine 08/06/24 Ladies Underwear Operator Relationship Specialty Start Date End Date Rakesh Vernon MD [address] [place] [phone] PCP - General Family Medicine 09/19/24 Rakesh Vernon MD [address] [place] [address] Referring Family Medicine 08/06/24 Ladies Underwear Operator Relationship Specialty Start Date End Date Rakesh Vernon MD [address] [place] [phone] PCP - General Family Medicine 09/19/24 Rakesh Vernon MD [address] [place] [address] Referring Family Medicine 08/06/24 Ladies Underwear Operator Relationship Specialty Start Date End Date Rakesh Vernon MD [address] [place] [address] PCP - General Family Medicine 05/12/24 Team Status: Active Member Role Status Dates Rakesh Vernon MD Primary Care Provider Active Team Status: Inactive Member Role Status Dates Rakesh Vernon MD Primary Care Provider Active Start: February 18, 2025 End: February 18, 2025 Neelima Alvarado APRN Attending Provider Active Start: February 18, 2025 End: February 18, 2025 Source Comments (unrecognize d section and content) In the event this informatio n is protected by the Federal Confidentiality of Alcohol and Drug Abuse Patient Records regulations: The Federal rules restrict any use of the information to criminally investigate or prosecute any alcohol or drug abuse patient.[facility] Health[facility] the event this information is protected by the Federal Confidentiality of Alcohol and Drug Abuse Patient Records regulations: The Federal rules restrict any use of the information to criminally investigate or prosecute any alcohol or drug abuse patient.[facility] HealthIn the event this information is protected by the Federal Confidentiality of Alcohol and Drug Abuse Patient Records regulations: The Federal rules restrict any use of the information to criminally investigate or prosecute any alcohol or drug abuse patient.[facility] HealthIn the event this information is protected by the Federal Confidentiality of Alcohol and Drug Abuse Patient Records regulations: The Federal rules restrict any use of the information to criminally investigate or prosecute any alcohol or drug abuse patient.[facility] HealthIn the event this information is protected by the Federal Confidentiality of Alcohol and Drug Abuse Patient Records regulations: The Federal rules restrict any use of the information to criminally investigate or prosecute any alcohol or drug abuse patient.[facility] HealthIn the event this information is protected by the Federal Confidentiality of Alcohol and Drug Abuse Patient Records regulations: The Federal rules restrict any use of the information to criminally investigate or prosecute any alcohol or drug abuse patient.[facility] HealthIn the event this information is protected by the Federal Confidentiality of Alcohol and Drug Abuse Patient Records regulations: The Federal rules restrict any use of the information to criminally investigate or prosecute any alcohol or drug abuse patient.[facility] HealthIn the event this information is protected by the Federal Confidentiality of Alcohol and Drug Abuse Patient Records regulations: The Federal rules restrict any use of the information to criminally investigate or prosecute any alcohol or drug abuse patient.[facility] HealthIn the event this information is protected by the Federal Confidentiality of Alcohol and Drug Abuse Patient Records regulations: The Federal rules restrict any use of the information to criminally investigate or prosecute any alcohol or drug abuse patient.[facility] HealthIn the event this information is protected by the Federal Confidentiality of Alcohol and Drug Abuse Patient Records regulations: The Federal rules restrict any use of the information to criminally investigate or prosecute any alcohol or drug abuse patient.[facility] Goals (unrecognized section and content) Goals may be documented in a n alternate section FOR RECORDS PERTAINING TO PATIENTS WHO ARE [...] BE BASED ON THE PRIMARY CLINICAL RECORDS. [facility] [employer] [facility]. provides no warranty or guarantee of the accuracy or completeness of information in this document.
--- NOTE | 2025-04-30 08:41 | XR_ITS ---
The [place] [id number] Patient Name: PRAVEENA DACOSTA MRN: [id number] date: 1965 Sex: F Assigned Patient Location: LAB Current Patient Location: LAB Accession/Order Number: [id number] Exam Date: 04/30/2025 08:45 Report Date: 04/30/2025 09:03 At the request of: RAKESH VERNON MD Procedure: XR foot RT min 3V RIGHT FOOT - 3 views CLINICAL DATA: Right fifth toe pain after hitting foot on furniture one week ago. COMPARISON: None AP, lateral and oblique views were obtained. There is no evidence of fracture or dislocation. A small plantar calcaneal spur is seen. There are no significant soft tissue abnormalities. XR/XR foot RT min 3V IMPRESSION: NO ACUTE BONY INJURY. Impression dictated by: Elisha Oliveira M.D. 04/30/2025 9:03 AM Dictation Location: [place] [address] Electronically authenticated by: [id number] Y Date: 04/30/2025 09:03
[2025-04-30 08:49] LABS: Hematocrit 46.2 % (36.0-48.0); Hemoglobin 15.7 g/dL (12.0-16.0); Immature Granulocytes Abs Auto 0.04 10^3/uL (0.00-0.03); Immature Granulocytes Pct Auto 0.6 % (0.0-0.5); Lymphocytes Absolute Auto 1.0 10^3/uL (1.2-3.8); Mean Corpuscular HGB Conc 34.0 g/dL (29.9-35.2); Mean Corpuscular Hemoglobin 30.8 pg (26.7-34.0); Mean Corpuscular Volume 90.6 fL (81.0-99.0); Platelet Count 215 10^3/uL (150-450); Red Blood Count 5.10 10^6/uL (4.20-5.40); White Blood Count 6.4 10^3/uL (4.0-11.0)
[2025-04-30 11:56] LABS: Iron 50.0 ug/dL (50.0-170.0)
[2025-04-30 12:42] LABS: Alanine Aminotransferase 69 U/L (14-59); Albumin Globulin Ratio 1.0; Albumin Level 4.4 g/dL (3.4-5.0); Alkaline Phosphatase 95 U/L (46-116); Anion Gap 13.7; Aspartate Amino Transferase 48 U/L (15-37); Blood Urea Nitrogen 12.0 mg/dL (7.0-18.0); Calcium 9.7 mg/dL (8.5-10.1); Carbon Dioxide 28.6 mmol/L (21.0-32.0); Chloride 100 mmol/L (98-107); Cholesterol 343 mg/dL (<=200); Estimated GFR (African America >60 (>=60 mL/min/1.73m^2); Estimated GFR (Non-African Ame >60 (>=60 mL/min/1.73m^2); Free T3 2.53 pg/mL (2.18-3.98); Globulin 4.4 g/dL; Glucose 105 mg/dL (74-106); HDL Cholesterol 49 mg/dL (40-60); Potassium 4.3 mmol/L (3.5-5.1); Sodium 138 mmol/L (136-145); Thyroid Stimulating Hormone 2.069 uIU/mL (0.358-3.740); Total Protein 8.8 g/dL (6.4-8.2); Triglycerides 876 mg/dL (<=150); VLDL CHOLESTEROL 175.2 mg/dL
== END 2025-04-30 08:11 | disposition home or self-care (01) ==
PROVIDERS: PCP Family Medicine; Visit Provider Family Medicine
DX: Z00.00 Encounter for general adult medical examination without abnormal findings (principal); M79.671 Pain in right foot
CPT/HCPCS: 36415; 73630; 80053; 80061; 83036; 83525; 83540; 83721; 84436; 84443; 84481; 85025

== ENCOUNTER 2025-05-08 07:24 | Outpatient (OUT) | payer BC, SELFPAY ==
--- OUTSIDE RECORDS SUMMARY | 2025-05-08 07:26 | XMS_ITS | Clinical Summary ---
Author Organization [employer] tem Address [id number] [address] [place] [address] Care Team Providers Care Nuclear Radiologist Name Role Phone Sandeep Lundberg MD Primary Care Provider [phone] Social History Tobacco UseTypesPacks/DayYears UsedDateSmoking Tobacco: Never Assessed CommentsUnknownSex and Gender InformationValueDate RecordedSex Assigned at Not on fileLegal GtgXinzof03/28/2024 1:33 PM EDTGender IdentityNot on fileSexual OrientationNot on file Plan of Treatment Health MaintenanceDue DateLast DoneCommentsDepression Gljgthznh38/23/1979Tobacco Rlpovwqha96/23/1979Adult BMI Gtsmszfar45/23/1985DTaP,Tdap and Td Vaccines (1 - Tdap)1986Pap Smear01/06/1988Zoster (Shingles) Vaccine (1 of 2)2017 Influenza Myaywgd2203/16/2025 Medical Devices Not on file Insurance Care Teams Team MemberRelationshipSpecialtyStart DateEnd Date Sandeep Lundberg MD [address] [place] [address] [facility]st[facility]hqw[facility]/28/24
--- OUTSIDE RECORDS SUMMARY | 2025-05-08 07:26 | XMS_ITS | Clinical Summary ---
Author Organization [facility] Address [address] [place] [address] Phone Care Team Providers Care Soubrette Name Role Phone Sandeep Lundberg MD Primary Care Provider [phone] Allergies Active AllergyReactionsCriticalityNoted HlfgCcizkkeqQzoofviqnnwFsavAfk33/06/2023 YoobetbEkvljpuEzj52/23/2024 Medications No known medications Social History Tobacco UseTypesPacks/DayYears UsedDateSmoking Tobacco: Never Assessed CommentsUnknownSex and Gender InformationValueDate RecordedSex Assigned at Not on fileLegal YhpEzvihq41/25/2022 12:01 PM ESTGender IdentityNot on file Sexual OrientationNot on file Last Filed Vital Signs Vital SignReadingTime TakenCommentsBlood Rhksnrie225/9401 10:27 AM EST Fqqwo545308/07/2023 10:27 AM MIMGthhzdyvcpo38.7 ??C (98.1 ??F)08/07/2023 8:01 AM ESTRespiratory Qjmb810408/07/2023 8:01 AM ESTOxygen Lrmexqucem62%08/07/2023 10:27 AM ESTInhaled Oxygen Concentration--Acazkb04.6 kg (180 lb)08/07/2023 8:01 AM EST Jfozyn085.6 cm (5' 6 )08/07/2023 8:01 AM ESTBody Mass Index29.05008/07/2023 8:01 AM EST Plan of Treatment Health MaintenanceDue DateLast DoneCommentsCT Jozhjwxdrlzr1967Colonoscopy 1967Colorectal Cancer Jbvmqfhnh1967FIT-DNA (Cologuard)1967FIT 1967HIV Baxopgelc1967Lipid Panel1965 1812Zakpglvzicznb1967MMR Vaccines (1 of 1 - Standard series)01/06/1968Hepatitis C Mwbcgbdqw37/23/1985 Hepatitis B Vaccines (1 of 3 - 19+ 3-dose series)1986Cervical Cancer Hkadwbekt60/23/1988HPV/Ixkkaw2301/06/1988Pap Smear01/06/1988DTaP/Tdap/Td Vaccines (1 - Tdap)01/05/19893113Zyevifazf46/23/2007Pneumococcal Vaccine (1 of 1 - PCV) 2017Zoster Vaccines (1 of 2)2017Yearly Adult Pwhrlwxb17/10/2024 05/24/2023Influenza Vaccine (#1)5COVID-19 Vaccine (3 - season) 509/, 1Diabetes Njwjxggco26/23/35988508/07/2023HIB VaccinesAged OutNo longer eligible based on patient's age to complete this topic HPV VaccinesAged OutNo longer eligible based on patient's age to complete this topicHepatitis A VaccinesAged OutNo longer eligible based on patient's age to complete this topicIPV VaccinesAged OutNo longer eligible based on patient's age to complete this topicMeningococcal VaccineAged OutNo longer eligible based on patient's age to complete this topicRotavirus VaccinesAged OutNo longer eligible based on patient's age to complete this topic Procedures Procedure NamePriorityDate/TimeAssociated DiagnosisCommentsCOMPREHENSIVE METABOLIC JYXHFTWCP08/23/2024 8:29 AM EST from Last 3 Months or Most Recently Relevant to Health Maintenance Results * (ABNORMAL) Comprehensive metabolic panel (08/07/2023 8:29 AM EST)Component ValueRef RangeTest MethodAnalysis TimePerformed AtPathologist SignatureGlucose 108(H)74 - 99 mg/dL LAB CHEMISTRY METHOD 08/07/2023 9:00 [facility] NMHEomtmn794344 - 145 mmol/L LAB CHEMISTRY METHOD 08/07/2023 9:00 AM [facility] LABPotassium3.83.5 - 5.3 mmol/L LAB CHEMISTRY METHOD 08/07/2023 9:00 AM [facility] EVOGlotjryc06683 - 107 mmol/L LAB CHEMISTRY METHOD 08/07/2023 9:00 AM [facility] SVOZqjlrfuermz8415 - 32 mmol/L LAB CHEMISTRY METHOD 08/07/2023 9:00 AM [facility] LABAnion Oky6562 - 20 mmol/L LAB CHEMISTRY METHOD 08/07/2023 9:00 AM [facility] LABUrea Ynptiybg530 - 23 mg/dL LAB CHEMISTRY METHOD 08/07/2023 9:00 AM [facility] LABCreatinine0.750.50 - 1.05 mg/dL LAB CHEMISTRY METHOD 08/07/2023 9:00 AM [facility] LABeGFR>90>60 mL/min/1.73m*2 LAB CHEMISTRY METHOD 08/07/2023 9:00 AM [facility] LABComment: Calculations of estimated GFR are performed using the 2020 CKD-EPI Study Refit equation without therace variable for the IDMS-Traceable creatinine methods. https://jasn.asnjournals.org/content///ASN.6332599643 Calcium9.48.6 - 10.3 mg/dL LAB CHEMISTRY METHOD 08/07/2023 9:00 AM [facility] LABAlbumin4.73.4 - 5.0 g/dL LAB CHEMISTRY METHOD 08/07/2023 9:00 AM [facility] LABAlkaline Zwaiqnvqyqr9156 - 110 U/L LAB CHEMISTRY METHOD 08/07/2023 9:00 AM [facility] LABTotal Protein7.86.4 - 8.2 g/dL LAB CHEMISTRY METHOD 08/07/2023 9:00 AM [facility] EQUUHA832 - 39 U/L LAB CHEMISTRY METHOD 08/07/2023 9:00 AM [facility] LABBilirubin, Total0.50.0 - 1.2 mg/dL LAB CHEMISTRY METHOD 08/07/2023 9:00 AM [facility] UQIZZT408 - 45 U/L LAB CHEMISTRY METHOD 08/07/2023 9:00 AM [facility] LABComment:Patients treated with Sulfasalazine may generate falsely decreased results for ALT.Specimen (Source) Anatomical Location / LateralityCollection Method / VolumeCollection Time Received TimeBloodVenous blood specimen / UnknownVenipuncture / Unknown 08/07/2023 8:29 AM EST08/07/2023 8:34 AM EST Narrative Authorizing ProviderResult TypeResult StatusAngela C Sales DOLAB BLOOD ORDERABLESFinal ResultPerforming OrganizationAddressCity/State/ZIP CodePhone Number [facility] [address] [place] [phone] from Last 3 Months or Most Recently Relevant to Health Maintenance Insurance * Guarantor: Leida Rodriguez TypeRelation to PatientDate of BirthPhone Billing AddressPersonal/XfkzfrPsus1965 [address] [phone] * Guarantor: Leida Rodriguez TypeRelation to PatientDate of BirthPhone Billing AddressPersonal/MkiduxXarw1965 [address] [address] * Guarantor: Leida Rodriguez TypeRelation to PatientDate of BirthPhone Billing AddressPersonal/PdlradVfqk[address] [address] Care Teams Team MemberRelationshipSpecialtyStart DateEnd Sandeep Lundberg MD [address] [facility] [place] [address] PCP - General09/06/09
--- OUTSIDE RECORDS SUMMARY | 2025-05-08 07:26 | XMS_ITS | Clinical Summary ---
Author Organization [facility] Address [address] [place] [address] Care Team Providers Care Endband Sizer Name Role Phone Sandeep Lundberg MD Primary Care Provider [phone] Allergies Active AllergyReactionsCriticalityNoted LlavLoiigzbqTejjsgqkjbcOkhoIyn40/06/2023 Medications MedicationSigDispense QuantityRefillsLast FilledStart DateEnd DateStatus levothyroxine (Synthroid, Levoxyl) 125 MCG tablet Take 125 mcg by mouth in the morning.05/11/2023ctive lisinopril 10 MG tablet Take 10 mg by mouth in the morning.05/11/2023ctive Ekghrpgaecd-Hgioqwnsf-Tvplrr (Trelegy Ellipta) 100-62.5-25 MCG/ACT aerosol powder Indications:WheezeInhale 1 puff Daily 1 each 5Active modafinil (Provigil) 200 MG tablet Indications:HypersomniaTake 1 tablet (200 mg) by mouth Daily 30 tablet ctive FLUoxetine (PROzac) 10 MG capsule Indications:Weight gainTAKE 1 CAPSULE BY MOUTH EVERY DAY 90 capsule 5Active FLUoxetine (PROzac) 10 MG capsule Indications:Weight gainTake 1 capsule (10 mg) by mouth Daily 90 capsule /Discontinued Active Problems No known active problems Encounters DateTypeDepartmentCare JgwiKmfhbpobkxh76/28/2025Refill [facility] [address] [place] [address] Kadeem Robertson, DO Weight gain03/10/2025Telephone [facility] CEDEÑOGYDanica [address] [place] [address] Kadeem Robertson, DO 02/07/2025Refill [facility] TOUSS[facility] [address] [place] [address] Jennifer Jennings PA Weight gainfrom Last 3 Months Social History Tobacco UseTypesPacks/DayYears UsedDateSmoking Tobacco: Never Tobacco Cessation:Counseling Given: Not Answered CommentsNoSex and Gender InformationValueDate RecordedSex Assigned at WzhbfWmqxyj15/08/2023 3:53 PM ESTLegal DlcXqujjb98/15/2023 8:13 PM EDTGender YbaxzbqxVtpzgx48/08/2023 3:53 PM ESTSexual DitasuoiyouBcsirgte15/08/2023 3:53 PM EST Last Filed Vital Signs Vital SignReadingTime TakenCommentsBlood Ylbdedae827/8404/16/2024 9:35 AM EDT [place]811804/16/2024 9:35 AM EDTTemperature--Respiratory Rate--Oxygen Tvrrthanex69% 04/16/2024 9:35 AM EDTInhaled Oxygen Concentration--Rntjfk41.6 kg (160 lb) 06/09/2024 2:23 PM EVYUbcapi454.6 cm (5' 6 )06/09/2024 2:23 PM ESTBody Mass Index25.8206/09/2024 2:23 PM EST Plan of Treatment DateTypeDepartmentCare Team (Latest Contact Info)Yxehvikwgxc19/18/2025 11:00 AM ESTProcedure Visit [facility]OM[facility] TOUSSAINT [address] [place] [address] [place] [address] Jennifer Jennings PA [address] [place] [address] Health MaintenanceDue DateLast DoneCommentsCT Mfbeooromkae1967Colonoscopy 1967Colorectal Cancer Oirspviqs1967FIT-DNA1967FIT1967 FOBT1967 4244Djkotyhvwzozo1967Pap Smear01/06/1988Cervical Cancer Trkvomxjz96/23/1997HPV/Ernbas0901/05/19971345Orjshggam86/15/56986808/30/2022Influenza Vaccine (#1)2025 Procedures Procedure NamePriorityDate/TimeAssociated DiagnosisCommentsMM TOMOSYNTHESIS SCREENING BI06/29/2023 8:13 AM EST from Last 3 Months or Most Recently Relevant to Health Maintenance Results * MM TOMOSYNTHESIS SCREENING BI (06/29/2023 8:13 AM EST)Anatomical Region LateralityModalityOtherSpecimen (Source)Anatomical Location / Laterality Collection Method / VolumeCollection TimeReceived Time06/29/2023 8:13 AM EST Narrative 06/29/2023 8:14 AM EST [facility] ?[address] ? [place] [address] ? Mammography Report ? Signed ? Patient: OLESYA,LEIDA J ?MR#: [id number] ?? : 1965 ?Acct:[id number] ?? Age/Sex: 58 / F ?ADM Date: 06/27/ ?? Loc: MAMMO ? Attending Dr: Jennifer Jennings ? Ordering Physician: Jennifer Jennings ?Results: ? Date of Service: // ?Follow Up: ? Procedure(s): MM tomosynthesis screening BI ?? Accession Number(s): [id number] ? cc: Jennifer Jennings; Sandeep Lundberg M.D. ? Patient Name: ? LEIDA LAIRD ? MR#: [id number] ? : 1965 ? Exam Date: 06/27/2023 ?? Ordering Doctor: ANNA Jennings . ? RADIOLOGY REPORT ? PROCEDURE: ? MM TOMOSYNTHESIS SCREENING BI ? COMPARISON: ? MAMMO NIKKO DIAG DIG, 03/21/2012. ??MG MAMM SCREEN NIKKO W CAD, ?? 09/10/2017. ? INDICATIONS: ? Screening for malignant neoplasm ? Calculator Name ? NCI Breast Cancer Risk Assessment Tool ?? 5 Year Breast Cancer Risk ? 1.20% ?? Lifetime Breast Cancer Risk ? 8.10% ?? Personal Breast Cancer ?No ?? Personal Ovarian Cancer ? No ?? Treatments ? None ?? Family Cancers ? Aunt-maternal with breast cancer at age ??48. ? LOCATION: ? [facility] ? BREAST COMPOSITION: ? Heterogeneously dense,which may obscure small masses. ? FINDINGS: ? DIAGNOSTIC CATEGORY 2--BENIGN FINDING. NO CHANGE FROM COMPARISON. ? Scattered benign-appearing calcifications are present. ??Scattered ?? benign-appearing nodules are present. ? RIGHT BREAST: ??No significant suspicious finding. ? LEFT BREAST: ??No significant suspicious finding. ? RECOMMENDATIONS: ? ROUTINE MAMMOGRAM AND CLINICAL EVALUATION IN 12 MONTHS. ? PLEASE NOTE: ??A NORMAL MAMMOGRAM DOES NOT EXCLUDE THE POSSIBILITY OF BREAST ?? CANCER. ??A CLINICALLY SUSPICIOUS PALPABLE LUMP SHOULD BE BIOPSIED. ? Dictated by: Kolton Montenegro MD on 06/29/2023 at 08:11 ? Approved by: Kolton Montenegro MD on 06/29/2023 at 08:13 ? Dictated By: ?Kolton Montenegro M.D. ? Signed By: ?06/29/23813 ? DD/ 2 ? TD/TT: ? Slot Shift Manager: Procedure Note Radiology, Radiologist, - 06/29/2023 [facility] [place] [id number] Mammography Report Signed Patient: LEIDA LAIRD JMR#: [id number] : 1965Acct:[id number] Age/Sex: 58 / FADM Date: 06/27/23 Loc: MAMMO Attending Dr: Jennifer Jennings Ordering Physician: Jennifer JenningsResults: Date of Service: 06/27/23Follow Up: Procedure(s): MM tomosynthesis screening BI Accession Number(s): [id number] cc: Jennifer Jennings; Sandeep Lundberg M.D. Patient Name: LEIDA LAIRD MR#: [id number] : 1965 Exam Date: 06/27/2023 Ordering Doctor: ANNA Jennings . RADIOLOGY REPORT PROCEDURE: MM TOMOSYNTHESIS SCREENING BI COMPARISON: MAMMO NIKKO DIAG DIG, 03/21/2012. MG MAMM SCREEN NIKKO W CAD, 09/10/2017. INDICATIONS: Screening for malignant neoplasm Calculator Name NCI Breast Cancer Risk Assessment Tool 5 Year Breast Cancer Risk 1.20% Lifetime Breast Cancer Risk 8.10% Personal Breast Cancer No Personal Ovarian Cancer No Treatments None Family Cancers Aunt-maternal with breast cancer at age 48. LOCATION: [facility] BREAST COMPOSITION: Heterogeneously dense,which may obscure smallmasses. FINDINGS: DIAGNOSTIC CATEGORY 2--BENIGN FINDING. NO CHANGE FROM COMPARISON. Scattered benign-appearing calcifications are present. Scattered benign-appearing nodules are present. RIGHT BREAST: No significant suspicious finding. LEFT BREAST: No significant suspicious finding. RECOMMENDATIONS: ROUTINE MAMMOGRAM AND CLINICAL EVALUATION IN 12 MONTHS. PLEASE NOTE: A NORMAL MAMMOGRAM DOES NOT EXCLUDE THE POSSIBILITY OFBREAST CANCER. A CLINICALLY SUSPICIOUS PALPABLE LUMP SHOULD BE BIOPSIED. Dictated by: Kolton Montenegro MD on 06/29/2023 at 08:11 Approved by: Kolton Montenegro MD on 06/29/2023 at 08:13 Dictated By: Kolton Montenegro M.D. Signed By:06/29/23813 DD/ 2 TD/TT: Slot Shift Manager: Authorizing ProviderResult TypeResult StatusAmy Dick PACLINISYNC IMAGINGFinal Result from Last 3 Months or Most Recently Relevant to Health Maintenance Insurance Care Teams Team MemberRelationshipSpecialtyStart Date Sandeep Lundberg MD PCP - GeneralFamily Qdnxojnf17/9/23
--- OUTSIDE RECORDS SUMMARY | 2025-05-08 07:27 | XMS_ITS | CCD ---
Author Organization [facility] Care Team Providers Care Health Education Assistant Name Role Phone SAULO, DR CAMERON Primary Care Unavailable DAVIE, DR NOBLE Admitting Unavailable DAVIE, DR NOBLE Attending Unavailable DAVIE, DR NOBLE Consulting Unavailable SAULO, DR CAMERON Primary Care Unavailable WEST, DR VANESSA Sanchez Admitting Unavailable WEST, DR VANESSA Sanchez Attending Unavailable WEST, DR VANESSA Sanchez Consulting Unavailable SAULO, DR CAMERON Primary Care Unavailable WEST, DR VANESSA Sanchez Admitting Unavailable KRUPA, DR VANESSA Sanchez Attending Unavailable KRUPA, DR VANESSA Sanchez Consulting Unavailable SAULO, DR CAMERON Primary Care Unavailable SAULO, DR CAMERON Admitting Unavailable SAULO, DR CAMERON Attending Unavailable SAULO, DR CAMERON Consulting Unavailable SAULO, DR CAMERON Primary Care Unavailable SAULO, DR CAMERON Admitting Unavailable SAULO, DR CAMERON Attending Unavailable SAULO, DR CAMERON Consulting Unavailable Mirta Chacko Unavailable Rakesh Vernon MD Primary Care Provider RAKESH VERNON Primary Care Unavailable RAJ DENNISON Attending Unavailable Rakesh Vernon MD Primary Care Provider [phone] DAVE FRANCIS Attending Unavailable BREANN BRISCOE Attending Unavailable Kana Montilla Attending Unavailable Kana Montilla Admitting Unavailable Rakesh Vernon Primary Care Unavailable Rakesh Vernon MD Unavailable Rakesh Vernon MD Primary Care Provider [phone] Rakesh Vernon MD Primary Care Provider JONO GONZALEZ III Referring Unavailable MOON IIIJONO Attending Unavailable ELGIN PELAYO Attending Unavailable RAKESH VERNON Referring Unavailable MOON IIIJONO Attending Unavailable MOON IIIJONO Referring Unavailable RAKESH VERNON Primary Care Unavailable MOON III, SHARATH Admitting Unavailable JONO GONZALEZ III Attending Unavailable JONO GONZALEZ III Referring Unavailable Rakesh Vernon MD Primary Care Provider [phone] Rakesh Vernon MD Primary Care Provider [phone] Neelima Alvarado APRN Attending Provider Allergies Allergy ClassificationReported Allergen(s)Allergy TypeDate of OnsetReaction(s) Facility (4 sources)Codeine; Translations: [CODEINE]Drug Znlkakj69-28-6700ArcknkuhUnp [facility] Repository (1 source)diphenhydrAMINEDrug Btwljop71-13-9858LspOur [facility] (2 sources)ErythromycinDrug Yopzeig32-45-3119JziowkBfg [facility] Repository (10 sources)Penicillins; Translations: [PENICILLINS]Drug allergy (disorder) 53-01-5267Qgtvrrzeozq, [facility] (1 source)PenicillinDrug AllergyrasUniversity [facility] [employer] Other (10 sources)Amoxicillin; Translations: [AMOXICILLIN]Drug Cgristt22-88-8081MpkrMarymount Hospital (11 sources)CodeineDrug Oqbyfrh36-57-8285Qlhgxxa, Other: See Misti, Anila [facility] Work Phone: (1 source)CodeineDrug Gwkhrkz92-65-5396OhuqjlwmjParma Community [facility] Repository (1 source)ErythromycinDrug Cwqjnjs31-00-6141FmmoforhtParma Community General Hospital Repository (1 source)PenicillinsDrug allergy (disorder)78-64-0007BdojtoqssParma Community General Hospital Repository (2 sources)PenicillinsDrug Ogmqkus33-58-3772Gqfcpkfnwbk, [facility] (1 source)PenicillinsDrug Xqkqxor83-92-1062Qnautnijyft, [facility] Medications Current Medications MedicationDrug Class(es)DatesSig (Normalized)Sig (Original)acetaminophen 325 mg / HYDROcodone bitartrate 5 mg oral tablet (3 sources)Opioid AgonistStart: 09-30-2024 End: 99-33-5468teop 1 tablet by mouth every six hours as needed for pain HYDROcodone-acetaminophen (NORCO) 5-325 mg per tablet Indications: Post-op pain Take 1 tablet by mouth every 6 hours as needed for pain for up to 3 days. 12 tablet 09/30/2024 10/03/2024 ActiveStart: 09-30-2024 End: tablet, ORAL, NEEDED, 1 dose, Starting on Sun09/30/24 at 1012, Until Sun09/30/24 at 1047, Moderate Pain (4-6) - Ubutcoravr181939 200 actuat albuterol 0.09 mg/actuat metered dose inhaler (11 sources)beta2-Adrenergic AgonistStart: 44-57-9247qiqo 2 puff(s) by inhalation every four hours as neededalbuterol HFA (VENTOLIN HFA) 90 mcg/actuation inhaler Inhale 2 Puffs as instructed every 4 hours asneeded. 02/13/2024 ActiveStart: 06-10-2020 End: 17-85-1799mkno 1 puff(s) by inhalation every four hours as neededAlbuterol Sulfate 90 mcg/actuation HFA aerosol inhaler Discontinued 1 - 2 PUFF INHALATION Q4H as needed for Shortness Of Breath June 10, 2020 1:00am June 04, 2024 8:43amcyclobenzaprine hydrochloride 10 mg oral tablet (1 source)Muscle RelaxantStart: 19-93-4115kstu 1 tablet by mouth every eight hours as needed for painCyclobenzaprine HCl 10 MG 1 tablet Orally every 8 hours prn back pain for 5 days Dec, ActiveFLUoxetine 10 mg oral capsule (20 sources)Serotonin Reuptake InhibitorStart: 29-83-7232uymq 1 capsule by mouth once dailyFluoxetine 10 mg capsule Active 10 MG PO Daily June 04, 2024 1:00am FreeTextSig: Oral; Note: Source Status: Taking; Qty: 90 Capsule; Provider: Ginna Kirby ( ) Complies with drug lsqykaq06 actuat fluticasone furoate 0.1 mg/actuat / umeclidinium 0.0625 mg/actuat / vilanterol 0.025 mg/actuat dry powder inhaler (4 sources)Anticholinergic, Corticosteroid, beta2-Adrenergic AgonistStart: 06-09-2024 End: 60-97-5537drok 1 puff(s) by inhalation once daily Wmcmhngybkx-Ewwtqwqjx-Jnxcxi (Trelegy Ellipta) 100-62.5-25 MCG/ACT aerosol powder Indications: Wheeze Inhale 1 puff Daily 1 each 06/09/2024 06/09/2025 Onptab98 actuat formoterol fumarate 0.005 mg/actuat / mometasone furoate 0.1 mg/actuat metered dose inhaler (10 sources)Corticosteroid, beta2-Adrenergic AgonistStart: 08-12-2024 End: 96-08-4984rmqq 2 puff(s) by inhalation twice dailymometasone-formoterol (DULERA) 100-5 mcg/actuation inhaler Indications: Severe persistent asthma wit hout complication (HCC) Inhale 2 Puffs as instructed two times a day. 13 g 2 08/12/2024 11/10/2024 Activelevothyroxine sodium 0.125 mg oral tablet (20 sources)l-ThyroxineStart: 38-17-6043tsun 1 tablet by mouth once daily Levothyroxine 125 mcg tablet Active 125 MCG PO Daily February 18, 2025 12:00am Complies with drug therapyStart: 53-26-3179rymo 1 tablet by mouth once daily levothyroxine (SYNTHROID) 125 mcg tablet Take 1 tablet by mouth once daily. 05/11/2023 ActiveStart: 06-10-2020 End: 63-94-1026saqo 1 tablet by mouth once dailyLevothyroxine 150 mcg tablet Discontinued 150 MCG PO Daily June 10, 2020 1:00am February 18, 2025 10:24amLevothyroxine Sodium 125 MCG Oral for 90 Days Activelisinopril 10 mg oral tablet (20 sources)Angiotensin Converting Enzyme InhibitorStart: 95-50-3999rmho 1 tablet by mouth once dailyLisinopril 10 mg tablet Active 10 MG PO Daily June 04, 2024 1:00am FreeTextSig: Oral; Note: Source Status: Taking; Qty: 90 Tablet; Provider: Ginna Kirby ( ) Complies with drug therapy Lisinopril 10 MG Oral for 90 Days Activemodafinil 200 mg oral tablet (20 sources)Sympathomimetic-like AgentStart: 12-31-2024 End: 61-16-7377clqt 1 tablet by mouth once daily in the morningModafinil 200 mg tablet Active 200 MG PO Daily 30 30 February 18, 2025 11:45am FreeTextSig: TAKE 1 TABLET BY MOUTH IN THE MORNING daily Oral; Note: Source Status: Taking; Refills: 1; Qty: 30 Each; Provider: PENNY ACOSTA Complies with drug therapy Start: 16-41-8964dpqv 1 tablet by mouth once dailymodafinil (Provigil) 200 MG tablet Indications: Hypersomnia Take 1 tablet (200 mg) by mouth Daily 30 tablet 2 07/02/2024 ActiveStart: 04-19-2023 End: 96-70-3972cegz 1 tablet by mouth once daily in the morningModafinil 200 mg tablet Discontinued 200 MG PO Daily June 04, 2024 1:00am December 31, 2024 4:01pm FreeTextSig: TAKE 1 TABLET BY MOUTH IN THE MORNING daily Oral; Note: Source Status: Taking; Refills: 1; Qty: 30 Each; Provider: PENNY ACOSTA Completed/Discontinued Medications MedicationDrug Class(es)DatesSig (Normalized)Sig (Original)acetaminophen 325 mg oral tablet (2 sources)Start: 09-30-2024 End: 80-44-2744879 mg, ORAL, NEEDED, 1 dose, Starting on Sun09/30/24 at 1012, Until Sun10/01/24 at 0303, Mild Pain (1-3) - Enteral, If ordered PRN for pain, patient/guardian may elect to receive this medication for higher pain levels INSTEAD of the opioid, if preferred: YesStart: 09-30-2024 End: 51,000 mg, ORAL, DIRECTED, Starting on Sun09/30/24 at 0800, Until Sun09/30/24 at 0959, pre o[ med, KlpcwpsfbguwFqi7292-Ptq Hup-Qvvv-Bii-Asb-C (1 source)Osmotic Laxative, Vitamin CStart: 05-21-2024 End: 48-31-7062Fsq5045-Sod Doo-Axaf-Jfd-Asb-C (Plenvu) 140-9-5.2 gram powder in packet, sequential Discontinued 140 ML PO .COMPLEX 1 May 21, 2024 1:00am February 18, 2025 10:24am First does at 4pm the day before the colonoscopy; second dose at 11pm the night before the colonoscopy.calcium chloride 0.0014 meq/ml / potassium chloride 0.004 meq/ml / sodium chloride 0.103 meq/ml / sodium lactate 0.028 meq/ml injectable solution (2 sources)Start: 09-30-2024 End: 79-70-0571lkwb 30 mL intravenously every hour30 mL/hr, INTRAVENOUS, CONTINUOUS, Starting on Sun09/30/24 at 1030, Until Sun10/01/24 at 0303codeine phosphate 2 mg/ml / promethazine hydrochloride 1.25 mg/ml oral solution (1 source)Opioid Agonist, PhenothiazineStart: 06-10-2020 End: 23-18-4074kwfu 1 mL by mouth every six hours as needed for cough Promethazine-Codeine 6.25-10 mg/5 mL syrup Discontinued 10 ML PO Q6H as needed for cough 120 4 June 10, 2020 1:00am June 04, 2024 8:44am diphenhydrAMINE (1 source)Histamine-1 Receptor AntagonistStart: 09-30-2024 End: 69-76-813401 mg, INTRAVENOUS, NEEDED, 1 dose, Starting on Sun09/30/24 at 1012, Until Sun10/01/24 at 0303, Nausea/Vomiting - Second Line - Parenteral1 ml fentaNYL 0.05 mg/ml injection (2 sources)Opioid AgonistStart: 09-30-2024 End: 14-03-982207 mcg, INTRAVENOUS, NEEDED, Starting on Sun09/30/24 at 1012, Until Sun10/01/24 at 0303, FIRST LINE THERAPY for moderate or severe pain, FIRST LINE THERAPY Every5-10 minutes, To a Maximum Total Dose of 250 mcg Hold for respiratory rate less than 10 USE FOR MODERATE PAIN ONLY IF PATIENT IS UNABLETO TOLERATE ORAL THERAPYStart: 08-07-2023 End: 34-59-4085zfremGPL PF (Sublimaze) injection 50 mcghydroCHLOROthiazide 25 mg oral tablet (1 source)Thiazide DiureticStart: 06-10-2020 End: 45-88-8075jwqi 1 tablet by mouth once dailyHydrochlorothiazide 25 mg tablet Discontinued 25 MG PO Daily June 10, 2020 1:00am June 04, 2024 8:44amKetorolac Tromethamin (1 source)Start: 23-59-0310Izsegfwgb Tromethamin Dec, 60 mglevoFLOXacin 750 mg oral tablet (1 source)Quinolone AntimicrobialStart: 06-10-2020 End: 80-72-2317crih 1 tablet by mouth once dailyLevofloxacin 750 mg tablet Discontinued 750 MG PO Daily June 10, 2020 1:00am June 04, 2024 8:43am1 ml meperidine hydrochloride 50 mg/ml cartridge (1 source)Opioid AgonistStart: 09-30-2024 End: 32-60-719259.5 mg, INTRAVENOUS, EVERY 10 MINUTES NEEDED, 2 doses, Starting on Sun09/30/24 at 1012, Until Sun10/01/24 at 0303, for shivering, May Repeat 12.5 mg in 10 minutes X1 for Continued ShiveringpredniSONE 10 mg oral tablet (1 source)Start: 06-10-2020 End: 20-18-5668bvaj 5 tablets by mouth once dailyPrednisone 10 mg tablet Discontinued 50 MG PO Daily June 10, 2020 1:00am June 04, 2024 8 :43am dose packpromethazine hydrochloride 12.5 mg oral tablet (1 source)PhenothiazineStart: 09-30-2024 End: 25-90-6342tkqq 1 dose by mouth once12.5 mg, ORAL, ONCE, 1 dose, On Sun09/30/24 at 0800, PreprocedureStart: 09-30-2024 End: 86-96-0012ixfu 1 dose by mouth once12.5 mg, ORAL, ONCE, 1 dose, On Sun09/30/24 at 0800, Preprocedure0.25 mg, 0.5 mg dose 1.5 ml semaglutide 1.34 mg/ml pen injector (5 sources) End: 54-81-4635ibtpxmfgiem (Ozempic) 2 MG/1.5ML solution pen-injector Inject under the skin 06/09/2024 DiscontinuedSemaglutide (1 source)Start: 02-18-2025 End: 08-24-2461bukimy 2 mg by subcutaneous injection every weekSemaglutide 2 mg/dose (8 mg/3 mL) pen injector Discontinued 2 MG SUBCUT every week February 182:00am February 18, 2025 11:24am Problems Active Problems Problem ClassificationProblemDateDocumented DateEpisodic/ChronicAsthma (9 sources)Uncomplicated severe persistent asthma; Translations: [Severe persistent asthma, uncomplicated]Onset: 562352-82-5043HybfxzmIthbfpu tract disease (11 sources)Cholelithiasis without obstruction; Translations: [Calculus of gallbladder without cholecystitis without obstruction]Onset: 09-15-2024 56-34-8363GgmffzcfXxezybexy of lipid metabolism (8 sources)Hyperlipidemia, unspecified; Translations: [Pure hypercholesterolemia]Onset: 153577-34-2209HhslvyyViyduhmpb hypertension (8 sources)Hypertensive disorder; Translations: [Essential (primary) hypertension]Onset: 146888-75-8333RmjhhamLodwpan and fatigue (1 source)Other fatigue; Translations: [OTHER FATIGUE]Onset: 84-55-3518Ihpqohqg Nutritional deficiencies (1 source)Vitamin D deficiency, unspecified; Translations: [VITAMIN D DEFICIENCY UNSPECIFIED]Onset: 26-25-8087EcnsidjDzhgz gastrointestinal disorders (1 source)Change in bowel habit; Translations: [Change in bowel habit]Onset: 51-31-7894SmoxaqzuUodgm injuries and conditions due to external causes (1 source)Closed injury of head; Translations: [Unspecified injury of head, initial encounter]70-12-3523IlqlivitLwmni lower respiratory disease (4 sources)Snoring; Translations: [Snoring]32-02-7520AnqtustaNgqio lower respiratory disease (2 sources)Wheezing; Translations: [Wheezing]79-04-4423EljtjjpvWaymf lower respiratory disease (1 source)Dyspnea; Translations: [Shortness of breath]67-55-9972AvahuifwCvsqk nervous system disorders (1 source)Narcolepsy; Translations: [Narcolepsy without cataplexy]12-31-2024 ChronicOther nervous system disorders (1 source)Postoperative pain ; Translations: [Other acute postprocedural pain] 02-70-8517GeoykdckIlrmu upper respiratory disease (2 sources)Chronic rhinitis; Translations: [Chronic rhinitis]11-04-0837Vwpcumf Other upper respiratory infections (2 sources)Recurrent sinusitis; Translations: [Chronic sinusitis, unspecified] 37-94-9376QeokienWiqockrp codes; unclassified (4 sources)Hypersomnia; Translations: [Hypersomnia, unspecified]04-16-2024 ChronicResidual codes; unclassified (4 sources)Obstructive sleep apnea syndrome; Translations: [Obstructive sleep apnea (adult) (pediatric)]98-86-6403UkvqbanTsnjmuwg codes; unclassified (7 sources)Sleep apnea; Translations: [Sleep apnea, unspecified]Onset: 036505-53-5319HsqhkntZdeucdqr codes; unclassified (2 sources)Daytime somnolence; Translations: [Other hypersomnia]02-18-2025 ChronicResidual codes; unclassified (2 sources)Amnesia; Translations: [Other amnesia]95-32-6826BdaimxjvTmjhfhom codes; unclassified (1 source)Postoperative state; Translations: [Other specified postprocedural states]68-52-0280ZowhtbeuUkehswd and strains (1 source)Strain of muscle, fascia and tendon of lower back, initial encounter EpisodicThyroid disorders (8 sources)Hypothyroidism, unspecified; Translations: [Hypothyroidism]Onset: 224008-44-7320AblcckrWoxphyvhwmaw (3 sources)CONTACT W/AND (SUSP) EXPOS COVID-19; Translations: [CONTACT W/AND (SUSP) EXPOS COVID-19]Onset: 96-95-7589Jjarapqcgajz (1 source)COUGH, UNSPECIFIED; Translations: [COUGH, UNSPECIFIED]Onset: 59-19-9869Qjxwp infection (1 source)Disease caused by 2019-nCoV; Translations: [COVID-19]06-10-2020 Episodic Past or Other Problems Problem ClassificationProblemDateDocumented DateEpisodic/ChronicE Codes: Fall (3 sources)Fall; Translations: [Unspecified fall, initial encounter]Onset: 425910-27-1369XsflpkkgRqliczftnijwa and screening for infectious disease (1 source)Encounter for screening for human papillomavirus (HPV); Translations: [ENC SCREENING HUMAN PAPILLOMAVIRUS]Onset: 25-54-0630EsblakzoZzunf circulatory disease (1 source)Other specified symptoms and signs involving the circulatory and respiratory systems; Translations:[OTH SPEC SX SIGNS INVLV CIRC RS]Onset: 50-46-2434JqtnndwdFnxsl injuries and conditions due to external causes (2 sources)Unspecified injury of head, initial encounter; Translations: [Unspecified injury of head, initial encounter]Onset: 41-58-4648LpbpmjtwEkqqu screening for suspected conditions (not mental disorders or infectious disease) (4 sources)Encounter for screening for malignant neoplasm of cervix; Translations: [ENC SCREENING MALIG NEOPLASM CERV]Onset: 33-86-4148Vlbyhvsk Unclassified (1 source)CONTACT W/AND (SUSP) EXPOS COVID-19; Translations: [CONTACT W/AND (SUSP) EXPOS COVID-19]Onset: 01-04-2022 Results Test NameValueInterpretationReference RangeFacilityCNOVon 46-57-7059CKWEDtpppx Visit (GENSAM) PRAVEENA DAOCSTA ([id number]) 1965 F Date Time Provider Department 10/16/24 [...] III, MD Referring Provider: JONO GONZALEZ III [[id number]] Allergies As of Date: 10/16/2024 Noted Allergy [...] Encounter Status:Closed by JONO GONZALEZ III on 10/16/24[facility] 20-21-2026ZTCOAmkpiemdg (GENSAV) PRAVEENA DACOSTA ([id number]) 1965 F Date Time Provider Department 10/02/24 SHWETA HSU During your visit today, we recorded the following information about you: Shweta Hsu RN 10/02/2024 9:23 AM Signed POST OP [...] Date Reviewed: 09/30/2024 Reviewed by: Gosia Sánchez, RONALD - Fully Assessed Prescriptions as of 10/02/2024 [...] 09/15/2024 Encounter Status:Closed by SHWETA HSU on 10/02/24[facility] POSTPROC EVALon 75-31-7479SLVN POSTPROC EVALHNO ID: [id number] Author: GALEN MOON MD Service: Anesthesiology Author Type: Anesthesiologist Type: Anesthesia Postprocedure Evaluation Filed: 09/30/2024 10:42 Note Text: POST ANESTHESIA EVALUATION NOTE : 1965 Procedure Summary Date: 09/30/24 Room / Location: [address] Anesthesia Start: 911 Anesthesia Stop: 958 [...] September 30, 2024 TIME: 10:41 AM CSN: [id number] Hospital PRE-OPon 54-26-3987NJCI PRE-OPHNO ID: [id number] Author: GALEN MOON MD Service: Anesthesiology Author Type: Anesthesiologist Type: Anesthesia Preprocedure Evaluation Filed: 09/30/2024 08:06 Note Text: ANESTHESIOLOGY DAY OF SURGERY NOTE : 1965 Procedure Information Date/Time: 09/30/2430 Procedure: LAPAROSCOPIC CHOLECYSTECTOMY WITH GRAMS (Gallbladder) Location: [place] [address] / [facility] Surgeons: Jono Gonzalez III, MD [...] and consent discussed: yes. Patient / Responsible Republican agrees to proceed: yes Patient / Surrogate [...] none. Vitals Value Taken Time BP 112/73 09/30/24738 Pulse 72 09/30/24738 Resp 16 09/30/24738 Temp 36.4 ?C (97.5 [...] September 30, 2024 TIME: 8:06 AM CSN: [id number] Health COMPLETEon 78-70-4907SHW COMPLETEVentricular Rate : 56 BPM Atrial Rate : 56 BPM P-R Interval : 166 ms QRS Duration : 78 ms Q-T Interval : 446 ms QTC Calculation(Bazett) : 430 ms Calculated P [place] : 20 degrees Calculated R [place] : 46 degrees Calculated T [place] : 21 degrees SINUS BRADYCARDIA OTHERWISE NORMAL ECG Confirmed by JAMISON KEY DO ([id number]) on 10/05/2024 10:51:14 AM NAME : PRAVEENA DACOSTA PID : [id number] : 1965 Gender : Female Race : Unknown ORD : [id number] Procedure Date : Sep 30 2024 10:28:37 Edit Date : Oct 05 2024 10:51:15 Diagnosis: SINUS BRADYCARDIA OTHERWISE NORMAL ECG Confirmed by JAMISON KEY DO ([id number]) on 10/05/2024 10:51:14 AM Test Reason : Chest Pain Location : 145 : [address] [id number] Overread By : JAMISON KEY DO Edited By : JAMISON KEY DO Referred By : JONO GONZALEZ III [facility] : [facility] PHYSICALon 09-30-2024 HISTORY PHYSICALHNO ID: [id number] Author: JONO GONZALEZ III, MD Service: General [...] [place] DATE: September 30, 2024 TIME: 8:39 AMNormalBlanchard Valley Health SystemOPERATIVE NOon 97-59-7379PQNEOTRTU NOHNO ID: [id number] Author: JONO GONZALEZ III, MD Service: General Surgery Author Type: Physician Type: Operative Report Filed: 09/30/2024 09:46 Note Text: OPERATIVE REPORT LOG ID: [id number] SURGERY/PROCEDURE DATE: 09/30/2024 INCISION/PROCEDURE START TIME: 9:27 AM INCISION CLOSE/PROCEDURE END TIME: 9:44 AM SURGEON: Jono Gonzalez III, MD MOUNTING MACHINE OPERATOR: Yesenia Monson PA-C OPERATION: Laparoscopic cholecystectomy (79937). ANESTHESIA: GETA and 20 mL of 0.5% [...] [place] DATE: September 30, 2024 TIME: 9:45 AMNormalBlanchard Valley Health SystemPathology biopsy report Bobo (Tiss) on 96-97-1146ZX DISCLAIMERNormalCUniversity Hospitals Samaritan Medical CenterComment on above:Order Comment: Specimen Type: TISSUE SPECIMENOrdering Facility: [facility] Address: [address] [place], [place] [address]Xblmjd Comment: Laboratory Developed Test (LDT) Disclaimer: Performance characteristics of immunohistochemical, immunofluorescent, and chromogenic in-situ hybridization tests have been determined by the performing laboratory within [facility]'s Willy Dickson Pathology and Laboratory Medicine Department ([facility], [facility], [facility], [facility], [facility], [facility], or [facility]) in a manner consistent with CLIA requirements. One or more of these tests may not have been cleared or approved by the FDA. [facility] is regulated under CLIA as qualified to perform high- complexity testing. These tests are used for clinical purposes. These should not be regarded asinvestigational or for research. Positive and negative controls stain appropriately.Performed By: #### [id number] ####[facility] LABIA [id number] [place] [id number] [facility] CENTERCASE REPORTNoKindred Healthcare on above:Order Comment: Specimen Type: TISSUE SPECIMENOrdering Facility: [facility] Address: [address] [place], [place] [address]Result Comment: Surgical Pathology Report Case: [id number] Authorizing Provider: Jono Gonzalez III, MD Collected: 09/30/2024 09:31 AM Ordering Location: Ambulatory Surgery Received: 09/30/2024 10:52 AM Pathologist: Darcy Hernández MD, PhD Specimen: GallbladderPerformed By: #### [id number] ####[facility]ENT[facility] HOSPITALIA [id number] [address]ETCLINICAL HISTORYNoKindred Healthcare on above:Order Comment: Specimen Type: TISSUE SPECIMENOrdering Facility: [facility] Address: [address] [place], [place] [address]Result Comment: Pre-op diagnosis: Calculus of gallbladder without cholecystitis without obstruction [K80.20] Performed By: #### [id number] ####[facility] LABIA [id number] [address] FINAL DIAGNOSISNoKindred Healthcare on above:Order Comment: Specimen Type: TISSUE SPECIMENOrdering Facility: [facility] Address: [address] [place], [place] [address]Result Comment: A. Gallbladder, cholecystectomy: - Chronic cholecystitis with cholelithiasis and cholesterolosis. at 1550 EDTPerformed By: #### [id number] ####[facility] LABCLIA [id number] [address] STATES OF [facility] MIAMISBURGFINAL PERFORMING LAB NormalMagruder Memorial Hospital on above:Order Comment: Specimen Type: TISSUE SPECIMENOrdering Facility: [facility] Address: [address] [place], [place] [address]Result Comment: Diagnostic interpretation performed at: [facility], [address] [place], [place] [address]k [place] [address] CLIA# [id number] Game Warden: MARYLIN Rodriguezerformed By: #### 08651-5 ####[facility] LABCLIA [id number] [address]ETGROSS DESCRIPTIONA. GallbladderNormalCKettering Memorial Hospital on above:Order Comment: Specimen Type: TISSUE SPECIMENOrdering Facility: [facility] Address: [address] [place], [place] [address]Result Comment: Received in formalin labeled gallbladder is [...] The cystic duct lumen is not obstructed. Assistant Maintenance Manager sections are submitted in one cassette. [facility] 09/30/24 5:34 PM Gross examination performed at [facility], [address] [place], [place] [address]Performed By: #### 63882-5 ####[facility] LABIA [id number] [place] [address] [place] HISTORY PHYSICALon [id number] PHYSICALHNO ID: [id number] Author: GEOVANY MORELAND APRN.AUTOMOTIVE ELECTRICIAN HELPER Service: ? Author Type: Nurse Practitioner Type: [...] Had COVID infection 08/31/24, was treated at [facility] Today she is asymptomatic, Lungs CTA, breathing unlabored Cholelithiasis Assessment: presents for surgical intervention Hypothyroidism Assessment: stable with current medication regimen ANESTHESIA FINDINGS: Intubation History: No history of difficult intubation Significant Anesthesia Considerations: none Airway History: No history of difficult airway Santzio Activity Status Index: METS: Walk indoors, such [...] STOP-Bang Score: 0 (JANIS CPAP compliant ) [id number] Score: Age: <65 Sex: female CHF history: No Hypertension history: Yes Stroke/TIA/thromboembolism history: No Vascular disease history: No Diabetes history: No [id number] Score: 2 ARISCAT Score: Age: 51-80 Preoperative [...] fevers. Neuro: No history of TIA's, stroke, ASSISTANT PRINCIPAL tumor, impaired sensorium, hemiplegia, paraplegia or quadraplegia. No neurological symptoms or problems. Respiratory: Positive for JANIS CPAP compliant, asthma , Negative for Current cough, Pneumonia within 6 weeks (date) Cardiovascular: Positive for: HTN, HLD, Negative for CAD, Chest Pain, CHF, DVT/PE GI: Positive for Symptomatic cholelithiasis, Negative for Nausea, Vomiting, Abdominal pain, Difficulty swallowing : No (more content not included)...NormalBlanchard Valley Health SystemCNPNon [id number] (GENSAV) PRAVEENA DACOSTA ([id number]) 1965 F Date Time Provider Department 09/15/24 [...] obstruction [K80.20] Order(s):SURGICAL REQUEST - ELECTIVE (02/2020) [7757437] Order #: [id number]: 1 Prescriptions as of 09/17/2024 - albuterol [...] 09/15/2024 Encounter Status:Closed by MARILOU ROGER on 09/17/24[facility] 07-01-1976YGGSDbjbye Visit (GENSAV) PRAVEENA DACOSTA ([id number]) 1965 F Date Time Provider Department 09/12/24 [...] discussed with the patient or authorized business banking representative. The patient or authorized business banking representative has agreed to proceed with the [...] Encounter Status:Closed by JONO GONZALEZ III on 09/12/24[facility] HospitalTORY PHYSICALon [id number] PHYSICALHNO ID: [id number] Author: JONO GONZALEZ III, MD Service: ? [...] discussed with the patient or authorized business banking representative. The patient or authorized business banking representative has agreed to proceed with the [...] III, MD cc: Referring provider Elgin Pelayo MDCleveland Clinic Children's Hospital for RehabilitationPNon [id number] (GENSAM) PRAVEENA DACOSTA ([id number]) 1965 F Date Time Provider Department 09/11/24 [...] (None) Encounter Status:Closed by SHWETA HSU on 09/11/24[facility] [id number] (PULMLO) PRAVEENA DACOSTA ([id number]) 1965 F Date Time Provider Department 08/14/24 ELGIN PELAYO PULMLO During your visit today, we recorded the following information about you: Mattie Link MA 08/14/2024 10:59 AM Signed Elgin Pelayo MD P Pul Nurse Could we try to obtain images of CT chest 02/13/2024 from [facility] in [facility]? Thanks Mattie Link MA 08/14/2024 11:49 AM Signed Faxed image request to [facility] Confirmation received Mattie Link MA 08/19/2024 8:52 AM Signed Image has been imported into [employer] and is available to view. Elgin Pelayo [...] (None) Encounter Status:Closed by MATTIE LINK on 08/19/24[facility] [id number] Visit (PULMLO) OLESYAPRAVEENA ([id number]) 1965 F Date Time Provider Department 08/12/24 1:00 PM ELGIN PELAYO PULMLO During your visit today, we recorded the following information about you: Pulse Blood pressure Weight 83/minute 123/83 77.2 kg Elgin Pelayo MD 08/14/2024 10:50 AM Signed . [facility] [place] [facility] Initial Visit Note Ms. Dacosta is a 59 year old female who presents to the [facility] [place]. Consultation requested by Rakesh Vernon MD for [...] getting sick again Evaluated for immunodeficiency by [employer] at [facility]. On 06/09/2024. Had PFTs. FENO [...] tobacco: Never Never smoker. Worked at a [employer] facility for 27 years. Works in the [...] personally reviewed by me Data Reviewed from [facility] (in addition to that noted in HPI, and Past histories above): (Data from patient's OSH mychart shown on phone) CBC: last eos 100 (05/2024) IgE: 45 (wnl) PFT: 08/01/2024 Ratio 75% (normal) FEV1 120%, FVC 125% Reported positive bronchodilator response based on FEF 25-75. RV 129% (high) TLC 133% (high) DLCOc 10 3% (normal) CT Chest: 02/13/2024 (OSH, images unavailable) - [facility] in [facility] Lung: Scattered linear densities and calcifications, chronic scarring is favored. Mild dependent atelectasis. No focal parenchymal infiltrates or significant pulmonary nodules. Pleura: No mass, effusion, pneumothorax Lizeth: Small calcified right hilar lymph nodes. Assessment and Plan: Ms. Dacosta is a 59 year old female who presents to the [facility] [place] for evaluation of bronchitis. #Recurrent bronchitis #Asthma (more content not included)...NormalBlanchard Valley Health SystemHISTORY PHYSICALon [id number] PHYSICALHNO ID: [id number] Author: ELGIN PELAYO MD Service: ? Author Type: Physician Type: H&P Filed: 08/14/2024 10:50 Note Text: . [facility] [place] [facility] Initial Visit Note Ms. Dacosta is a 59 year old female who presents to the [facility] [place]. Consultation requested by Rakesh Vernon MD for [...] getting sick again Evaluated for immunodeficiency by [employer] at [facility]. On 06/09/2024. Had PFTs. FENO [...] personally reviewed by me Data Reviewed from [facility] (in addition to that noted in HPI, and Past histories above): (Data from patient's OSH mychart shown on phone) CBC: last eos 100 (05/2024) IgE: 45 (wnl) PFT: 08/01/2024 Ratio 75% (normal) FEV1 120%, FVC 125% Reported positive bronchodilator response based on FEF 25-75. RV 129% (high) TLC 133% (high) DLCOc 10 3% (normal) CT Chest: 02/13/2024 (OSH, images unavailable) - [facility] in [facility] Lung: Scattered linear densities and calcifications, chronic scarring is favored. Mild dependent atelectasis. No focal parenchymal infiltrates or significant pulmonary nodules. Pleura: No mass, effusion, pneumothorax Lizeth: Small calcified right hilar lymph nodes. Assessment and Plan: Ms. Dacosta is a 59 year old female who presents to the [facility] [place] for evaluation of bronchitis. #Recurrent bronchitis #Asthma Description of these bronchitis episodes-recurrent, only present after initial COVID infection, never associated with fever or systemic symptoms- is more consistent with exacerbation of airway inflammation/asthma. 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 (more content not included)...NormalMetroHealth [facility] W Auto Differential panel (Bld)on [id number] (Bld) [#/Vol] 0.1 10*3/uLNOMS HealthcareBasophils/100 WBC (Bld)1 %Not Estab.[facility] Healthcare Eosinophils (Bld) [#/Vol]0.1 10*3/uLNOMS HealthcareEosinophils/100 WBC (Bld)1 % Not Estab.[facility] CenterErythrocyte distribution width (RBC) [Ratio]12.9 %11.7 - 15.4 %[facility] HealthcareHematocrit (Bld) [Volume fraction]44.5 %34.0 - 46.6 %[facility] CenterHemoglobin (Bld) [Mass/Vol]14.9 g/dL11.1 - 15.9 g/dLSaint Mary's Health Center Immature granulocytes (Bld) [#/Vol]0 10*3/uLNOMS HealthcareImmature granulocytes/100 WBC (Bld)0 %Not Estab.[facility] CenterLymphocytes (Bld) [#/Vol] 2.7 10*3/uLNOMS HealthcareLymphocytes/100 WBC (Bld)28 %Not Estab.[facility] MCH (RBC) [Entitic mass]29.7 pg26.6 - 33.0 pgNOSaint Joseph Health CenterMCHC (RBC) [Mass/Vol]33.5 g/dL31.5 - 35.7 g/dLSaint Mary's Health CenterMCV (RBC) [Entitic vol]89 fL79 - 97 fLALTA VIEW HOSPITAL HealthcareMonocytes (Bld) [#/Vol]0.5 10*3/uLNOMS Healthcare Monocytes/100 WBC (Bld)5 %Not Estab.[facility] HealthcareNeutrophils (Bld) [#/Vol]6.3 10*3/uLNOMS HealthcareNeutrophils/100 WBC (Bld)65 %Not Estab.[facility] Platelets (Bld) [#/Vol]327 10*3/uLNOMS HealthcareRBC (Bld) [#/Vol]5.02 10*6/uL NOM HealthcareWBC (Bld) [#/Vol]9.8 10*3/uLNOMS HealthcareComment on above: Effective June 16, 2024 profile 200046 WBC will be made non-orderable as a stand-alone order code. Diphtheria / Tetanus Antibody Panelon 06-13-2024. diphtheriae Ab IA Qn (S)<0.10 LowNIMemphis VA Medical CenterComment on above:Interpretation: Non-Protective <0.10 Protective >=0.10 For research use only. C. tetani toxoid IgG IA Qn0.71NIMemphis VA Medical CenterComment on above: Interpretation: Non-Protective <0.10 Protective >=0.10 Results for this test are for research purposes only by the assay's fish seiner. The performance characteristics of this product have not been established. Results should not be used as a diagnostic procedure without confirmation of the diagnosis by another medically established diagnostic product or procedure. IgAon 82-88-9768HkT [Mass/Vol]346 mg/dL87 - 352 mg/dLNOLA HealthcareIgEon 48-34-7952PgE Qn45 [IU]/LNOMS HealthcareIgGon 34-85-6393CkS [Mass/Vol]915 mg/dL 586 - 1602 mg/dLNOLA HealthcareIgMon 53-32-0681YdZ [Mass/Vol]123 mg/dL26 - 217 mg/dLSaint Mary's Health CenterNo Panel Informationon [id number] and review of laboratory resultsAbCorewell Health Big Rapids HospitalPerformed at: [address] [id number] Renewals Specialist: Red Duque PhD, Phone: [phone] General Hospital Performed at: [address] [id number] Renewals Specialist: Earnest Gupta MD, Phone: [phone] AB (23 SEROTYPE)on 06-13-2024S. pneumoniae Prydeinig type 1 IgG IA (S) [Mass/Vol]<0.1Low 1.3 - PINF ug/mLNOMS HealthcareS. pneumoniae Prydeinig type 10A IgG IA (S) [Mass/Vol]<0.1Low1.3 - PINF ug/mLNOMS HealthcareS. pneumoniae Prydeinig type 11A IgG IA (S) [Mass/Vol]<0.1Low1.3 - PINF ug/mLNOMS HealthcareS. pneumoniae Prydeinig type 12F IgG IA (S) [Mass/Vol]<0.1Low1.3 - PINF ug/mLNOMS HealthcareS. pneumoniae Prydeinig type 14 IgG IA (S) [Mass/Vol]<0.1Low1.3 - PINF ug/mLNOMS HealthcareS. pneumoniae Prydeinig type 15B IgG IA (S) [Mass/Vol]<0.2Low1.3 - PINF ug/mLNOMS HealthcareS. pneumoniae Prydeinig type 17F IgG IA (S) [Mass/Vol]0.7 ug/mL Low1.3 - PINF ug/mLNOMS HealthcareS. pneumoniae Prydeinig type 18C IgG IA (S) [Mass/Vol]<0.1Low1.3 - PINF ug/mLNOMS HealthcareS. pneumoniae Prydeinig type 19A IgG IA (S) [Mass/Vol]0.5 ug/mLLow1.3 - PINF ug/mLNOMS HealthcareS. pneumoniae Prydeinig type 19F IgG IA (S) [Mass/Vol]0.3 ug/mLLow1.3 - PINF ug/mLNOMS Healthcare S. pneumoniae Prydeinig type 2 IgG IA (S) [Mass/Vol]<0.2Low1.3 - PINF ug/mLNOMS HealthcareS. pneumoniae Prydeinig type 20A IgG IA (S) [Mass/Vol]0.2 ug/mLLow1.3 - PINF ug/mLNOMS HealthcareS. pneumoniae Prydeinig type 22F IgG IA (S) [Mass/Vol]0.1 ug/mLLow1.3 - PINF ug/mLNOMS HealthcareS. pneumoniae Prydeinig type 23F IgG IA (S) [Mass/Vol]<0.1Low1.3 - PINF ug/mLNOMS HealthcareS. pneumoniae Prydeinig type 3 IgG IA (S) [Mass/Vol]<0.1Low1.3 - PINF ug/mLNOMS HealthcareS. pneumoniae Prydeinig type 33F IgG IA (S) [Mass/Vol]0.8 ug/mLLow1.3 - PINF ug/mLNOMS HealthcareComment on above:*This test was developed and its performance characteristics determined by [employer]. It has not been cleared or approved by the U.S. Food and Drug Administration. FLAG Interpretation: A = Abnormal, H = High, L = Low S. pneumoniae Prydeinig type 4 IgG IA (S) [Mass/Vol]<0.1Low1.3 - PINF ug/mLNOMS HealthcareS. pneumoniae Prydeinig type 5 IgG IA (S) [Mass/Vol]0.7 ug/mLLow1.3 - PINF ug/mLNOMS HealthcareS. pneumoniae Prydeinig type 6B IgG IA (S) [Mass/Vol]<0.1 Low1.3 - PINF ug/mLNOMS HealthcareS. pneumoniae Prydeinig type 7F IgG IA (S) [Mass/Vol]<0.1Low1.3 - PINF ug/mLNOMS HealthcareS. pneumoniae Prydeinig type 8 IgG IA (S) [Mass/Vol]10.7 ug/mL1.3 - PINF ug/mLNOMS HealthcareS. pneumoniae Prydeinig type 9N IgG IA (S) [Mass/Vol]<0.1Low1.3 - PINF ug/mLNOMS HealthcareS. pneumoniae Prydeinig type 9V IgG IA (S) [Mass/Vol]<0.1Low1.3 - PINF ug/mLNOMS Healthcare Performed at: [facility] [address] [id number] Renewals Specialist: EBER Gutierrez PhDBC, Phone: [phone] [facility] 11-74-0458TipDalnehGalion Hospital W Auto Differential panel (Bld)on 45-83-4977Fcsdfllnl (Bld) [#/Vol]0.03 10*3/[facility] Basophils/100 WBC (Bld)0.4 %0.0 - 2.0 %[facility] Eosinophils (Bld) [#/Vol]0.06 10*3/[facility] Eosinophils/100 WBC (Bld)0.9 %0.0 - 6.0 %[facility] Erythrocyte distribution width (RBC) [Ratio]13.2 %11.5 - 14.5 %[facility] HospitalHematocrit (Bld) [Volume fraction]41.6 %36.0 - 46.0 % [facility] HospitalHemoglobin (Bld) [Mass/Vol]13.8 g/dL12.0 - 16.0 g/dLUnOhioHealth Arthur G.H. Bing, MD, Cancer CenterImmature granulocytes (Bld) [#/Vol]0.07 10*3/[facility] HospitalImmature granulocytes/100 WBC (Bld)1.0 % High0.0 - 0.9 %[facility] on above:Immature Granulocyte Count (IG) includes promyelocytes, myelocytes and metamyelocytes but does not include bands. Percent differential counts (%) should be interpreted in the context of the absolute cell counts (cells/UL).Interpretation and review of laboratory resultsAbnormalUniMercy Health Willard HospitalLymphocytes (Bld) [#/Vol]2.17 10*3/[facility] HospitalLymphocytes/100 WBC (Bld) 32.1 %13.0 - 44.0 %[facility]lower HospitalH (RBC) [Entitic mass]29.6 pg26.0 - 34.0 pgUnAkron Children's HospitalHC (RBC) [Mass/Vol]33.2 g/dL 32.0 - 36.0 g/dLFlower HospitalV (RBC) [Entitic vol]89 fL80 - 100 fLUniMercy Health Willard HospitalMonocytes (Bld) [#/Vol]0.32 10*3/[facility] SystemMonocytes/100 WBC (Bld)4.7 %2.0 - 10.0 % [facility] HospitalNeutrophils (Bld) [#/Vol]4.12 10*3/[facility] on above:Percent differential counts (%) should be interpreted in the context of the absolute cell counts (cells/uL). Neutrophils/100 WBC (Bld)60.9 %40.0 - 80.0 %[facility] Nucleated RBC/100 WBC (Bld) [Ratio]0.0 %[facility] Platelets (Bld) [#/Vol]234 10*3/[facility] HospitalRBC (Bld) [#/Vol]4.66 10*6/[facility] HospitalWBC (Bld) [#/Vol]6.8 10*3/uL [facility] HospitalUnOhioHealth Arthur G.H. Bing, MD, Cancer CenterBasophils (Bld) [#/Vol]0.03 x10*3/Normal0.00-0.10[facility] Health MiamisburgComment on above:Performed By: #### 48397-4 #### MIK FREITAS ([id number]) [facility] ([facility]) [id number] [place] [address]Nivnhfjud/100 WBC (Bld)0.4 %Normal0.0-2.0[facility] MiamisburgComment on above:Performed By: #### 43678-7 #### MIK FREITAS (55381) [facility] ([facility]) [address] [place] [address]8220Wkxtfxudcya (Bld) [#/Vol]0.06 x10*3/uLNormal0.00-0.70 [facility] MiamisburgComment on above:Performed By: #### 32403-8 #### MIK FREITAS (82929) [facility] ([facility]) [id number] [place] [address]Pmolkiijzzt/100 WBC (Bld)0.9 %Normal0.0-6.0UnCleveland Clinic FoundationComment on above:Performed By: #### 58564-6 #### MIK FREITAS (09034) [facility] ([facility]) [address] [place] [address] 02298Nmaorcyhkfk distribution width (RBC) [Ratio]13.2 %Normal 11.5-14.5UnCleveland Clinic FoundationComment on above:Performed By: #### 60602-1 #### MIK FREITAS (32341) [facility] ([facility]) [id number] [place] [address] 41994Gfxgpbwcjc (Bld) [Volume fraction]41.6 %Uvqzcb12.0-46.0 [facility] MiamisburgComment on above:Performed By: #### 42301-9 #### MIK FREITAS (53088) [facility] ([facility]) [address] [place] [address] 19[address]Yiwzuemajp (Bld) [Mass/Vol]13.8 g/dBFpnrkj35.0-16.0[facility] MiamisburgComment on above:Performed By: #### 03294-4 #### MIK FREITAS (52841) [facility] ([facility]) [address] [place], [place] [address]Vigkptvz granulocytes (Bld) [#/Vol]0.07 x10*3/uLNormal 0.00-0.70[facility] MiamisburgComment on above:Performed By: #### 91887-6 #### MIK FREITAS (65518) [facility] ([facility]) [address] [place] [address]Mfjtpmbs granulocytes/100 WBC (Bld)1.0 %High0.0-0.9[facility] MiamisburgComment on above:Result Comment: Immature Granulocyte Count (IG) includes promyelocytes, myelocytes and metamyelocytes but does not include bands. Percent differential counts (%) should be interpreted in the context of the absolute cell counts (cells/UL).Performed By: #### 91985-5 #### MIK FREITAS (70082) [facility] ([facility]) [id number] [place] [address]Fjimokvebjo (Bld) [#/Vol]2.17 x10*3/uLNormal1.20-4.80 [facility] MiamisburgComment on above:Performed By: #### 73351-1 #### MIK FREITAS (23090) [facility] ([facility]) [address] [place] [address]Avvfeadlpbc/100 WBC (Bld)32.1 %Ojjbwa11.0-44.0[facility] MiamisburgComment on above:Performed By: #### 67521-9 #### MIK FREITAS (85390) [facility] ([facility]) [address] [place], [place] [address]ZLW (RBC) [Entitic mass]29.6 cmZeqphm49.0-34.0[facility] MiamisburgComment on above:Performed By: #### 70129-9 #### MIK FREITAS (38814) [facility] ([facility]) [address] [place], [place] [address]EDHY (RBC) [Mass/Vol]33.2 g/dQVvxgol96.0-36.0[facility] MiamisburgComment on above:Performed By: #### 25280-8 #### MIK FREITAS (37502) [facility] ([facility]) [address] [place], [place] [address]FDL (RBC) [Entitic vol]89 oEOriwcj24-431LbtcnhhjfgCleveland Clinic FoundationComment on above:Performed By: #### 72227-8 #### MIK FREITAS (49793) [facility] ([facility]) [address] [place] [address]Qpmbcpkww (Bld) [#/Vol]0.32 x10*3/uLNormal0.10-1.00UnCleveland Clinic FoundationComment on above:Performed By: #### 52780-3 #### MIK FREITAS (14178) [facility] ([facility]) [address] [place], [place] [address]Ckimsxohd/100 WBC (Bld)4.7 %Normal2.0-10.0[facility] MiamisburgComment on above:Performed By: #### 77075-9 #### IMK FREITAS (05315) [facility] ([facility]) [address] [place], [place] [address]Lfcujiokndq (Bld) [#/Vol]4.12 x10*3/uLNormal1.20-7.70 [facility] MiamisburgComment on above:Result Comment: Percent differential counts (%) should be interpreted in the context of the absolute cell counts (cells/uL).Performed By: #### 92537-9 #### MIK FREITAS (51908) [facility] ([facility]) [address] [place], [place] [address]Vcosmwcvqfh/100 WBC (Bld)60.9 %Wgfghf71.0-80.0[facility] MiamisburgComment on above:Performed By: #### 92008-5 #### MIK FREITAS (26635) [facility] ([facility]) [address] [place], [place] [address]Phbwknlai RBC/100 WBC (Bld) [Ratio]0.0 /100 WBCsNormal0.0-0.0 [facility] MiamisburgComment on above:Performed By: #### 78105-9 #### MIK FREITAS (01792) [facility] ([facility]) [address] [place], [place] [address]Zqjlvkhks (Bld) [#/Vol]234 x10*3/dWXkeswh782-269WszkaapvcwCleveland Clinic FoundationComment on above:Performed By: #### 29640-0 #### MIK FREITAS (77329) [facility] ([facility]) [address] [place] [address]KCA (Bld) [#/Vol]4.66 x10*6/uLNormal4.00-5.20UnCleveland Clinic FoundationComment on above:Performed By: #### 61542-8 #### MIK FREITAS (22976) [facility] ([facility]) [address] [place] [address]CAE (Bld) [#/Vol]6.8 x10*3/uLNormal4.4-11.3[facility] MiamisburgComment on above:Performed By: #### 57675-5 #### MIK FREITAS (19848) [facility] ([facility]) [address] [place] [address]KC CERVICAL SPINE WO IV CONTRASTon 60-86-6551MU CERVICAL SPINE WO IV CONTRASTInterpreted By: Willy Anderson, STUDY: CT CERVICAL SPINE WO IV CONTRAST; 08/07/2023 9:01 am INDICATION: Signs/Symptoms:Mechanical fall, no thinners, positive LOC. COMPARISON: None. ACCESSION NUMBER(S): [id number] ORDERING CLINICIAN: NEELIMA PERALTA TECHNIQUE: Axial CT [...] canal stenosis. No high-grade neural foraminal narrowing. Prevertebral/Paraspinal Soft Tissues: The prevertebral and paraspinal soft tissues are otherwise unremarkable. Lung Apices: Unremarkable. IMPRESSION: No evidence for an acute fracture or subluxation of the cervical spine. MACRO: None Signed by: Willy Anderson 08/07/2023 9:41 AM Dictation workstation: [id number] Health SystemCT Cervical spine WO contraston 68-40-7005Iu evidence for an acute fracture or subluxation of the cervical spine. MACRO: None Signed by: Willy Anderson 08/07/2023 9:41 AM Dictation workstation: [id number] By: Willy Anderson, STUDY: CT CERVICAL SPINE WO IV CONTRAST; 08/07/2023 9:01 am INDICATION: Signs/Symptoms:Mechanical fall, no thinners, positive LOC. COMPARISON: None. ACCESSION NUMBER(S): [id number] ORDERING CLINICIAN: NEELIMA PERALTA TECHNIQUE: Axial CT [...] canal stenosis. No high-grade neural foraminal narrowing. Prevertebral/Paraspinal Soft Tissues: The prevertebral and paraspinal soft tissues are otherwise unremarkable. Lung Apices: Unremarkable. Willy Kovacs MD - 08/07/2023 Interpreted By: Wlily Anderson, STUDY: CT CERVICAL SPINE WO IV CONTRAST; 08/07/2023 9:01 am INDICATION: Signs/Symptoms:Mechanical fall, no thinners, positive LOC. COMPARISON: None. ACCESSION NUMBER(S): [id number] ORDERING CLINICIAN: NEELIMA PERALTA TECHNIQUE: Axial CT [...] canal stenosis. No high-grade neural foraminal narrowing. Prevertebral/Paraspinal Soft Tissues: The prevertebral and paraspinal soft tissues are otherwise unremarkable. Lung Apices: Unremarkable. IMPRESSION: No evidence for an acute fracture or subluxation of the cervical spine. MACRO: None Signed by: Willy Anderson 08/07/2023 9:41 AM Dictation workstation: [id number] [facility] Work Phone: UnOhioHealth Arthur G.H. Bing, MD, Cancer Center Work Phone: CT HEAD WO IV CONTRASTon 20-11-7599ZB HEAD WO IV CONTRASTInterpreted By: Willy Anderson, STUDY: CT HEAD WO IV CONTRAST; 08/07/2023 9:01 am INDICATION: Signs/Symptoms:Mechanical fall, no thinners, positive LOC. COMPARISON: None. ACCESSION NUMBER(S): [id number] ORDERING CLINICIAN: NEELIMA PERALTA TECHNIQUE: Noncontrast axial [...] Willy Anderson 08/07/2023 9:38 AM Dictation workstation: [id number] Health SystemCT Head WO contraston 84-29-5700Gn acute intracranial hemorrhage, mass effect, or calvarial fracture. MACRO: None Signed by: Wilyl Anderson 08/07/2023 9:38 AM Dictation workstation: [id number] By: Willy Anderson, STUDY: CT HEAD WO IV CONTRAST; 08/07/2023 9:01 am INDICATION: Signs/Symptoms:Mechanical fall, no thinners, positive LOC. COMPARISON: None. ACCESSION NUMBER(S): [id number] ORDERING CLINICIAN: NEELIMA PERALTA TECHNIQUE: Noncontrast axial [...] Mastoids: Clear. Orbits: Normal. Soft tissues: Unremarkable. MMWilly Cyr MD - 08/07/2023 Interpreted By: Willy Anderson, STUDY: CT HEAD WO IV CONTRAST; 08/07/2023 9:01 am INDICATION: Signs/Symptoms:Mechanical fall, no thinners, positive LOC. COMPARISON: None. ACCESSION NUMBER(S): [id number] ORDERING CLINICIAN: NEELIMA PERALTA TECHNIQUE: Noncontrast axial [...] Willy Anderson 08/07/2023 9:38 AM Dictation workstation: [id number] [facility] Work Phone: CT Head WO contrastOrdered By: Willy Anderson on 02-45-1050SzzsczwkclOhioHealth Grady Memorial Hospital Work Phone: ct THORACIC SPINE WO IV CONTRASTon [id number] THORACIC SPINE WO IV CONTRASTInterpreted By: Willy Anderson, STUDY: CT THORACIC SPINE WO IV CONTRAST; 08/07/2023 9:01 am INDICATION: Signs/Symptoms:Mechanical fall, no thinners, positive LOC, thoracic spinal tenderness. COMPARISON: None. ACCESSION NUMBER(S): [id number] ORDERING CLINICIAN: NEELIMA PERALTA TECHNIQUE: Axial CT [...] Willy Anderson 08/07/2023 9:48 AM Dictation workstation: [id number] Health SystemCT Thoracic spine WO contraston 39-18-5911Ed acute osseous abnormality of the thoracic spine. Mild chronic appearing anterior wedging of a few scattered thoracic vertebral bodies as above. MACRO: None Signed by: Willy Anderson 08/07/2023 9:48 AM Dictation workstation: [id number] By: Willy Anderson, STUDY: CT THORACIC SPINE WO IV CONTRAST; 08/07/2023 9:01 am INDICATION: Signs/Symptoms:Mechanical fall, no thinners, positive LOC, thoracic spinal tenderness. COMPARISON: None. ACCESSION NUMBER(S): [id number] ORDERING CLINICIAN: NEELIMA PERALTA TECHNIQUE: Axial CT [...] dependent atelectasis within the visualized lung bases. MMODALWilly Anderson MD - 08/07/2023 Interpreted By: Willy Anderson, STUDY: CT THORACIC SPINE WO IV CONTRAST; 08/07/2023 9:01 am INDICATION: Signs/Symptoms:Mechanical fall, no thinners, positive LOC, thoracic spinal tenderness. COMPARISON: None. ACCESSION NUMBER(S): [id number] ORDERING CLINICIAN: NEELIMA PERALTA TECHNIQUE: Axial CT [...] Willy Anderson 08/07/2023 9:48 AM Dictation workstation: [id number] [facility] Work Phone: UnOhio[facility] Work Phone: Coagulation tissue factor inducedon 85-30-4505NX Coag (PPP) [Time]11.1 sNormal9.8-12.8UnCleveland Clinic Foundation Comment on above:Performed By: #### 5902-2 #### MIK FREITAS ([id number]) [facility] ([facility]) [address] [place], [place] [address]Comprehensive metabolic 2000 panelon 12-76-2993Nderyvb BCP dye [Mass/Vol]4.7 g/dL3.4 - 5.0 g/dLUnOhioHealth Arthur G.H. Bing, MD, Cancer CenterALP [Catalytic activity/Vol]61 U/L33 - 110 U/CentervilleALT With P-5'-P [Catalytic activity/Vol]27 U/L7 - 45 U/CentervilleComment on above:Patients treated with Sulfasalazine may generate falsely decreased results for ALT.Anion gap [Moles/Vol]11 mmol/L10 - 20 mmol/CentervilleAST With P-5'-P [Catalytic activity/Vol]23 U/L9 - 39 U/CentervilleBilirubin [Mass/Vol]0.5 mg/dL0.0 - 1.2 mg/dLUnOhioHealth Arthur G.[facility]. [facility], [facility], Cancer CenterCalcium [Mass/Vol]9.4 mg/dL8.6 - 10.3 mg/dLUnOhioHealth Arthur G.[facility], [facility], Cancer CenterChloride [Moles/Vol]101 mmol/L98 - 107 mmol/CentervilleCO2 [Moles/Vol]28 mmol/L21 - 32 mmol/CentervilleCreatinine [Mass/Vol]0.75 mg/dL0.50 - 1.05 mg/dLUnOhioHealth Arthur G.[facility]. [facility], [facility], Cancer CentereGFR- PINFUniMercy Health Willard HospitalComment on above:Calculations of estimated GFR are performed using the 2020 CKD-EPI Study Refit equation without therace variable for the IDMS-Traceable creatinine methods. https://jasn.asnjournals.org/content/early/ASN.5213652011 Glucose [Mass/Vol]108 mg/wVQmsp17 - 99 mg/dLUnOhioHealth [facility] Interpretation and review of laboratory resultsAbnormalUniMercy Health Willard HospitalPotassium [Moles/Vol]3.8 mmol/L3.5 - 5.3 mmol/CentervilleProtein [Mass/Vol]7.8 g/dL6.4 - 8.2 g/dLUnOhioHealth Arthur [facility]. [facility], MD, Cancer CenterSodium [Moles/Vol]136 mmol/L136 - 145 mmol/CentervilleUrea nitrogen [Mass/Vol]13 mg/dL6 - 23 mg/dLUnOhioHealth Arthur [facility], Cancer CenterUnOhioHealth [facility], Cancer CenterAlbumin BCP dye [Mass/Vol]4.7 g/dL Normal3.4-5.0UnCleveland Clinic FoundationComment on above: Performed By: #### 05665-8 #### MIK FREITAS (25500) [facility] ([facility]) [address] [place], [place] [address]ZIX [Catalytic activity/Vol]61 U/JDuaezl96-082MpxtedipioCleveland Clinic FoundationComment on above:Performed By: #### 20903-2 #### MIK FREITAS ([id number]) [facility] ([facility]) [address] [place], [place] [address]XYR With P-5'-P [Catalytic activity/Vol]27 U/LNormal7-45 [facility] Health MiamisburgComment on above:Result Comment: Patients treated with Sulfasalazine may generate falsely decreased results for ALT.Performed By: #### 37808-9 #### MIK FREITAS (27363) [facility] ([facility]) [address] [place], [place] [address]Agfps gap [Moles/Vol]11 mmol/XOkinhp64-25YkgnwwnvzfKettering Health MiamisburgComment on above:Performed By: #### 87253-9 #### MIK FREITAS (54898) [facility] ([facility]) [address] [facility], [place] [address]UBO With P-5'-P [Catalytic activity/Vol]23 U/LNormal9-39 [facility] MiamisburgComment on above:Performed By: #### 48533-4 #### MIK FREITAS (53680) [facility] ([facility]) [address] [facility] [place], [place] [address]Asrwhjvzz [Mass/Vol]0.5 mg/dLNormal0.0-1.2[facility] Health MiamisburgComment on above:Performed By: #### 48019-1 #### MIK FREITAS (97581) [facility] ([facility]) [address] [facility] [place], [place] [address]Bexlvzy [Mass/Vol]9.4 mg/dLNormal8.6-10.3[facility] Health MiamisburgComment on above:Performed By: #### 88062-3 #### MIK FREITAS ([id number]) [facility] ([facility]) [address] [facility], [place] [address]Wlqpyadw [Moles/Vol]101 mmol/AEopxau57-038LjwnziifnlKettering Health MiamisburgComment on above:Performed By: #### 62160-9 #### MIK FREITAS (65855) [facility] ([facility]) [address] [place], [place] [address]PW6 [Moles/Vol]28 mmol/WHlkbxz12-08NkvhtpfpnnKettering Health MiamisburgComment on above:Performed By: #### 55632-9 #### MIK FREITAS (77393) [facility] ([facility]) [address] [place], [place] [address]Rpnqdodenb [Mass/Vol]0.75 mg/dLNormal0.50-1.05[facility] Health MiamisburgComment on above:Performed By: #### 03837-7 #### MIK FREITAS (22035) [facility] ([facility]) [address] [place], [place] [address]LTW/1.73 sq M.predicted MDRD (S/P/Bld) [Vol rate/Area] mL/min/{1.73_m2}Normal>60UnCleveland Clinic FoundationComment on above:Result Comment: Calculations of estimated GFR are performed using the 2020 CKD-EPI Study Refit equation without the race variable for the IDMS-Traceable creatinine methods. https://jasn.asnjournals.org/content/early//ASN.7627637104Chkertipf By: #### 16231-2 #### MIK FREITAS (97687) [facility] ([facility]) [address] [place], [place] [address]Vmmbnya [Mass/Vol]108 mg/uWNhgp84-03HxggnavgdmCleveland Clinic FoundationComment on above:Performed By: #### 84319-1 #### MIK FREITAS (84332) [facility] ([facility]) [address] [place], [place] [address]Ojfpzipjr [Moles/Vol]3.8 mmol/LNormal3.5-5.3[facility] MiamisburgComment on above:Performed By: #### 57344-0 #### MIK FREITAS (25959) [facility] ([facility]) [address] [place], [place] [address]Hfqjygr [Mass/Vol]7.8 g/dLNormal6.4-8.2[facility] MiamisburgComment on above:Performed By: #### 48901-7 ###Noel FREITAS (57120) [facility] ([facility]) [address] [place], [place] [address]Gkgodd [Moles/Vol]136 mmol/RQbkamw477-697KxanaikxxbKettering Health MiamisburgComment on above:Performed By: #### 67490-5 #### MIK FREITAS (89780) [facility] ([facility]) [address] [place], [place] [address]Wqqd nitrogen [Mass/Vol]13 mg/dLNormal6-23UnCleveland Clinic FoundationComment on above:Performed By: #### 21179-7 #### MIK FREITAS (53972) [facility] ([facility]) [address] [place], [place] [address]GVM 12-LEADon 40-40-0847FPW 12-LEADVentricular Rate 73 Atrial Rate 73 P-R Interval 168 QRS Duration 70 Q-T Interval 392 QTC Calculation(Bazett) 431 P [place] 32 R [place] 43 T [place] 24 QRS Count 12 Q Onset 225 P Onset 141 P Offset 194 T Offset 421 QTC Fredericia 418 Diagnosis Normal sinus rhythm Septal infarct , age undetermined Abnormal ECG No previous ECGs available Confirmed by Josie Anthony ([id number]) on 08/29/2023 9:59:19 PMNormalHudson County Meadowview HospitalNo Panel Informationon 71-62-8757Xfstjarpm Study observation (narrative)[facility] Work Phone: pt Coag (PPP) [Time]on 77-55-1175PIZ Coag (PPP) [Relative time]1.0 {INR}0.9 - 1.1[facility] HospitalInterpretation and review of laboratory resultsNormalUniversHillcrest Hospital SouthINR Coag (PPP) [Relative time]1.4Ufbgok8.9-1.1 [facility] MiamisburgComment on above:Performed By: #### 5902-2 #### MIK FREITAS (15363) [facility] ([facility]) [address] [place], [place] [address]Bendlmt-GQAec 55-70-3098CS Coag (PPP) [Time]11.1 [facility] Health TroyCB AUTO DIFFon 74-01-4064PMLJ #0.0 103/ulNormal0.0-0.1The [facility], IncComment on above:Performed By: #### CBC #### [facility] [address] [address] [address] Enrique ParkinsonBasophils/100 WBC (Bld)0.6 %Normal0.2-2.0The [facility] Comment on above:Performed By: #### CBC #### [facility] [address] [address] [address] Enrique Shafer #0.1 103/ulNormal0.0-0.7The [facility], IncComment on above: Performed By: #### CBC #### [facility] [address] [place] [address] Dr. Enrique Chaseosinophils/100 WBC (Bld)0.9 %Normal0.9-7.0The [facility] Comment on above:Performed By: #### CBC #### [facility] [address] [address] [address] Enrique Chaserythrocyte distribution width (RBC) [Ratio]12.9 %Tsuyvg25.0-15.0 The [facility], IncComment on above:Performed By: #### CBC #### [facility] [address] [address] [address] Enrique ParkinsonHematocrit (Bld) [Volume fraction]41.5 %Rjgtke71.0-48.0The [facility], IncComment on above:Performed By: #### CBC #### [facility] [address] [address] [address] Enrique ParkinsonHemoglobin (Bld) [Mass/Vol]14.3 g/kAQfxnxg19.0-16.0The [facility], IncComment on above:Performed By: #### CBC #### [facility] [address] [place] [address] Dr. Enrique Tobar #0.02 10e3/ulNormal0.00-0.03The [facility] Memorial Hospitalment on above:Performed By: #### CBC #### [facility] [address] [address] [address] Enrique Tobar %0.3 %Normal0.0-0.5The [facility] on above: Performed By: #### CBC #### [facility] [address] [address] [address] Enrique Archuleta #1.8 103/ulNormal1.2-3.8The [facility], IncCombeaumont hospital on above:Performed By: #### CBC #### [facility] [address] [place] [address] Dr. Enrique Grayhocytes/100 WBC (Bld)25.9 %Flsrmp55.5-60.0[facility] AndersonCombeaumont hospital on above:Performed By: #### CBC #### [facility] [address] [place] [address] Dr. Enrique Acevedo DIFF REQNONormalThe [facility], IncComment on above: Performed By: #### CBC #### [facility] [address] [place] [address] Dr. Enrique Coppola (RBC) [Entitic mass]30.2 eeMndsxq54.7-34.0The [facility] on above:Performed By: #### CBC #### [facility] [address] [place] [address] Dr. Enrique Darnell (RBC) [Mass/Vol]34.5 g/zNMostmb42.9-35.2The [facility] Hospitalment on above:Performed By: #### CBC #### [facility] [address] [place] [address] Dr. Enrique Darnell (RBC) [Entitic vol]87.6 uNGhvmuy06.0-99.0The [facility] on above:Performed By: #### CBC #### [facility] [address] [place] [address] Dr. Enrique Dolan #0.4 103/ulNormal0.3-0.8The [facility], IncComment on above:Performed By: #### CBC #### [facility] [address] [place] [address] Dr. Enrique Goodsonocytes/100 WBC (Bld)5.1 %Normal1.7-12.0The [facility] Comment on above:Performed By: #### CBC #### [facility] [address] [place] [address] Dr. Enrique James #4.6 103/ulNormal1.4-6.5The [facility], IncComment on above:Performed By: #### CBC #### [facility] [address] [place] [address] Dr. Enrique Oroutrophils/100 WBC (Bld)67.2 %Qlrbsv84.0-75.0The [facility], IncComment on above:Performed By: #### CBC #### [facility] [address] [place] [address] Dr. Enrique Aguilalet mean volume (Bld) [Entitic vol]9.2 fLCritically low 9.5-13.5The [facility], IncComment on above:Performed By: #### CBC #### [facility] [address] [place] [address] Dr. Enrique ParkinsonPLT246 103/xpSxxdda070-084Pzp [facility], IncComment on above: Performed By: #### CBC #### [facility] [address] [place] [address] Dr. Enrique ParkinsonRBC4.74 106/ulNormal4.20-5.40The [facility], IncComment on above:Performed By: #### CBC #### [facility] [address] [place] [address] Dr. Enrique ParkinsonWBC6.9 103/ulNormal4.0-11.0The [facility], IncComment on above: Performed By: #### CBC #### [facility] [address] [place] [address] Dr. Enrique Currie T3on 60-37-0093WYLV T32.43 pg/mlLNormal2.18-3.98The [facility] on above:Performed By: #### T4, TSH, LIPID, CMP, FT3 #### [facility] [address] [place] [address] Dr. Enrique ParkinsonGLYCOHEMOGLOBIN A1Con 22-69-3999REG RECOMMENDATIONSEE BELOWAdena Regional Medical CenterCombeaumont hospital on above:Result Comment: ADA RECOMMENDED LIMIT 4.0 - 6.0 ADA THERAPEUTIC TARGET < 7.0 ACTION SUGGESTED > 7.0Performed By: #### A1C #### [facility] [address] [place] [address] Dr. Enrique ParkinsonGlucose [Mass/Vol]114 mg/dLKettering Health Main CampusCombeaumont hospital on above:Performed By: #### A1C #### [facility] [address] [place] [address] Dr. Enrique ParkinsonHbA1c (Bld) [Mass fraction]5.6 %Normal4.5-6.2The [facility] on above:Performed By: #### A1C #### [facility] [address] [place] [address] Dr. Enrique ParkinsonLIPID PROFILEon 06-33-4073PGJC-HDL RATIO NORMSEE St. Charles HospitalCombeaumont hospital on above:Result Comment: 3.3 - 4.4 LOW RISK 4.4 - 7.1 AVERAGE RISK 7.1 - 11.0 MODERATE RISK >11.0 HIGH RISKPerformed By: #### T4, TSH, LIPID, CMP, FT3 #### [facility] [address] [place] [address] Dr. Enrique ParkinsonCholesterol [Mass/Vol]241 mg/dLCritically high<=200The [facility] on above:Performed By: #### T4, TSH, LIPID, CMP, FT3 #### [facility] [address] [place] [address] Dr. Enrique ParkinsonCholesterol in HDL [Mass/Vol]45 mg/nJRzdtjn25-97Hem [facility] on above:Performed By: #### T4, TSH, LIPID, CMP, FT3 #### [facility] [address] [address] [address] Enrique ParkinsonCholesterol in LDL [Mass/Vol]131.2 mg/dLNationwide Children's Hospital on above:Performed By: #### T4, TSH, LIPID, CMP, FT3 #### [facility] [address] [address] [address] Enrique Garcia.total/Cholesterol in HDL [Mass ratio]5.4 {ratio} NormalThe [facility] on above:Performed By: #### T4, TSH, LIPID, CMP, FT3 #### [facility] [address] [place] [address] Dr. Enrique Krueger NORMAL> or = 60 mg/dl - LOW CARDIOVASCULAR RISK <40 mg/dl - HIGH CARDIOVASCULAR RISKNationwide Children's Hospital on above:Performed By: #### T4, TSH, LIPID, CMP, FT3 #### [facility] [address] [address] [address] Enrique Cespedes CALC NORMALSEE BELOWKettering Health Main CampusCombeaumont hospital on above:Result Comment: <100 mg/dl OPTIMAL 100 - 129 mg/dl NEAR OR ABOVE OPTIMAL 130 - 159 mg/dl BORDERLINE HIGH 160 - 189 mg/dl HIGH >190 mg/dl VERY HIGH Performed By: #### T4, TSH, LIPID, CMP, FT3 #### [facility] [address] [address] [address] Enrique ParkinsonTriglyceride [Mass/Vol]324 mg/dLCritically high<=150[facility] on above:Performed By: #### T4, TSH, LIPID, CMP, FT3 #### [facility] [address] [place] [address] Dr. Enrique ParkinsonVLDL CALC64.8 mg/dLNationwide Children's Hospital on above: Performed By: #### T4, TSH, LIPID, CMP, FT3 #### [facility] [address] [place] [address] Dr. Enrique ParkinsonPROBon 14(COMP METB)on 35-49-3011Jrgsvvp [Mass/Vol]4.1 g/dLNormal 3.4-5.0The [facility], IncComment on above:Performed By: #### T4, TSH, LIPID, CMP, FT3 #### [facility] [address] [place] [address] Dr. Enrique ParkinsonAlbumin/Globulin [Mass ratio]1.1 {ratio}NormalThe [facility], IncComment on above:Performed By: #### T4, TSH, LIPID, CMP, FT3 #### [facility] [address] [place] [address] Dr. Enrique Ash [Catalytic activity/Vol]83 U/HNzxxgu65-443Hxu [facility], IncCombeaumont hospital on above:Performed By: #### T4, TSH, LIPID, CMP, FT3 #### [facility] [address] [place] [address] Dr. Enrique Angela [Catalytic activity/Vol]28 U/WZahaps03-88Son [facility], IncComment on above:Performed By: #### T4, TSH, LIPID, CMP, FT3 #### [facility] [address] [place] [address] Dr. Enrique Lopes gap [Moles/Vol]12.3 mmol/LNormalThe [facility] Comment on above:Performed By: #### T4, TSH, LIPID, CMP, FT3 #### [facility] [address] [place] [address] Dr. Enrique Coon [Catalytic activity/Vol]20 U/UOzkmrs91-06Bcr [facility] on above:Performed By: #### T4, TSH, LIPID, CMP, FT3 #### [facility] [address] [place] [address] Dr. Enrique ParkinsonBilirubin [Mass/Vol]0.4 mg/dLNormal0.2-1.0The [facility] Comment on above:Performed By: #### T4, TSH, LIPID, CMP, FT3 #### [facility] [address] [place] [address] Dr. Enrique ParkinsonCalcium [Mass/Vol]9.2 mg/dLNormal8.5-10.1The [facility] Comment on above:Performed By: #### T4, TSH, LIPID, CMP, FT3 #### [facility] [address] [address] [address] Enrique ParkinsonChloride [Moles/Vol]101 mmol/MNkkhqv40-599Mov [facility] Comment on above:Performed By: #### T4, TSH, LIPID, CMP, FT3 #### [facility] [address] [address] [address] Enrique ParkinsonCO2 [Moles/Vol]29.4 mmol/OQltjnn60.0-32.0The [facility] Comment on above:Performed By: #### T4, TSH, LIPID, CMP, FT3 #### [facility] [address] [place] [address] Dr. Enrique ParkinsonCreatinine [Mass/Vol]0.80 mg/dLNormal0.55-1.02The [facility], IncComment on above:Performed By: #### T4, TSH, LIPID, CMP, FT3 #### [facility] [address] [place] [address] Dr. Enrique ChaseGFR-AF MONEGASQUE>60Normal>=60The [facility], IncComment on above:Performed By: #### T4, TSH, LIPID, CMP, FT3 #### [facility] [address] [place] [address] Dr. Enrique ChaseGFR-NON AF MONEGASQUE>60Normal>=60The [facility], IncComment on above:Performed By: #### T4, TSH, LIPID, CMP, FT3 #### [facility] [address] [place] [address] Dr. Enrique ParkinsonGlobulin (S) [Mass/Vol]3.8 g/dLNormalThe [facility], IncComment on above:Performed By: #### T4, TSH, LIPID, CMP, FT3 #### [facility] [address] [place] [address] Dr. Enrique ParkinsonGlucose [Mass/Vol]111 mg/dLCritically hujh30-778Nzq [facility], IncComment on above:Performed By: #### T4, TSH, LIPID, CMP, FT3 #### [facility] [address] [place] [address] Dr. Enrique ParkinsonPotassium [Moles/Vol]3.7 mmol/LNormal3.5-5.1The [facility] Comment on above:Performed By: #### T4, TSH, LIPID, CMP, FT3 #### [facility] [address] [place] [address] Dr. Enrique ParkinsonProtein [Mass/Vol]7.9 g/dLNormal6.4-8.2The [facility] Comment on above:Performed By: #### T4, TSH, LIPID, CMP, FT3 #### [facility] [address] [place] [address] Dr. Enrique ParkinsonSodium [Moles/Vol]139 mmol/HLibmkw079-991Vbf [facility] Comment on above:Performed By: #### T4, TSH, LIPID, CMP, FT3 #### [facility] [address] [place] [address] Dr. Enrique ParkinsonUrea nitrogen [Mass/Vol]15.0 mg/dLNormal7.0-18.0The [facility] [facility], IncComment on above:Performed By: #### T4, TSH, LIPID, CMP, FT3 #### [facility] [address] [place] [address] Dr. Enrique ParkinsonUrea nitrogen/Creatinine [Mass ratio]18.8 mg/mgNormalThe [facility], IncComment on above:Performed By: #### T4, TSH, LIPID, CMP, FT3 #### [facility] [address] [place] [address] Dr. Enrique Zamora 34-77-7234D1 [Mass/Vol]10.30 ug/dLNormal4.80-13.90The [facility], IncComment on above:Performed By: #### T4, TSH, LIPID, CMP, FT3 #### [facility] [address] [place] [address] Dr. Enrique Aleman 42-29-3149TKC3.847 uIU/mLNormal0.358-3.740[facility] - AndersonComment on above:Performed By: #### T4, TSH, LIPID, CMP, FT3 #### [facility] [address] [place] [address] Dr. Enrique ParkinsonVITAMIN D 25 OHon 79-15-4892JNC D 25-OH35.8 ng/mLNormalOur Lady Of Mercy Hospital - AndersonComment on above:Performed By: #### VITAD #### [facility] [address] [place] [address] Dr. Enrique Navarro D RANGESSEE BELOWNoWooster Community HospitalComment on above: Result Comment: <20 ng/mL Vit D deficient 20 - <30 ng/mL Vit D insufficient 30 - 100 ng/mL Vit D sufficient >100 ng/mL Potential ToxicityPerformed By: #### VITAD #### [facility] [address] [place] [address] Dr. Enrique ParkinsonCovid-19 PCR (CVDTBH)on 00-62-9412PUKV-CoV-2 (COVID-19) RNA RENATO+probe Ql (Unsp spec)Not detectedNormalNOT DETECTEDOur Lady Of Mercy Hospital [facility] Comment on above:Result Comment: This test is not yet approved or cleared by the [place] FDA. When there are no FDA-approved or cleared tests available, and other criteria are met, FDA can make tests available under an emergency access mechanism called an Emergency Use Authorization (EUA). The EUA for this test is supported by the [place] of Health and Human Service's (HHS's) declaration that circumstances exist to justify the emergency use of in vitro diagnostics for the detection and/or diagnosis of the virus that causes COVID- 19. This EUA will remain in effect (meaning [...] of clinical signs and symptoms consistent with SARS-CoV-2.Performed By: #### CVDTBH #### [facility] [address] [place] [address] Dr. Enrique AlbertoMATIC COVID-19 ANTIGENon 05-50-1604HDG StatementSEE BELOW NormalSumma Health on above:Result Comment: This test has not been FDA [...] declaration is terminated or authorization is revoked sooner.Performed By: #### CVDAGS #### [facility] [address] [place] [address] Dr. Enrique Gomez-CoV-2 (COVID-19) RNA RENATO+probe Ql (Unsp spec)NegativeNormal NEGATIVEThe [facility], IncComment on above:Performed By: #### CVDAGS #### [facility] [address] [place] [address] Dr. Enrique Cardona ACOG PANEL 2: 30 to 65on 11-19-2021..NormalThe [facility], IncComment on above:Result Comment: Performed at: WBPerformed By: #### CVDAGS #### [facility] [address] [place] [address] Dr. Enrique Salazar Gdln ACOG Uienemo96-20UolthbYwaWooster Community HospitalComment on above:Performed By: #### CVDAGS #### [facility] [address] [place] [address] Dr. Enrique ParkinsonDIAGNOSIS:CommentNormAccess Hospital DaytonComment on above: Result Comment: NEGATIVE FOR INTRAEPITHELIAL LESION OR MALIGNANCY. Performed at: WBPerformed By: #### CVDAGS #### [facility] [address] [place] [address] Dr. Enrique ParkinsonHPV AptimaNegativeNormalNegativeThe [facility] on above:Result Comment: This nucleic acid amplification test detects fourteen high-risk HPV types (16,18,31,33,35,39,45,51,52,56,58,59,66,68) without differentiation. Performed at: =GPerformed By: #### CVDAGS #### [facility] [address] [place] [address] Dr. Enrique ParkinsonMethodology:CommentNationwide Children's Hospital on above: Result Comment: This liquid based ThinPrep(R) pap test was screened with the use of an image guided system. Performed at: WBPerformed By: #### CVDAGS #### [place] [address] Dr[address] Enrique ParkinsonNote:CommentNationwide Children's Hospital on above:Result Comment: The Pap smear is a screening test designed to aid in the detection of premalignant and malignant conditions of the uterine cervix. It is not a diagnostic procedure and should not be used as the sole means of detecting cervical cancer. Both false-positive and false-negative reports do occur. . Performed at: WBPerformed By: #### CVDAGS #### [facility] [address] [place] [address] Dr. Enrique ParkinsonPerformed by:CommentNationwide Children's Hospital on above: Result Comment: Katarina Robbins, Satellite Installer (ASCP) Performed at: WBPerformed By: #### CVDAGS #### [facility] [address] [place] [address] Dr. Enrique ParkinsonSpecimen adequacy:CommentNationwide Children's Hospital on above:Result Comment: Satisfactory for evaluation. Endocervical and/or squamous metaplastic cells (endocervical component) are present. Performed at: WBPerformed By: #### CVDAGS #### [facility] [address] [place] [address] Dr. Enrique Parkinson Vital Signs Date TimeVital SignValuePerforming WibxgqacxRtbmohou18-07-7266 10:210400Body qepmpr642.64 cmRakesh Vernon MD Work Phone: [phone] [place], [place] 7201608-06-2025 10:21-0400 Body mass index (BMI) [Ratio]29.2 kg/c1KvdelnyRakesh Vernon MD Work Phone: [phone] [place], [place] 7201608-06-2025 10:21040 Body iagckk79.21 kgRakesh Vernon MD Work Phone: [phone] [place], [place] 7201608-06-2025 10:21-0400 Diastolic blood cjqgeapg74 mm[Hg]Rakesh Vernon MD Work Phone: [phone] [place], [place] 7201608-06-2025 10:21-0400 Heart rate78 /minDbebe Vernon MD Work Phone: [phone]08-06-2025 10:21040 SaO2% (BldA) [Mass fraction]99 %Rakesh Vernon MD Work Phone: [phone] [place], [place] 7201608-06-2025 10:21-0400 Systolic blood fkuthrdp631 mm[Hg]Rakesh Vernon MD Work Phone: [phone] [place], [place] 7201603-18-2025 11:30-0400 Diastolic blood sdcetrmt73 mm[Hg]Jono Gonzalez III, MD Work Phone: [facility]03-18-2025 11:30-0400Heart rate61 /min Jono Gonzalez III, MD Work Phone: [facility]03-18-2025 11:30-4330HbR4% (BldA) [Mass fraction]100 %Jono Gonzalez III, MD Work Phone: [facility]03-18-2025 11:30-0400Systolic blood frsnlxyd902 mm[Hg]Jono Gonzalez III, MD Work Phone: [facility]03-18-2025 11:16-0400Respiratory rate 16 /minJono Gonzalez III, MD Work Phone: [facility]03-18-2025 09:53-0400Body temperature 97.3 [degF]Jono Gonzalez III, MD Work Phone: [facility]03-04-2025 06:52-0500Body ofzjyh596.1 cmPacc 1 Work Phone: [facility]03-04-2025 06:52-0500Body mass index (BMI) [Ratio]28.25 kg/m2Pacc 1 Work Phone: [facility]03-04-2025 06:52-0500Body temperature 98.1 [degF]Pacc 1 Work Phone: [facility]03-04-2025 06:52-0500Body kg Pacc 1 Work Phone: [facility]03-04-2025 06:52-0500Diastolic blood jpzlzguz72 mm[Hg]Pacc 1 Work Phone: [facility]03-04-2025 06:52-0500Heart rate55 /min Pacc 1 Work Phone: [facility]03-04-2025 06:52-0500Respiratory rate 14 /minPacc 1 Work Phone: [facility]03-04-2025 06:52-2224AaE3% (BldA) [Mass fraction]100 %Pacc 1 Work Phone: [facility]03-04-2025 06:52-0500Systolic blood pdifucxa365 mm[Hg]Pacc 1 Work Phone: [facility]02-28-2025 09:54-0500Body ccwzgu213.6 cmJosen Gonzalez III, MD Work Phone: [facility] HospitalComment on above:-97-2037 09:54-0500Body mass index (BMI) [Ratio]27.79 kg/m2Jono Gonzalez III, MD Work Phone: [facility]02-28-2025 09:54-0500Body mykagz14.1 kgJosen Gonzalez III, MD Work Phone: [facility]02-28-2025 09:54-0500Diastolic blood gmpquodv21 mm[Hg]Jono Gonzalez III, MD Work Phone: [facility]02-28-2025 09:54-0500Heart rate75 /min Jono Gonzalez III, MD Work Phone: [facility]02-28-2025 09:54-9956SjP1% (BldA) [Mass fraction]99 %Jono Gonzalez III, MD Work Phone: [facility]02-28-2025 09:54-0500Systolic blood clfhxoue450 mm[Hg]Jono Gonzalez III, MD Work Phone: [facility]01-28-2025 13:18-0500Body takckd83.2 kgSujosef Pelayo MD Work Phone: [facility]01-28-2025 13:18-0500Diastolic blood nnrnwnni85 mm[Hg]Elgin Pelayo MD Work Phone: [facility]01-28-2025 13:18-0500Heart rate83 /min Elgin Pelayo MD Work Phone: [facility]01-28-2025 13:18-1181RiN2% (BldA) [Mass fraction]100 %Elgin Pelayo MD Work Phone: [facility]01-28-2025 13:18-0500Systolic blood lbxqaefb309 mm[Hg]Elgin Pelayo MD Work Phone: [facility]11-25-2024 14:23-0500Body ktjadl557.6 cmTlai Briscoe MD Work Phone: noSaint Joseph Health CenterViwhvumgku83-44-3064 14:23-0500Body mass index (BMI) [Ratio]25.82 kg/m2Breann Briscoe MD Work Phone: noms Lnsyoanrun63-72-2854 14:23-0500Body .58 kgBreann Briscoe MD Work Phone: noSaint Joseph Health CenterCvgrqofizo18-47-5409 09:35-0400Diastolic blood rhurykza07 mm[Hg]Dave Penny DO Work Phone: noSaint Joseph Health CenterTqbxowihon01-10-3416 09:35-0400Heart rate78 /min Dave Penny DO Work Phone: noSaint Joseph Health CenterBjdpoozxbx12-16-3046 09:35-1554RhS7% (BldA) [Mass fraction]99 %Dave Penny DO Work Phone: noSaint Joseph Health CenterRtrdtovetz54-13-0863 09:35-0400Systolic blood knftyvyd653 mm[Hg]Dave Penny DO Work Phone: [facility] CenterWjolpfkdqx32-76-7063 10:27-0500Diastolic blood afmpehzr87 mm[Hg]Aruba Dennison DO Work Phone: [phone] [place], [place] 6775701-23-2024 10:27-0500 Heart rate77 /minAruba Dennison DO Work Phone: [phone] [place], [place] 6775701-23-2024 10:27-0500 SaO2% (BldA) [Mass fraction]98 %Aruba Dennison DO Work Phone: [phone]01-23-2024 10:27-0500 Systolic blood mm[Hg]Aruba Dennison DO Work Phone: [phone]01-23-2024 08:01-0500 Body vogkdy464.6 cmAruba Dennison DO Work Phone: [phone]01-23-2024 08:01-0500 Body mass index (BMI) [Ratio]29.05 kg/h7Yfdlj Dennison DO Work Phone: [phone] [place], [place] 6775701-23-2024 08:01-0500 Body fwwnfginxvo52.1 [degF]Aruba Dennison DO Work Phone: [phone] [place], [place] 6775701-23-2024 08:01-0500 Body .65 kgAruba Dennison DO Work Phone: [facility]01-23-2024 08:01-0500 Respiratory rate16 /minAruba Dennison DO Work Phone: [facility]06-01-2023 14:45-0400 Body zingfl185.64 cmLkendy Chacko Other [employer] Other 06-01-2023 14:45-0400Body mass index (BMI) [Ratio] 30.18 kg/v2Woxpzv Ginna Other [employer] Other 06-01-2023 14:45-0400Body cwxzxrvtryw90.8 [degF]Mirta Ginna Other [employer] Other 06-01-2023 14:45-0400Body zoeqal50.82 kgMirta Chacko Other [employer] Other 06-01-2023 14:45-0400Respiratory rate18 /minMirta Chacko Other [employer] Other 06-01-2023 14:45-4777XgE4% (BldA) [Mass fraction]98 % Mirta Salazarley Other [employer] Other Encounters Encounter DateEncounter TypeCare ProviderFacilityStart: 02-18-2025 End: 91-18-1033hitgtpsnamPyytvln M Hoy MD Work Phone: [facility] Work Phone: Start: 02-18-2025 End: 09-81-8273Yjhkeki encounter procedureNeelima Rangel RECONCILEMENT CLERK-[facility] Work Phone: Start: 10-16-2024 End: 54-62-8968jgfolfphqbYFHJ A COSTIN IIIFacility:[facility] Start: 10-16-2024 End: 25-58-9183Lmmqvcj encounter procedureJono Gonzalez MD Work Phone: General SurgeryComment on above:Post-operative state (Primary Dx)Start: 10-02-2024 End: 55-12-0085Addcawyvt encounterLoree Mona CARDENAS Work Phone: General SurgeryStart: 31-49-0852ysntbevxpuGBRG A COSTIN IIIFacility:[facility] Hospitaltart: 09-30-2024 End: 51-76-8086Lbxwbrbrek hospital visit by Eric Gonzalez MD Work Phone: Ambulatory SurgeryComment on above:Calculus of gallbladder without cholecystitis without obstruction [K80.20]Start: 09-16-2024 End: 96-39-7200O-mail encounter from John Moreland APRN.CNP Work Phone: pre AnesthesiaStart: 09-16-2024 End: 69-00-3330Wpaettoco to establishmentPacc Alee 1 Work Phone: pre AnesthesiaStart: 09-16-2024 End: 00-52-4119wruquecrknGQLA A COSTIN IIIFacility:[facility] Start: 09-16-2024 End: 30-20-2639Jngqewbtwy consultationPacc [place] 1 Work Phone: Pre AnesthesiaComment on above:Pre-op examination (Primary Dx); Uncomplicated asthma, unspecified asthma severity, unspecified whether persistent; Pure hypercholesterolemia, unspecified; Hypertension, unspecified type; Sleep apnea, unspecified type; Biliary calculus of other site without obstruction; Hypothyroidism, unspecified typeStart: 56-46-2505Crinhhepw for other preprocedural examinationJONO GONZALEZ IIIBlanchard Valley Health SystemStart: 09-16-2024 End: 69-40-5544Wugcrjlqyjssn examination donePacc [place] 1 Work Phone: [facility] Work Phone: Start: 09-15-2024 End: 30-52-3550Ljtczhaaj encounterJono Gonzalez MD Work Phone: General SurgeryComment on above:Schedule SurgeryStart: 09-12-2024 End: 53-33-7972Beryxbz encounter procedureJono Gonzalez MD Work Phone: General SurgeryComment on above:Calculus of gallbladder without cholecystitis without obstruction (Primary Dx)Start: 09-12-2024 End: 76-96-2695jsjbcfwtdxWMTD A COSTIN IIIFacility:[facility] Start: 09-11-2024 End: 59-76-5293Wuxndglkk encounterShweta Hsu RN Work Phone: General SurgeryStart: 52-78-4168rgqyystvnnQkdwczgu:GS [place]vueStart: 08-14-2024 End: 18-30-6518Mzhsmnxhq encounterSjair Pelayo MD Work Phone: Pulmonary MedicineComment on above:Image requestStart: 08-12-2024 End: 62-79-4093oywgppnlbfELYAM R PANDITFacility:[facility] Hospitaltart: 08-12-2024 End: 23-20-7235Kpdkanr encounter procedureSjair Pelayo MD Work Phone: Pulmonary MedicineComment on above:Severe persistent asthma without complication (Primary Dx); Shortness of breathStart: 07-02-2024 End: 02-53-9913Ppjwmugnj encounterNicole Penny DO Work Phone: [facility] STATE R[facility]TEStart: 06-18-2024 End: 86-53-7683sbkmmedosaQbflymu J DittyFacility:[facility] Hospitaltart: 06-09-2024 End: 33-63-2066Bslrtz outpatient new 45 minutesToalphonse Briscoe MD Work Phone: [facility] SWS ALLComment on above:Wheeze (Primary Dx); Chronic rhinitis; Recurrent sinus infectionsStart: 06-09-2024 End: 70-06-2572yayudjjlniLEXV E RAMBASEKNot AvailableStart: 06-09-2024 End: 02-70-3481Rivqvw flowsheetToalphonse Briscoe MD Work Phone: [facility] SWS ALLStart: 06-09-2024 End: 16-88-7010Kothle flowsheetToalphonse Briscoe MD Work Phone: [facility] SWS ALLStart: 06-09-2024 End: 97-50-2304Hoeusj OnlyTodd E Rachna MILES Work Phone: [facility] External Department UnsolicitedStart: 05-22-2024 End: 59-53-1746Xyrwmh OnlyNot In System Ref ProvProMedica Physicians General SurgeryStart: 05-15-2024 End: 07-03-1567Pjjjpswpg encounterRegmario Mack RMAProMedica Physicians General SurgeryStart: 04-16-2024 End: 60-67-3273Ckrmuu flowsheetNicole Penny DO Work Phone: [facility] [facility] [facility]TEStart: 04-16-2024 End: 60-50-7151Nrwnop flowsheetNicole Penny DO Work Phone: noms [address] [address]TEStart: 04-16-2024 End: 00-08-0642nntvvbrqdbPZTTEU DANNERNot AvailableStart: 04-16-2024 End: 35-46-8601Nrzsal outpatient visit 25 minutesNicole Penny DO Work Phone: noms [facility] R[address]TEComment on above:Hypersomnia (Primary Dx); JANIS (obstructive sleep apnea); Snoring; Memory lossStart: 08-07-2023 End: 68-66-4351Ahretbthc department patient visitArcynthia Dennison DO Work Phone: [facility] Emergency MedicineComment on above:Fall, initial encounter (Primary Dx); Closed head injury, initial encounterStart: 12-14-2022 End: 23-84-0507vrwfnwfssaZysmdo Bailey Other [facility] [employer] Other Start: 15-32-5379Sxmjhc outpatient new 30 minutes Mirta JarrellG Urgent Care ClydeStart: 54-64-2479Upqhaoipe for general adult medical examination without abnormal findingsDR RAKESH VICTORIABethesda North Hospital Start: 08-08-2022 End: 76-70-0913unpjqvjylwDS RAKESH HOYFacility:W2Cesjc: 08-08-2022 End: 12-19-2614Lvosashcj for general adult medical examination without abnormal findingsDR RAKESH HOYFacility:R7Tztim: 02-27-2022 End: 84-14-3787hvuptmqwqkSH RAKESH HOYFacility:W3Btggb: 01-04-2022 End: 79-90-2357aqurczmkqxYG RAKESH HOYFacility:W1Eypvl: 11-14-2021 End: 17-02-4567cptaoiotqtAO RAKESH HOYFacility:M7Uifwo: 10-07-2021 End: 37-67-8091tjapstobglHC RAKESH HOYFacility:H1 Procedures DateProcedureProcedure DetailPerforming ClinicianStart: 41-87-5971Hdm routine ecg w/least 12 lds i&r onlyCcf ProviderStart: 09-30-2024 End: 93-39-3462Dohd surg cholecystectomy w/cholangiographyJono Gonzalez MD Work Phone: Start: 22-27-3431Ipeqjsjj diphtheriaTodbrian Briscoe MD Work Phone: Start: 21-95-8923Anhpz of gammaglobulin iga igd igg igm eachBreann Briscoe MD Work Phone: Start: 66-25-9545Amrduyls blood count with white cell differential, automatedBreann Briscoe MD Work Phone: Start: 56-30-6730DXZOZAADWVKM AB (23 SEROTYPE)Breann Briscoe MD Work Phone: Start: 86-31-8960WYKYIRXK LABSNot In System Ref Prov Start: 27-97-5156UW CERVICAL SPINE WO IV CONTRASTDOUGLAS HOYStart: 06-22-2287OC THORACIC SPINE WO IV CONTRASTDOUGLAS HOYStart: 47-48-2932HA HEAD WO IV CONTRAST RAKESH HOYStart: 22-27-6136JRM 12-LEADDOUGLAS HOYStart: 47-46-9735YKE W Auto Differential panel - BloodDOUGLAS HOYStart: 44-41-9408Wuqshuxjcdqoj metabolic 2000 panel - Serum or PlasmaDOUGLAS HOYStart: 86-35-7878QFQPDXU-INRDOUGLAS HOY Start: 83-77-4923Bd cervical spine w/o contrast materialAngela C Sales DO Work Phone: Start: 66-62-4981Su head/brain w/o contrast material Neelima C Sales DO Work Phone: Start: 81-19-6780Wyk routine ecg w/least 12 lds trcg only w/o i&rAngela C Sales DO Work Phone: Start: 18-27-9729Zfbzhqgronogl metabolic panelAngela C Sales DO Work Phone: Start: 76-51-0041WncehmbysfqArzhez Penny DO Work Phone: Plan of Treatment DateCare ActivityDetailAuthorStart: 20-20-3171Mmocp microalbumin profile DTaP,Tdap,Td Vaccine (2 - Td or Tdap)[facility]tart: 42-36-9656Cjxzddrk ScreeningDiabetes ScreeningGood Samaritan Hospitaltart: 76-83-6386Agqaquuyw vaccinationInfluenza VaccineLouis Stokes [facility] SystemStart: 11-10-2024 End: 38-23-0891Jrqjkop encounter orpzgfcxk87/28/2025 2:00 PM EDT Office Visit Pulmonary Medicine [address] [place], [place] [id number] Jazmyne Liu, NOELLE.AUTOMOTIVE ELECTRICIAN HELPER [address] [facility] [place] [address] Return in about 3 months (around 11/10/2024).Pulmonary MedicineComment on above:Return in about 3 months (around 11/10/2024).Start: 11-10-2024 End: 51-81-9315mziflkyrvuUhnjdwxch LabComment on above:Severe persistent asthma without complication [J45.50]Start: 10-16-2024 End: 26-16-3937Ggllbao encounter rtmmkycwi67/03/2025 8:30 AM EDT Office Visit General Surgery [address] [place] [address] Jono Gonzalez III, MD [address] [place] [address] POST OP [place] W GRAMSGeneral SurgeryComment on above:POST OP [place] W GRAMSStart: 09-30-2024 End: 72-66-1428Idyvrmown to same day surgery xjptut5109/30/2024 10:30 AM EDT - 09/30/2024 11:35 AM EDT Surgery Ambulatory Surgery [address] [facility] [place] [address] Jono Gonzalez III, MD [address] [place] [address] LAPAROSCOPIC CHOLECYSTECTOMY WITH GRAMSAmbulatory SurgeryComment on above:LAPAROSCOPIC CHOLECYSTECTOMY WITH GRAMS Start: 09-30-2024 End: 91-11-8484Xusk surg cholecystectomy w/cholangiographyLAPAROSCOPIC CHOLECYSTECTOMY WITH GRAMS Calculus of gallbladder without cholecystitis without obstruction 09/30/2024 10:30 AM EDTMC ASC LORAINStart: 43-31-7922Ctdlvwcwyc hospital visit by bpxrprxiy02/18/2025 10:30 AM EDT Hospital Encounter Ambulatory Surgery [address] [facility] [place] [address] Jono Gonzalez III, MD [address] [place] [address] Calculus of gallbladder without cholecystitis without obstruction [K80.20] Ambulatory SurgeryComment on above:Calculus of gallbladder without cholecystitis without obstruction [K80.20]Start: 09-12-2024 End: 23-22-2684Uiwqxmu encounter exfibhxxk89/28/2025 12:00 PM EST Office Visit General Surgery [address] [facility] [place] [address] Jono Gonzalez III, MD [address] [facility] [address] CholelithiasisGeneral SurgeryComment on above:CholelithiasisStart: 07-03-2024 End: 73-01-4851Nfpazry encounter gfxepsjlm80/19/2024 2:20 PM EST Office Visit [facility] [address] [place] [phone] Breann Briscoe MD [address] [facility] [address] [place] [address] [facility]ST[facility] ALLStart: 74-94-9480Odoloczfq for malignant neoplasm of breastMammogramNOLA HealthcareStart: 06-09-2024 End: 13-39-8908Czvlnss encounter rdwxereiw67/25/2024 2:40 PM EST Office Visit [facility] [address] [facility] [address] [place] [phone] Breann Briscoe MD [address] [facility] [address] [place] [address] ArrivedEAST ALABAMA [facility] ALLComment on above:ArrivedStart: 06-09-2024 End: 72-91-0153ATK W Auto Differential panel - BloodCBC and differential Lab Routine Recurrent sinus infections Expected: 06/09/2024 (Approximate), Expires: 06/09/2025NOLA HealthcareComment on above:Expected: 06/09/2024 (Approximate), Expires: 06/09/2025Start: 06-09-2024 End: 68-27-6661Nhdaaxmgpz / Tetanus Antibody PanelDiphtheria / Tetanus Antibody Panel Lab Routine Recurrent sinus infections Expected: 06/09/2024 (Approximate), Expires: 06/09/2025NOLA HealthcareComment on above:Expected: 06/09/2024 (Approximate), Expires: 06/09/2025Start: 06-09-2024 End: 41-02-2166SlV [Mass/volume] in Serum or PlasmaIgA Lab Routine Recurrent sinus infections Expected: 06/09/2024 (Approximate), Expires: 06/09/2025NOLA HealthcareComment on above:Expected: 06/09/2024 (Approximate), Expires: 06/09/2025Start: 06-09-2024 End: 22-30-9090BhX [Units/volume] in Serum or PlasmaIgE Lab Routine Recurrent sinus infections Expected: 06/09/2024 (Approximate), Expires: 06/09/2025NOLA HealthcareComment on above:Expected: 06/09/2024 (Approximate), Expires: 06/09/2025Start: 06-09-2024 End: 27-60-1519AbF [Mass/volume] in Serum or PlasmaIgG Lab Routine Recurrent sinus infections Expected: 06/09/2024 (Approximate), Expires: 06/09/2025NO [facility] Work Phone: Comment on above:Expected: 06/09/2024 (Approximate), Expires: 06/09/2025Start: 06-09-2024 End: 94-44-7050ClT [Mass/volume] in Serum or PlasmaIgM Lab Routine Recurrent sinus infections Expected: 06/09/2024 (Approximate), Expires: 06/09/2025 HealthcareComment on above:Expected: 06/09/2024 (Approximate), Expires: 06/09/2025Start: 06-09-2024 End: 19-30-7828Bfxqiun toxoid, IgGTetanus toxoid, IgG Lab Routine Recurrent sinus infections Expected: 06/09/2024 (Approximate), Expires: 06/09/2025NOLA HealthcareComment on above:Expected: 06/09/2024 (Approximate), Expires: 06/09/2025Start: 05-28-2024 End: 88-59-4889Cuwzsgy encounter raxfgppku34/13/2024 4:00 PM EST Office Visit [facility] [address] [place] [id number] Jennifer Jennings PA [address] [place] [address] [facility] OBStart: 32-40-1681Nflcf-19 Vaccine ( season)Covid-19 Vaccine ( season)[facility]2024 Influenza vaccinationSaint Mary's Health CenterStart: 87-18-7492Tgwdfdbxk vaccination Influenza Vaccine (#1)[facility]: 22-13-2365JALWY-19 Vaccine (3 - Pfizer series)COVID-19 Vaccine (3 - Pfizer series)[facility]: 44-46-2281Uujyrkxsyagvin of varicella zoster vaccineZoster (Shingles) Vaccine (1 of 2)[facility]: 49-20-9714Eyewwvnzzutu Vaccine: 50+ (1 of 1 - PCV)Pneumococcal Vaccine: 50+ (1 of 1 - PCV)[facility]: 95-11-6190Tafebzfd Vaccine (1 of 2)Shingrix Vaccine (1 of 2)[facility]: 54-28-8086Tjkcdr Vaccines (1 of 2)Zoster Vaccines (1 of 2)[facility]: 04-61-1090Frdja panel Lipid ScreeningGood Samaritan Hospitaltart: 36-19-5979Pbbtxxcwz for malignant neoplasm of colonGood Samaritan Hospitaltart: 00-42-6394Lfvvugewb for malignant neoplasm of breastUnHarrison [facility] Hospital: 63-28-5920Bqqosxowj for malignant neoplasm of cervixSaint Mary's Health CenterStart: 46-14-6648KCkL/Tdap/Td Vaccines (1 - Tdap)DTaP/Tdap/Td Vaccines (1 - Tdap)[facility]: 41-79-8619Cdgvqsbzl for malignant neoplasm of cervixSelect [facility]: 51-69-7005BNeL,Tdap and Td Vaccines (1 - Tdap)DTaP,Tdap and Td Vaccines (1 - Tdap)[facility]: 24-13-2430Tgsqohtrc B Vaccine (1 of 3 - 19+ 3-dose series)Hepatitis B Vaccine (1 of 3 - 19+ 3-dose series) [facility]: 01-16-7781Nwgmt microalbumin profileDTaP,Tdap,Td Vaccine (1 - Tdap)[facility]: 89-24-3058Dbcqv BMI ScreeningAdult BMI ScreeningProSelect Medical [facility] Hospital - Dublintart: 85-74-9361Onuwih PCP Team Chronic Disease VisitAnnual PCP Team Chronic Disease VisitGood Samaritan Hospitaltart: 1983 Anxiety ScreeningAnxiety ScreeningGood Samaritan Hospitaltart: 50-35-8802JD Controlled (<130/80)BP Controlled (<130/80)[facility]: 56-83-6050Gmscjompdk ScreeningDepression ScreeningGood Samaritan Hospitaltart: 46-87-9432Tmofbydf mellitus screeningDiabetes ScreeningSelect [facility]: 1983 Hepatitis C screeningHepatitis C ScreeningOhioHealth Grady Memorial Hospital Start: 70-44-9804CGF screeningHIV ScreeningGood Samaritan Hospitaltart: 1983 SpirometrySpirometryGood Samaritan Hospitaltart: 69-47-7830Bxhtocpugt Screening Depression ScreeningHugh Chatham Memorial Hospitaltart: 43-86-9530Nwswhks Screening Tobacco ScreeningProSelect Medical OhioHealth Rehabilitation Hospital - Dublintart: 18-83-5748YOI Vaccines (1 of 1 - Standard series)MMR Vaccines (1 of 1 - Standard series)[facility]: 25-15-8918Eiufyxgig B Vaccines (1 of 3 - 3-dose series)Hepatitis B Vaccines (1 of 3 - 3-dose series)[facility]: 63-30-3361KYB screeningHIV ScreeningSelect Medical [facility]: 59-16-3199Ljfyn panelLipid PanelSelect Medical [facility]: 28-89-0219Ufxgjuena for malignant neoplasm of colonSelect Medical [facility]: 66-24-6800Miwvki Adult PhysicalYearly Adult PhysicalOhioHealth Grady Memorial HospitalEC 12 leadECG 12 lead ECG STAT 08/07/2023 8:33 AM [facility] Service Area Work Phone: End: 20-32-8648VLG [facility] Work Phone: Comment on above:ONCE for 1 Occurrences starting 09/30/2024 until 09/30/2024 End: 91-01-6685LEMAVT OXIDE, EXHALEDNITRIC OXIDE, EXHALED PFT Routine Severe persistent asthma without complication 1 Occurrences starting 08/12/[address] [place] [address] Work Phone: Comment on above:1 Occurrences starting 08/12/2024 until 09/12/2025 End: 26-10-8679NTAFRXOVAD WITH DILATOR IF OBSTRUCTEDSPIROMETRY WITH DILATOR IF OBSTRUCTED PFT Routine Severe persistent asthma without complication 1 Oc currences starting 08/12/2024 until 09/12/2025[facility] ClinicComment on above:1 Occurrences starting 08/12/2024 until 09/12/2025STREPTOCOCCUS PNEUMONIA AB (IGG) (23 SEROTYPES)STREPTOCOCCUS PNEUMONIA AB (IGG) (23 SEROTYPES) Lab Routine Recurrent sinus infections Ordered: 06/09/2024NOLA HealthcareComment on above: Ordered: 06/09/2024Tissue Pathology biopsy report Work Phone: Comment on above:Release Upon Ordering for 1 Occurrences starting 09/30/2024, 1 completed Payers DatePayer CategoryPayerPolicy [id number] County [id number] County Hospital Managed Care - OtherHEN[facility] [id number] [id number].3.941[id number] 2.16.840.1.576344.3.57[id number] 2.16.840.1.372202.3.57[id number] 2.16.840.1.859919.3.57[id number] 2.16.840.1.044605.3.57[id number] 2.16.840.1.910979.3.57[id number] 2.16.840.1.762429.3.57[id number] 2.16.840.1.292061.3.57[id number] 2.16.840.1.842299.3.579.2.731224-41-0329Kffm-[id number] [id number] 2.16840.1.562885.3.579.2.531 Social History DateTypeDetailFacilityUnknown if ever smokedNonevada regional medical center [employer] Other Start: 04-16-2024 End: 09-35-7244Fbh Assigned At BirthNew[place] [employer] Other Tobacco smoking status NHISTobacco smoking consumption unknownLouis Stokes [facility] SystemStart: 59-02-4990Ylr Assigned At BirthNot on file [facility] Work Phone: Start: 07-28-2023 End: 45-64-8764Yumrkgsz to SARS-CoV-2 (event)Not [facility] Work Phone: Start: 04-16-2024 End: 82-39-2565Lgwlfto smoking status NHISNever smoked tobaccoALTA VIEW [facility] Healthcare Start: 04-16-2024 End: 14-83-6923Fzormcj of Social functionNOLA HealthcareStart: 36-07-2283Dsn assigned at birthFeNew [facility] Deacon[facility] HealthcareStart: 79-04-8297Wfupuh identityIdentifies as female gender (finding)[facility] HealthcareStart: 70-16-2896Ykvnah orientation Heterosexual (finding)[facility] HealthcareStart: 34-92-5070Qsbpjrm use and exposure Smokeless tobacco non-userAvita Health System Bucyrus HospitalNational Score (1-100), lower number is lower ovsb35RykdekagcGood Samaritan Hospitaltart: 31-42-3829UkxMtvrpn (finding)[facility] SystemStart: 09-16-2024 End: 83-62-9503Pnnsoatqp beverage intakeLifetime non-drinker (finding)[facility] Clinical Notes 12-14-2022 to 10-16-2024 Note Date & MiriEzclPflsfgsz46-86-2586 NoteHNO ID: [id number] Author: JONO GONZALEZ III, MD Service: ? [...] Return to office PRN. Jono Gonzalez III, [facility]04-03-2025 History of Present illness Narrative* Jono Gonzalez III, MD - 10/16/2024 8:31 AM EDT This patient is 16 days post op [...] Jono Gonzalez III, MD documented in this encounterAvita Health System Bucyrus Hospital03-20-2025 Telephone encounter Note * Telephone Encounter - Shweta Hsu RN - 10/02/2024 9:01 AM EDT POST OP PHONE CALL: Patient states she is doing really really well 1)Discussed/Advised of wound care of no water immersion, may shower and let the soap and water fromthe upper body cascade over the incisions. Avoid [...] then would need to be off longer. [facility] Work Phone: [phone] Miscellaneous Notes* Telephone Encounter - Shweta Hsu RN - 10/02/2024 9:01 AM EDT POST OP PHONE CALL: Patient states she is doing really really well 1)Discussed/Advised of wound care of no water immersion, may shower and let the soap and water fromthe upper body cascade over the incisions. Avoid [...] to be off longer. documented in this encounterAvita Health System Bucyrus Hospital03-18-2025 NoteHNO ID: [id number] Author: GOSIA SÁNCHEZ RN Service: ? Author Type: Registered Nurse Type: Nursing Progress Note Filed: 09/30/2024 11:50 Note Text: Dr. Elise has cleared pt for discharge. EKG WNL. Chest heaviness is gone. [facility]03-18-2025 Nurse Note* Gosia Sánchez RN - 09/30/2024 11:[address] Elise has cleared pt for discharge. EKG WNL. Chest heaviness is gone. [facility]03-18-2025 Nurse Note* Gosia Sánchez RN - 09/30/2024 11:[address] Elise has cleared pt for discharge. EKG WNL. Chest heaviness is gone. * Gosia Sácnhez RN - 09/30/2024 11:14 AM EDT C/O chest heaviness. VSS. O2 on at 2L. H/O recent chest heaviness. DE ruled out. documented in this encounterAvita Health System Bucyrus Hospital03-18-2025 NoteHNO ID: [id number] Author: GOSIA SÁNCHEZ RN Service: ? Author Type: Registered Nurse Type: Nursing Progress Note Filed: 09/30/2024 11:16 Note Text: C/O chest heaviness. VSS. O2 on at 2L. H/O recent chest heaviness. DE ruled out.[facility]03-18-[facility] Nurse Note* Gosia Sánchez RN - 09/30/2024 11:14 AM EDT C/O chest heaviness. VSS. O2 on at 2L. H/O recent chest heaviness. DE ruled out. [facility]03-18-2025 NoteHNO ID: [id number] Author: EUSEBIO VENEGAS APRN.OPERATIONS ADMINISTRATOR Service: Anesthesiology Author Type: Nurse Auxiliary Equipment Operator Type: Anesthesia Procedure Notes Filed: 09/30/2024 09:30 Note Text: ANESTHESIOLOGY PROCEDURE NOTE Airway General Information Procedure Start Time/Medication Administration: 09/30/2024 9:19 AM Procedure End Time: 09/30/2024 9:19 AM Patient location during procedure: OR Patient identity confirmed: arm band and patient Staffing OPERATIONS ADMINISTRATOR: Eusebio Venegas APRN.OPERATIONS ADMINISTRATOR Performed by: OPERATIONS ADMINISTRATOR Indications and Patient Condition Indications for airway [...] 1 Airway not difficult SIGNATURE: Eusebio Venegas APRN.OPERATIONS ADMINISTRATOR PATIENT NAME: Praveena Dacosta DATE: September 30, 2024 TIME: 9:30 AM CSN: [id number] Valley Health System03-18-2025 Surgery Surgical operation note* Operative Report - Jono Gonzalez III, MD - 09/30/2024 9:12 AM EDT OPERATIVE REPORT LOG ID: [id number] SURGERY/PROCEDURE DATE: 09/30/2024 INCISION/PROCEDURE START TIME: 9:27 AM INCISION CLOSE/PROCEDURE END TIME: 9:44 AM SURGEON: Jono Gonzalez III, MD MOUNTING MACHINE OPERATOR: Yesenia Monson PA-C OPERATION: Laparoscopic cholecystectomy (15882). ANESTHESIA: GETA and 20 mL of 0.5% [...] further major extensive surgery, post cholangiogram pancreatitis, andconversion to open approach were all discussed. Booklet [...] distally and it was divided. The cystic arterywas identified and 2 clips were placed proximally [...] to achieve adequate postoperative analgesia. Once this wascompleted, the skin was closed with 0000 monocryl [...] DATE: September 30, 2024 TIME: 9:45 AM [facility]03-18-2025 Surgical operation note* Operative Report - Jono Gonzalez III, MD - 09/30/2024 9:12 AM EDT OPERATIVE REPORT LOG ID: [id number] SURGERY/PROCEDURE DATE: 09/30/2024 INCISION/PROCEDURE START TIME: 9:27 AM INCISION CLOSE/PROCEDURE END TIME: 9:44 AM SURGEON: Jono Gonzalez III, MD MOUNTING MACHINE OPERATOR: Yesenia Monson PA-C OPERATION: Laparoscopic cholecystectomy (17339). ANESTHESIA: GETA and 20 mL of 0.5% [...] further major extensive surgery, post cholangiogram pancreatitis, andconversion to open approach were all discussed. Booklet [...] distally and it was divided. The cystic arterywas identified and 2 clips were placed proximally [...] to achieve adequate postoperative analgesia. Once this wascompleted, the skin was closed with 0000 monocryl [...] 2024 TIME: 9:45 AM documented in this encounterAvita Health System Bucyrus Hospital03-18-2025 History and physical note * Jono Gonzalez III, MD - 09/30/2024 8:39 AM EDT UPDATED HISTORY AND PHYSICAL EXAMINATION SERVICE DATE: 09/30/2024 SERVICE TIME: 8:39 AM PHYSICAL EXAM MUST BE COMPLETED ON ADMISSION The History and Physical (completed in the past 30 days) has been reviewed and the patient has beenexamined. The contents accurately reflect the patient's condition with the following additions or revisions since the H&P was completed. Examination indicates no changes. This H&P can be found in the Electronic Medical Record dated 09/16/2024. SIGNATURE: Jono Gonzalez III, MD PATIENT NAME: Praveena Dacosta DATE: September 30, 2024 TIME: 8:39 AM [facility]03-18-2025 History and physical note* Jono Gonzalez III, MD - 09/30/2024 8:39 AM EDT UPDATED HISTORY AND PHYSICAL EXAMINATION SERVICE DATE: 09/30/2024 SERVICE TIME: 8:39 AM PHYSICAL EXAM MUST BE COMPLETED ON ADMISSION The History and Physical (completed in the past 30 days) has been reviewed and the patient has beenexamined. The contents accurately reflect the patient's condition with the following additions or revisions since the H&P was completed. Examination indicates no changes. This H&P can be found in the Electronic Medical Record dated 09/16/2024. SIGNATURE: Jono Gonzalez III, MD PATIENT NAME: Praveena Dacosta DATE: September 30, 2024 TIME: 8:39 AM documented in this encounterAvita Health System Bucyrus Hospital03-18-2025 Hospital Discharge instructions* Discharge Instr - Other Orders* Jono Gonzalez III, MD - 09/30/2024 8:39 AM EDT If you have waterproof skin glue covering the wound(s), you do not need any additional dressing. Donot use ANY lotions or ointments as these [...] per day. We also recommend taking an ztrx-oji-fljcwby stool softer (ie Colace). For questions or concerns occurring immediately post-operatively regarding your IV site, intubation(ie: sore throat, teeth/mouth issues), urinary issues, or anything else not related to the surgicalsite: CALL THE FACILITY WHERE YOUR PROCEDURE WAS DONE [facility] Operating Room: [facility]: CALL THE OFFICE If you have any questions or concerns. CALL IMMEDIATELY IF YOU HAVE NAUSEA/VOMITING, FEVER GREATER THAN 101, INCREASED ABDOMINAL PAIN, INCREASED PAIN, BULGING OR REDNESS AROUND THE INCISION, OR A NEWONSET OF PUS DRAINAGE FROM THE WOUND. Contact my office at [phone] to arrange a follow up appointment in 14-21 days. Jono Gonzalez III, MD documented in this encounterAvita Health System Bucyrus Hospital03-04-2025 Telephone encounter Note * Telephone Encounter - Geovany Moreland APRN.AUTOMOTIVE ELECTRICIAN HELPER - 09/16/2024 1:37 PM EST Hi , It was a pleasure seeing you this morning in the Pre-Anesthesia Clinic. I wanted to help with your request to establish care with a primary care physician at [facility]. Unfortunately, many of the physicians at that location are not currently accepting new patients. You can reach the [place] Scheduling number at [phone], and they may be able to help you find aphysician who is accepting new patients. Additionally, I ve heard that the [place] location ([place] few miles further [place]) has primary care providers with availability, and their contact number is [phone]. I hope this helps, and feel free to reach out if you need anything further! Best regards, Geovany Moreland APRN.CNP [facility]03-04-2025 Miscellaneous Notes* Telephone Encounter - Geovany Moreland APRN.CNP - 09/16/2024 1:37 PM EST Hi , It was a pleasure seeing you this morning in the Pre-Anesthesia Clinic. I wanted to help with your request to establish care with a primary care physician at [facility]. Unfortunately, many of the physicians at that location are not currently accepting new patients. You can reach the [place] Scheduling number at [phone], and they may be able to help you find aphysician who is accepting new patients. Additionally, I ve heard that the [place] location (a few miles further East) has primary care providers with availability, and their contact number is [phone]. I hope this helps, and feel free to reach out if you need anything further! Best regards, Geovany Moreland APRN.CNP documented in this encounterAvita Health System Bucyrus Hospital03-04-2025 Instructions* Patient Instructions* Geovany Moreland APRN.CNP - 09/16/2024 7:21 AM EST PATIENT PREOPERATIVE INSTRUCTIONS Jono Gonzalez III has scheduled you for your procedure at this surgery center: [facility]: [phone] --[address] [address]. Please read below carefully for your personalized instructions. [facility]: [phone] --[phone] [facility] [place] [address]. Please enter through the entrance closest to [...] office. If you are currently using a sylo-jqb-kicj injectable or oral medication for diabetes or weight loss such as Dulaglutide (Trulicity), Exenatide (Byetta, Bydureon), Liraglutide (Victoza, Saxenda), Semaglutide (Ozempic, Wegovy, Rybelsus), or Tirzepatide (Mounjaro), the medicine should be stopped at least 7 days before surgery. These medicines can cause food to remain in your stomach for a very longtime and increase the risks from surgery and [...] Procedures: - YOU MUST HAVE A RESPONSIBLE BUSINESS PROCESS ARCHITECT TAKE YOU HOME. A PORTABLE IRRIGATION OPERATOR OR HOT METAL CHARGER CANNOT BE MADE A RESPONSIBLE BUSINESS PROCESS ARCHITECT. - We recommend that a responsible person stays with you overnight to take care of you. - You cannot stay in a hotel alone after outpatient surgery. You will not be permitted to have yoursurgery, if you do not have someone to [...] Advance Directive, please fax a copy to [phone] or email to for it to be added to your chart. If you do not have an Advance Directive, you can find the appropriate form and more information at [email or web address]. We recommend that youcomplete the Advance Directive form found on the website and bring it with you the day of your surgery. It can be witnessed and scanned into your chart that day. documented in this encounterAvita Health System Bucyrus Hospital03-04-2025 History and physical note * Geovany Moreland APRN.CNP - 09/16/2024 7:00 AM EST Images from the original note were not [...] Had COVID infection 08/31/24, was treated at [facility] Today she is asymptomatic, Lungs CTA, breathing [...] STOP-Bang Score: 0 (JANIS CPAP compliant ) [id number] Score: Age: <65 Sex: female CHF history: No Hypertension history: Yes Stroke/TIA/thromboembolism history: No Vascular disease history: No Diabetes history: No MQT7OL0-CNEr Score: 2 ARISCAT Score: Age: 51-80 Preoperative [...] fevers. Neuro: No history of TIA's, stroke, ASSISTANT PRINCIPAL tumor, impaired sensorium, hemiplegia, paraplegia or quadraplegia. No neurological symptoms or problems. Respiratory: Positive for JANIS CPAP compliant, asthma , Negative for Current cough, Pneumonia within6 weeks (date) Cardiovascular: Positive for: HTN, HLD, Negative for CAD, Chest Pain, CHF, DVT/PE GI: Positive for Symptomatic cholelithiasis, Negative for Nausea, Vomiting, Abdominal pain, Difficulty swallowing : No history of dysuria, frequency or incontinence,, stones or chronic kidney disease SCRAP CHARGER: Negative for abnormal vaginal bleeding, abnormal vaginal discharge. : Denies, No LMP recorded. Patient is postmenopausal. Endocrine: hypothyroidism Hematology: No history of bleeding or clotting disorder. Pt is not taking anti- coagulation or platelet medications. No history of hematological [...] COVID-19 original vaccine, age 12+ yr, monovalent (PFIZER- BIONTECH - PURPLE TOP) 03/08/2021 Imm Admin: COVID-19 original vaccine, age 12+ yr, monovalent (PFIZER- BIONTECH - PURPLE TOP) No past medical history [...] 2 Puffs as instructed every 4 hours asneeded. Yes FLUoxetine (PROZAC) 10 mg capsule Take [...] Inhale 2 Puffs as instructed two times aday. Patient not taking: Reported on 09/12/2024 No [...] EKG in Summarization Report in care everywhere [facility] 08/31/24 CMP 08/31/24 Lab Value Units [...] EKG in Summarization Report in care everywhere [facility]) [facility] Test Date: 2024-08-30 Pat Name: PRAVEENA DACOSTA Department: Room: - Gender: Female Washer Blanket: : 1965 Requested By: RAKESH VERNON Order Number: [id number] Reading MD: RAKESH VERNON Measurements Intervals [place] Rate: 96 P: 65 MA: 174 QRS: 88 QRSD: 68 T: 40 [...] Praveena Dacosta DATE: 09/16/2024 TIME: 7:52 AM [facility]03-04-2025 History and physical note* Geovany Moreland APRN.CNP - 09/16/2024 7:00 AM EST Images from the original note were not [...] Had COVID infection 08/31/24, was treated at [facility] Today she is asymptomatic, Lungs CTA, breathing [...] STOP-Bang Score: 0 (JANIS CPAP compliant ) [id number] Score: Age: <65 Sex: female CHF history: No Hypertension history: Yes Stroke/TIA/thromboembolism history: No Vascular disease history: No Diabetes history: No UPS0MG3-CTOm Score: 2 ARISCAT Score: Age: 51-80 Preoperative [...] fevers. Neuro: No history of TIA's, stroke, ASSISTANT PRINCIPAL tumor, impaired sensorium, hemiplegia, paraplegia or quadraplegia. No neurological symptoms or problems. Respiratory: Positive for JANIS CPAP compliant, asthma , Negative for Current cough, Pneumonia within6 weeks (date) Cardiovascular: Positive for: HTN, HLD, Negative for CAD, Chest Pain, CHF, DVT/PE GI: Positive for Symptomatic cholelithiasis, Negative for Nausea, Vomiting, Abdominal pain, Difficulty swallowing : No history of dysuria, frequency or incontinence,, stones or chronic kidney disease SCRAP CHARGER: Negative for abnormal vaginal bleeding, abnormal vaginal discharge. : Denies, No LMP recorded. Patient is postmenopausal. Endocrine: hypothyroidism Hematology: No history of bleeding or clotting disorder. Pt is not taking anti- coagulation or platelet medications. No history of hematological [...] COVID-19 original vaccine, age 12+ yr, monovalent (PFIZER- BIONTECH - PURPLE TOP) 03/08/2021 Imm Admin: COVID-19 original vaccine, age 12+ yr, monovalent (PFIZER- BIONTECH - PURPLE TOP) No past medical history [...] 2 Puffs as instructed every 4 hours asneeded. Yes FLUoxetine (PROZAC) 10 mg capsule Take [...] Inhale 2 Puffs as instructed two times aday. Patient not taking: Reported on 09/12/2024 No [...] EKG in Summarization Report in care everywhere [facility] 08/31/24 CMP 08/31/24 Lab Value Units [...] EKG in Summarization Report in care everywhere [facility]) [facility] Test Date: 2024-08-30 Pat Name: PRAVEENA DACOSTA Department: Room: - Gender: Female Washer Blanket: : 1965 Requested By: RAKESH VERNON Order Number: [id number] Reading MD: RAKESH VERNON Measurements Intervals [place] Rate: 96 P: 65 MA: 174 QRS: 88 QRSD: 68 T: 40 [...] 09/16/2024 TIME: 7:52 AM documented in this encounterAvita Health System [facility]03-03-2025 Telephone encounter Note * Telephone Encounter - Marliou Roger - 09/15/2024 2:16 PM EST Spoke with pt scheduled for surgery. [facility]03-03-2025 Miscellaneous Notes* Telephone Encounter - Marilou Roger - 09/15/2024 2:16 PM EST Spoke with pt scheduled for surgery. * Telephone Encounter - Marilou Roger - 09/15/2024 1:17 PM EST Images from the original note were not included. documented in this encounterAvita Health System [facility]03-03-2025 Telephone encounter Note * Telephone Encounter - Marilou Roger - 09/15/2024 1:17 PM EST Images from the original note were not included. [facility]02-28-2025 History and physical note* Jono Gonzalez III, MD - 09/12/2024 9:53 AM EST Ms. Dacosta is here today at the [...] discussed with the patient or authorized business banking representative. The patient or authorized business banking representative has agreed to proceed with the [...] MD cc: Referring provider Elgin Pelayo MD [facility]02-28-2025 History and physical note* Jono Gonzalez III, MD - 09/12/2024 9:53 AM EST Ms. Dacosta is here today at the [...] discussed with the patient or authorized business banking representative. The patient or authorized business banking representative has agreed to proceed with the [...] provider Elgin Pelayo MD documented in this encounter[facility] Telephone encounter Note * Telephone Encounter - Shweta Hsu RN - 09/11/2024 3:55 PM EST Called referring providers office and spoke with staff to please send a copy of US or CT that denotes gallstones as no imaging available. Office fax number given [facility] Work Phone: [phone]) 444-740402-27-2025 Miscellaneous Notes* Telephone Encounter - Shweta Hsu RN - 09/11/2024 3:55 PM EST Called referring providers office and spoke with staff to please send a copy of US or CT that denotes gallstones as no imaging available. Office fax number given * Telephone Encounter - Shweta Hsu RN - 09/11/2024 1:55 PM EST Message left to call the office as patient is scheduled for cholelithiasis and I do not have any imaging for the appt . Informed that we would need this to be seen as it may not be beneficial for patient if no imaging completed. Informed I have done an update but nothing showing yet. documented in this encounter[facility] Telephone encounter Note * Telephone Encounter - Shweta Hsu RN - 09/11/2024 1:55 PM EST Message left to call the office as patient is scheduled for cholelithiasis and I do not have any imaging for the appt . Informed that we would need this to be seen as it may not be beneficial for patient if no imaging completed. Informed I have done an update but nothing showing yet. [facility]02-04-2025 Telephone encounter Note* Telephone Encounter - Mattie Link MA - 08/19/2024 8:51 AM EST Image has been imported into [employer] and is available to view. [facility]02-04-2025 Miscellaneous Notes* Telephone Encounter - Mattie Link MA - 08/19/2024 8:51 AM EST Image has been imported into [employer] and is available to view. * Telephone Encounter - Mattie Link MA - 08/14/2024 11:49 AM EST Faxed image request to [facility] Confirmation received * Telephone Encounter - Mattie Link MA - 08/14/2024 10:59 AM EST Images from the original note were not included. Elgin Pelayo MD P Ingrid Pulm Nurse Could we try to obtain images of CT chest 02/13/2024 from [facility] in [facility]? Thanks documented in this encounterAv[facility]25 Telephone encounter Note * Telephone Encounter - Mattie Link MA - 08/14/2024 11:49 AM EST Faxed image request to [facility] Confirmation received [facility]01-30-2025 Telephone encounter Note* Telephone Encounter - Mattie Link MA - 08/14/2024 10:59 AM EST Images from the original note were not included. Elgin Pelayo MD P Pulm Nurse Could we try to obtain images of CT chest 02/13/2024 from [facility] in [facility]? Thanks [facility]01-28-2025 Instructions* Patient Instructions* Elgin Pelayo MD - 08/12/2024 2:02 PM [...] office or send me a message through [employer] if you have any questions. Sincerely, Elgin Pelayo MD documented in this encounterAvita [facility]01-28-[facility]25 History and physical note * Elgin Pelayo MD - 08/12/2024 1:19 PM EST . [facility] Initial Visit Note Ms. Dacosta is a 59 year old female who presents to the [facility] [place]. Consultation requested by Rakesh Vernon MD for an opinion regarding recurrent bronchitis. My final recommendations/evaluation will be communicated back to the requesting physician by way of shared medicalrecord or letter via US mail. HPI: 59 [...] Required nebs in ED (not admitted) and inhalersat home. Treated at home with CPAP continuously [...] of bronchitis have been coughing, heaviness in chest , dyspnea. No fevers. Sputum thick white or creamy. Treated each episode with levofloxacin. Cannot recall getting steroids - she suspects not. Last episode concluded beginning of June. Current stretch is her longest without bronchitis. Feels she may be getting sick again Evaluated for immunodeficiency by [employer] [employer] at [facility]. On 06/09/2024. Had PFTs. FENO [...] personally reviewed by me Data Reviewed from [facility] (in addition to that noted in HPI, and Past histories above): (Data from patient's OSH mychart shown on phone) CBC: last eos 100 (05/2024) IgE: 45 (wnl) PFT: 08/01/2024 Ratio 75% (normal) FEV1 120%, FVC 125% Reported positive bronchodilator response based on FEF 25-75. RV 129% (high) TLC 133% (high) DLCOc 10 3% (normal) CT Chest: 02/13/2024 (OSH, images unavailable) - [facility] in [facility] Lung: Scattered linear densities and calcifications, chronic scarring is favored. Mild dependent atelectasis. No focal parenchymal infiltrates or significant pulmonary nodules. Pleura: No mass, effusion, pneumothorax Lizeth: Small calcified right hilar lymph nodes. Assessment and Plan: Ms. Dacosta is a 59 year old female who presents to the [facility] [place] for evaluation of bronchitis. #Recurrent bronchitis #Asthma Description of these bronchitis episodes-recurrent, only present after initial COVID infection, never associated with fever or systemic symptoms- is more consistent with exacerbation of airway inflammation/asthma. 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 Flow-volumeloop shows mild scooping. She reports prior benefit [...] oral steroids, ultimately deferred -Should keep her race board attendant appointment for follow-up testing -I will attempt to obtain images of her outside hospital CT -Follow-up in 3 months with spirometry and nitric oxide before hand Elgin Pelayo MD Pulmonary and Critical Care Staff MDM Level 4 [facility]01-28-2025 History and physical note* Elgin Pelayo MD - 08/12/2024 1:19 PM EST . [facility] Initial Visit Note Ms. Dacosta is a 59 year old female who presents to the [facility] [place]. Consultation requested by Rakesh Vernon MD for an opinion regarding recurrent bronchitis. My final recommendations/evaluation will be communicated back to the requesting physician by way of shared medicalrecord or letter via US mail. HPI: 59 [...] Required nebs in ED (not admitted) and inhalersat home. Treated at home with CPAP continuously [...] of bronchitis have been coughing, heaviness in chest , dyspnea. No fevers. Sputum thick white or creamy. Treated each episode with levofloxacin. Cannot recall getting steroids - she suspects not. Last episode concluded beginning of June. Current stretch is her longest without bronchitis. Feels she may be getting sick again Evaluated for immunodeficiency by [employer] at [facility]. On 06/09/2024. Had PFTs. FENO [...] personally reviewed by me Data Reviewed from [facility] (in addition to that noted in HPI, and Past histories above): (Data from patient's OSH mychart shown on phone) CBC: last eos 100 (05/2024) IgE: 45 (wnl) PFT: 08/01/2024 Ratio 75% (normal) FEV1 120%, FVC 125% Reported positive bronchodilator response based on FEF 25-75. RV 129% (high) TLC 133% (high) DLCOc 10 3% (normal) CT Chest: 02/13/2024 (OSH, images unavailable) - [facility] in [facility] Lung: Scattered linear densities and calcifications, chronic scarring is favored. Mild dependent atelectasis. No focal parenchymal infiltrates or significant pulmonary nodules. Pleura: No mass, effusion, pneumothorax Lizeth: Small calcified right hilar lymph nodes. Assessment and Plan: Ms. Dacosta is a 59 year old female who presents to the [facility] [place] for evaluation of bronchitis. #Recurrent bronchitis #Asthma Description of these bronchitis episodes-recurrent, only present after initial COVID infection, never associated with fever or systemic symptoms- is more consistent with exacerbation of airway inflammation/asthma. 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 Flow-volumeloop shows mild scooping. She reports prior benefit [...] oral steroids, ultimately deferred -Should keep her race board attendant appointment for follow-up testing -I will attempt to obtain images of her outside hospital CT -Follow-up in 3 months with spirometry and nitric oxide before hand Elgin Pelayo MD Pulmonary and Critical Care Staff [facility] Level 4 documented in this encounterAv[facility]12-[facility]-2024 Telephone encounter Note * Telephone Encounter - Dave Francis DO - 07/02/2024 12:42 PM EST Needs refill of modafinil [id number] Miscellaneous Notes* Telephone Encounter - Dave Francis DO - 07/02/2024 12:42 PM EST Needs refill of modafinil called into the sleep clinic documented in this encounterSaint Mary's Health [id number] History of Present illness Narrative* Breann Briscoe MD - 06/09/2024 2:40 PM EST Praveena Dacosta is a very pleasant 59 [...] of antibiotics. 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 She has occasional wheeze. She has albuterol [...] Follow-up in 3 weeks. documented in this encounterSaint Mary's Health [id number] Miscellaneous Notes* Telephone Encounter - DEIDRA Muller - 05/15/2024 2:11 PM EDT I called Praveena and left a message to call me to schedule an appointment and a surgery with Dr. Lundberg. I left my phone number and extension on her voicemail. Dr. Lundberg saw the patient at [facility] on 05/11/24 and would like to do a colonoscopy in the next month. * Telephone Encounter - DEIDRA Muller - 05/15/2024 2:11 PM EDT 05/21/24 I called Praveena to schedule the colonoscopy with Dr. Lundberg however her voicemail is full. I calledher emergency contact - / Vanessa - he said she was looking into a referral for a gastroendocrinologist. I will continue to follow up with the patient. I did tell the / Vanessa to have Praveena call me to let me know what she would like to do. [facility] Telephone encounter Note* Telephone Encounter - DEIDRA Muller - 05/15/2024 2:11 PM EDT I called Praveena and left a message to call me to schedule an appointment and a surgery with Dr. Lundberg. I left my phone number and extension on her voicemail. Dr. Lundberg saw the patient at [facility] on 05/11/24 and would like to do a colonoscopy in the next month. [facility]10-31-[facility] Telephone encounter Note* Telephone Encounter - DEIDRA Muller - 05/15/2024 2:11 PM EDT 05/21/24 I called Praveena to schedule the colonoscopy with Dr. Lundberg however her voicemail is full. I calledher emergency contact - / Vanessa - he said she was looking into a referral for a gastroendocrinologist. I will continue to follow up with the patient. I did tell the / Vanessa to have Praveena call me to let me know what she would like to do. [facility]10-02-2024 History of Present illness Narrative* Dave Francis, DO - 04/16/2024 9:30 AM EDT Images from the original note were not [...] to take it she will fall asleep ather desk She was forgetting to take the [...] have COVID again and reportedly has some scarringin her lungs. This is monitored by her [...] was counseled on the risks of stroke, DE, and sudden with JANIS, along with the [...] to clinic: 3 months documented in this encounterSaint Mary's Health CenterAasdqyshwb16-81-1930 Hospital Discharge instructions* Discharge Instructions* Neelima Peralta DO - 08/07/2023 10:23 AM [...] you may notice bruising develop in the nextfew days across your chest and belly where you fell. You may use ice packs to particularly sore areas, and you may alternate tylenol and ibuprofen every 4 hours as needed for pain. [facility] Work Phone: [phone]) 368-392406-01-2023 Evaluation note* Encounter Date Diagnosis Assessment Notes Treatment Notes Treatment Clinical Notes Dec, Low back strain, initial encount er (ICD-10 - S39.012A) 60 mg of Toradol [...] resolved. Patient verbalized understanding of treatment plan [employer] Other Evaluation note* Diagnosis Fall, initial encounter- Primary Closed head injury, initial encounter documented in this encounter [facility] Work Phone: Evaluation note* Diagnosis Hypersomnia- Primary Hypersomnia, unspecified JANIS (obstructive sleep apnea) Obstructive sleep apnea (adult) (pediatric) Snoring Other dyspnea and respiratory abnormality Memory loss [facility]* Diagnosis Wheeze- Primary Wheezing Chronic rhinitis Recurrent sinus infections Unspecified sinusitis (chronic) documented in this encounter [facility]* Diagnosis Hypersomnia Hypersomnia, unspecified documented in this encounter [facility]* Diagnosis Severe persistent asthma without complication- Primary Shortness of breath documented in this encounter [facility]* Diagnosis Calculus of gallbladder without cholecystitis without obstruction- Primary Calculus of gallbladder without mention of cholecystitis or obstruction documented in this encounter [facility]* Diagnosis Pre-op examination- Primary Preoperative examination, unspecified Uncomplicated asthma, unspecified asthma severity, unspecified whether persistent Pure hypercholesterolemia, unspecified Hypertension, unspecified type Sleep apnea, unspecified type Biliary calculus of other site without obstruction Hypothyroidism, unspecified type * Assessment & Plan Note - Geovany Moreland APRN.CNP - 09/16/2024 7:51 AM EST Associated Problem(s): [...] Had COVID infection 08/31/24, was treated at [facility] Today she is asymptomatic, Lungs CTA, breathing [...] lifestyle modifications encouraged [facility] Diagnosis Calculus of gallbladder without cholecystitis [...] cholecystitis or obstruction documented in this encounter [facility] note* Diagnosis Pre-op examination- Primary Preoperative examination, unspecified Uncomplicated asthma, unspecified asthma severity, unspecified whether persistent Pure hypercholesterolemia, unspecified Hypertension, unspecified type Sleep apnea, unspecified type Biliary calculus of other site without obstruction Hypothyroidism, unspecified type Post-op pain- Primary Other acute postoperative pain Calculus of gallbladder without cholecystitis without obstruction Calculus of gallbladder without mention of cholecystitis or obstruction documented in this encounter [facility] note* Diagnosis Pre-op examination- Primary Preoperative examination, unspecified Uncomplicated asthma, unspecified asthma severity, unspecified whether persistent (HCC) Pure hypercholesterolemia, unspecified Hypertension, unspecified type Sleep apnea, unspecified type Biliary calculus of other site without obstruction Hypothyroidism, unspecified type Post-operative state- Primary Other postprocedural status documented in this encounter [facility] note* Diagnosis Onset Date Resolution Status Admit Date Daytime hypersomnolence acuteAugust 2024 11:17amOSA (obstructive sleep apnea)acuteAugust 2024 11:17amSnoringacuteAugust 2024 11:17am [facility] Work Phone: History general Narrative - Reported* Type Description Date Medical History high blood pressure Medical Historythyroid diseaseSurgical HistoryC sectionSurgical Historylobectomy Surgical Historywrist surgerySurgical Historybowel surgeryHospitalization Historysee above [employer] Other InstructionsNot on filedocumented in this encounter [facility] SystemInstructionsNot on filedocumented in this encounter [facility] SystemReason for referral (narrative)* Outpatient Procedure (Routine) - Pending ReviewSpecialtyDiagnoses / ProceduresReferred By Contact [facility] Diagnoses Severe persistent asthma without complication Procedures SPIROMETRY WITH DILATOR IF OBSTRUCTED BRNCDILAT RSPSE SPMTRY PRE&[place] [address] [place] [address] [facility] [address] [place] [id number] Referral IDStatusReasonStart DateExpiration DateVisits RequestedVisits [id number] Review Auto-Generated Referral * Outpatient Procedure (Routine) - Pending ReviewSpecialtyDiagnoses / Procedures Referred By ContactReferred To [facility] Diagnoses Severe persistent asthma without complication Procedures NITRIC OXIDE, EXHALED NITRIC OXIDE [place] [address] [place] [address] [facility] [address] [place] [address] Referral IDStatusReasonStart DateExpiration DateVisits RequestedVisits [id number] Review Auto-Generated Referral [facility] HospitalReason for referral (narrative)No reason for referral information availableKettering Health [facility] Work Phone: Reason for visit Narrative* Auth/Cert (Routine) SpecialtyDiagnoses / ProceduresReferred By ContactReferred To ContactTHE [facility] Diagnoses Calculus of gallbladder without cholecystitis without obstruction Calculus of gallbladder without cholecystitis without obstruction [K80.20] Procedures LAPS SURG CHOLECYSTECTOMY W/CHOLANGIOGRAPHY LAPAROSCOPIC CHOLECYSTECTOMY WITH GRAMS Amb[facility] [address] [place] [address] Phone: tel: Referral IDStatusReasonStart DateExpiration DateVisits RequestedVisits [id number] [facility] Summary Purpose Family History Relationship Condition Age at Onset Recorded Date/T brissa brother Hypertension Unknown fatherDiabetes mellitusUnknownHeart diseaseUnknownDeceasedUnknownmotherHeart diseaseUnknown Advance Directives Advance Directive Response Recorded Date/ Time Advance Directives No May 11:53am Chief Complaint and Reason for Visit Reason for Visit Admit Date Daytime hypersomnolence February 18, 2025 11:17am JANIS (obstructive sleep apnea) February 11:17am Snoring February 18, 2025 11: 17am Additional Source Comments INFORMATION SOURCE (unrecogn ized section and content) DATE CREATED AUTHOR 08/14/2022 [facility] DATE CREATED AUTHOR AUTHOR'S ORGANIZ ATION 08/31/2023 [facility] DATE CREATED AUTHOR AUTHOR'S ORGANIZ ATION 04/08/2024 [facility] DATE CREATED AUTHOR AUTHOR'S ORGANIZ ATION 06/12/2024 [facility] DATE CREATED AUTHOR AUTHOR'S ORGANIZ ATION 06/28/2024 [facility] DATE CREATED AUTHOR AUTHOR'S ORGANIZ ATION 09/09/2024 [facility] DATE CREATED AUTHOR AUTHOR'S ORGANIZ ATION 10/19/2024 [facility] REASON FOR VISIT (unrecogniz ed section and content) ReasonCommentsFallHit head and upper back; +LOC no thinnersReasonCommentsSleep ApneaReasonCommentsAllergy TestingPt c/o of having bronchitis twice last month and also having colitis, hairs falling out, had covid a couple months ago as well says she can't bounce back like she used to. Wants immune testing. Pt has been off meds for any tasting.ReasonCommentsCoughReports getting sick a lot, covid in fall 2019 and fall 2023, then got bronchitis and pneumonia andthen bronchitis again. Patient states she was told there is some lung scaring.[facility]ReasonCommentsImage requestReasonCommentsNew Patient CholelithiasisReasonCommentsPre-Op VisitReasonCommentsSchedule SurgeryReason CommentsPost Op Follow [employer] 16 f/u after having cholecystectomy. Scheduled Active and Recently Administ ered Medications (unrecognized section and content) Medication Order// fentaNYL PF (Sublimaze) injection 50 mcg (COMPLETED) 50 mcg, intravenous, Once, On Sun08/07/23 at 0815, For 1 dose * 0825 (Given - Provider: Miya Forte RN) Medication Order/ acetaminophen 1,000 mg tab(s) (TYLENOL) (CANCELED) 1,000 mg, ORAL, DIRECTED, Starting on Sun09/30/24 at 0800, Until Sun09/30/24 at 0959, pre o[ med, Preprocedure * 0744 (Given - Provider: Josie Ríos RN) ciprofloxacin iv piggyback 400 mg in D5W 200 mL (CIPRO) (COMPLETED) 400 mg, INTRAVENOUS, at 200 mL/hr, Administer over 60 Minutes, ONCE, 1 dose, On Sun09/30/24 at 0900, Antimicrobial indication: Prophylaxis: Purpose of antimicrobial is to prevent infection., Pharmacist may modify dose per [facility] dose optimization consult agreement: Yes, Preprocedure * 0920 (Given - Provider: Eusebio Venegas APRN.CRNA) promethazine 12.5 mg tab(s) (PHENERGAN) (COMPLETED) 12.5 mg, ORAL, ONCE, 1 dose, On Sun09/30/24 at 0800, Preprocedure * 0744 (Given - Provider: Josie Ríos RN) Medication Order/ lactated ringers iv infusion (CANCELED) 5-30 mL/hr, INTRAVENOUS, CONTINUOUS, Starting on Sun09/30/24 at 0800, Until Sun09/30/24 at 0959, Preprocedure * 0752 (New Bag/Syringe/Bottle - Provider: Josie Ríos RN) * 0912 (Continued by Anesthesia - Provider: Eusebio Venegas APRN.CRNA) * 0959 (Anesthesia Volume Adjustment - Provider: Eusebio Venegas APRN.CRNA) * 0959 (Due: Order Ending - Provider: Julien In Adtr - Comment: [Order ends at this time. Document a Stopped action when infusion is complete.]) lactated ringers iv infusion 30 mL/hr, INTRAVENOUS, CONTINUOUS, Starting on Sun09/30/24 at 1030, Until Sun10/01/24 at 0303 * 1030 (Due) Medication Order503/503/ acetaminophen 650 mg tab(s) (TYLENOL) 650 mg, [...] at 0931, Until Sun09/30/24 at 1000, Intraprocedure * 0931 (Given - Provider: Yesenia Monson PA-C) diphenhydrAMINE 25 mg injection [...] FOR MODERATE PAIN ONLY IF PATIENT IS UNABLETO TOLERATE ORAL THERAPY * 1029 (Given - Provider: Gosia Sánchez RN) HYDROcodone 5 mg - acetaminophen 325 mg tablet (NORCO) (COMPLETED) 1 tablet, ORAL, NEEDED, 1 dose, Starting on Sun09/30/24 at 1012, Until Sun09/30/24 at 1047, Moderate Pain (4-6) - Enteral * 1047 (Given - Provider: Gosia Sánchez RN) meperidine (PF) 12.5 mg injection (DEMEROL) 12.5 mg, INTRAVENOUS, EVERY 10 MINUTES NEEDED, 2 doses, Starting on Sun09/30/24 at 1012, Until Sun10/01/24 at 0303, for shivering, May Repeat 12.5 mg in 10 minutes X1 for Continued Shivering NaCl 0.9% irrigation bottle (CANCELED) NEEDED, Starting on Sun09/30/24 at 0931, Until Sun09/30/24 at 1000, Intraprocedure * 0931 (Given - Provider: Yesenia Monson PA-C) Care Teams (unrecognized sec tion and content) Team MemberRelationshipSpecialtyStart DateEnd Date Rakesh Vernon MD [address] [place] [facility] [place] [address] PCP - General09/06/09Team MemberRelationshipSpecialtyStart DateEnd Date Rakesh Vernon MD [address] [place] [address] PCP - [facility] Gpdgbngh34/9/23Team MemberRelationshipSpecialtyStart DateEnd Date Rakesh Vernon MD [address] [place] [facility] [place] [address] PCP - [facility]05/24/23Te MemberRelationshipSpecialtyStart DateEnd Date Rakesh Vernon MD [address] [place] [facility] [place] [address] PCP - Generalmi Gokwrnyx89/9/23Team MemberRelationshipSpecialtyStart DateEnd Date Rakesh Vernon MD [address] [place] [facility] [place] [address] PCP - [facility]05/24/23Te MemberRelationshipSpecialtyStart DateEnd Date Rakesh Vernon MD [address] [place] [facility] [place] [address] PCP - GeneralFamily Ppoewjus85/9/23Team MemberRelationshipSpecialtyStart DateEnd Date Raeksh Vernon MD [address] [place] [facility] [place] [address] PCP - GeneralFamily Brevbibf52/9/23Team MemberRelationshipSpecialtyStart DateEnd Date Rakesh Vernon MD [address] [place] [facility] [place] [place] [address] ReferringFamily Medicine08/06/24Team MemberRelationshipSpecialtyStart DateEnd Date Rakesh Vernon MD [address] [place] [facility] [place] [place] [address] ReferringFamily Medicine08/06/24Team MemberRelationshipSpecialtyStart DateEnd Date Rakesh Vernon MD [address] [place] [facility] [address] PCP - GeneralFamily Fccwcttr43/28/24Team MemberRelationshipSpecialtyStart Date End Date Rakesh Vernon MD [address] [place] [facility] [place] [place] [address] ReferringFamily Medicine08/06/24Team MemberRelationshipSpecialtyStart DateEnd Date Rakesh Vernon MD [address] [place] [facility] [place] [place] [address] ReferringFamily Medicine08/06/24Team MemberRelationshipSpecialtyStart DateEnd Date Rakesh Vernon MD [address] [place] [facility] [place] [place] [address] ReferringFamily Medicine08/06/24Team MemberRelationshipSpecialtyStart DateEnd Date Rakesh Vernon MD [address] [place] [facility] [place] [place] [address] ReferringFamily Medicine08/06/24Team MemberRelationshipSpecialtyStart DateEnd Date Rakesh Vernon MD [address] [place] [facility] [place] [place] [address] PCP - GeneralFamily Medicine09/19/24 Rakesh Vernon MD [address] [place] [place] [place] [address] ReferringFamily Medicine08/06/24Team MemberRelationshipSpecialtyStart DateEnd Date Rakesh Vernon MD [address] [place] [facility] [place] [place] [address] PCP - GeneralFamily Medicine09/19/24 Rakesh Vernon MD [address] [place] [facility] [place] [place] [address] ReferringFamily Medicine08/06/24Team MemberRelationshipSpecialtyStart DateEnd Date Rakesh Vernon MD [address] [place] [facility] [place] [place] [address] PCP - GeneralFamily Medicine09/19/24 Rakesh Vernon MD [address] [place] [facility] [place] [place] [address] ReferringFamily Medicine08/06/24Team MemberRelationshipSpecialtyStart DateEnd Date Rakesh Vernon MD [address] [facility] [place] [address] [facility] Pzimbnwu10/28/24 Team Status: Active Member Role Status Dates Rakesh Vernon MD Primary Care Provider Active Team Status: Inactive Member Role Status Dates Rakesh Vernon MD Primary Care Provider Active Start: February 18, 2025 End: February 18Charles Rivera ProviderActiveStart: February 18, 2025 End: February 18, 2025 Source Comments (unrecognize d section and content) In the event this informatio n is protected by the Federal Confidentiality of Alcohol and Drug Abuse Patient Records regulations: The Federal rules restrict any use of the information to criminally investigate or prosecute any alcohol or drug abuse patient.[facility] HospitalIn the event this information is protected by the Federal Confidentiality of Alcohol and Drug Abuse Patient Records regulations: The Federal rules restrict any use of the information to criminally investigate or prosecute any alcohol or drug abuse patient.[facility] HospitalIn the event this information is protected by the Federal Confidentiality of Alcohol and Drug Abuse Patient Records regulations: The Federal rules restrict any use of the information to criminally investigate or prosecute any alcohol or drug abuse patient.[facility] HospitalIn the event this information is protected by the Federal Confidentiality of Alcohol and Drug Abuse Patient Records regulations: The Federal rules restrict any use of the information to criminally investigate or prosecute any alcohol or drug abuse patient.[facility] HospitalIn the event this information is protected by the Federal Confidentiality of Alcohol and Drug Abuse Patient Records regulations: The Federal rules restrict any use of the information to criminally investigate or prosecute any alcohol or drug abuse patient.[facility] HospitalIn the event this information is protected by the Federal Confidentiality of Alcohol and Drug Abuse Patient Records regulations: The Federal rules restrict any use of the information to criminally investigate or prosecute any alcohol or drug abuse patient.[facility] HospitalIn the event this information is protected by the Federal Confidentiality of Alcohol and Drug Abuse Patient Records regulations: The Federal rules restrict any use of the information to criminally investigate or prosecute any alcohol or drug abuse patient.[facility] HospitalIn the event this information is protected by the Federal Confidentiality of Alcohol and Drug Abuse Patient Records regulations: The Federal rules restrict any use of the information to criminally investigate or prosecute any alcohol or drug abuse patient.[facility] HospitalIn the event this information is protected by the Federal Confidentiality of Alcohol and Drug Abuse Patient Records regulations: The Federal rules restrict any use of the information to criminally investigate or prosecute any alcohol or drug abuse patient.[facility] HospitalIn the event this information is protected by the Federal Confidentiality of Alcohol and Drug Abuse Patient Records regulations: The Federal rules restrict any use of the information to criminally investigate or prosecute any alcohol or drug abuse patient.[facility] Goals (unrecognized section and content) Goals may [...] PRIMARY CLINICAL RECORDS. [facility]. provides no warranty or guarantee of the accuracy or completeness of information in this document.
--- NOTE | 2025-05-08 07:31 | US_ITS ---
The [address] [address] Patient Name: PRAVEENA DACOSTA MRN: [id number] date: 1965 Sex: F Assigned Patient Location: US Current Patient Location: US Accession/Order Number: [id number] Exam Date: 05/08/2025 07:45 Report Date: 05/08/2025 09:03 At the request of: RAKESH VERNON MD Procedure: US abdomen complete COMPLETE ABDOMINAL ULTRASOUND CLINICAL HISTORY: elevated liver enzymes. Cholecystectomy. COMPARISON: CT 08/30/2024 The gallbladder is surgically absent. The common duct is prominent measuring 9-10 mm. There does appear to be a potential common duct stone. The liver is normal in echogenicity. No intrahepatic masses are seen. There is appropriate hepatopetal flow within the main portal vein. The pancreas shows no significant sonographic abnormality. The right kidney measures 10.3 cm and the left 11.1 cm in craniocaudal dimension. No renal mass lesions or hydronephrosis are identified. The spleen is normal in size and echogenicity measuring 10 cm in craniocaudal dimension. The IVC is patent. No aortic aneurysm is noted. There is no ascites. US/US abdomen complete IMPRESSION: DILATED COMMON DUCT WITH POSSIBLE CHOLEDOCHOLITHIASIS. OTHERWISE UNREMARKABLE POSTCHOLECYSTECTOMY ABDOMEN Impression dictated by: Elisha Oliveira M.D. 05/08/2025 9:03 AM Dictation Location: [place] [address] Electronically authenticated by: [id number] Y Date: 05/08/2025 09:03
== END 2025-05-08 07:25 | disposition home or self-care (01) ==
LOC: US 07:24
PROVIDERS: PCP Family Medicine; Visit Provider Family Medicine
DX: Z79.899 Other long term (current) drug therapy (principal); R74.8 Abnormal levels of other serum enzymes
CPT/HCPCS: 76700

== ENCOUNTER 2025-05-13 09:47 | Outpatient (OUT) | payer BC, SELFPAY ==
--- OUTSIDE RECORDS SUMMARY | 2025-05-13 09:50 | XMS_ITS | Clinical Summary ---
Author Organization [facility] Address [id number] [address] [place] [address] Care Team Providers Care Bone Tender Name Role Phone Sandeep Lundberg MD Primary Care Provider [phone] Social History Tobacco UseTypesPacks/DayYears UsedDateSmoking Tobacco: Never Assessed CommentsUnknownSex and Gender InformationValueDate RecordedSex Assigned at Not on fileLegal RnkJjcwbc14/28/2024 1:33 PM EDTGender IdentityNot on fileSexual OrientationNot on file Plan of Treatment Health MaintenanceDue DateLast DoneCommentsDepression Raogeehtm11/23/1979Tobacco Dhyyaszfj86/23/1979Adult BMI Jzhfbsgoq18/23/1985DTaP,Tdap and Td Vaccines (1 - Tdap)1986Pap Smear01/06/1988Zoster (Shingles) Vaccine (1 of 2)2017 Influenza Hhanoib2803/16/2025 Medical Devices Not on file Insurance Care Teams Team MemberRelationshipSpecialtyStart DateEnd Date Sandeep Lundberg MD [address] [place] [address] [facility] Xmdfvdlf94/28/24
--- OUTSIDE RECORDS SUMMARY | 2025-05-13 09:50 | XMS_ITS | Clinical Summary ---
Author Organization [facility] Address [address] [place] [address] Care Team Providers Care Grappler Name Role Phone Sandeep Lundberg MD Primary Care Provider [phone] Allergies Active AllergyReactionsCriticalityNoted XvdvMphmvxggZyagkkbmojgVmnxWvm81/06/2023 Medications MedicationSigDispense QuantityRefillsLast FilledStart DateEnd DateStatus levothyroxine (Synthroid, Levoxyl) 125 MCG tablet Take 125 mcg by mouth in the morning.05/11/2023ctive lisinopril 10 MG tablet Take 10 mg by mouth in the morning.05/11/2023ctive Pwdlwjmnfbn-Tmhowcmrr-Sdpncc (Trelegy Ellipta) 100-62.5-25 MCG/ACT aerosol powder Indications:WheezeInhale 1 puff Daily 1 each /5Active modafinil (Provigil) 200 MG tablet Indications:HypersomniaTake 1 tablet (200 mg) by mouth Daily 30 tablet ctive FLUoxetine (PROzac) 10 MG capsule Indications:Weight gainTAKE 1 CAPSULE BY MOUTH EVERY DAY 90 capsule 5Active Active Problems No known active problems Encounters DateTypeDepartmentCare YwptMuamdyweepx15/28/2025Refill [facility] [address] [address] Kadeem Robertson DO Weight gain03/10/2025Telephone [facility] [address] [address] Kadeem Robertson DO from Last 3 Months Social History Tobacco UseTypesPacks/DayYears UsedDateSmoking Tobacco: Never Tobacco Cessation:Counseling Given: Not Answered CommentsNoSex and Gender InformationValueDate RecordedSex Assigned at TyukrBeunyp42/08/2023 3:53 PM ESTLegal SgoVveluc88/15/2023 8:13 PM EDTGender KdznjcieAfoanl71/08/2023 3:53 PM ESTSexual RnugzbvxdgtStlveifk35/08/2023 3:53 PM EST Last Filed Vital Signs Vital SignReadingTime TakenCommentsBlood Amqlamni569/8404/16/2024 9:35 AM EDT Hvokw692404/16/2024 9:35 AM EDTTemperature--Respiratory Rate--Oxygen Okwkoosbxj95% 04/16/2024 9:35 AM EDTInhaled Oxygen Concentration--Bkvjyj28.6 kg (160 lb) 06/09/2024 2:23 PM HBBXyimhx938.6 cm (5' 6 )06/09/2024 2:23 PM ESTBody Mass Index25.8206/09/2024 2:23 PM EST Plan of Treatment DateTypeDepartmentCare Team (Latest Contact Info)Uhocclwymdt43/18/2025 11:00 AM ESTProcedure Visit [facility] [address] [address] Jennifer Jennings PA [address] [address] Health MaintenanceDue DateLast DoneCommentsCT Mzvwrjprdcsg1967Colonoscopy 1967Colorectal Cancer Ovmwfzzce1967FIT-DNA1967FIT1967 FOBT1967 5331Eovdemrsfbfyf1967Pap Smear01/06/1988Cervical Cancer Jdawsttgy84/23/1997HPV/Cemvav2501/05/19970255Nsxudhzkp31/15/13900308/30/2022Influenza Vaccine (#1)2025 Procedures Procedure NamePriorityDate/TimeAssociated DiagnosisCommentsMM TOMOSYNTHESIS SCREENING BI06/29/2023 8:13 AM EST from Last 3 Months or Most Recently Relevant to Health Maintenance Results * MM TOMOSYNTHESIS SCREENING BI (06/29/2023 8:13 AM EST)Anatomical Region LateralityModalityOtherSpecimen (Source)Anatomical Location / Laterality Collection Method / VolumeCollection TimeReceived Time06/29/2023 8:13 AM EST Narrative 06/29/2023 8:14 AM EST [facility] ?[address] ? [place], [facility] ? Mammography Report ? Signed ? Patient: LEIDA LAIRD ?MR#: [id number] ?? : 1965 ?Acct:[id number] ?? Age/Sex: 58 / F ?ADM Date: // ?? Loc: MAMMO ? Attending Dr: Jennifer Jennings ? Ordering Physician: Jennifer Jennings ?Results: ? Date of Service: // ?Follow Up: ? Procedure(s): MM tomosynthesis screening BI ?? Accession Number(s): [id number] ? cc: Jennifer Jennings; Sandeep Lundberg M.D. ? Patient Name: ? LEIDA LAIRD ? MR#: [id number] ? : 1965 ? Exam Date: 06/27/2023 [...] at age ??50. ? LOCATION: ? [facility] ? BREAST COMPOSITION: ? Heterogeneously dense,which may [...] SHOULD BE BIOPSIED. ? Dictated by: Kolton oMntenegro MD on 06/29/2023 at 08:11 ? Approved by: Kolton Montenegro MD on 06/29/2023 at 08:13 ? Dictated By: ?Kolton Montenegro M.D. ? Signed By: ?06/29/23 0814 ? DD/ 08 ? TD/TT: ? Italian Teacher: Procedure Note Radiology, Radiologist, MD - 06/29/[address] [address] Mammography Report Signed Patient: LEIDA LAIRD CHRISTIAN#: [id number] : 1965Acct:[id number] Age/Sex: 58 / FADM Date: 06/27/23 Loc: MAMMO Attending Dr: Jennifer Jennings Ordering Physician: Jennifer JenningsResults: Date of Service: 06/27/23Follow Up: Procedure(s): MM tomosynthesis screening BI Accession Number(s): [id number] cc: Jennifer Jennings; Sandeep Lundberg M.D. Patient Name: LEIDA LAIRD MR#: [id number] : 1965 Exam Date: 06/27/2023 Ordering Doctor: [...] breast cancer at age 50. LOCATION: [facility] BREAST COMPOSITION: Heterogeneously dense,which may obscure smallmasses. [...] LUMP SHOULD BE BIOPSIED. Dictated by: Kolton Montenegor MD on 06/29/2023 at 08:11 Approved by: Kolton Montenegro MD on 06/29/2023 at 08:13 Dictated By: Kolton Monteengro M.D. Signed By:06/29/23813 DD/ 2 TD/TT: Italian Teacher: Authorizing ProviderResult TypeResult StatusAmy Dick PACLINISYNC IMAGINGFinal Result from Last 3 Months or Most Recently Relevant to Health Maintenance Insurance Care Teams Team MemberRelationshipSpecialtyStart DateEnd Date Sandeep Lundberg MD [facility] Wkvtbtrm43/9/23
--- OUTSIDE RECORDS SUMMARY | 2025-05-13 09:50 | XMS_ITS | Clinical Summary ---
Author Organization [facility] Address [address] [place] [address] Care Team Providers Care Stockkeeper Name Role Phone Sandeep Lundberg MD Unavailable [phone] Sandeep Lundberg MD Primary Care Provider [phone] Allergies Active AllergyReactionsCriticalityNoted DateCommentsCodeineOther: See Comments, ElwlIcs7508/07/2023enicillinsAnaphylaxis,DgveKiu6105/21/2023 Medications MedicationSigDispense QuantityRefillsLast FilledStart DateEnd DateStatus albuterol HFA (VENTOLIN HFA) 90 mcg/actuation inhaler Inhale 2 Puffs as instructed every 4 hours as needed.02/13/2024ctive FLUoxetine (PROZAC) 10 mg capsule Take 10 mg by mouth every morning.Active levothyroxine (SYNTHROID) 125 mcg tablet Take 1 tablet by mouth once daily.05/11/2023ctive lisinopril (ZESTRIL) 10 mg tablet Take 10 mg by mouth once daily.05/11/2023ctive modafinil (PROVIGIL) 200 mg tablet Take 200 mg by mouth once daily.Active mometasone-formoterol (DULERA) 100-5 mcg/actuation inhaler Indications:Severe persistent asthma without complication (HCC)Inhale 2 Puffs as instructed two times a day. 13 g 5Active Additional Information Patient not taking.Reason: Course of Therapy Completed, Reported on 10/16/2024 Active Problems ProblemNoted DateDiagnosed DxyvEzaxpzbmmqkx02/03/2025 Assessment & Plan (09/16/2024 7:49 AM EST): Assessment: stable and compliant with current medications Last 5 Encounter BP Readings: Date: BP: 09/16/2024 144/91 09/12/2024 120/70 08/12/2024 123/83 Olstqkgdaopszi50/03/2025 Assessment & Plan (09/16/2024 7:51 AM EST): Assessment: stable with current medication regimen Pure hypercholesterolemia, tagmlmmlbsx03/03/2025 Assessment & Plan (09/16/2024 7:49 AM EST): Assessment: lifestyle modifications encouraged Sleep apnea, wcuzyfwczcn25/03/2025 Assessment & Plan (09/16/2024 7:49 AM EST): Assessment: CPAP compliant Rnhbzugevnepub65/03/2025 Assessment & Plan (09/16/2024 7:50 AM EST): Assessment: presents for surgical intervention Mkloui6609/15/2024 Assessment & Plan (09/16/2024 7:52 AM EST): Assessment: stable and asymptomatic, uses inhalers. No [...] Had COVID infection 08/31/24, was treated at [facility]. Today she is asymptomatic, Lungs CTA, breathing unlabored Social History Tobacco UseTypesPacks/DayYears UsedDateSmoking Tobacco: NeverSmokeless Tobacco: Never Tobacco Cessation:Counseling Given: Not Answered Alcohol UseStandard Drinks/WeekCommentsNever0 (1 standard drink = 0.6 oz pure alcohol)Area Deprivation IndexAnswerDate RecordedNational Score (1-100), lower number is lower faco070108/12/2024State Score (1-10), lower number is lower risk6 08/12/2024Data from: https://www.neighborhoodatlas.medicine.[facility].edu/. Last address used for [address] [place] [address]CommentsNoSex and Gender InformationValueDate RecordedSex Assigned at BirthNot on fileLegal SexFemale 06/16/2012 8:27 AM ESTGender IdentityNot on fileSexual OrientationNot on file Last Filed Vital Signs Vital SignReadingTime TakenCommentsBlood Pvqvvlls914/6503 11:30 AM EDT Magvo069209/30/2024 11:30 AM RHFOwwdexnplpu23.3 ??C (97.3 ??F)09/30/2024 9:53 AM EDTRespiratory Bdiq734709/30/2024 11:16 AM EDTOxygen Phuaouvcvt918%09/30/2024 11:30 AM EDTInhaled Oxygen Concentration--Iykguc44 kg (169 lb 12.1 oz)09/16/2024 6:52 AM CPQPprumu557.1 cm (5' 5 )09/16/2024 6:52 AM ESTBody Mass Index28.25 09/16/2024 6:52 AM EST Plan of Treatment Health MaintenanceDue DateLast DoneCommentsAnnual PCP Team Chronic Disease Visit 1985Anxiety Wbkunjoba54/23/1985Depression Djgfighkg10/23/1985HIV Screening 1985Hepatitis C Kvytvqjya80/23/1985Hepatitis B Vaccine (1 of 3 - 19+ 3- dose series)1986Cervical Cancer Cizbxfowt67/23/1988Mammogram Screening 2007CT Aojfoynflulc31/23/2012Cologuard (FIT-DNA)01/06/2012Colonoscopy 01/06/2012Colorectal Cancer Oqohdzlps81/23/2012Fecal Occult Blood01/06/2012Lipid Jedabeqjj04/23/8811Uovfulwmatsrl99/23/2012Pneumococcal Vaccine: 50+ (1 of 1 - PCV)2017Shingrix Vaccine (1 of 2)2017Covid-19 Vaccine (3 - 2024- season)509/, 03/08/2021Influenza Vaccine (#1)2025Diabetes Urspccoba68/23/9193344DTaP,Tdap,Td Vaccine (2 - Td or Tdap)08/19/2034 08/19/2024 Insurance Care Teams Team MemberRelationshipSpecialtyStart DateEnd Sandeep Lundberg MD [address] [place] [address] PCP - GeneralFamily Medicine09/19/24 Sandeep Lundberg MD [address] [place] [address] ReferringFamily Medicine08/06/24
--- OUTSIDE RECORDS SUMMARY | 2025-05-13 09:50 | XMS_ITS | Clinical Summary ---
Author Organization [facility] Address [address] [place] [address] Phone Care Team Providers Care Field Sales Manager Name Role Phone Sandeep Lundberg MD Primary Care Provider [phone] Allergies Active AllergyReactionsCriticalityNoted VzgvGwppawyqTnvbmeftkaaWvdaByr72/06/2023 BwzuvlyMilfcszIyq75/23/2024 Medications No known medications Social History Tobacco UseTypesPacks/DayYears UsedDateSmoking Tobacco: Never Assessed CommentsUnknownSex and Gender InformationValueDate RecordedSex Assigned at Not on fileLegal MarLtsgur28/25/2022 12:01 PM ESTGender IdentityNot on file Sexual OrientationNot on file Last Filed Vital Signs Vital SignReadingTime TakenCommentsBlood Fqgdodpz404/9401 10:27 AM EST Ohpnn441808/07/2023 10:27 AM GSRIeqpqqaxakq02.7 ??C (98.1 ??F)08/07/2023 8:01 AM ESTRespiratory Uypb082508/07/2023 8:01 AM ESTOxygen Wvggzsxuxf21%08/07/2023 10:27 AM ESTInhaled Oxygen Concentration--Bxevdm53.6 kg (180 lb)08/07/2023 8:01 AM EST Rygrkj979.6 cm (5' 6 )08/07/2023 8:01 AM ESTBody Mass Index29.05008/07/2023 8:01 AM EST Plan of Treatment Health MaintenanceDue DateLast DoneCommentsCT Ftpdofjenxgq1967Colonoscopy 1967Colorectal Cancer Plpmznaoz1967FIT-DNA (Cologuard)1967FIT 1967HIV Jgbtardow1967Lipid Panel1967 1408Gdeohgblvbvpa1967MMR Vaccines (1 of 1 - Standard series)01/06/1968Hepatitis C Espwgvdyu49/23/1985 Hepatitis B Vaccines (1 of 3 - 19+ 3-dose series)1986Cervical Cancer Xxlszexja16/23/1988HPV/Cxzegz7301/06/1988Pap Smear01/06/1988DTaP/Tdap/Td Vaccines (1 - Tdap)01/05/19891464Hdiitzgsq26/23/2007Pneumococcal Vaccine (1 of 1 - PCV) 2017Zoster Vaccines (1 of 2)2017Yearly Adult Qjalvaza31/10/2024 05/24/2023Influenza Vaccine (#1)5COVID-19 Vaccine (3 - season) 509/, 1Diabetes Xksbixyiw31/23/38190408/07/2023HIB VaccinesAged OutNo longer eligible based on patient's [...] this topic Procedures Procedure NamePriorityDate/TimeAssociated DiagnosisCommentsCOMPREHENSIVE METABOLIC ALTRRKLMF16/23/2024 8:29 AM EST from Last 3 Months or Most Recently Relevant to Health Maintenance Results * (ABNORMAL) Comprehensive metabolic panel (08/07/2023 8:29 AM EST)Component ValueRef RangeTest MethodAnalysis TimePerformed AtPathologist SignatureGlucose 108(H)74 - 99 mg/dL LAB CHEMISTRY METHOD 08/07/2023 9:00 AM [facility] WBQMrsvka793974 - 145 mmol/L LAB CHEMISTRY METHOD 08/07/2023 9:00 [facility] LABPotassium3.83.5 - 5.3 mmol/L LAB CHEMISTRY METHOD 08/07/2023 9:00 [facility] FKBQwmjpmlf89752 - 107 mmol/L LAB CHEMISTRY METHOD 08/07/2023 9:00 [facility] YYQBcxdbgxxncm3880 - 32 mmol/L LAB CHEMISTRY METHOD 08/07/2023 9:00 [facility] LABAnion Bbw6200 - 20 mmol/L LAB CHEMISTRY METHOD 08/07/2023 9:00 [facility] LABUrea Imwczzjd114 - 23 mg/dL LAB CHEMISTRY METHOD 08/07/2023 9:00 [facility] LABCreatinine0.750.50 - 1.05 mg/dL LAB CHEMISTRY METHOD 08/07/2023 9:00 [facility] LABeGFR>90>60 mL/min/1.73m*2 LAB CHEMISTRY METHOD 08/07/2023 9:00 AM [facility] LABComment: Calculations of estimated GFR are performed using the 2020 CKD-EPI Study Refit equation without therace variable for the IDMS-Traceable creatinine methods. https://jasn.asnjournals.org/content///ASN.3295896415 Calcium9.48.6 - 10.3 mg/dL LAB CHEMISTRY METHOD 08/07/2023 9:00 [facility] LABAlbumin4.73.4 - 5.0 g/dL LAB CHEMISTRY METHOD 08/07/2023 9:00 [facility] LABAlkaline Naiwczkvgai5082 - 110 U/L LAB CHEMISTRY METHOD 08/07/2023 9:00 [facility] LABTotal Protein7.86.4 - 8.2 g/dL LAB CHEMISTRY METHOD 08/07/2023 9:00 [facility] NKFGNQ635 - 39 U/L LAB CHEMISTRY METHOD 08/07/2023 9:00 [facility] LABBilirubin, Total0.50.0 - 1.2 mg/dL LAB CHEMISTRY METHOD 08/07/2023 9:00 [facility] DFEKLX938 - 45 U/L LAB CHEMISTRY METHOD 08/07/2023 9:00 AM ESTSSWE[facility] LABComment:Patients treated with Sulfasalazine may generate falsely decreased results for ALT.Specimen (Source) Anatomical Location / LateralityCollection Method / VolumeCollection Time Received TimeBloodVenous blood specimen / UnknownVenipuncture / Unknown 08/07/2023 8:29 AM EST08/07/2023 8:34 AM EST Narrative Authorizing ProviderResult TypeResult StatusAngela C Sales DOLAB BLOOD ORDERABLESFinal ResultPerforming OrganizationAddressCity/State/ZIP CodePhone Number [facility] [address] [place] [phone] from Last 3 Months or Most Recently Relevant to Health Maintenance Insurance * Guarantor: Leida Rodriguez TypeRelation to PatientDate of BirthPhone Billing AddressPersonal/FvstpaEouo1965 [address] [address] * Guarantor: Leida Rodriguez TypeRelation to PatientDate of BirthPhone Billing AddressPersonal/RvzqndYter1965 [address] [address] * Guarantor: Leida Rodriguez TypeRelation to PatientDate of BirthPhone Billing AddressPersonal/ZgghoyJdhu[address] [address] Care Teams Team MemberRelationshipSpecialtyStart DateEnd Sandeep Lundberg MD [address] [facility] [place] [address] PCP - General09/06/09
--- OUTSIDE RECORDS SUMMARY | 2025-05-13 09:51 | XMS_ITS | Encounter Summary ---
Author Organization [facility] Address [address] [place] [address] Care Team Providers Care Supervisor Functional Testing Name Role Phone Sandeep Lundberg MD Primary Care Provider [phone] Encounter Details DateTypeDepartmentCare Team (Latest Contact Info)Ddehsoecwqq87/15/2023Clinisync Result Encounter [facility] External Department Unsolicited Jennifer Jennings PA [address] [place], [place] [phone] Social History Tobacco UseTypesPacks/DayYears UsedDateSmoking Tobacco: NeverCommentsNo Sex and Gender InformationValueDate RecordedSex Assigned at BirthFemale 05/23/2023 3:53 PM ESTLegal XswYkzjfe65/15/2023 8:13 PM EDTGender IdentityFemale 05/23/2023 3:53 PM ESTSexual MqebfijnlnwZoapjvhd74/08/2023 3:53 PM ESTdocumented as of this encounter Plan of Treatment DateTypeDepartmentCare Team (Latest Contact Info)Pcujoilsjek27/18/2025 11:00 AM ESTProcedure Visit [facility] [address] [phone] Jennifer Jennings PA [address] [place], [place] [phone] documented as of this encounter Procedures Procedure NamePriorityDate/TimeAssociated DiagnosisCommentsMM TOMOSYNTHESIS SCREENING BI06/29/2023 8:13 AM EST documented in this encounter Results * MM TOMOSYNTHESIS SCREENING (06/29/2023 8:13 AM EST)Anatomical Region LateralityModalityOtherSpecimen (Source)Anatomical Location / Laterality Collection Method / VolumeCollection TimeReceived Time06/29/2023 8:13 AM EST Narrative 06/29/2023 8:14 AM EST [facility] ?[address] ? [place] [address] ? Mammography Report ? Signed ? Patient: PRAVEENA LAIRD ?MR#: [id number] ?? : 1965 ?Acct:[id number] ?? Age/Sex: 58 / F ?ADM Date: 06/27/23 ?? Loc: MAMMO ? Attending Dr: Jennifer Jennings ? Ordering Physician: Jennifer Jennings ?Results: ? Date of Service: 06/27/23 ?Follow Up: ? Procedure(s): MM tomosynthesis screening BI ?? Accession Number(s): [id number] ? cc: Jennifer Jennings; Sandeep Lundberg M.D. ? Patient Name: ? PRAVEENA LAIRD ? MR#: [id number] ? : 1965 ? Exam Date: 06/27/2023 [...] at age ??50. ? LOCATION: ? [facility] ? BREAST COMPOSITION: ? Heterogeneously dense,which [...] ?06/29/23813 ? DD/ 2 ? TD/TT: ? Snow Ranger: Procedure Note Radiology, Radiologist, MD - 06/29/2023 [place] [address] Mammography Report Signed Patient: PRAVEENA LAIRD JMR#: [id number] : 1965Acct:[id number] Age/Sex: 58 / FADM Date: 06/27/23 Loc: MAMMO Attending Dr: Jennifer Jennings Ordering Physician: Jennifer Keyults: Date of Service: 06/27/23Follow Up: Procedure(s): MM tomosynthesis screening BI Accession Number(s): [id number] cc: Jennifer Jennings; Sandeep Lundberg M.D. Patient Name: PRAVEENA LAIRD MR#: [id number] : 1965 Exam Date: 06/27/2023 Ordering Doctor: [...] breast cancer at age 50. LOCATION: [facility] BREAST COMPOSITION: Heterogeneously dense,which may obscure [...] Montenegro M.D. Signed By:06/29/23813 DD/ 2 TD/TT: Snow Ranger: Authorizing ProviderResult TypeResult StatusJennifer Dick PACLRUSSELLVILLE HOSPITALYNC IMAGINGFinal Result documented in this encounter Visit Diagnoses Not on filedocumented in this encounter Care Teams Team MemberRelationshipSpecialtyStart DateEnd Date Sandeep Lundberg MD PCP - GeneralFamily Kizahbhj76/9/23documented as of this encounter
--- OUTSIDE RECORDS SUMMARY | 2025-05-13 09:51 | XMS_ITS | Encounter Summary ---
Author Organization [facility] Address [address] [place] [address] Care Team Providers Care Addiction Social Worker Name Role Phone Sandeep Lundberg MD Primary Care Provider [phone] Encounter Details DateTypeDepartmentCare Team (Latest Contact Info)Pnifnehzjmu30/13/2023Clinisync Result Encounter [facility] External Department Unsolicited Jennifer Wiseman PA [address] [place], [place] [phone] Social History Tobacco UseTypesPacks/DayYears UsedDateSmoking Tobacco: NeverCommentsNo Sex and Gender InformationValueDate RecordedSex Assigned at BirthFemale 05/23/2023 3:53 PM ESTLegal YplJjbwlm20/15/2023 8:13 PM EDTGender IdentityFemale 05/23/2023 3:53 PM ESTSexual UczpnuwbojlMrshiprs05/08/2023 3:53 PM ESTdocumented as of this encounter Plan of Treatment DateTypeDepartmentCare Team (Latest Contact Info)Bhlerawiocm78/18/2025 11:00 AM ESTProcedure Visit [facility] [address] [place] [phone] Jennfier Wiseman PA [address] [place], [place] [phone] documented as of this encounter Procedures Procedure NamePriorityDate/TimeAssociated DiagnosisCommentsXR DEXA AXIAL WAEIFRRV52/13/2023 3:49 PM EST documented in this encounter Results * XR DEXA AXIAL SKELETON (06/27/2023 3:49 PM EST)Anatomical RegionLaterality ModalityOtherSpecimen (Source)Anatomical Location / LateralityCollection Method / VolumeCollection TimeReceived Time06/27/2023 3:49 PM EST Narrative 06/27/2023 3:52 PM EST [facility] ?[address] ? [place] [address] ?XRay Report ? Signed ? Patient: PRAVEENA LAIRD ?MR#: [id number] ?? : 1965 ?Acct:[id number] ?? Age/Sex: 58 / F ?ADM Date: 06/27/23 ?? Loc: MAMMO ? Attending Dr: Jennifer Wiseman ? Ordering Physician: Jennifer Wiseman ?? Date of Service: 06/27/23 ?? Procedure(s): XR DEXA axial skeleton ?? Accession Number(s): [id number] ? cc: Jennifer Wiseman; Sandeep Lundberg M.D. ? [facility] ? [address] ? [place] [address] ? Patient Name: ?? PRAVEENA LAIRD ? MRN: [facility]:[id number] ? date: 1965 ?Sex: F ?? Assigned Patient Location: MAMMO ?? Current Patient Location: MAMMO ?? Accession/Order Number: [id number] ?? Exam Date: 06/27/2023 ??14:15 ?Report Date: 06/27/2023 ??15:49 ? At the request of: ?? JENNIFER ??BOWEN ? Procedure: ??XR DEXA axial skeleton ? EXAMINATION: XR DEXA axial skeleton ? HISTORY: post menopausal state ? COMPARISON: No relevant comparison available. ? TECHNIQUE: Dual-energy X-ray absorptiometry (DXA) was performed. ? FINDINGS: ?? SPINE ANALYSIS: ?? Average bone mineral density is 1.0 x 3 g/cm2. ?? T-score (standard deviation relative to young adult mean): -1.1 . ? HIP ANALYSIS: ?? Lowest bone mineral density is within the left femoral neck, 0.89 g/cm2. ?? T-score (standard deviation relative to young adult mean): -1.5 . ? XR/XR DEXA axial skeleton ?? IMPRESSION: ? [employer] Classification: Osteopenia - Moderate Fracture Risk ? Electronically authenticated by: PHILIP ??ZAY ?? Date: 06/27/2023 ??15:49 ? Dictated By: ?Philip Taylor M.D. ? Signed By: ?06/27/23 1552 ? DD/ 1549 ? TD/TT: ? Workforce Management Manager: Procedure Note Radiology, Radiologist, MD - 06/27/2023 [place] [address] XRay Report Signed Patient: PRAVEENA LAIRD JMR#: [id number] : 1965Acct:[id number] Age/Sex: 58 / FADM Date: 06/27/23 Loc: MAMMO Attending Dr: Jennifer Wiseman Ordering Physician: Jennifer Wiseman Date of Service: 06/27/23 Procedure(s): XR DEXA axial skeleton Accession Number(s): [id number] cc: Jennifer Wiseman; Sandeep Lundberg M.D. The [place] [phone] Patient Name: PRAVEENA LAIRD MRN: [facility]:[id number] date: 1965 Sex: F Assigned Patient Location: [facility] Current Patient Location: [facility] Accession/Order Number: [id number] Exam Date: 06/27/2023 14:15 Report Date: 06/27/2023 15:49 At the request of: JENNIFER WISEMAN Procedure: XR DEXA axial skeleton EXAMINATION: XR DEXA axial skeleton HISTORY: post menopausal state COMPARISON: No relevant comparison available. TECHNIQUE: Dual-energy X-ray absorptiometry (DXA) was performed. FINDINGS: SPINE ANALYSIS: Average bone mineral density is 1.0 x 3 g/cm2. T-score (standard deviation relative to young adult mean): -1.1 . HIP ANALYSIS: Lowest bone mineral density is within the left femoral neck, 0.89 g/cm2. T-score (standard deviation relative to young adult mean): -1.5 . XR/XR DEXA axial skeleton IMPRESSION: World [employer] Classification: Osteopenia - Moderate FractureRisk Electronically authenticated by: PHILIP TAYLOR Date: 06/27/2023 15:49 Dictated By: Philip Taylor M.D. Signed By:06/27/23 1552 DD/ 1549 TD/TT: Workforce Management Manager: Authorizing ProviderResult TypeResult StatusAmy Laurens PACLINISYNC IMAGINGFinal Result documented in this encounter Visit Diagnoses Not on filedocumented in this encounter Care Teams Team MemberRelationshipSpecialtyStart DateEnd Date Sandeep Lundberg MD PCP - GeneralFamily Piuemjha14/9/23documented as of this encounter
--- OUTSIDE RECORDS SUMMARY | 2025-05-13 09:54 | XMS_ITS | CCD ---
Author Organization [facility] Care Team Providers Care Horse Breeder Name Role Phone SAULO, DR CAMERON Primary [...] Rakesh Vernon MD Primary Care Provider [phone] RAKESH VERNON Primary Care Unavailable RAJ DENNISON Attending Unavailable Rakesh Vernon MD Primary Care Provider [phone] DAVE FRANCIS Attending Unavailable BREANN BRISCOE Attending Unavailable Kana Montilla Attending Unavailable Kana Montilla Admitting Unavailable Rakesh Vernon Primary Care Unavailable Rakesh Vernon MD Unavailable Rakesh Vernon MD Primary Care Provider [phone] aRkesh Vernon MD Primary Care Provider JONO GONZALEZ III Referring Unavailable MOON IIIJONO Attending Unavailable ELGIN PELAYO Attending Unavailable RAKESH VERNON Referring Unavailable MOON IIIJONO Attending Unavailable MOON IIIJONO Referring Unavailable RAKESH VERNON Primary Care Unavailable OMON III, SHARATH Admitting Unavailable JONO GONZALEZ III Attending Unavailable JONO GONZALEZ III Referring Unavailable Rakesh Vernon MD Primary Care Provider [phone] Rakesh Vernon MD Primary Care Provider [phone] Neelima Alvarado APRN Attending Provider Allergies Allergy ClassificationReported Allergen(s)Allergy TypeDate of OnsetReaction(s) Facility (4 sources)Codeine; Translations: [CODEINE]Drug Ycylaye34-10-1801CcgqxadcWhp [facility] Repository (1 source)diphenhydrAMINEDrug Kpvfktq41-19-8901[facility] (2 sources)ErythromycinDrug Ycigqrw40-40-9901DunohmPpl [facility] Repository (10 sources)Penicillins; Translations: [PENICILLINS]Drug allergy (disorder) 67-28-0842Pclesbmllvr, [facility] Repository (1 source)PenicillinDrug AllergyrasSt. [facility] Other (10 sources)Amoxicillin; Translations: [AMOXICILLIN]Drug Eerdjja38-28-6284[facility] (11 sources)CodeineDrug Uttffkh40-05-6791Wzsqlxk, Other: See Misti, Anila [facility] Work Phone: (1 source)CodeineDrug Idbkxfa18-75-7191GkrrjlaweFairfield Medical Center Repository (1 source)ErythromycinDrug Meiyxpu84-18-5894CrpirpkeaFairfield Medical Center Repository (1 source)PenicillinsDrug allergy (disorder)65-57-3520TtzmhenjaFairfield Medical Center Repository (2 sources)PenicillinsDrug Vtkummy75-92-1604Shgnxcpdrea, [facility] (1 source)PenicillinsDrug Owyjsnb38-75-6988Aqadmkeyxrc, [facility] Medications Current Medications MedicationDrug Class(es)DatesSig (Normalized)Sig (Original)acetaminophen 325 mg / HYDROcodone bitartrate 5 mg oral tablet (3 sources)Opioid AgonistStart: 09-30-2024 End: 75-87-8741snrk 1 tablet by mouth every six hours as needed for pain HYDROcodone-acetaminophen (NORCO) 5-325 mg per tablet Indications: Post-op pain Take 1 tablet by mouth every 6 hours as needed for pain for up to 3 days. 12 tablet 09/30/2024 10/03/2024 ActiveStart: 09-30-2024 End: tablet, ORAL, NEEDED, 1 dose, Starting on Sun09/30/24 at 1012, Until Sun09/30/24 at 1047, Moderate Pain (4-6) - Khnomcwipp540000 200 actuat albuterol 0.09 mg/actuat metered dose inhaler (11 sources)beta2-Adrenergic AgonistStart: 15-92-3653kwnq 2 puff(s) by inhalation every four hours as neededalbuterol HFA (VENTOLIN HFA) 90 mcg/actuation inhaler Inhale 2 Puffs as instructed every 4 hours asneeded. 02/13/2024 ActiveStart: 06-10-2020 End: 73-52-6028ntws 1 puff(s) by inhalation every four hours as neededAlbuterol Sulfate 90 mcg/actuation HFA aerosol inhaler Discontinued 1 - 2 PUFF INHALATION Q4H as needed for Shortness Of Breath June 10, 2020 1:00am June 04, 2024 8:43amcyclobenzaprine hydrochloride 10 mg oral tablet (1 source)Muscle RelaxantStart: 00-55-5234rggk 1 tablet by mouth every eight hours as needed for painCyclobenzaprine HCl 10 MG 1 tablet Orally every 8 hours prn back pain for 5 days Dec, ActiveFLUoxetine 10 mg oral capsule (20 sources)Serotonin Reuptake InhibitorStart: 59-79-1060fviu 1 capsule by mouth once dailyFluoxetine 10 mg capsule Active 10 MG PO Daily June 04, 2024 1:00am FreeTextSig: Oral; Note: Source Status: Taking; Qty: 90 Capsule; Provider: Ginna Kirby ( ) Complies with drug ypbdyju69 actuat fluticasone furoate 0.1 mg/actuat / umeclidinium 0.0625 mg/actuat / vilanterol 0.025 mg/actuat dry powder inhaler (4 sources)Anticholinergic, Corticosteroid, beta2-Adrenergic AgonistStart: 06-09-2024 End: 16-40-8027ggra 1 puff(s) by inhalation once daily Fjzdodrqjnk-Mdtrywoqj-Gcuzjq (Trelegy Ellipta) 100-62.5-25 MCG/ACT aerosol powder Indications: Wheeze Inhale 1 puff Daily 1 each 06/09/2024 06/09/2025 Sixtef38 actuat formoterol fumarate 0.005 mg/actuat / mometasone furoate 0.1 mg/actuat metered dose inhaler (10 sources)Corticosteroid, beta2-Adrenergic AgonistStart: 08-12-2024 End: 07-97-4538kzik 2 puff(s) by inhalation twice dailymometasone-formoterol (DULERA) 100-5 mcg/actuation inhaler Indications: Severe persistent asthma wit hout complication (HCC) Inhale 2 Puffs as instructed two times a day. 13 g 2 08/12/2024 11/10/2024 Activelevothyroxine sodium 0.125 mg oral tablet (20 sources)l-ThyroxineStart: 46-14-5026skwd 1 tablet by mouth once daily Levothyroxine 125 mcg tablet Active 125 MCG PO Daily February 18, 2025 12:00am Complies with drug therapyStart: 29-29-9523ittj 1 tablet by mouth once daily levothyroxine (SYNTHROID) 125 mcg tablet Take 1 tablet by mouth once daily. 05/11/2023 ActiveStart: 06-10-2020 End: 31-68-6885abtd 1 tablet by mouth once dailyLevothyroxine 150 mcg tablet Discontinued 150 MCG PO Daily June 10, 2020 1:00am February 18, 2025 10:24amLevothyroxine Sodium 125 MCG Oral for 90 Days Activelisinopril 10 mg oral tablet (20 sources)Angiotensin Converting Enzyme InhibitorStart: 93-32-5915rgzu 1 tablet by mouth once dailyLisinopril 10 mg tablet Active 10 MG PO Daily June 04, 2024 1:00am FreeTextSig: Oral; Note: Source Status: Taking; Qty: 90 Tablet; Provider: Ginna Kirby ( ) Complies with drug therapy Lisinopril 10 MG Oral for 90 Days Activemodafinil 200 mg oral tablet (20 sources)Sympathomimetic-like AgentStart: 12-31-2024 End: 32-98-8692bcmr 1 tablet by mouth once daily in the morningModafinil 200 mg tablet Active 200 MG PO Daily 30 30 February 18, 2025 11:45am FreeTextSig: TAKE 1 TABLET BY MOUTH IN THE MORNING daily Oral; Note: Source Status: Taking; Refills: 1; Qty: 30 Each; Provider: PENNY ACOSTA Complies with drug therapy Start: 64-07-9340yeqw 1 tablet by mouth once dailymodafinil (Provigil) 200 MG tablet Indications: Hypersomnia Take 1 tablet (200 mg) by mouth Daily 30 tablet 2 07/02/2024 ActiveStart: 04-19-2023 End: 77-91-8272jwdb 1 tablet by mouth once daily in the morningModafinil 200 mg tablet Discontinued 200 MG PO Daily June 04, 2024 1:00am December 31, 2024 4:01pm FreeTextSig: TAKE 1 TABLET BY MOUTH IN THE MORNING daily Oral; Note: Source Status: Taking; Refills: 1; Qty: 30 Each; Provider: PENNY ACOSTA Completed/Discontinued Medications MedicationDrug Class(es)DatesSig (Normalized)Sig (Original)acetaminophen 325 mg oral tablet (2 sources)Start: 09-30-2024 End: 25-13-5360196 mg, ORAL, NEEDED, 1 dose, Starting on Sun09/30/24 at 1012, Until Sun10/01/24 at 0303, Mild Pain (1-3) - Enteral, If ordered PRN for pain, patient/guardian may elect to receive this medication for higher pain levels INSTEAD of the opioid, if preferred: YesStart: 09-30-2024 End: 51,000 mg, ORAL, DIRECTED, Starting on Sun09/30/24 at 0800, Until Sun09/30/24 at 0959, pre o[ med, OtlyomazuuagYjh6790-Dgi Bby-Ofvc-Evo-Asb-C (1 source)Osmotic Laxative, Vitamin CStart: 05-21-2024 End: 23-74-0359Vzi0292-Sod Jxd-Pmfi-Ikd-Asb-C (Plenvu) 140-9-5.2 gram powder in packet, sequential Discontinued 140 ML PO .COMPLEX 1 May 21, 2024 1:00am February 18, 2025 10:24am First does at 4pm the day before the colonoscopy; second dose at 11pm the night before the colonoscopy.calcium chloride 0.0014 meq/ml / potassium chloride 0.004 meq/ml / sodium chloride 0.103 meq/ml / sodium lactate 0.028 meq/ml injectable solution (2 sources)Start: 09-30-2024 End: 91-02-7974phuq 30 mL intravenously every hour30 mL/hr, INTRAVENOUS, CONTINUOUS, Starting on Sun09/30/24 at 1030, Until Sun10/01/24 at 0303codeine phosphate 2 mg/ml / promethazine hydrochloride 1.25 mg/ml oral solution (1 source)Opioid Agonist, PhenothiazineStart: 06-10-2020 End: 55-08-1127wcwj 1 mL by mouth every six hours as needed for cough Promethazine-Codeine 6.25-10 mg/5 mL syrup Discontinued 10 ML PO Q6H as needed for cough 120 4 June 10, 2020 1:00am June 04, 2024 8:44am diphenhydrAMINE (1 source)Histamine-1 Receptor AntagonistStart: 09-30-2024 End: 50-07-651258 mg, INTRAVENOUS, NEEDED, 1 dose, Starting on Sun09/30/24 at 1012, Until Sun10/01/24 at 0303, Nausea/Vomiting - Second Line - Parenteral1 ml fentaNYL 0.05 mg/ml injection (2 sources)Opioid AgonistStart: 09-30-2024 End: 24-75-694985 mcg, INTRAVENOUS, NEEDED, Starting on Sun09/30/24 at 1012, Until Sun10/01/24 at 0303, FIRST LINE THERAPY for moderate or severe pain, FIRST LINE THERAPY Every5-10 minutes, To a Maximum Total Dose of 250 mcg Hold for respiratory rate less than 10 USE FOR MODERATE PAIN ONLY IF PATIENT IS UNABLETO TOLERATE ORAL THERAPYStart: 08-07-2023 End: 25-70-0703yqxwhNBE PF (Sublimaze) injection 50 mcghydroCHLOROthiazide 25 mg oral tablet (1 source)Thiazide DiureticStart: 06-10-2020 End: 55-58-6649zenr 1 tablet by mouth once dailyHydrochlorothiazide 25 mg tablet Discontinued 25 MG PO Daily June 10, 2020 1:00am June 04, 2024 8:44amKetorolac Tromethamin (1 source)Start: 75-82-0368Cplhopmtq Tromethamin Dec, 60 mglevoFLOXacin 750 mg oral tablet (1 source)Quinolone AntimicrobialStart: 06-10-2020 End: 46-72-8304kzug 1 tablet by mouth once dailyLevofloxacin 750 mg tablet Discontinued 750 MG PO Daily June 10, 2020 1:00am June 04, 2024 8:43am1 ml meperidine hydrochloride 50 mg/ml cartridge (1 source)Opioid AgonistStart: 09-30-2024 End: 35-20-652839.5 mg, INTRAVENOUS, EVERY 10 MINUTES NEEDED, 2 doses, Starting on Sun09/30/24 at 1012, Until Sun10/01/24 at 0303, for shivering, May Repeat 12.5 mg in 10 minutes X1 for Continued ShiveringpredniSONE 10 mg oral tablet (1 source)Start: 06-10-2020 End: 69-43-1899hiki 5 tablets by mouth once dailyPrednisone 10 mg tablet Discontinued 50 MG PO Daily June 10, 2020 1:00am June 04, 2024 8 :43am dose packpromethazine hydrochloride 12.5 mg oral tablet (1 source)PhenothiazineStart: 09-30-2024 End: 18-94-4360xeiz 1 dose by mouth once12.5 mg, ORAL, ONCE, 1 dose, On Sun09/30/24 at 0800, PreprocedureStart: 09-30-2024 End: 66-93-7435wwgm 1 dose by mouth once12.5 mg, ORAL, ONCE, 1 dose, On Sun09/30/24 at 0800, Preprocedure0.25 mg, 0.5 mg dose 1.5 ml semaglutide 1.34 mg/ml pen injector (5 sources) End: 22-98-5734ddndopkvikf (Ozempic) 2 MG/1.5ML solution pen-injector Inject under the skin 06/09/2024 DiscontinuedSemaglutide (1 source)Start: 02-18-2025 End: 37-10-7409zdqcvg 2 mg by subcutaneous injection every weekSemaglutide 2 mg/dose (8 mg/3 mL) pen injector Discontinued 2 MG SUBCUT every week February 182:00am February 18, 2025 11:24am Problems Active Problems Problem ClassificationProblemDateDocumented DateEpisodic/ChronicAsthma (9 sources)Uncomplicated severe persistent asthma; Translations: [Severe persistent asthma, uncomplicated]Onset: 903810-67-7671NhrqsimKeuzhhh tract disease (11 sources)Cholelithiasis without obstruction; Translations: [Calculus of gallbladder without cholecystitis without obstruction]Onset: 09-15-2024 10-22-4530PmdaamrgVxtrobdyn of lipid metabolism (8 sources)Hyperlipidemia, unspecified; Translations: [Pure hypercholesterolemia]Onset: 430209-93-3422SzpuesnGibrddhxg hypertension (8 sources)Hypertensive disorder; Translations: [Essential (primary) hypertension]Onset: 444470-66-7306EkvpmqhSlnyves and fatigue (1 source)Other fatigue; Translations: [OTHER FATIGUE]Onset: 90-39-8087Qlwiecao Nutritional deficiencies (1 source)Vitamin D deficiency, unspecified; Translations: [VITAMIN D DEFICIENCY UNSPECIFIED]Onset: 36-15-7078RqgzjhhNsjrt gastrointestinal disorders (1 source)Change in bowel habit; Translations: [Change in bowel habit]Onset: 56-13-7975RlzjhihpHqwjz injuries and conditions due to external causes (1 source)Closed injury of head; Translations: [Unspecified injury of head, initial encounter]51-33-2399RlovhfxgAyiqa lower respiratory disease (4 sources)Snoring; Translations: [Snoring]71-36-6222AnitmcsxDjvyv lower respiratory disease (2 sources)Wheezing; Translations: [Wheezing]80-14-9127FujevajqAnfad lower respiratory disease (1 source)Dyspnea; Translations: [Shortness of breath]56-33-5403BlohypzmWkdni nervous system disorders (1 source)Narcolepsy; Translations: [Narcolepsy without cataplexy]12-31-2024 ChronicOther nervous system disorders (1 source)Postoperative pain ; Translations: [Other acute postprocedural pain] 43-29-7702UvfdpedhIjuft upper respiratory disease (2 sources)Chronic rhinitis; Translations: [Chronic rhinitis]39-31-7436Nchloxb Other upper respiratory infections (2 sources)Recurrent sinusitis; Translations: [Chronic sinusitis, unspecified] 11-23-9851NyqmvkzWlsgrqkf codes; unclassified (4 sources)Hypersomnia; Translations: [Hypersomnia, unspecified]04-16-2024 ChronicResidual codes; unclassified (4 sources)Obstructive sleep apnea syndrome; Translations: [Obstructive sleep apnea (adult) (pediatric)]60-01-8215HcihbiaEucskfql codes; unclassified (7 sources)Sleep apnea; Translations: [Sleep apnea, unspecified]Onset: 849051-24-0964ZanodbyXguvqwrq codes; unclassified (2 sources)Daytime somnolence; Translations: [Other hypersomnia]02-18-2025 ChronicResidual codes; unclassified (2 sources)Amnesia; Translations: [Other amnesia]78-26-7174XdpmyoqmPudndwqy codes; unclassified (1 source)Postoperative state; Translations: [Other specified postprocedural states]17-89-3742GdgbghyvLlunusl and strains (1 source)Strain of muscle, fascia and tendon of lower back, initial encounter EpisodicThyroid disorders (8 sources)Hypothyroidism, unspecified; Translations: [Hypothyroidism]Onset: 477241-01-5749FyhmnybHiuhlxodbnll (3 sources)CONTACT W/AND (SUSP) EXPOS COVID-19; Translations: [CONTACT W/AND (SUSP) EXPOS COVID-19]Onset: 46-62-6483Ypfejculzttn (1 source)COUGH, UNSPECIFIED; Translations: [COUGH, UNSPECIFIED]Onset: 77-29-9960Jhnoo infection (1 source)Disease caused by 2019-nCoV; Translations: [COVID-19]06-10-2020 Episodic Past or Other Problems Problem ClassificationProblemDateDocumented DateEpisodic/ChronicE Codes: Fall (3 sources)Fall; Translations: [Unspecified fall, initial encounter]Onset: 840176-14-3094YqtchocoPuntmzlqlvbda and screening for infectious disease (1 source)Encounter for screening for human papillomavirus (HPV); Translations: [ENC SCREENING HUMAN PAPILLOMAVIRUS]Onset: 28-85-8202TsbwdfifCgcho circulatory disease (1 source)Other specified symptoms and signs involving the circulatory and respiratory systems; Translations:[OTH SPEC SX SIGNS INVLV CIRC RS]Onset: 40-35-7939KrjeyuftAtidd injuries and conditions due to external causes (2 sources)Unspecified injury of head, initial encounter; Translations: [Unspecified injury of head, initial encounter]Onset: 27-20-5780VfhofazhPvgnu screening for suspected conditions (not mental disorders or infectious disease) (4 sources)Encounter for screening for malignant neoplasm of cervix; Translations: [ENC SCREENING MALIG NEOPLASM CERV]Onset: 48-61-0180Wedcejhd Unclassified (1 source)CONTACT W/AND (SUSP) EXPOS COVID-19; Translations: [CONTACT W/AND (SUSP) EXPOS COVID-19]Onset: 01-04-2022 Results Test NameValueInterpretationReference RangeFacilityCNOVon 15-97-4522HLDFMismhw Visit (GENSAM) PRAVEENA DACOSTA ([id number]) 1965 F Date Time Provider Department 10/16/24 [...] III, MD Referring Provider: JONO GONZALEZ III [[id number]] Allergies As of Date: 10/16/2024 Noted Allergy [...] Encounter Status:Closed by JONO GONZALEZ III on [facility]/24[facility] 79-05-3981XSJKHklofjpaa (GENSAV) PRAVEENA DACOSTA ([id number]) 1965 F Date Time Provider Department 10/02/24 [...] 09/15/2024 Encounter Status:Closed by SHWETA HSU on 10/02/24[facility] EVALon 27-46-4980AZTY POSTPROC EVALHNO ID: [id number] Author: GALEN MOON MD Service: Anesthesiology Author Type: Anesthesiologist Type: Anesthesia Postprocedure Evaluation Filed: 09/30/2024 10:42 Note Text: POST ANESTHESIA EVALUATION NOTE : 1965 Procedure Summary Date: 09/30/24 Room / Location: [address] Anesthesia Start: 911 Anesthesia Stop: 958 [...] September 30, 2024 TIME: 10:41 AM CSN: [id number] [facility] PRE-OPon 83-44-1357YUMG PRE-OPHNO ID: [id number] Author: GALEN MOON MD Service: Anesthesiology Author Type: Anesthesiologist Type: Anesthesia Preprocedure Evaluation Filed: 09/30/2024 08:06 Note Text: ANESTHESIOLOGY DAY OF SURGERY NOTE : 1965 Procedure Information Date/Time: 09/30/2430 Procedure: LAPAROSCOPIC CHOLECYSTECTOMY WITH GRAMS (Gallbladder) Location: [place] [address] / [facility] Surgeons: Jnoo Gonzalez III, MD Estimated body mass index [...] and consent discussed: yes. Patient / Responsible Alliance Party agrees to proceed: yes Patient / Surrogate [...] September 30, 2024 TIME: 8:06 AM CSN: [id number] Memorial Hospital COMPLETEon 71-87-9225USO COMPLETEVentricular Rate : 56 BPM Atrial Rate : 56 BPM P-R Interval : 166 ms QRS Duration : 78 ms Q-T Interval : 446 ms QTC Calculation(Bazett) : 430 ms Calculated P [place] : 20 degrees Calculated R [place] : 46 degrees Calculated T [place] : 21 degrees SINUS BRADYCARDIA OTHERWISE NORMAL ECG Confirmed by JAMISON KEY DO ([id number]) on 10/05/2024 10:51:14 AM NAME : PRAVEENA DACOSTA PID : [id number] : 1965 Gender : Female Race : Unknown ORD : [id number] Procedure Date : Sep 30 2024 10:28:37 Edit Date : Oct 05 2024 10:51:15 Diagnosis: SINUS BRADYCARDIA OTHERWISE NORMAL ECG Confirmed by JAMISON KEY DO ([id number]) on 10/05/2024 10:51:14 AM Test Reason : Chest Pain Location : 145 : LOCARD [id number] Overread By : JAMISON KEY DO Edited By : JAMISON KEY DO Referred By : JONO GONZALEZ III Acquired by : Logan lópezOhioHealth [facility] PHYSICALon 09-30-2024 HISTORY PHYSICALHNO ID: [id number] Author: JONO GONZALEZ III, MD Service: General [...] [place] DATE: September 30, 2024 TIME: 8:39 AMNormalMercy HealthOPERATIVE NOon 38-46-6909BIXJYYNQA NOHNO ID: [id number] Author: JONO GONZALEZ III, MD Service: General Surgery Author Type: Physician Type: Operative Report Filed: 09/30/2024 09:46 Note Text: OPERATIVE REPORT LOG ID: [id number] SURGERY/PROCEDURE DATE: 09/30/2024 INCISION/PROCEDURE START TIME: 9:27 AM INCISION CLOSE/PROCEDURE END TIME: 9:44 AM SURGEON: Jono Gonzalez III, MD CYBER DEFENSE FORENSICS ANALYST: Yesenia Monson PA-C OPERATION: Laparoscopic cholecystectomy (65329). ANESTHESIA: GETA and 20 mL of 0.5% [...] [place] DATE: September 30, 2024 TIME: 9:45 AMNormalMercy HealthPathology biopsy report Bobo (Tiss) on 48-76-6095NR DISCLAIMERNormalCBluffton HospitalComment on above:Order Comment: Specimen Type: TISSUE SPECIMENOrdering Facility: [facility] Address: [address] [place], [place] [address]Bbzipw Comment: Laboratory Developed Test (LDT) Disclaimer: Performance characteristics of immunohistochemical, immunofluorescent, and chromogenic in-situ hybridization tests have been determined by the performing laboratory within [facility]'s Willy Dickson Pathology and Laboratory Medicine Department ([facility], [facility], [facility], [facility], [facility], [facility], or [facility]) in a manner consistent with CLIA requirements. One or more of these tests may not have been cleared or approved by the FDA. [facility] is regulated under CLIA as qualified to perform high- complexity testing. These tests are used for clinical purposes. These should not be regarded asinvestigational or for research. Positive and negative controls stain appropriately.Performed By: #### [id number] ####[facility] LABIA [id number] [place] [id number] [facility] MED[facility] CENTERCASE REPORTNoHighland District Hospital on above:Order Comment: Specimen Type: TISSUE SPECIMENOrdering Facility: [facility] Address: [address] [place], [place] [address]Result Comment: Surgical Pathology Report Case: [id number] Authorizing Provider: Jono Gonzalez III, MD Collected: 09/30/2024 09:31 AM Ordering Location: Ambulatory Surgery Received: 09/30/2024 10:52 AM Pathologist: Darcy Hernández MD, PhD Specimen: GallbladderPerformed By: #### [id number] ####[facility] HOSPITALIA [id number] [address]CLINICAL HISTORYNoHighland District Hospital on above:Order Comment: Specimen Type: TISSUE SPECIMENOrdering Facility: [facility] Address: [address] [place], [place] [address]Result Comment: Pre-op diagnosis: Calculus of gallbladder without cholecystitis without obstruction [K80.20] Performed By: #### [id number] ####[facility] LABIA [id number] [address] FINAL DIAGNOSISNoHighland District Hospital on above:Order Comment: Specimen Type: TISSUE SPECIMENOrdering Facility: [facility] Address: [address] [place], [place] [address]Result Comment: A. Gallbladder, cholecystectomy: - Chronic cholecystitis with cholelithiasis and cholesterolosis. at 1550 EDTPerformed By: #### [id number] ####[facility] LABCLIA [id number] [address] STATES OF [facility] HEALTH CENTERFINAL PERFORMING LAB NormalGlenbeigh Hospital on above:Order Comment: Specimen Type: TISSUE SPECIMENOrdering Facility: [facility] Address: [address] [place], [place] [address]Result Comment: Diagnostic interpretation performed at: [facility], [address] [place], [place] [address]k [place] [address] CLIA# [id number] Film Cleaner: MARYLIN Rodriguezerformed By: #### [id number] ####[facility] LABCLIA [id number] [address]GROSS DESCRIPTIONA. GallbladderNormalCAultman Hospital on above:Order Comment: Specimen Type: TISSUE SPECIMENOrdering Facility: [facility] Address: [address] [place], [place] [address]Result Comment: Received in formalin labeled gallbladder is [...] The cystic duct lumen is not obstructed. General Ledger Bookkeeper sections are submitted in one cassette. [facility] 09/30/24 5:34 PM Gross examination performed at [facility], [address] [place], [place] [address]Performed By: #### 06063-8 ####[facility] LABIA [id number] [place] [address] [place] HISTORY PHYSICALon 13-42-0558VAPXSQM PHYSICALHNO ID: [id number] Author: GEOVANY MORELAND APRN.BREASTFEEDING PEER COUNSELOR Service: ? Author Type: Nurse Practitioner Type: [...] Had COVID infection 08/31/24, was treated at [facility]. Today she is asymptomatic, Lungs CTA, [...] STOP-Bang Score: 0 (JANIS CPAP compliant ) [id number] Score: Age: <65 Sex: female CHF history: No Hypertension history: Yes Stroke/TIA/thromboembolism history: No Vascular disease history: No Diabetes history: No BPP4VY1-EJGd Score: 2 ARISCAT Score: Age: 51-80 Preoperative [...] fevers. Neuro: No history of TIA's, stroke, CUSTOMER SERVICE DISPATCHER tumor, impaired sensorium, hemiplegia, paraplegia or quadraplegia. No neurological symptoms or problems. Respiratory: Positive for JANIS CPAP compliant, asthma , Negative for Current cough, Pneumonia within 6 weeks (date) Cardiovascular: Positive for: HTN, HLD, Negative for CAD, Chest Pain, CHF, DVT/PE GI: Positive for Symptomatic cholelithiasis, Negative for Nausea, Vomiting, Abdominal pain, Difficulty swallowing : No (more content not included)...NormalMercy HealthCNPNon 16-49-0665BIRKAdddooydz (GENSAV) PRAVEENA DACOSTA ([id number]) 1965 F Date Time Provider Department 09/15/24 [...] obstruction [K80.20] Order(s):SURGICAL REQUEST - ELECTIVE (02/2020) [[id number]] Order #: [id number]: 1 Prescriptions as of 09/17/2024 - albuterol [...] Asthma [J45.909] 09/15/2024 Encounter Status:Closed by MARILOU ROEGR on 09/17/24[facility] [id number] Visit (GENSAV) PRAVEENA DACOSTA ([id number]) 1965 F Date Time Provider Department 09/12/24 [...] was discussed with the patient or authorized lead customer service representative. The patient or authorized lead customer service representative has agreed to proceed with the [...] Encounter Status:Closed by JONO GONZALEZ III on 09/12/24[facility] PHYSICALon [id number] PHYSICALHNO ID: [id number] Author: JONO GONZALEZ III, MD Service: ? [...] was discussed with the patient or authorized lead customer service representative. The patient or authorized lead customer service representative has agreed to proceed with the [...] III, MD cc: Referring provider Elgin Pelayo MDKindred Hospital LimaPNon [id number] (GENSAM) PRAVEENA DACOSTA ([id number]) 1965 F Date Time Provider Department 09/11/24 [...] (None) Encounter Status:Closed by SHWETA HSU on 09/11/24[facility] [id number] (PULMLO) PRAVEENA DACOSTA ([id number]) 1965 F Date Time Provider Department 08/14/24 ELGIN PELAYO PULMLO During your visit today, we recorded the following information about you: Mattie Link MA 08/14/2024 10:59 AM Signed Elgin Pelayo MD P Pul Nurse Could we try to obtain images of CT chest 02/13/2024 from [facility] in [facility]? Thanks Mattie Link MA 08/14/2024 11:49 AM Signed Faxed image request to [facility] Confirmation received Mattie Link MA 08/19/2024 8:52 AM Signed Image has been imported into [employer] and is available to view. Elgin Pelayo [...] (None) Encounter Status:Closed by MATTIE LINK on 08/19/24[facility] [id number] Visit (PULMLO) OLESYAPRAVEENA ([id number]) 1965 F Date Time Provider Department 08/12/24 1:00 PM ELGIN PELAYO PULMLO During your visit today, we recorded the following information about you: Pulse Blood pressure Weight 83/minute 123/83 77.2 kg Elgin Pelayo MD 08/14/2024 10:50 AM Signed . [facility] [place] - Pulmonology Clinic Initial Visit Note Ms. Dacosta is a 59 year old female who presents to the [facility] [place] Consultation requested by Rakesh Vernon MD for [...] getting sick again Evaluated for immunodeficiency by Tax Manager Cpa at [facility]. On 06/09/2024. [...] tobacco: Never Never smoker. Worked at a [employer] facility for 27 years. Works in the [...] personally reviewed by me Data Reviewed from [facility] (in addition to that noted in HPI, and Past histories above): (Data from patient's OSH mychart shown on phone) CBC: last eos 100 (05/2024) IgE: 45 (wnl) PFT: 08/01/2024 Ratio 75% (normal) FEV1 120%, FVC 125% Reported positive bronchodilator response based on FEF 25-75. RV 129% (high) TLC 133% (high) DLCOc 10 3% (normal) CT Chest: 02/13/2024 (OSH, images unavailable) - [facility] in [facility] Lung: Scattered linear densities and calcifications, chronic scarring is favored. Mild dependent atelectasis. No focal parenchymal infiltrates or significant pulmonary nodules. Pleura: No mass, effusion, pneumothorax Lizeth: Small calcified right hilar lymph nodes. Assessment and Plan: Ms. Dacosta is a 59 year old female who presents to the [facility] [place] for evaluation of bronchitis. #Recurrent bronchitis #Asthma (more content not included)...NormalMercy HealthHISTORY PHYSICALon [id number] PHYSICALHNO ID: [id number] Author: ELGIN PELAYO MD Service: ? Author Type: Physician Type: H&P Filed: 08/14/2024 10:50 Note Text: . [facility] [place] [facility] Initial Visit Note Ms. Dacosta is a 59 year old female who presents to the [facility] [place]. Consultation requested by Rakesh Vernon MD for [...] getting sick again Evaluated for immunodeficiency by Tax Manager Cpa at [facility]. On 06/09/2024. [...] personally reviewed by me Data Reviewed from [facility] (in addition to that noted in HPI, and Past histories above): (Data from patient's OSH mychart shown on phone) CBC: last eos 100 (05/2024) IgE: 45 (wnl) PFT: 08/01/2024 Ratio 75% (normal) FEV1 120%, FVC 125% Reported positive bronchodilator response based on FEF 25-75. RV 129% (high) TLC 133% (high) DLCOc 10 3% (normal) CT Chest: 02/13/2024 (OSH, images unavailable) - [facility] in [facility] Lung: Scattered linear densities and calcifications, chronic scarring is favored. Mild dependent atelectasis. No focal parenchymal infiltrates or significant pulmonary nodules. Pleura: No mass, effusion, pneumothorax Lizeth: Small calcified right hilar lymph nodes. Assessment and Plan: Ms. Dacosta is a 59 year old female who presents to the [facility] [place] for evaluation of bronchitis. #Recurrent bronchitis #Asthma Description of these bronchitis episodes-recurrent, only present after initial COVID infection, never associated with fever or systemic symptoms- is more consistent with exacerbation of airway inflammation/asthma. 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 (more content not included)...NormalMemorial Health System W Auto Differential panel (Bld)on 43-48-6444Rykojfonl (Bld) [#/Vol] 0.1 10*3/uLNOMS HealthcareBasophils/100 WBC (Bld)1 %Not Estab.[facility] Healthcare Eosinophils (Bld) [#/Vol]0.1 10*3/uLNOMS HealthcareEosinophils/100 WBC (Bld)1 % Not Estab.[facility] Medical CenterErythrocyte distribution width (RBC) [Ratio]12.9 %11.7 - 15.4 %[facility] HealthcareHematocrit (Bld) [Volume fraction]44.5 %34.0 - 46.6 %[facility] Medical CenterHemoglobin (Bld) [Mass/Vol]14.9 g/dL11.1 - 15.9 g/dLSaint John's Breech Regional Medical Center Immature granulocytes (Bld) [#/Vol]0 10*3/uLNOMS HealthcareImmature granulocytes/100 WBC (Bld)0 %Not Estab.[facility] Medical CenterLymphocytes (Bld) [#/Vol] 2.7 10*3/uLNOMS HealthcareLymphocytes/100 WBC (Bld)28 %Not Estab.[facility] MCH (RBC) [Entitic mass]29.7 pg26.6 - 33.0 pgNOMadison Medical CenterMCHC (RBC) [Mass/Vol]33.5 g/dL31.5 - 35.7 g/dLSaint John's Breech Regional Medical CenterMCV (RBC) [Entitic vol]89 fL79 - 97 fLSPANISH FORK HOSPITAL HealthcareMonocytes (Bld) [#/Vol]0.5 10*3/uLNOMS Healthcare Monocytes/100 WBC (Bld)5 %Not Estab.[facility] HealthcareNeutrophils (Bld) [#/Vol]6.3 10*3/uLNOMS HealthcareNeutrophils/100 WBC (Bld)65 %Not Estab.[facility] Platelets (Bld) [#/Vol]327 10*3/uLNOMS HealthcareRBC (Bld) [#/Vol]5.02 10*6/uL NOM HealthcareWBC (Bld) [#/Vol]9.8 10*3/uLNOMS HealthcareComment on above: Effective June 16, 2024 profile [id number] WBC will be made non-orderable as a stand-alone order code. Diphtheria / Tetanus Antibody Panelon 06-13-2024. diphtheriae Ab IA Qn (S)<0.10 LowNIBaptist Memorial HospitalComment on above:Interpretation: Non-Protective <0.10 Protective >=0.10 For research use only. C. tetani toxoid IgG IA Qn0.71NIBaptist Memorial HospitalComment on above: Interpretation: Non-Protective <0.10 Protective >=0.10 Results for this test are for research purposes only by the assay's machine shop worker. The performance characteristics of this product have not been established. Results should not be used as a diagnostic procedure without confirmation of the diagnosis by another medically established diagnostic product or procedure. IgAon 48-59-4688CmZ [Mass/Vol]346 mg/dL87 - 352 mg/dLNOLA HealthcareIgEon 73-82-8898RvM Qn45 [IU]/LNOMS HealthcareIgGon 35-80-9612OfG [Mass/Vol]915 mg/dL 586 - 1602 mg/dLNOLA HealthcareIgMon 24-76-7106KcY [Mass/Vol]123 mg/dL26 - 217 mg/dLSaint John's Breech Regional Medical CenterNo Panel Informationon 37-93-9139Zqwjwtfiivrkef and review of laboratory resultsAbUP Health SystemPerformed at: 01 - [address] [id number] Coal Loader: Red Duque PhD, Phone: [phone] War Demonstration Hospital Performed at: [address] [id number] Coal Loader: Earnest Gupta MD, Phone: [phone] AB (23 SEROTYPE)on 06-13-2024S. pneumoniae Swiss type 1 IgG IA (S) [Mass/Vol]<0.1Low 1.3 - PINF ug/mLNOMS HealthcareS. pneumoniae Swiss type 10A IgG IA (S) [Mass/Vol]<0.1Low1.3 - PINF ug/mLNOMS HealthcareS. pneumoniae Swiss type 11A IgG IA (S) [Mass/Vol]<0.1Low1.3 - PINF ug/mLNOMS HealthcareS. pneumoniae Swiss type 12F IgG IA (S) [Mass/Vol]<0.1Low1.3 - PINF ug/mLNOMS HealthcareS. pneumoniae Swiss type 14 IgG IA (S) [Mass/Vol]<0.1Low1.3 - PINF ug/mLNOMS HealthcareS. pneumoniae Swiss type 15B IgG IA (S) [Mass/Vol]<0.2Low1.3 - PINF ug/mLNOMS HealthcareS. pneumoniae Swiss type 17F IgG IA (S) [Mass/Vol]0.7 ug/mL Low1.3 - PINF ug/mLNOMS HealthcareS. pneumoniae Swiss type 18C IgG IA (S) [Mass/Vol]<0.1Low1.3 - PINF ug/mLNOMS HealthcareS. pneumoniae Swiss type 19A IgG IA (S) [Mass/Vol]0.5 ug/mLLow1.3 - PINF ug/mLNOMS HealthcareS. pneumoniae Swiss type 19F IgG IA (S) [Mass/Vol]0.3 ug/mLLow1.3 - PINF ug/mLNOMS Healthcare S. pneumoniae Swiss type 2 IgG IA (S) [Mass/Vol]<0.2Low1.3 - PINF ug/mLNOMS HealthcareS. pneumoniae Swiss type 20A IgG IA (S) [Mass/Vol]0.2 ug/mLLow1.3 - PINF ug/mLNOMS HealthcareS. pneumoniae Swiss type 22F IgG IA (S) [Mass/Vol]0.1 ug/mLLow1.3 - PINF ug/mLNOMS HealthcareS. pneumoniae Swiss type 23F IgG IA (S) [Mass/Vol]<0.1Low1.3 - PINF ug/mLNOMS HealthcareS. pneumoniae Swiss type 3 IgG IA (S) [Mass/Vol]<0.1Low1.3 - PINF ug/mLNOMS HealthcareS. pneumoniae Swiss type 33F IgG IA (S) [Mass/Vol]0.8 ug/mLLow1.3 - PINF ug/mLNOMS HealthcareComment on above:*This test was developed and its performance characteristics determined by [employer]. It has not been cleared or approved by the U.S. Food and Drug Administration. FLAG Interpretation: A = Abnormal, H = High, L = Low S. pneumoniae Swiss type 4 IgG IA (S) [Mass/Vol]<0.1Low1.3 - PINF ug/mLNOMS HealthcareS. pneumoniae Swiss type 5 IgG IA (S) [Mass/Vol]0.7 ug/mLLow1.3 - PINF ug/mLNOMS HealthcareS. pneumoniae Swiss type 6B IgG IA (S) [Mass/Vol]<0.1 Low1.3 - PINF ug/mLNOMS HealthcareS. pneumoniae Swiss type 7F IgG IA (S) [Mass/Vol]<0.1Low1.3 - PINF ug/mLNOMS HealthcareS. pneumoniae Swiss type 8 IgG IA (S) [Mass/Vol]10.7 ug/mL1.3 - PINF ug/mLNOMS HealthcareS. pneumoniae Swiss type 9N IgG IA (S) [Mass/Vol]<0.1Low1.3 - PINF ug/mLNOMS HealthcareS. pneumoniae Swiss type 9V IgG IA (S) [Mass/Vol]<0.1Low1.3 - PINF ug/mLNOMS Healthcare Performed at: [facility] [address] [address] [id number] Coal Loader: EBER Gutierrez PhDBC, Phone: [phone] cox south 18-27-2678WogYxguuvGeorgetown Behavioral Hospital W Auto Differential panel (Bld)on 65-68-4182Jczsithyo (Bld) [#/Vol]0.03 10*3/[facility] Basophils/100 WBC (Bld)0.4 %0.0 - 2.0 %[facility] Eosinophils (Bld) [#/Vol]0.06 10*3/[facility] Eosinophils/100 WBC (Bld)0.9 %0.0 - 6.0 %[facility] Erythrocyte distribution width (RBC) [Ratio]13.2 %11.5 - 14.5 %[facility] HealthHematocrit (Bld) [Volume fraction]41.6 %36.0 - 46.0 % [facility] HealthHemoglobin (Bld) [Mass/Vol]13.8 g/dL12.0 - 16.0 g/dLUnBerger HospitalImmature granulocytes (Bld) [#/Vol]0.07 10*3/[facility] HospitalImmature granulocytes/100 WBC (Bld)1.0 % High0.0 - 0.9 %[facility] on above:Immature Granulocyte Count (IG) includes promyelocytes, myelocytes and metamyelocytes but does not include bands. Percent differential counts (%) should be interpreted in the context of the absolute cell counts (cells/UL).Interpretation and review of laboratory resultsAbnormalUniSelect Medical Specialty Hospital - TrumbullLymphocytes (Bld) [#/Vol]2.17 10*3/[facility] HospitalLymphocytes/100 WBC (Bld) 32.1 %13.0 - 44.0 %[facility] TrumbullH (RBC) [Entitic mass]29.6 pg26.0 - 34.0 pgUnJoint Township District Memorial HospitalHC (RBC) [Mass/Vol]33.2 g/dL 32.0 - 36.0 g/dLSelect Medical Specialty Hospital - TrumbullV (RBC) [Entitic vol]89 fL80 - 100 fLUniSelect Medical Specialty Hospital - TrumbullMonocytes (Bld) [#/Vol]0.32 10*3/[facility] HospitalMonocytes/100 WBC (Bld)4.7 %2.0 - 10.0 % [facility] HealthNeutrophils (Bld) [#/Vol]4.12 10*3/[facility] on above:Percent differential counts (%) should be interpreted in the context of the absolute cell counts (cells/uL). Neutrophils/100 WBC (Bld)60.9 %40.0 - 80.0 %[facility] Nucleated RBC/100 WBC (Bld) [Ratio]0.0 %[facility] Platelets (Bld) [#/Vol]234 10*3/[facility] HospitalRBC (Bld) [#/Vol]4.66 10*6/[facility] HospitalWBC (Bld) [#/Vol]6.8 10*3/uL [facility] HealthUnBerger HospitalBasophils (Bld) [#/Vol]0.03 x10*3/Normal0.00-0.10Protestant HospitalComment on above:Performed By: #### 51998-5 #### MIK FREITAS ([id number]) [facility] ([facility]) [id number] [place] [address] 96633Ypjvsaicb/100 WBC (Bld)0.4 %Normal0.0-2.0Protestant HospitalComment on above:Performed By: #### 54332-0 #### MIK FREITAS (07836) [facility] ([facility]) [address] [place] [address] 84282Jspcjgajtuy (Bld) [#/Vol]0.06 x10*3/uLNormal0.00-0.70 Protestant HospitalComment on above:Performed By: #### 57471-9 #### MIK FREITAS (04396) [facility] ([facility]) [address] [place] [address] 71726Itsjhxetehz/100 WBC (Bld)0.9 %Normal0.0-6.0UnParkview HealthComment on above:Performed By: #### 84731-1 #### MIK FREITAS (25063) [facility] ([facility]) [address] [place] [address] 79137Rixxevupndl distribution width (RBC) [Ratio]13.2 %Normal 11.5-14.5UnParkview HealthComment on above:Performed By: #### 21761-5 #### MIK FREITAS (40042) [facility] ([facility]) [id number] [place] [address] 76585Rmqhwcdtcc (Bld) [Volume fraction]41.6 %Yqoapt69.0-46.0 Protestant HospitalComment on above:Performed By: #### 46807-8 #### MIK FREITAS (80454) [facility] ([facility]) [address] [place] [address] 63916Qisnrqevbt (Bld) [Mass/Vol]13.8 g/jDFucxiv83.0-16.0Protestant HospitalComment on above:Performed By: #### 60977-3 #### MIK FREITAS (35822) [facility] ([facility]) [address] [place], [place] [address]Sudlhjpa granulocytes (Bld) [#/Vol]0.07 x10*3/uLNormal 0.00-0.70Protestant HospitalComment on above:Performed By: #### 98004-0 #### MIK FREITAS (59012) [facility] ([facility]) [address] [place] [address] 71179Euktxseb granulocytes/100 WBC (Bld)1.0 %High0.0-0.9Protestant HospitalComment on above:Result Comment: Immature Granulocyte Count (IG) includes promyelocytes, myelocytes and metamyelocytes but does not include bands. Percent differential counts (%) should be interpreted in the context of the absolute cell counts (cells/UL).Performed By: #### 64692-8 #### MIK FREITAS (21103) [facility] ([facility]) [address] [place] [address] 13[address]Hhimmvpbxxb (Bld) [#/Vol]2.17 x10*3/uLNormal1.20-4.80 Protestant HospitalComment on above:Performed By: #### 88609-0 #### MIK FREITAS (59488) [facility] ([facility]) [address] [place] [address] 94[address]Weizebssflx/100 WBC (Bld)32.1 %Cxyihc99.0-44.0Protestant HospitalComment on above:Performed By: #### 91643-7 #### MIK FREITAS (28603) [facility] ([facility]) [address] [place], [place] [address]TNE (RBC) [Entitic mass]29.6 uaAzqaup41.0-34.0Protestant HospitalComment on above:Performed By: #### 61742-4 #### MIK FREITAS (24023) [facility] ([facility]) [address] [place], [place] [address]JBQK (RBC) [Mass/Vol]33.2 g/wEQhvsds93.0-36.0Protestant HospitalComment on above:Performed By: #### 49591-1 #### MIK FREITAS (94844) [facility] ([facility]) [address] [place], [place] [address]LTY (RBC) [Entitic vol]89 hTAjxare59-457FckoxdlcgmParkview HealthComment on above:Performed By: #### 37483-2 #### MIK FREITAS (72613) [facility] ([facility]) [address] [place] [address] 00581Igwwvisrk (Bld) [#/Vol]0.32 x10*3/uLNormal0.10-1.00UnParkview HealthComment on above:Performed By: #### 81167-6 #### MIK FREITAS (90055) [facility] ([facility]) [address] [place], [place] [address]Otjukzzrf/100 WBC (Bld)4.7 %Normal2.0-10.0Protestant HospitalComment on above:Performed By: #### 13552-5 #### MIK FREITAS (46018) [facility] ([facility]) [address] [place], [place] [address]Rxxbxgjymfj (Bld) [#/Vol]4.12 x10*3/uLNormal1.20-7.70 Protestant HospitalComment on above:Result Comment: Percent differential counts (%) should be interpreted in the context of the absolute cell counts (cells/uL).Performed By: #### 98261-6 #### MIK FREITAS (43332) [facility] ([facility]) [address] [place], [place] [address]Pmfijdcdfcp/100 WBC (Bld)60.9 %Avtucs46.0-80.0Protestant HospitalComment on above:Performed By: #### 32710-7 #### MIK FREITAS (17922) [facility] ([facility]) [address] [place], [place] [address]Tkhsworyv RBC/100 WBC (Bld) [Ratio]0.0 /100 WBCsNormal0.0-0.0 Protestant HospitalComment on above:Performed By: #### 13811-8 #### MIK FREITAS (09744) [facility] ([facility]) [address] [place], [place] [address]Fmupmidjx (Bld) [#/Vol]234 x10*3/gFYzuywr832-455YrsrnlrllwParkview HealthComment on above:Performed By: #### 45856-1 #### MIK FREITAS (00600) [facility] ([facility]) [address] [place] [address]MDL (Bld) [#/Vol]4.66 x10*6/uLNormal4.00-5.20UnParkview HealthComment on above:Performed By: #### 48811-1 #### MIK FREITAS (46500) [facility] ([facility]) [address] [place] [address]FUF (Bld) [#/Vol]6.8 x10*3/uLNormal4.4-11.3Protestant HospitalComment on above:Performed By: #### 62751-2 #### MIK FREITAS (43410) [facility] ([facility]) [address] [place] [address] 19[address]KO CERVICAL SPINE WO IV CONTRASTon 45-24-7914YK CERVICAL SPINE WO IV CONTRASTInterpreted By: Willy Anderson, STUDY: CT CERVICAL SPINE WO IV CONTRAST; 08/07/2023 9:01 am INDICATION: Signs/Symptoms:Mechanical fall, no thinners, positive LOC. COMPARISON: None. ACCESSION NUMBER(S): [id number] ORDERING CLINICIAN: NEELIMA PERALTA TECHNIQUE: Axial CT [...] Willy Anderson 08/07/2023 9:41 AM Dictation workstation: [id number]. Mary's Medical CenterCT Cervical spine WO contraston 17-64-6340Ey evidence for an acute fracture or subluxation of the cervical spine. MACRO: None Signed by: Willy Anderson 08/07/2023 9:41 AM Dictation workstation: [id number] MMODALInterpreted By: Willy Anderson, STUDY: CT CERVICAL SPINE WO IV CONTRAST; 08/07/2023 9:01 am INDICATION: Signs/Symptoms:Mechanical fall, no thinners, positive LOC. COMPARISON: None. ACCESSION NUMBER(S): [id number] ORDERING CLINICIAN: NEELIMA PERALTA TECHNIQUE: Axial CT [...] Willy Kovacs MD - 08/07/2023 Interpreted By: Willy Anderson, STUDY: CT CERVICAL SPINE WO IV CONTRAST; 08/07/2023 9:01 am INDICATION: Signs/Symptoms:Mechanical fall, no thinners, positive LOC. COMPARISON: None. ACCESSION NUMBER(S): [id number] ORDERING CLINICIAN: NEELIMA PERALTA TECHNIQUE: Axial CT [...] Willy Anderson 08/07/2023 9:41 AM Dictation workstation: [id number] [facility] Work Phone: [facility] Work Phone: CT HEAD WO IV CONTRASTon 60-98-0716CM HEAD WO IV CONTRASTInterpreted By: Willy Anderson, STUDY: CT HEAD WO IV CONTRAST; 08/07/2023 9:01 am INDICATION: Signs/Symptoms:Mechanical fall, no thinners, positive LOC. COMPARISON: None. ACCESSION NUMBER(S): [id number] ORDERING CLINICIAN: NEELIMA PERALTA TECHNIQUE: Noncontrast axial [...] Willy Anderson 08/07/2023 9:38 AM Dictation workstation: [id number]. Mary's Medical CenterCT Head WO contraston 86-71-0308Lm acute intracranial hemorrhage, mass effect, or calvarial fracture. MACRO: None Signed by: Willy Anderson 08/07/2023 9:38 AM Dictation workstation: [id number] MMODALInterpreted By: Willy Anderson, STUDY: CT HEAD WO IV CONTRAST; 08/07/2023 9:01 am INDICATION: Signs/Symptoms:Mechanical fall, no thinners, positive LOC. COMPARISON: None. ACCESSION NUMBER(S): [id number] ORDERING CLINICIAN: NEELIMA PERALTA TECHNIQUE: Noncontrast axial [...] thinners, positive LOC. COMPARISON: None. ACCESSION NUMBER(S): [id number] ORDERING CLINICIAN: NEELIMA PERALTA TECHNIQUE: Noncontrast axial [...] Willy Anderson 08/07/2023 9:38 AM Dictation workstation: [id number] [facility] Work Phone: CT Head WO contrastOrdered By: Willy Anderson on 78-03-7911LufgpyotdlMercy Health Work Phone: ct THORACIC SPINE WO IV CONTRASTon 30-30-4402TB THORACIC SPINE WO IV CONTRASTInterpreted By: Willy Anderson, STUDY: CT THORACIC SPINE WO IV CONTRAST; 08/07/2023 9:01 am INDICATION: Signs/Symptoms:Mechanical fall, no thinners, positive LOC, thoracic spinal tenderness. COMPARISON: None. ACCESSION NUMBER(S): [id number] ORDERING CLINICIAN: NEELIMA PERALTA TECHNIQUE: Axial CT [...] Willy Anderson 08/07/2023 9:48 AM Dictation workstation: [id number]. Mary's Medical CenterCT Thoracic spine WO contraston 18-04-9043Ed acute osseous abnormality of the thoracic spine. Mild chronic appearing anterior wedging of a few scattered thoracic vertebral bodies as above. MACRO: None Signed by: Willy Anderson 08/07/2023 9:48 AM Dictation workstation: [id number] MMODALInterpreted By: Willy Anderson, STUDY: CT THORACIC SPINE WO IV CONTRAST; 08/07/2023 9:01 am INDICATION: Signs/Symptoms:Mechanical fall, no thinners, positive LOC, thoracic spinal tenderness. COMPARISON: None. ACCESSION NUMBER(S): [id number] ORDERING CLINICIAN: NEELIMA PERALTA TECHNIQUE: Axial CT [...] thoracic spinal tenderness. COMPARISON: None. ACCESSION NUMBER(S): [id number] ORDERING CLINICIAN: NEELIMA PERALTA TECHNIQUE: Axial CT [...] Willy Anderson 08/07/2023 9:48 AM Dictation workstation: [id number] [facility] Work Phone: [facility] Work Phone: Coagulation tissue factor inducedon 65-88-7218RV Coag (PPP) [Time]11.1 sNormal9.8-12.8UnParkview Health Comment on above:Performed By: #### 5902-2 #### MIK FREITAS ([id number]) [facility] ([facility] [address] [place], [place] [address]Comprehensive metabolic 2000 panelon 24-12-3051Yeymshq BCP dye [Mass/Vol]4.7 g/dL3.4 - 5.0 g/dLUnBerger HospitalALP [Catalytic activity/Vol]61 U/L33 - 110 U/[facility] HospitalALT With P-5'-P [Catalytic activity/Vol]27 U/L7 - 45 U/[facility]iff[facility] HospitalComment on above:Patients treated with Sulfasalazine may generate falsely decreased results for ALT.Anion gap [Moles/Vol]11 mmol/L10 - 20 mmol/[facility] Tiffin HospitalAST With P-5'-P [Catalytic activity/Vol]23 U/L9 - 39 U/[facility] HospitalBilirubin [Mass/Vol]0.5 mg/dL0.0 - 1.2 mg/dLUnBerger HospitalCalcium [Mass/Vol]9.4 mg/dL8.6 - 10.3 mg/dLUnBerger HospitalChloride [Moles/Vol]101 mmol/L98 - 107 mmol/[facility] HospitalCO2 [Moles/Vol]28 mmol/L21 - 32 mmol/[facility] HospitalCreatinine [Mass/Vol]0.75 mg/dL0.50 - 1.05 mg/dLUnBerger HospitaleGFR- PINFUniSelect Medical Specialty Hospital - TrumbullComment on above:Calculations of estimated GFR are performed using the 2020 CKD-EPI Study Refit equation without therace variable for the IDMS-Traceable creatinine methods. https://jasn.asnjournals.org/content/early/ASN.9014309047 Glucose [Mass/Vol]108 mg/eCGvss34 - 99 mg/dLUnBerger Hospital Interpretation and review of laboratory resultsAbnormalUniSelect Medical Specialty Hospital - TrumbullPotassium [Moles/Vol]3.8 mmol/L3.5 - 5.3 mmol/[facility] HospitalProtein [Mass/Vol]7.8 g/dL6.4 - 8.2 g/dLUnBerger HospitalSodium [Moles/Vol]136 mmol/L136 - 145 mmol/[facility] HospitalUrea nitrogen [Mass/Vol]13 mg/dL6 - 23 mg/dLUnBerger HospitalUnBerger HospitalAlbumin BCP dye [Mass/Vol]4.7 g/dL Normal3.4-5.0UnParkview HealthComment on above: Performed By: #### 62606-5 #### MIK FREITAS ([id number]) [facility] ([facility]) [address] [place], [place] [address]TSZ [Catalytic activity/Vol]61 U/CPztkfe64-377NtwdgjkhwnParkview HealthComment on above:Performed By: #### 92509-5 #### MIK FREITAS ([id number]) [facility] ([facility]) [address] [place], [place] [address]BEZ With P-5'-P [Catalytic activity/Vol]27 U/LNormal7-45 Protestant HospitalComment on above:Result Comment: Patients treated with Sulfasalazine may generate falsely decreased results for ALT.Performed By: #### 43496-6 #### MIK FREITAS ([id number]) [facility] ([facility]) [address] [place], [place] [address]Sjzks gap [Moles/Vol]11 mmol/ZOqyydg48-13AkecnzxpmgProtestant HospitalComment on above:Performed By: #### 49726-4 #### MIK FREITAS ([id number]) [facility] ([facility]) [address] [facility], [place] [address]QKJ With P-5'-P [Catalytic activity/Vol]23 U/LNormal9-39 Protestant HospitalComment on above:Performed By: #### 91294-3 #### MIK FREITAS ([id number]) [facility] ([facility]) [address] [facility] [place], [place] [address]Wonxfeyyi [Mass/Vol]0.5 mg/dLNormal0.0-1.2Protestant HospitalComment on above:Performed By: #### 47622-2 #### MIK FREITAS ([id number]) [facility] ([facility]) [address] [facility] [place], [place] [address]Brmzdvc [Mass/Vol]9.4 mg/dLNormal8.6-10.3Protestant HospitalComment on above:Performed By: #### 13566-2 #### MIK FREITAS ([id number]) [facility] ([facility]) [address] [facility], [place] [address]Lavswznb [Moles/Vol]101 mmol/CKutbzh61-730DpkbdvasxuProtestant HospitalComment on above:Performed By: #### 83053-0 #### MIK FREITAS ([id number]) [facility] ([facility]) [address] [place], [place] [address]ZA3 [Moles/Vol]28 mmol/HGvoffd64-84IbejeuichjProtestant HospitalComment on above:Performed By: #### 63678-0 #### MIK FREITAS ([id number]) [facility] ([facility]) [address] [place], [place] [address]Fpenybprwp [Mass/Vol]0.75 mg/dLNormal0.50-1.05Protestant HospitalComment on above:Performed By: #### 36476-7 #### MIK FREITAS ([id number]) [facility] ([facility]) [address] [place], [place] [address]SLP/1.73 sq M.predicted MDRD (S/P/Bld) [Vol rate/Area] mL/min/{1.73_m2}Normal>60UnParkview HealthComment on above:Result Comment: Calculations of estimated GFR are performed using the 2020 CKD-EPI Study Refit equation without the race variable for the IDMS-Traceable creatinine methods. https://jasn.asnjournals.org/content/early//ASN.2746013662Wtxxyrfhn By: #### 27966-5 #### MIK FREITAS ([id number]) [facility] ([facility]) [address] [place], [place] [address]Nlvgevr [Mass/Vol]108 mg/dNKxay04-75VpqhysblvbParkview HealthComment on above:Performed By: #### 02328-1 #### MIK FREITAS ([id number]) [facility] ([facility]) [address] [place], [place] [address]Ohlkvmonh [Moles/Vol]3.8 mmol/LNormal3.5-5.3Protestant HospitalComment on above:Performed By: #### 37059-1 #### MIK FREITAS ([id number]) [facility] ([facility]) [address] [place], [place] [address]Yrgekxj [Mass/Vol]7.8 g/dLNormal6.4-8.2Protestant HospitalComment on above:Performed By: #### 69166-9 ###Noel FREITAS ([id number]) [facility] ([facility]) [address] [place], [place] [address]Ooaznm [Moles/Vol]136 mmol/CSwmcjx885-362LcnrmcbhfqProtestant HospitalComment on above:Performed By: #### 13727-9 #### MIK FREITAS ([id number]) [facility] ([facility]) [address] [place], [place] [address]Utgm nitrogen [Mass/Vol]13 mg/dLNormal6-23UnParkview HealthComment on above:Performed By: #### 02036-5 #### MIK FREITAS ([id number]) [facility] ([facility]) [address] [place], [place] [address]LAS 12-LEADon 85-25-7407CIE 12-LEADVentricular Rate 73 Atrial Rate 73 P-R Interval 168 QRS Duration 70 Q-T Interval 392 QTC Calculation(Bazett) 431 P [place] 32 R [place] 43 T [place] 24 QRS Count 12 Q Onset 225 P Onset 141 P Offset 194 T Offset 421 QTC Fredericia 418 Diagnosis Normal sinus rhythm Septal infarct , age undetermined Abnormal ECG No previous ECGs available Confirmed by Josie Anthony ([id number]) on 08/29/2023 9:59:19 PMNormalPascack Valley Medical CenterNo Panel Informationon 62-01-3410Prnwgncsz Study observation (narrative)[facility] Work Phone: pt Coag (PPP) [Time]on 83-00-6342IBS Coag (PPP) [Relative time]1.0 {INR}0.9 - 1.1Mercy HealthInterpretation and review of laboratory resultsNormalUniversFairview Regional Medical Center – FairviewINR Coag (PPP) [Relative time]1.5Grtypz6.9-1.1 Protestant HospitalComment on above:Performed By: #### 5902-2 #### MIK FREITAS ([id number]) [facility] ([facility]) [address] [place], [place] [address]Ggfzhbk-ZTGca 01-41-9854DZ Coag (PPP) [Time]11.1 [facility] HospitalCB AUTO DIFFon 67-08-1508JJMN #0.0 103/ulNormal0.0-0.1The Samaritan HospitalComment on above:Performed By: #### CBC #### [facility] [address] [address] [address] Enrique ParkinsonBasophils/100 WBC (Bld)0.6 %Normal0.2-2.0[facility] Comment on above:Performed By: #### CBC #### [facility] [address] [address] [address] Enrique Shafer #0.1 103/ulNormal0.0-0.7The Samaritan HospitalComment on above: Performed By: #### CBC #### [facility] [address] [place] [address] Dr. Enrique Chaseosinophils/100 WBC (Bld)0.9 %Normal0.9-7.0[facility] Comment on above:Performed By: #### CBC #### [facility] [address] [address] [address] Enrique Chaserythrocyte distribution width (RBC) [Ratio]12.9 %Ddpiaa87.0-15.0 The Samaritan HospitalComment on above:Performed By: #### CBC #### [facility] [address] [address] [address] Enrique ParkinsonHematocrit (Bld) [Volume fraction]41.5 %Ktccdn87.0-48.0The Samaritan HospitalComment on above:Performed By: #### CBC #### [facility] [address] [address] [address] Enrique ParkinsonHemoglobin (Bld) [Mass/Vol]14.3 g/tCGmmjoo22.0-16.0The Samaritan HospitalComment on above:Performed By: #### CBC #### [facility] [address] [place] [address] Dr. Enrique Tobar #0.02 10e3/ulNormal0.00-0.03The Toledo Hospitalment on above:Performed By: #### CBC #### [facility] [address] [address] [address] Enrique Tobar %0.3 %Normal0.0-0.5The [facility] on above: Performed By: #### CBC #### [facility] [address] [address] [address] Enrique Archuleta #1.8 103/ulNormal1.2-3.8The [facility]aritan HospitalComcorewell health big rapids hospital on above:Performed By: #### CBC #### [facility] [address] [place] [address] Dr. Enrique Grayhocytes/100 WBC (Bld)25.9 %Qidngf91.5-60.0City HospitalComcorewell health big rapids hospital on above:Performed By: #### CBC #### [facility] [address] [place] [address] Dr. Enrique Acevedo DIFF REQNONormalThe Samaritan HospitalComment on above: Performed By: #### CBC #### [facility] [address] [place] [address] Dr. Enrique Coppola (RBC) [Entitic mass]30.2 qwRwzkls71.7-34.0The [facility] on above:Performed By: #### CBC #### [facility] [address] [place] [address] Dr. Enrique Darnell (RBC) [Mass/Vol]34.5 g/eNJezeoh46.9-35.2The [facility] Hospitalment on above:Performed By: #### CBC #### [facility] [address] [place] [address] Dr. Enrique Darnell (RBC) [Entitic vol]87.6 aNNgdwbv50.0-99.0The [facility] on above:Performed By: #### CBC #### [facility] [address] [place] [address] Dr. Enrique Dolan #0.4 103/ulNormal0.3-0.8The Samaritan HospitalComment on above:Performed By: #### CBC #### [facility] [address] [place] [address] Dr. Enrique Goodsonocytes/100 WBC (Bld)5.1 %Normal1.7-12.0[facility] Comment on above:Performed By: #### CBC #### [facility] [address] [place] [address] Dr. Enrique James #4.6 103/ulNormal1.4-6.5The Samaritan HospitalComment on above:Performed By: #### CBC #### [facility] [address] [place] [address] Dr. Enrique Oroutrophils/100 WBC (Bld)67.2 %Rhjqtl73.0-75.0The [facility]itan HospitalComment on above:Performed By: #### CBC #### [facility] [address] [place] [address] Dr. Enrique Aguilalet mean volume (Bld) [Entitic vol]9.2 fLCritically low 9.5-13.5The [facility]itan HospitalComment on above:Performed By: #### CBC #### [facility] [address] [place] [address] Dr. Enrique ParkinsonPLT246 103/eaRgqosn338-568Bfm [facility]itan HospitalComment on above: Performed By: #### CBC #### [facility] [address] [place] [address] Dr. Enrique ParkinsonRBC4.74 106/ulNormal4.20-5.40The Samaritan HospitalComment on above:Performed By: #### CBC #### [facility] [address] [place] [address] Dr. Enrique ParkinsonWBC6.9 103/ulNormal4.0-11.0The [facility]itan HospitalComment on above: Performed By: #### CBC #### [facility] [address] [place] [address] Dr. Enrique Currie T3on 74-79-5074UDDD T32.43 pg/mlLNormal2.18-3.98The [facility] on above:Performed By: #### T4, TSH, LIPID, CMP, FT3 #### [facility] [address] [place] [address] Dr. Enrique ParkinsonGLYCOHEMOGLOBIN A1Con 62-81-9600QGB RECOMMENDATIONSEE BELOWBellevue HospitalComcorewell health big rapids hospital on above:Result Comment: ADA RECOMMENDED LIMIT 4.0 - 6.0 ADA THERAPEUTIC TARGET < 7.0 ACTION SUGGESTED > 7.0Performed By: #### A1C #### [facility] [address] [place] [address] Dr. Enrique ParkinsonGlucose [Mass/Vol]114 mg/dLTwin City HospitalComcorewell health big rapids hospital on above:Performed By: #### A1C #### [facility] [address] [place] [address] Dr. Enrique ParkinsonHbA1c (Bld) [Mass fraction]5.6 %Normal4.5-6.2The [facility] on above:Performed By: #### A1C #### [facility] [address] [place] [address] Dr. Enrique ParkinsonLIPID PROFILEon 45-74-5573GNGF-HDL RATIO NORMSEE [facility] HospitalComcorewell health big rap[facility] hospital on above:Result Comment: 3.3 - 4.4 LOW RISK 4.4 - 7.1 AVERAGE RISK 7.1 - 11.0 MODERATE RISK >11.0 HIGH RISKPerformed By: #### T4, TSH, LIPID, CMP, FT3 #### [facility] [address] [place] [address] Dr. Enrique ParkinsonCholesterol [Mass/Vol]241 mg/dLCritically high<=200The [facility] on above:Performed By: #### T4, TSH, LIPID, CMP, FT3 #### [facility] [address] [place] [address] Dr. Enrique ParkinsonCholesterol in HDL [Mass/Vol]45 mg/kJDxbyzg84-46Bpg [facility] on above:Performed By: #### T4, TSH, LIPID, CMP, FT3 #### [facility] [address] [address] [address] Enrique ParkinsonCholesterol in LDL [Mass/Vol]131.2 mg/dLCenterville on above:Performed By: #### T4, TSH, LIPID, CMP, FT3 #### [facility] [address] [address] [address] Enrique Garcia.total/Cholesterol in HDL [Mass ratio]5.4 {ratio} NormalThe [facility] on above:Performed By: #### T4, TSH, LIPID, CMP, FT3 #### [facility] [address] [place] [address] Dr. Enrique Krueger NORMAL> or = 60 mg/dl - LOW CARDIOVASCULAR RISK <40 mg/dl - HIGH CARDIOVASCULAR RISKCenterville on above:Performed By: #### T4, TSH, LIPID, CMP, FT3 #### [facility] [address] [address] [address] Enrique Cespedes CALC NORMALSEE BELOWTwin City HospitalComcorewell health big rapids hospital on above:Result Comment: <100 mg/dl OPTIMAL 100 - 129 mg/dl NEAR OR ABOVE OPTIMAL 130 - 159 mg/dl BORDERLINE HIGH 160 - 189 mg/dl HIGH >190 mg/dl VERY HIGH Performed By: #### T4, TSH, LIPID, CMP, FT3 #### [facility] [address] [address] [address] Enrique ParkinsonTriglyceride [Mass/Vol]324 mg/dLCritically high<=150[facility] on above:Performed By: #### T4, TSH, LIPID, CMP, FT3 #### [facility] [address] [place] [address] Dr. Enrique ParkinsonVLDL CALC64.8 mg/dLCenterville on above: Performed By: #### T4, TSH, LIPID, CMP, FT3 #### [facility] [address] [place] [address] Dr. Enrique ParkinsonPROBon 14(COMP METB)on 90-41-1013Wpvdjwa [Mass/Vol]4.1 g/dLNormal 3.4-5.0The Samaritan HospitalComment on above:Performed By: #### T4, TSH, LIPID, CMP, FT3 #### [facility] [address] [place] [address] Dr. Enrique ParkinsonAlbumin/Globulin [Mass ratio]1.1 {ratio}NormalThe Samaritan HospitalComment on above:Performed By: #### T4, TSH, LIPID, CMP, FT3 #### [facility] [address] [place] [address] Dr. Enrique Ash [Catalytic activity/Vol]83 U/UBqkgdv13-167Jxt [facility]itan HospitalComcorewell health big rapids hospital on above:Performed By: #### T4, TSH, LIPID, CMP, FT3 #### [facility] [address] [place] [address] Dr. Enrique Angela [Catalytic activity/Vol]28 U/XRponcj84-83Yus [facility]itan HospitalComment on above:Performed By: #### T4, TSH, LIPID, CMP, FT3 #### [facility] [address] [place] [address] Dr. Enrique Lopes gap [Moles/Vol]12.3 mmol/LNormalThe [facility] Comment on above:Performed By: #### T4, TSH, LIPID, CMP, FT3 #### [facility] [address] [place] [address] Dr. Enrique Coon [Catalytic activity/Vol]20 U/VZelpsw89-53Iko [facility] on above:Performed By: #### T4, TSH, LIPID, CMP, FT3 #### [facility] [address] [place] [address] Dr. Enrique ParkinsonBilirubin [Mass/Vol]0.4 mg/dLNormal0.2-1.0[facility] Comment on above:Performed By: #### T4, TSH, LIPID, CMP, FT3 #### [facility] [address] [place] [address] Dr. Enrique ParkinsonCalcium [Mass/Vol]9.2 mg/dLNormal8.5-10.1[facility] Comment on above:Performed By: #### T4, TSH, LIPID, CMP, FT3 #### [facility] [address] [address] [address] Enrique ParkinsonChloride [Moles/Vol]101 mmol/UKnkbsr95-269Qgk [facility] Comment on above:Performed By: #### T4, TSH, LIPID, CMP, FT3 #### [facility] [address] [address] [address] Enrique ParkinsonCO2 [Moles/Vol]29.4 mmol/QNxulwk51.0-32.0[facility] Comment on above:Performed By: #### T4, TSH, LIPID, CMP, FT3 #### [facility] [address] [place] [address] Dr. Enrique ParkinsonCreatinine [Mass/Vol]0.80 mg/dLNormal0.55-1.02The [facility]itan HospitalComment on above:Performed By: #### T4, TSH, LIPID, CMP, FT3 #### [facility] [address] [place] [address] Dr. Enrique ChaseGFR-AF ICELANDIC>60Normal>=60The [facility]aritan HospitalComment on above:Performed By: #### T4, TSH, LIPID, CMP, FT3 #### [facility] [address] [place] [address] Dr. Enrique ChaseGFR-NON AF ICELANDIC>60Normal>=60The [facility]itan HospitalComment on above:Performed By: #### T4, TSH, LIPID, CMP, FT3 #### [facility] [address] [place] [address] Dr. Enrique ParkinsonGlobulin (S) [Mass/Vol]3.8 g/dLNormalThe Samaritan HospitalComment on above:Performed By: #### T4, TSH, LIPID, CMP, FT3 #### [facility] [address] [place] [address] Dr. Enrique ParkinsonGlucose [Mass/Vol]111 mg/dLCritically wzyv41-698Zkp [facility]itan HospitalComment on above:Performed By: #### T4, TSH, LIPID, CMP, FT3 #### [facility] [address] [place] [address] Dr. Enrique ParkinsonPotassium [Moles/Vol]3.7 mmol/LNormal3.5-5.1[facility] Comment on above:Performed By: #### T4, TSH, LIPID, CMP, FT3 #### [facility] [address] [place] [address] Dr. Enrique ParkinsonProtein [Mass/Vol]7.9 g/dLNormal6.4-8.2[facility] Comment on above:Performed By: #### T4, TSH, LIPID, CMP, FT3 #### [facility] [address] [place] [address] Dr. Enrique ParkinsonSodium [Moles/Vol]139 mmol/QEnbdlx803-308Zle [facility] Comment on above:Performed By: #### T4, TSH, LIPID, CMP, FT3 #### [facility] [address] [place] [address] Dr. Enrique ParkinsonUrea nitrogen [Mass/Vol]15.0 mg/dLNormal7.0-18.0The [facility]aritan HospitalComment on above:Performed By: #### T4, TSH, LIPID, CMP, FT3 #### [facility] [address] [place] [address] Dr. Enrique ParkinsonUrea nitrogen/Creatinine [Mass ratio]18.8 mg/mgNormalThe Samaritan HospitalComment on above:Performed By: #### T4, TSH, LIPID, CMP, FT3 #### [facility] [address] [place] [address] Dr. Enrique Zamora 06-10-0485N7 [Mass/Vol]10.30 ug/dLNormal4.80-13.90The [facility]itan HospitalComment on above:Performed By: #### T4, TSH, LIPID, CMP, FT3 #### [facility] [address] [place] [address] Dr. Enrique Aleman 74-61-4063WLY0.847 uIU/mLNormal0.358-3.740City HospitalComment on above:Performed By: #### T4, TSH, LIPID, CMP, FT3 #### [facility] [address] [place] [address] Dr. Enrique ParkinsonVITAMIN D 25 OHon 14-35-5167HPH D 25-OH35.8 ng/mLNormalCity HospitalComment on above:Performed By: #### VITAD #### [facility] [address] [place] [address] Dr. Enrique Navarro D RANGESSEE BELOWNoKettering Health – Soin Medical CenterComment on above: Result Comment: <20 ng/mL Vit D deficient 20 - <30 ng/mL Vit D insufficient 30 - 100 ng/mL Vit D sufficient >100 ng/mL Potential ToxicityPerformed By: #### VITAD #### [facility] [address] [place] [address] Dr. Enrique ParkinsonCovid-19 PCR (CVDTBH)on 68-78-1827KYLV-CoV-2 (COVID-19) RNA RENATO+probe Ql (Unsp spec)Not detectedNormalNOT DETECTEDCity Hospital Comment on above:Result Comment: This test is not yet approved or cleared by the [place] FDA. When there are no FDA-approved or cleared tests available, and other criteria are met, FDA can make tests available under an emergency access mechanism called an Emergency Use Authorization (EUA). The EUA for this test is supported by the [place] of Health and Human Service's (HHS's) declaration [...] consistent with SARS-CoV-2.Performed By: #### CVDTBH #### [facility] [address] [place] [address] Dr. Enrique AlbertoMATIC COVID-19 ANTIGENon 30-98-7905ZCQ StatementSEE BELOW NormalOhioHealth Hardin Memorial Hospital on above:Result Comment: This test has not [...] is revoked sooner.Performed By: #### CVDAGS #### [facility] [address] [place] [address] Dr. Enrique Gomez-CoV-2 (COVID-19) RNA RENATO+probe Ql (Unsp spec)NegativeNormal NEGATIVEThe Samaritan HospitalComment on above:Performed By: #### CVDAGS #### [facility] [address] [place] [address] Dr. Enrique Cardona ACOG PANEL 2: 30 to 65on 11-19-2021..NormalThe Samaritan HospitalComment on above:Result Comment: Performed at: WBPerformed By: #### CVDAGS #### [facility] [address] [place] [address] Dr. Enrique Salazar Gdln ACOG Lkieloi18-84CqsgaiKpfKettering Health – Soin Medical CenterComment on above:Performed By: #### CVDAGS #### [facility] [address] [place] [address] Dr. Enrique ParkinsonDIAGNOSIS:CommentNormOhioHealth Hardin Memorial HospitalComment on above: Result Comment: NEGATIVE FOR INTRAEPITHELIAL LESION OR MALIGNANCY. Performed at: WBPerformed By: #### CVDAGS #### [facility] [address] [place] [address] Dr. Enrique ParkinsonHPV AptimaNegativeNormalNegativeThe [facility] on above:Result Comment: This nucleic acid amplification test detects fourteen high-risk HPV types (16,18,31,33,35,39,45,51,52,56,58,59,66,68) without differentiation. Performed at: =GPerformed By: #### CVDAGS #### [facility] [address] [place] [address] Dr. Enrique ParkinsonMethodology:CommentCenterville on above: Result Comment: This liquid based ThinPrep(R) pap test was screened with the use of an image guided system. Performed at: WBPerformed By: #### CVDAGS #### [address] [address] [address] Enrique ParkinsonNote:CommentCenterville on above:Result Comment: The Pap smear is a screening test designed to aid in the detection of premalignant and malignant conditions of the uterine cervix. It is not a diagnostic procedure and should not be used as the sole means of detecting cervical cancer. Both false-positive and false-negative reports do occur. . Performed at: WBPerformed By: #### CVDAGS #### [facility] [address] [place] [address] Dr. Enrique ParkinsonPerformed by:CommentCenterville on above: Result Comment: Katarina Robbins, Recreation Superintendent (ASCP) Performed at: WBPerformed By: #### CVDAGS #### [facility] [address] [place] [address] Dr. Enrique ParkinsonSpecimen adequacy:CommentCenterville on above:Result Comment: Satisfactory for evaluation. Endocervical and/or squamous metaplastic cells (endocervical component) are present. Performed at: WBPerformed By: #### CVDAGS #### [facility] [address] [place] [address] Dr. Enrique Parkinson Vital Signs Date TimeVital SignValuePerforming CjqtmxvbmXsxtxpxp42-07-7716 10:210400Body lymmlf882.64 cmRakesh Vernon MD Work Phone: [phone] [place], [place] 9826008-06-2025 10:21-0400 Body mass index (BMI) [Ratio]29.2 kg/a7NrnmraaRakesh Vernon MD Work Phone: [phone] [place], [place] 9826008-06-2025 10:21040 Body zdiane54.21 kgRakesh Vernon MD Work Phone: [phone] [place], [place] 9826008-06-2025 10:21-0400 Diastolic blood obsoisqh04 mm[Hg]Rakesh Vernon MD Work Phone: [phone] [place], [place] 9826008-06-2025 10:21-0400 Heart rate78 /minDbebe Vernon MD Work Phone: [phone]08-06-2025 10:21040 SaO2% (BldA) [Mass fraction]99 %Rakesh Vernon MD Work Phone: [phone] [place], [place] 9826008-06-2025 10:21-0400 Systolic blood sinnrtli797 mm[Hg]Rakesh Vernon MD Work Phone: [phone] [place], [place] 9826003-18-2025 11:30-0400 Diastolic blood gmtgvjul02 mm[Hg]Jono Gonzalez III, MD Work Phone: [facility] [place]03-18-2025 11:30-0400Heart rate61 /min Jono Gonzalez III, MD Work Phone: [facility] [place]03-18-2025 11:30-1272AhE1% (BldA) [Mass fraction]100 %Jono Gonzalez III, MD Work Phone: [facility] [place]03-18-2025 11:30-0400Systolic blood bquymlyc121 mm[Hg]Jono Gonzalez III, MD Work Phone: [facility] [facility] [place]03-18-2025 11:16-0400Respiratory rate 16 /minJono Gonzalez III, MD Work Phone: [facility] [place]03-18-2025 09:53-0400Body temperature 97.3 [degF]Jono Gonzalez III, MD Work Phone: [facility] [place]03-04-2025 06:52-0500Body ilojhf213.1 cmPacc 1 Work Phone: [facility] [place]03-04-2025 06:52-0500Body mass index (BMI) [Ratio]28.25 kg/m2Pacc 1 Work Phone: [facility] [place]03-04-2025 06:52-0500Body temperature 98.1 [degF]Pacc 1 Work Phone: [facility] [place]03-04-2025 06:52-0500Body akqjtz70 kg Pacc 1 Work Phone: [facility] [place]03-04-2025 06:52-0500Diastolic blood mcjyvrnf99 mm[Hg]Pacc 1 Work Phone: [facility] [place]03-04-2025 06:52-0500Heart rate55 /min Pacc 1 Work Phone: [facility] [place]03-04-2025 06:52-0500Respiratory rate 14 /minPacc 1 Work Phone: [facility] [place]03-04-2025 06:52-4679NcO0% (BldA) [Mass fraction]100 %Pacc 1 Work Phone: [facility] [place]03-04-2025 06:52-0500Systolic blood yckekwtz006 mm[Hg]Pacc 1 Work Phone: [facility] [place]02-28-2025 09:54-0500Body zuuxdy718.6 cmJosen Gonzalez III, MD Work Phone: [facility], [place]Comment on above:-[phone] 09:54-0500Body mass index (BMI) [Ratio]27.79 kg/m2Jono Gonzalez III, MD Work Phone: [facility] [place]02-28-2025 09:54-0500Body eghbgp85.1 kgJosen Gonzalez III, MD Work Phone: [facility] [place]02-28-2025 09:54-0500Diastolic blood gnymqqjy08 mm[Hg]Jono Gonzalez III, MD Work Phone: [facility] [place]02-28-2025 09:54-0500Heart rate75 /min Jono Gonzalez III, MD Work Phone: [facility] [place]02-28-2025 09:54-4662ZbJ1% (BldA) [Mass fraction]99 %Jono Gonzalez III, MD Work Phone: [facility] [place]02-28-2025 09:54-0500Systolic blood vyjeulrk438 mm[Hg]Jono Gonzalez III, MD Work Phone: [facility] [place]01-28-2025 13:18-0500Body sjumkz70.2 kgSujosef Pelayo MD Work Phone: [facility] [place]01-28-2025 13:18-0500Diastolic blood mm[Hg]Elgin Pelayo MD Work Phone: [facility] [place]01-28-2025 13:18-0500Heart rate83 /min Elgin Pelayo MD Work Phone: [facility] [place]01-28-2025 13:18-4437HpB4% (BldA) [Mass fraction]100 %Elgin Pelayo MD Work Phone: [facility] [place]01-28-2025 13:18-0500Systolic blood egualfjq204 mm[Hg]Elgin Pelayo MD Work Phone: [facility] [place]11-25-2024 14:23-0500Body jnucwu567.6 cmTlai Briscoe MD Work Phone: noMadison Medical CenterDownmviyim42-80-5123 14:23-0500Body mass index (BMI) [Ratio]25.82 kg/m2Breann Briscoe MD Work Phone: noms Rerrynhibv85-47-9272 14:23-0500Body uqdhje48.58 kgBreann Briscoe MD Work Phone: noMadison Medical CenterHlgtvzagru21-55-1551 09:35-0400Diastolic blood rimuieyl49 mm[Hg]Dave Penny DO Work Phone: noMadison Medical CenterZipownugym22-09-0985 09:35-0400Heart rate78 /min Dave Penny DO Work Phone: noMadison Medical CenterZnlscdygod97-71-0632 09:35-4517UrT7% (BldA) [Mass fraction]99 %Dave Penny DO Work Phone: noMadison Medical CenterDawefmissy14-00-7212 09:35-0400Systolic blood tnozipfi378 mm[Hg]Dave Penny DO Work Phone: [facility] CenterZffxdysfwy94-97-5483 10:27-0500Diastolic blood mm[Hg]Aruba Dennison DO Work Phone: [phone] [place], [place] 5673301-23-2024 10:27-0500 Heart rate77 /minAruba Dennison DO Work Phone: [phone] [place], [place] 5673301-23-2024 10:27-0500 SaO2% (BldA) [Mass fraction]98 %Aruba Dennison DO Work Phone: [phone]01-23-2024 10:27-0500 Systolic blood itnkwyol840 mm[Hg]Aruba Dennison DO Work Phone: [phone]01-23-2024 08:01-0500 Body wlbcie649.6 cmAruba Dennison DO Work Phone: [phone]01-23-2024 08:01-0500 Body mass index (BMI) [Ratio]29.05 kg/y9Azcdo Dennison DO Work Phone: 1([phone] [place], [place] 5673301-23-2024 08:01-0500 Body tbbyqcedmto43.1 [degF]Aruba Dennison DO Work Phone: 1([phone] [place], [place] 5673301-23-2024 08:01-0500 Body .65 kgAruba Dennison DO Work Phone: [facility]01-23-2024 08:01-0500 Respiratory rate16 /minAruba Dennison DO Work Phone: [facility]06-01-2023 14:45-0400 Body sthysd997.64 cmLkendy Chacko Other [employer] Other 06-01-2023 14:45-0400Body mass index (BMI) [Ratio] 30.18 kg/o7Qfakmx Ginna Other [employer] Other 06-01-2023 14:45-0400Body .8 [degF]Mirta Ginna Other [employer] Other 06-01-2023 14:45-0400Body mxolda20.82 kgMirta Chacko Other [employer] Other 06-01-2023 14:45-0400Respiratory rate18 /minMirta Chacko Other [employer] Other 06-01-2023 14:45-0170LpM7% (BldA) [Mass fraction]98 % Mirta Salazarley Other [employer] Other Encounters Encounter DateEncounter TypeCare ProviderFacilityStart: 02-18-2025 End: 36-01-5466llqnwgkqhhVmohocx M Hoy MD Work Phone: [facility] Work Phone: Start: 02-18-2025 End: 55-94-1034Cthmwcy encounter procedureNeelima Rangel ENTREPRENEURIAL FINANCE PROFESSOR-[facility] [place] Work Phone: Start: 10-16-2024 End: 53-92-6516chsxldbmmhOXKR A COSTIN IIIFacility:[facility] Start: 10-16-2024 End: 51-56-2786Ounybsb encounter procedureJono Gonzalez MD Work Phone: General SurgeryComment on above:Post-operative state (Primary Dx)Start: 10-02-2024 End: 87-03-4289Pmrjbrzmk encounterLoree Mona CARDENAS Work Phone: General SurgeryStart: 51-45-9264fbograzawaHPWK A COSTIN IIIFacility:[facility] Hospitaltart: 09-30-2024 End: 14-87-0436Jmsikarqji hospital visit by Eric Gonzalez MD Work Phone: Ambulatory SurgeryComment on above:Calculus of gallbladder without cholecystitis without obstruction [K80.20]Start: 09-16-2024 End: 16-62-9505Z-mail encounter from John Moreland APRN.CNP Work Phone: pre AnesthesiaStart: 09-16-2024 End: 56-47-6831Tkggyohse to establishmentPacc Alee 1 Work Phone: pre AnesthesiaStart: 09-16-2024 End: 00-15-3462zauoonxjosWEDJ A COSTIN IIIFacility:[facility] Start: 09-16-2024 End: 33-24-2150Atjbaxlxoj consultationPacc Bertram 1 Work Phone: Pre AnesthesiaComment on above:Pre-op examination (Primary Dx); Uncomplicated asthma, unspecified asthma severity, unspecified whether persistent; Pure hypercholesterolemia, unspecified; Hypertension, unspecified type; Sleep apnea, unspecified type; Biliary calculus of other site without obstruction; Hypothyroidism, unspecified typeStart: 33-92-7580Xpermnlek for other preprocedural examinationJONO GONZALEZ IIIMercy HealthStart: 09-16-2024 End: 30-67-7439Gckxxwjsjfunt examination donePacc Bertram 1 Work Phone: [facility] [place] Work Phone: Start: 09-15-2024 End: 17-97-5898Byxbzbbsh encounterJono Gonzalez MD Work Phone: General SurgeryComment on above:Schedule SurgeryStart: 09-12-2024 End: 60-59-1925Voawqaz encounter procedureJono Gonzalez MD Work Phone: General SurgeryComment on above:Calculus of gallbladder without cholecystitis without obstruction (Primary Dx)Start: 09-12-2024 End: 35-76-0834mntcqpeqjhKARO A COSTIN IIIFacility:[facility] Start: 09-11-2024 End: 19-55-4424Irohiqbdd encounterShweta Hsu RN Work Phone: General SurgeryStart: 39-51-7584yvuefzaxjtXlizxytq:GS BellevueStart: 08-14-2024 End: 37-32-8363Jpnojqjnv encounterSjair Pelayo MD Work Phone: Pulmonary MedicineComment on above:Image requestStart: 08-12-2024 End: 98-37-1585lifmmlxpniGFISD R PANDITFacility:[facility] Hospitaltart: 08-12-2024 End: 23-65-3070Lqbszsg encounter procedureSjair Pelayo MD Work Phone: Pulmonary MedicineComment on above:Severe persistent asthma without complication (Primary Dx); Shortness of breathStart: 07-02-2024 End: 95-08-3504Blofzjfmz encounterNicole Penny DO Work Phone: [facility] STATE ROUTEStart: 06-18-2024 End: 12-64-8715adlyqeplbxRyptges J DittyFacility:[facility] Hospitaltart: 06-09-2024 End: 07-33-9488Pobldo outpatient new 45 minutesToalphonse Briscoe MD Work Phone: [facility] SWS ALLComment on above:Wheeze (Primary Dx); Chronic rhinitis; Recurrent sinus infectionsStart: 06-09-2024 End: 47-26-5315ubmrkewaeyHHER E RAMBASEKNot AvailableStart: 06-09-2024 End: 72-82-8697Acqbtp flowsheetToalphonse Briscoe MD Work Phone: [facility] SWS ALLStart: 06-09-2024 End: 62-28-2635Bqcowl flowsheetToalphonse Briscoe MD Work Phone: [facility] SWS ALLStart: 06-09-2024 End: 31-11-4152Unvltg OnlyTodd E Rachna MILES Work Phone: [facility] External Department UnsolicitedStart: 05-22-2024 End: 86-48-2764Kgsobx OnlyNot In System Ref ProvProMedica Physicians General SurgeryStart: 05-15-2024 End: 97-28-2617Nbytgtlze encounterRegmario Mack RMAProMedica Physicians General SurgeryStart: 04-16-2024 End: 50-14-3530Cikswj flowsheetNicole Penny DO Work Phone: NOZT [address] STATE ROUTEStart: 04-16-2024 End: 15-30-5266Xiesfa flowsheetNicole Penny DO Work Phone: noms [address] R[address]TEStart: 04-16-2024 End: 87-87-9505dkiubqpbxgLAVRJR DANNERNot AvailableStart: 04-16-2024 End: 24-24-5223Hdhoon outpatient visit 25 minutesNicole Penny DO Work Phone: noms [address] R[address]TEComment on above:Hypersomnia (Primary Dx); JANIS (obstructive sleep apnea); Snoring; Memory lossStart: 08-07-2023 End: 35-23-7145Jjmvhnfin department patient visitArcynthia Dennison DO Work Phone: [facility] Emergency MedicineComment on above:Fall, initial encounter (Primary Dx); Closed head injury, initial encounterStart: 12-14-2022 End: 51-50-2957yzpxlipzoxDfgvmj Bailey Other [facility] [employer] Other Start: 92-00-3504Kgrder outpatient new 30 minutes Mirta JarrellG Urgent Care ClydeStart: 12-22-6615Awfofpacy for general adult medical examination without abnormal findingsDR RAKESH VICTORIAAdams [facility] Hospital Start: 08-08-2022 End: 27-44-7289wywppfcqjuLJ RAKESH HOYFacility:B4Tfbxv: 08-08-2022 End: 04-40-7828Ooiwummdb for general adult medical examination without abnormal findingsDR RAKESH HOYFacility:O4Ixctb: 02-27-2022 End: 36-73-9318ilmckasjlxIB RAKESH HOYFacility:T1Wxclp: 01-04-2022 End: 38-55-9095nmusbhdeddHY RAKESH HOYFacility:F8Wtzgw: 11-14-2021 End: 84-15-3893bemcuwmiwwND RAKESH HOYFacility:S9Xkqrd: 10-07-2021 End: 86-19-7049myclballcwQZ RAKESH HOYFacility:H1 Procedures DateProcedureProcedure DetailPerforming ClinicianStart: 40-42-1484Zgh routine ecg w/least 12 lds i&r onlyCcf ProviderStart: 09-30-2024 End: 43-27-3492Zywm surg cholecystectomy w/cholangiographyJono Gonzalez MD Work Phone: Start: 65-42-2899Yjbclgof diphtheriaTodbrian Briscoe MD Work Phone: Start: 88-71-3052Exemb of gammaglobulin iga igd igg igm eachBreann Briscoe MD Work Phone: Start: 70-79-4963Zhayeqzg blood count with white cell differential, automatedBreann Briscoe MD Work Phone: Start: 16-57-0121POIVBFMTCNJQ AB (23 SEROTYPE)Breann Briscoe MD Work Phone: Start: 81-76-1850IKUNXBSV LABSNot In System Ref Prov Start: 79-77-2441GU CERVICAL SPINE WO IV CONTRASTDOUGLAS HOYStart: 18-13-4956XK THORACIC SPINE WO IV CONTRASTDOUGLAS HOYStart: 31-44-7420JS HEAD WO IV CONTRAST RAKESH HOYStart: 75-67-4915IIO 12-LEADDOUGLAS HOYStart: 51-55-9796DPY W Auto Differential panel - BloodDOUGLAS HOYStart: 27-90-1971Lthoezlwnqcen metabolic 2000 panel - Serum or PlasmaDOUGLAS HOYStart: 23-99-5992TZUZUZK-INRDOUGLAS HOY Start: 20-36-7467Ri cervical spine w/o contrast materialAngela C Sales DO Work Phone: Start: 65-00-0737Nk head/brain w/o contrast material Neelima C Sales DO Work Phone: Start: 92-60-0703Oaq routine ecg w/least 12 lds trcg only w/o i&rAngela C Sales DO Work Phone: Start: 57-14-9534Faxyltrgyfjlm metabolic panelAngela C Sales DO Work Phone: Start: 00-04-3980CapxwmmwjagDhosfn Penny DO Work Phone: Plan of Treatment DateCare ActivityDetailAuthorStart: 71-22-8009Vpsuv microalbumin profile DTaP,Tdap,Td Vaccine (2 - Td or Tdap)[facility] Hospitaltart: 59-01-2261Asxfslaz ScreeningDiabetes ScreeningMercy Health Lorain Hospitaltart: 65-68-3407Qsmnktzij vaccinationInfluenza VaccineWadsworth-Rittman Hospital SystemStart: 11-10-2024 End: 68-30-1174Obcjcnr encounter dywyzyheu98/28/2025 2:00 PM EDT Office Visit Pulmonary Medicine [address] [place], [place] [id number] Jazmyne Liu, NOELLE.BREASTFEEDING PEER COUNSELOR [address] [facility] [place] [address] Return in about 3 months (around 11/10/2024).Pulmonary MedicineComment on above:Return in about 3 months (around 11/10/2024).Start: 11-10-2024 End: 94-07-8522fimpoqzgjqNtqlonxgz LabComment on above:Severe persistent asthma without complication [J45.50]Start: 10-16-2024 End: 41-82-6029Aykezqi encounter grrfghyvm79/03/2025 8:30 AM EDT Office Visit General Surgery [address] [place] [address] Jono Gonzalez III, MD [address] [place] [address] POST OP LAP [place] W GRAMSGeneral SurgeryComment on above:POST OP LAP [place] W GRAMSStart: 09-30-2024 End: 12-38-4038Sobkachxs to same day surgery mbcxuf6409/30/2024 10:30 AM EDT - 09/30/2024 11:35 AM EDT Surgery Ambulatory Surgery [address] [facility] [place] [address] Jono Gonzalez III, MD [address] [place] [address] LAPAROSCOPIC CHOLECYSTECTOMY WITH GRAMSAmbulatory SurgeryComment on above:LAPAROSCOPIC CHOLECYSTECTOMY WITH GRAMS Start: 09-30-2024 End: 35-67-8413Eefl surg cholecystectomy w/cholangiographyLAPAROSCOPIC CHOLECYSTECTOMY WITH GRAMS Calculus of gallbladder without cholecystitis without obstruction 09/30/2024 10:30 AM EDTMC ASC LORAINStart: 02-98-6097Rmyriijjkg hospital visit by qridqdiwx40/18/2025 10:30 AM EDT Hospital Encounter Ambulatory Surgery [address] [facility] [place] [address] Jono Gonzalez III, MD [address] [place] [address] Calculus of gallbladder without cholecystitis without obstruction [K80.20] Ambulatory SurgeryComment on above:Calculus of gallbladder without cholecystitis without obstruction [K80.20]Start: 09-12-2024 End: 41-05-6957Tqtpkiy encounter mnwnjqiuj27/28/2025 12:00 PM EST Office Visit General Surgery [address] [facility] [address] Jono Gonzalez III, MD [address] [facility] [place] [address] CholelithiasisGeneral SurgeryComment on above:CholelithiasisStart: 07-03-2024 End: 05-42-1398Tucnsgm encounter mptkadprh98/19/2024 2:20 PM EST Office Visit [facility] [address] [place] [phone] Breann Briscoe MD [address] [facility] [address] [place] [address] [facility] ALLStart: 88-32-5517Yeonzyxrl for malignant neoplasm of breastMammogramNOLA HealthcareStart: 06-09-2024 End: 25-33-8634Zdzswsm encounter fxfzuaozt91/25/2024 2:40 PM EST Office Visit [facility] [address] [facility] [address] [place] [id number] Breann Briscoe MD [address] [facility] [address] [place] [address] ArrivedMADISON HOSPITAL ALLComment on above:ArrivedStart: 06-09-2024 End: 22-33-0950NKM W Auto Differential panel - BloodCBC and differential Lab Routine Recurrent sinus infections Expected: 06/09/2024 (Approximate), Expires: 06/09/2025NOLA HealthcareComment on above:Expected: 06/09/2024 (Approximate), Expires: 06/09/2025Start: 06-09-2024 End: 03-09-4955Giweeuvedk / Tetanus Antibody PanelDiphtheria / Tetanus Antibody Panel Lab Routine Recurrent sinus infections Expected: 06/09/2024 (Approximate), Expires: 06/09/2025NOLA HealthcareComment on above:Expected: 06/09/2024 (Approximate), Expires: 06/09/2025Start: 06-09-2024 End: 21-82-7730ScA [Mass/volume] in Serum or PlasmaIgA Lab Routine Recurrent sinus infections Expected: 06/09/2024 (Approximate), Expires: 06/09/2025NOLA HealthcareComment on above:Expected: 06/09/2024 (Approximate), Expires: 06/09/2025Start: 06-09-2024 End: 50-59-6062EcT [Units/volume] in Serum or PlasmaIgE Lab Routine Recurrent sinus infections Expected: 06/09/2024 (Approximate), Expires: 06/09/2025NOLA HealthcareComment on above:Expected: 06/09/2024 (Approximate), Expires: 06/09/2025Start: 06-09-2024 End: 53-53-2960TxI [Mass/volume] in Serum or PlasmaIgG Lab Routine Recurrent sinus infections Expected: 06/09/2024 (Approximate), Expires: 06/09/2025NO Healthcare Work Phone: Comment on above:Expected: 06/09/2024 (Approximate), Expires: 06/09/2025Start: 06-09-2024 End: 45-80-2484BaW [Mass/volume] in Serum or PlasmaIgM Lab Routine Recurrent sinus infections Expected: 06/09/2024 (Approximate), Expires: 06/09/2025 HealthcareComment on above:Expected: 06/09/2024 (Approximate), Expires: 06/09/2025Start: 06-09-2024 End: 19-21-0095Kulibli toxoid, IgGTetanus toxoid, IgG Lab Routine Recurrent sinus infections Expected: 06/09/2024 (Approximate), Expires: 06/09/2025NOLA HealthcareComment on above:Expected: 06/09/2024 (Approximate), Expires: 06/09/2025Start: 05-28-2024 End: 58-16-4283Ocubduf encounter awazovxwj56/13/2024 4:00 PM EST Office Visit [facility] [address] [place] [address] Jennifer Jennings PA [address] [place] [address] [facility] BCP OBStart: 06-41-1699Icyma-19 Vaccine ( season)Covid-19 Vaccine ( season)[facility] Hospitaltart: 03-16-2024 Influenza vaccinationSaint John's Breech Regional Medical CenterStart: 37-36-3086Rmstvcfid vaccination Influenza Vaccine (#1)[facility]: 77-53-0907JCMAP-19 Vaccine (3 - Pfizer series)COVID-19 Vaccine (3 - Pfizer series)[facility]: 99-87-5045Arsrrnthunkuod of varicella zoster vaccineZoster (Shingles) Vaccine (1 of 2)[facility]: 22-28-5411Csnmpamnamut Vaccine: 50+ (1 of 1 - PCV)Pneumococcal Vaccine: 50+ (1 of 1 - PCV)[facility]: 21-72-3203Zlpagzzg Vaccine (1 of 2)Shingrix Vaccine (1 of 2)[facility]: 11-97-6018Fwrzxs Vaccines (1 of 2)Zoster Vaccines (1 of 2)[facility]: 51-23-2699Okpol panel Lipid ScreeningMercy Health Lorain Hospitaltart: 32-10-9874Bjqcxywcf for malignant neoplasm of colonMercy Health Lorain Hospitaltart: 67-98-2490Tvlxifhkj for malignant neoplasm of breastUnCleveland Clinic Foundation: 50-05-3598Shgwhsiyo for malignant neoplasm of cervixSaint John's Breech Regional Medical CenterStart: 53-72-5981KFeU/Tdap/Td Vaccines (1 - Tdap)DTaP/Tdap/Td Vaccines (1 - Tdap)[facility]: 02-08-2675Ullocskmx for malignant neoplasm of cervixOhioHealth Grove City [facility] Hospital: 52-40-3485MGxM,Tdap and Td Vaccines (1 - Tdap)DTaP,Tdap and Td Vaccines (1 - Tdap)[facility]: 05-55-8262Luomfpaga B Vaccine (1 of 3 - 19+ 3-dose series)Hepatitis B Vaccine (1 of 3 - 19+ 3-dose series) [facility]: 58-87-7120Kkwfw microalbumin profileDTaP,Tdap,Td Vaccine (1 - Tdap)[facility]: 14-03-4002Ghkrz BMI ScreeningAdult BMI ScreeningProMartins Ferry Hospitaltart: 67-48-8944Ddbdhi PCP Team Chronic Disease VisitAnnual PCP Team Chronic Disease VisitMercy Health Lorain Hospitaltart: 1983 Anxiety ScreeningAnxiety ScreeningMercy Health Lorain Hospitaltart: 20-66-8913EW Controlled (<130/80)BP Controlled (<130/80)[facility]: 93-86-7373Qnwpowrpzc ScreeningDepression ScreeningMercy Health Lorain Hospitaltart: 84-22-8193Wugkmmcj mellitus screeningDiabetes ScreeningOhioHealth Grove City [facility] Hospital: 1983 Hepatitis C screeningHepatitis C ScreeningMercy Health Start: 29-97-4131UBT screeningHIV ScreeningMercy Health Lorain Hospitaltart: 1983 SpirometrySpirometryMercy Health Lorain Hospitaltart: 21-39-8308Cgsoylhnwi Screening Depression ScreeningAtrium Health Mountain Islandtart: 34-74-8422Qdnufkt Screening Tobacco ScreeningProMartins Ferry Hospitaltart: 66-14-6913FFH Vaccines (1 of 1 - Standard series)MMR Vaccines (1 of 1 - Standard series)[facility]: 14-66-5971Ouqfcbgdo B Vaccines (1 of 3 - 3-dose series)Hepatitis B Vaccines (1 of 3 - 3-dose series)[facility]: 45-16-3909SQH screeningHIV ScreeningOhioHealth Grove City [facility] Hospital: 80-12-3687Lssip panelLipid PanelOhioHealth Grove City Methodist Hospital: 41-57-8363Vpucnfzsd for malignant neoplasm of colonOhioHealth Grove City [facility] Hospital: 38-13-5313Pbmevg Adult PhysicalYearly Adult PhysicalMercy HealthEC 12 leadECG 12 lead ECG STAT 08/07/2023 8:33 AM [facility] Service Area Work Phone: End: 94-40-1736RAN [facility] Work Phone: Comment on above:ONCE for 1 Occurrences starting 09/30/2024 until 09/30/2024 End: 12-95-5862QBJBFJ OXIDE, EXHALEDNITRIC OXIDE, EXHALED PFT Routine Severe persistent asthma without complication 1 Occurrences starting 08/12/[address] [place] [address] Work Phone: Comment on above:1 Occurrences starting 08/12/2024 until 09/12/2025 End: 19-36-2273UGDIMMFCTI WITH DILATOR IF OBSTRUCTEDSPIROMETRY WITH DILATOR IF OBSTRUCTED PFT Routine Severe persistent asthma without complication 1 Oc currences starting 08/12/2024 until 09/12/2025[facility] ClinicComment on above:1 Occurrences starting 08/12/2024 until 09/12/2025STREPTOCOCCUS PNEUMONIA AB (IGG) (23 SEROTYPES)STREPTOCOCCUS PNEUMONIA AB (IGG) (23 SEROTYPES) Lab Routine Recurrent sinus infections Ordered: 06/09/2024NOLA HealthcareComment on above: Ordered: 06/09/2024Tissue Pathology biopsy reportUniversity Hospitals Samaritan Medical Center Work Phone: Comment on above:Release Upon Ordering for 1 Occurrences starting 09/30/2024, 1 completed Payers DatePayer CategoryPayerPolicy [id number] General [id number] 36-96-2118SbplCibola General Hospital Managed Care - OtherOAKLAWN [facility] [id number] 1.2.840.310032.1.13.647.2.7.3.906[id number] 2.16.840.1.990399.3.57[id number] 2.16.840.1.551842.3.579.[id number] 2.16.840.1.652381.3.57[id number] 2.16.840.1.291804.3.579.[id number] 2.16.840.1.404921.3.579.[id number] 2.16.840.1.959718.3.579.[id number] 2.16.840.1.659542.3.579.[id number] 2.16.840.1.102594.3.579.2.397978-64-5125Vfcs-wft22760113914-98-9432Xzqhcle [id number] 2.16840.1.567261.3.579.2.531 Social History DateTypeDetailFacilityUnknown if ever smokedNocenterpoint medical center [employer] Other Start: 04-16-2024 End: 39-91-7479Rtc Assigned At BirthNew Haven [employer] Other Tobacco smoking status NHISTobacco smoking consumption unknownWadsworth-Rittman Hospital SystemStart: 23-55-4411Csr Assigned At BirthNot on file [facility] Work Phone: Start: 07-28-2023 End: 81-40-7356Ttwmixkj to SARS-CoV-2 (event)Not [facility] Work Phone: Start: 04-16-2024 End: 88-70-9412Ubkrehp smoking status NHISNever smoked tobaccoSPANISH [facility]K [facility] Healthcare Start: 04-16-2024 End: 11-13-0608Kytdgub of Social functionNOLA HealthcareStart: 22-93-1338Mhw assigned at birthFeEssex Hospital HealthcareStart: 36-08-5239Sogkzk identityIdentifies as female gender (finding)[facility] HealthcareStart: 48-75-8568Qiucbp orientation Heterosexual (finding)[facility] HealthcareStart: 43-60-9000Eyieflx use and exposure Smokeless tobacco non-userSelect [facility] [place]woodNational Score (1-100), lower number is lower [id number] Health Lorain Hospitaltart: [id number] (finding)[facility] SystemStart: 09-16-2024 End: [id number] beverage intakeLifetime non-drinker (finding)[facility] [place] Clinical Notes 12-14-2022 to 10-16-2024 Note Date & [id number] NoteHNO ID: [id number] Author: JONO GONZALEZ III, MD Service: ? [...] Return to office PRN. Jono Gonzalez III, [facility]04-03-2025 History of Present illness Narrative* Jono [...] Jono Gonzalez III, MD documented in this encounterSelect Medical [facility] [place]03-[place]-2025 Telephone encounter Note * Telephone Encounter - [...] then would need to be off longer. [facility] [place] Work Phone: [phone] Miscellaneous Notes* Telephone Encounter - Shweta Hsu [...] to be off longer. documented in this encounterSelect Medical [facility] [place]03-18-2025 NoteHNO ID: [id number] Author: GOSIA SÁNCHEZ RN Service: ? Author Type: Registered Nurse Type: Nursing Progress Note Filed: 09/30/2024 11:50 Note Text: Dr. Elise has cleared pt for discharge. EKG WNL. Chest heaviness is gone. [facility]03-18-2025 Nurse Note* Gosia Sánchez RN - 09/30/2024 11:[address] Elise has cleared pt for discharge. EKG WNL. Chest heaviness is gone. [facility] [place]03-18-2025 Nurse Note* Gosia Sánchez RN - 09/30/2024 11:[address] Elise has cleared pt for discharge. EKG WNL. Chest heaviness is gone. * Gosia Sánchez RN - 09/30/2024 11:14 AM EDT C/O chest heaviness. VSS. O2 on at 2L. H/O recent chest heaviness. VT ruled out. documented in this encounterSelect Medical [facility] [place]03-18-2025 NoteHNO ID: [id number] Author: GOSIA SÁNCHEZ RN Service: ? Author Type: Registered Nurse Type: Nursing Progress Note Filed: 09/30/2024 11:16 Note Text: C/O chest heaviness. VSS. O2 on at 2L. H/O recent chest heaviness. VT ruled out.[facility]03-18-2025 Nurse Note* Gosia Sánchez RN - 09/30/2024 11:14 AM EDT C/O chest heaviness. VSS. O2 on at 2L. H/O recent chest heaviness. VT ruled out. [facility] [place]03-18-2025 NoteHNO ID: [id number] Author: EUSEBIO VENEGAS APRN.VP PRODUCT Service: Anesthesiology Author Type: Nurse Lobby Porter Type: Anesthesia Procedure Notes Filed: 09/30/2024 09:30 Note Text: ANESTHESIOLOGY PROCEDURE NOTE Airway General Information Procedure Start Time/Medication Administration: 09/30/2024 9:19 AM Procedure End Time: 09/30/2024 9:19 AM Patient location during procedure: OR Patient identity confirmed: arm band and patient Staffing VP PRODUCT: Eusebio Venegas APRN.VP PRODUCT Performed by: VP PRODUCT Indications and Patient Condition Indications for airway [...] 1 Airway not difficult SIGNATURE: Eusebio Venegas APRN.VP PRODUCT PATIENT NAME: Praveena Dacosta DATE: September 30, 2024 TIME: 9:30 AM CSN: [id number] Health03-18-2025 Surgery Surgical operation note* Operative Report - Jono Gonzalez III, MD - 09/30/2024 9:12 AM EDT OPERATIVE REPORT LOG ID: [id number] SURGERY/PROCEDURE DATE: 09/30/2024 INCISION/PROCEDURE START TIME: 9:27 AM INCISION CLOSE/PROCEDURE END TIME: 9:44 AM SURGEON: Jono Gonzalez III, MD CYBER DEFENSE FORENSICS ANALYST: Yesenia Monson PA-C OPERATION: Laparoscopic cholecystectomy (77369). ANESTHESIA: GETA and 20 mL of 0.5% [...] DATE: September 30, 2024 TIME: 9:45 AM [facility] [place]03-18-2025 Surgical operation note* Operative Report - Jono Gonzalez III, MD - 09/30/2024 9:12 AM EDT OPERATIVE REPORT LOG ID: [id number] SURGERY/PROCEDURE DATE: 09/30/2024 INCISION/PROCEDURE START TIME: 9:27 AM INCISION CLOSE/PROCEDURE END TIME: 9:44 AM SURGEON: Jono Gonzalez III, MD CYBER DEFENSE FORENSICS ANALYST: Yesenia Monson PA-C OPERATION: Laparoscopic cholecystectomy (30925). ANESTHESIA: GETA and 20 mL of 0.5% [...] 2024 TIME: 9:45 AM documented in this encounterSelect Medical [facility] [place]03-18-2025 History and physical note * Jono Gonzalez [...] DATE: September 30, 2024 TIME: 8:39 AM [facility] [place]03-18-2025 History and physical note* Jono Gonzalez III, [...] 2024 TIME: 8:39 AM documented in this encounterSelect Medical [facility] [place]03-18-2025 Hospital Discharge instructions* Discharge Instr - Other [...] per day. We also recommend taking an typl-iue-aqkajkc stool softer (ie Colace). For questions or concerns occurring immediately post-operatively regarding your IV site, intubation(ie: sore throat, teeth/mouth issues), urinary issues, or anything else not related to the surgicalsite: CALL THE FACILITY WHERE YOUR PROCEDURE WAS DONE [facility] Operating Room: [facility]: CALL THE OFFICE If you have any questions or concerns. CALL IMMEDIATELY IF YOU HAVE NAUSEA/VOMITING, FEVER GREATER THAN 101, INCREASED ABDOMINAL PAIN, INCREASED PAIN, BULGING OR REDNESS AROUND THE INCISION, OR A NEWONSET OF PUS DRAINAGE FROM THE WOUND. Contact my office at [phone] to arrange a follow up appointment in 14-21 days. Jono Gonzalez III, MD documented in this encounterSelect Medical [facility] [place]03-04-2025 Telephone encounter Note * Telephone Encounter - Geovany Moreland APRN.BREASTFEEDING PEER COUNSELOR - 09/16/2024 1:37 PM EST Hi , It was a pleasure seeing you this morning in the Pre-Anesthesia Clinic. I wanted to help with your request to establish care with a primary care physician at [facility]. Unfortunately, many of the physicians at that location are not currently accepting new patients. You can reach the [facility] Scheduling number at [phone], and they may be able to help you find aphysician who is accepting new patients. Additionally, I ve heard that the [place] location ([place] few miles further [place]) has primary care providers with availability, and their contact number is [phone]. I hope this helps, and feel free to reach out if you need anything further! Best regards, Geovany Moreland APRN.CNP [facility] [place]03-04-2025 Miscellaneous Notes* Telephone Encounter - Geovany Moreland APRN.CNP - 09/16/2024 1:37 PM EST Hi , It was a pleasure seeing you this morning in the Pre-Anesthesia Clinic. I wanted to help with your request to establish care with a primary care physician at [facility]. Unfortunately, many of the physicians at that location are not currently accepting new patients. You can reach the [facility] Scheduling number at [phone], and they may be able to help you find aphysician who is accepting new patients. Additionally, I ve heard that the [place] location (a few miles further [place]) has primary care providers with availability, and their contact number is [phone]. I hope this helps, and feel free to reach out if you need anything further! Best regards, Geovany Moreland APRN.CNP documented in this encounterSelect [facility] [place]03-04-2025 Instructions* Patient Instructions* Geovany Moreland APRN.CNP - 09/16/2024 7:21 AM EST PATIENT PREOPERATIVE INSTRUCTIONS Jono Gonzalez III has scheduled you for your procedure at this surgery center: [facility]: [phone] --[address] [place] [address]. Please read below carefully for your personalized instructions. [facility]: [phone] --[address] [facility] [place] [address]. Please enter through the entrance closest to [...] office. If you are currently using a xbua-jhv-wtlm injectable or oral medication for diabetes or [...] Procedures: - YOU MUST HAVE A RESPONSIBLE BUCKLE INSPECTOR TAKE YOU HOME. A WELDER SETTER ELECTRON BEAM MACHINE OR STOCKHOLDER CANNOT BE MADE A RESPONSIBLE BUCKLE INSPECTOR. - We recommend that a responsible person [...] Advance Directive, please fax a copy to [phone] or email to for it to be [...] your chart that day. documented in this encounterSelect [facility] [place]03-04-2025 History and physical note * Geovany Moreland [...] Had COVID infection 08/31/24, was treated at [facility]. Today she is asymptomatic, Lungs CTA, [...] STOP-Bang Score: 0 (JANIS CPAP compliant ) [id number] Score: Age: <65 Sex: female CHF history: No Hypertension history: Yes Stroke/TIA/thromboembolism history: No Vascular disease history: No Diabetes history: No [id number]-[id number] Score: 2 ARISCAT Score: Age: 51-80 Preoperative [...] fevers. Neuro: No history of TIA's, stroke, CUSTOMER SERVICE DISPATCHER tumor, impaired sensorium, hemiplegia, paraplegia or quadraplegia. [...] or incontinence,, stones or chronic kidney disease HEAD OPERATOR SULFIDE: Negative for abnormal vaginal bleeding, abnormal vaginal [...] EKG in Summarization Report in care everywhere [facility] 08/31/24 CMP 08/31/24 Lab Value Units [...] EKG in Summarization Report in care everywhere [facility]) [facility] Test Date: 2024-08-30 Pat Name: PRAVEENA DACOSTA Department: Room: - Gender: Female Drug Regulatory Affairs Specialist: : 1965 Requested By: RAKESH VERNON Order Number: [id number] Reading MD: RAKESH VERNON Measurements Intervals [place] Rate: 96 P: 65 AR: 174 QRS: 88 QRSD: 68 T: 40 [...] Praveena Dacosta DATE: 09/16/2024 TIME: 7:52 AM [facility] [place]03-04-2025 History and physical note* Geovany Moreland APRN.CNP [...] Had COVID infection 08/31/24, was treated at [facility]. Today she is asymptomatic, Lungs CTA, [...] STOP-Bang Score: 0 (JANIS CPAP compliant ) [id number] Score: Age: <65 Sex: female CHF history: No Hypertension history: Yes Stroke/TIA/thromboembolism history: No Vascular disease history: No Diabetes history: No [id number] Score: 2 ARISCAT Score: Age: 51-80 Preoperative [...] fevers. Neuro: No history of TIA's, stroke, CUSTOMER SERVICE DISPATCHER tumor, impaired sensorium, hemiplegia, paraplegia or quadraplegia. [...] or incontinence,, stones or chronic kidney disease HEAD OPERATOR SULFIDE: Negative for abnormal vaginal bleeding, abnormal vaginal [...] EKG in Summarization Report in care everywhere [facility] 08/31/24 CMP 08/31/24 Lab Value Units [...] EKG in Summarization Report in care everywhere [facility]) [facility] Test Date: 2024-08-30 Pat Name: PRAVEENA DACOSTA Department: Room: - Gender: Female Drug Regulatory Affairs Specialist: : 1965 Requested By: RAKESH VERNON Order Number: [id number] Reading MD: RAKESH VERNON Measurements Intervals [place] Rate: 96 P: 65 AR: 174 QRS: 88 QRSD: 68 T: 40 [...] 09/16/2024 TIME: 7:52 AM documented in this encounterSelect [facility] [place]03-03-2025 Telephone encounter Note * Telephone Encounter - Marilou Roger - 09/15/2024 2:16 PM EST Spoke with pt scheduled for surgery. [facility] [place]03-03-2025 Miscellaneous Notes* Telephone Encounter - Marilou Roger - 09/15/2024 2:16 PM EST Spoke with pt scheduled for surgery. * Telephone Encounter - Marilou Roger - 09/15/2024 1:17 PM EST Images from the original note were not included. documented in this encounterSelect [facility] [place]03-03-2025 Telephone encounter Note * Telephone Encounter - Marilou Roger - 09/15/2024 1:17 PM EST Images from the original note were not included. [facility] [place]02-28-2025 History and physical note* Jono Gonzalez III, [...] was discussed with the patient or authorized lead customer service representative. The patient or authorized lead customer service representative has agreed to proceed with the [...] MD cc: Referring provider Elgin Pelayo MD [facility]02-28-2025 History and physical note* Jono Gonzalez III, MD - 09/12/2024 9:53 AM EST Ms. Dacosta is here today at the request of Elgin ePlayo MD for my opinion regarding abdominal pain. [...] was discussed with the patient or authorized lead customer service representative. The patient or authorized lead customer service representative has agreed to proceed with the [...] provider Elgin Pelayo MD documented in this encounterSelect [facility] [place]02-27-2025 Telephone encounter Note * Telephone Encounter - Shweta Hsu RN - 09/11/2024 3:55 PM EST Called referring providers office and spoke with staff to please send a copy of US or CT that denotes gallstones as no imaging available. Office fax number given [facility] [place] Work Phone: [phone] Miscellaneous Notes* Telephone Encounter - Shweta Hsu [...] but nothing showing yet. documented in this encounterSelect [facility] [place]02-27-2025 Telephone encounter Note * Telephone Encounter - [...] done an update but nothing showing yet. [facility] [place]02-04-2025 Telephone encounter Note* Telephone Encounter - Mattie Link MA - 08/19/2024 8:51 AM EST Image has been imported into [employer] and is available to view. [facility] [place]02-04-2025 Miscellaneous Notes* Telephone Encounter - Mattie Link MA - 08/19/2024 8:51 AM EST Image has been imported into [employer] and is available to view. * Telephone Encounter - Mattie Link MA - 08/14/2024 11:49 AM EST Faxed image request to [facility] Confirmation received * Telephone Encounter - Mattie Link MA - 08/14/2024 10:59 AM EST Images from the original note were not included. Elgin Pelayo MD P Ingrid Pulm Nurse Could we try to obtain images of CT chest 02/13/2024 from [facility] in [facility]? Thanks documented in this encounterSelect [facility] [place]01-30-2025 Telephone encounter Note * Telephone Encounter - Mattie Link MA - 08/14/2024 11:49 AM EST Faxed image request to [facility] Confirmation received [facility] [place]01-30-2025 Telephone encounter Note* Telephone Encounter - Mattie Link MA - 08/14/2024 10:59 AM EST Images from the original note were not included. Elgin Pelayo MD P Pulm Nurse Could we try to obtain images of CT chest 02/13/2024 from [facility] in [facility]? Thanks [facility] [place]01-28-2025 Instructions* Patient Instructions* Elgin Pelayo MD - [...] office or send me a message through [employer] if you have any questions. Sincerely, Elgin Pelayo MD documented in this encounterSelect [facility] [place]01-28-2025 History and physical note * Elgin Pelayo MD - 08/12/2024 1:19 PM EST . [facility] [place] - Pulmonology Clinic Initial Visit Note Ms. Dacosta is a 59 year old female who [facility] to the [facility] [place] [facility] [place]. Consultation requested by Rakesh Vernon MD for [...] getting sick again Evaluated for immunodeficiency by Tax Manager Cpa at [facility]. On 06/09/2024. [...] personally reviewed by me Data Reviewed from [facility] (in addition to that noted in HPI, and Past histories above): (Data from patient's OSH mychart shown on phone) CBC: last eos 100 (05/2024) IgE: 45 (wnl) PFT: 08/01/2024 Ratio 75% (normal) FEV1 120%, FVC 125% Reported positive bronchodilator response based on FEF 25-75. RV 129% (high) TLC 133% (high) DLCOc 10 3% (normal) CT Chest: 02/13/2024 (OSH, images unavailable) - [facility] in [facility] Lung: Scattered linear densities and calcifications, chronic scarring is favored. Mild dependent atelectasis. No focal parenchymal infiltrates or significant pulmonary nodules. Pleura: No mass, effusion, pneumothorax Lizeth: Small calcified right hilar lymph nodes. Assessment and Plan: Ms. Dacosta is a 59 year old female who presents to the [facility] [place] [facility] [place] for evaluation of bronchitis. 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 [facility] [place] - Pulmonology Clinic Initial Visit Note Ms. Dacosta is a 59 year old female who presents to the [facility] [place] [facility] [place]. Consultation requested by Rakesh Vernon MD for [...] getting sick again Evaluated for immunodeficiency by Tax Manager Cpa at [facility]. On 06/09/2024. [...] personally reviewed by me Data Reviewed from [facility] (in addition to that noted in HPI, and Past histories above): (Data from patient's OSH mychart shown on phone) CBC: last eos 100 (05/2024) IgE: 45 (wnl) PFT: 08/01/2024 Ratio 75% (normal) FEV1 120%, FVC 125% Reported positive bronchodilator response based on FEF 25-75. RV 129% (high) TLC 133% (high) DLCOc 10 3% (normal) CT Chest: 02/13/2024 (OSH, images unavailable) - [facility] in [facility] Lung: Scattered linear densities and calcifications, chronic scarring is favored. Mild dependent atelectasis. No focal parenchymal infiltrates or significant pulmonary nodules. Pleura: No mass, effusion, pneumothorax Lizeth: Small calcified right hilar lymph nodes. Assessment and Plan: Ms. Dacosta is a 59 year old female who presents to the [facility] [place] [facility] [place] for evaluation of bronchitis. #Recurrent bronchitis #Asthma [...] oral steroids, ultimately deferred -Should keep her yard foreman appointment for follow-up testing -I will attempt to obtain images of her outside hospital CT -Follow-up in 3 months with spirometry and nitric oxide before hand Elgin Pelayo MD Pulmonary and Critical Care Staff [facility] Level 4 documented in this encounterSelect [facility] [place]12-18-2024 Telephone encounter Note * Telephone Encounter - Dave Francis DO - 07/02/2024 12:42 PM EST Needs refill of modafinil [facility] [id number] Miscellaneous Notes* Telephone Encounter - Dave Francis DO - 07/02/2024 12:42 PM EST Needs refill of modafinil called into the sleep clinic documented in this encounterSaint [facility]'s [facility] [id number] History of Present illness Narrative* Breann Briscoe [...] antibiotics. 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 She has occasional wheeze. She has albuterol [...] in 3 weeks. documented in this encounterSaint [facility]'s [facility] CenterUegcvjhbjo06-16-1429 Miscellaneous Notes* Telephone Encounter - DEIDRA Muller - 05/15/2024 2:11 PM EDT I called Praveena and left a message to call me to schedule an appointment and a surgery with Dr. Lundberg. I left my phone number and extension on her voicemail. Dr. Lundberg saw the patient at [facility] on 05/11/24 and would like to [...] would like to do. [facility] encounterOhio[facility] Telephone encounter Note* Telephone Encounter - DEIDRA Muller - 05/15/2024 2:11 PM EDT I called Praveena and left a message to call me to schedule an appointment and a surgery with Dr. Lundberg. I left my phone number and extension on her voicemail. Dr. Lundberg saw the patient at [facility] on 05/11/24 and would like to do a colonoscopy in the next month. [facility]10-31-[facility] Telephone encounter Note* Telephone Encounter - [...] know what she would like to do. [facility]10-02-2024 History of Present illness Narrative* Dave Francis, [...] was counseled on the risks of stroke, VT, and sudden with JANIS, along with the [...] clinic: 3 months documented in this encounterSaint [facility]'s [facility] [id number] Hospital Discharge instructions* Discharge Instructions* Neelima Peralta [...] as needed for pain. [facility] Work Phone: [phone] 945-794806-01-2023 Evaluation note* Encounter Date Diagnosis Assessment Notes [...] resolved. Patient verbalized understanding of treatment plan [employer] Other Evaluation note* Diagnosis Fall, initial encounter- Primary Closed head injury, initial encounter documented in this encounter [facility] Work Phone: Evaluation note* Diagnosis Hypersomnia- Primary Hypersomnia, unspecified JANIS (obstructive sleep apnea) Obstructive sleep apnea (adult) (pediatric) Snoring Other dyspnea and respiratory abnormality Memory loss [facility]* Diagnosis Wheeze- Primary Wheezing Chronic rhinitis Recurrent sinus infections Unspecified sinusitis (chronic) documented in this encounter [facility] Healthcare[facility]* Diagnosis Hypersomnia Hypersomnia, unspecified documented in this encounter [facility] HealthcareEvaluation note* Diagnosis Severe persistent asthma without complication- Primary Shortness of breath documented in this encounter [facility]Eval[facility] note* Diagnosis Calculus of gallbladder without cholecystitis without obstruction- Primary Calculus of gallbladder without mention of cholecystitis or obstruction documented in this encounter [facility]Eval[facility] note* Diagnosis Pre-op examination- Primary Preoperative examination, [...] Had COVID infection 08/31/24, was treated at [facility]. Today she is asymptomatic, Lungs CTA, [...] cholecystitis or obstruction documented in this encounter [facility] note* Diagnosis Pre-op examination- Primary Preoperative examination, unspecified Uncomplicated asthma, unspecified asthma severity, unspecified whether persistent Pure hypercholesterolemia, unspecified Hypertension, unspecified type Sleep apnea, unspecified type Biliary calculus of other site without obstruction Hypothyroidism, unspecified type Post-op pain- Primary Other acute postoperative pain Calculus of gallbladder without cholecystitis without obstruction Calculus of gallbladder without mention of cholecystitis or obstruction documented in this encounter [facility] note* Diagnosis Pre-op examination- Primary Preoperative examination, unspecified Uncomplicated asthma, unspecified asthma severity, unspecified whether persistent (HCC) Pure hypercholesterolemia, unspecified Hypertension, unspecified type Sleep apnea, unspecified type Biliary calculus of other site without obstruction Hypothyroidism, unspecified type Post-operative state- Primary Other postprocedural status documented in this encounter [facility] note* Diagnosis Onset Date Resolution Status Admit Date Daytime hypersomnolence acuteAugust 2024 11:17amOSA (obstructive sleep apnea)acuteAugust 2024 11:17amSnoringacuteAugust 2024 11:17am [facility] Work Phone: History general Narrative - Reported* Type Description Date Medical History high blood pressure Medical Historythyroid diseaseSurgical HistoryC sectionSurgical Historylobectomy Surgical Historywrist surgerySurgical Historybowel surgeryHospitalization Historysee above [employer] Other InstructionsNot on filedocumented in this encounter [facility] HospitaledicPark [facility] SystemInstructionsNot on filedocumented in this encounter [facility] SystemReason for referral (narrative)* Outpatient Procedure (Routine) - Pending ReviewSpecialtyDiagnoses / ProceduresReferred By Contact [facility] Diagnoses Severe persistent asthma without complication Procedures SPIROMETRY WITH DILATOR IF OBSTRUCTED BRNCDILAT RSPSE SPMTRY PRE&POST[place] [address] [place] [address] [facility] [place] [address] [place] [address] Referral IDStatusReasonStart DateExpiration DateVisits RequestedVisits [id number] Review Auto-Generated Referral * Outpatient Procedure (Routine) - Pending ReviewSpecialtyDiagnoses / Procedures Referred By ContactReferred To [facility] Diagnoses Severe persistent asthma without complication Procedures NITRIC OXIDE, EXHALED NITRIC OXIDE [place] [address] [place] [address] [facility] [place] [address] [place] [address] Referral IDStatusReasonStart DateExpiration DateVisits RequestedVisits [id number] Review Auto-Generated Referral [facility] BeachwoodReason for referral (narrative)No reason for referral information availableTrumbull Regional Medical Center Work Phone: Reason for visit Narrative* Auth/Cert (Routine) SpecialtyDiagnoses / ProceduresReferred By ContactReferred To [facility] Diagnoses Calculus of gallbladder without cholecystitis without obstruction Calculus of gallbladder without cholecystitis without obstruction [K80.20] Procedures LAPS SURG CHOLECYSTECTOMY W/CHOLANGIOGRAPHY LAPAROSCOPIC CHOLECYSTECTOMY WITH GRAMS Ambulatory [facility] [address] [place] [address] Phone: tel: Referral IDStatusReasonStart DateExpiration DateVisits RequestedVisits [id number] [facility] Summary Purpose Family History Relationship Condition Age [...] and content) DATE CREATED AUTHOR 08/14/2022 [facility] DATE CREATED AUTHOR AUTHOR'S ORGANIZ ATION 08/31/2023 [facility] DATE CREATED AUTHOR AUTHOR'S ORGANIZ ATION 04/08/2024 [facility] DATE CREATED AUTHOR AUTHOR'S ORGANIZ ATION 06/12/2024 [facility] DATE CREATED AUTHOR AUTHOR'S ORGANIZ ATION 06/28/2024 [facility] DATE CREATED AUTHOR AUTHOR'S ORGANIZ ATION 09/09/2024 [facility] DATE CREATED AUTHOR AUTHOR'S ORGANIZ ATION 10/19/2024 [facility] REASON FOR VISIT (unrecogniz ed section and [...] there is some lung scaring.[facility] CenterReasonCommentsImage requestReasonCommentsNew Patient CholelithiasisReasonCommentsPre-Op VisitReasonCommentsSchedule SurgeryReason CommentsPost Op [...] prevent infection., Pharmacist may modify dose per [facility] dose optimization consult agreement: Yes, Preprocedure [...] DateEnd Date Rakesh Vernon MD [address] [facility] [place] [address] PCP - General09/06/09Team MemberRelationshipSpecialtyStart DateEnd Date Rakesh Vernon MD [address] [place] [facility] [place] [address] PCP - [facility] Uowejqvr76/9/23Team MemberRelationshipSpecialtyStart DateEnd Date Rakesh Vernon MD [address] [place] [facility] [address] PCP - [facility]05/24/23Te MemberRelationshipSpecialtyStart DateEnd Date Rakesh Vernon MD [address] [place] [facility] [place] [address] PCP - Generalmi Wixepzmv93/9/23Team MemberRelationshipSpecialtyStart DateEnd Date Rakesh Vernon MD [address] [place] [facility] [place] [address] PCP - [facility]05/24/23Te MemberRelationshipSpecialtyStart DateEnd Date Rakesh Vernon MD [address] [place] [facility] [place] [address] PCP - GeneralFamily Czbiegux35/9/23Team MemberRelationshipSpecialtyStart DateEnd Date Rakesh Vernon MD [address] [place] [facility] [place] [address] PCP - GeneralFamily Vkixtubk78/9/23Team MemberRelationshipSpecialtyStart DateEnd Date Rakesh Vernon MD [address] [facility] [place] [address] ReferringFamily Medicine08/06/24Team MemberRelationshipSpecialtyStart DateEnd Date Rakesh Vernon MD [address] [facility] [place] [address] ReferringFamily Medicine08/06/24Team MemberRelationshipSpecialtyStart DateEnd Date Rakesh Vernon MD [address] [facility] [place] [address] PCP - GeneralFamily Mqqglpkx02/28/24Team MemberRelationshipSpecialtyStart Date End Date Rakesh Vernon MD [address] [facility] [place] [address] ReferringFamily Medicine08/06/24Team MemberRelationshipSpecialtyStart DateEnd Date Rakesh Vernon MD [address] [facility] [place] [address] ReferringFamily Medicine08/06/24Team MemberRelationshipSpecialtyStart DateEnd Date Rakesh Vernon MD [address] [facility] [place] [address] ReferringFamily Medicine08/06/24Team MemberRelationshipSpecialtyStart DateEnd Date Rakesh Vernon MD [address] [facility] [place] [address] ReferringFamily Medicine08/06/24Team MemberRelationshipSpecialtyStart DateEnd Date Rakesh Vernon MD [address] [facility] [place] [address] PCP - GeneralFamily Medicine09/19/24 Rakesh Vernon MD [address] [facility] [place] [address] ReferringFamily Medicine08/06/24Team MemberRelationshipSpecialtyStart DateEnd Date Rakesh Vernon MD [address] [facility] [place] [address] PCP - GeneralFamily Medicine09/19/24 Rakesh Vernon MD [address] [facility] [place] [address] ReferringFamily Medicine08/06/24Team MemberRelationshipSpecialtyStart DateEnd Date Rakesh Vernon MD [address] [facility] [place] [address] PCP - GeneralFamily Medicine09/19/24 Rakesh Vernon MD [address] [facility] [place] [address] ReferringFamily Medicine08/06/24Team MemberRelationshipSpecialtyStart DateEnd Date Rakesh Vernon MD [address] [facility] [place] [address] [facility] - [facility]ly Ngwdtsaj74/28/24 Team Status: Active Member Role Status Dates [...] any alcohol or drug abuse patient.[facility], BeachwoodIn the event this information is protected by the Federal Confidentiality of Alcohol and Drug Abuse Patient Records regulations: The Federal rules restrict any use of the information to criminally investigate or prosecute any alcohol or drug abuse patient.[facility], BeachwoodIn the event this information is protected by the Federal Confidentiality of Alcohol and Drug Abuse Patient Records regulations: The Federal rules restrict any use of the information to criminally investigate or prosecute any alcohol or drug abuse patient.[facility], BeachwoodIn the event this information is protected by the Federal Confidentiality of Alcohol and Drug Abuse Patient Records regulations: The Federal rules restrict any use of the information to criminally investigate or prosecute any alcohol or drug abuse patient.[facility], BeachwoodIn the event this information is protected by the Federal Confidentiality of Alcohol and Drug Abuse Patient Records regulations: The Federal rules restrict any use of the information to criminally investigate or prosecute any alcohol or drug abuse patient.[facility], BeachwoodIn the event this information is protected by the Federal Confidentiality of Alcohol and Drug Abuse Patient Records regulations: The Federal rules restrict any use of the information to criminally investigate or prosecute any alcohol or drug abuse patient.[facility] BeachwoodIn the event this information is protected by the Federal Confidentiality of Alcohol and Drug Abuse Patient Records regulations: The Federal rules restrict any use of the information to criminally investigate or prosecute any alcohol or drug abuse patient.[facility], BeachwoodIn the event this information is protected by the Federal Confidentiality of Alcohol and Drug Abuse Patient Records regulations: The Federal rules restrict any use of the information to criminally investigate or prosecute any alcohol or drug abuse patient.[facility] BeachwoodIn the event this information is protected by the Federal Confidentiality of Alcohol and Drug Abuse Patient Records regulations: The Federal rules restrict any use of the information to criminally investigate or prosecute any alcohol or drug abuse patient.[facility] BeachwoodIn the event this information is protected by the Federal Confidentiality of Alcohol and Drug Abuse Patient Records regulations: The Federal rules restrict any use of the information to criminally investigate or prosecute any alcohol or drug abuse patient.[facility] Goals (unrecognized section and content) Goals may [...] BE BASED ON THE PRIMARY CLINICAL RECORDS. [facility] [email or web address] [facility]. provides no warranty or guarantee of the accuracy or completeness of information in this document.
== END 2025-05-13 09:48 | disposition home or self-care (01) ==
LOC: FHNEUROLOG 09:47
PROVIDERS: PCP Family Medicine; Visit Provider Psychiatry & Neurology Neurology
DX: G47.33 Obstructive sleep apnea (adult) (pediatric) (principal); G47.10 Hypersomnia, unspecified; R06.83 Snoring
CPT/HCPCS: G0463

== ENCOUNTER 2025-05-21 14:39 | Outpatient (OUT) | payer BC, SELFPAY ==
--- OUTSIDE RECORDS SUMMARY | 2025-05-21 14:41 | XMS_ITS | Clinical Summary ---
Author Organization [employer] tem Address [id number] [address] [place] [address] Care Team Providers Care Fiscal Services Manager Name Role Phone Sandeep Lundberg MD Primary Care Provider [phone] Social History Tobacco UseTypesPacks/DayYears UsedDateSmoking Tobacco: Never Assessed CommentsUnknownSex and Gender InformationValueDate RecordedSex Assigned at Not on fileLegal BalMnmiwh06/28/2024 1:33 PM EDTGender IdentityNot on fileSexual OrientationNot on file Plan of Treatment Health MaintenanceDue DateLast DoneCommentsDepression Zljcdiyqf18/23/1979Tobacco Qsaemijvs51/23/1979Adult BMI Glzfqjoca10/23/1985DTaP,Tdap and Td Vaccines (1 - Tdap)1986Pap Smear01/06/1988Zoster (Shingles) Vaccine (1 of 2)2017 Influenza Lrswric8503/16/2025 Medical Devices Not on file Insurance Care Teams Team MemberRelationshipSpecialtyStart DateEnd Date Sandeep Lundberg MD [address] [place] [address] [facility] Kwgygpqg70/28/24
--- OUTSIDE RECORDS SUMMARY | 2025-05-21 14:41 | XMS_ITS | Clinical Summary ---
Author Organization [facility] Address [address] [place] [address] Phone Care Team Providers Care Legal Receptionist Name Role Phone Sandeep Lundberg MD Primary Care Provider [phone] Allergies Active AllergyReactionsCriticalityNoted UaxmXvgewtgmIwyvznopvunWpqbWcq86/06/2023 KstzyfqEubgpnzXtp66/23/2024 Medications No known medications Social History Tobacco UseTypesPacks/DayYears UsedDateSmoking Tobacco: Never Assessed CommentsUnknownSex and Gender InformationValueDate RecordedSex Assigned at Not on fileLegal OqiAelfdm14/25/2022 12:01 PM ESTGender IdentityNot on file Sexual OrientationNot on file Last Filed Vital Signs Vital SignReadingTime TakenCommentsBlood Ehtgfoev674/9401 10:27 AM EST Znbxo429608/07/2023 10:27 AM CQVOpyuejsques33.7 ??C (98.1 ??F)08/07/2023 8:01 AM ESTRespiratory Vuup002808/07/2023 8:01 AM ESTOxygen Dabvklsdgl70%08/07/2023 10:27 AM ESTInhaled Oxygen Concentration--Nibwfl32.6 kg (180 lb)08/07/2023 8:01 AM EST Xvjkqq079.6 cm (5' 6 )08/07/2023 8:01 AM ESTBody Mass Index29.05008/07/2023 8:01 AM EST Plan of Treatment Health MaintenanceDue DateLast DoneCommentsCT Uygrwmydzydr1967Colonoscopy 1967Colorectal Cancer Wxloxoesc1967FIT-DNA (Cologuard)1967FIT 1967HIV Weigmyzab1967Lipid Panel1967 8096Qbrixanbiwlrs1967MMR Vaccines (1 of 1 - Standard series)01/06/1968Hepatitis C Rhjhxgqul35/23/1985 Hepatitis B Vaccines (1 of 3 - 19+ 3-dose series)1986Cervical Cancer Vfzfwctuu83/23/1988HPV/Usifui8801/06/1988Pap Smear01/06/1988DTaP/Tdap/Td Vaccines (1 - Tdap)01/05/19892101Pbcafqphi29/23/2007Pneumococcal Vaccine (1 of 1 - PCV) 2017Zoster Vaccines (1 of 2)2017Yearly Adult Wchoubzu80/10/2024 05/24/2023Influenza Vaccine (#1)5COVID-19 Vaccine (3 - season) 509/, 1Diabetes Ltxmqdihq39/23/01049208/07/2023HIB VaccinesAged OutNo longer eligible based on patient's [...] this topic Procedures Procedure NamePriorityDate/TimeAssociated DiagnosisCommentsCOMPREHENSIVE METABOLIC ZPYZCMJRS41/23/2024 8:29 AM EST from Last 3 Months or Most Recently Relevant to Health Maintenance Results * (ABNORMAL) Comprehensive metabolic panel (08/07/2023 8:29 AM EST)Component ValueRef RangeTest MethodAnalysis TimePerformed AtPathologist SignatureGlucose 108(H)74 - 99 mg/dL LAB CHEMISTRY METHOD 08/07/2023 9:00 [facility] [place] JSCVcwufj329662 - 145 mmol/L LAB CHEMISTRY METHOD 08/07/2023 9:[address] [facility] LABPotassium3.83.5 - 5.3 mmol/L LAB CHEMISTRY METHOD 08/07/2023 9:[address] [facility] AXORgcfnego05047 - 107 mmol/L LAB CHEMISTRY METHOD 08/07/2023 9:[address] [facility] DGKRuzhmhfudyz6536 - 32 mmol/L LAB CHEMISTRY METHOD 08/07/2023 9:[address] [facility] LABAnion Czn0512 - 20 mmol/L LAB CHEMISTRY METHOD 08/07/2023 9:[address] [facility] LABUrea Jagcpdxp069 - 23 mg/dL LAB CHEMISTRY METHOD 08/07/2023 9:[address] [facility] LABCreatinine0.750.50 - 1.05 mg/dL LAB CHEMISTRY METHOD 08/07/2023 9:[address] [facility] LABeGFR>90>60 mL/min/1.73m*2 LAB CHEMISTRY METHOD 08/07/2023 9:[address] [facility] LABComment: Calculations of estimated GFR are performed using the 2020 CKD-EPI Study Refit equation without therace variable for the IDMS-Traceable creatinine methods. https://jasn.asnjournals.org/content///ASN.8698563417 Calcium9.48.6 - 10.3 mg/dL LAB CHEMISTRY METHOD 08/07/2023 9:[address] [facility] LABAlbumin4.73.4 - 5.0 g/dL LAB CHEMISTRY METHOD 08/07/2023 9:[address] [facility] LABAlkaline Gsbsqmokqlt6510 - 110 U/L LAB CHEMISTRY METHOD 08/07/2023 9:[address] [facility] LABTotal Protein7.86.4 - 8.2 g/dL LAB CHEMISTRY METHOD 08/07/2023 9:[address] [facility] NDMAYE983 - 39 U/L LAB CHEMISTRY METHOD 08/07/2023 9:[address] [facility] LABBilirubin, Total0.50.0 - 1.2 mg/dL LAB CHEMISTRY METHOD 08/07/2023 9:[address] [facility] TSBUMD731 - 45 U/L LAB CHEMISTRY METHOD 08/07/2023 9:00 [facility] [place] LABComment:Patients treated with Sulfasalazine may generate falsely decreased results for ALT.Specimen (Source) Anatomical Location / LateralityCollection Method / VolumeCollection Time Received TimeBloodVenous blood specimen / UnknownVenipuncture / Unknown 08/07/2023 8:29 AM EST08/07/2023 8:34 AM EST Narrative Authorizing ProviderResult TypeResult StatusAngela C Sales DOLAB BLOOD ORDERABLESFinal ResultPerforming OrganizationAddressCity/State/ZIP CodePhone Number [facility] [address] [place] [phone] from Last 3 Months or Most Recently Relevant to Health Maintenance Insurance * Guarantor: Leida Rodriguez TypeRelation to PatientDate of BirthPhone Billing AddressPersonal/LviwwyGpnt[address] [address] * Guarantor: Leida Rodriguez TypeRelation to PatientDate of BirthPhone Billing AddressPersonal/FchqsuXbge1965 [address] [address] * Guarantor: Leida Rodriguez TypeRelation to PatientDate of BirthPhone Billing AddressPersonal/MhpxnzZrcu[address] [address] Care Teams Team MemberRelationshipSpecialtyStart DateEnd Sandeep Lundberg MD [address] [facility] [place] [address] PCP - General09/06/09
--- OUTSIDE RECORDS SUMMARY | 2025-05-21 14:41 | XMS_ITS | Clinical Summary ---
Author Organization [facility] Address [address] [place] [address] Care Team Providers Care Bike Technician Name Role Phone Sandeep Lundberg MD Primary Care Provider [phone] Allergies Active AllergyReactionsCriticalityNoted WjlbJhpxmmxoLfarvwewnpeBuvbWxm32/06/2023 Medications MedicationSigDispense QuantityRefillsLast FilledStart DateEnd DateStatus levothyroxine (Synthroid, Levoxyl) 125 MCG tablet Take 125 mcg by mouth in the morning.05/11/2023ctive lisinopril 10 MG tablet Take 10 mg by mouth in the morning.05/11/2023ctive Uycvtlgsdcn-Yftibxonj-Ocjsjz (Trelegy Ellipta) 100-62.5-25 MCG/ACT aerosol powder Indications:WheezeInhale 1 puff Daily 1 each /5Active modafinil (Provigil) 200 MG tablet Indications:HypersomniaTake 1 tablet (200 mg) by mouth Daily 30 tablet ctive FLUoxetine (PROzac) 10 MG capsule Indications:Weight gainTAKE 1 CAPSULE BY MOUTH EVERY DAY 90 capsule 5Active Active Problems No known active problems Encounters DateTypeDepartmentCare ZstyLdlemyimdjo45/28/2025Refill [facility] [address] [place] [address] Kadeem Robertson DO Weight gain03/10/2025Telephone [facility] [address] [place] [address] Kadeem Robertson DO from Last 3 Months Social History Tobacco UseTypesPacks/DayYears UsedDateSmoking Tobacco: Never Tobacco Cessation:Counseling Given: Not Answered CommentsNoSex and Gender InformationValueDate RecordedSex Assigned at UsjroTeypvh42/08/2023 3:53 PM ESTLegal YyzSoscpv39/15/2023 8:13 PM EDTGender VusqpxmbGmdddf16/08/2023 3:53 PM ESTSexual GqredrgqdtvKcowbvwz83/08/2023 3:53 PM EST Last Filed Vital Signs Vital SignReadingTime TakenCommentsBlood Sxuvgjyl656/8404/16/2024 9:35 AM EDT Gsyki432504/16/2024 9:35 AM EDTTemperature--Respiratory Rate--Oxygen Vaixltmkvt47% 04/16/2024 9:35 AM EDTInhaled Oxygen Concentration--Zrptjr82.6 kg (160 lb) 06/09/2024 2:23 PM DUCRoombj835.6 cm (5' 6 )06/09/2024 2:23 PM ESTBody Mass Index25.8206/09/2024 2:23 PM EST Plan of Treatment DateTypeDepartmentCare Team (Latest Contact Info)Pqhngnocfij79/18/2025 11:00 AM ESTProcedure Visit [facility] [address] [place] [address] Jennifer Jennings PA [address] [facility] [place] [address] Health MaintenanceDue DateLast DoneCommentsCT Hxjwqvncjlxf1967Colonoscopy 1967Colorectal Cancer Roceimwbu1967FIT-DNA1967FIT1967 FOBT1967Eoavnqkagkczw1967Pap Smear01/06/1988Cervical Cancer Fygtywtal39/23/1997HPV/Rspaun3601/05/19978507Nblhashnz45/15/23500508/30/2022OVID-19 Vaccine ( season)/, 03/08/2021Influenza Vaccine (#1)2025Pneumococcal Vaccine: Pediatrics (0 to 5 Years) and At-Risk Patients (6 to 64 Years)Aged OutNo longer eligible based on patient's age to complete this topic Procedures Procedure NamePriorityDate/TimeAssociated DiagnosisCommentsMM TOMOSYNTHESIS SCREENING BI06/29/2023 8:13 AM EST from Last 3 Months or Most Recently Relevant to Health Maintenance Results * MM TOMOSYNTHESIS SCREENING BI (06/29/2023 8:13 AM EST)Anatomical Region LateralityModalityOtherSpecimen (Source)Anatomical Location / Laterality Collection Method / VolumeCollection TimeReceived Time06/29/2023 8:13 AM EST Narrative 06/29/2023 8:14 AM EST [facility] ?[address] ? [place] [address] ? Mammography Report ? Signed ? Patient: PRAVEENA LAIRD ?MR#: [id number] ?? : 1965 ?Acct:[id number] ?? Age/Sex: 58 / F ?ADM Date: 12//23 ?? Loc: MAMMO ? Attending Dr: Jennifer Jennings ? Ordering Physician: Jennifer Jennings ?Results: ? Date of Service: 12/13/23 ?Follow Up: ? Procedure(s): MM tomosynthesis screening BI ?? Accession Number(s): [id number] ? cc: Jennifer Jennings; Sandeep Lundberg M.D. ? Patient Name: ? PRAVEENA LAIRD ? MR#: [id number] ? : 1965 ? Exam Date: 06/27/2023 [...] at age ??50. ? LOCATION: ? [facility] ? BREAST COMPOSITION: ? Heterogeneously dense,which may [...] at 08:13 ? Dictated By: ?Kolton Montenegro V MRajendra. ? Signed By: ?06/29/23 0814 ? DD/ 0813 ? TD/TT: ? Veneer Taping Machine Operator: Procedure Note Radiology, Radiologist, MD - 06/29/2023 [facility] [place] [id number] Mammography Report Signed Patient: PRAVEENA LAIRD JMR#: [id number] : 1965Acct:[id number] Age/Sex: 58 / FADM Date: 06/27/23 Loc: MAMMO Attending Dr: Jennifer Jennings Ordering Physician: Jennifer JenningsResults: Date of Service: 06/27/23Follow Up: Procedure(s): MM tomosynthesis screening BI Accession Number(s): [id number] cc: Jennifer Jennings; Sandeep Lundberg M.D. Patient Name: PRAVEENA LAIRD MR#: [id number] : 1965 Exam Date: 06/27/2023 Ordering Doctor: [...] breast cancer at age 50. LOCATION: [facility] BREAST COMPOSITION: Heterogeneously dense,which may obscure smallmasses. [...] Montenegro M.D. Signed By:06/29/23813 DD/ 2 TD/TT: Veneer Taping Machine Operator: Authorizing ProviderResult TypeResult StatusAmy Dick PACLINISYNC IMAGINGFinal Result from Last 3 Months or Most Recently Relevant to Health Maintenance Insurance Care Teams Team MemberRelationshipSpecialtyStart DateEnd Sandeep Lundberg MD PCP - GeneralFamily Hjbpkmfr36/9/23
--- OUTSIDE RECORDS SUMMARY | 2025-05-21 14:41 | XMS_ITS | Encounter Summary ---
Author Organization [facility] Address [address] [place] [address] Care Team Providers Care Service Establishment Attendant Name Role Phone Sandeep Lundberg MD Primary Care Provider [phone] Encounter Details DateTypeDepartmentCare Team (Latest Contact Info)Iitjpsuzrnj01/13/2023Clinisync Result Encounter [facility] External Department Unsolicited Jennifer Wiseman PA [address] [facility] [address] [place], [place] [phone] Social History Tobacco UseTypesPacks/DayYears UsedDateSmoking Tobacco: NeverCommentsNo Sex and Gender InformationValueDate RecordedSex Assigned at BirthFemale 05/23/2023 3:53 PM ESTLegal OevTmwstt30/15/2023 8:13 PM EDTGender IdentityFemale 05/23/2023 3:53 PM ESTSexual EgfuyiynvfdHlraihrg56/08/2023 3:53 PM ESTdocumented as of this encounter Plan of Treatment DateTypeDepartmentCare Team (Latest Contact Info)Dxpexirjyco24/18/2025 11:00 AM ESTProcedure Visit [facility] [address] [place] [phone] Jennifer Wiseman PA [address] [facility] [address] [place], [place] [phone] documented as of this encounter Procedures Procedure NamePriorityDate/TimeAssociated DiagnosisCommentsXR DEXA AXIAL ZWZSZOLT43/13/2023 3:49 PM EST documented in this encounter Results * XR DEXA AXIAL SKELETON (06/27/2023 3:49 PM EST)Anatomical RegionLaterality ModalityOtherSpecimen (Source)Anatomical Location / LateralityCollection Method / VolumeCollection TimeReceived Time06/27/2023 3:49 PM EST Narrative 06/27/2023 3:52 PM EST [facility] ?[address] ? [place] [address] ?XRay Report ? Signed ? Patient: PRAVEENA LAIRD ?MR#: [id number] ?? : 1965 ?Acct:[id number] ?? Age/Sex: 58 / F ?ADM Date: 06/27/23 ?? Loc: MAMMO ? Attending Dr: Jennifer Wiseman ? Ordering Physician: Jennifer Wiseman ?? Date of Service: 06/27/23 ?? Procedure(s): XR DEXA axial skeleton ?? Accession Number(s): [id number] ? cc: Jennifer Wiseman; Sandeep Lundberg M.D. ? [facility] ? [address] ? [place] [address] ? Patient Name: ?? PRAVEENA LAIRD ? MRN: [facility]:[id number] ? date: 1965 ?Sex: F ?? Assigned Patient Location: MAMMO ?? Current Patient Location: MAMMO ?? Accession/Order Number: [id number] ?? Exam Date: 06/27/2023 ??14:15 ?Report Date: [...] 1552 ? DD/ 1549 ? TD/TT: ? Passenger Service Agent: Procedure Note Radiology, Radiologist, MD - 06/27/2023 [place] [address] XRay Report Signed Patient: PRAVEENA LAIRD JMR#: [id number] : 1965Acct:[id number] Age/Sex: 58 / FADM Date: 06/27/23 Loc: MAMMO Attending Dr: Jennifer Wiseman Ordering Physician: Jennifer Wiseman Date of Service: 06/27/23 Procedure(s): XR DEXA axial skeleton Accession Number(s): [id number] cc: Jennifer Wiseman; Sandeep Lundberg M.D. The [place] [id number] Patient Name: PRAVEENA LAIRD MRN: [id number] date: 1965 Sex: F Assigned Patient Location: [facility] Current Patient Location: [facility] Accession/Order Number: [id number] Exam Date: 06/27/2023 14:15 Report Date: 06/27/2023 [...] M.D. Signed By:06/27/23 1552 DD/ 1549 TD/TT: Passenger Service Agent: Authorizing ProviderResult TypeResult StatusAmy Bridgewater PACLINISYNC IMAGINGFinal Result documented in this encounter Visit Diagnoses Not on filedocumented in this encounter Care Teams Team MemberRelationshipSpecialtyStart DateEnd Date Sandeep Lundberg MD PCP - GeneralFamily Drhjqigo45/9/23documented as of this encounter
--- OUTSIDE RECORDS SUMMARY | 2025-05-21 14:41 | XMS_ITS | Encounter Summary ---
Author Organization [facility] Address [address] [place] [address] Care Team Providers Care Receiving Coordinator Name Role Phone Sandeep Lundberg MD Primary Care Provider [phone] Encounter Details DateTypeDepartmentCare Team (Latest Contact Info)Udvwcyeonzb52/15/2023Clinisync Result Encounter [facility] External Department Unsolicited Jennifer Jennings PA [address] [facility] [address] [place], [place] [phone] Social History Tobacco UseTypesPacks/DayYears UsedDateSmoking Tobacco: NeverCommentsNo Sex and Gender InformationValueDate RecordedSex Assigned at BirthFemale 05/23/2023 3:53 PM ESTLegal HxjSmdqje88/15/2023 8:13 PM EDTGender IdentityFemale 05/23/2023 3:53 PM ESTSexual YsbzmyfxlqcZwlnhugj13/08/2023 3:53 PM ESTdocumented as of this encounter Plan of Treatment DateTypeDepartmentCare Team (Latest Contact Info)Gawmtbizfiw62/18/2025 11:00 AM ESTProcedure Visit [facility] [address] [facility] [place] [phone] Jennifer Jennings PA [address] [facility] [address] [place], [place] [phone] documented as of this encounter Procedures Procedure NamePriorityDate/TimeAssociated DiagnosisCommentsMM TOMOSYNTHESIS SCREENING BI06/29/2023 8:13 AM EST documented in this encounter Results * MM TOMOSYNTHESIS SCREENING (06/29/2023 8:13 AM EST)Anatomical Region LateralityModalityOtherSpecimen (Source)Anatomical Location / Laterality Collection Method / VolumeCollection TimeReceived Time06/29/2023 8:13 AM EST Narrative 06/29/2023 8:14 AM EST [facility] ?[address] ? [place] [address] ? Mammography Report ? Signed ? Patient: PRAVEENA LAIRD ?MR#: [id number] ?? : 1965 ?Acct:[id number] ?? Age/Sex: 58 / F ?ADM Date: 06/27/23 ?? Loc: MAMMO ? Attending Dr: Jennifer Jennings ? Ordering Physician: Jennifer Jennings ?Results: ? Date of Service: 06/27/23 ?Follow Up: ? Procedure(s): MM tomosynthesis screening BI ?? Accession Number(s): [id number] ? cc: Jennifer Jennings; Sandeep Lundberg M.D. ? Patient Name: ? PRAVEENA LAIRD ? MR#: [id number] ? : 1965 ? Exam Date: 06/27/2023 [...] at age ??50. ? LOCATION: ? [facility] ? BREAST COMPOSITION: ? Heterogeneously dense,which may [...] ?06/29/23813 ? DD/ 2 ? TD/TT: ? Snack Steward: Procedure Note Radiology, Radiologist, MD - 06/29/2023 [place] [address] Mammography Report Signed Patient: PRAVEENA LAIRD JMR#: [id number] : 1965Acct:[id number] Age/Sex: 58 / FADM Date: 06/27/23 Loc: MAMMO Attending Dr: Jennifer Jennings Ordering Physician: Jennifer Keyults: Date of Service: 06/27/23Follow Up: Procedure(s): MM tomosynthesis screening BI Accession Number(s): [id number] cc: Jennifer Jennings; Sandeep Lundberg M.D. Patient Name: PRAVEENA LAIRD MR#: [id number] : 1965 Exam Date: 06/27/2023 Ordering Doctor: [...] breast cancer at age 50. LOCATION: [facility] BREAST COMPOSITION: Heterogeneously dense,which may obscure smallmasses. [...] Montenegro M.D. Signed By:06/29/23813 DD/ 2 TD/TT: Snack Steward: Authorizing ProviderResult TypeResult StatusJennifer Dick PACLMOUNTAIN VIEW HOSPITALYNC IMAGINGFinal Result documented in this encounter Visit Diagnoses Not on filedocumented in this encounter Care Teams Team MemberRelationshipSpecialtyStart DateEnd Date Sandeep Lundberg MD PCP - GeneralFamily Cuknvnqh15/9/23documented as of this encounter
--- NOTE | 2025-05-21 14:48 | MR_ITS ---
[address] [address] Patient Name: PRAVEENA DACOSTA MRN: [id number] date: 1965 Sex: F Assigned Patient Location: MRI Current Patient Location: MRI Accession/Order Number: [id number] Exam Date: 05/21/2025 15:00 Report Date: 05/21/2025 17:41 At the request of: RAKESH VERNON MD Procedure: MR abdomen wo con MR abdomen wo con 05/21/2025 4:45 PM SIGNS AND SYMPTOMS: ^Gallbladder Anomaly TECHNIQUE: Multiplanar multisequence MR images of the abdomen were obtained without IV contrast COMPARISON: 05/08/2025 and 08/30/2024 FINDINGS: Lower Chest: Within normal limits. ABDOMEN: Liver: Within normal limits. Bile Ducts: The common bile duct is mildly distended at approximately 8 mm in greatest axial dimension, similar to the prior ultrasound. No intrahepatic biliary ductal dilatation. There is a 3 mm T2 hypointense possible filling defect corresponding to the suspected choledochal lithiasis on previous ultrasound near the ampulla. Gallbladder: Previously removed Pancreas: Within normal limits. No pancreatic ductal dilatation. Spleen: Within normal limits. Adrenals: Within normal limits. Kidneys: Within normal limits. Bowel: Normal caliber. Mesenteric Lymph Nodes: No enlarged mesenteric lymph nodes. Peritoneum: No ascites or free air, no fluid collection. Vessels: Satisfactory flow voids are noted in the abdominal aorta, main portal vein, and inferior vena cava. Retroperitoneum: Within normal limits. Abdominal Wall: Within normal limits. Bones: Mild degenerative changes are noted in the lower lumbar spine. MR/MR abdomen wo con IMPRESSION: The common bile duct is mildly distended at approximately 8 mm in greatest axial dimension, similar to the prior ultrasound. No intrahepatic biliary ductal dilatation. There is a 3 mm T2 hypointense possible filling defect corresponding to the suspected choledochal lithiasis on previous ultrasound near the ampulla. There is evidence of prior cholecystectomy. Impression dictated by: Jaydon Gomez M.D. 05/21/2025 5:41 PM Dictation Location: [place] [address] Electronically authenticated by: [id number] Y Date: 05/21/2025 17:41
--- NOTE | 2025-05-21 16:10 | MM_ITS ---
Patient Name: PRAVEENA DACOSTA MR#: [id number] : 1965 Exam Date: 05/21/2025 Ordering Doctor: DR RAKESH VERNON . RADIOLOGY REPORT PROCEDURE: MM TOMOSYNTHESIS SCREENING BI COMPARISON: MM TOMOSYNTHESIS SCREENING BI, 06/27/2023. MG MAMM SCREEN NIKKO W CAD, 09/10/2017. INDICATIONS: screening for malignant neoplasm of breast Calculator Name NCI Breast Cancer Risk Assessment Tool 5 Year Breast Cancer Risk 1.40% Lifetime Breast Cancer Risk 7.80% Personal Breast Cancer No Personal Ovarian Cancer No Treatments None Family Cancers Aunt-maternal with breast cancer at age ~48. LOCATION: [facility] BREAST COMPOSITION: The breasts are heterogeneously dense, which may obscure small masses. FINDINGS: RIGHT BREAST: No significant suspicious finding. Similar focal asymmetries are noted. LEFT BREAST: No significant suspicious finding. Similar focal asymmetries are noted. DIAGNOSTIC CATEGORY 2--BENIGN FINDING. NO CHANGE FROM COMPARISON. RECOMMENDATIONS: ROUTINE MAMMOGRAM AND CLINICAL EVALUATION IN 12 MONTHS. Dictated by: Jaydon Gomez MD on 05/21/2025 at 17:14 Approved by: Jaydon Gomez MD on 05/21/2025 at 17:29
== END 2025-05-21 14:40 | disposition home or self-care (01) ==
LOC: MRI 14:39
PROVIDERS: PCP Family Medicine; Visit Provider Family Medicine
DX: Q44.1 Other congenital malformations of gallbladder (principal); Z12.31 Encounter for screening mammogram for malignant neoplasm of breast; Z90.49 Acquired absence of other specified parts of digestive tract; Z80.3 Family history of malignant neoplasm of breast
CPT/HCPCS: 74181; 77063; 77067

== ENCOUNTER 2025-06-02 19:43 | Outpatient (REF) | payer BC, SELFPAY ==
--- OUTSIDE RECORDS SUMMARY | 2025-06-02 19:46 | XMS_ITS | CCD ---
Author Organization [facility] CliniSyri Care Team Providers Care Acute Care Nursing Assistant Name Role Phone SAULO, DR CAMERON Primary Care Unavailable DAVIE, DR NOBLE Admitting Unavailable DAVIE, DR NOBLE Attending Unavailable DAVIE, DR NOBLE Consulting Unavailable SAULO, DR CAMERON Primary Care Unavailable KRUPA, DR VANESSA Sanchez Admitting Unavailable KRUPA, DR VANESSA Sanchez Attending Unavailable WEST, DR VANESSA Sanchez Consulting Unavailable SAULO, DR CAMERON Primary Care Unavailable KRUPA, DR VANESSA Sanchez Admitting Unavailable KRUPA, DR [...] Care Provider RAKESH VERNON Primary Care Unavailable SHEN DENNISON Attending Unavailable Rakesh Vernon MD Primary Care Provider [phone] DAVE FRANCIS Attending Unavailable BREANN BRISCOE Attending Unavailable Kana Montilla Attending Unavailable Kana Montilla Admitting Unavailable Rakesh Vernon Primary Care Unavailable Rakesh Vernon MD Unavailable Rakesh Vernon MD Primary Care Provider [phone] Rakesh Vernon MD Primary Care Provider CARLOSJONO RIVERA III Referring Unavailable CARLOS IIIJONO Attending Unavailable ELGIN PELAYO Attending Unavailable RAKESH VERNON Referring Unavailable CARLOS IIIJONO Attending Unavailable CARLOS IIIJONO Referring Unavailable RAKESH VERNON Primary Care Unavailable CARLOS IIIJONO Admitting Unavailable CARLOS III, SHARATH Attending Unavailable JONO GONZALEZ III Referring Unavailable Rakesh Vernon MD Primary Care Provider [id number] Rakesh Vernon MD Primary Care Provider [phone] Jenny DRAKE Neelima Claire Attending Provider Rakesh Vernon MD Primary Care Provider [phone] Allergies Allergy ClassificationReported Allergen(s)Allergy TypeDate of OnsetReaction(s) Facility (4 sources)Codeine; Translations: [CODEINE]Drug Laykzcu73-04-7933QiiwkslpGhr [facility] Repository (1 source)diphenhydrAMINEDrug Hutpmwk59-09-3882BphSt. [facility] Repository (2 sources)ErythromycinDrug Gjzuran20-80-9530FhiytuWij [facility] Repository (10 sources)Penicillins; Translations: [PENICILLINS]Drug allergy (disorder) 28-06-5591YufkdcshawhTrinity Health System Repository (1 source)PenicillinDrug AllergyHCA Florida Englewood Hospital [employer] Other (12 sources)Amoxicillin; Translations: [AMOXICILLIN]Drug Ebdviyo94-37-1334SvfgSumma Health (11 sources)CodeineDrug Kldlkyx71-72-9674Goxwawh, Other: See Misti, Anila [facility] Work Phone: (1 source)CodeineDrug Hctcynz54-22-4713HlogpbnzyMercy Memorial Hospital Repository (1 source)ErythromycinDrug Vpdgtnj10-76-4381ItfaxpbisMercy Memorial Hospital Repository (1 source)PenicillinsDrug allergy (disorder)81-48-2156ZbimvodxeMercy Memorial Hospital Repository (2 sources)PenicillinsDrug Oydzkea10-99-7871Zosxfrkuwuw, [facility] (1 source)PenicillinsDrug Ddjjler44-73-2630Lccdewuibts, [facility] Medications Current Medications MedicationDrug Class(es)DatesSig (Normalized)Sig (Original)acetaminophen 325 mg / HYDROcodone bitartrate 5 mg oral tablet (3 sources)Opioid AgonistStart: 09-30-2024 End: 14-26-6638voed 1 tablet by mouth every six hours as needed for pain HYDROcodone-acetaminophen (NORCO) 5-325 mg per tablet Indications: Post-op pain Take 1 tablet by mouth every 6 hours as needed for pain for up to 3 days. 12 tablet 09/30/2024 10/03/2024 ActiveStart: 09-30-2024 End: tablet, ORAL, NEEDED, 1 dose, Starting on Sun09/30/24 at 1012, Until Sun09/30/24 at 1047, Moderate Pain (4-6) - Ivkyupvzii801353 200 actuat albuterol 0.09 mg/actuat metered dose inhaler (11 sources)beta2-Adrenergic AgonistStart: 05-09-6470uzre 2 puff(s) by inhalation every four hours as neededalbuterol HFA (VENTOLIN HFA) 90 mcg/actuation inhaler Inhale 2 Puffs as instructed every 4 hours asneeded. 02/13/2024 ActiveStart: 06-10-2020 End: 42-73-5039rmvy 1 puff(s) by inhalation every four hours as neededAlbuterol Sulfate 90 mcg/actuation HFA aerosol inhaler Discontinued 1 - 2 PUFF INHALATION Q4H as needed for Shortness Of Breath June 10, 2020 1:00am June 04, 2024 8:43amcyclobenzaprine hydrochloride 10 mg oral tablet (1 source)Muscle RelaxantStart: 77-69-0634qwze 1 tablet by mouth every eight hours as needed for painCyclobenzaprine HCl 10 MG 1 tablet Orally every 8 hours prn back pain for 5 days Dec, ActiveFLUoxetine 10 mg oral capsule (20 sources)Serotonin Reuptake InhibitorStart: 79-93-1772osai 1 capsule by mouth once dailyFluoxetine 10 mg capsule Active 10 MG PO Daily June 04, 2024 1:00am FreeTextSig: Oral; Note: Source Status: Taking; Qty: 90 Capsule; Provider: Ginna Kirby ( ) Complies with drug smgovsr44 actuat fluticasone furoate 0.1 mg/actuat / umeclidinium 0.0625 mg/actuat / vilanterol 0.025 mg/actuat dry powder inhaler (4 sources)Anticholinergic, Corticosteroid, beta2-Adrenergic AgonistStart: 06-09-2024 End: 46-89-2345cvzl 1 puff(s) by inhalation once daily Uyybmifyksv-Nrjkuiyjy-Nskyzd (Trelegy Ellipta) 100-62.5-25 MCG/ACT aerosol powder Indications: Wheeze Inhale 1 puff Daily 1 each 06/09/2024 06/09/2025 Thprxt48 actuat formoterol fumarate 0.005 mg/actuat / mometasone furoate 0.1 mg/actuat metered dose inhaler (10 sources)Corticosteroid, beta2-Adrenergic AgonistStart: 08-12-2024 End: 54-21-7290pvaq 2 puff(s) by inhalation twice dailymometasone-formoterol (DULERA) 100-5 mcg/actuation inhaler Indications: Severe persistent asthma wit hout complication (HCC) Inhale 2 Puffs as instructed two times a day. 13 g 2 08/12/2024 11/10/2024 Activelevothyroxine sodium 0.125 mg oral tablet (20 sources)l-ThyroxineStart: 40-03-2963rjwb 1 tablet by mouth once daily Levothyroxine 125 mcg tablet Active 125 MCG PO Daily February 18, 2025 12:00am Complies with drug therapyStart: 06-10-2020 End: 48-15-3566chof 1 tablet by mouth once dailyLevothyroxine 150 mcg tablet Discontinued 150 MCG PO Daily June 10, 2020 1:00am February 18, 2025 10:24amLevothyroxine Sodium 125 MCG Oral for 90 Days Activelisinopril 10 mg oral tablet (20 sources)Angiotensin Converting Enzyme InhibitorStart: 01-12-3775lhvk 1 tablet by mouth in the morninglisinopril 10 MG tablet Take 10 mg by mouth in the morning. 05/11/2023 ActiveLisinopril 10 MG Oral for 90 Days Activemodafinil 200 mg oral tablet (20 sources)Sympathomimetic-like AgentStart: 12-31-2024 End: 47-77-6501kyfn 1 tablet by mouth once daily in the morningModafinil 200 mg tablet Active 200 MG PO Daily February 18, 2025 11:45am FreeTextSig: TAKE 1 TABLET BY MOUTH IN THE MORNING daily Oral; Note: Source Status: Taking; Refills: 1; Qty: 30 Each; Provider: PENNY ACOSTA Complies with drug therapy Start: 28-49-0495sjeq 1 tablet by mouth once dailymodafinil (Provigil) 200 MG tablet Indications: Hypersomnia Take 1 tablet (200 mg) by mouth Daily 30 tablet 2 07/02/2024 ActiveStart: 04-19-2023 End: 38-98-6536gmcn 1 tablet by mouth once daily in the morningModafinil 200 mg tablet Discontinued 200 MG PO Daily June 04, 2024 1:00am December 31, 2024 4:01pm FreeTextSig: TAKE 1 TABLET BY MOUTH IN THE MORNING daily Oral; Note: Source Status: Taking; Refills: 1; Qty: 30 Each; Provider: PENNY ACOSTA Completed/Discontinued Medications MedicationDrug Class(es)DatesSig (Normalized)Sig (Original)acetaminophen 325 mg oral tablet (2 sources)Start: 09-30-2024 End: 19-58-7100147 mg, ORAL, NEEDED, 1 dose, Starting on Sun09/30/24 at 1012, Until Sun10/01/24 at 0303, Mild Pain (1-3) - Enteral, If ordered PRN for pain, patient/guardian may elect to receive this medication for higher pain levels INSTEAD of the opioid, if preferred: YesStart: 09-30-2024 End: ,000 mg, ORAL, DIRECTED, Starting on Sun09/30/24 at 0800, Until Sun09/30/24 at 0959, pre o[ med, UlqsblugtgfbFcf5549-Gra Wno-Qpht-Kbs-Asb-C (1 source)Osmotic Laxative, Vitamin CStart: 05-21-2024 End: 66-17-6883Dmo3722-Sod Gqi-Hikl-Irg-Asb-C (Plenvu) 140-9-5.2 gram powder in packet, sequential Discontinued 140 ML PO .COMPLEX 1 1 May 21, 2024 1:00am February 18, 2025 10:24am First does at 4pm the day before the colonoscopy; second dose at 11pm the night before the colonoscopy.calcium chloride 0.0014 meq/ml / potassium chloride 0.004 meq/ml / sodium chloride 0.103 meq/ml / sodium lactate 0.028 meq/ml injectable solution (2 sources)Start: 09-30-2024 End: 76-42-4486vkoy 30 mL intravenously every hour30 mL/hr, INTRAVENOUS, CONTINUOUS, Starting on Sun09/30/24 at 1030, Until Sun10/01/24 at 0303codeine phosphate 2 mg/ml / promethazine hydrochloride 1.25 mg/ml oral solution (1 source)Opioid Agonist, PhenothiazineStart: 06-10-2020 End: 66-06-8260tlcc 1 mL by mouth every six hours as needed for cough Promethazine-Codeine 6.25-10 mg/5 mL syrup Discontinued 10 ML PO Q6H as needed for cough 120 4 June 10, 2020 1:00am June 04, 2024 8:44am diphenhydrAMINE (1 source)Histamine-1 Receptor AntagonistStart: 09-30-2024 End: 03-58-515198 mg, INTRAVENOUS, NEEDED, 1 dose, Starting on Sun09/30/24 at 1012, Until Sun10/01/24 at 0303, Nausea/Vomiting - Second Line - Parenteral1 ml fentaNYL 0.05 mg/ml injection (2 sources)Opioid AgonistStart: 09-30-2024 End: 85-83-858358 mcg, INTRAVENOUS, NEEDED, Starting on Sun09/30/24 at 1012, Until Sun10/01/24 at 0303, FIRST LINE THERAPY for moderate or severe pain, FIRST LINE THERAPY Every5-10 minutes, To a Maximum Total Dose of 250 mcg Hold for respiratory rate less than 10 USE FOR MODERATE PAIN ONLY IF PATIENT IS UNABLETO TOLERATE ORAL THERAPYStart: 08-07-2023 End: 94-37-6672chqlkCUD PF (Sublimaze) injection 50 mcghydroCHLOROthiazide 25 mg oral tablet (1 source)Thiazide DiureticStart: 06-10-2020 End: 63-81-2092ejto 1 tablet by mouth once dailyHydrochlorothiazide 25 mg tablet Discontinued 25 MG PO Daily June 10, 2020 1:00am June 04, 2024 8:44amKetorolac Tromethamin (1 source)Start: 72-38-2730Wkmribfff Tromethamin Dec, 60 mglevoFLOXacin 750 mg oral tablet (1 source)Quinolone AntimicrobialStart: 06-10-2020 End: 39-21-9527ally 1 tablet by mouth once dailyLevofloxacin 750 mg tablet Discontinued 750 MG PO Daily June 10, 2020 1:00am June 04, 2024 8:43am1 ml meperidine hydrochloride 50 mg/ml cartridge (1 source)Opioid AgonistStart: 09-30-2024 End: 61-96-331905.5 mg, INTRAVENOUS, EVERY 10 MINUTES NEEDED, 2 doses, Starting on Sun09/30/24 at 1012, Until Sun10/01/24 at 0303, for shivering, May Repeat 12.5 mg in 10 minutes X1 for Continued ShiveringpredniSONE 10 mg oral tablet (1 source)Start: 06-10-2020 End: 82-40-5406qwnw 5 tablets by mouth once dailyPrednisone 10 mg tablet Discontinued 50 MG PO Daily June 10, 2020 1:00am June 04, 2024 8 :43am dose packpromethazine hydrochloride 12.5 mg oral tablet (1 source)PhenothiazineStart: 09-30-2024 End: 02-71-6113cxpz 1 dose by mouth once12.5 mg, ORAL, ONCE, 1 dose, On Sun09/30/24 at 0800, PreprocedureStart: 09-30-2024 End: 74-31-5572arag 1 dose by mouth once12.5 mg, ORAL, ONCE, 1 dose, On Sun09/30/24 at 0800, Preprocedure0.25 mg, 0.5 mg dose 1.5 ml semaglutide 1.34 mg/ml pen injector (5 sources) End: 79-77-8874vjyojhceebv (Ozempic) 2 MG/1.5ML solution pen-injector Inject under the skin 06/09/2024 DiscontinuedSemaglutide (1 source)Start: 02-18-2025 End: 56-82-2458kuhiyu 2 mg by subcutaneous injection every weekSemaglutide 2 mg/dose (8 mg/3 mL) pen injector Discontinued 2 MG SUBCUT every week February 182:00am February 18, 2025 11:24am Problems Active Problems Problem ClassificationProblemDateDocumented DateEpisodic/ChronicAsthma (9 sources)Uncomplicated severe persistent asthma; Translations: [Severe persistent asthma, uncomplicated]Onset: 873222-88-2424EapgbcaMssxqmr tract disease (11 sources)Cholelithiasis without obstruction; Translations: [Calculus of gallbladder without cholecystitis without obstruction]Onset: 09-15-2024 00-36-8149RfazgrvyNictkenmz of lipid metabolism (8 sources)Hyperlipidemia, unspecified; Translations: [Pure hypercholesterolemia]Onset: 791891-03-5444ZtrpyhdVwcznkban hypertension (8 sources)Hypertensive disorder; Translations: [Essential (primary) hypertension]Onset: 270060-94-3466SsdzntvEryycoh and fatigue (1 source)Other fatigue; Translations: [OTHER FATIGUE]Onset: 96-49-3230Hinhzvdm Nutritional deficiencies (1 source)Vitamin D deficiency, unspecified; Translations: [VITAMIN D DEFICIENCY UNSPECIFIED]Onset: 58-81-4768JtorwneSzkef gastrointestinal disorders (1 source)Change in bowel habit; Translations: [Change in bowel habit]Onset: 84-95-0059VwotmluhRnxro injuries and conditions due to external causes (1 source)Closed injury of head; Translations: [Unspecified injury of head, initial encounter]42-92-4572GsbjmaheQtcaz lower respiratory disease (4 sources)Snoring; Translations: [Snoring]09-76-3937DlwzeivqSnvcr lower respiratory disease (2 sources)Wheezing; Translations: [Wheezing]82-41-6800EltgvsqtHoqtx lower respiratory disease (1 source)Dyspnea; Translations: [Shortness of breath]60-98-8536GzxssnejIlxca nervous system disorders (1 source)Narcolepsy; Translations: [Narcolepsy without cataplexy]12-31-2024 ChronicOther nervous system disorders (1 source)Postoperative pain ; Translations: [Other acute postprocedural pain] 61-01-5045GfxssoipYtfjh upper respiratory disease (2 sources)Chronic rhinitis; Translations: [Chronic rhinitis]32-51-3428Goajshm Other upper respiratory infections (2 sources)Recurrent sinusitis; Translations: [Chronic sinusitis, unspecified] 40-96-8028NpbjgahBwootcpb codes; unclassified (4 sources)Hypersomnia; Translations: [Hypersomnia, unspecified]04-16-2024 ChronicResidual codes; unclassified (4 sources)Obstructive sleep apnea syndrome; Translations: [Obstructive sleep apnea (adult) (pediatric)]39-14-5949KnljohhOqjuleow codes; unclassified (7 sources)Sleep apnea; Translations: [Sleep apnea, unspecified]Onset: 095566-11-5695PepjxazLaeasobe codes; unclassified (2 sources)Daytime somnolence; Translations: [Other hypersomnia]02-18-2025 ChronicResidual codes; unclassified (2 sources)Amnesia; Translations: [Other amnesia]28-19-9066ImgmreecQsplazwl codes; unclassified (1 source)Postoperative state; Translations: [Other specified postprocedural states]17-28-4799IjcfnpojXhqktnz and strains (1 source)Strain of muscle, fascia and tendon of lower back, initial encounter EpisodicThyroid disorders (8 sources)Hypothyroidism, unspecified; Translations: [Hypothyroidism]Onset: 810998-67-8237QtbtidwNpwipkwgainj (3 sources)CONTACT W/AND (SUSP) EXPOS COVID-19; Translations: [CONTACT W/AND (SUSP) EXPOS COVID-19]Onset: 65-33-7407Hkyrlxzazzdx (1 source)COUGH, UNSPECIFIED; Translations: [COUGH, UNSPECIFIED]Onset: 50-46-7540Qiine infection (1 source)Disease caused by 2019-nCoV; Translations: [COVID-19]06-10-2020 Episodic Past or Other Problems Problem ClassificationProblemDateDocumented DateEpisodic/ChronicE Codes: Fall (3 sources)Fall; Translations: [Unspecified fall, initial encounter]Onset: 128494-68-5968CzsfobcfBitmxnvfhggtx and screening for infectious disease (1 source)Encounter for screening for human papillomavirus (HPV); Translations: [ENC SCREENING HUMAN PAPILLOMAVIRUS]Onset: 02-00-4895SecuwkdoFsdga circulatory disease (1 source)Other specified symptoms and signs involving the circulatory and respiratory systems; Translations:[OTH SPEC SX SIGNS INVLV CIRC RS]Onset: 61-59-6223XvelubzzPjzhi injuries and conditions due to external causes (2 sources)Unspecified injury of head, initial encounter; Translations: [Unspecified injury of head, initial encounter]Onset: 87-31-2946WumoelwdVmfga screening for suspected conditions (not mental disorders or infectious disease) (4 sources)Encounter for screening for malignant neoplasm of cervix; Translations: [ENC SCREENING MALIG NEOPLASM CERV]Onset: 61-38-7247Ibuadkfc Unclassified (1 source)CONTACT W/AND (SUSP) EXPOS COVID-19; Translations: [CONTACT W/AND (SUSP) EXPOS COVID-19]Onset: 01-04-2022 Results Test NameValueInterpretationReference EdrfjXzcufhag47xg 21-34-995264Ydoapegnj ERCP/Gallbladder duct stone 06/03/25 @0930, [facility], Dr. Lopez. Ref in media 05/11/25, Dr. Vernon.[facility], IncTelephoneon [id number] Praveena Dacosta 1965 F Date Provider Department Center 05/22/2025 [facility] GEORGEJulia No family history on fileNormalUniversOhioHealth Marion General HospitalCNOVon 05-51-7845BCGOZixjkn Visit (LEIDY) PRAVEENA DACOSTA ([id number]) 1965 F Date Time Provider Department 10/16/24 8:30 AM JNOO GONZALEZ III During your visit today, we [...] III, MD Referring Provider: JONO GONZALEZ III [[id number]] Allergies As of Date: 10/16/2024 Noted Allergy [...] Encounter Status:Closed by JONO GONZALEZ III on 10/16/24[facility] DaytonPNon 25-57-0118TSEDHvfnuhvwa (GENSAV) PRAVEENA DACOSTA ([id number]) 1965 F Date Time Provider Department 10/02/24 [...] 09/15/2024 Encounter Status:Closed by SHWETA HSU on 10/02/24[facility] POSTPROC EVALon 14-35-8889DMFR POSTPROC EVALHNO ID: [id number] Author: GALEN MOON MD Service: Anesthesiology Author Type: Anesthesiologist Type: Anesthesia Postprocedure Evaluation Filed: 09/30/2024 10:42 Note Text: POST ANESTHESIA EVALUATION NOTE : 1965 Procedure Summary Date: 09/30/24 Room / Location: [address] Anesthesia Start: 911 Anesthesia Stop: 958 [...] September 30, 2024 TIME: 10:41 AM CSN: [id number] Health [facility] PRE-OPon 70-13-0394DLKX PRE-OPHNO ID: [id number] Author: GALEN MOON MD Service: Anesthesiology Author Type: Anesthesiologist Type: Anesthesia Preprocedure Evaluation Filed: 09/30/2024 08:06 Note Text: ANESTHESIOLOGY DAY OF SURGERY NOTE : 1965 Procedure Information Date/Time: 09/30/24829 Procedure: LAPAROSCOPIC CHOLECYSTECTOMY WITH GRAMS (Gallbladder) Location: [place] [address] / [facility] Surgeons: Jono Gonzalez III, MD Estimated body [...] and consent discussed: yes. Patient / Responsible Constitution Party agrees to proceed: yes Patient / [...] September 30, 2024 TIME: 8:06 AM CSN: [id number] Memorial HospitalEC COMPLETEon 72-29-5976ETG COMPLETEVentricular Rate : 56 BPM Atrial Rate : 56 BPM P-R Interval : 166 ms QRS Duration : 78 ms Q-T Interval : 446 ms QTC Calculation(Bazett) : 430 ms Calculated P [place] : 20 degrees Calculated R [place] : 46 degrees Calculated T [place] : 21 degrees SINUS BRADYCARDIA OTHERWISE NORMAL ECG Confirmed by JAMISON KEY DO ([id number]) on 10/05/2024 10:51:14 AM NAME : PRAVEENA DACOSTA PID : [id number] : 1965 Gender : Female Race : Unknown ORD : [id number] Procedure Date : Sep 30 2024 10:28:37 Edit Date : Oct 05 2024 10:51:15 Diagnosis: SINUS BRADYCARDIA OTHERWISE NORMAL ECG Confirmed by JAMISON KEY DO ([id number]) on 10/05/2024 10:51:14 AM Test Reason : Chest Pain Location : 145 : LOCARD [id number] Overread By : JAMISON KEY DO Edited By : JAMISON KEY DO Referred By : JONO GONZALEZ III Acquired by : Logan l[facility]Mer[facility] PHYSICALon 09-30-2024 HISTORY PHYSICALHNO ID: [id number] Author: JONO GONZALEZ III, MD Service: General [...] Dacosta DATE: September 30, 2024 TIME: 8:39 AMNormalCleveland Clinic Medina HospitalOPERATIVE NOon [id number] NOHNO ID: [id number] Author: JONO GONZALEZ III, MD Service: General Surgery Author Type: Physician Type: Operative Report Filed: 09/30/2024 09:46 Note Text: OPERATIVE REPORT LOG ID: [id number] SURGERY/PROCEDURE DATE: 09/30/2024 INCISION/PROCEDURE START TIME: 9:27 AM INCISION CLOSE/PROCEDURE END TIME: 9:44 AM SURGEON: Jono Gonzalez III, MD RIG MECHANIC: Yesenia Monson PA-C OPERATION: Laparoscopic cholecystectomy (51104). ANESTHESIA: GETA and 20 mL of 0.5% [...] Dacosta DATE: September 30, 2024 TIME: 9:45 AMNormalCleveland Clinic Medina HospitalPathology biopsy report Bobo (Tiss) on 04-40-5625QO DISCLAIMERNormalCMartin Memorial HospitalComment on above:Order Comment: Specimen Type: TISSUE SPECIMENOrdering Facility: [facility] Address: [address] [place], [place] [address] Comment: Laboratory Developed Test (LDT) Disclaimer: Performance characteristics of immunohistochemical, immunofluorescent, and chromogenic in-situ hybridization tests have been determined by the performing laboratory within [facility]'s [facility] Pathology and Laboratory Medicine Department ([facility], [facility], [facility], [facility], [facility], [facility], or [facility]) in a manner consistent with CLIA requirements. One or more of these tests may not have been cleared or approved by the FDA. [facility] is regulated under CLIA as qualified to perform high- complexity testing. These tests are used for clinical purposes. These should not be regarded asinvestigational or for research. Positive and negative controls stain appropriately.Performed By: #### [id number] ####[facility] LABCLIA [id number] [address]ETCASE REPORTNoMain Campus Medical Center on above:Order Comment: Specimen Type: TISSUE SPECIMENOrdering Facility: [facility] Address: [address] [place] [address] Comment: Surgical Pathology Report Case: [id number] Authorizing Provider: Jono Gonzalez III, MD Collected: 09/30/2024 09:31 AM Ordering Location: Ambulatory Surgery Received: 09/30/2024 10:52 AM Pathologist: Darcy Hernández MD, PhD Specimen: GallbladderPerformed By: #### [id number] ####[facility] LABIA [id number] [address]CLINICAL HISTORYNoMain Campus Medical Center on above:Order Comment: Specimen Type: TISSUE SPECIMENOrdering Facility: [facility] Address: [address] [place], [place] [address]Result Comment: Pre-op diagnosis: Calculus of gallbladder without cholecystitis without obstruction [K80.20] Performed By: #### 65359-9 ####[facility] LABIA [id number] [address] FINAL DIAGNOSISNoMain Campus Medical Center on above:Order Comment: Specimen Type: TISSUE SPECIMENOrdering Facility: [facility] Address: [address] [place], [place] [address]Result Comment: A. Gallbladder, cholecystectomy: - Chronic cholecystitis with cholelithiasis and cholesterolosis. at 1550 EDTPerformed By: #### 11470-9 ####[facility] LABCLIA [id number] [address] [address] [place] OF [facility] HOSPITALFINAL PERFORMING LAB NormalWood County Hospital on above:Order Comment: Specimen Type: TISSUE SPECIMENOrdering Facility: [facility] Address: [address] [place], [place] [address]Result Comment: Diagnostic interpretation performed at: [facility], [address] [place] [address] CLIA# [id number] Shop Tailor Apprentice: MARYLIN Rodriguezerformed By: #### [id number] ####[facility] LABCLIA [id number] [address] [address] [facility]ORIAL HOSPITALGROSS DESCRIPTIONA. GallbladderNormalCOhioHealth Grove City Methodist [facility] on above:Order Comment: Specimen Type: TISSUE SPECIMENOrdering Facility: [facility] Address: [address] [place], [place] [address]Result Comment: Received in formalin labeled gallbladder is [...] The cystic duct lumen is not obstructed. Rod Placer sections are submitted in one cassette. Z 09/30/24 5:34 PM Gross examination performed at [facility], [address] [place], [place] [address]Performed By: #### 73159-4 ####[facility] LABCLIA [id number] [address] [address] [place] HISTORY PHYSICALon [id number] PHYSICALHNO ID: [id number] Author: GEOVANY MORELAND APRN.MAIL READER Service: ? Author Type: Nurse Practitioner Type: [...] Had COVID infection 08/31/24, was treated at [facility]. Today she is asymptomatic, Lungs CTA, [...] STOP-Bang Score: 0 (JANIS CPAP compliant ) [id number] Score: Age: <65 Sex: female CHF history: No Hypertension history: Yes Stroke/TIA/thromboembolism history: No Vascular disease history: No Diabetes history: No NAY7GB2-PSFv Score: 2 ARISCAT Score: Age: 51-80 Preoperative [...] fevers. 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 No neurological symptoms or problems. Respiratory: Positive for JANIS CPAP compliant, asthma , Negative for Current cough, Pneumonia within 6 weeks (date) Cardiovascular: Positive for: HTN, HLD, Negative for CAD, Chest Pain, CHF, DVT/PE GI: Positive for Symptomatic cholelithiasis, Negative for Nausea, Vomiting, Abdominal pain, Difficulty swallowing : No (more content not included)...NormalAdena Regional Medical CenterPNon [id number] (GENSAV) PRAVEENA DACOSTA ([id number]) 1965 F Date Time Provider Department 09/15/24 JONO GONZALEZ III [place] During your visit today, we recorded [...] obstruction [K80.20] Order(s):SURGICAL REQUEST - ELECTIVE (02/2020) [9121402] Order #: [id number]: 1 Prescriptions as of 09/17/2024 - albuterol [...] 09/15/2024 Encounter Status:Closed by MARILOU ROGER on 09/17/24[facility] [id number] Visit (MELISSA) PRAVEENA DACOSTA ([id number]) 1965 F Date Time Provider Department 09/12/24 [...] was discussed with the patient or authorized customer service representative. The patient or authorized customer service representative has agreed to proceed [...] given. Attending note: Patient seen by Shweta Mona, RN and myself. I personally examined the [...] Encounter Status:Closed by JONO GONZALEZ III on 09/12/24NoSelect Medical Specialty Hospital - CincinnatiTORY PHYSICALon [id number] PHYSICALHNO ID: [id number] Author: JONO GONZALEZ III, MD Service: ? [...] was discussed with the patient or authorized customer service representative. The patient or authorized customer service representative has agreed to proceed [...] III, MD cc: Referring provider Elgin Pelayo MDSelect Medical [facility] Clinic [facility] Hospital, AvonPNon [id number] (GENSAM) PRAVEENA DACOSTA ([id number]) 1965 F Date Time Provider Department 09/11/24 [...] an update but nothing showing yet. Shweta Hsu RN 09/11/2024 3:56 PM Signed Called referring [...] (None) Encounter Status:Closed by SHWETA HSU on 09/11/24[facility] [id number] (PULMLO) PRAVEENA DACOSTA ([id number]) 1965 F Date Time Provider Department 08/14/24 ELGIN PELAYO PULMLZach During your visit today, we recorded the following information about you: Mattie Link MA 08/14/2024 10:59 AM Signed Elgin Pelayo MD P Pul Nurse Could we try to obtain images of CT chest 02/13/2024 from [facility] in [facility]? Thanks Mattie Link MA 08/14/2024 11:49 AM Signed Faxed image request to [facility] Confirmation received Mattie Link MA 08/19/2024 8:52 AM Signed Image has been imported into [facility] and is available to view. Elgin Pelayo [...] (None) Encounter Status:Closed by MATTIE LINK on 08/19/24NoMadison Health [id number] Visit (PULMLO) PRAVEENA DACOSTA ([id number]) 1965 F Date Time Provider Department 08/12/24 1:00 PM ELGIN PELAYO PULMLZach During your visit today, we recorded the following information about you: Pulse Blood pressure Weight 83/minute 123/83 77.2 kg Elgin Pelayo MD 08/14/2024 10:50 AM Signed . [facility] Initial Visit Note Ms. Dacosta is a 59 year old female who presents to the [facility]. Consultation requested by Rakesh Vernon MD for [...] getting sick again Evaluated for immunodeficiency by Tire Setter at [facility]. On 06/09/2024. Had PFTs. FENO 12ppb. FEV1 [...] personally reviewed by me Data Reviewed from [facility] (in addition to that noted in HPI, and Past histories above): (Data from patient's OSH mychart shown on phone) CBC: last eos 100 (05/2024) IgE: 45 (wnl) PFT: 08/01/2024 Ratio 75% (normal) FEV1 120%, FVC 125% Reported positive bronchodilator response based on FEF 25-75. RV 129% (high) TLC 133% (high) DLCOc 10 3% (normal) CT Chest: 02/13/2024 (OSH, images unavailable) - [facility] in [facility] Lung: Scattered linear densities and calcifications, chronic scarring is favored. Mild dependent atelectasis. No focal parenchymal infiltrates or significant pulmonary nodules. Pleura: No mass, effusion, pneumothorax Lizeth: Small calcified right hilar lymph nodes. Assessment and Plan: Ms. Dacosta is a 59 year old female who presents to the [facility] for evaluation of bronchitis. #Recurrent bronchitis #Asthma (more content not included)...NormalCleveland Clinic Medina HospitalHISTORY PHYSICALon [id number] PHYSICALHNO ID: [id number] Author: ELGIN PELAYO MD Service: ? Author Type: Physician Type: H&P Filed: 08/14/2024 10:50 Note Text: . [facility] Initial Visit Note Ms. Dacosta is a 59 year old female who presents to the [facility]. Consultation requested by Rakesh Vernon MD for [...] getting sick again Evaluated for immunodeficiency by Tire Setter at [facility]. On 06/09/2024. Had PFTs. FENO 12ppb. FEV1 [...] personally reviewed by me Data Reviewed from [facility] (in addition to that noted in HPI, and Past histories above): (Data from patient's OSH mychart shown on phone) CBC: last eos 100 (05/2024) IgE: 45 (wnl) PFT: 08/01/2024 Ratio 75% (normal) FEV1 120%, FVC 125% Reported positive bronchodilator response based on FEF 25-75. RV 129% (high) TLC 133% (high) DLCOc 10 3% (normal) CT Chest: 02/13/2024 (OSH, images unavailable) - [facility] in [facility] Lung: Scattered linear densities and calcifications, chronic scarring is favored. Mild dependent atelectasis. No focal parenchymal infiltrates or significant pulmonary nodules. Pleura: No mass, effusion, pneumothorax Lizeth: Small calcified right hilar lymph nodes. Assessment and Plan: Ms. Dacosta is a 59 year old female who presents to the [facility] for evaluation of bronchitis. #Recurrent bronchitis #Asthma Description of these bronchitis episodes-recurrent, only present after initial COVID infection, never associated with fever or systemic symptoms- is more consistent with exacerbation of airway inflammation/asthma. 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 (more content not included)...NormalMer[facility] W Auto Differential panel (Bld)on 81-46-4162Rxxiguasz (Bld) [#/Vol] 0.1 10*3/uLNOMS HealthcareBasophils/100 WBC (Bld)1 %Not Estab.[facility] Eosinophils (Bld) [#/Vol]0.1 10*3/uLNOMS HealthcareEosinophils/100 WBC (Bld)1 % Not Estab.[facility] HospitalErythrocyte distribution width (RBC) [Ratio]12.9 %11.7 - 15.4 %[facility] HospitalHematocrit (Bld) [Volume fraction]44.5 %34.0 - 46.6 %[facility] HospitalHemoglobin (Bld) [Mass/Vol]14.9 g/dL11.1 - 15.9 g/dLGolden Valley Memorial Hospital Immature granulocytes (Bld) [#/Vol]0 10*3/uLNOMS HealthcareImmature granulocytes/100 WBC (Bld)0 %Not Estab.[facility] HospitalLymphocytes (Bld) [#/Vol] 2.7 10*3/uLNOMS HealthcareLymphocytes/100 WBC (Bld)28 %Not Estab.[facility] MCH (RBC) [Entitic mass]29.7 pg26.6 - 33.0 pgEastern Missouri State HospitalHC (RBC) [Mass/Vol]33.5 g/dL31.5 - 35.7 g/dLGolden Valley Memorial HospitalMCV (RBC) [Entitic vol]89 fL79 - 97 fLGolden Valley Memorial HospitalMonocytes (Bld) [#/Vol]0.5 10*3/uLNOMS Healthcare Monocytes/100 WBC (Bld)5 %Not Estab.[facility] HealthcareNeutrophils (Bld) [#/Vol]6.3 10*3/uLNOMS HealthcareNeutrophils/100 WBC (Bld)65 %Not Estab.[facility] Platelets (Bld) [#/Vol]327 10*3/uLNOMS HealthcareRBC (Bld) [#/Vol]5.02 10*6/uL [facility] HealthcareWBC (Bld) [#/Vol]9.8 10*3/uLMOUNTAIN WEST MEDICAL CENTER HealthcareComment on above: Effective June 16, 2024 profile [id number] WBC will be made non-orderable as a stand-alone order code. Diphtheria / Tetanus Antibody Panelon 06-13-2024. diphtheriae Ab IA Qn (S)<0.10 LowNITurkey Creek Medical CenterComment on above:Interpretation: Non-Protective <0.10 Protective >=0.10 For research use only. C. tetani toxoid IgG IA Qn0.71NIBURBANK HOSPITAL HealthcareComment on above: Interpretation: Non-Protective <0.10 Protective >=0.10 Results for this test are for research purposes only by the assay's clerk typist. The performance characteristics of this product have not been established. Results should not be used as a diagnostic procedure without confirmation of the diagnosis by another medically established diagnostic product or procedure. IgAon 10-51-1333ZtR [Mass/Vol]346 mg/dL87 - 352 mg/dLMOUNTAIN WEST [facility]ICAL [facility]ENTER HealthcareIgEon 24-65-8862OqL Qn45 [IU]/LNOMS HealthcareIgGon 19-42-9879GaP [Mass/Vol]915 mg/dL 586 - 1602 mg/dLNOSC HealthcareIgMon 48-19-7310LzZ [Mass/Vol]123 mg/dL26 - 217 mg/dLGolden Valley Memorial HospitalNo Panel Informationon 12-33-3551Pponvienaqnuex and review of laboratory resultsAbMcLaren Lapeer RegionPerformed at: 01 - [address] [id number] Fundraising Manager: Red Duque PhD, Phone: [phone] Hospital Performed at: 03 - Labco[address] [id number] Fundraising Manager: Earnest Gupta MD, Phone: [phone] AB (23 SEROTYPE)on 06-13-2024S. pneumoniae Ugandan type 1 IgG IA (S) [Mass/Vol]<0.1Low 1.3 - PINF ug/mLNOMS HealthcareS. pneumoniae Ugandan type 10A IgG IA (S) [Mass/Vol]<0.1Low1.3 - PINF ug/mLNOMS HealthcareS. pneumoniae Ugandan type 11A IgG IA (S) [Mass/Vol]<0.1Low1.3 - PINF ug/mLNOMS HealthcareS. pneumoniae Ugandan type 12F IgG IA (S) [Mass/Vol]<0.1Low1.3 - PINF ug/mLNOMS HealthcareS. pneumoniae Ugandan type 14 IgG IA (S) [Mass/Vol]<0.1Low1.3 - PINF ug/mLNOMS HealthcareS. pneumoniae Ugandan type 15B IgG IA (S) [Mass/Vol]<0.2Low1.3 - PINF ug/mLNOMS HealthcareS. pneumoniae Ugandan type 17F IgG IA (S) [Mass/Vol]0.7 ug/mL Low1.3 - PINF ug/mLNOMS HealthcareS. pneumoniae Ugandan type 18C IgG IA (S) [Mass/Vol]<0.1Low1.3 - PINF ug/mLNOMS HealthcareS. pneumoniae Ugandan type 19A IgG IA (S) [Mass/Vol]0.5 ug/mLLow1.3 - PINF ug/mLNOMS HealthcareS. pneumoniae Ugandan type 19F IgG IA (S) [Mass/Vol]0.3 ug/mLLow1.3 - PINF ug/mLNOMS Healthcare S. pneumoniae Ugandan type 2 IgG IA (S) [Mass/Vol]<0.2Low1.3 - PINF ug/mLNOMS HealthcareS. pneumoniae Ugandan type 20A IgG IA (S) [Mass/Vol]0.2 ug/mLLow1.3 - PINF ug/mLNOMS HealthcareS. pneumoniae Ugandan type 22F IgG IA (S) [Mass/Vol]0.1 ug/mLLow1.3 - PINF ug/mLNOMS HealthcareS. pneumoniae Ugandan type 23F IgG IA (S) [Mass/Vol]<0.1Low1.3 - PINF ug/mLNOMS HealthcareS. pneumoniae Ugandan type 3 IgG IA (S) [Mass/Vol]<0.1Low1.3 - PINF ug/mLNOMS HealthcareS. pneumoniae Ugandan type 33F IgG IA (S) [Mass/Vol]0.8 ug/mLLow1.3 - PINF ug/mLNOMS HealthcareComment on above:*This test was developed and its performance characteristics determined by [employer]. It has not been cleared or approved by the U.S. Food and Drug Administration. FLAG Interpretation: A = Abnormal, H = High, L = Low S. pneumoniae Ugandan type 4 IgG IA (S) [Mass/Vol]<0.1Low1.3 - PINF ug/mLNOMS HealthcareS. pneumoniae Ugandan type 5 IgG IA (S) [Mass/Vol]0.7 ug/mLLow1.3 - PINF ug/mLNOMS HealthcareS. pneumoniae Ugandan type 6B IgG IA (S) [Mass/Vol]<0.1 Low1.3 - PINF ug/mLNOMS HealthcareS. pneumoniae Ugandan type 7F IgG IA (S) [Mass/Vol]<0.1Low1.3 - PINF ug/mLNOMS HealthcareS. pneumoniae Ugandan type 8 IgG IA (S) [Mass/Vol]10.7 ug/mL1.3 - PINF ug/mLNOMS HealthcareS. pneumoniae Ugandan type 9N IgG IA (S) [Mass/Vol]<0.1Low1.3 - PINF ug/mLNOMS HealthcareS. pneumoniae Ugandan type 9V IgG IA (S) [Mass/Vol]<0.1Low1.3 - PINF ug/mLNOMS Healthcare Performed at: - [employer] [address], [facility] [address], [place] [id number] Fundraising Manager: EBER Gutierrez PhD, Phone: [phone] [facility] 83-67-9618XlwTfeemxJoint Township District Memorial Hospital W Auto Differential panel (Bld)on 43-17-3915Rkirejpre (Bld) [#/Vol]0.03 10*3/[facility] Basophils/100 WBC (Bld)0.4 %0.0 - 2.0 %[facility] Eosinophils (Bld) [#/Vol]0.06 10*3/[facility] Eosinophils/100 WBC (Bld)0.9 %0.0 - 6.0 %[facility] Erythrocyte distribution width (RBC) [Ratio]13.2 %11.5 - 14.5 %[facility] HospitalHematocrit (Bld) [Volume fraction]41.6 %36.0 - 46.0 % [facility] HospitalHemoglobin (Bld) [Mass/Vol]13.8 g/dL12.0 - 16.0 g/dLUnLouis Stokes Cleveland VA Medical CenterImpershing memorial hospital granulocytes (Bld) [#/Vol]0.07 10*3/[facility] Health SystemImpershing memorial hospital granulocytes/100 WBC (Bld)1.0 % High0.0 - 0.9 %[facility] on above:Immature Granulocyte Count (IG) includes promyelocytes, myelocytes and metamyelocytes but does not include bands. Percent differential counts (%) should be interpreted in the context of the absolute cell counts (cells/UL).Interpretation and review of laboratory resultsAbnormalUCleveland Clinic Akron General Lodi HospitalLymphocytes (Bld) [#/Vol]2.17 10*3/[facility]orial Health SystemLymphocytes/100 WBC (Bld) 32.1 %13.0 - 44.0 %[facility] CenterH (RBC) [Entitic mass]29.6 pg26.0 - 34.0 pgUnMadison HealthHC (RBC) [Mass/Vol]33.2 g/dL 32.0 - 36.0 g/dLUnMadison HealthV (RBC) [Entitic vol]89 fL80 - 100 fLUniSalem Regional Medical CenterMonocytes (Bld) [#/Vol]0.32 10*3/uL [facility] HospitalMonocytes/100 WBC (Bld)4.7 %2.0 - 10.0 % [facility] HospitalNeutrophils (Bld) [#/Vol]4.12 10*3/[facility] on above:Percent differential counts (%) should be interpreted in the context of the absolute cell counts (cells/uL). Neutrophils/100 WBC (Bld)60.9 %40.0 - 80.0 %[facility] Nucleated RBC/100 WBC (Bld) [Ratio]0.0 %[facility] Platelets (Bld) [#/Vol]234 10*3/[facility]orial Health SystemRBC (Bld) [#/Vol]4.66 10*6/uLUniversity Hospitals of ClevelandWBC (Bld) [#/Vol]6.8 10*3/uL [facility] HospitalUnLouis Stokes [facility] VA Medical CenterBasophils (Bld) [#/Vol]0.03 x10*3/uLNormal0.00-0.10[facility] CenterComment on above:Performed By: #### 00304-3 #### MIK FREITAS ([id number]) [facility] ([facility]) [address] [place], [place] [address]Dkuwlcyzz/100 WBC (Bld)0.4 %Normal0.0-2.0[facility] Medical CenterComment on above:Performed By: #### 98836-2 #### MIK FREITAS ([id number]) [facility] ([facility]) [address] [place], [place] [address]Kglhglnexdb (Bld) [#/Vol]0.06 x10*3/uLNormal0.00-0.70 [facility] CenterComment on above:Performed By: #### 51125-8 #### MIK FREITAS ([id number]) [facility] ([facility]) [id number] [place] [address]Extjukvkbkw/100 WBC (Bld)0.9 %Normal0.0-6.0[facility] Medical CenterComment on above:Performed By: #### 67256-0 #### MIK FREITAS ([id number]) [facility] ([facility]) [id number] [place] [address]Euxlmnugdoi distribution width (RBC) [Ratio]13.2 %Normal 11.5-14.5[facility] Medical CenterComment on above:Performed By: #### 26965-7 #### MIK FREITAS ([id number]) [facility] ([facility]) [address] [place], [place] [address]Emptbnbccx (Bld) [Volume fraction]41.6 %Itnxze94.0-46.0 [facility] CenterComment on above:Performed By: #### 86581-7 #### MIK FREITAS ([id number]) [facility] ([facility]) [address] [place], [place] [address]Ihopyagnev (Bld) [Mass/Vol]13.8 g/gFKhfyqa35.0-16.0[facility] CenterComment on above:Performed By: #### 80923-4 #### MIK FREITAS ([id number]) [facility] ([facility]) [address] [place] [address]Yksknndz granulocytes (Bld) [#/Vol]0.07 x10*3/uLNormal 0.00-0.70[facility] CenterComment on above:Performed By: #### 82172-4 #### MIK FREITAS ([id number]) [facility] ([facility]) [address] [place] [address]Xkuuvlyy granulocytes/100 WBC (Bld)1.0 %High0.0-0.9UnKettering Health Washington TownshipComment on above:Result Comment: Immature Granulocyte Count (IG) includes promyelocytes, myelocytes and metamyelocytes but does not include bands. Percent differential counts (%) should be interpreted in the context of the absolute cell counts (cells/UL).Performed By: #### 01283-9 #### MIK FREITAS ([id number]) [facility] ([facility]) [id number] [place] [address]Kiohdjxwgdk (Bld) [#/Vol]2.17 x10*3/uLNormal1.20-4.80 [facility] CenterComment on above:Performed By: #### 90826-8 #### MIK FREITAS ([id number]) [facility] ([facility]) [address] [place], [place] [address]Hlcuiacdokn/100 WBC (Bld)32.1 %Emoeev66.0-44.0[facility] Medical CenterComment on above:Performed By: #### 49404-1 #### MIK FREITAS ([id number]) [facility] ([facility]) [address] [place], [place] [address]UMU (RBC) [Entitic mass]29.6 tlZpceym95.0-34.0[facility] CenterComment on above:Performed By: #### 67580-7 #### MIK FREITAS ([id number]) [facility] ([facility]) [address] [place], [place] [address]QTBA (RBC) [Mass/Vol]33.2 g/eGFoafwe02.0-36.0UnKettering Health Washington TownshipComment on above:Performed By: #### 08437-7 #### MIK FREITAS (58741) [facility] ([facility]) [address] [place], [place] [address]OJB (RBC) [Entitic vol]89 lAXdpexv36-326SjfwwruhpyKettering Health Washington TownshipComment on above:Performed By: #### 06749-9 #### MIK FREITAS ([id number]) [facility] ([facility]) [address] [place], [place] [address]Djqfrjbon (Bld) [#/Vol]0.32 x10*3/uLNormal0.10-1.00UnKettering Health Washington TownshipComment on above:Performed By: #### 15933-0 #### MIK FREITAS (30289) [facility] ([facility]) [address] [place], [place] [address]Tmsmyezls/100 WBC (Bld)4.7 %Normal2.0-10.0[facility] Medical CenterComment on above:Performed By: #### 64376-3 #### MIK FREITAS (54137) [facility] ([facility]) [address] [place], [place] [address]Sgvocvziguq (Bld) [#/Vol]4.12 x10*3/uLNormal1.20-7.70 [facility] CenterComment on above:Result Comment: Percent differential counts (%) should be interpreted in the context of the absolute cell counts (cells/uL).Performed By: #### 75104-6 #### MIK FREITAS ([id number]) [facility] ([facility]) [address] [place] [address]Lxxovibjcnw/100 WBC (Bld)60.9 %Nroovt34.0-80.0[facility] Medical CenterComment on above:Performed By: #### 30111-1 #### MIK FREITAS (16895) [facility] ([facility]) [address] [place] [address]Aipotsewe RBC/100 WBC (Bld) [Ratio]0.0 /100 WBCsNormal0.0-0.0 [facility] CenterComment on above:Performed By: #### 67908-5 #### MIK FREITAS ([id number]) [facility] ([facility]) [address] [place] [address]Rddpqslqb (Bld) [#/Vol]234 x10*3/gXVjxdbb158-071EhllltzaepKettering Health Washington TownshipComment on above:Performed By: #### 63595-9 #### MIK FREITAS ([id number]) [facility] ([facility]) [address] [place] [address]UMY (Bld) [#/Vol]4.66 x10*6/uLNormal4.00-5.20[facility] CenterComment on above:Performed By: #### 36316-4 #### MIK FREITAS (88741) [facility] ([facility]) [address] [place] [address]TMS (Bld) [#/Vol]6.8 x10*3/uLNormal4.4-11.3[facility] CenterComment on above:Performed By: #### 38854-9 #### MIK FREITAS ([id number]) [facility] ([facility]) [address] [place] [address]II CERVICAL SPINE WO IV CONTRASTon 13-75-7860UH CERVICAL SPINE WO IV CONTRASTInterpreted By: Willy Anderson, STUDY: CT CERVICAL SPINE WO IV CONTRAST; 08/07/2023 9:01 am INDICATION: Signs/Symptoms:Mechanical fall, no thinners, positive LOC. COMPARISON: None. ACCESSION NUMBER(S): [id number] ORDERING CLINICIAN: NEELIMA PERALTA TECHNIQUE: Axial CT [...] Willy Anderson 08/07/2023 9:41 AM Dictation workstation: [id number]ine Barnesville HospitalCT Cervical spine WO contraston 89-50-3408Fz evidence for an acute fracture or subluxation of the cervical spine. MACRO: None Signed by: Willy Anderson 08/07/2023 9:41 AM Dictation workstation: [id number] MMODALInterpreted By: Willy Anderson, STUDY: CT CERVICAL SPINE WO IV CONTRAST; 08/07/2023 9:01 am INDICATION: Signs/Symptoms:Mechanical fall, no thinners, positive LOC. COMPARISON: None. ACCESSION NUMBER(S): [id number] ORDERING CLINICIAN: NEELIMA PERALTA TECHNIQUE: Axial CT [...] are otherwise unremarkable. Lung Apices: Unremarkable. [facility] MMWilly Cyr MD - 08/07/2023 Interpreted By: Willy Anderson, STUDY: CT CERVICAL SPINE WO IV CONTRAST; 08/07/2023 9:01 am INDICATION: Signs/Symptoms:Mechanical fall, no thinners, positive LOC. COMPARISON: None. ACCESSION NUMBER(S): [id number] ORDERING CLINICIAN: NEELIMA PERALTA TECHNIQUE: Axial CT [...] Willy Anderson 08/07/2023 9:41 AM Dictation workstation: [id number] [facility] Work Phone: UnLouis [facility] Work Phone: CT HEAD WO IV CONTRASTon 49-34-3051PX HEAD WO IV CONTRASTInterpreted By: Willy Anderson, STUDY: CT HEAD WO IV CONTRAST; 08/07/2023 9:01 am INDICATION: Signs/Symptoms:Mechanical fall, no thinners, positive LOC. COMPARISON: None. ACCESSION NUMBER(S): [id number] ORDERING CLINICIAN: NEELIMA PERALTA TECHNIQUE: Noncontrast axial [...] Willy Anderson 08/07/2023 9:38 AM Dictation workstation: [id number]ine Barnesville HospitalCT Head WO contraston 47-95-3744Rf acute intracranial hemorrhage, mass effect, or calvarial fracture. MACRO: None Signed by: Willy Anderson 08/07/2023 9:38 AM Dictation workstation: [id number] MMODALInterpreted By: Willy Anderson, STUDY: CT HEAD WO IV CONTRAST; 08/07/2023 9:01 am INDICATION: Signs/Symptoms:Mechanical fall, no thinners, positive LOC. COMPARISON: None. ACCESSION NUMBER(S): [id number] ORDERING CLINICIAN: NEELIMA PERALTA TECHNIQUE: Noncontrast axial [...] Mastoids: Clear. Orbits: Normal. Soft tissues: Unremarkable. Willy Orourke MD - 08/07/2023 Interpreted By: Willy Anderson, STUDY: CT HEAD WO IV CONTRAST; 08/07/2023 9:01 am INDICATION: Signs/Symptoms:Mechanical fall, no thinners, positive LOC. COMPARISON: None. ACCESSION NUMBER(S): [id number] ORDERING CLINICIAN: NEELIMA PERALTA TECHNIQUE: Noncontrast axial [...] Willy Anderson 08/07/2023 9:38 AM Dictation workstation: [id number] [facility] Work Phone: ct Head WO contrastOrdered By: Willy Anderson on 62-97-7059ZldiseniizCleveland Clinic Union Hospital Work Phone: ct THORACIC SPINE WO IV CONTRASTon 66-46-1977ZL THORACIC SPINE WO IV CONTRASTInterpreted By: Willy Anderson, STUDY: CT THORACIC SPINE WO IV CONTRAST; 08/07/2023 9:01 am INDICATION: Signs/Symptoms:Mechanical fall, no thinners, positive LOC, thoracic spinal tenderness. COMPARISON: None. ACCESSION NUMBER(S): [id number] ORDERING CLINICIAN: NEELIMA PERALTA TECHNIQUE: Axial CT [...] Willy Anderson 08/07/2023 9:48 AM Dictation workstation: [id number] Barnesville HospitalCT Thoracic spine WO contraston 01-60-4579Oz acute osseous abnormality of the thoracic spine. Mild chronic appearing anterior wedging of a few scattered thoracic vertebral bodies as above. MACRO: None Signed by: Willy Anderson 08/07/2023 9:48 AM Dictation workstation: [id number] By: Willy Anderson, STUDY: CT THORACIC SPINE WO IV CONTRAST; 08/07/2023 9:01 am INDICATION: Signs/Symptoms:Mechanical fall, no thinners, positive LOC, thoracic spinal tenderness. COMPARISON: None. ACCESSION NUMBER(S): [id number] ORDERING CLINICIAN: NEELIMA PERALTA TECHNIQUE: Axial CT [...] thoracic spinal tenderness. COMPARISON: None. ACCESSION NUMBER(S): [id number] ORDERING CLINICIAN: NEELIMA PERALTA TECHNIQUE: Axial CT [...] Willy Anderson 08/07/2023 9:48 AM Dictation workstation: [id number] [facility] Work Phone: UnLouis [facility] Work Phone: Coagulation tissue factor inducedon 05-26-6139VJ Coag (PPP) [Time]11.1 sNormal9.8-12.8UnKettering Health Washington Township Comment on above:Performed By: #### 5902-2 #### MIK FREITAS ([id number]) [facility] ([facility]) [address] [place], [place] [address]Khxlcghxvcvcv metabolic 2000 panelon 70-53-3000Uqpkcac BCP dye [Mass/Vol]4.7 g/dL3.4 - 5.0 g/dLUnLouis Stokes [facility] VA Medical CenterALP [Catalytic activity/Vol]61 U/L33 - 110 U/[facility]bleALT With P-5'-P [Catalytic activity/Vol]27 U/L7 - 45 U/[facility] PrebleComment on above:Patients treated with Sulfasalazine may generate falsely decreased results for ALT.Anion gap [Moles/Vol]11 mmol/L10 - 20 mmol/[facility] PrebleAST With P-5'-P [Catalytic activity/Vol]23 U/L9 - 39 U/[facility] PrebleBilirubin [Mass/Vol]0.5 mg/dL0.0 - 1.2 mg/dLUnLouis Stokes [facility] VA Medical CenterCalcium [Mass/Vol]9.4 mg/dL8.6 - 10.3 mg/dLCleveland Clinic Union HospitalChloride [Moles/Vol]101 mmol/L98 - 107 mmol/[facility] PrebleCO2 [Moles/Vol]28 mmol/L21 - 32 mmol/[facility] PrebleCreatinine [Mass/Vol]0.75 mg/dL0.50 - 1.05 mg/dLUnLouis Stokes [facility] VA Medical CentereGFR- PINFUniSalem Regional Medical CenterComment on above:Calculations of estimated GFR are performed using the 2020 CKD-EPI Study Refit equation without therace variable for the IDMS-Traceable creatinine methods. https://jasn.asnjournals.org/content/early/ASN.2267367930 Glucose [Mass/Vol]108 mg/qCOevc21 - 99 mg/dLUnLouis Stokes [facility] Center Interpretation and review of laboratory resultsAbnormalUniSalem Regional Medical CenterPotassium [Moles/Vol]3.8 mmol/L3.5 - 5.3 mmol/[facility] PrebleProtein [Mass/Vol]7.8 g/dL6.4 - 8.2 g/dLUnLouis Stokes [facility] VA Medical CenterSodium [Moles/Vol]136 mmol/L136 - 145 mmol/[facility] PrebleUrea nitrogen [Mass/Vol]13 mg/dL6 - 23 mg/dLUnLouis Stokes [facility] VA Medical CenterUnLouis Stokes [facility] Medical CenterAlbumin BCP dye [Mass/Vol]4.7 g/dL Normal3.4-5.0UnKettering Health Washington TownshipComment on above: Performed By: #### 16311-1 #### MIK FREITAS ([id number]) [facility] ([facility]) [address] [place], [place] [address]EGR [Catalytic activity/Vol]61 U/TFoulqg68-193YpmtwivmcdKettering Health Washington TownshipComment on above:Performed By: #### 54543-5 #### MIK FREITAS ([id number]) [facility] ([facility]) [address] [facility], [place] [address]BBF With P-5'-P [Catalytic activity/Vol]27 U/LNormal7-45 [facility] Medical CenterComment on above:Result Comment: Patients treated with Sulfasalazine may generate falsely decreased results for ALT.Performed By: #### 71955-9 #### MIK FREITAS ([id number]) [facility] ([facility]) [address] [facility], [place] [address]Hrcnz gap [Moles/Vol]11 mmol/VXzjwov08-30WrikomrblyKettering Health Washington TownshipComment on above:Performed By: #### 78158-0 #### MIK FREITAS ([id number]) [facility] ([facility]) [address] [facility], [place] [address]WWY With P-5'-P [Catalytic activity/Vol]23 U/LNormal9-39 [facility] Geneva Medical CenterComment on above:Performed By: #### 82730-1 #### MIK FREITAS ([id number]) [facility] ([facility]) [address] [facility], [place] [address]Mnveiozpa [Mass/Vol]0.5 mg/dLNormal0.0-1.2UnKettering Health Washington TownshipComment on above:Performed By: #### 25044-0 #### MIK FREITAS (31796) [facility] ([facility]) [address] [facility], [place] [address]Gorhhir [Mass/Vol]9.4 mg/dLNormal8.6-10.3UnKettering Health Washington TownshipComment on above:Performed By: #### 31266-4 #### MIK FREITAS (59360) [facility] ([facility]) [address] [facility], [place] [address]Ecbapuog [Moles/Vol]101 mmol/OGwnlab14-445TqzoafyvjnKettering Health Washington TownshipComment on above:Performed By: #### 25730-2 #### MIK FREITAS (65738) [facility] ([facility]) [address] [facility] [place] [place] [address]BT1 [Moles/Vol]28 mmol/ZDjmsod77-86BzeuhrebvnUniversity Hospitals Geneva Medical CenterComment on above:Performed By: #### 52965-8 #### MIK FREITAS (94592) [facility] ([facility]) [address] [facility] [place] [place] [address]Tqkfnsabfa [Mass/Vol]0.75 mg/dLNormal0.50-1.05UnKettering Health Washington TownshipComment on above:Performed By: #### 84831-0 #### MIK FREITAS (86191) [facility] ([facility]) [address] [facility] [place] [address]FLV/1.73 sq M.predicted MDRD (S/P/Bld) [Vol rate/Area] mL/min/{1.73_m2}Normal>60UnKettering Health Washington TownshipComment on above:Result Comment: Calculations of estimated GFR are performed using the 2020 CKD-EPI Study Refit equation without the race variable for the IDMS-Traceable creatinine methods. https://jasn.asnjournals.org/content//ASN.4208394916Tbaaxcrnb By: #### 08903-6 #### MIK FREITAS (75897) [facility] ([facility]) [address] [facility] [place], [place] [address]Tsfsiat [Mass/Vol]108 mg/cLUemf11-94ShnlewonxpKettering Health Washington TownshipComment on above:Performed By: #### 81941-7 #### MIK FREITAS (80910) [facility] ([facility]) [address] [facility] [place], [place] [address]Oyhutmmef [Moles/Vol]3.8 mmol/LNormal3.5-5.3[facility] Hospit[facility] Geneva Medical CenterComment on above:Performed By: #### 47193-7 #### MIK FREITAS (31961) [facility] ([facility]) [address] [facility] [place] [address]Zpvpnhz [Mass/Vol]7.8 g/dLNormal6.4-8.2UnKettering Health Washington TownshipComment on above:Performed By: #### 93032-0 #### MIK FREITAS (39404) [facility] ([facility]) [address], [place] [address]Rxbbhd [Moles/Vol]136 mmol/PCungte530-163SlmdzgjmkeKettering Health Washington TownshipComment on above:Performed By: #### 22022-4 #### MIK FREITAS (26567) [facility] ([facility]) [address] [place], [place] [address]Iwqw nitrogen [Mass/Vol]13 mg/dLNormal6-23UnKettering Health Washington TownshipComment on above:Performed By: #### 43053-9 #### MIK FREITAS (62904) [facility] ([facility]) [address] [place], [place] [address]ZER 12-LEADon 71-37-8538SMV 12-LEADVentricular Rate 73 Atrial Rate 73 P-R Interval 168 QRS Duration 70 Q-T Interval 392 QTC Calculation(Bazett) 431 P [place] 32 R [place] 43 T [place] 24 QRS Count 12 Q Onset 225 P Onset 141 P Offset 194 T Offset 421 QTC Fredericia 418 Diagnosis Normal sinus rhythm Septal infarct , age undetermined Abnormal ECG No previous ECGs available Confirmed by Josie Anthony ([id number]) on 08/29/2023 9:59:19 PMNormalSummit Oaks HospitalNo Panel Informationon 65-75-7939Pmjbqeavo Study observation (narrative)[facility] Work Phone: PT Coag (PPP) [Time]on 21-49-3058VUP Coag (PPP) [Relative time]1.0 {INR}0.9 - 1.1UnLouis Stokes [facility] VA Medical CenterInterpretation and review of laboratory resultsNormalUniversJD McCarty Center for Children – NormanINR Coag (PPP) [Relative time]1.4Ecxvyc4.9-1.1 [facility] Geneva Medical CenterComment on above:Performed By: #### 5902-2 #### MIK FREITAS (51011) [facility] ([facility]) [address], [place] [address]Iyjslbt-DSFjs 90-02-6462XQ Coag ([facility]) [Time]11.1 Memorial HospitalMM TOMOSYNTHESIS SCREENING BIon 00-81-8290QbnSt. Mary'S Medical Center [address] [place] [address] Mammography Report Signed Patient: PRAVEENA DACOSTA MR#: [id number] : 1965 Acct:[id number] Age/Sex: 58 / F ADM Date: 06/27/23 Loc: MAMMO Attending Dr: Jennifer Jennings Ordering Physician: Jennifer Jennings Results: Date of Service: 06/27/23 Follow Up: Procedure(s): MM tomosynthesis screening BI Accession Number(s): [id number] cc: Jennifer Jennings; Rakesh Vernon M.D. Patient Name: PRAVEENA DACOSTA MR#: [id number] : 1965 Exam Date: 06/27/2023 Ordering Doctor: [...] breast cancer at age 50. LOCATION: [facility] BREAST COMPOSITION: Heterogeneously dense,which may obscure small masses. FINDINGS: DIAGNOSTIC CATEGORY 2--BENIGN FINDING. NO CHANGE FROM COMPARISON. Scattered benign-appearing calcifications are present. Scattered benign-appearing nodules are present. RIGHT BREAST: No significant suspicious finding. LEFT BREAST: No significant suspicious finding. RECOMMENDATIONS: ROUTINE MAMMOGRAM AND CLINICAL EVALUATION IN 12 MONTHS. PLEASE NOTE: A NORMAL MAMMOGRAM DOES NOT EXCLUDE THE POSSIBILITY OF BREAST CANCER. A CLINICALLY SUSPICIOUS PALPABLE LUMP SHOULD BE BIOPSIED. Dictated by: Vanessa Montenegro MD on 06/29/2023 at 08:11 Approved by: Vanessa Montenegro MD on 06/29/2023 at 08:13 Dictated By: Vanessa Montenegro M.D. Signed By: 06/29/23813 DD/ 2 TD/TT: Advertising Sales Consultant:TBHRadiology, Radiologist, - 06/29/2023 [place] [address] Mammography Report Signed Patient: PRAVEENA DACOSTA MR#: [id number] : 1965 Acct:[id number] Age/Sex: 58 / F ADM Date: 06/27/23 Loc: MAMMO Attending Dr: Jennifer Jennings Ordering Physician: Jennifer Jennings Results: Date of Service: 06/27/23 Follow Up: Procedure(s): MM tomosynthesis screening BI Accession Number(s): [id number] cc: Jennifer Jennings; Rakesh Vernon M.D. Patient Name: PRAVEENA DACOSTA MR#: [id number] : 1965 Exam Date: 06/27/2023 Ordering Doctor: [...] breast cancer at age 50. LOCATION: [facility] BREAST COMPOSITION: Heterogeneously dense,which may obscure small masses. FINDINGS: DIAGNOSTIC CATEGORY 2--BENIGN FINDING. NO CHANGE FROM COMPARISON. Scattered benign-appearing calcifications are present. Scattered benign-appearing nodules are present. RIGHT BREAST: No significant suspicious finding. LEFT BREAST: No significant suspicious finding. RECOMMENDATIONS: ROUTINE MAMMOGRAM AND CLINICAL EVALUATION IN 12 MONTHS. PLEASE NOTE: A NORMAL MAMMOGRAM DOES NOT EXCLUDE THE POSSIBILITY OF BREAST CANCER. A CLINICALLY SUSPICIOUS PALPABLE LUMP SHOULD BE BIOPSIED. Dictated by: Vanessa Montenegro MD on 06/29/2023 at 08:11 Approved by: Vanessa Montenegro MD on 06/29/2023 at 08:13 Dictated By: Vanessa Montenegro M.D. Signed By: 06/29/23813 DD/ 2 TD/TT: Advertising Sales Consultant: AFR[facility] HealthcareRadiology Study observation (narrative)AFRICA HealthcareMM TOMOSYNTHESIS SCREENING BIOrdered By: Radiologist Radiology on 44-29-7305UX[facility] Work Phone: XR DEXA AXIAL SKELETONon 23-22-7378[place]ws[place] [id number] XRay Report Signed Patient: PRAVEENA DACOSTA MR#: [id number] : 1965 Acct:[id number] Age/Sex: 58 / F ADM Date: 06/27/23 Loc: MAMMO Attending Dr: Jennifer Jennings Ordering Physician: Jennifer Jennings Date of Service: 06/27/23 Procedure(s): XR DEXA axial skeleton Accession Number(s): [id number] cc: Jennifer Jennings; Rakesh Vernon M.D. [address] [address] Patient Name: PRAVEENA DACOSTA MRN: [id number] date: 1965 Sex: F [facility] Accession/Order Number: [id number] Exam Date: 06/27/2023 14:15 Report Date: 06/27/2023 15:49 At the request of: JENNIFER JENNINGS Procedure: XR DEXA axial skeleton EXAMINATION: XR [...] Organization Classification: Osteopenia - Moderate Fracture Risk Electronically authenticated by: VIKA COLLAZO Date: 06/27/2023 15:49 Dictated By: Vika Collazo M.D. Signed By: 06/27/231551 DD/ 48 TD/TT: Advertising Sales Consultant:TAMARadiologjuwan, Radiologist, - 06/27/2023 [place] [address] XRay Report Signed Patient: PRAVEENA DACOSTA MR#: [id number] : 1965 Acct:[id number] Age/Sex: 58 / F ADM Date: 06/27/23 Loc: MAMMO Attending Dr: Jennifer Jennings Ordering Physician: Jennifer Jennings Date of Service: 06/27/23 Procedure(s): XR DEXA axial skeleton Accession Number(s): [id number] cc: Jennifer Jennings; Rakesh Vernon M.D. [address] [place] [address] Patient Name: PRAVEENA DACOSTA MRN: [id number] date: 1965 Sex: F Assigned Patient Location: [facility] Current Patient Location: [facility] Accession/Order Number: [id number] Exam Date: 06/27/2023 14:15 Report Date: 06/27/2023 15:49 At the request of: JENNIFER JENNINGS Procedure: XR DEXA axial skeleton EXAMINATION: XR [...] Organization Classification: Osteopenia - Moderate Fracture Risk Electronically authenticated by: VIKA COLLAZO Date: 06/27/2023 15:49 Dictated By: Vika Collazo M.D. Signed By: 06/27/231551 DD/ 48 TD/TT: Advertising Sales Consultant: AFR[facility] HealthcareRadiology Study observation (narrative)[facility] HospitalXR DEXA AXIAL SKELETONOrdered By: Radiologist Radiology on 51-94-5659ZVQM Reel[employer] Work Phone: cBC AUTO DIFFon 99-45-2720EBOW #0.0 103/ulNormal 0.0-0.1The [facility] HospitalComment on above:Performed By: #### CBC #### [facility] [address] [place] [address] Dr. Enrique ParkinsonBasophils/100 WBC (Bld)0.6 %Normal0.2-2.0[facility] Comment on above:Performed By: #### CBC #### [facility] [address] [place] [address] Dr. Enrique Shafer #0.1 103/ulNormal0.0-0.7The [facility] Memorial HospitalComment on above: Performed By: #### CBC #### [facility] [address] [place] [address] Dr. Enrique Chaseosinophils/100 WBC (Bld)0.9 %Normal0.9-7.0[facility] Comment on above:Performed By: #### CBC #### [facility] [address] [place] [address] Dr. Enrique Chaserythrocyte distribution width (RBC) [Ratio]12.9 %Uwzpgc96.0-15.0 [facility] HospitalComment on above:Performed By: #### CBC #### [facility] [address] [place] [address] Dr. Enrique ParkinsonHematocrit (Bld) [Volume fraction]41.5 %Wvtskn41.0-48.0The [facility] HospitalComment on above:Performed By: #### CBC #### [facility] [address] [place] [address] Dr. Enrique ParkinsonHemoglobin (Bld) [Mass/Vol]14.3 g/hEOumlin42.0-16.0The [facility] HospitalComment on above:Performed By: #### CBC #### [facility] [address] [place] [address] Dr. Enrique Tobar #0.02 10e3/ulNormal0.00-0.03The [facility] HospitalComment on above:Performed By: #### CBC #### [facility] [address] [place] [address] Dr. Enrique Tobar %0.3 %Normal0.0-0.5The [facility] HospitalComment on above: Performed By: #### CBC #### [facility] [address] [place] [address] Dr. Enrique Archuleta #1.8 103/ulNormal1.2-3.8The [facility] HospitalComment on above:Performed By: #### CBC #### [facility] [address] [place] [address] Dr. Enrique Grayhocytes/100 WBC (Bld)25.9 %Dhrrmj44.5-60.0The [facility] HospitalComment on above:Performed By: #### CBC #### [facility] [address] [place] [address] Dr. Enrique ElizabethLUTHERAN [facility] DIFF REQNONormalThe [facility] HospitalComment on above: Performed By: #### CBC #### [facility] [address] [place] [address] Dr. Enrique Coppola (RBC) [Entitic mass]30.2 agNpclyv88.7-34.0The [facility] HospitalComment on above:Performed By: #### CBC #### [facility] [address] [place] [address] Dr. Enrique Darnell (RBC) [Mass/Vol]34.5 g/xXWuzpxm44.9-35.2The [facility] HospitalComment on above:Performed By: #### CBC #### [facility] [address] [place] [address] Dr. Enrique Darnell (RBC) [Entitic vol]87.6 oUVfssgj02.0-99.0The [facility] HospitalComment on above:Performed By: #### CBC #### [facility] [address] [place] [address] Dr. Enrique Dolan #0.4 103/ulNormal0.3-0.8The [facility] HospitalComment on above:Performed By: #### CBC #### [facility] [address] [place] [address] Dr. Enrique Goodsonocytes/100 WBC (Bld)5.1 %Normal1.7-12.0The [facility] Comment on above:Performed By: #### CBC #### [facility] [address] [place] [address] Dr. Enrique James #4.6 103/ulNormal1.4-6.5The [facility] HospitalComment on above:Performed By: #### CBC #### [facility] [address] [place] [address] Dr. Enrique Talaveraophils/100 WBC (Bld)67.2 %Brfouh52.0-75.0The [facility] HospitalComment on above:Performed By: #### CBC #### [facility] [address] [place] [address] Dr. Enrique Ramirez mean volume (Bld) [Entitic vol]9.2 fLCritically low 9.5-13.5The [facility] HospitalComment on above:Performed By: #### CBC #### [facility] [address] [place] [address] Dr. Enrique ParkinsonPLT246 103/vaIdwpfk616-506Rfs [facility] HospitalComment on above: Performed By: #### CBC #### [facility] [address] [place] [address] Dr. Enrique MasC4.74 106/ulNormal4.20-5.40The [facility] HospitalComment on above:Performed By: #### CBC #### [facility] [address] [place] [address] Dr. Enrique ParkinsonWBC6.9 103/ulNormal4.0-11.0The [facility] HospitalComment on above: Performed By: #### CBC #### [facility] [address] [place] [address] Dr. Enrique Currie T3on 52-57-5876ZAKN T32.43 pg/mlLNormal2.18-3.98The [facility] on above:Performed By: #### T4, TSH, LIPID, CMP, FT3 #### [facility] [address] [place] [address] [address] Enrique ParkinsonGLYCOHEMOGLOBIN A1Con 91-00-5981GEO RECOMMENDATIONSEE BELOWSelect Medical Ohiohealth Rehabilitation Hospital - DublinComhenry ford cottage hospital on above:Result Comment: ADA RECOMMENDED LIMIT 4.0 - 6.0 ADA THERAPEUTIC TARGET < 7.0 ACTION SUGGESTED > 7.0Performed By: #### A1C #### [facility] [address] [address] [address] Enrique ParkinsonGlucose [Mass/Vol]114 mg/dLNoOhioHealth Southeastern Medical Center on above:Performed By: #### A1C #### [facility] [address] [address] [address] Enrique ParkinsonHbA1c (Bld) [Mass fraction]5.6 %Normal4.5-6.2The [facility] on above:Performed By: #### A1C #### [facility] [address] [address] [address] Enrique ParkinsonLIPID PROFILEon 99-67-0619DCQX-HDL RATIO NORMSEE Miami Valley HospitalComhenry ford cottage hospital on above:Result Comment: 3.3 - 4.4 LOW RISK 4.4 - 7.1 AVERAGE RISK 7.1 - 11.0 MODERATE RISK >11.0 HIGH RISKPerformed By: #### T4, TSH, LIPID, CMP, FT3 #### [facility] [address] [address] [address] Enrique ParkinsonCholesterol [Mass/Vol]241 mg/dLCritically high<=200The [facility] on above:Performed By: #### T4, TSH, LIPID, CMP, FT3 #### [facility] [address] [address] [address] Enrique ParkinsonCholesterol in HDL [Mass/Vol]45 mg/kMKaovzv33-95Igj Capay HospitalComment on above:Performed By: #### T4, TSH, LIPID, CMP, FT3 #### [facility] [address] [address] [address] Enrique Ramiresesterol in LDL [Mass/Vol]131.2 mg/dLRegency Hospital Cleveland East on above:Performed By: #### T4, TSH, LIPID, CMP, FT3 #### [facility] [address] [place] [address] Dr. Enrqiue Garcia.total/Cholesterol in HDL [Mass ratio]5.4 {ratio} NormalThe [facility] Memorial HospitalComhenry ford cottage hospital on above:Performed By: #### T4, TSH, LIPID, CMP, FT3 #### [facility] [address] [place] [address] Dr. Enrique Krueger NORMAL> or = 60 mg/dl - LOW CARDIOVASCULAR RISK <40 mg/dl - HIGH CARDIOVASCULAR RISKHolzer HospitalComhenry ford cottage hospital on above:Performed By: #### T4, TSH, LIPID, CMP, FT3 #### [facility] [address] [place] [address] Dr. Enrique Cespedes CALC NORMALSEE BELOWHolzer HospitalComhenry ford cottage hospital on above:Result Comment: <100 mg/dl OPTIMAL 100 - 129 mg/dl NEAR OR ABOVE OPTIMAL 130 - 159 mg/dl BORDERLINE HIGH 160 - 189 mg/dl HIGH >190 mg/dl VERY HIGH Performed By: #### T4, TSH, LIPID, CMP, FT3 #### [facility] [address] [place] [address] Dr. Enrique ParkinsonTriglyceride [Mass/Vol]324 mg/dLCritically high<=150[facility] on above:Performed By: #### T4, TSH, LIPID, CMP, FT3 #### [facility] [address] [place] [address] Dr. Enrique ArizaLDL CALC64.8 mg/dLHolzer HospitalComment on above: Performed By: #### T4, TSH, LIPID, CMP, FT3 #### [facility] [address] [place] [address] Dr. Enrique Hogan 14(COMP METB)on 30-63-7855Wxgjndc [Mass/Vol]4.1 g/dLNormal 3.4-5.0The UC Healthment on above:Performed By: #### T4, TSH, LIPID, CMP, FT3 #### [facility] [address] [place] [address] Dr. Enrique ParkinsonAlbumin/Globulin [Mass ratio]1.1 {ratio}NormalThe [facility] HospitalComment on above:Performed By: #### T4, TSH, LIPID, CMP, FT3 #### [facility] [address] [place] [address] Dr. Enrique Ash [Catalytic activity/Vol]83 U/JAzjtmw77-146Ywa UC Healthment on above:Performed By: #### T4, TSH, LIPID, CMP, FT3 #### [facility] [address] [place] [address] Dr. Enrique Angela [Catalytic activity/Vol]28 U/QSqptjq67-88Ctm [facility] HospitalComment on above:Performed By: #### T4, TSH, LIPID, CMP, FT3 #### [facility] [address] [place] [address] Dr. Enrique Lopes gap [Moles/Vol]12.3 mmol/LNormalThe [facility] Comment on above:Performed By: #### T4, TSH, LIPID, CMP, FT3 #### [facility] [address] [place] [address] Dr. Enrique Coon [Catalytic activity/Vol]20 U/NMvszzy36-09Kay [facility] on above:Performed By: #### T4, TSH, LIPID, CMP, FT3 #### [facility] [address] [place] [address] Dr. Enrique ParkinsonBilirubin [Mass/Vol]0.4 mg/dLNormal0.2-1.0The [facility] Comment on above:Performed By: #### T4, TSH, LIPID, CMP, FT3 #### [facility] [address] [place] [address] Dr. Yilan ChangCalcium [Mass/Vol]9.2 mg/dLNormal8.5-10.1The [facility] Comment on above:Performed By: #### T4, TSH, LIPID, CMP, FT3 #### [facility] [address] [address] [address] Enrique ParkinsonChloride [Moles/Vol]101 mmol/SLoefts19-464Zsi [facility] Comment on above:Performed By: #### T4, TSH, LIPID, CMP, FT3 #### [facility] [address] [address] [address] Enrique ParkinsonCO2 [Moles/Vol]29.4 mmol/WYvelrb44.0-32.0The [facility] Comment on above:Performed By: #### T4, TSH, LIPID, CMP, FT3 #### [facility] [address] [address] [address] Enrique ParkinsonCreatinine [Mass/Vol]0.80 mg/dLNormal0.55-1.02The [facility] HospitalComment on above:Performed By: #### T4, TSH, LIPID, CMP, FT3 #### [facility] [address] [address] [address] Enrique ChaseGFR-AF CHILEAN>60Normal>=60The [facility] HospitalComment on above:Performed By: #### T4, TSH, LIPID, CMP, FT3 #### [facility] [address] [address] [address] Enrique ChaseGFR-NON AF CHILEAN>60Normal>=60The [facility] HospitalComment on above:Performed By: #### T4, TSH, LIPID, CMP, FT3 #### [facility] [address] [address] [address] Enrique ParkinsonGlobulin (S) [Mass/Vol]3.8 g/dLNormalThe [facility] HospitalComment on above:Performed By: #### T4, TSH, LIPID, CMP, FT3 #### [facility] [address] [address] [address] Enrique ParkinsonGlucose [Mass/Vol]111 mg/dLCritically kkcs96-002Qyl [facility] HospitalComment on above:Performed By: #### T4, TSH, LIPID, CMP, FT3 #### [facility] [address] [place] [address] Dr. Enrique ParkinsonPotassium [Moles/Vol]3.7 mmol/LNormal3.5-5.1The [facility] Comment on above:Performed By: #### T4, TSH, LIPID, CMP, FT3 #### [facility] [address] [place] [address] Dr. Enrique ParkinsonProtein [Mass/Vol]7.9 g/dLNormal6.4-8.2The [facility] Comment on above:Performed By: #### T4, TSH, LIPID, CMP, FT3 #### [facility] [address] [place] [address] Dr. Enrique ParkinsonSodium [Moles/Vol]139 mmol/ONkkohc711-733Nfv [facility] Comment on above:Performed By: #### T4, TSH, LIPID, CMP, FT3 #### [facility] [address] [place] [address] Dr. Enrique ParkinsonUrea nitrogen [Mass/Vol]15.0 mg/dLNormal7.0-18.0The [facility] HospitalComment on above:Performed By: #### T4, TSH, LIPID, CMP, FT3 #### [facility] [address] [place] [address] Dr. Enrique ParkinsonUrea nitrogen/Creatinine [Mass ratio]18.8 mg/mgNormalThe [facility] HospitalComment on above:Performed By: #### T4, TSH, LIPID, CMP, FT3 #### [facility] [address] [place] [address] Dr. Enrique Zamora 31-81-9522Q4 [Mass/Vol]10.30 ug/dLNormal4.80-13.90The [facility] HospitalComment on above:Performed By: #### T4, TSH, LIPID, CMP, FT3 #### [facility] [address] [place] [address] Dr. Enrique Aleman 54-82-8678UBF2.847 uIU/mLNormal0.358-3.740St. Mary'S Medical CenterComment on above:Performed By: #### T4, TSH, LIPID, CMP, FT3 #### [facility] [address] [place] [address] Dr. Enrique ParkinsonVITAMIN D 25 OHon 48-46-8164FFS D 25-OH35.8 ng/mLNormalSt. Mary'S Medical CenterComment on above:Performed By: #### VITAD #### [facility] [address] [address] [address] Enrique Navarro D RANGESSEE BELOWHolzer HospitalComment on above: Result Comment: <20 ng/mL Vit D deficient 20 - <30 ng/mL Vit D insufficient 30 - 100 ng/mL Vit D sufficient >100 ng/mL Potential ToxicityPerformed By: #### VITAD #### [facility] [address] [place] [address] Dr. Enrique ParkinsonCovid-19 PCR ([facility])on 69-06-7450DQWQ-CoV-2 (COVID-19) RNA RENATO+probe Ql (Unsp spec)Not detectedNormalNOT DETECTEDSt. Mary'S Medical Center Comment on above:Result Comment: This test is not yet approved or cleared by the [place] FDA. When there are no FDA-approved or cleared tests available, and other criteria are met, FDA can make tests available under an emergency access mechanism called an Emergency Use Authorization (EUA). The EUA for this test is supported by the [place] of Health and Human Service's (HHS's) declaration [...] consistent with SARS-CoV-2.Performed By: #### CVDTBH #### [facility] [address] [place] [address] Dr. Enrique AlbertoMATIC COVID-19 ANTIGENon 57-98-9246NVY StatementSEE BELOW NormalBarney Children's Medical Center on above:Result Comment: This test has not [...] is revoked sooner.Performed By: #### CVDAGS #### [facility] [address] [place] [address] Dr. Enrique Gomez-CoV-2 (COVID-19) RNA RENATO+probe Ql (Unsp spec)NegativeNormal NEGATIVEThe [facility] HospitalComment on above:Performed By: #### CVDAGS #### [facility] [address] [place] [address] Dr. Enrique ParkinsonPAP ACOG PANEL 2: 30 to 65on 11-19-2021..NormalThe [facility] HospitalComment on above:Result Comment: Performed at: WBPerformed By: #### CVDAGS #### [facility] [address] [place] [address] Dr. Enrique Salazar Gdln ACOG Esklzmu53-54VfazxdZfpLakeHealth TriPoint Medical CenterComment on above:Performed By: #### CVDAGS #### [facility] [address] [place] [address] Dr. Enrique ParkinsonDIAGNOSIS:CommentNormMercy Health Willard HospitalComment on above: Result Comment: NEGATIVE FOR INTRAEPITHELIAL LESION OR MALIGNANCY. Performed at: WBPerformed By: #### CVDAGS #### [facility] [address] [place] [address] Dr. Enrique ParkinsonHPV AptimaNegativeNormalNegativeThe [facility] on above:Result Comment: This nucleic acid amplification test detects fourteen high-risk HPV types (16,18,31,33,35,39,45,51,52,56,58,59,66,68) without differentiation. Performed at: =GPerformed By: #### CVDAGS #### [facility] [address] [place] [address] Dr. Enrique ParkinsonMethodology:CommentRegency Hospital Cleveland East on above: Result Comment: This liquid based ThinPrep(R) pap test was screened with the use of an image guided system. Performed at: WBPerformed By: #### CVDAGS [address] [address] [address] Enrique ParkinsonNote:CommentNoOhioHealth Southeastern Medical Center on above:Result Comment: The Pap smear is a screening test designed to aid in the detection of premalignant and malignant conditions of the uterine cervix. It is not a diagnostic procedure and should not be used as the sole means of detecting cervical cancer. Both false-positive and false-negative reports do occur. . Performed at: WBPerformed By: #### CVDAGS #### [facility] [address] [place] [address] Dr. Enrique ParkinsonPerformed by:CommentNoOhioHealth Southeastern Medical Center on above: Result Comment: Katarina Robbins, Fire Equipment Inspector Helper (ASCP) Performed at: WBPerformed By: #### CVDAGS #### [facility] [address] [place] [address] Dr. Enrique ParkinsonSpecimen adequacy:CommentRegency Hospital Cleveland East on above:Result Comment: Satisfactory for evaluation. Endocervical and/or squamous metaplastic cells (endocervical component) are present. Performed at: WBPerformed By: #### CVDAGS #### [facility] [address] [place] [address] Dr. Enrique Parkinson Vital Signs Date TimeVital SignValuePerforming JrsuwyudbAxmkqmke05-29-6234 10:21-0400Body vnzclo783.64 cmRakesh Vernon MD Work Phone: [phone] [place], [place] 9750308-06-2025 10:21-0400 Body mass index (BMI) [Ratio]29.2 kg/j9TrbkqpcRakesh Vernon MD Work Phone: [phone]08-06-2025 10:21-0400 Body fndejz05.21 kgRakesh Vernon MD Work Phone: [phone]08-06-2025 10:21-0400 Diastolic blood ryafpawc44 mm[Hg]Rakesh Vernon MD Work Phone: [phone] [address]08-06-2025 10:21-0400 Heart rate78 /minDbebe Vernon MD Work Phone: [phone] [address]08-06-2025 10:21-0400 SaO2% (BldA) [Mass fraction]99 %Rakesh Vernon MD Work Phone: [phone] [place], [place] 9750308-06-2025 10:21-0400 Systolic blood ykfzmqjk416 mm[Hg]Rakesh Vernon MD Work Phone: [phone]03-18-2025 11:30-0400 Diastolic blood oaxojkor15 mm[Hg]Jono Gonzalez III, MD Work Phone: [facility]03-18-2025 11:30-0400Heart rate61 /min Jono Gonzalez III, MD Work Phone: [facility]03-18-2025 11:30-2766EuJ4% (BldA) [Mass fraction]100 %Jono Gonzalez III, MD Work Phone: [facility]03-18-2025 11:30-0400Systolic blood cuzfujod978 mm[Hg]Jono Gonzalez III, MD Work Phone: [facility]03-18-2025 11:16-0400Respiratory rate 16 /minJosen Gonzalez III, MD Work Phone: [facility]03-18-2025 09:53-0400Body temperature 97.3 [degF]Jono Gonzalez III, MD Work Phone: [facility]03-04-2025 06:52-0500Body jqyxvr577.1 cmPacc 1 Work Phone: [facility]03-04-2025 06:52-0500Body mass index (BMI) [Ratio]28.25 kg/m2Pacc 1 Work Phone: [facility]03-04-2025 06:52-0500Body temperature 98.1 [degF]Pacc 1 Work Phone: [facility]03-04-2025 06:52-0500Body qjmexf66 kg Pacc 1 Work Phone: [facility]03-04-2025 06:52-0500Diastolic blood codigupx66 mm[Hg]Pacc 1 Work Phone: [facility]03-04-2025 06:52-0500Heart rate55 /min Pacc 1 Work Phone: [facility]03-04-2025 06:52-0500Respiratory rate 14 /minPacc 1 Work Phone: [facility]03-04-2025 06:52-7007RiI0% (BldA) [Mass fraction]100 %Pacc 1 Work Phone: [facility]03-04-2025 06:52-0500Systolic blood rnrnbdyz609 mm[Hg]Pacc 1 Work Phone: [facility]02-28-2025 09:54-0500Body fehulr602.6 cmJosen Gonzalez III, MD Work Phone: [facility] WestComment on above:ilrptf68-05-6990 09:54-0500Body mass index (BMI) [Ratio]27.79 kg/m2Jono Gonzalez III, MD Work Phone: [facility]02-28-2025 09:54-0500Body cyxwke74.1 kgJono Gonzalez III, MD Work Phone: [facility]02-28-2025 09:54-0500Diastolic blood dlbtscau44 mm[Hg]Jono Gonzalez III, MD Work Phone: [facility]02-28-2025 09:54-0500Heart rate75 /min Jono Gonzalez III, MD Work Phone: [facility]02-28-2025 09:54-4996XgM2% (BldA) [Mass fraction]99 %Jono Gonzalez III, MD Work Phone: [facility]02-28-2025 09:54-0500Systolic blood stzadejm412 mm[Hg]Jono Gonzalez III, MD Work Phone: [facility]01-28-2025 13:18-0500Body pvfzpu35.2 kgSujosef Pelayo MD Work Phone: [facility]01-28-2025 13:18-0500Diastolic blood qzhbudrg53 mm[Hg]Elgin Pelayo MD Work Phone: [facility]01-28-2025 13:18-0500Heart rate83 /min Elgin Pelayo MD Work Phone: [facility]01-28-2025 13:18-7825CzZ1% (BldA) [Mass fraction]100 %Elgin Pelayo MD Work Phone: [facility]01-28-2025 13:18-0500Systolic blood dquhxpdp396 mm[Hg]Elgin Pelayo MD Work Phone: [facility]11-25-2024 14:23-0500Body dyxahq821.6 cmTlai Briscoe MD Work Phone: noHeartland Behavioral Health ServicesDxwibrhyzo89-69-8768 14:23-0500Body mass index (BMI) [Ratio]25.82 kg/m2Breann Briscoe MD Work Phone: noHeartland Behavioral Health ServicesTtnqhjoyhk29-15-7013 14:23-0500Body aegbhm71.58 kgToalphonse Briscoe MD Work Phone: NOHeartland Behavioral Health ServicesUmhllxcluw14-48-6604 09:35-0400Diastolic blood yxaezdbc80 mm[Hg]Dave Penny DO Work Phone: NOSL Ukuquvijdd59-63-4303 09:35-0400Heart rate78 /min Dave Penny DO Work Phone: NOHeartland Behavioral Health ServicesUlhivpehmi59-18-3396 09:35-5559CcL4% (BldA) [Mass fraction]99 %Dave Penny DO Work Phone: NOHeartland Behavioral Health ServicesZyheteqchw99-40-9276 09:35-0400Systolic blood ywdaqbwf894 mm[Hg]Dave Penny DO Work Phone: NOHeartland Behavioral Health ServicesGilprgbsgl11-36-3974 10:27-0500Diastolic blood khjmuvcr33 mm[Hg]Ar[place] Dennison DO Work Phone: [phone]01-23-2024 10:27-0500 Heart rate77 /minAruba Dennison DO Work Phone: [phone]01-23-2024 10:27-0500 SaO2% (BldA) [Mass fraction]98 %Aruba Dennison DO Work Phone: [facility]01-23-2024 10:27-0500 Systolic blood hdolyvko337 mm[Hg][place]uba Dennison DO Work Phone: [phone]01-23-2024 08:01-0500 Body abzgcr039.6 cmAruba Dennison DO Work Phone: [phone]01-23-2024 08:01-0500 Body mass index (BMI) [Ratio]29.05 kg/g4Jiezs Dennison DO Work Phone: [phone]01-23-2024 08:01-0500 Body ayyvaixrwqs41.1 [degF][place] Dennison DO Work Phone: [phone] [place], [place] [address]01-23-2024 08:01-0500 Body wftupc06.65 kgAruba Dennison DO Work Phone: [facility]01-23-2024 08:01-0500 Respiratory rate16 /minAruba Dennison DO Work Phone: [facility]06-01-2023 14:45-0400 Body jexxyj308.64 cmLkendy Chacko Other [employer] Other 06-01-2023 14:45-0400Body mass index (BMI) [Ratio] 30.18 kg/d8QnhuwcMirta Chacko Other [employer] Other 06-01-2023 14:45-0400Body dolctftvcjt56.8 [degF]Mirta Chacko Other [employer] Other 06-01-2023 14:45-0400Body uqraql20.82 kgMirta Ginna Other [employer] Other 06-01-2023 14:45-0400Respiratory rate18 /Rolandaman Chacko Other [employer] Other 06-01-2023 14:45-2558VsQ4% (BldA) [Mass fraction]98 % Mirta Ginna Other [employer] Other Encounters Encounter DateEncounter TypeCare ProviderFacilityStart: 02-18-2025 End: 54-11-8252rqkynnmxpwYmqhxoh M Hoy MD Work Phone: [facility] Work Phone: Start: 02-18-2025 End: 00-18-5148Ywgljhn encounter procedureNeelima Rangel APRN-[facility] Work Phone: Start: 10-16-2024 End: 91-16-2715fxcgjoxlysGJUQ A COSTIN IIIFacility:[facility] Start: 10-16-2024 End: 24-58-1461Ikracgq encounter procedureJono Gonzalez MD Work Phone: General SurgeryComment on above:Post-operative state (Primary Dx)Start: 10-02-2024 End: 86-53-6347Fjsoqjyuv encounterLoree Mona CARDENAS Work Phone: General SurgeryStart: 37-33-7232qlyvvoabafDMVN A COSTIN IIIFacility:[facility]woodtart: 09-30-2024 End: 25-52-9407Dkwpuiemjs hospital visit by physicianJono Gonzalez MD Work Phone: Ambulatory SurgeryComment on above:Calculus of gallbladder without cholecystitis without obstruction [K80.20]Start: 09-16-2024 End: 45-90-6856B-mail encounter from John Moreland APRN.CNP Work Phone: Pre AnesthesiaStart: 09-16-2024 End: 75-05-0333Biytgggwp to establishmentRed De Leon 1 Work Phone: Pre AnesthesiaStart: 09-16-2024 End: 05-00-1289ceuvycdguqONZD A COSTIN IIIFacility:[facility] Start: 09-16-2024 End: 51-01-1368Wyykckdwfp consultationPagabriela De Leon 1 Work Phone: Pre AnesthesiaComment on above:Pre-op examination (Primary Dx); Uncomplicated asthma, unspecified asthma severity, unspecified whether persistent; Pure hypercholesterolemia, unspecified; Hypertension, unspecified type; Sleep apnea, unspecified type; Biliary calculus of other site without obstruction; Hypothyroidism, unspecified typeStart: 02-87-0813Dxpvkcxoq for other preprocedural examinationJONO FigueroaHolzer HospitalStart: 09-16-2024 End: 93-16-4267Fthgaybvquabb examination doneRed De Leon 1 Work Phone: [facility] Work Phone: Start: 09-15-2024 End: 83-21-5959Zazuvgrpw encounterJono Gonzalez MD Work Phone: General SurgeryComment on above:Schedule SurgeryStart: 09-12-2024 End: 80-79-8666Cgqxclh encounter procedureJono Gonzalez MD Work Phone: General SurgeryComment on above:Calculus of gallbladder without cholecystitis without obstruction (Primary Dx)Start: 09-12-2024 End: 06-00-3076ophjthkkmoMUCB A COSTIN IIIFacility:[facility] Start: 09-11-2024 End: 33-22-2823Ezorjfchi encounterLordavid Hsu RN Work Phone: General SurgeryStart: 90-89-1747wgztkwsscbYdhohbdg:GS BellevueStart: 08-14-2024 End: 37-79-5660Cdvdqkvvh encounterSjair Pelayo MD Work Phone: Pulmonary MedicineComment on above:Image requestStart: 08-12-2024 End: 68-61-1669xtmllkrlwpOYUEI R PANDITFacility:[facility] [place]woodtart: 08-12-2024 End: 34-19-3505Vviwmfb encounter procedureSjair Pelayo MD Work Phone: Pulmonary MedicineComment on above:Severe persistent asthma without complication (Primary Dx); Shortness of breathStart: 07-02-2024 End: 02-98-8308Opnukcnkq encounterNicole Penny DO Work Phone: noms [address] [facility] R[address]TEStart: 06-18-2024 End: 24-04-1025ywokwmcytzWvjixtu J DittyFacility:[facility] Hospitaltart: 06-09-2024 End: 21-77-4104Susscq outpatient new 45 minutesTodd Nic Briscoe MD Work Phone: noMS SWS ALLComment on above:Wheeze (Primary Dx); Chronic rhinitis; Recurrent sinus infectionsStart: 06-09-2024 End: 45-25-7086rhizaokbfqWRFZ E BHARATHBASEKNot AvailableStart: 06-09-2024 End: 74-38-1072Fwratj flowsheetToalphonse Briscoe MD Work Phone: noms SWS ALLStart: 06-09-2024 End: 40-19-0983Hqrbif flowsheetToalphonse Briscoe MD Work Phone: NOPS SWS ALLStart: 06-09-2024 End: 12-66-8152Aiyxpy OnlyToalphonse E Rachna MILES Work Phone: noms External Department UnsolicitedStart: 05-22-2024 End: 66-93-7731Dwibpg OnlyNot In System Ref ProvProMedica Physicians General SurgeryStart: 05-15-2024 End: 75-53-4910Sdxdmdsgk encounterRegmario HUMPRHEYAProMedica Physicians General SurgeryStart: 04-16-2024 End: 22-66-2383Tbpmjb flowsheetNicole Penny DO Work Phone: noms [address]TEStart: 04-16-2024 End: 25-28-9601Xarfyi flowsheetNicole Penny DO Work Phone: noMS [address] [facility] R[address]TEStart: 04-16-2024 End: 22-50-4825jvtsltsezfCJFPKA DANNERNot AvailableStart: 04-16-2024 End: 79-29-1682Zggewi outpatient visit 25 minutesNicole Penny DO Work Phone: noms [address] R[address]TEComment on above:Hypersomnia (Primary Dx); JANIS (obstructive sleep apnea); Snoring; Memory lossStart: 08-07-2023 End: 60-08-4007Ngouesoex department patient visitShen Dennison DO Work Phone: uh [facility] Emergency MedicineComment on above:Fall, initial encounter (Primary Dx); Closed head injury, initial encounterStart: 06-29-2023 End: 26-67-3069Pxfiflvwd Result EncounterAmy Dick CASTILLO Work Phone: noms External Department UnsolicitedStart: 06-29-2023 End: 47-54-8423Kvprvsrfb Result EncounterJennifer CASTILLO Work Phone: noms External Department UnsolicitedStart: 06-27-2023 End: 78-52-1056Htigcdkxz Result EncounterJennifer CASTILLO Work Phone: noms External Department UnsolicitedStart: 06-27-2023 End: 20-27-1924Skvcivyde Result EncounterAmy Dick CASTILLO Work Phone: noms External Department UnsolicitedStart: 12-14-2022 End: 52-20-6153qofcdhbthtEcqmok Bailey Other [facility] [employer] Other Start: 66-59-1394Fetjcr outpatient new 30 minutes [facility] ClydeStart: 71-03-1988Qturigdft for general adult medical examination without abnormal findingsDR [facility] Start: 08-08-2022 End: 86-27-7517mojbjychqaTD RAKESH HOYFacility:V2Qddmo: 08-08-2022 End: 12-50-4190Ouhphrref for general adult medical examination without abnormal findingsDR RAKESH YFacility:R5Qjifo: 02-27-2022 End: 66-26-3396eyevnikkvxNH RAKESH HOYFacility:G2Agibu: 01-04-2022 End: 02-31-9068mueqlzwfxyLB RAKESH HOYFacility:A2Xnecr: 11-14-2021 End: 70-24-1226dtpjaybtjpJO RAKESH HOYFacility:P9Usixa: 10-07-2021 End: 65-04-1416kjfedpszlcER RAKESH HOYFacility:H1 Procedures DateProcedureProcedure DetailPerforming ClinicianStart: 39-42-0007Ere routine ecg w/least 12 lds i&r onlyCcf ProviderStart: 09-30-2024 End: 03-54-1519Mjtd surg cholecystectomy w/cholangiographyJohn A Carlos MD Work Phone: Start: 47-60-1197Nddbqixg diphtheriaTlai Briscoe MD Work Phone: Start: 08-00-3076Ioijh of gammaglobulin iga igd igg igm eachBreann Briscoe MD Work Phone: Start: 68-27-7770Rxvvpznx blood count with white cell differential, automatedBreann Briscoe MD Work Phone: Start: 91-20-1419BYTDQWKGCPZY AB (23 SEROTYPE)Breann Briscoe MD Work Phone: Start: 22-02-5438FFJFWGIA LABSNot In System Ref Prov Start: 17-45-5988JM CERVICAL SPINE WO IV CONTRASTDOUGLAS HOYStart: 33-69-8605JU THORACIC SPINE WO IV CONTRASTDOUGLAS HOYStart: 73-76-8181AW HEAD WO IV CONTRAST RAKESH HOYStart: 92-92-8138UVU 12-LEADDOUGLAS HOYStart: 46-39-7452HKY W Auto Differential panel - BloodDOUGLAS HOYStart: 59-80-0356Twjqxxtfeizci metabolic 2000 panel - Serum or PlasmaDOUGLAS HOYStart: 80-18-2793LDREAAD-INRDOUGLAS HOY Start: 18-23-3029Xy cervical spine w/o contrast materialAngela C Sales DO Work Phone: Start: 45-74-8978Ty head/brain w/o contrast material Neelima C Sales DO Work Phone: Start: 96-47-1345Iah routine ecg w/least 12 lds trcg only w/o i&rAngela C Sales DO Work Phone: Start: 29-02-5345Xebiassptslcw metabolic panelAngela C Sales DO Work Phone: Start: 30-73-3064YM TOMOSYNTHESIS SCREENING Arya CASTILLO Work Phone: Start: 85-19-8498OuyheimydzpBadifi Penny DO Work Phone: Start: 14-37-2516LX DEXA AXIAL SKELETONAmy Dikc CASTILLO Work Phone: Plan of Treatment DateCare ActivityDetailAuthorStart: 62-90-4055Prkzd microalbumin profile DTaP,Tdap,Td Vaccine (2 - Td or Tdap)[facility] Hospitaltart: 01-16-1490Kfligcjo ScreeningDiabetes ScreeningGalion Hospitaltart: 06-02-2025 End: 98-28-6616Wqianql encounter efynousjv89/18/2025 11:00 AM EST Procedure Visit NOMSherly TOUSSAINT [address] [place], [id number] Jennifer Jennings PA [address] [place] [address] NOMS Jorge OBGYNStart: 03-16-2025 Influenza vaccinationAtrium Health Harrisburgtart: 11-10-2024 End: 42-10-3517Ictzwkl encounter gtdxybgew40/28/2025 2:00 PM EDT Office Visit Pulmonary Medicine [address] [facility] [address] [place], [place] [id number] Jazmyne Liu APRN.MAIL READER [address] [facility] [address] [facility] [address] Return in about 3 months (around 11/10/2024).Pulmonary MedicineComment on above:Return in about 3 months (around 11/10/2024).Start: 11-10-2024 End: 08-54-2070bfzwvttgorJqzkzkctn LabComment on above:Severe persistent asthma without complication [J45.50]Start: 10-16-2024 End: 98-23-9088Anomfja encounter mprooqaqq44/03/2025 8:30 AM EDT Office Visit General Surgery [address] [place] [id number] Jono Gonzalez III, MD [address], [place] [id number] [address] [place] [address] GRAMSGeneral SurgeryComment on above:POST OP LAP [place] W GRAMSStart: 09-30-2024 End: 16-78-4825Ckxzxzbrf to same day surgery qbunur5709/30/2024 10:30 AM EDT - 09/30/2024 11:35 AM EDT Surgery Ambulatory Surgery [address] [place] [address] Jono Gonzalez III, MD [address] [place] [address] LAPAROSCOPIC CHOLECYSTECTOMY WITH GRAMSAmbulatory SurgeryComment on above:LAPAROSCOPIC CHOLECYSTECTOMY WITH GRAMS Start: 09-30-2024 End: 43-71-2717Bgve surg cholecystectomy w/cholangiographyLAPAROSCOPIC CHOLECYSTECTOMY WITH GRAMS Calculus of gallbladder without cholecystitis without obstruction 09/30/2024 10:30 AM EDT[facility] L[facility]AINStart: 98-28-1968Qgnmnmqfdg hospital visit by bkuobyusu74/18/2025 10:30 AM EDT Hospital Encounter Ambulatory Surgery [address] [place] [address] Jono Gonzalez III, MD [address] [place] [address] Calculus of gallbladder without cholecystitis without obstruction [K80.20] Ambulatory SurgeryComment on above:Calculus of gallbladder without cholecystitis without obstruction [K80.20]Start: 09-12-2024 End: 11-62-4023Kdkyupr encounter /28/2025 12:00 PM EST Office Visit General Surgery [address] [place] [address] Jono Gonzalez III, MD [address] [place] [address] CholelithiasisGeneral SurgeryComment on above:CholelithiasisStart: 07-03-2024 End: 54-99-1411Cxjiwdu encounter /19/2024 2:20 PM EST Office Visit [facility] [address] [place] [address] Breann Briscoe MD [address] [place] [address] [facility] ALLStart: 56-46-6510Qokovqdqa for malignant neoplasm of breastMammogramNOMS HealthcareStart: 06-09-2024 End: 31-74-4462Pxxyblm encounter hhixhwwdp17/25/2024 2:40 PM EST Office Visit [facility] [address] [place] [address] Breann Briscoe MD [address] [facility] [address] [place] [address] ArrivedNOMS [facility] ALLComment on above:ArrivedStart: 06-09-2024 End: 74-14-2356BTQ W Auto Differential panel - BloodCBC and differential Lab Routine Recurrent sinus infections Expected: 06/09/2024 (Approximate), Expires: 06/09/2025NOMS HealthcareComment on above:Expected: 06/09/2024 (Approximate), Expires: 06/09/2025Start: 06-09-2024 End: 60-84-4027Kdpdbxuzgw / Tetanus Antibody PanelDiphtheria / Tetanus Antibody Panel Lab Routine Recurrent sinus infections Expected: 06/09/2024 (Approximate), Expires: 06/09/2025NOMS HealthcareComment on above:Expected: 06/09/2024 (Approximate), Expires: 06/09/2025Start: 06-09-2024 End: 06-76-5667IwQ [Mass/volume] in Serum or PlasmaIgA Lab Routine Recurrent sinus infections Expected: 06/09/2024 (Approximate), Expires: 06/09/2025NOMS HealthcareComment on above:Expected: 06/09/2024 (Approximate), Expires: 06/09/2025Start: 06-09-2024 End: 62-03-3092WvM [Units/volume] in Serum or PlasmaIgE Lab Routine Recurrent sinus infections Expected: 06/09/2024 (Approximate), Expires: 06/09/2025NOMS HealthcareComment on above:Expected: 06/09/2024 (Approximate), Expires: 06/09/2025Start: 06-09-2024 End: 34-95-7469VkZ [Mass/volume] in Serum or PlasmaIgG Lab Routine Recurrent sinus infections Expected: 06/09/2024 (Approximate), Expires: 06/09/2025[facility] Work Phone: Comment on above:Expected: 06/09/2024 (Approximate), Expires: 06/09/2025Start: 06-09-2024 End: 23-90-6765YiI [Mass/volume] in Serum or PlasmaIgM Lab Routine Recurrent sinus infections Expected: 06/09/2024 (Approximate), Expires: 06/09/2025NOS[facility] HealthcareComment on above:Expected: 06/09/2024 (Approximate), Expires: 06/09/2025Start: 06-09-2024 End: 39-40-1867Bhqljxr toxoid, IgGTetanus toxoid, IgG Lab Routine Recurrent sinus infections Expected: 06/09/2024 (Approximate), Expires: 06/09/2025NOMS HealthcareComment on above:Expected: 06/09/2024 (Approximate), Expires: 06/09/2025Start: 05-28-2024 End: 82-37-0264Wwyjqhi encounter zzseomirg91/13/2024 4:00 PM EST Office Visit [facility] [address] [id number] Jennifer Jennings PA [address] [place] [address] [facility] BCP OBStart: 10-25-2368Vwzyx-19 Vaccine ( season)Covid-19 Vaccine ( season)[facility]: [facility]2024 Influenza vaccinationNOSC HealthcareStart: 26-05-4528Sqpvprjqa vaccination Influenza Vaccine (#1)[facility]: 64-19-4057SWUWR-19 Vaccine (3 - Pfizer series)COVID-19 Vaccine (3 - Pfizer series)[facility]: 97-23-0437Bnrkfiyqlugilt of varicella zoster vaccineZoster (Shingles) Vaccine (1 of 2)[facility]: 96-11-9748Vyfuoctjpdyk Vaccine: 50+ (1 of 1 - PCV)Pneumococcal Vaccine: 50+ (1 of 1 - PCV)[facility]: 61-02-4991Dkvaezme Vaccine (1 of 2)Shingrix Vaccine (1 of 2)[facility]: 19-50-3475Uwihhg Vaccines (1 of 2)Zoster Vaccines (1 of 2)[facility]: 62-79-2537Zqcgw panel Lipid ScreeningGalion Hospitaltart: 10-90-7748Srutqtuvn for malignant neoplasm of colonGalion Hospitaltart: 43-34-1826Grqsxvodp for malignant neoplasm of breastUnGrant Hospital: 23-50-0459Xhucmdzzn for malignant neoplasm of cervixGolden Valley Memorial HospitalStart: 74-76-1233CJuQ/Tdap/Td Vaccines (1 - Tdap)DTaP/Tdap/Td Vaccines (1 - Tdap)[facility]: 40-78-5535Dcyamvshc for malignant neoplasm of cervixMer[facility] Health [facility] Hospital: 67-92-6550RWdL,Tdap and Td Vaccines (1 - Tdap)DTaP,Tdap and Td Vaccines (1 - Tdap)[facility]: 65-67-2858Qjhnweklb B Vaccine (1 of 3 - 19+ 3-dose series)Hepatitis B Vaccine (1 of 3 - 19+ 3-dose series) [facility]: 25-73-6746Jwlig microalbumin profileDTaP,Tdap,Td Vaccine (1 - Tdap)[facility]: 81-32-2538Pwmge BMI ScreeningAdult BMI ScreeningAtrium Health Harrisburgtart: 70-12-9932Crfodu PCP Team Chronic Disease VisitAnnual PCP Team Chronic Disease VisitGalion Hospitaltart: 1983 Anxiety ScreeningAnxiety ScreeningGalion Hospitalt[facility]: 69-92-2809BP Controlled (<130/80)BP Controlled (<130/80)[facility]: 46-86-9834Ycgcefsgoq ScreeningDepression ScreeningGalion Hospitaltart: 81-35-4654Mhbvtzpv mellitus screeningDiabetes ScreeningUnGrant Hospital: 1983 Hepatitis C screeningHepatitis C ScreeningC[facility] Clinic [facility] Start: 72-21-1772SDB screeningHIV ScreeningGalion Hospitaltart: 1983 SpirometrySpirometryGalion Hospitaltart: 51-89-5238Pqejgttqfo Screening Depression ScreeningBlanchard Valley Health System SystemStart: 90-06-6529Bscxtdj Screening Tobacco ScreeningProUniversity Hospitals [facility] SystemStart: 93-78-8260VTU Vaccines (1 of 1 - Standard series)MMR Vaccines (1 of 1 - Standard series)[facility]: 10-47-4860Hgcjiwzdb B Vaccines (1 of 3 - 3-dose series)Hepatitis B Vaccines (1 of 3 - 3-dose series)[facility]: 41-51-6009MMY screeningHIV ScreeningMercy Health Anderson Hospital: 91-21-5744Kectt panelLipid PanelMercy Health Anderson Hospital: 13-81-6404Ccarzmjtd for malignant neoplasm of colonUnGrant Hospital: 89-14-2483Jdinta Adult PhysicalYearly Adult PhysicalUnLouis Stokes [facility] Medical CenterEC 12 leadECG 12 lead ECG STAT 08/07/2023 8:33 AM [facility] Service Area Work Phone: End: 46-62-8397SXO COMPLETECommunity Memorial Hospital Work Phone: Comment on above:ONCE for 1 Occurrences starting 09/30/2024 until 09/30/2024 End: 02-68-4387WKSOWP OXIDE, EXHALEDNITRIC OXIDE, EXHALED PFT Routine Severe persistent asthma without complication 1 Occurrences starting 08/12/2024 until 09/12/2025[facility] Work Phone: Comment on above:1 Occurrences starting 08/12/2024 until 09/12/2025 End: 91-69-6549SDEIMAFKMT WITH DILATOR IF OBSTRUCTEDSPIROMETRY WITH DILATOR IF OBSTRUCTED PFT Routine Severe persistent asthma without complication 1 Oc currences starting 08/12/2024 until 6Cwilson memorial hospital ClinicComment on above:1 Occurrences starting 08/12/2024 until 09/12/2025STREPTOCOCCUS PNEUMONIA AB (IGG) (23 SEROTYPES)STREPTOCOCCUS PNEUMONIA AB (IGG) (23 SEROTYPES) Lab Routine Recurrent sinus infections Ordered: 06/09/2024NOSC HealthcareComment on above: Ordered: 06/09/2024Tissue Pathology biopsy reportCommunity Memorial Hospital Work Phone: Comment on above:Release Upon Ordering for 1 Occurrences starting 09/30/2024, 1 completed Payers DatePayer CategoryPayerPolicy [id number] Hospital of [id number] 23-41-6205OtjgRehabilitation Hospital of [facility] [place] Managed Care - [place] [id number]8.81771-18-8071Xggrjky 1.2840.046454.1.13.647.2.7.3.28729[id number] 2.0.1.195705.3.579.2.36737-11-7288Wacfvgm8396750 2..1.838104.3.579.2.04011-02-8264Zvlbysw5539424 2..1.331768.3.579.2.08084-54-1411Hhaznqc7018180 2..840.1.380869.3.579.2.54902-80-2194Tcmnmrh8505243 2..840.1.736068.3.579.2.80045-72-9962Owanmbq01917802 2..840.1.094596.3.579.2.831470-29-4765Ddlnnrh0140032 2.840.1.026928.3.579.2.019896-62-5901Lzdufjv5367761 2..840.1.061090.3.579.2.650845-84-0820Kffu-tno44862799643-14-6873Jbxpsyx [id number] 2.16840.1.504129.3.579.2.531 Social History DateTypeDetailFacilityUnknown if ever smokedNokindred hospital [employer] Other Start: 04-16-2024 End: 39-27-1996Nyj Assigned At BirthNokindred hospital [employer] Other Tobacco smoking status NHISTobacco smoking consumption unknownBlanchard Valley Health System SystemStart: 37-68-9458Tgk Assigned At BirthNot on file [facility] Work Phone: Start: 07-28-2023 End: 42-20-3975Rdxoyika to SARS-CoV-2 (event)Not sureUnLouis Stokes [facility] Center Work Phone: Start: 05-23-2023 End: 17-51-0852Qgilxlm smoking status NHISNever smoked tobaccoNOMS Healthcare Start: 04-16-2024 End: 66-46-3052Ligmnkd of Social functionNOMS HealthcareStart: 27-78-1787Zbg assigned at birthFemalHeber Valley Medical Center HealthcareStart: 74-12-3134Bixeqv identityIdentifies as female gender (finding)[facility] HealthcareStart: 55-99-0268Zxbtvf orientation Heterosexual (finding)[facility] HealthcareStart: 09-21-6389Uteupxo use and exposure Smokeless tobacco non-userGalion Hospitaltart: 48-04-6273Gouvxjrk Score (1- 100), lower number is lower bflj45ARRZ HealthcareStart: 24-78-6235ZkzTjsgpg (finding)[facility] SystemStart: 09-16-2024 End: 61-32-6067Hhxgqtacy beverage intakeLifetime non-drinker (finding)[facility] Clinical Notes 12-14-2022 to 05-22-2025 Note Date & IttlQctsAdlgqpiv90-98-[address] Vernon, see in media tab dated 05/11/25. Message left for patient to call and schedule an EUS/ERCP with Dr. Chantell Lopez.[facility]04-03-2025 NoteHNO ID: [id number] Author: JONO GONZALEZ III, MD Service: ? [...] Plan: Return to office PRN. Jono Gonzalez III [facility]04-03-2025 History of Present illness Narrative* Jono [...] Jono Gonzalez III, MD documented in [place] encounterCra[place] [address]20-2025 Telephone encounter Note * Telephone Encounter - [...] then would need to be off longer. [facility] Work Phone: [phone] Miscellaneous Notes* Telephone Encounter - Shweta Hsu [...] to be off longer. documented in this encounterRegency Hospital [facility] West03-18-2025 NoteHNO ID: [id number] Author: GOSIA SÁNCHEZ RN Service: ? Author Type: Registered Nurse Type: Nursing Progress Note Filed: 09/30/2024 11:50 Note Text: Dr. Elise has cleared pt for discharge. EKG WNL. Chest heaviness is gone. [facility]03-18-2025 Nurse Note* Gosia Sánchez RN - 09/30/2024 11:[address] Elise has cleared pt for discharge. EKG WNL. Chest heaviness is gone. [facility]03-18-2025 Nurse Note* Gosia Sánchez RN - 09/30/2024 11:[address] Elise has cleared pt for discharge. EKG WNL. Chest heaviness is gone. * Goisa Sánchez RN - 09/30/2024 11:14 AM EDT C/O chest heaviness. VSS. O2 on at 2L. H/O recent chest heaviness. SD ruled out. documented in this encounterRegency Hospital [facility] West03-18-2025 NoteHNO ID: [id number] Author: GOSIA SÁNCHEZ RN Service: ? Author Type: Registered Nurse Type: Nursing Progress Note Filed: 09/30/2024 11:16 Note Text: C/O chest heaviness. VSS. O2 on at 2L. H/O recent chest heaviness. SD ruled out.[facility]03-18-2025 Nurse Note* Gosia Sánchez RN - 09/30/2024 11:14 AM EDT C/O chest heaviness. VSS. O2 on at 2L. H/O recent chest heaviness. SD ruled out. [facility]03-18-2025 NoteHNO ID: [id number] Author: EUSEBIO VENEGAS APRN.HEATING AND VENTILATING WORKER Service: Anesthesiology Author Type: Nurse Stranding Machine Operator Helper Type: Anesthesia Procedure Notes Filed: 09/30/2024 09:30 Note Text: ANESTHESIOLOGY PROCEDURE NOTE Airway General Information Procedure Start Time/Medication Administration: 09/30/2024 9:19 AM Procedure End Time: 09/30/2024 9:19 AM Patient location during procedure: OR Patient identity confirmed: arm band and patient Staffing HEATING AND VENTILATING WORKER: Eusebio Venegas APRN.HEATING AND VENTILATING WORKER Performed by: HEATING AND VENTILATING WORKER Indications and Patient Condition Indications for airway [...] 1 Airway not difficult SIGNATURE: Eusebio Venegas APRN.CRNA PATIENT NAME: Praveena Dacosta DATE: September 30, 2024 TIME: 9:30 AM CSN: [id number] Clinic [facility]03-18-2025 Surgery Surgical operation note* Operative Report - Jono Gonzalez III, MD - 09/30/2024 9:12 AM EDT OPERATIVE REPORT LOG ID: [id number] SURGERY/PROCEDURE DATE: 09/30/2024 INCISION/PROCEDURE START TIME: 9:27 AM INCISION CLOSE/PROCEDURE END TIME: 9:44 AM SURGEON: Jono Gonzalez III, MD RIG MECHANIC: Yesenia Monson PA-C OPERATION: Laparoscopic cholecystectomy (80188). ANESTHESIA: GETA and 20 mL of 0.5% [...] DATE: September 30, 2024 TIME: 9:45 AM [facility]03-18-2025 Surgical operation note* Operative Report - Jono Gonzalez III, MD - 09/30/2024 9:12 AM EDT OPERATIVE REPORT LOG ID: [id number] SURGERY/PROCEDURE DATE: 09/30/2024 INCISION/PROCEDURE START TIME: 9:27 AM INCISION CLOSE/PROCEDURE END TIME: 9:44 AM SURGEON: Jono Gonzalez III, MD RIG MECHANIC: Yesenia Monson PA-C OPERATION: Laparoscopic cholecystectomy (69286). ANESTHESIA: GETA and 20 mL of 0.5% [...] 2024 TIME: 9:45 AM documented in this encounterRegency Hospital [facility]03-18-2025 History and physical note * Jono Gonzalez [...] DATE: September 30, 2024 TIME: 8:39 AM [facility]03-18-2025 History and physical note* Jono Gonzalez III, [...] 2024 TIME: 8:39 AM documented in this encounterRegency Hospital [facility] West03-18-2025 Hospital Discharge instructions* Discharge Instr - Other Orders* Jono Gonzalez III, MD - 09/30/2024 8:39 AM EDT If you have waterproof skin glue covering the wound(s), you do not need any additional dressing. Donot use ANY lotions or ointments as these will remove the glue prematurely and the skin edges may separate. [place] and Stitches- call the office for removal, [...] per day. We also recommend taking an mxlg-kuj-kdzgyuz stool softer (ie Colace). For questions or concerns occurring immediately post-operatively regarding your IV site, intubation(ie: sore throat, teeth/mouth issues), urinary issues, or anything else not related to the surgicalsite: CALL THE FACILITY WHERE YOUR PROCEDURE WAS DONE [facility] Operating Room: [facility] [place]: CALL THE OFFICE If you have any questions or concerns. CALL IMMEDIATELY IF YOU HAVE NAUSEA/VOMITING, FEVER GREATER THAN 101, INCREASED ABDOMINAL PAIN, INCREASED PAIN, BULGING OR REDNESS AROUND THE INCISION, OR A NEWONSET OF PUS DRAINAGE FROM THE WOUND. Contact my office at [phone] to arrange a follow up appointment in 14-21 days. Jono Gonzalez III, MD documented in this encounterRegency Hospital [facility]03-04-2025 Telephone encounter Note * Telephone Encounter - Geovany Moreland APRN.CNP - 09/16/2024 1:37 PM EST Hi , It was a pleasure seeing you this morning in the Pre-Anesthesia Clinic. I wanted to help with your request to establish care with a primary care physician at [facility]. Unfortunately, many of the physicians at that location are not currently accepting new patients. You can reach the [place] Scheduling number at [phone], and they may be able to help you find aphysician who is accepting new patients. Additionally, I ve heard that the [place] location ([place] few miles further [place]) has primary care providers with availability, and their contact number is [phone]. I hope this helps, and feel free to reach out if you need anything further! Best regards, Geovany Moreland APRN.CNP [facility]03-04-2025 Miscellaneous Notes* Telephone Encounter - Geovany Moreland APRN.CNP - 09/16/2024 1:37 PM EST Hi , It was a pleasure seeing you this morning in the Pre-Anesthesia Clinic. I wanted to help with your request to establish care with a primary care physician at [facility]. Unfortunately, many of the physicians at that location are not currently accepting new patients. You can reach the [place] Scheduling number at [phone], and they may be able to help you find aphysician who is accepting new patients. Additionally, I ve heard that the [place] location (a few miles further East) has primary care providers with availability, and their contact number is [phone]. I hope this helps, and feel free to reach out if you need anything further! Best regards, Geovany Moreland APRN.SALOMON documented in this encounterRegency Hospital [facility]03-04-2025 Instructions* Patient Instructions* Geovany Moreland APRN.CNP - 09/16/2024 7:21 AM EST PATIENT PREOPERATIVE INSTRUCTIONS Jono Gonzalez III has scheduled you for your procedure at this surgery center: [facility]: [phone] --[address] [place] [address]. Please read below carefully for your personalized instructions. OR [facility]: [phone] --[address] [place] [address]. Please enter through the entrance closest to [...] office. If you are currently using a mkyc-aph-emkq injectable or oral medication for diabetes or [...] Procedures: - YOU MUST HAVE A RESPONSIBLE DRY HOUSE TENDER TAKE YOU HOME. A CLINICAL PRACTITIONER OR SPOOL MAKER CANNOT BE MADE A RESPONSIBLE DRY HOUSE TENDER. - We recommend that a responsible person [...] Advance Directive, please fax a copy to [phone] or email to for it to be [...] your chart that day. documented in this encounterRegency Hospital [facility] West03-04-2025 History and physical note * Geovany Moreland [...] Had COVID infection 08/31/24, was treated at [facility]. Today she is asymptomatic, Lungs CTA, [...] STOP-Bang Score: 0 (JANIS CPAP compliant ) [id number] Score: Age: <65 Sex: female CHF history: No Hypertension history: Yes Stroke/TIA/thromboembolism history: No Vascular disease history: No Diabetes history: No TVT7LW3-UOMt Score: 2 ARISCAT Score: Age: 51-80 Preoperative [...] fevers. 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 [...] or incontinence,, stones or chronic kidney disease BOXCAR WEIGHER: Negative for abnormal vaginal bleeding, abnormal vaginal [...] EKG in Summarization Report in care everywhere [facility] 08/31/24 CMP 08/31/24 Lab Value Units [...] EKG in Summarization Report in care everywhere [facility]) [facility] Test Date: 2024-08-30 Pat Name: PRAVEENA DAOCSTA Department: Room: - Gender: Female Service Order Clerk: : 1965 Requested By: RAKESH VERNON Order Number: [id number] Reading MD: RAKESH VERNON Measurements Intervals [place] Rate: 96 P: 65 [place]: 174 QRS: 88 QRSD: 68 T: 40 [...] nuclear medicine myocardial perfusion scan. Dictated by: Vika Collazo M.D. on 03/06/2024 08/31/24 CT/CT angio chest [...] Praveena Dacosta DATE: 09/16/2024 TIME: 7:52 AM [facility]03-04-2025 History and physical note* Geovany Moreland APRN.CNP [...] Had COVID infection 08/31/24, was treated at [facility]. Today she is asymptomatic, Lungs CTA, [...] STOP-Bang Score: 0 (JANIS CPAP compliant ) [id number] Score: Age: <65 Sex: female CHF history: No Hypertension history: Yes Stroke/TIA/thromboembolism history: No Vascular disease history: No Diabetes history: No PAE1UB2-XISd Score: 2 ARISCAT Score: Age: 51-80 Preoperative [...] fevers. 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 [...] or incontinence,, stones or chronic kidney disease BOXCAR WEIGHER: Negative for abnormal vaginal bleeding, abnormal vaginal [...] and EKG in Summarization Report in care [facility] 08/31/24 CMP 08/31/24 Lab Value Units [...] EKG in Summarization Report in care everywhere [facility]) [facility] Test Date: 2024-08-30 Pat Name: PRAVEENA DACOSTA Department: Room: - Gender: Female Service Order Clerk: : 1965 Requested By: RAKESH VERNON Order Number: [id number] Reading MD: RAKESH VERNON Measurements Intervals [place] Rate: 96 P: 65 [place]: 174 QRS: 88 QRSD: 68 T: 40 [...] nuclear medicine myocardial perfusion scan. Dictated by: Vika Collazo M.D. on 03/06/2024 08/31/24 CT/CT angio chest [...] 09/16/2024 TIME: 7:52 AM documented in this encounterRegency Hospital [facility]03-03-2025 Telephone encounter Note * Telephone Encounter - Marilou Roger - 09/15/2024 2:16 PM EST Spoke with pt scheduled for surgery. [facility]03-03-2025 Miscellaneous Notes* Telephone Encounter - Marilou Roger - 09/15/2024 2:16 PM EST Spoke with pt scheduled for surgery. * Telephone Encounter - Marilou Roger - 09/15/2024 1:17 PM EST Images from the original note were not included. documented in this encounterRegency Hospital [facility]03-03-2025 Telephone encounter Note * Telephone Encounter - Marilou Roger - 09/15/2024 1:17 PM EST Images from the original note were not included. [facility]02-28-2025 History and physical note* Jono Gonzalez III, [...] was discussed with the patient or authorized customer service representative. The patient or authorized customer service representative has agreed to proceed [...] MD cc: Referring provider Elgin Pelayo MD [facility]02-28-2025 History and physical note* Jono Gonzalez III, [...] was discussed with the patient or authorized customer service representative. The patient or authorized customer service representative has agreed to proceed [...] provider Elgin Pelayo MD documented in this encounterRegency Hospital [facility] West02-27-2025 Telephone encounter Note * Telephone Encounter - Shweta Hsu RN - 09/11/2024 3:55 PM EST Called referring providers office and spoke with staff to please send a copy of US or CT that denotes gallstones as no imaging available. Office fax number given [facility] Work Phone: [phone]) 733-431402-27-2025 Miscellaneous Notes* Telephone Encounter - Shweta Hsu [...] but nothing showing yet. documented in this encounterRegency Hospital [facility] West02-27-2025 Telephone encounter Note * Telephone Encounter - [...] done an update but nothing showing yet. [facility]02-04-2025 Telephone encounter Note* Telephone Encounter - Mattie Link MA - 08/19/2024 8:51 AM EST Image has been imported into [facility] and is available to view. [facility]02-04-2025 Miscellaneous Notes* Telephone Encounter - Mattie Link MA - 08/19/2024 8:51 AM EST Image has been imported into [facility] and is available to view. * Telephone Encounter - Mattie Link MA - 08/14/2024 11:49 AM EST Faxed image request to [facility] Confirmation received * Telephone Encounter - Mattie Link MA - 08/14/2024 10:59 AM EST Images from the original note were not included. Elgin Pelayo MD P Ln Pulm Nurse Could we try to obtain images of CT chest 02/13/2024 from [facility] in [facility]? Thanks [facility] Telephone encounter Note * Telephone Encounter - Mattie Link MA - 08/14/2024 11:49 AM EST Faxed image request to [facility] Confirmation received [facility]01-30-2025 Telephone encounter Note* Telephone Encounter - Mattie Link MA - 08/14/2024 10:59 AM EST Images from the original note were not included. Elgin Pelayo MD P Pulm Nurse Could we try to obtain images of CT chest 02/13/2024 from [facility] in [facility]? Thanks [facility]01-28-2025 Instructions* Patient Instructions* Elgin Pelayo MD - [...] office or send me a message through Knip if you have any questions. Sincerely, Elgin Pelayo MD documented in this encounterReg[facility]01-28-2025 History and physical note * Elgin Pelayo MD - 08/12/2024 1:19 PM EST . [facility] - Pulmonology Clinic Initial Visit Note Ms. Dacosta is a 59 year old female who [facility] the [facility]. Consultation requested by Rakesh Vernon MD for [...] getting sick again Evaluated for immunodeficiency by Tire Setter at [facility]. On 06/09/2024. Had PFTs. FENO 12ppb. FEV1 [...] personally reviewed by me Data Reviewed from [facility] (in addition to that noted in HPI, and Past histories above): (Data from patient's OSH mychart shown on phone) CBC: last eos 100 (05/2024) IgE: 45 (wnl) PFT: 08/01/2024 Ratio 75% (normal) FEV1 120%, FVC 125% Reported positive bronchodilator response based on FEF 25-75. RV 129% (high) TLC 133% (high) DLCOc 10 3% (normal) CT Chest: 02/13/2024 (OSH, images unavailable) - [facility] in [facility] Lung: Scattered linear densities and calcifications, chronic scarring is favored. Mild dependent atelectasis. No focal parenchymal infiltrates or significant pulmonary nodules. Pleura: No mass, effusion, pneumothorax Lizeth: Small calcified right hilar lymph nodes. Assessment and Plan: Ms. Dacosta is a 59 year old female who [facility] for evaluation of bronchitis. #Recurrent bronchitis #Asthma [...] oral steroids, ultimately deferred -Should keep her punchboard stuffer appointment for follow-up testing -I will attempt to obtain images of her outside hospital CT -Follow-up in 3 months with spirometry and nitric oxide before hand Elgin Pelayo MD Pulmonary and Critical Care Staff [facility] Level 4 [facility]01-28[facility] History and physical note* Elgin Pelayo MD - 08/12/2024 1:19 PM EST . [facility] Pulmonology Clinic Initial Visit Note Ms. Dacosta is a 59 year old female who [facility] the [facility]. Consultation requested by Rakesh Vernon MD for [...] getting sick again Evaluated for immunodeficiency by Tire Setter at [facility]. On 06/09/2024. Had PFTs. FENO 12ppb. FEV1 [...] tobacco: Never Never smoker. Worked at a [employer] facility for 27 years. Works in the [...] personally reviewed by me Data Reviewed from [facility] (in addition to that noted in HPI, and Past histories above): (Data from patient's OSH mychart shown on phone) CBC: last eos 100 (05/2024) IgE: 45 (wnl) PFT: 08/01/2024 Ratio 75% (normal) FEV1 120%, FVC 125% Reported positive bronchodilator response based on FEF 25-75. RV 129% (high) TLC 133% (high) DLCOc 10 3% (normal) CT Chest: 02/13/2024 (OSH, images unavailable) - [facility] in [facility] Lung: Scattered linear densities and calcifications, chronic scarring is favored. Mild dependent atelectasis. No focal parenchymal infiltrates or significant pulmonary nodules. Pleura: No mass, effusion, pneumothorax Lizeth: Small calcified right hilar lymph nodes. Assessment and Plan: Ms. Dacosta is a 59 year old female who [facility] to the [facility] for evaluation of bronchitis. #Recurrent bronchitis #Asthma [...] oral steroids, ultimately deferred -Should keep her punchboard stuffer appointment for follow-up testing -I will attempt to obtain images of her outside hospital CT -Follow-up in 3 months with spirometry and nitric oxide before hand Sumir R Daniela, MD Pulmonary and Critical Care Staff [facility] Level 4 documented in this encounterReg[facility]12-18-[facility]24 Telephone encounter Note * Telephone Encounter - Dave Francis DO - 07/02/2024 12:42 PM EST Needs refill of modafinil called into the [id number] Miscellaneous Notes* Telephone Encounter - Dave Francis DO - 07/02/2024 12:42 PM EST Needs refill of modafinil called into the sleep clinic documented in this encounterGolden Valley Memorial [id number] History of Present illness Narrative* Breann Briscoe [...] antibiotics. 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 She has occasional wheeze. She has albuterol [...] treat her with inhaled steroid therapy with Trelemelanie. Recurrent infections-given her current respiratory infections and use of antibiotics we agreed to obtain a humoral immune survey and have her follow up in several weeks to discuss the results. Follow-up in 3 weeks. documented in this encounterGolden Valley Memorial [id number] Miscellaneous Notes* Telephone Encounter - DEIDRA Muller - 05/15/2024 2:11 PM EDT I called [facility] and left a message to call me to schedule an appointment and a surgery with Dr. Lundberg. I left my phone number and extension on her voicemail. Dr. Lundberg saw the patient at [facility] on 05/11/24 and would like to do [...] would like to do. [facility] Tele[facility] encounter Note* Telephone Encounter - DEIDRA Muller - 05/15/2024 2:11 PM EDT I called Praveena and left a message to call me to schedule an appointment and a surgery with Dr. Lundberg. I left my phone number and extension on her voicemail. Dr. Lundberg saw the patient at [facility] on 05/11/24 and would like to do a colonoscopy in the next month. [facility] Telephone encounter Note* Telephone Encounter - DEIDRA [...] know what she would like to do. [facility] Interview Master [id number] History of Present illness Narrative* Dave Francis, - 04/16/2024 9:30 AM EDT Images from [...] was counseled on the risks of stroke, SD, and sudden with JANIS, along with the [...] to clinic: 3 months documented in this encounterGolden Valley Memorial [id number] Hospital Discharge instructions* Discharge Instructions* Neelima Peralta [...] as needed for pain. [facility] Work Phone: [phone]) 462-703206-01-2023 Evaluation note* Encounter Date Diagnosis Assessment Notes [...] resolved. Patient verbalized understanding of treatment plan [facility] Other Evaluation note* Diagnosis Fall, initial encounter- Primary Closed head injury, initial encounter documented in this encounter [facility] Work Phone: Evaluation note* Diagnosis Hypersomnia- Primary Hypersomnia, unspecified JANIS (obstructive sleep apnea) Obstructive sleep apnea (adult) (pediatric) Snoring Other dyspnea and respiratory abnormality Memory loss documented in this encounter [facility] HealthcareEvaluation note* Diagnosis Wheeze- Primary Wheezing Chronic rhinitis Recurrent sinus infections Unspecified sinusitis (chronic) documented in this encounter [facility] HealthcareEvaluation note* Diagnosis Hypersomnia Hypersomnia, unspecified documented in this encounter [facility] HealthcareEvaluation note* Diagnosis Severe persistent asthma without complication- Primary Shortness of breath documented in this encounter [facility]* Diagnosis Calculus of gallbladder without cholecystitis without obstruction- Primary Calculus of gallbladder without mention of cholecystitis or obstruction documented in this encounter [facility]* Diagnosis Pre-op examination- [...] Following with Dr. Pelayo, Last Office Visit: 1/30/25 History of : 2009 - had a wedge resection of her left lung for a mass. FDG avid on PET. Ultimately determined nate pleural based. Mass resected. 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 No malignancy. Had COVID infection 08/31/24, was treated at [facility]. Today she is asymptomatic, Lungs CTA, [...] lifestyle modifications encouraged documented [facility] this encounter [facility]* Diagnosis Calculus of [...] cholecystitis or obstruction documented in this encounter [facility]* Diagnosis Pre-op examination- [...] cholecystitis or obstruction documented in this encounter [facility] note* Diagnosis Pre-op examination- Primary Preoperative examination, unspecified Uncomplicated asthma, unspecified asthma severity, unspecified whether persistent (HCC) Pure hypercholesterolemia, unspecified Hypertension, unspecified type Sleep apnea, unspecified type Biliary calculus of other site without obstruction Hypothyroidism, unspecified type Post-operative state- Primary Other postprocedural status documented in this encounter [facility] note* Diagnosis Onset Date Resolution Status Admit Date Daytime hypersomnolence acuteAugust 2024 11:17amOSA (obstructive sleep apnea)acuteAugust 2024 11:17amSnoringacuteAugust 2024 11:17am [facility] Work Phone: History general Narrative - Reported* Type Description Date Medical History high blood pressure Medical Historythyroid diseaseSurgical HistoryC sectionSurgical Historylobectomy Surgical Historywrist surgerySurgical Historybowel surgeryHospitalization Historysee above [facility] Other InstructionsNot on filedocumented in this encounter ProMedicModafirma SystemInstructionsNot on filedocumented in this encounter [facility] SystemReason for referral (narrative)* Outpatient Procedure (Routine) - Pending ReviewSpecialtyDiagnoses / ProceduresReferred By Contact Referred To ContactRESPIRATORY INSTITUTE Diagnoses Severe persistent asthma without complication Procedures SPIROMETRY WITH DILATOR IF OBSTRUCTED BRNCDILAT RSPSE SPMTRY PRE&[place] [address] [place] [address] [facility] [address] [place] [address] Referral IDStatusReasonStspartanburg DateExpiration DateVisits RequestedVisits [id number] Review Auto-Generated Referral * Outpatient Procedure (Routine) - Pending ReviewSpecialtyDiagnoses / Procedures Referred By ContactReferred To ContactCIBOLA GENERAL HOSPITALIRATORY INSTITUTE Diagnoses Severe persistent asthma without complication Procedures NITRIC OXIDE, EXHALED NITRIC OXIDE [place] [address] [place] [address] [facility] [address] [place] [address] Referral IDStaTameraandrei DateExpiration DateVisits RequestedVisits [id number] Review Auto-Generated Referral [facility] WestReason for referral (narrative)No reason for referral information availableThe [facility] Hospital Work Phone: Reason for visit Narrative* Auth/Cert (Routine) SpecialtyDiagnoses / ProceduresReferred By ContactReferred To ContactSAINT ELIZAB[facility] Diagnoses Calculus of gallbladder without cholecystitis without obstruction Calculus of gallbladder without cholecystitis without obstruction [K80.20] Procedures LAPS SURG CHOLECYSTECTOMY W/CHOLANGIOGRAPHY LAPAROSCOPIC CHOLECYSTECTOMY WITH GRAMS Ambulatory Surgery [address] [place] [address] Phone: tel: Referral IDStatusMichaelaasonEl Paso DateExpiration DateVisits RequestedVisits [id number] [facility] Summary Purpose Family History No Family History Records Found Relationship Condition Age at Onset Recorded Date/T brissa brother Hypertension Unknown fatherDiabetes mellitusUnknownHeart diseaseUnknownDeceasedUnknownmotherHeart diseaseUnknown Advance Directives No Advanced Directives Records Found Advance Directive Response Recorded Date/ Time Advance Directives No May 11:53am Chief Complaint and Reason for Visit Reason for Visit Admit Date Daytime hypersomnolence February 18, 2025 11:17am JANIS (obstructive sleep apnea) February 11:17am Snoring February 18, 2025 11: 17am Additional Source Comments INFORMATION SOURCE (unrecogn ized section and content) DATE CREATED AUTHOR 08/14/2022 [facility] DATE CREATED AUTHOR AUTHOR'S ORGANIZ ATION 08/31/2023 [facility] DATE CREATED AUTHOR AUTHOR'S ORGANIZ ATION 04/08/2024 [facility] DATE CREATED AUTHOR AUTHOR'S ORGANIZ ATION 06/12/2024 [facility] DATE CREATED AUTHOR AUTHOR'S ORGANIZ ATION 06/28/2024 [facility] DATE CREATED AUTHOR AUTHOR'S ORGANIZ ATION 09/09/2024 [facility] DATE CREATED AUTHOR AUTHOR'S ORGANIZ ATION 10/19/2024 [facility] DATE CREATED AUTHOR AUTHOR'S ORGANIZ ATION 05/26/2025 [facility] REASON FOR VISIT (unrecogniz ed section [...] scaring.Seen Allergy in [facility] CenterReasonCommentsImage requestReasonCommentsNew Patient CholelithiasisReasonCommentsPre-Op VisitReasonCommentsSchedule SurgeryReason CommentsPost Op Follow UpPod 16 f/u after having cholecystectomy. Scheduled Active and Recently Administ ered Medications (unrecognized section and content) Medication Order/ fentaNYL PF (Sublimaze) injection 50 mcg (COMPLETED) 50 mcg, intravenous, Once, On Sun08/07/23 at 0815, For 1 dose * 0825 (Given - Provider: Miya Forte RN) Medication Order/ acetaminophen 1,000 mg tab(s) (TYLENOL) (CANCELED) 1,000 mg, ORAL, DIRECTED, Starting on Sun09/30/24 at 0800, Until Sun09/30/24 at 0959, pre o[ med, Preprocedure * 0744 (Given - Provider: Jsoie Ríos, RONALD) ciprofloxacin iv piggyback 400 mg in D5W 200 mL (CIPRO) (COMPLETED) 400 mg, INTRAVENOUS, at 200 mL/hr, Administer over 60 Minutes, ONCE, 1 dose, On Sun09/30/24 at 0900, Antimicrobial indication: Prophylaxis: Purpose of antimicrobial is to prevent infection., Pharmacist may modify dose per [facility] dose optimization consult agreement: Yes, Preprocedure * [...] Sun10/01/24 at 0303 * 1030 (Due) Medication Order/ acetaminophen 650 mg tab(s) (TYLENOL) 650 mg, [...] DateEnd Date Rakesh Vernon MD [address] [facility] [place] [address] PCP - General09/06/09Team MemberRelationshipSpecialtyStart DateEnd Date Rakesh Vernon MD [address] [place] [facility] [place] [address] PCP - [facility]05/24/23Team MemberRelationshipSpecialtyStart DateEnd Date Rakesh Vernon MD [address] [place] [facility] [place] [address] PCP - Generalmi Hieeurmf08/9/23Team MemberRelationshipSpecialtyStart DateEnd Date Rakesh Vernon MD [address] [place] [facility] [place] [address] PCP - Generalmi Bweqyxej25/9/23Team MemberRelationshipSpecialtyStart DateEnd Date Rakesh Vernon MD [address] [place] [facility] [place] [address] PCP - GeneralFamily Yelqylgd24/9/23Team MemberRelationshipSpecialtyStart DateEnd Date Rakesh Vernon MD [address] [facility] [place] [address] PCP - GeneralFamily Xoffhfwp24/9/23Team MemberRelationshipSpecialtyStart DateEnd Date Rakesh Vernon MD [address] [place] [facility] [place] [address] PCP - GeneralFamily Plldgoii63/9/23Team MemberRelationshipSpecialtyStart DateEnd Date Rakesh Vernon MD [address] [facility] [place] [address] ReferringFamily Medicine08/06/24Team MemberRelationshipSpecialtyStart DateEnd Date Rakesh Vernon MD [address] [facility] [place] [address] ReferringFamily Medicine08/06/24Team MemberRelationshipSpecialtyStart DateEnd Date Rakesh Vernon MD [address] [facility] [place] [address] PCP - GeneralFamily Igublexy31/28/24Team MemberRelationshipSpecialtyStart Date End Date Rakesh Vernon MD [address] [facility] [place] [address] ReferringFamily Medicine08/06/24Team MemberRelationshipSpecialtyStart DateEnd Date Rakesh Vernon MD [address] [facility] [place] [address] ReferringFamily Medicine08/06/24Team MemberRelationshipSpecialtyStart DateEnd Date Rakesh Vernon MD [address] [facility] [place] [address] ReferringFamily Medicine08/06/24Team MemberRelationshipSpecialtyStart DateEnd Date Rakesh Vernon MD [address] [facility] [place] [address] ReferringFamily Medicine08/06/24Team MemberRelationshipSpecialtyStart DateEnd Date Rakesh Vernon MD [address] [facility] [place] [address] PCP - Generalmily Medicine09/19/24 Rakesh Vernon MD [address] [facility] [place] [address] Referringmi Medicine08/06/24Team MemberRelationshipSpecialtyStart DateEnd Date Rakesh Vernon MD [address] [facility] [place] [address] PCP - Generalmily Medicine09/19/24 Rakesh Vernon MD [address] [facility] [place] [address] ReferringFami Medicine08/06/24Team MemberRelationshipSpecialtyStart DateEnd Date Rakesh Vernon MD [address] [facility] [place] [address] PCP - Generalmily Medicine09/19/24 Rakesh Vernon MD [address] [facility] [place] [address] ReferringFamily Medicine08/06/24Team MemberRelationshipSpecialtyStart DateEnd Date Rakesh Vernon MD [address] [facility] [place] [address] PCP - GeneralFamily Yhsujmui67/28/24 Team Status: Active Member Role Status Dates Rakesh Vernon MD Primary Care Provider Active Team Status: Inactive Member Role Status Dates Rakesh Vernon MD Primary Care Provider Active Start: February 18, 2025 End: February 18natashaCharles Velasquez ProviderActiveStart: February 18, 2025 End: February 18, 2025Team MemberRelationshipSpecialtyStart DateEnd Date Rakesh Vernon MD PCP - GeneralFamily Bnizkxty54/9/23 Source Comments (unrecognize d section and content) In the event this informatio n is protected by the Federal Confidentiality of Alcohol and Drug Abuse Patient Records regulations: The Federal rules restrict any use of the information to criminally investigate or prosecute any alcohol or drug abuse patient.[facility] the event this information is protected by the Federal Confidentiality of Alcohol and Drug Abuse Patient Records regulations: The Federal rules restrict any use of the information to criminally investigate or prosecute any alcohol or drug abuse patient.[facility] WestIn the event this information is protected by the Federal Confidentiality of Alcohol and Drug Abuse Patient Records regulations: The Federal rules restrict any use of the information to criminally investigate or prosecute any alcohol or drug abuse patient.[facility] WestIn the event this information is protected by the Federal Confidentiality of Alcohol and Drug Abuse Patient Records regulations: The Federal rules restrict any use of the information to criminally investigate or prosecute any alcohol or drug abuse patient.[facility] WestIn the event this information is protected by the Federal Confidentiality of Alcohol and Drug Abuse Patient Records regulations: The Federal rules restrict any use of the information to criminally investigate or prosecute any alcohol or drug abuse patient.[facility] WestIn the event this information is protected by the Federal Confidentiality of Alcohol and Drug Abuse Patient Records regulations: The Federal rules restrict any use of the information to criminally investigate or prosecute any alcohol or drug abuse patient.[facility] WestIn the event this information is protected by the Federal Confidentiality of Alcohol and Drug Abuse Patient Records regulations: The Federal rules restrict any use of the information to criminally investigate or prosecute any alcohol or drug abuse patient.[facility] WestIn the event this information is protected by the Federal Confidentiality of Alcohol and Drug Abuse Patient Records regulations: The Federal rules restrict any use of the information to criminally investigate or prosecute any alcohol or drug abuse patient.[facility] WestIn the event this information is protected by the Federal Confidentiality of Alcohol and Drug Abuse Patient Records regulations: The Federal rules restrict any use of the information to criminally investigate or prosecute any alcohol or drug abuse patient.[facility] WestIn the event this information is protected by the Federal Confidentiality of Alcohol and Drug Abuse Patient Records regulations: The Federal rules restrict any use of the information to criminally investigate or prosecute any alcohol or drug abuse patient.[facility] Goals (unrecognized section and content) Goals may [...] BE BASED ON THE PRIMARY CLINICAL RECORDS. [facility]GO[facility]. provides no warranty or guarantee of the accuracy or completeness of information in this document.
[2025-06-05 16:13] LABS: Age Gdln ACOG Testing Note (.); IGP, Aptima HPV, rfx 16/18,45 Note (.)
== END 2025-06-02 19:44 | disposition home or self-care (01) ==
LOC: LAB 19:43
PROVIDERS: PCP Family Medicine; Visit Provider Physician Assistant
DX: Z01.419 Encounter for gynecological examination (general) (routine) without abnormal findings (principal)
CPT/HCPCS: 87624; 88175

== ENCOUNTER 2025-06-04 13:58 | Emergency (ER) | payer BC, SELFPAY ==
--- OUTSIDE RECORDS SUMMARY | 2025-06-02 11:00 | XMS_ITS | Encounter Summary ---
Author Organization [facility] Address [address] [place] [address] Care Team Providers Care Upper Tier Name Role Phone Sandeep Lundberg MD Primary Care Provider [phone] Reason for Visit * ReasonCommentsGynecologic Exam Encounter Details DateTypeDepartmentCare Team (Latest Contact Info)Inpajgrfjkp56/18/2025 11:00 AM ESTProcedure Visit [facility] [address] [facility] [place] [address] Jennifer Jennings PA [address] [facility] [address] [place], [facility]11 Well woman exam with routine gynecological exam; Encounter for screening mammogram for malignant neoplasm of breast; Osteoporosis, post-menopausal Social History Tobacco UseTypesPacks/DayYears UsedDateSmoking Tobacco: NeverCommentsNo Sex and Gender InformationValueDate RecordedSex Assigned at BirthFemale 05/23/2023 3:53 PM ESTLegal VakIzvzds80/15/2023 8:13 PM EDTGender IdentityFemale 05/23/2023 3:53 PM ESTSexual BouysmbbahxQdgoputt36/08/2023 3:53 PM ESTdocumented as of this encounter Last Filed Vital Signs Vital SignReadingTime TakenCommentsBlood Cnuqwrzi583/7406/02/2025 11:15 AM EST Pulse--Temperature--Respiratory Rate--Oxygen Saturation--Inhaled Oxygen Concentration--Fyaxxm27.1 kg (181 lb)06/02/2025 11:15 AM ESTHeight--Body Mass Index29. 2:23 PM ESTdocumented in this encounter Progress Notes * ANNA Waller - 06/02/2025 11:00 AM EST Reason for Appointment: Patient ID: Leida Laird is a 60 y.o. female who presents for Gynecologic Exam Patient presents today for Annual Exam. MEDICATIONS Current Outpatient Medications Medication Instructions FLUoxetine (PROZAC) 10 mg, Oral, Daily Rglstvdtggk-Hrkgxggna-Pwqhki (Trelegy Ellipta) 100-62.5-25 MCG/ACT aerosol powder 1 puff, Inhalation, Daily levothyroxine (SYNTHROID, LEVOXYL) 125 mcg, Oral, Daily lisinopril 10 mg, Oral, Daily modafinil (PROVIGIL) 200 mg, Oral, Daily ALLERGIES Allergies Allergen Reactions Penicillins Anaphylaxis Erythromycin Base GI intolerance Codeine Anxiety, GI intolerance and Rash Other Reaction(s): Agitated, Other: See Comments PROBLEMS Active Ambulatory Problems Diagnosis Date Noted No Active Ambulatory Problems Resolved Ambulatory Problems Diagnosis Date Noted No Resolved Ambulatory Problems Past Medical History: Diagnosis Date Anxiety High blood pressure Hypothyroid Kidney stones Sleep apnea HISTORY PAST MEDICAL HISTORY SOCIAL HISTORY Past Medical History: Diagnosis Date Anxiety High blood pressure Hypothyroid Kidney stones Sleep apnea Social History Tobacco Use Smoking status: Never Smokeless tobacco: Not on file Substance Use Topics Alcohol use: Not on file Drug use: Not on file FAMILY HISTORY No family history on file. SURGICAL HISTORY Past Surgical History: Procedure Laterality Date SECTION, LOW TRANSVERSE MASS EXCISION Left Mass Left Lobectomy - benign ORIF WRIST FRACTURE Right OTHER SURGICAL HISTORY deviated septum RENAL ARTERY STENT Kidney stent REVIEW OF SYSTEMS Review of Systems: Review of Systems Constitutional: Negative. HENT: Negative. Eyes: Negative. Respiratory: Negative. Cardiovascular: Negative. Gastrointestinal: Negative. Genitourinary: Negative. Musculoskeletal: Negative. Skin: Negative. Neurological: Negative. All other systems reviewed and are negative. Hematological: Negative. Endocrine: Negative. Allergic/Immunologic: Negative. OBJECTIVE Objective: Physical Exam Constitutional: Appearance: Normal appearance. She is well-developed. Genitourinary: Vulva normal. Cardiovascular: Rate and Rhythm: Normal rate and regular rhythm. Pulmonary: Effort: Pulmonary effort is normal. Breath sounds: Normal breath sounds. Abdominal: General: Bowel sounds are normal. There is no distension. Palpations: Abdomen is soft. Tenderness: There is no abdominal tenderness. There is no guarding or rebound. Musculoskeletal: General: No swelling. Normal range of motion. Right lower leg: No edema. Left lower leg: No edema. Neurological: Mental Status: She is alert and oriented to person, place, and time. Skin: General: Skin is warm and dry. Psychiatric: Mood and Affect: Mood normal. Behavior: Behavior normal. Vitals and nursing note reviewed. Exam conducted with a complaint supervisor present. Vitals: Estimated body mass index is 25.82 kg/m?? as calculated from the following: Height as of 06/09/24: 5' 6 . Weight as of 06/09/24: 160 lb. BP: No LMP recorded. Patient is postmenopausal. Assessment/Plan ICD-10-CM 1. Well woman exam with routine gynecological exam Z01.419 THIN PREP TIS PAP AND HR HPV DNA 2. Encounter for screening mammogram for malignant neoplasm of breast Z12.31 Bilateral screening mammogram Bilateral screening mammogram 3. Osteoporosis, post-menopausal M81.0 DEXA bone density Assessment/Plan Annual: Patient presents today for an annual exam. Patient states she is doing well and has no complaints. Pap was obtained without difficulty and patient had mammogram done w/PCP Dr. Toño collins/negative results.Patient given Dexa scan order to have scheduled/obtained. Orders Placed This Encounter Procedures Bilateral screening mammogram DEXA bone density Follow Up: Patient is to return in one year for annual unless needed otherwise. Documented by Calli Salas MA on behalf of: ANNA Waller documented in this encounter Plan of Treatment DateTypeDepartmentCare Team (Latest Contact Info)Uthqzpcllsk90/23/2026 9:00 AM ESTProcedure Visit [facility] [address] [facility] [place] [address] Jennifer Jennings PA [address] [facility] [place] [address] NameTypePriorityAssociated DiagnosesOrder ScheduleDEXA bone densityImaging Routine Osteoporosis, post-menopausal Expected: 06/02/2025 (Approximate), Expires: 06/02/2026THIN PREP TIS PAP AND HR HPV DNAPathology and CytologyRoutine Well woman exam with routine gynecological exam Ordered: 06/02/2025documented as of this encounter Visit Diagnoses Diagnosis Well woman exam with routine gynecological exam Routine gynecological examination Encounter for screening mammogram for malignant neoplasm of breast Osteoporosis, post-menopausal Senile osteoporosis documented in this encounter Care Teams Team MemberRelationshipSpecialtyStart DateEnd Date Sandeep Lundberg MD [address] [place] [address] PCP - GeneralFamily Knzhjgul94/9/23documented as of this encounter
--- OUTSIDE RECORDS SUMMARY | 2025-06-03 07:46 | XMS_ITS | Encounter Summary ---
Author Organization [facility] Address [address] [place] [address] Care Team Providers Care Caddy Master Name Role Phone Sandeep Lundberg MD Primary Care Provider [phone] Reason for Referral * GI Procedure (Routine) - AuthorizedSpecialtyDiagnoses / ProceduresReferred By ContactReferred To ContactGastroenterology Diagnoses Gallbladder anomaly Gallbladder & bile duct stone, nonacute cholecystitis & obstruction Procedures ERCP NM ERCP DX COLLECTION SPECIMEN BRUSHING/[place] [address] [place] [address] Phone: tel: fax: [facility] [address] [place] [phone] Phone: tel: fax: Referral IDStatusReasonStart DateExpiration DateVisits RequestedVisits [id number]/10/202511/ Reason for Visit * GI Procedure (Routine) - AuthorizedSpecialtyDiagnoses / ProceduresReferred By ContactReferred To ContactGastroenterology Diagnoses Gallbladder anomaly Gallbladder & bile duct stone, nonacute cholecystitis & obstruction Procedures ERCP NM ERCP DX COLLECTION SPECIMEN BRUSHING/[place] [address] [place] [address] Phone: tel: fax: [facility] [address] [place] [phone] Phone: tel: fax: Referral IDStatusRerudolphStart DateExpiration DateVisits RequestedVisits [id number]/[id number]/ Encounter Details DateTypeDepartmentCare Team (Latest Contact Info)Iafezoopsmd80/19/2025 7:46 AM EST - 06/03/2025 10:27 AM ESTHospital Encounter [facility] [address] [place] [address] Chantell Lopez MD [address] [facility] [place] [address] Angel Villalpando CAA Gerken, Sarah, MD [address] [place] [address] Gallbladder anomaly; Gallbladder & bile duct stone, nonacute cholecystitis & obstruction Discharge Disposition: Home or Self Care () Social History Tobacco UseTypesPacks/DayYears UsedDateSmoking Tobacco: NeverSmokeless Tobacco: NeverCommentsUnknownSex and Gender InformationValueDate RecordedSex Assigned at NagiqLxjbay40/19/2025 7:46 AM ESTLegal XedUnburr45/27/2025 5:11 PM EDTGender HtfwfspeDbqtjq65/19/2025 7:46 AM ESTSexual OrientationHeterosexual or Whdwihkj48/19/2025 7:46 AM ESTdocumented as of this encounter Last Filed Vital Signs Vital SignReadingTime TakenCommentsBlood Ttboekvs639/6906/03/2025 8:05 AM EST Kkmat905406/03/2025 8:05 AM OPVTwtfqdzssle41.1 ??C (97 ??F)06/03/2025 8:05 AM EST Respiratory Isqr864908/03/2024 8:05 AM ESTOxygen Poljtnwmhb530%06/03/2025 8:05 AM ESTInhaled Oxygen Concentration--Uqxlfl80.4 kg (181 lb 10.5 oz)06/03/2025 8:05 AM HOWZalyjr239.6 cm (5' 6 )06/03/2025 8:05 AM ESTBody Mass Index29.32108/03/2024 8:05 AM ESTdocumented in this encounter Functional Status * QuestionAnswerDate of PqupieqlpkNvdhbfOS665/6906/03/2025 8:05 AM Dave Fishman RNPulse7206/03/2025 8:05 AM Dave Fishman RNHeart Rate Source Mwugppm8006/03/2025 8:05 AM Dave Fishman RNPatient PositionSitting 06/03/2025 8:05 AM Dave Fishman RN * Pain Assessment TimerQuestionAnswerDate of AssessmentAuthorRestart Pain Assessment AdzzhNei25/19/2025 8:05 AM Dave Fishman RN * Pain AssessmentQuestionAnswerDate of AssessmentAuthorPain AssessmentNo/denies pain06/03/2025 8:05 AM Dave Fishman RN * Audit Alcohol ScreeningQuestionAnswerDate of AssessmentAuthorHow often do you have a drink containing alcohol? 8:08 AM Dave Fishman RNHow many standard drinks containing alcohol do you have on a typical day?No 06/03/2025 8:08 AM Dave Fishman RNHow often do you have six or more drinks on one occasion? 8:08 AM Dave Fishman RNAudit-C Score 8:08 AM Dave Fishman RN * Head, Ears, Eyes, Nose, and Throat (HEENT)QuestionAnswerDate of Assessment AuthorHead, Ears, Eyes, Nose, and Throat (WDL)X108/03/2024 8:05 AM Dave Fishman RNR EyeCorrective evjhdj5006/03/2025 8:05 AM Dave Fishman RNL EyeCorrective ivmfwe6206/03/2025 8:05 AM Dave Fishman RN * QuestionAnswerDate of AssessmentAuthorHead of Bed ElevatedHOB 30108/03/2024 8:05 AM Dave Fishman RN * Vital SignsQuestionAnswerDate of QbowhrtbegJnkglvNE812/6906/03/2025 8:05 AM Dave Fishman, XLLvan5115/19/2025 8:05 AM Dave Fishman, RNTemp src Nlfvzqpd10/19/2025 8:05 AM Dave Fishman, PEAhxtn9510/19/2025 8:05 AM EST Dave Darnell, JECxhu2371/19/2025 8:05 AM Dave Fishman, BMJhA9266 06/03/2025 8:05 AM Dave Fishman, RNHeart Rate XrimasXmenziy44/19/2025 8:05 AM Dave Fishman, RNBP LocationLeft arm06/03/2025 8:05 AM Dave Fishman, RNBP XxninsSillvjpqg62/19/2025 8:05 AM Dave Fishman, RNPatient AfeqcwbxSywpzob90/19/2025 8:05 AM Dave Fishman, RN * GastrointestinalQuestionAnswerDate of AssessmentAuthorGastrointestinal (WDL) WDL108/03/2024 8:05 AM Dave Fishman RN * Peripheral VascularQuestionAnswerDate of AssessmentAuthorPeripheral Vascular (WDL)WDL108/03/2024 8:05 AM Dave Fishman RN * MusculoskeletalQuestionAnswerDate of AssessmentAuthorMusculoskeletal (WDL)WDL 06/03/2025 8:05 AM Dave Fishman RN * RespiratoryQuestionAnswerDate of AssessmentAuthorRespiratory (WDL)WDL 06/03/2025 8:05 AM Dave Fishman RN * GenitourinaryQuestionAnswerDate of AssessmentAuthorGenitourinary (WDL)L 06/03/2025 8:05 AM Dave Fishman RN * QuestionAnswerDate of YvstjklfvuOyajptEUTT60321/19/2025 10:27 AM ESTInterface, Device In * Pain AssessmentQuestionAnswerDate of AssessmentAuthorPain AssessmentNo/denies pain06/03/2025 8:05 AM Dave Fishman RN * [place] Suicide Severity Rating ScaleQuestionAnswerDate of AssessmentAuthor1. Have you wished you were or wished you could go to sleep and not wake up? No06/03/2025 8:05 AM Dave Fishman RN2. Have you actually had any thoughts of killing yourself?No06/03/2025 8:05 AM Dave Fishman RN6. Have you ever done anything, started to do anything, or prepared to do anything to end your life?No06/03/2025 8:05 AM Dave Fishman RN * Audit Alcohol ScreeningQuestionAnswerDate of AssessmentAuthorHow often do you have a drink containing alcohol? 8:08 AM Dave Fishman RNHow many standard drinks containing alcohol do you have on a typical day?No 06/03/2025 8:08 AM Dave Fishman RNHow often do you have six or more drinks on one occasion? 8:08 AM Dave Fishman RNAudit-C Score 8:08 AM Dave Fishman RN * Risk of SuicideAnswerDate of AssessmentAuthorNo Risk06/03/2025 8:05 AM Dave Davis RN * QuestionAnswerDate of AssessmentAuthorSkin ColorAppropriate for race06/03/2025 8:05 AM Dave Fishman RNSkin Condition/TempWarm;Dry06/03/2025 8:05 AM Dave Fishman RN * Modified AldreteQuestionAnswerDate of UdaxpxtdjeAfnujyBnkolumq272/19/2025 8:05 AM Dave Fishman RNRespiration 8:05 AM Dave Fishman RN Yzscabppfmx008/19/2025 8:05 AM Dave Fishman RNConsciousness 8:05 AM Dave Fishman RNOxygen Aptjfneyyz408/19/2025 8:05 AM Dave Fishman RNModified Kirsten Adjfw5131 8:05 AM Dave Fishman RN documented as of this encounter Mental Status * Modified AldreteQuestionAnswerEntry MjtpZkluybXxesfmlp366/19/2025 8:05 AM Dave Davis RNRespiration 8:05 AM Dave Fishman RN Qxjlvzpzlbs020/19/2025 8:05 AM Dave Fishman RNConsciousness 8:05 AM Dave Fishman RNOxygen Dhrnwgqngm164/19/2025 8:05 AM Dave Fishman RNModified Kirsten Gyxvq3404 8:05 AM Dave Fishman RN documented in this encounter Discharge Instructions * Attachments The following attachments cannot be sent through Care Everywhere. * General Anesthesia Adult Care After (Chilean) documented in this encounter Medications at Time of Discharge MedicationSigDispense QuantityRefillsLast FilledStart DateEnd Date FLUoxetine (PROzac) 10 mg capsule Take 10 mg by mouth in the morning.06/04/2024 levothyroxine (Synthroid, Levoxyl) 125 mcg tablet TAKE 1 TABLET BY MOUTH EVERY DAY; Duration: 90 days05/11/2023 lisinopril 10 mg tablet 10 mg 1 (one) time each day. modafinil (Provigil) 200 mg tablet take 1 tablet by mouth in the morning for 30 days simvastatin (Zocor) 20 mg tablet 1 (one) time each day at the same time.05/01/2025documented as of this encounter H&P Notes * Dmitry aPlumbo MD - 06/03/2025 9:30 AM EST Gastroenterology History and Physical Note IDENTIFYING DATA PATIENT: Leida Laird HISTORY OF PRESENT ILLNESS Leida Laird is a 60-year-old female referred for evaluation of suspected choledocholithiasis. She recently underwent a right upper quadrant ultrasound on 05/08/2025 as part of a workup for mildly elevated aminotransferases. The ultrasound demonstrated a prominent common bile duct measuring approximately 9- 10 mm with an apparent common bile duct stone. She is status post cholecystectomy earlierin 2024. The patient continues to experience intermittent upper abdominal pain, typically in the epigastric and right upper quadrant regions, particularly after ingestion of fatty foods. She denies jaundice, pruritus, fevers, chills, nausea, vomiting, or changes in stool color. PAST MEDICAL, SURGICAL, FAMILY, and SOCIAL HISTORY Past Medical History: Medical History[1] Past Surgical History: Surgical History[2] Family History: Family History[3] Social History: Social History[4] Allergies: Allergies[5] Home Medications: Prior to Admission medications Medication Sig Start Date End Date Taking? Authorizing Provider FLUoxetine (PROzac) 10 mg capsule Take 10 mg by mouth in the morning. 06/04/24 Yes Historical Provider, levothyroxine (Synthroid, Levoxyl) 125 mcg tablet TAKE 1 TABLET BY MOUTH EVERY DAY; Duration: 90 days 05/11/23 Yes Historical Provider, lisinopril 10 mg tablet 10 mg 1 (one) time each day. Yes Historical Provider, modafinil (Provigil) 200 mg tablet take 1 tablet by mouth in the morning for 30 days Yes HistoricalProvider, simvastatin (Zocor) 20 mg tablet 1 (one) time each day at the same time. 05/01/25 Yes Historical Provider, REVIEW OF SYSTEMS See HPI, otherwise ROS negative as below Review of Systems Constitutional: Negative. Respiratory: Negative. Cardiovascular: Negative. OBJECTIVE DATA Vitals: BP 126/69 (BP Location: Left arm, Patient Position: Sitting) Pulse 72 Temp 36.1 ??C (97 ??F) (Temporal) Resp 18 Ht 1.676 m (5' 6 ) Wt 82.4 kg (181 lb 10.5 oz) SpO2 100% BMI 29.32 kg/m?? Physical Exam HENT: Head: Normocephalic and atraumatic. Cardiovascular: Rate and Rhythm: Normal rate. Pulmonary: Effort: Pulmonary effort is normal. Abdominal: Palpations: Abdomen is soft. Tenderness: There is no abdominal tenderness. Skin: General: Skin is warm and dry. Neurological: Mental Status: She is alert. Mental status is at baseline. LABS CBC: No results found for: WBC , RBC , HGB , HCT , MCV , RDW , PLT PT/INR No results found for: PT , INR BMP: No results found for: NA , K , CL , BUN , CREATININE , EGFR , GLU LFTs: No results found for: BILITOT , BILIDIR , ALKPHOS , GGT , AST , ALT , ALBUMIN , PROT B12/Folate/Iron studies: No results found for: RGJADOUR16 , FOLATE , IRON , TIBC , UIBC , IRONSAT , FERRITIN ASSESSMENT AND PLAN Choledocholithiasis RUQ ultrasound shows CBD 9-10 mm with stone visualized. History of post-cholecystectomy biliary-type pain triggered by fatty meals supports biliary obstruction. PLAN ERCP [1] Past Medical History: Diagnosis Date Anxiety Cholelithiasis Hyperlipidemia Hypertension Hypothyroidism Liver disease [2] Past Surgical History: Procedure Laterality Date SECTION, LOW TRANSVERSE CHOLECYSTECTOMY COLON SURGERY LUNG LOBECTOMY SEPTOPLASTY [3] No family history on file. [4] Social History Tobacco Use Smoking status: Never Smokeless tobacco: Never Vaping Use Vaping status: Never Used Substance Use Topics Drug use: Never [5] Allergies Allergen Reactions Penicillin Anaphylaxis Codeine Anxiety, GI intolerance and Rash Cosigned by Chantell Lopez MD at 06/03/2025 10:21 AM EST Associated attestation - Chantell Lopez MD - 06/03/2025 10:21 AM EST The patient was seen and examined. Agree with assessment and plan. Choledocholithiasis RUQ ultrasound shows CBD 9-10 mm with stone visualized. History of post-cholecystectomy biliary-type pain triggered by fatty meals supports biliary obstruction. PLAN ERCP documented in this encounter Nursing Notes * Jacqueline Conrad RN - 06/03/2025 10:48 AM EST Grounding pad placed right posterior thigh documented in this encounter Plan of Treatment Not on file documented as of this encounter Procedures Procedure NamePriorityDate/TimeAssociated DiagnosisCommentsENDOSCOPIC RETROGRADE NWGXVTVSKBSKRYEJALXLRUWLDzaexor32/19/2025 11:25 AM EST Gallbladder anomaly Gallbladder & bile duct stone, nonacute cholecystitis & obstruction POCT GLUCOSE METER UNSOLICITED HLGYXEKApcxjov18/19/2025 8:12 AM EST documented in this encounter Results * ERCP (06/03/2025 11:25 AM EST)Anatomical RegionLateralityModalityEndoscopy Specimen (Source)Anatomical Location / LateralityCollection Method / Volume Collection TimeReceived Time Narrative 06/03/2025 6:31 PM EST Endoscopic Retrograde Cholangiopancreatography (ERCP) Procedure Note Procedure: ??ERCP with stone removal and sphincterotomy Indications: ?? Suspected choledocholithiasis, RUQ ultrasound shows CBD 9-10 mm with stone visualized. History of post-cholecystectomy biliary-type pain triggered by fatty meals. 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 ?? Risks of pancreatitis, infection, perforation, hemorrhage, adverse drug reaction and aspiration were discussed. ??The patient was placed in the left lateral decubitus position. ??The patient was monitored continuously with ECG tracing, pulse oximetry, blood pressure monitoring, and direct observations. ?? The duodenoscope was inserted into the mouth and advanced to the third portion of the duodenum; findings and interventions are described below. ?? The patient tolerated the procedure well, and there were no immediate complications. She was taken to the recovery area in stable condition. Findings: The examination of the major papilla was unremarkable. Using an Rx-44 sphincterotome preloaded with a 0.035-inch guidewire, the common bile duct was selectively cannulated. A biliary sphincterotomy was performed, and the sphincterotome was removed over the guidewire. A 9-12 mm injecting below retrieval balloon catheter was advanced over the guidewire into the common bile duct and used for multiple balloon sweeps, which retrieved several small stone fragments. After multiple balloon sweep, complete clearance of the common bile duct was achieved and excellent biliary drainage was confirmed fluoroscopically. The procedure was performed under fluoroscopic guidance, and I personally interpreted the fluoroscopic images. The patient tolerated the procedure well without immediate complications and was transferred to the recovery unit in stable condition. Specimens: No specimens collected ? Complications: ??None Estimated blood loss: Minimal ? Disposition: Home ? Condition: stable Impression: ?? Multiple small stone fragments were removed with balloon sweep after biliary sphincterotomy was performed. Recommendations: Observe for post-ERCP complications (pain, pancreatitis, or bleeding). Clear liquid diet today, then advance diet as tolerated. Follow liver function tests. Attending Attestation: I was present and scrubbed for the maldonado portions of the procedure. Authorizing ProviderResult TypeResult StatusSandeep Lundberg MDENDOSCOPY PROCEDURE ORDERABLESFinal Result * POCT glucose meter (06/03/2025 8:12 AM EST)ComponentValueRef RangeTest Method Analysis TimePerformed AtPathologist SignatureGlucose [id number] - 105 mg/dL 06/03/2025 8:23 AM [facility] ([facility])Comment:aclementSpecimen (Source)Anatomical Location / LateralityCollection Method / VolumeCollection TimeReceived TimeBloodCapillary blood specimen / Lcafyio7406/03/2025 8:12 AM EST 06/03/2025 8:23 AM EST Narrative [facility] ([facility]) - 06/03/2025 8:23 AM EST Waived Testing in the ED is performed under the ED CLIA certificate #[id number]. Authorizing ProviderResult TypeResult StatusChantell LOPEZ BLOOD ORDERABLES Final ResultPerforming OrganizationAddressCity/State/ZIP CodePhone Number [facility] ([facility]) [address] [place] [address] documented in this encounter Visit Diagnoses Diagnosis Gallbladder anomaly Gallbladder & bile duct stone, nonacute cholecystitis & obstruction Calculus of gallbladder and bile duct with other cholecystitis, with obstruction documented in this encounter Administered Medications Medication OrderMAR ActionAction DateDoseRateSite indomethacin (Indocin) suppository As needed, Starting on Sun06/03/25 at 1102, Intraprocedure Given06/03/2025 11:02 AM EST50 mg iohexol (OMNIPaque) 300 mg iodine/mL injection As needed, Starting on Sun06/03/25 at 1046, Intraprocedure Given06/03/2025 10:46 AM EST30 mLRight Hand lactated Ringer's infusion 1 mL/hr, intravenous, Continuous, Starting on Sun06/03/25 at 0815, For 99 days, Preprocedure, Indication: preop Given06/03/2025 11:16 AM IKO625 mJEmwnw9906/03/2025 10:41 AM ASP701 mLContinued by Tzsbtynhuj76/19/2025 10:24 AM EST1 mL/hr1 mL/hrdocumented in this encounter Care Teams Team MemberRelationshipSpecialtyStart [place] [address] [place] [phone] PCP - GeneralFamily Fpzndvgj24/27/25documented as of this encounter
--- OUTSIDE RECORDS SUMMARY | 2025-06-03 10:24 | XMS_ITS | Encounter Summary ---
Author Organization [facility] Address [address] [place] [address] Care Team Providers Care Respiratory Tech Name Role Phone Sandeep Lundberg MD Primary Care Provider [phone] Encounter Details DateTypeDepartmentCare Team (Latest Contact Info)Qzywddaxbat81/19/2025 10:24 AM ESTAnesthesia Event [facility] [address] [place] [phone] Isabella Yeboah MD [address] [facility] 2 [place] [address] Benji Haddad MD [address] [place] [address] Anesthesia Record Procedure NameResponsible AnesthesiologistAnesthesia Start TimeAnesthesia Stop TimeENDOSCOPIC RETROGRADE CHOLANGIOPANCREATOGRAPHYIsabella Yeboah MD06/03/25 1024 06/03/25 8179EdcgBwnyDgwuqMfosbpo81/19/694015947190Om Pdfhe0417Gy Start Kmxj9883 An InductionThe patient was reevaluated immediately before moderate or deep sedation use and before anesthesia induction.1030An Mmafufaboi7194Ilkcuzjxxu Eiwvz6159Curt OutTime out completed (confirmed patient ID, surgeon, procedure, and operative site).1124An Lytvtaifqt7104ur stop yodn5207Zufcpzo to ReceivingI completed my handoff to the receiving clinician during which we: 1. Identified the patient 2. Identified the responsible provider 3. Reviewed the pertinent medical history 4. Discussed the surgicalcourse 5. Reviewed intra-op anesthesia management and issues during anesthesia 6. Set expectations for post-procedure period 7. Allowed opportunity for questions and acknowledgement of understanding.1130An Stop* NameTotalmidazolam (Versed) 1mg/mL injection2 mg fentaNYL (SUBLIMAZE) locgshikz689 mcglidocaine (Xylocaine) 20 mg/ml injection 2 %60 mgpropofol 10 mg/mL200 mgsuccinylcholine 20 mg/mL120 mgdexAMETHasone (Decadron) 4 MG/ML injection8 mgondansetron 2 mg/mL4 mgePHEDrine 50 mg/ml wykyavyec62 mgphenylephrine (Madi-Synephrine) 10 mg/ml hkxkshofq314 mcglactated Ringer's inolqmsk590.1 mLlidocaine (LTA Kit) for intubation1 kit * Agents Name O2 N2O Air Sevoflurane Inspired Sevoflurane N2O Inspired N2O Inspired O2 Setting * Blood No blood administrations on file. TypeDetailsPlacementRemovalPeripheral IVPlacement Date: 06/03/25; Placement Time: 0810; Catheter Size: 20 G; Orientation: Posterior, Right;Location: Hand; Site Prep: Chlorhexidine ; Local Anesth: None; Technique: Anatomical landmarks; Inserted by: oscar lauren; Insertion Attempts: 1; Difficult Venous Access? No; Patient Tolerance: Tolerated well; Removal Date: 06/03/25; Removal Time: 0810 by Dave Darnell RN06/03/25 1230 by Tiff Voss RNETTPlacement Date: 06/03/25; Placement Time: 1030 (created via procedure documentation); Mask Ventilation: 1; Technique: Direct laryngoscopy; Type: ETT - single; Single Lumen Tube Size: 7.5 mm; Cuffed: Yes; Laryngoscope: Melany; Blade Size: 4; Location: Oral; Grade View: Grade I; Insertion Attempts: 1; Placement Verification: Auscultation, Capnometry; Removal Date: 06/03/25; Removal Time: 1030 by GRACIELA Rodríguez06/03/25 1124 by GRACIELA Rodríguez documented in this encounter Social History Tobacco UseTypesPacks/DayYears UsedDateSmoking Tobacco: NeverSmokeless Tobacco: NeverCommentsUnknownSex and Gender InformationValueDate RecordedSex Assigned at ZqippTalikr37/19/2025 7:46 AM ESTLegal SnqPkxrly89/27/2025 5:11 PM EDTGender XqlfnrkaEurtps11/19/2025 7:46 AM ESTSexual OrientationHeterosexual or Yqoqccvz79/19/2025 7:46 AM ESTdocumented as of this encounter Functional Status * QuestionAnswerDate of CtfyyytawfYyoykcWZ175/8306/03/2025 12:15 PM Tiff Mei RNPulse7206/03/2025 12:15 PM Tiff Mei RNHeart Rate Source Bvkmaxu9906/03/2025 8:05 AM Dave Fishman RNPatient PositionSitting 06/03/2025 8:05 AM Dave Fishman RN * Pain Assessment TimerQuestionAnswerDate of AssessmentAuthorRestart Pain Assessment ZvfzbHcp75/19/2025 12:15 PM Tiff Mei RN * Pain AssessmentQuestionAnswerDate of AssessmentAuthorPain AssessmentNo/denies pain06/03/2025 12:15 PM Tiff Mei RN * Audit Alcohol ScreeningQuestionAnswerDate of AssessmentAuthorHow [...] Assessment AuthorHead, Ears, Eyes, Nose, and Throat (WDL)WDL108/03/2024 12:15 PM Tiff Mei RNR EyeCorrective zjtwet2606/03/2025 8:05 AM Dave Fishman RNL Eye Corrective ezfkab2206/03/2025 8:05 AM Dave Fishman RN * QuestionAnswerDate of AssessmentAuthorHead of Bed [place]vatedH[place] [address]/03/2024 8:05 AM Dave Fishman RN * Vital SignsQuestionAnswerDate of EvvqatooyjUxqttpGW844/8306/03/2025 12:15 PM Tiff Mei RNTemp97.311 11:30 AM Tiff Mei RNTemp src Qtzcuwvr66/19/2025 11:30 AM Tiff Mei VIDflar0124/19/2025 12:15 PM Tiff Crabtree ZXUnnp9427/19/2025 12:15 PM Tiff Mei, FNEyL0945 06/03/2025 12:15 PM Tiff Mei RNHeart Rate OiqpaaFocimxw44/19/2025 8:05 AM Dave Fishman, RONALDBP LocationLeft arm06/03/2025 8:05 AM Dave Fishman RNBP SiorgdBtfrzztoq96/19/2025 8:05 AM Dave Fishman RNMAP (mmHg)9406/03/2025 12:00 PM Tiff Mei RNPulse rate from Plethysmogram (bpm)6606/03/2025 12:15 PM Tiff Mei RNPatient PositionSitting 06/03/2025 8:05 AM Dave Fishman RN * QuestionAnswerDate of AssessmentAuthorLevel of AbhgogeeihatlIbxcr34/19/2025 12:15 PM Tiff Mei RNOrientation LevelOriented X4108/03/2024 12:15 PM Tiff Mei RNCognitionFollows tdkvicov67/19/2025 12:15 PM Tiff Mei RN * GastrointestinalQuestionAnswerDate of AssessmentAuthorGastrointestinal (WDL) WDL108/03/2024 12:15 PM Tiff Mei RN * Peripheral VascularQuestionAnswerDate of AssessmentAuthorPeripheral Vascular (WDL)WDL108/03/2024 12:15 PM Tiff Mei RN * MusculoskeletalQuestionAnswerDate of AssessmentAuthorMusculoskeletal (WDL)WDL 06/03/2025 12:15 PM Tiff Mei RN * RespiratoryQuestionAnswerDate of AssessmentAuthorRespiratory (WDL)WDL 06/03/2025 12:15 PM Tiff Mei RN * GenitourinaryQuestionAnswerDate of AssessmentAuthorGenitourinary (WDL)WDL 06/03/2025 12:15 PM Tiff Mei RN * QuestionAnswerDate of BjxiymjjjhYpdbotVTPO9666/19/2025 11:30 AM ESTInterface, Device In * Pain AssessmentQuestionAnswerDate of AssessmentAuthorPain AssessmentNo/denies pain06/03/2025 12:15 PM Tiff Mei RN * Willis Suicide Severity Rating ScaleQuestionAnswerDate of AssessmentAuthor1. Have [...] Dave Fishman RN * Modified AldreteQuestionAnswerDate of KzrdqxokuyYquqjkVxlbizfk267/19/2025 12:15 PM Tiff Mei RNRespiration 12:15 PM Tiff Mei RNCirculation 12:15 PM Tiff Mei RNConsciousness 12:15 PM Tiff Mei RNOxygen Fzdvsxekdq359/19/2025 12:15 PM Tiff Mei RN * Modified Kirsten ScoreAnswerDate of DfkidmppxkQwdeor7641/19/2025 12:15 PM Tiff Crabtree RN documented as of this encounter Mental Status * Modified AldreteQuestionAnswerEntry TjarYaqcdcOnuezqmz600/19/2025 12:15 PM Tiff Crabtree AUJibdebwemsf301/19/2025 12:15 PM Tiff Mei RN Hdejboareup715/19/2025 12:15 PM Tiff Mei RNConsciousness 12:15 PM Tiff Mei RNOxygen Rwahhazdbs264/19/2025 12:15 PM Tiff Mei RN * Modified Kirsten ScoreAnswerEntry WuloFwpbgl4032/19/2025 12:15 PM Tiff Mei RN documented in this encounter Procedure Notes * GRACIELA Rodríguez - 06/03/2025 10:40 AM ESTAssociated Order(s): Airway Airway Date/Time: 06/03/2025 10:30 AM Reason: elective General Information and Staff Patient location during procedure: OR Anesthesiologist: Isabella Yeboah MD Resident/JAIRO/CAA: GRACIELA Rodríguez Performed: resident/DEPALLETIZER OPERATOR/GRACIELA Patient Condition Indications for airway management: anesthesia Sedation level: deep Final Airway Details Preoxygenated: yes Final airway type: endotracheal airway Successful airway: ETT Cuffed: yes Successful intubation technique: direct laryngoscopy Adjuncts used in placement: intubating stylet Endotracheal tube insertion site: oral Blade: Melany Blade size: #4 ETT size (mm): 7.5 Cormack-Lehane Classification: grade I - full view of glottis Placement verified by: chest auscultation and capnometry Measured from: lips ETT to lips (cm): 22 Number of attempts at approach: 1 Number of other approaches attempted: 0 documented in this encounter Plan of Treatment Not on file documented as of this encounter Procedures Procedure NamePriorityDate/TimeAssociated DiagnosisCommentsPR AN ELECTIVE ENDOTRACHEAL CQNEBKRiktify39/19/2025 10:30 AM EST documented in this encounter Results * MA AN ELECTIVE ENDOTRACHEAL AIRWAY (06/03/2025 10:30 AM EST) Angel Westfall CAA - 06/03/2025 10:30 AM EST GRACIELA Rodríguez 06/03/2025 10:40 AM Airway Date/Time: 06/03/2025 10:30 AM Reason: elective General Information and Staff Patient location during procedure: OR Anesthesiologist: Isabella Yeboah MD Resident/DEPALLETIZER OPERATOR/CAA: GRACIELA Rodríguez Performed: resident/DEPALLETIZER OPERATOR/GRACIELA Patient Condition Indications for airway management: anesthesia Sedation level: deep Final Airway Details Preoxygenated: yes Final airway type: endotracheal airway Successful airway: ETT Cuffed: yes Successful intubation technique: direct laryngoscopy Adjuncts used in placement: intubating stylet Endotracheal tube insertion site: oral Blade: Melany Blade size: #4 ETT size (mm): 7.5 Cormack-Lehane Classification: grade I - full view of glottis Placement verified by: chest auscultation and capnometry Measured from: lips ETT to lips (cm): 22 Number of attempts at approach: 1 Number of other approaches attempted: 0 Authorizing ProviderResult TypeResult StatusSatorey Yeboah MDANESTHESIA ORDERABLES Final Result documented in this encounter Visit Diagnoses * Anesthesia Postprocedure Evaluation - Isabella Yeboah MD - 06/03/2025 12:41 PM EST Patient: Leida Laird Procedure Summary Date: 06/03/25 Room / Location: [facility] Endoscopy Anesthesia Start: 1024 Anesthesia Stop: 1130 Procedure: ENDOSCOPIC RETROGRADE CHOLANGIOPANCREATOGRAPHY Diagnosis: Gallbladder anomaly Gallbladder & bile duct stone, nonacute cholecystitis & obstruction Scheduled Providers: Chantell Lopez MD; GRACIELA Rodríguez; Isabella Yeboah MD Responsible Provider: Isabella Yeboah MD Anesthesia Type: general ASA Status: 2 Anesthesia Type: general Vitals Value Taken Time BP 123/85 06/03/25 12:00 Temp 36.3 ??C (97.3 ??F) 06/03/25 11:30 Pulse 77 06/03/25 12:00 Resp 16 06/03/25 12:00 SpO2 99 % 06/03/25 12:00 Anesthesia Post Evaluation Patient location during evaluation: PACU Patient participation: complete - patient participated Level of consciousness: awake Pain score: 0 Pain management: adequate Airway patency: patent Cardiovascular status: acceptable Respiratory status: acceptable Patient is hemodynamically stable and is able to be discharged from PACU per anesthesia protocol. No notable events documented. * Anesthesia Preprocedure Evaluation - Isabella Yeboah MD - 06/03/2025 8:27 AM EST Patient: Leida Laird Procedure Information Date/Time: 06/03/25 09 Scheduled providers: Chantell Lopez MD; GRACIELA Rodríguez; Isabella Yeboah MD Procedure: ENDOSCOPIC RETROGRADE CHOLANGIOPANCREATOGRAPHY Location: [facility] Endoscopy Medical History[1] Relevant Problems No relevant active problems Clinical information reviewed: Tobacco Allergies Meds Med Hx Surg Hx OB Status Fam Hx Soc Hx Physical Exam Airway Mallampati: II TM distance: >3 FB Neck ROM: full Cardiovascular - normal exam Dental - normal exam Pulmonary - normal exam Neurological Abdominal - normal exam Anesthesia Plan ASA 2 general The patient is not a current smoker. Patient was not previously instructed to abstain from smoking on day of procedure. Patient did not smoke on day of procedure. Education provided regarding risk of obstructive sleep apnea. intravenous induction Anesthetic plan and risks discussed with patient. Plan discussed with CAA. Additional Equipment Requests [1] Past Medical History: Diagnosis Date ??? Anxiety ??? Cholelithiasis ??? Hyperlipidemia ??? Hypertension ??? Hypothyroidism ??? Liver disease documented in this encounter Administered Medications Medication OrderMAR ActionAction DateDoseRateSite dexAMETHasone (Decadron) injection intravenous, As needed, Starting on Sun06/03/25 at 1041, Anesthesia Intraprocedure Given06/03/2025 10:41 AM EST8 mg ePHEDrine injection intravenous, As needed, Starting on Sun06/03/25 at 1054, Anesthesia Intraprocedure Given06/03/2025 10:55 AM EST15 ijXfwzx6606/03/2025 10:54 AM EST10 mg fentaNYL (Sublimaze) injection intravenous, As needed, Starting on Sun06/03/25 at 1028, Anesthesia Intraprocedure Given06/03/2025 10:58 AM EST50 cjsImobi90/19/2025 10:28 AM EST50 mcg lactated Ringer's infusion 1 mL/hr, intravenous, Continuous, Starting on Sun06/03/25 at 0815, For 99 days, Preprocedure, Indication: preop Given06/03/2025 11:16 AM SHK755 xHJizej4206/03/2025 10:41 AM SBS325 mLContinued by Jdgzawqfcl46/19/2025 10:24 AM EST1 mL/hr1 mL/hr lidocaine HCl (LTA Kit) 4 % vial intratracheal, As needed, Starting on Sun06/03/25 at 1029, Anesthesia Intraprocedure Given06/03/2025 10:29 AM EST1 kit lidocaine HCl (Xylocaine) 20 mg/mL (2 %) injection intravenous, As needed, Starting on Sun06/03/25 at 1028, Anesthesia Intraprocedure Given06/03/2025 10:28 AM EST60 mg midazolam (Versed) injection intravenous, As needed, Starting on Sun06/03/25 at 1021, Anesthesia Intraprocedure Given06/03/2025 10:21 AM EST2 mg ondansetron (Zofran) injection intravenous, As needed, Starting on Sun06/03/25 at 1113, Anesthesia Intraprocedure Given06/03/2025 11:13 AM EST4 mg phenylephrine (Madi-Synephrine) injection intravenous, As needed, Starting on Sun06/03/25 at 1055, Anesthesia Intraprocedure Given06/03/2025 10:55 AM CKW258 mcg propofol (Diprivan) 10 mg/mL infusion intravenous, As needed, Starting on Sun06/03/25 at 1028, Anesthesia Intraprocedure Given06/03/2025 10:28 AM AZD082 mg succinylcholine (Anectine) injection intravenous, As needed, Starting on Sun06/03/25 at 1028, Anesthesia Intraprocedure Given06/03/2025 10:28 AM BTS412 mgdocumented in this encounter Care Teams Team MemberRelationshipSpecialtyStart [place] [address] [place], [place] [address] [place] [address] PCP - GeneralFamily Qafrpxcp88/27/25documented as of this encounter
--- OUTSIDE RECORDS SUMMARY | 2025-06-03 10:28 | XMS_ITS | Encounter Summary ---
Author Organization [facility] Address [address] [place] [address] Care Team Providers Care Music Video Director Name Role Phone Sandeep Lundberg MD Primary Care Provider [phone] Encounter Details DateTypeDepartmentCare Team (Latest Contact Info)Dmwivkwxkta79/19/2025 10:28 AM EST - 06/03/2025 11:59 PM ESTHospital Encounter [facility] [address] [place] [phone] Gallbladder anomaly; Gallbladder & bile duct stone, nonacute cholecystitis & obstruction Discharge Disposition: Home or Self Care () Social History Tobacco UseTypesPacks/DayYears UsedDateSmoking Tobacco: NeverSmokeless Tobacco: NeverCommentsUnknownSex and Gender InformationValueDate RecordedSex Assigned at YbxjrJdknqm23/19/2025 7:46 AM ESTLegal AmyUlqjus81/27/2025 5:11 PM EDTGender SmcrjtfyKaqohi96/19/2025 7:46 AM ESTSexual OrientationHeterosexual or Dustpxbh51/19/2025 7:46 AM ESTdocumented as of this encounter Functional Status * QuestionAnswerDate of QfjpxnoecfJhjnzrGE539/8306/03/2025 12:15 PM Tiff Mei RNPulse7206/03/2025 12:15 PM Tiff Mei RNHeart Rate Source Wdqlunu9206/03/2025 8:05 AM Dave Fishman RNPatient PositionSitting 06/03/2025 8:05 AM Dave Fishman RN * Pain Assessment TimerQuestionAnswerDate of AssessmentAuthorRestart Pain Assessment OystvUtq12/19/2025 12:15 PM Tiff Mei RN * Pain [...] (WDL)WDL108/03/2024 12:15 PM Tiff Mei RNR EyeCorrective rxxfqr1906/03/2025 8:05 AM Dave Fishman RNL Eye Corrective kdanbr0406/03/2025 8:05 AM Dave Fishman RN * QuestionAnswerDate of AssessmentAuthorHead of [facility] [address]/03/2024 8:05 AM Dave Fishman RN * Vital SignsQuestionAnswerDate of LvsznltmgyLbkfthPK169/8306/03/2025 12:15 PM Tiff Mei RNTemp97.311 11:30 AM Tiff Mei RNTemp src Zljngpik00/19/2025 11:30 AM Tiff Mei GTHgufp2485/19/2025 12:15 PM Tiff Crabtree RNResp15108/03/2024 12:15 PM Tiff Mei LCMsZ1926 06/03/2025 12:15 PM Tiff Mei RNHeart Rate QkeombFshpsnw22/19/2025 8:05 AM Dave Fishman RNBP LocationLeft arm06/03/2025 8:05 AM Dave Fishman RNBP IwngcaDrcslbcda39/19/2025 8:05 AM Dave Fishman RNMAP (mmHg)9406/03/2025 12:00 PM Tiff Mei RNPulse rate from Plethysmogram (bpm)6606/03/2025 12:15 PM Tiff Mei RNPatient PositionSitting 06/03/2025 8:05 AM Dave Fishman RN * QuestionAnswerDate of AssessmentAuthorLevel of SwmlxewuiwzznWxhmk27/19/2025 12:15 PM Tiff Mei RNOrientation LevelOriented X4108/03/2024 12:15 PM Tiff Mei RNCognitionFollows xzjgjkau65/19/2025 12:15 PM Tiff Mei RN * GastrointestinalQuestionAnswerDate [...] PM Tiff Mei RN * QuestionAnswerDate of QhmyuvjdjmGsninpLREK2239/19/2025 11:30 AM ESTInterface, Device In * Pain AssessmentQuestionAnswerDate of AssessmentAuthorPain AssessmentNo/denies pain06/03/2025 12:15 PM Tiff Mei RN * Randolph Suicide Severity Rating ScaleQuestionAnswerDate of AssessmentAuthor1. Have [...] Dave Fishman RN * Modified AldreteQuestionAnswerDate of OkevxtmvhhTwjicuSzhyxpbf190/19/2025 12:15 PM Tiff Mei RNRespiration 12:15 PM Tiff Mei RNCirculation 12:15 PM Tiff Mei RNConsciousness 12:15 PM Tiff Mei RNOxygen Knmbgzzmpe488/19/2025 12:15 PM Tiff Mei RN * Modified Kirsten ScoreAnswerDate of AdjzsecssaZdmdok9058/19/2025 12:15 PM Tiff Crabtree RN documented as of this encounter Mental Status * Modified AldreteQuestionAnswerEntry RxguXgjfluBgmgtfkd598/19/2025 12:15 PM Tiff Crabtree RNRespiration 12:15 PM Tiff Mei RN Nvpbovmfubx425/19/2025 12:15 PM Tiff Mei RNConsciousness 12:15 PM Tiff Mei RNOxygen Ufosgrypxx196/19/2025 12:15 PM Tiff Mei RN * Modified Kirsten ScoreAnswerEntry GeymUmxzvo1097/19/2025 12:15 PM Tiff Mei RN documented in this encounter Medications at Time [...] the same time.05/01/2025documented as of this encounter Plan of Treatment Not on file documented as of this encounter Procedures Procedure NamePriorityDate/TimeAssociated DiagnosisCommentsFL LESS THAN 1 HOUR CXGPYCFNINLMGHSgxpcij64/19/2025 11:38 AM EST Gallbladder anomaly Gallbladder & bile duct stone, nonacute cholecystitis & obstruction documented in this encounter Results * FL LESS THAN 1 HOUR INTRAOPERATIVE (06/03/2025 11:38 AM EST)Anatomical Region LateralityModalityX-Ray AngiographySpecimen (Source)Anatomical Location / LateralityCollection Method / VolumeCollection TimeReceived Time06/03/2025 11:58 AM EST Impressions 06/03/2025 11:58 AM EST * Intraoperative fluoroscopy provided for ERCP. Please note, no radiologist was present during the procedure. A radiologist reviewed the procedural images. Electronically signed: BUDDY MENDOZA MD. Narrative 06/03/2025 11:58 AM EST CLINICAL INFORMATION: Pain. FINDINGS: Reference air kerma = 591.5 mGy. Procedure Note Buddy Mendoza MD - 06/03/2025 CLINICAL INFORMATION: Pain. FINDINGS: Reference air kerma = 591.5 mGy. IMPRESSION: *Intraoperative fluoroscopy provided for ERCP. Please note, no radiologist was present during the procedure. Aradiologist reviewed the procedural images. Electronically signed: BUDDY MENDOZA MD. Authorizing ProviderResult TypeResult StatusDougdebra Lundberg MDIMG FLUOROSCOPY PROCEDURESFinal Result documented in this encounter Visit Diagnoses Diagnosis Gallbladder anomaly Gallbladder & bile duct stone, nonacute cholecystitis & obstruction Calculus of gallbladder and bile duct with other cholecystitis, with obstruction documented in this encounter Care Teams Team MemberRelationshipSpecialtyStart DateEnd Date Sandeep Lundberg MD [address] [facility] [place] [address] PCP - GeneralFamily Lfbhpujy95/27/25documented as of this encounter
[2025-06-04] VITALS (21 sets, daily range): BP systolic 124–143; BP diastolic 79–100; PULSE 63–74; TEMP 36.6; O2SAT 96–99; BMI 28.2
--- NOTE | 2025-06-04 14:17 | ECG_ITS ---
The [facility] Test Date: 2025-06-04 Pat Name: PRAVEENA DACOSTA Department: Room: - Gender: Female Finish Specialist: : 1965 Requested By: 1030 Order Number: [id number] Reading MD: FRANCES ALVES M.D. Measurements Intervals [place] Rate: 70 P: 47 OK: 162 QRS: 54 QRSD: 76 T: 15 QT: 390 QTc: 410 Interpretive Statements 1100 Sinus rhythm 9110 normal ECG Compared to ECG 08/30/2024 20:58:02 No significant changes Electronically Signed On 06-04-2025 19:24:35 EST by FRANCES ALVES M.D.
--- NOTE | 2025-06-04 14:17 | XR_ITS ---
The [address] [address] Patient Name: PRAVEENA DACOSTA MRN: [id number] date: 1965 Sex: F Assigned Patient Location: ER Current Patient Location: ER Accession/Order Number: [id number] Exam Date: 06/04/2025 14:30 Report Date: 06/04/2025 14:42 At the request of: HANG TREVIZO MD Procedure: XR chest 1V Single view chest: CLINICAL HISTORY: Epigastric pain COMPARISON: Chest 09/01/2024 FINDINGS: The heart is normal in size. The lungs are clear. The pulmonary vasculature is normal. Mediastinum and hilar regions are unremarkable. No pleural effusions are seen. Visualized bones are intact. XR/XR chest 1V IMPRESSION: NO ACUTE PROCESS. Impression dictated by: Galen Martin Jr., D.O. 06/04/2025 2:42 PM Dictation Location: [place] [address] Electronically authenticated by: [id number] Y Date: 06/04/2025 14:42
--- NOTE | 2025-06-04 14:20 | ED.GENADUL1 ---
HPI HPI - General Adult General Chief complaint: Chest Pain Stated complaint: CHEST PAIN, SOB - POST SURGERY Time Seen by Provider: 06/04/25 14:13 Source: patient and family Mode of arrival: Wheelchair Limitations: no limitations History of Present Illness HPI narrative: 60-year-old female presents for epigastric pain. This started about 20 minutes ago while she was eating. Yesterday she had an ERCP and the stone was removed. This was done at [facility]. She does not have substernal pain, the pain is isolated to the epigastric area. She is nauseous but did not vomit. No trauma or fever. She does not complain of shortness of breath. Related Data Home Medications ?Medication ?Instructions ?Recorded ?Confirmed fluoxetine 10 mg capsule 10 mg PO DAILY 05/11/24 06/04/25 levothyroxine 125 mcg tablet 125 mcg PO DAILY 05/11/24 06/04/25 lisinopril 10 mg tablet 10 mg PO DAILY 05/11/24 06/04/25 modafinil 200 mg tablet 200 mg PO DAILY 05/11/24 06/04/25 phentermine 37.5 mg tablet mg 06/04/25 simvastatin 20 mg tablet mg 06/04/25 tramadol 50 mg tablet mg 06/04/25 Allergies Allergy/AdvReac Type Severity Reaction Status Date / Time penicillin G Allergy Severe Hives Verified 06/04/25 14:16 codeine AdvReac Agitated Verified 06/04/25 14:16 Opioid HPI Opioid Management Most Recent Opioid Data: Last Pain Scale 6 Today, 16:19 Last MAR Pain Assessment Today, 16:19 Last ORT Total Score 3 08/31/24, 03:04 Last ORT Risk Category Low Risk 08/31/24, 03:04 Review of Systems ROS Narrative A ten point review of systems is negative except as noted above. [facility] Medical History (Updated 06/04/25 @ 17:33 by Gordon Mills MD) Nausea & vomiting ?R11.2 - Nausea with vomiting, unspecified (ICD-10) COVID ?U07.1 - COVID-19 (ICD-10) Transaminitis ?R74.01 - Elevation of levels of liver transaminase levels (ICD-10) HTN (hypertension) ?I10 - Essential (primary) hypertension (ICD-10) Colitis ?K52.9 - Noninfective gastroenteritis and colitis, unspecified (ICD-10) Colitis, acute ?K52.9 - Noninfective gastroenteritis and colitis, unspecified (ICD-10) Intractable nausea ?R11.0 - Nausea (ICD-10) Sleep apnea ?G47.30 - Sleep apnea, unspecified (ICD-10) Hypothyroidism ?E03.9 - Hypothyroidism, unspecified (ICD-10) Surgical History History of lobectomy of lung ?Z90.2 - Acquired absence of lung [part of] (ICD-10) Family History Other Family history of CHF (congestive heart failure) Family history of cancer Family history of diabetes mellitus Family history of hypertension Family history of myocardial infarction Social History Within the past year, how often did you have a drink containing alcohol: monthly or less Smoking status: Never smoker Non-prescribed substance use: denies use Are you now , , , , never or living with a partner: In a typical week, how many times do you talk on the telephone with family, friends, or neighbors: 3 or more times per week How often do you get together with friends or relatives: 3 or more times per week Little interest or pleasure in doing things: not at all Feeling down, depressed, or hopeless: not at all Feel stressed/tense/nervous/anxious/difficulty sleeping: not at all Do you think of yourself as: straight/heterosexual Gender Identity: female Exam Narrative Exam Narrative: Nurses note and vital signs reviewed General:The patient appears uncomfortable and seems to prefer to keep her eyes closed. Skin:Warm, dry, no pallor noted.There is no rash noted. Head:Normocephalic, atraumatic Eye: Normal conjunctiva, no drainage Ears, Nose, Mouth, and Throat: oral mucosa is moist. Nares patent. Cardiovascular:Regular Rate and Rhythm Respiratory:Patient is in no distress, no accessory muscle use, lungs are clear to auscultation, no wheezing, rales or rhonchi GI: Is present only in the epigastric area. No distention or rebound. Musculoskeletal: The patient has no evidence of calf tenderness, no pitting edema, symmetrical pulses noted bilaterally Neurological:A&O, normal speech Psychiatric:Cooperative Constitutional Vital Signs, click to edit/add: Last Vital Signs Temp 97.8 F 06/04/25 14:13 Pulse 65 06/04/25 16:50 Resp 16 06/04/25 16:50 BP 136/83 06/04/25 16:41 Pulse Ox 97 06/04/25 16:50 O2 Del Method Room Air 06/04/25 14:13 Course Vital Signs Vital signs: Vital Signs Pulse Rate 72 06/04/25 14:09 Respiratory Rate 29 H 06/04/25 14:09 Temperature 97.8 F 06/04/25 14:13 Pulse Rate 65 06/04/25 16:50 Respiratory Rate 16 06/04/25 16:50 Blood Pressure 136/83 06/04/25 16:41 Pulse Oximetry 97 06/04/25 16:50 Oxygen Delivery Method Room Air 06/04/25 14:13 Medical Decision Making MDM Narrative Medical decision making narrative: Workup is negative to sets of troponin and CAT scan. Radiologist comments include moderate constipation and she was informed. She has no evidence of pancreatitis and she will be discharged home. Treatment diagnosis and follow-up were discussed with the patient and her family. Differential Diagnosis Differential Diagnosis: Otitis, [place], pneumothorax, colitis Lab Data Lab results reviewed: Yes I reviewed the patient's lab results Labs: Lab Results 06/04/25 06/04/25 Range/Units 14:15 15:30 WBC 13.3 H (4.0-11.0) 10^3/uL RBC 4.46 (4.20-5.40) 10^6/uL Hgb 13.4 (12.0-16.0) g/dL Hct 40.0 (36.0-48.0) % MCV 89.7 (81.0-99.0) fL MCH 30.0 (26.7-34.0) pg MCHC 33.5 (29.9-35.2) g/dL RDW 12.8 (11.0-15.0) % Plt Count 242 (150-450) 10^3/uL MPV 10.1 (9.5-13.5) fL Neut % (Auto) 74.2 (43.0-75.0) % Lymph % (Auto) 20.2 L (20.5-60.0) % Gilliam % (Auto) 4.9 (1.7-12.0) % Eos % (Auto) 0.2 L (0.9-7.0) % Baso % (Auto) 0.2 (0.2-2.0) % Neut # (Auto) 9.8 H (1.4-6.5) 10^3/uL Lymph # (Auto) 2.7 (1.2-3.8) 10^3/uL Gilliam # (Auto) 0.7 (0.3-0.8) 10^3/uL Eos # (Auto) 0.0 (0.0-0.7) 10^3/uL Baso # (Auto) 0.0 (0.0-0.1) 10^3/uL Abs Immat Gran (auto) 0.04 H (0.00-0.03) 10^3/uL Imm/Tot Granulo (auto) 0.3 (0.0-0.5) % Sodium 141 (136-145) mmol/L Potassium 3.6 (3.5-5.1) mmol/L Chloride 103 (98-107) mmol/L Carbon Dioxide 26.9 (21.0-32.0) mmol/L Anion Gap 14.7 BUN 15.0 (7.0-18.0) mg/dL Creatinine 0.88 (0.55-1.02) mg/dL Est GFR ( Amer) >60 (>=60 mL/min/1.73m^2) Est GFR (Non-Af Amer) >60 (>=60 mL/min/1.73m^2) BUN/Creatinine Ratio 17.0 Glucose 91 (74-106) mg/dL Calcium 9.3 (8.5-10.1) mg/dL Total Bilirubin 0.5 (0.2-1.0) mg/dL Direct Bilirubin 0.2 (0.0-0.2) mg/dL AST 30 (15-37) U/L ALT 48 (14-59) U/L Alkaline Phosphatase 80 (46-116) U/L Troponin I High Sens 5.6 <4.0 L (4.0-51.3) pg/mL Total Protein 7.7 (6.4-8.2) g/dL Albumin 4.3 (3.4-5.0) g/dL Globulin 3.4 g/dL Albumin/Globulin Ratio 1.3 Amylase 49 (25-115) U/L Lipase 32.0 (16.0-77.0) U/L Imaging Data Chest x-ray: Radiologist's impression: ITS Impressions Chest X-Ray 06/04/25 14:17 IMPRESSION: NO ACUTE PROCESS. Impression dictated by: Galen Martin Jr., D.O. 06/04/2025 2:42 PM Dictation Location: [employer] Electronically authenticated by: [id number] Y Date: 06/04/2025 14:42 Abdomen/Pelvis CT 06/04/25 15:38 IMPRESSION: No acute findings. Mild prominence of common bile duct likely secondary to cholecystectomy. No focal inflammatory changes. No pneumoperitoneum. The proximal constipation. Impression dictated by: Brandan Dubois M.D. 06/04/2025 5:25 PM Dictation Location: [employer] Electronically authenticated by: [id number] Y Date: 06/04/2025 17:25 ECG Data Attestation: I personally reviewed and interpreted this ECG as follows: (EKG on my interpretation shows sinus rhythm with a rate of 70, no acute changes.) Discharge Plan Discharge Chief Complaint: Chest Pain Clinical Impression: Chest pain, Epigastric pain, Constipation Patient Disposition: Home, Self-Care Time of Disposition Decision: 17:33 Condition: Good Mode of Transportation: Private Vehicle Prescriptions / Home Meds: No Action modafinil 200 mg tablet 200 mg PO DAILY levothyroxine 125 mcg tablet 125 mcg PO DAILY lisinopril 10 mg tablet 10 mg PO DAILY fluoxetine 10 mg capsule 10 mg PO DAILY phentermine 37.5 mg tablet tramadol 50 mg tablet simvastatin 20 mg tablet Print Language: Czech Instructions: Constipation (ED), Abdominal Pain (ED), Epigastric Pain (ED) Referrals: Sandeep Lundberg MD [Primary Care Provider, Family Practice] - 1 week
[2025-06-04 14:35] LABS: Hematocrit 40.0 % (36.0-48.0); Hemoglobin 13.4 g/dL (12.0-16.0); Immature Granulocytes Abs Auto 0.04 10^3/uL (0.00-0.03); Immature Granulocytes Pct Auto 0.3 % (0.0-0.5); Lymphocytes Absolute Auto 2.7 10^3/uL (1.2-3.8); Mean Corpuscular HGB Conc 33.5 g/dL (29.9-35.2); Mean Corpuscular Hemoglobin 30.0 pg (26.7-34.0); Mean Corpuscular Volume 89.7 fL (81.0-99.0); Platelet Count 242 10^3/uL (150-450); Red Blood Count 4.46 10^6/uL (4.20-5.40); White Blood Count 13.3 10^3/uL (4.0-11.0)
[2025-06-04] MEDS: 0.9 % SODIUM CHLORIDE 1,000 ML 1000 ML IV (14:37)
[2025-06-04] MEDS: MORPHINE SULFATE 4 MG/ML VIAL IV ×2 (14:37→16:19)
[2025-06-04 14:48] LABS: Anion Gap 14.7; Blood Urea Nitrogen 15.0 mg/dL (7.0-18.0); Calcium 9.3 mg/dL (8.5-10.1); Carbon Dioxide 26.9 mmol/L (21.0-32.0); Chloride 103 mmol/L (98-107); Estimated GFR (African America >60 (>=60 mL/min/1.73m^2); Estimated GFR (Non-African Ame >60 (>=60 mL/min/1.73m^2); Glucose 91 mg/dL (74-106); Potassium 3.6 mmol/L (3.5-5.1); Sodium 141 mmol/L (136-145)
--- OUTSIDE RECORDS SUMMARY | 2025-06-04 14:50 | XMS_ITS | Encounter Summary ---
Author Organization [facility] Address [address] [place] [address] Care Team Providers Care Rn Sexual Assault Name Role Phone Sandeep Lundberg MD Primary Care Provider [phone] Encounter Details DateTypeDepartmentCare Team (Latest Contact Info)Nqcfzvccjlg89/07/2025Telephone [facility] [address] [place] [address] Monique Morales RN Social History Tobacco UseTypesPacks/DayYears UsedDateSmoking Tobacco: Never Assessed CommentsUnknownSex and Gender InformationValueDate RecordedSex Assigned at Iqzjlp4406/03/2025 7:46 AM ESTLegal XfvJtwqev22/27/2025 5:11 PM EDTGender Identity Axbhhg5506/03/2025 7:46 AM ESTSexual OrientationHeterosexual or Gcqlgcnx57/19/2025 7:46 AM ESTdocumented as of this encounter Miscellaneous Notes * Telephone Encounter - Monique Morales RN - 05/22/2025 10:55 AM EST Referral received from Dr. Lundberg, see in media tab dated 05/11/25. Message left for patient to call and schedule an EUS/ERCP with Dr. Chantell Lopez. documented in this encounter Plan of Treatment Not on file documented as of this encounter Visit Diagnoses Not on filedocumented in this encounter Care Teams Team MemberRelationshipSpecialtyStart DateEnd Date Sandeep Lundberg MD [address] [place] [address] PCP - GeneralFamily Rnxjaeov74/27/25documented as of this encounter
--- OUTSIDE RECORDS SUMMARY | 2025-06-04 14:50 | XMS_ITS | Encounter Summary ---
Author Organization [facility] Address [address] [place] [address] Care Team Providers Care Bulk Sealer Operator Name Role Phone Sandeep Lundberg MD Primary Care Provider [phone] Encounter Details DateTypeDepartmentCare Team (Latest Contact Info)Mczwvljdbyg37/14/2025Travel Social History Tobacco UseTypesPacks/DayYears UsedDateSmoking Tobacco: NeverSmokeless Tobacco: NeverCommentsUnknownSex and Gender InformationValueDate RecordedSex Assigned at YkztiIotjvc18/19/2025 7:46 AM ESTLegal XoqSxrxyf32/27/2025 5:11 PM EDTGender VndhlguiFlqrbz71/19/2025 7:46 AM ESTSexual OrientationHeterosexual or Iazmyvkr84/19/2025 7:46 AM ESTdocumented as of this encounter Functional Status * Audit Alcohol ScreeningQuestionAnswerDate of AssessmentAuthorHow often do you have a drink containing alcohol? 9:41 AM Marilou Mccurdy RN How many standard drinks containing alcohol do you have on a typical day?No 05/29/2025 9:41 AM Marilou Mccurdy RNHow often do you have six or more drinks on one occasion? 9:41 AM Marilou Mccurdy RNAudit-Edilberto Pjyge10807/29/2024 9:41 AM Marilou Mccurdy RN * Audit Alcohol ScreeningQuestionAnswerDate of AssessmentAuthorHow often do you have a drink containing alcohol? 9:41 AM Marilou Mccurdy RN How many standard drinks containing alcohol do you have on a typical day?No 05/29/2025 9:41 AM Marilou Mccurdy RNHow often do you have six or more drinks on one occasion? 9:41 AM Marilou Mccurdy RNAudit-C Qujws91407/29/2024 9:41 AM Marilou Mccurdy RN documented as of this encounter Plan of Treatment Not on file documented as of this encounter Visit Diagnoses Not on filedocumented in this encounter Care Teams Team MemberRelationshipSpecialtyStart DateEnd Date Sandeep Lundberg MD [address] [facility] [place] [address] PCP - GeneralFamily Tejgmfsn41/27/25documented as of this encounter
--- OUTSIDE RECORDS SUMMARY | 2025-06-04 14:50 | XMS_ITS | Encounter Summary ---
Author Organization [facility] Address [address] [place] [address] Care Team Providers Care Literacy Coordinator Name Role Phone Sandeep Lundberg MD Primary Care Provider [phone] Encounter Details DateTypeDepartmentCare Team (Latest Contact Info)Dksyolnlxzo71/10/2025Telephone [facility] [address] [place] [address] Keyla Valladares RN Social History Tobacco UseTypesPacks/DayYears UsedDateSmoking Tobacco: Never Assessed CommentsUnknownSex and Gender InformationValueDate RecordedSex Assigned at Lwslrk1306/03/2025 7:46 AM ESTLegal VxeBrtgji00/27/2025 5:11 PM EDTGender Identity Dqzcir2106/03/2025 7:46 AM ESTSexual OrientationHeterosexual or Rbpknqnx36/19/2025 7:46 AM ESTdocumented as of this encounter Miscellaneous Notes * Telephone Encounter - Keyla Valladares RN - 05/25/2025 2:21 PM EST Scheduled ER[facility]/Gallbladder duct stone [facility] Ref in media 05/11/25, Dr. Lundberg. documented in this encounter Plan of Treatment Not on file documented as of this encounter Visit Diagnoses Not on filedocumented in this encounter Care Teams Team MemberRelationshipSpecialtyStart DateEnd Date Sadneep Lundberg MD [address] [place] [address] PCP - GeneralFamily Gcedftes82/27/25documented as of this encounter
--- OUTSIDE RECORDS SUMMARY | 2025-06-04 14:51 | XMS_ITS | Clinical Summary ---
Author Organization [facility] Address [address] [place] [address] Care Team Providers Care Lease Administrator Name Role Phone Sandeep Lundberg MD Unavailable [phone] Sandeep Lundberg MD Primary Care Provider [phone] Allergies Active AllergyReactionsCriticalityNoted DateCommentsCodeineOther: See Comments, UsxiIjv6008/07/2023enicillinsAnaphylaxis,OxleOud1505/21/2023 Medications MedicationSigDispense QuantityRefillsLast FilledStart DateEnd DateStatus albuterol [...] Reported on 10/16/2024 Active Problems ProblemNoted DateDiagnosed SzktUwbtyyyjgqep81/03/2025 Assessment & Plan (09/16/2024 7:49 AM EST): Assessment: stable and compliant with current medications Last 5 Encounter BP Readings: Date: BP: 09/16/2024 144/91 09/12/2024 120/70 08/12/2024 123/83 Wqphqfhcwnsadf22/03/2025 Assessment & Plan (09/16/2024 7:51 AM EST): Assessment: stable with current medication regimen Pure hypercholesterolemia, uvpccymzyom95/03/2025 Assessment & Plan (09/16/2024 7:49 AM EST): Assessment: lifestyle modifications encouraged Sleep apnea, mjcaavufpmm63/03/2025 Assessment & Plan (09/16/2024 7:49 AM EST): Assessment: CPAP compliant Dxcvzxacupzgcy35/03/2025 Assessment & Plan (09/16/2024 7:50 AM EST): Assessment: presents for surgical intervention Tojwza1709/15/2024 Assessment & Plan (09/16/2024 7:52 AM EST): [...] Had COVID infection 08/31/24, was treated at [facility]. Today she is asymptomatic, Lungs CTA, breathing unlabored Social History Tobacco UseTypesPacks/DayYears UsedDateSmoking Tobacco: NeverSmokeless Tobacco: Never Tobacco Cessation:Counseling Given: Not Answered Alcohol UseStandard Drinks/WeekCommentsNever0 (1 standard drink = 0.6 oz pure alcohol)Area Deprivation IndexAnswerDate RecordedNational Score (1-100), lower number is lower crcy414108/12/2024State Score (1-10), lower number is lower risk6 08/12/2024Data from: https://www.neighborhoodatlas.medicine.[facility].edu/. Last address used for [address] [place] [address]CommentsNoSex and Gender InformationValueDate RecordedSex Assigned at BirthNot on fileLegal SexFemale 06/16/2012 8:27 AM ESTGender IdentityNot on fileSexual OrientationNot on file Last Filed Vital Signs Vital SignReadingTime TakenCommentsBlood Wpjtwfky855/6503 11:30 AM EDT Psblo105209/30/2024 11:30 AM WEBBbbxdndfglo98.3 ??C (97.3 ??F)09/30/2024 9:53 AM EDTRespiratory Bmnv927609/30/2024 11:16 AM EDTOxygen Afhnltaplc299%09/30/2024 11:30 AM EDTInhaled Oxygen Concentration--Rijldu02 kg (169 lb 12.1 oz)09/16/2024 6:52 AM AGLSikumx873.1 cm (5' 5 )09/16/2024 6:52 AM ESTBody Mass Index28.25 09/16/2024 6:52 AM EST Plan of Treatment Health MaintenanceDue DateLast DoneCommentsAnnual PCP Team Chronic Disease Visit 1985Anxiety Axdckeypa99/23/1985Depression Iwkzuyhiz97/23/1985HIV Screening 1985Hepatitis C Cugeqcrwg33/23/1985Hepatitis B Vaccine (1 of 3 - 19+ 3- dose series)1986Cervical Cancer Zaisjszge39/23/1988Mammogram Screening 2007CT Belrwcfseouw61/23/2012Cologuard (FIT-DNA)01/06/2012Colonoscopy 01/06/2012Colorectal Cancer Gkgmxmqzn37/23/2012Fecal Occult Blood01/06/2012Lipid Xtvrisjve92/23/5252Ytwxjrdxpnfjf19/23/2012Pneumococcal Vaccine: 50+ (1 of 1 - PCV)2017Shingrix Vaccine (1 of 2)2017Covid-19 Vaccine (3 - 2024- season)509/, 03/08/2021Influenza Vaccine (#1)2025Diabetes Bhhlkrdxy65/23/1181144DTaP,Tdap,Td Vaccine (2 - Td or Tdap)08/19/2034 08/19/2024 Insurance Care Teams Team MemberRelationshipSpecialtyStart DateEnd Sandeep Lundberg MD [address] [place] [address] PCP - GeneralFamily Medicine09/19/24 Sandeep Lundberg MD [address] [place] [address] ReferringFamily Medicine08/06/24
--- OUTSIDE RECORDS SUMMARY | 2025-06-04 14:51 | XMS_ITS | Encounter Summary ---
Author Organization [facility] Address [address] [place] [address] Care Team Providers Care Canoe Maker Name Role Phone Sandeep Lundberg MD Primary Care Provider [phone] Encounter Details DateTypeDepartmentCare Team (Latest Contact Info)Acbhjotsggh34/11/2025Orders Only [facility] [address] [place] [address] Mel Jefferson LPN [address] [facility] Social History Tobacco UseTypesPacks/DayYears UsedDateSmoking Tobacco: NeverCommentsNo Sex and Gender InformationValueDate RecordedSex Assigned at BirthFemale 05/23/2023 3:53 PM ESTLegal GeqEgwccp41/15/2023 8:13 PM EDTGender IdentityFemale 05/23/2023 3:53 PM ESTSexual LwrdcidvmwqFxtpeymq69/08/2023 3:53 PM ESTdocumented as of this encounter Plan of Treatment DateTypeDepartmentCare Team (Latest Contact Info)Fosstivwsbm60/23/2026 9:00 AM ESTProcedure Visit [facility] [address] [place] [address] Jennifer Jennings PA [address] [place] [address] documented as of this encounter Procedures Procedure NamePriorityDate/TimeAssociated DiagnosisCommentsPAP TEST, EXTERNAL Qtvunvw8005/24/2023 12:00 AM ESTdocumented in this encounter Results * PAP TEST, EXTERNAL (05/24/2023 12:00 AM EST) Narrative Authorizing ProviderResult TypeResult StatusFazio Nurse [facility] Bcp ObLAB CYTOLOGY ORDERABLESFinal ResultPerforming OrganizationAddressCity/State/ZIP CodePhone Number EXTERNAL LAB documented in this encounter Visit Diagnoses Not on filedocumented in this encounter Care Teams Team MemberRelationshipSpecialtyStart DateEnd Date Sandeep Lundberg MD [address] [facility] [place] [address] PCP - GeneralFamily Uejjbyyr67/9/23documented as of this encounter
--- OUTSIDE RECORDS SUMMARY | 2025-06-04 14:51 | XMS_ITS | Encounter Summary ---
Author Organization [facility] Address [address] [place] [address] Care Team Providers Care Barking Machine Feeder Name Role Phone Sandeep Lundberg MD Primary Care Provider [phone] Encounter Details DateTypeDepartmentCare Team (Latest Contact Info)Svdxjtmwkhc14/19/2025Travel Social History Tobacco UseTypesPacks/DayYears UsedDateSmoking Tobacco: NeverSmokeless Tobacco: NeverCommentsUnknownSex and Gender InformationValueDate RecordedSex Assigned at ToherPzmbyc34/19/2025 7:46 AM ESTLegal CxcJnrfae31/27/2025 5:11 PM EDTGender CkxbozilUphtmo09/19/2025 7:46 AM ESTSexual OrientationHeterosexual or Nqlcqitv62/19/2025 7:46 AM ESTdocumented as of this encounter Functional Status * QuestionAnswerDate of OmedjbcgagGzmstmKP610/8306/03/2025 12:15 PM Tiff Mei RNPulse7206/03/2025 12:15 PM Tiff Mei RNHeart Rate Source Iffnxnp4906/03/2025 8:05 AM Dave Fishman RNPatient PositionSitting 06/03/2025 8:05 AM Dave Fishman RN * Pain Assessment TimerQuestionAnswerDate of AssessmentAuthorRestart Pain Assessment CaoieEnw55/19/2025 12:15 PM Tiff Mei RN * Pain [...] (WDL)WDL108/03/2024 12:15 PM Tiff Mei RNR EyeCorrective lurpwy5106/03/2025 8:05 AM Dave Fishman RNL Eye Corrective mpkobh7206/03/2025 8:05 AM Dave Fishman RN * QuestionAnswerDate of AssessmentAuthorHead of [facility] [address]/03/2024 8:05 AM Dave Fishman RN * Vital SignsQuestionAnswerDate of NomfcuqsldJgqctqLL405/8306/03/2025 12:15 PM Tiff Mei RNTemp97. 11:30 AM Tiff Mei RNTemp src Zpofetcj40/19/2025 11:30 AM Tiff Mei, GNDlgzh4697/19/2025 12:15 PM Tiff Crabtree NTObqf6704/19/2025 12:15 PM Tiff Mie OGYpS3557 06/03/2025 12:15 PM Tiff Mei RNHeart Rate AthglnRkgiydu15/19/2025 8:05 AM Dave Fishman RNBP LocationLeft arm06/03/2025 8:05 AM Dave Fishman RNBP JwwsmnNgxagiqmu83/19/2025 8:05 AM Dave Fishman RNMAP (mmHg)9406/03/2025 12:00 PM Tiff Mei RNPulse rate from Plethysmogram (bpm)6606/03/2025 12:15 PM Tiff Mei RNPatient PositionSitting 06/03/2025 8:05 AM Dave Fishman RN * QuestionAnswerDate of AssessmentAuthorLevel of ChvupzqdjttgiNbyqp40/19/2025 12:15 PM Tiff Mei RNOrientation LevelOriented X4108/03/2024 12:15 PM Tiff Mei RNCognitionFollows xcrhzuer41/19/2025 12:15 PM Tiff Mei RN * GastrointestinalQuestionAnswerDate of AssessmentAuthorGastrointestinal (WDL) WD08/03/2024 12:15 PM Tiff Mei RN * Peripheral VascularQuestionAnswerDate of AssessmentAuthorPeripheral Vascular (WDL)WD08/03/2024 12:15 PM Tiff Mei RN * MusculoskeletalQuestionAnswerDate of AssessmentAuthorMusculoskeletal (WDL)WDL 06/03/2025 12:15 PM Tiff Mei RN * RespiratoryQuestionAnswerDate of AssessmentAuthorRespiratory (WDL)WDL 06/03/2025 12:15 PM Tiff Mei RN * GenitourinaryQuestionAnswerDate of AssessmentAuthorGenitourinary (WDL)WDL 06/03/2025 12:15 PM Tiff Mei RN * QuestionAnswerDate of UqsnspcyzzKzrnrmWGZA0013/19/2025 11:30 AM ESTInterface, Device In * Pain AssessmentQuestionAnswerDate of AssessmentAuthorPain AssessmentNo/denies pain06/03/2025 12:15 PM Tiff Mei RN * [place] Suicide Severity Rating ScaleQuestionAnswerDate of AssessmentAuthor1. Have [...] Dave Fishman RN * Modified AldreteQuestionAnswerDate of YtpkfowrxdCnvrahSvyyadac906/19/2025 12:15 PM Tiff Mei RNRespiration 12:15 PM Tiff Mei RNCirculation 12:15 PM Tiff Mei RNConsciousness 12:15 PM Tiff Mei RNOxygen Zebluhpwne901/19/2025 12:15 PM Tiff Mei RN * Modified Kirsten ScoreAnswerDate of XtcbmtcohmWsaklg3829/19/2025 12:15 PM Tiff Crabtree RN documented as of this encounter Mental Status * Modified AldreteQuestionAnswerEntry IuycLtagskWsqgzzcs513/19/2025 12:15 PM Tiff Crabtree RNRespiration211/ 12:15 PM Tiff Mei RN Jqrnzbuaavl144/19/2025 12:15 PM Tiff Mei RNConsciousness2108/03/2024 12:15 PM Tiff Mei RNOxygen Eearbplirr665/19/2025 12:15 PM Tiff Mei RN * Modified Kirsten ScoreAnswerEntry YdfjBcqqkv5835/19/2025 12:15 PM Tiff Mei RN documented in this encounter Plan of Treatment Not on file documented as of this encounter Visit Diagnoses Not on filedocumented in this encounter Care Teams Team MemberRelationshipSpecialtyStart DateEnd Date Sandeep Lundberg MD [address] [facility] [place] [address] PCP - GeneralFamily Iqbovmll65/27/25documented as of this encounter
--- OUTSIDE RECORDS SUMMARY | 2025-06-04 14:51 | XMS_ITS | Clinical Summary ---
Author Organization [facility] Address [address] [place] [address] Care Team Providers Care Customer Expert Name Role Phone Sandeep Lundberg MD Primary Care Provider [phone] Allergies Active AllergyReactionsCriticalityNoted DateCommentsCodeineAnxiety,GI intolerance,OddbXeu7708/07/2023 Other Reaction(s): Agitated, Other: See Comments Erythromycin BaseGI puplsgrhedg17/06/7257CaeocmflebvNamckrihbotGwbd65/14/2025 Medications MedicationSigDispense QuantityRefillsLast FilledStart DateEnd DateStatus levothyroxine (Synthroid, Levoxyl) 125 MCG tablet Take 125 mcg by mouth in the morning.05/11/2023ctive lisinopril 10 MG tablet Take 10 mg by mouth in the morning.05/11/2023ctive Fqffhibwbly-Yhvhwlddf-Foyown (Trelegy Ellipta) 100-62.5-25 MCG/ACT aerosol powder Indications:WheezeInhale 1 puff Daily 1 each 5Active modafinil (Provigil) 200 MG tablet Indications:HypersomniaTake 1 tablet (200 mg) by mouth Daily 30 tablet ctive FLUoxetine (PROzac) 10 MG capsule Indications:Weight gainTAKE 1 CAPSULE BY MOUTH EVERY DAY 90 capsule 5Active Active Problems No known active problems Encounters DateTypeDepartmentCare NrvzEkzidojcpoz84/18/2025 11:00 AM ESTProcedure Visit [facility] [place] [facility] [address] [place] [address] Jennifer Jennings PA Well woman exam with routine gynecological exam; Encounter for screening mammogram for malignant neoplasm of breast; Osteoporosis, post-/18/2025amboo flowsheet [facility] [address] [place] [address] Jennifer Jennings PA 05/27/20256801Uukeef47/11/2025Orders Only [facility] [place] [facility] [address] [place] [address] Mel Jefferson LPN 04/12/2025Refill [facility] [place] [facility] [address] [place] [address] Kadeem Robertson DO Weight gain03/10/2025Telephone [facility] [place] [facility] [address] [place] [address] Kadeem Robertson DO from Last 3 Months Social History Tobacco UseTypesPacks/DayYears UsedDateSmoking Tobacco: Never Tobacco Cessation:Counseling Given: Not Answered CommentsNoSex and Gender InformationValueDate RecordedSex Assigned at NmfjcGhkahj64/08/2023 3:53 PM ESTLegal IjzFarezg21/15/2023 8:13 PM EDTGender XnaxltmhVdkhnb61/08/2023 3:53 PM ESTSexual BdgtsblmnfnDfnbuhkz36/08/2023 3:53 PM EST Last Filed Vital Signs Vital SignReadingTime TakenCommentsBlood Zowzholq184/7406/02/2025 11:15 AM EST Blmii002604/16/2024 9:35 AM EDTTemperature--Respiratory Rate--Oxygen Wkghkunaxf84% 04/16/2024 9:35 AM EDTInhaled Oxygen Concentration--Nxuyqj96.1 kg (181 lb) 06/02/2025 11:15 AM ULUJvougn748.6 cm (5' 6 )06/09/2024 2:23 PM ESTBody Mass Index29. 2:23 PM EST Plan of Treatment DateTypeDepartmentCare Team (Latest Contact Info)Gsxyjnphtua62/23/2026 9:00 AM ESTProcedure Visit [facility] [place] [facility]YDan[facility] [address] [place] [address] Jennifer Jennings PA [address] [facility] [address] [place], [place] [address] Health MaintenanceDue DateLast DoneCommentsCT Gnllmqbtmjmw1967Colonoscopy 1967Colorectal Cancer Itsrunvrg1967FIT-DNA1967FIT1967 FOBT1967 0880Gdsidsolkkyci1967HPV/Tfkqfh7501/05/19978195Wdmdqjfub72/15/2024 3COVID-19 Vaccine ( season)509/, 03/08/2021 Influenza Vaccine (#1)5Cervical Cancer Obcudvgme54/09/2026Pap Smear 613Pneumococcal Vaccine: Pediatrics (0 to 5 Years) and At-Risk Patients (6 to 64 Years)Aged OutNo longer eligible based on patient's age to complete this topic Procedures Procedure NamePriorityDate/TimeAssociated DiagnosisCommentsMM TOMOSYNTHESIS SCREENING BI06/29/2023 8:13 AM EST PAP TEST, JGIXOYBGIeazfcg59/09/2023 12:00 AM ESTfrom Last 3 Months or Most Recently Relevant to Health Maintenance Results * MM TOMOSYNTHESIS SCREENING BI (06/29/2023 8:13 AM EST)Anatomical Region LateralityModalityOtherSpecimen (Source)Anatomical Location / Laterality Collection Method / VolumeCollection TimeReceived Time06/29/2023 8:13 AM EST Narrative 06/29/2023 8:14 AM EST [facility] ?[address] ? [place] [address] ? Mammography Report ? Signed ? Patient: OLESYA,LEIDA J ?MR#: [id number] ?? : 1965 ?Acct:[id number] ?? Age/Sex: 58 / F ?ADM Date: 12/13/23 ?? Loc: MAMMO ? Attending Dr: Jennifer Jennings ? Ordering Physician: Jennifer Jennings ?Results: ? Date of Service: 06/27/23 ?Follow Up: ? Procedure(s): MM tomosynthesis screening BI ?? Accession Number(s): [id number] ? cc: Jennifer Jennings; Sandeep Lundberg M.D. ? Patient Name: ? LEIDA LAIRD ? MR#: [id number] ? : 1965 ? Exam Date: 06/27/2023 [...] at age ??50. ? LOCATION: ? [facility] ? BREAST COMPOSITION: ? Heterogeneously dense,which may [...] 0814 ? DD/ 0813 ? TD/TT: ? Program Aide: Procedure Note Radiology, Radiologist, MD - 06/29/2023 [place] [address] Mammography Report Signed Patient: LEIDA LAIRD JMR#: [id number] : 1965Acct:[id number] Age/Sex: 58 / FADM Date: 06/27/23 Loc: MAMMO Attending Dr: Jennifer Jennings Ordering Physician: Jennifer Keyults: Date of Service: 06/27/23Follow Up: Procedure(s): MM tomosynthesis screening BI Accession Number(s): [id number] cc: Jennifer Jennings; Sandeep Lundberg M.D. Patient Name: LEIDA LAIRD MR#: [id number] : 1965 Exam Date: 06/27/2023 Ordering Doctor: [...] breast cancer at age 50. LOCATION: [facility] BREAST COMPOSITION: Heterogeneously dense,which may obscure smallmasses. [...] Montenegro M.D. Signed By:06/29/23813 DD/ 2 TD/TT: Program Aide: Authorizing ProviderResult TypeResult StatusAmy Dick PACLINISYNC IMAGINGFinal Result * PAP TEST, EXTERNAL (05/24/2023 12:00 AM EST) Narrative Authorizing ProviderResult TypeResult StatusFazio Nurse [facility] Ob[facility] CYTOLOGY ORDERABLESFinal ResultPerforming OrganizationAddressCity/State/ZIP CodePhone Number EXTERNAL LAB from Last 3 Months or Most Recently Relevant to Health Maintenance Insurance Care Teams Team MemberRelationshipSpecialtyStart DateEnd Sandeep Lundberg MD [address] [place] [address] [facility] Hlvuondp34/9/23
--- OUTSIDE RECORDS SUMMARY | 2025-06-04 14:51 | XMS_ITS | Clinical Summary ---
Author Organization [facility] Address [address] [place] [address] Care Team Providers Care Can Machine Operator Name Role Phone Sandeep Lundberg MD Primary Care Provider [phone] Allergies Active AllergyReactionsCriticalityNoted DateCommentsCodeineAnxiety,GI intolerance,HrwcFdv1308/07/20233127SwoofvlqowTljikmcobbiUbpe40/14/2025 Medications MedicationSigDispense QuantityRefillsLast FilledStart DateEnd DateStatus lisinopril 10 mg tablet 10 mg 1 (one) time each day.Active levothyroxine (Synthroid, Levoxyl) 125 mcg tablet TAKE 1 TABLET BY MOUTH EVERY DAY; Duration: 90 days3Active modafinil (Provigil) 200 mg tablet take 1 tablet by mouth in the morning for 30 daysActive simvastatin (Zocor) 20 mg tablet 1 (one) time each day at the same time.5Active FLUoxetine (PROzac) 10 mg capsule Take 10 mg by mouth in the morning.4Active Encounters DateTypeDepartmentCare QuwbCavzjatbrvx17/20/2025Telephone [facility] [address] [place] [address] Monique Mroales RN 06/03/2025 10:28 AM EST - 06/03/2025 11:59 PM ESTHospital Encounter [facility] [address] [place] [phone] Gallbladder anomaly; Gallbladder & bile duct stone, nonacute cholecystitis & obstruction Discharge Disposition: Home or Self Care ()06/03/2025 10:24 AM ESTAnesthesia Event [facility] [address] [place] [phone] Isabella Yeboah MD Arnaut, Daniel, MD 06/03/2025 7:46 AM EST - 06/03/2025 10:27 AM ESTHospital Encounter [facility] [address] [place] [phone] Chantell Lopez MD Secrist, Philip, CAA Gerken, Sarah, MD Gallbladder anomaly; Gallbladder & bile duct stone, nonacute cholecystitis & obstruction Discharge Disposition: Home or Self Care ()06/03/20250267Ezszbt45/14/2025Travel 05/25/2025Telephone [facility] [address] [place] [phone] Keyla Valladares RN 05/22/2025Telephone [facility] [address] [place] [phone] Monique Morales, RONALD from Last 3 Months Social History Tobacco UseTypesPacks/DayYears UsedDateSmoking Tobacco: NeverSmokeless Tobacco: Never Tobacco Cessation:Counseling Given: Not Answered CommentsUnknownSex and Gender InformationValueDate RecordedSex Assigned at OvromDbcweb59/19/2025 7:46 AM ESTLegal AchOawtxg21/27/2025 5:11 PM EDTGender QctwpxhfOcfaof36/19/2025 7:46 AM ESTSexual OrientationHeterosexual or Straight 06/03/2025 7:46 AM EST Last Filed Vital Signs Vital SignReadingTime TakenCommentsBlood Siflfxbv552/8306/03/2025 12:15 PM EST Vsyzq141606/03/2025 12:15 PM BRLMfoxfqxixpg44.3 ??C (97.3 ??F)06/03/2025 11:30 AM ESTRespiratory Nsxg155008/03/2024 12:15 PM ESTOxygen Whkhrxokvv760%06/03/2025 12:15 PM ESTInhaled Oxygen Concentration--Odabjt52.4 kg (181 lb 10.5 oz) 06/03/2025 8:05 AM BGVWwbkbr140.6 cm (5' 6 )06/03/2025 8:05 AM ESTBody Mass Index29.32108/03/2024 8:05 AM EST Plan of Treatment Health MaintenanceDue DateLast DoneCommentsDepression Zfwmuhjzo42/23/1979 Hepatitis B Vaccines (1 of 3 - 19+ 3-dose series)1986Pneumococcal Vaccine: Pediatrics (0 to 5 Years) and At-Risk Patients (6 to 64 Years) (1 of 2 - PCV) 1986Pap Smear01/06/1988Adult Kusclrc4701/05/1989Cervical Cancer Screening 1997HPV/Hjumph0801/05/19973001Yrjjfsztc40/23/2007Zoster Vaccines (1 of 2) 2017COVID-19 Vaccine ( - season)509/, 03/08/2021 Influenza Vaccine (#1)2025HIB VaccinesAged OutNo longer eligible based on patient's age to complete this topicHPV VaccinesAged OutNo longer eligible based on patient's age to complete this topicIPV VaccinesAged OutNo longer eligible based on patient's age to complete this topicMeningococcal B VaccineAged OutNo longer eligible based on patient's age to complete this topicMeningococcal VaccineAged OutNo longer eligible based on patient's age to complete this topic Rotavirus VaccinesAged OutNo longer eligible based on patient's age to complete this topic Procedures Procedure NamePriorityDate/TimeAssociated DiagnosisCommentsFL LESS THAN 1 HOUR VTDOSLGBLBOKHNTwveyfv56/19/2025 11:38 AM EST Gallbladder anomaly Gallbladder & bile duct stone, nonacute cholecystitis & obstruction ENDOSCOPIC RETROGRADE KJVXTFYCBEIBPDYPCLNIIPEQTfgjvqx51/19/2025 11:25 AM EST Gallbladder anomaly Gallbladder & bile duct stone, nonacute cholecystitis & obstruction FL AN ELECTIVE ENDOTRACHEAL QSZLJOUdvqmby40/19/2025 10:30 AM EST POCT GLUCOSE METER UNSOLICITED RRJRENZZnzzxhr25/19/2025 8:12 AM EST from Last 3 Months Results * FL LESS THAN 1 HOUR [...] signed: BUDDY MENDOZA MD. Authorizing ProviderResult TypeResult StatusDobuster Lundberg MDIMG FLUOROSCOPY PROCEDURESFinal Result * ERCP (06/03/2025 11:25 AM EST)Anatomical RegionLateralityModalityEndoscopy Specimen (Source)Anatomical Location / LateralityCollection Method / Volume Collection TimeReceived Time Narrative 06/03/2025 6:31 PM EST Endoscopic Retrograde Cholangiopancreatography (ERCP) Procedure Note Procedure: ??ERCP with stone removal and sphincterotomy Indications: ?? Suspected choledocholithiasis, RUQ ultrasound shows CBD 9-10 mm with stone visualized. History of post-cholecystectomy biliary-type pain triggered by fatty meals. Sedation: ??General painter spray Physician: ??Chantell Lopez MD Procedure Analyst: Dmitry Palumbo MD Procedure Details Informed consent [...] portions of the procedure. Authorizing ProviderResult TypeResult StatusDobuster Lundberg MDENDOSCOPY PROCEDURE ORDERABLESFinal Result * FL AN ELECTIVE ENDOTRACHEAL AIRWAY (06/03/2025 10:30 AM EST) Angel Westfall CAA - 06/03/2025 10:30 AM EST GRACIELA Rodríguez 06/03/2025 10:40 AM Airway Date/Time: 06/03/2025 10:30 AM Reason: elective General Information and Staff Patient location during procedure: OR Anesthesiologist: Isabella Yeboah MD Resident/LARD MAKER/CAA: GRACIELA Rodríguez Performed: resident/LARD MAKER/GRACIELA Patient Condition Indications for airway management: anesthesia [...] other approaches attempted: 0 Authorizing ProviderResult TypeResult StatusSarakenji Yeboah MDANESTHESIA ORDERABLES Final Result * POCT glucose meter (06/03/2025 8:12 AM EST)ComponentValueRef RangeTest Method Analysis TimePerformed AtPathologist SignatureGlucose OCS4115 - 105 mg/dL 06/03/2025 8:23 AM [facility])Comment:aclementSpecimen (Source)Anatomical Location / LateralityCollection Method / VolumeCollection TimeReceived TimeBloodCapillary blood specimen / Pdnfevb1806/03/2025 8:12 AM EST 06/03/2025 8:23 AM EST Narrative [facility] - 06/03/2025 8:23 AM EST Waived Testing in the ED is performed under the ED CLIA certificate #[id number]. Authorizing ProviderResult TypeResult StatusChantell Lopez MDLAB BLOOD ORDERABLES Final ResultPerforming OrganizationAddressCity/State/ZIP CodePhone Number [facility] [address] [place] [address] from Last 3 Months Insurance Care Teams Team MemberRelationshipSpecialtyStart Date Sandeep Lundberg MD [address] [facility] [place] [address] PCP - GeneralFamily Cgaqaqin60/27/25
--- OUTSIDE RECORDS SUMMARY | 2025-06-04 14:51 | XMS_ITS | Encounter Summary ---
Author Organization [facility] Address [address] [place] [address] Care Team Providers Care Belt Sander Name Role Phone Sandeep [place]berg MD Primary Care Provider [phone] Encounter Details DateTypeDepartmentCare Team (Latest Contact Info)Iksghhgtxay69/18/2025Bamboo flowsheet [facility] [place] [facility] [address] [place] [address] Jennifer Jennings PA [address] [place], [place] [address] Social History Tobacco UseTypesPacks/DayYears UsedDateSmoking Tobacco: NeverCommentsNo Sex and Gender InformationValueDate RecordedSex Assigned at BirthFemale 05/23/2023 3:53 PM ESTLegal KytBtrkzl43/15/2023 8:13 PM EDTGender IdentityFemale 05/23/2023 3:53 PM ESTSexual GyeilggdocwUcbahrlo34/08/2023 3:53 PM ESTdocumented as of this encounter Plan of Treatment DateTypeDepartmentCare Team (Latest Contact Info)Xfdniddbcth18/23/2026 9:00 AM ESTProcedure Visit [facility] [place] [facility] [address] [place] [address] Jennifer Jennings, PA [address] [place] [address] documented as of this encounter Visit Diagnoses Not on filedocumented in this encounter Care Teams Team MemberRelationshipSpecialtyStart DateEnd Date Sandeep Lundberg MD [address] [facility] [place] [phone] PCP - GeneralFamily Agpzaezr11/9/23documented as of this encounter
--- OUTSIDE RECORDS SUMMARY | 2025-06-04 14:51 | XMS_ITS | Encounter Summary ---
Author Organization [facility] Address [address] [facility] [place] [address] Care Team Providers Care Family Day Care Provider Name Role Phone Sandeep Lundberg MD Primary Care Provider [phone] Encounter Details DateTypeDepartmentCare Team (Latest Contact Info)Acgrtvtqtrr29/12/2025Travel Social History Tobacco UseTypesPacks/DayYears UsedDateSmoking Tobacco: NeverCommentsNo Sex and Gender InformationValueDate RecordedSex Assigned at BirthFemale 05/23/2023 3:53 PM ESTLegal GnqDaatfg06/15/2023 8:13 PM EDTGender IdentityFemale 05/23/2023 3:53 PM ESTSexual ExhhuyzbfahDvodlthc57/08/2023 3:53 PM ESTdocumented as of this encounter Plan of Treatment DateTypeDepartmentCare Team (Latest Contact Info)Hsemkvnqrhd34/23/2026 9:00 AM ESTProcedure Visit [facility] [place] [facility] [address] [facility] [place] [phone] Jennifer Jennings PA [address] [place] [address] documented as of this encounter Visit Diagnoses Not on filedocumented in this encounter Care Teams Team MemberRelationshipSpecialtyStart DateEnd Date Sandeep Lundberg MD [address] [place] [address] PCP - GeneralFamily Tphciiea93/9/23documented as of this encounter
--- OUTSIDE RECORDS SUMMARY | 2025-06-04 14:51 | XMS_ITS | Encounter Summary ---
Author Organization [facility] Address [address] [place] [address] Care Team Providers Care Supervisor Dumping Name Role Phone Sandeep [place] MD Primary Care Provider [phone] Encounter Details DateTypeDepartmentCare Team (Latest Contact Info)Eszqvjraohs53/20/2025Telephone [facility] [address] [place] [address] Monique Morales RN Social History Tobacco UseTypesPacks/DayYears UsedDateSmoking Tobacco: NeverSmokeless Tobacco: NeverCommentsUnknownSex and Gender InformationValueDate RecordedSex Assigned at XhupsHdmmii85/19/2025 7:46 AM ESTLegal SkhCcrxut72/27/2025 5:11 PM EDTGender GdtjciihVfsxug57/19/2025 7:46 AM ESTSexual OrientationHeterosexual or Ljyuhapm96/19/2025 7:46 AM ESTdocumented as of this encounter Miscellaneous Notes * Telephone Encounter - Monique Morales RN - 06/04/2025 8:11 AM EST ERCP procedure note from 06/03/[address] Chantell Lopez faxed to referring office of Dr. [place] at [phone]. documented in this encounter Plan of Treatment Not on file documented as of this encounter Visit Diagnoses Not on filedocumented in this encounter Care Teams Team MemberRelationshipSpecialtyStart DateEnd Date Sandeep Lundberg MD [address] [place], [place] [address] [place] [address] PCP - GeneralFamily Hvxxincm03/27/25documented as of this encounter
--- OUTSIDE RECORDS SUMMARY | 2025-06-04 14:52 | XMS_ITS | Clinical Summary ---
Author Organization [employer] Address [id number] [place] [address] Care Team Providers Care Frame Coverer Name Role Phone Sandeep [place] MD Primary Care Provider [phone] Social History Tobacco UseTypesPacks/DayYears UsedDateSmoking Tobacco: Never Assessed CommentsUnknownSex and Gender InformationValueDate RecordedSex Assigned at Not on fileLegal OonYceotu60/28/2024 1:33 PM EDTGender IdentityNot on fileSexual OrientationNot on file Plan of Treatment Health MaintenanceDue DateLast DoneCommentsDepression Zepsnyuys08/23/1979Tobacco Scdluekrh26/23/1979Adult BMI Wfjnjmggh79/23/1985DTaP,Tdap and Td Vaccines (1 - Tdap)1986Pap Smear01/06/1988Zoster (Shingles) Vaccine (1 of 2)2017 Influenza Evllwmg5203/16/2025 Medical Devices Not on file Insurance Care Teams Team MemberRelationshipSpecialtyStart DateEnd Date Sandeep Lundberg MD [address] [place] [address] PCP - [facility] Ohcpeggn19/28/24
--- OUTSIDE RECORDS SUMMARY | 2025-06-04 14:52 | XMS_ITS | Clinical Summary ---
Author Organization [facility] Address [address] [address] Phone Care Team Providers Care Lining Ironer Name Role Phone Sandeep Lundberg MD Primary Care Provider [phone] Allergies Active AllergyReactionsCriticalityNoted IiewKmxmalplMdfycgcejvrGjamQtb93/06/2023 KierkngDnyjnpcBpv20/23/2024 Medications No known medications Social History Tobacco UseTypesPacks/DayYears UsedDateSmoking Tobacco: Never Assessed CommentsUnknownSex and Gender InformationValueDate RecordedSex Assigned at Not on fileLegal EzkOqmcxu16/25/2022 12:01 PM ESTGender IdentityNot on file Sexual OrientationNot on file Last Filed Vital Signs Vital SignReadingTime TakenCommentsBlood Ecdjeopk978/9401 10:27 AM EST Kdbvd373908/07/2023 10:27 AM SXUXkkhhdupwlq72.7 ??C (98.1 ??F)08/07/2023 8:01 AM ESTRespiratory Ujci550908/07/2023 8:01 AM ESTOxygen Xddlzzohhs17%08/07/2023 10:27 AM ESTInhaled Oxygen Concentration--Iuayle54.6 kg (180 lb)08/07/2023 8:01 AM EST Ynsnel427.6 cm (5' 6 )08/07/2023 8:01 AM ESTBody Mass Index29.05008/07/2023 8:01 AM EST Plan of Treatment Health MaintenanceDue DateLast DoneCommentsCT Uqqozclthzby1967Colonoscopy 1967Colorectal Cancer Dkdmnyetm1967FIT-DNA (Cologuard)1967FIT 1965HIV Ymfotuzag1967Lipid Panel1965 3407Xlrtevaasmozw1967MMR Vaccines (1 of 1 - Standard series)01/06/1968Hepatitis C Mvhuhtikx04/23/1985 Hepatitis B Vaccines (1 of 3 - 19+ 3-dose series)1986Cervical Cancer Mpertrvzs50/23/1988HPV/Sxpjwh9201/06/1988Pap Smear01/06/1988DTaP/Tdap/Td Vaccines (1 - Tdap)01/05/19896595Kwadmnsux74/23/2007Pneumococcal Vaccine (1 of 1 - PCV) 2017Zoster Vaccines (1 of 2)2017Yearly Adult Hruflqad16/10/2024 05/24/2023Influenza Vaccine (#1)5COVID-19 Vaccine (3 - season) 509/, 1Diabetes Yetvupxpe74/23/59543908/07/2023HIB VaccinesAged OutNo longer eligible based on patient's [...] this topic Procedures Procedure NamePriorityDate/TimeAssociated DiagnosisCommentsCOMPREHENSIVE METABOLIC BKHKGSFQF79/23/2024 8:29 AM EST from Last 3 Months or Most Recently Relevant to Health Maintenance Results * (ABNORMAL) Comprehensive metabolic panel (08/07/2023 8:29 AM EST)Component ValueRef RangeTest MethodAnalysis TimePerformed AtPathologist SignatureGlucose 108(H)74 - 99 mg/dL LAB CHEMISTRY METHOD 08/07/2023 9:00 [facility] [place] MTPGyyuxy407597 - 145 mmol/L LAB CHEMISTRY METHOD 08/07/2023 9:00 AM [facility] LABPotassium3.83.5 - 5.3 mmol/L LAB CHEMISTRY METHOD 08/07/2023 9:00 AM [facility] [place] XHKVrtyrepw87674 - 107 mmol/L LAB CHEMISTRY METHOD 08/07/2023 9:00 AM [facility] [place] JNRMyafrvjvgjb2405 - 32 mmol/L LAB CHEMISTRY METHOD 08/07/2023 9:00 AM [facility] [place] LABAnion Oxs8591 - 20 mmol/L LAB CHEMISTRY METHOD 08/07/2023 9:00 AM [facility] [place] LABUrea Cbylyxqw594 - 23 mg/dL LAB CHEMISTRY METHOD 08/07/2023 9:00 AM [facility] LABCreatinine0.750.50 - 1.05 mg/dL LAB CHEMISTRY METHOD 08/07/2023 9:00 AM [facility] [place] LABeGFR>90>60 mL/min/1.73m*2 LAB CHEMISTRY METHOD 08/07/2023 9:00 AM [facility] LABComment: Calculations of estimated GFR are performed using the 2020 CKD-EPI Study Refit equation without therace variable for the IDMS-Traceable creatinine methods. https://jasn.asnjournals.org/content///ASN.5985394894 Calcium9.48.6 - 10.3 mg/dL LAB CHEMISTRY METHOD 08/07/2023 9:00 AM [facility] [place] LABAlbumin4.73.4 - 5.0 g/dL LAB CHEMISTRY METHOD 08/07/2023 9:00 AM [facility] [place] LABAlkaline Byfqdlxakqe1089 - 110 U/L LAB CHEMISTRY METHOD 08/07/2023 9:00 AM [facility] [place] LABTotal Protein7.86.4 - 8.2 g/dL LAB CHEMISTRY METHOD 08/07/2023 9:00 AM [facility] SAJLYA437 - 39 U/L LAB CHEMISTRY METHOD 08/07/2023 9:00 AM [facility] [place] LABBilirubin, Total0.50.0 - 1.2 mg/dL LAB CHEMISTRY METHOD 08/07/2023 9:00 AM [facility] [place] QHFIFJ742 - 45 U/L LAB CHEMISTRY METHOD 08/07/2023 9:00 AM [facility] [place] LABComment:Patients treated with Sulfasalazine may generate falsely decreased results for ALT.Specimen (Source) Anatomical Location / LateralityCollection Method / VolumeCollection Time Received TimeBloodVenous blood specimen / UnknownVenipuncture / Unknown 08/07/2023 8:29 AM EST08/07/2023 8:34 AM EST Narrative Authorizing ProviderResult TypeResult StatusAngela C Sales DOLAB BLOOD ORDERABLESFinal ResultPerforming OrganizationAddressCity/State/ZIP CodePhone Number [facility] [address] [phone] from Last 3 Months or Most Recently Relevant to Health Maintenance Insurance * Guarantor: Leida Rodriguez TypeRelation to PatientDate of BirthPhone Billing AddressPersonal/OcrykaKldt1965 [address] [phone] * Guarantor: Leida Rodriguez TypeRelation to PatientDate of BirthPhone Billing AddressPersonal/SgbkrkMnct1965 [address] [phone] * Guarantor: Leida Rodriguez TypeRelation to PatientDate of BirthPhone Billing AddressPersonal/DymtwzIabd1965 [address] [address] Care Teams Team MemberRelationshipSpecialtyStart DateEnd Sandeep Lundberg MD [address] [facility] [place] [address] PCP - General09/06/09
[2025-06-04 14:55] LABS: Alanine Aminotransferase 48 U/L (14-59); Albumin Globulin Ratio 1.3; Albumin Level 4.3 g/dL (3.4-5.0); Alkaline Phosphatase 80 U/L (46-116); Amylase 49 U/L (25-115); Aspartate Amino Transferase 30 U/L (15-37); Globulin 3.4 g/dL; Lipase 32.0 U/L (16.0-77.0); Total Protein 7.7 g/dL (6.4-8.2)
--- OUTSIDE RECORDS SUMMARY | 2025-06-04 14:57 | XMS_ITS | CCD ---
Author Organization [facility] CliniSyne Care Team Providers Care Service Delivery Management Consultant Name Role Phone SAULO, DR CAMERON Primary [...] Rakesh Vernon MD Primary Care Provider [phone] RAKESH VERNON Primary Care Unavailable SHEN DENNISON Attending Unavailable Rakesh Vernon MD Primary Care Provider [phone] DAVE FRANCIS Attending Unavailable BREANN BRISCOE Attending Unavailable Kana Montilla Attending Unavailable Kana Montilla Admitting Unavailable Rakesh Vernon Primary Care Unavailable Rakesh Vernon MD Unavailable Rakesh Vernon MD Primary Care Provider [phone] Rakesh Vernon MD Primary Care Provider [...] Provider Rakesh Vernon MD Primary Care Provider [phone] Allergies Allergy ClassificationReported Allergen(s)Allergy TypeDate of OnsetReaction(s) Facility (4 sources)Codeine; Translations: [CODEINE]Drug Fitduqj58-76-7970WetcceviMyz [facility] Repository (1 source)diphenhydrAMINEDrug Cniqcxa38-99-4327[facility] (2 sources)ErythromycinDrug Emgjkbo32-12-2586WhutsbUog [facility] Repository (10 sources)Penicillins; Translations: [PENICILLINS]Drug allergy (disorder) 48-68-3266XapgcgknsssBer[facility] Rep[facility] (1 source)PenicillinDrug AllergyAdventHealth [facility] Other (12 sources)Amoxicillin; Translations: [AMOXICILLIN]Drug Bkurxqz79-19-0250NjfuMemorial Health [facility] (11 sources)CodeineDrug Tdpwbey08-60-3695Cwodjxo, Other: See Misti, Anila [facility] Work Phone: (1 source)CodeineDrug Nebpxhw24-11-4367TtaavkmgdTrumbull Memorial Hospital Repository (1 source)ErythromycinDrug Hnylvxg60-59-6008JsflskvylTrumbull Memorial Hospital Repository (1 source)PenicillinsDrug allergy (disorder)30-97-5403GidthpcexTrumbull Memorial Hospital Repository (2 sources)PenicillinsDrug Beuxdhc02-55-1273Cnuqncombrr, [facility] (1 source)PenicillinsDrug Vqccbti61-38-9769Upszttbzqdk, [facility] Medications Current Medications MedicationDrug Class(es)DatesSig (Normalized)Sig (Original)acetaminophen 325 mg / HYDROcodone bitartrate 5 mg oral tablet (3 sources)Opioid AgonistStart: 09-30-2024 End: 39-59-2925lzqq 1 tablet by mouth every six hours as needed for pain HYDROcodone-acetaminophen (NORCO) 5-325 mg per tablet Indications: Post-op pain Take 1 tablet by mouth every 6 hours as needed for pain for up to 3 days. 12 tablet 09/30/2024 10/03/2024 ActiveStart: 09-30-2024 End: tablet, ORAL, NEEDED, 1 dose, Starting on Sun09/30/24 at 1012, Until Sun09/30/24 at 1047, Moderate Pain (4-6) - Vapzznrgxl070720 200 actuat albuterol 0.09 mg/actuat metered dose inhaler (11 sources)beta2-Adrenergic AgonistStart: 05-49-1859ecuz 2 puff(s) by inhalation every four hours as neededalbuterol HFA (VENTOLIN HFA) 90 mcg/actuation inhaler Inhale 2 Puffs as instructed every 4 hours asneeded. 02/13/2024 ActiveStart: 06-10-2020 End: 50-40-4336etfu 1 puff(s) by inhalation every four hours as neededAlbuterol Sulfate 90 mcg/actuation HFA aerosol inhaler Discontinued 1 - 2 PUFF INHALATION Q4H as needed for Shortness Of Breath June 10, 2020 1:00am June 04, 2024 8:43amcyclobenzaprine hydrochloride 10 mg oral tablet (1 source)Muscle RelaxantStart: 58-73-0203gzvk 1 tablet by mouth every eight hours as needed for painCyclobenzaprine HCl 10 MG 1 tablet Orally every 8 hours prn back pain for 5 days Dec, ActiveFLUoxetine 10 mg oral capsule (20 sources)Serotonin Reuptake InhibitorStart: 33-54-7391mmmb 1 capsule by mouth once dailyFluoxetine 10 mg capsule Active 10 MG PO Daily June 04, 2024 1:00am FreeTextSig: Oral; Note: Source Status: Taking; Qty: 90 Capsule; Provider: Ginna Kirby ( ) Complies with drug zyiwecb17 actuat fluticasone furoate 0.1 mg/actuat / umeclidinium 0.0625 mg/actuat / vilanterol 0.025 mg/actuat dry powder inhaler (4 sources)Anticholinergic, Corticosteroid, beta2-Adrenergic AgonistStart: 06-09-2024 End: 38-48-3680axbz 1 puff(s) by inhalation once daily Vwanzblinro-Brhamedux-Npjzbd (Trelegy Ellipta) 100-62.5-25 MCG/ACT aerosol powder Indications: Wheeze Inhale 1 puff Daily 1 each 06/09/2024 06/09/2025 Miuvsw73 actuat formoterol fumarate 0.005 mg/actuat / mometasone furoate 0.1 mg/actuat metered dose inhaler (10 sources)Corticosteroid, beta2-Adrenergic AgonistStart: 08-12-2024 End: 73-43-5525epsf 2 puff(s) by inhalation twice dailymometasone-formoterol (DULERA) 100-5 mcg/actuation inhaler Indications: Severe persistent asthma wit hout complication (HCC) Inhale 2 Puffs as instructed two times a day. 13 g 2 08/12/2024 11/10/2024 Activelevothyroxine sodium 0.125 mg oral tablet (20 sources)l-ThyroxineStart: 99-20-9906nmxi 1 tablet by mouth once daily Levothyroxine 125 mcg tablet Active 125 MCG PO Daily February 18, 2025 12:00am Complies with drug therapyStart: 06-10-2020 End: 01-33-1193kymp 1 tablet by mouth once dailyLevothyroxine 150 mcg tablet Discontinued 150 MCG PO Daily June 10, 2020 1:00am February 18, 2025 10:24amLevothyroxine Sodium 125 MCG Oral for 90 Days Activelisinopril 10 mg oral tablet (20 sources)Angiotensin Converting Enzyme InhibitorStart: 46-07-0320tzvb 1 tablet by mouth in the morninglisinopril 10 MG tablet Take 10 mg by mouth in the morning. 05/11/2023 ActiveLisinopril 10 MG Oral for 90 Days Activemodafinil 200 mg oral tablet (20 sources)Sympathomimetic-like AgentStart: 12-31-2024 End: 12-21-1901tznm 1 tablet by mouth once daily in the morningModafinil 200 mg tablet Active 200 MG PO Daily February 18, 2025 11:45am FreeTextSig: TAKE 1 TABLET BY MOUTH IN THE MORNING daily Oral; Note: Source Status: Taking; Refills: 1; Qty: 30 Each; Provider: PENNY ACOSTA Complies with drug therapy Start: 93-68-4196fgfs 1 tablet by mouth once dailymodafinil (Provigil) 200 MG tablet Indications: Hypersomnia Take 1 tablet (200 mg) by mouth Daily 30 tablet 2 07/02/2024 ActiveStart: 04-19-2023 End: 30-26-6946fygg 1 tablet by mouth once daily in the morningModafinil 200 mg tablet Discontinued 200 MG PO Daily June 04, 2024 1:00am December 31, 2024 4:01pm FreeTextSig: TAKE 1 TABLET BY MOUTH IN THE MORNING daily Oral; Note: Source Status: Taking; Refills: 1; Qty: 30 Each; Provider: PENNY ACOSTA Completed/Discontinued Medications MedicationDrug Class(es)DatesSig (Normalized)Sig (Original)acetaminophen 325 mg oral tablet (2 sources)Start: 09-30-2024 End: 98-86-3824240 mg, ORAL, NEEDED, 1 dose, Starting on Sun09/30/24 at 1012, Until Sun10/01/24 at 0303, Mild Pain (1-3) - Enteral, If ordered PRN for pain, patient/guardian may elect to receive this medication for higher pain levels INSTEAD of the opioid, if preferred: YesStart: 09-30-2024 End: ,000 mg, ORAL, DIRECTED, Starting on Sun09/30/24 at 0800, Until Sun09/30/24 at 0959, pre o[ med, GrkpbfuqoyymOix9846-Nqz Nph-Nbak-Yvn-Asb-C (1 source)Osmotic Laxative, Vitamin CStart: 05-21-2024 End: 45-66-7312Ohi5890-Sod Fof-Nqgm-Dsi-Asb-C (Plenvu) 140-9-5.2 gram powder in packet, sequential [...] meq/ml injectable solution (2 sources)Start: 09-30-2024 End: 66-56-7671mdgb 30 mL intravenously every hour30 mL/hr, INTRAVENOUS, CONTINUOUS, Starting on Sun09/30/24 at 1030, Until Sun10/01/24 at 0303codeine phosphate 2 mg/ml / promethazine hydrochloride 1.25 mg/ml oral solution (1 source)Opioid Agonist, PhenothiazineStart: 06-10-2020 End: 34-59-4913xjdy 1 mL by mouth every six hours as needed for cough Promethazine-Codeine 6.25-10 mg/5 mL syrup Discontinued 10 ML PO Q6H as needed for cough 120 4 June 10, 2020 1:00am June 04, 2024 8:44am diphenhydrAMINE (1 source)Histamine-1 Receptor AntagonistStart: 09-30-2024 End: 38-22-177815 mg, INTRAVENOUS, NEEDED, 1 dose, Starting on Sun09/30/24 at 1012, Until Sun10/01/24 at 0303, Nausea/Vomiting - Second Line - Parenteral1 ml fentaNYL 0.05 mg/ml injection (2 sources)Opioid AgonistStart: 09-30-2024 End: 87-11-648460 mcg, INTRAVENOUS, NEEDED, Starting on Sun09/30/24 at 1012, Until Sun10/01/24 at 0303, FIRST LINE THERAPY for moderate or severe pain, FIRST LINE THERAPY Every5-10 minutes, To a Maximum Total Dose of 250 mcg Hold for respiratory rate less than 10 USE FOR MODERATE PAIN ONLY IF PATIENT IS UNABLETO TOLERATE ORAL THERAPYStart: 08-07-2023 End: 46-06-4443hunltSGM PF (Sublimaze) injection 50 mcghydroCHLOROthiazide 25 mg oral tablet (1 source)Thiazide DiureticStart: 06-10-2020 End: 12-55-7074snaj 1 tablet by mouth once dailyHydrochlorothiazide 25 mg tablet Discontinued 25 MG PO Daily June 10, 2020 1:00am June 04, 2024 8:44amKetorolac Tromethamin (1 source)Start: 44-79-6160Bqqustzxl Tromethamin Dec, 60 mglevoFLOXacin 750 mg oral tablet (1 source)Quinolone AntimicrobialStart: 06-10-2020 End: 37-92-7734miot 1 tablet by mouth once dailyLevofloxacin 750 mg tablet Discontinued 750 MG PO Daily June 10, 2020 1:00am June 04, 2024 8:43am1 ml meperidine hydrochloride 50 mg/ml cartridge (1 source)Opioid AgonistStart: 09-30-2024 End: 04-01-916513.5 mg, INTRAVENOUS, EVERY 10 MINUTES NEEDED, 2 doses, Starting on Sun09/30/24 at 1012, Until Sun10/01/24 at 0303, for shivering, May Repeat 12.5 mg in 10 minutes X1 for Continued ShiveringpredniSONE 10 mg oral tablet (1 source)Start: 06-10-2020 End: 39-58-9113yexq 5 tablets by mouth once dailyPrednisone 10 mg tablet Discontinued 50 MG PO Daily June 10, 2020 1:00am June 04, 2024 8 :43am dose packpromethazine hydrochloride 12.5 mg oral tablet (1 source)PhenothiazineStart: 09-30-2024 End: 26-71-9199enxa 1 dose by mouth once12.5 mg, ORAL, ONCE, 1 dose, On Sun09/30/24 at 0800, PreprocedureStart: 09-30-2024 End: 22-64-9965bflc 1 dose by mouth once12.5 mg, ORAL, ONCE, 1 dose, On Sun09/30/24 at 0800, Preprocedure0.25 mg, 0.5 mg dose 1.5 ml semaglutide 1.34 mg/ml pen injector (5 sources) End: 49-85-7698guarhofpgpo (Ozempic) 2 MG/1.5ML solution pen-injector Inject under the skin 06/09/2024 DiscontinuedSemaglutide (1 source)Start: 02-18-2025 End: 06-55-8025fntvzp 2 mg by subcutaneous injection every weekSemaglutide 2 mg/dose (8 mg/3 mL) pen injector Discontinued 2 MG SUBCUT every week February 182:00am February 18, 2025 11:24am Problems Active Problems Problem ClassificationProblemDateDocumented DateEpisodic/ChronicAsthma (9 sources)Uncomplicated severe persistent asthma; Translations: [Severe persistent asthma, uncomplicated]Onset: 326909-56-4527RjscvyjKngqvwh tract disease (11 sources)Cholelithiasis without obstruction; Translations: [Calculus of gallbladder without cholecystitis without obstruction]Onset: 09-15-2024 39-99-6064JqwbhddxZerdtexxh of lipid metabolism (8 sources)Hyperlipidemia, unspecified; Translations: [Pure hypercholesterolemia]Onset: 107501-80-8880PdfywreEgpqfubof hypertension (8 sources)Hypertensive disorder; Translations: [Essential (primary) hypertension]Onset: 298004-78-1402AoblncyCldvkkg and fatigue (1 source)Other fatigue; Translations: [OTHER FATIGUE]Onset: 82-21-4859Axaiflda Nutritional deficiencies (1 source)Vitamin D deficiency, unspecified; Translations: [VITAMIN D DEFICIENCY UNSPECIFIED]Onset: 77-55-8750UkxmwztCmchq gastrointestinal disorders (1 source)Change in bowel habit; Translations: [Change in bowel habit]Onset: 91-93-5892YsaafzlcJqhub injuries and conditions due to external causes (1 source)Closed injury of head; Translations: [Unspecified injury of head, initial encounter]98-58-3430FkbdhyoxDyoqr lower respiratory disease (4 sources)Snoring; Translations: [Snoring]75-47-3506PahzfywjGiwbl lower respiratory disease (2 sources)Wheezing; Translations: [Wheezing]63-36-8613MzhkmsbvLsfjc lower respiratory disease (1 source)Dyspnea; Translations: [Shortness of breath]62-82-7816NpkzgxmaVyyrg nervous system disorders (1 source)Narcolepsy; Translations: [Narcolepsy without cataplexy]12-31-2024 ChronicOther nervous system disorders (1 source)Postoperative pain ; Translations: [Other acute postprocedural pain] 00-42-1095PzarnyfcJwmcw upper respiratory disease (2 sources)Chronic rhinitis; Translations: [Chronic rhinitis]18-79-1241Sshlxnq Other upper respiratory infections (2 sources)Recurrent sinusitis; Translations: [Chronic sinusitis, unspecified] 10-41-7695SdcdsdxOwqabwmw codes; unclassified (4 sources)Hypersomnia; Translations: [Hypersomnia, unspecified]04-16-2024 ChronicResidual codes; unclassified (4 sources)Obstructive sleep apnea syndrome; Translations: [Obstructive sleep apnea (adult) (pediatric)]36-43-2479DeugaeoQjtsjquf codes; unclassified (7 sources)Sleep apnea; Translations: [Sleep apnea, unspecified]Onset: 286236-07-4629VthemxuIrrghiiz codes; unclassified (2 sources)Daytime somnolence; Translations: [Other hypersomnia]02-18-2025 ChronicResidual codes; unclassified (2 sources)Amnesia; Translations: [Other amnesia]94-87-5547DadhiozsKnaztslv codes; unclassified (1 source)Postoperative state; Translations: [Other specified postprocedural states]66-18-8264WyzwyrrsMpmzwav and strains (1 source)Strain of muscle, fascia and tendon of lower back, initial encounter EpisodicThyroid disorders (8 sources)Hypothyroidism, unspecified; Translations: [Hypothyroidism]Onset: 121623-84-0911UspjdnnZdfsgwmrduqg (3 sources)CONTACT W/AND (SUSP) EXPOS COVID-19; Translations: [CONTACT W/AND (SUSP) EXPOS COVID-19]Onset: 40-29-6809Jczaqgiamxvi (1 source)COUGH, UNSPECIFIED; Translations: [COUGH, UNSPECIFIED]Onset: 52-92-3395Mqzrm infection (1 source)Disease caused by 2019-nCoV; Translations: [COVID-19]06-10-2020 Episodic Past or Other Problems Problem ClassificationProblemDateDocumented DateEpisodic/ChronicE Codes: Fall (3 sources)Fall; Translations: [Unspecified fall, initial encounter]Onset: 965906-14-8237QuhbohczPvsdovcuyjbmf and screening for infectious disease (1 source)Encounter for screening for human papillomavirus (HPV); Translations: [ENC SCREENING HUMAN PAPILLOMAVIRUS]Onset: 05-44-4360AuudzqdhAvtvs circulatory disease (1 source)Other specified symptoms and signs involving the circulatory and respiratory systems; Translations:[OTH SPEC SX SIGNS INVLV CIRC RS]Onset: 04-41-6521XdvoahnyYodfy injuries and conditions due to external causes (2 sources)Unspecified injury of head, initial encounter; Translations: [Unspecified injury of head, initial encounter]Onset: 29-10-6714LqzvnvsrAywkz screening for suspected conditions (not mental disorders or infectious disease) (4 sources)Encounter for screening for malignant neoplasm of cervix; Translations: [ENC SCREENING MALIG NEOPLASM CERV]Onset: 56-36-5485Bzmgicns Unclassified (1 source)CONTACT W/AND (SUSP) EXPOS COVID-19; Translations: [CONTACT W/AND (SUSP) EXPOS COVID-19]Onset: 01-04-2022 Results Test NameValueInterpretationReference PyzyoEkmjvqec80mm 02-29-394152Ukkochfab ERCP/Gallbladder duct stone 06/03/25 @0930, [facility], Dr. Lopez. Ref in media 05/11/25, Dr. Vernon.[facility] HospitalTelephoneon [id number] Praveena Dacosta 1965 F Date Provider Department Center 05/22/2025 [facility] GEORGEJulia No family history on fileNormalUniversLicking Memorial HospitalCNOVon 32-73-0329WJUVAfvftg Visit (LEIDY) PRAVEENA DACOSTA ([id number]) 1965 F Date Time Provider Department 10/16/24 [...] III, MD Referring Provider: JONO GONZALEZ III [[id number]] Allergies As of Date: 10/16/2024 Noted Allergy [...] Encounter Status:Closed by JONO GONZALEZ III on 10/16/24NoJ.W. Ruby Memorial HospitalPNon 09-59-5219OPWTWaeblctgl (GENSAV) PRAVEENA DACOSTA ([id number]) 1965 F Date Time Provider Department 10/02/24 [...] 09/15/2024 Encounter Status:Closed by SHWETA HSU on 10/02/24[facility] POSTPROC EVALon 33-09-2378DZKJ POSTPROC EVALHNO ID: [id number] Author: GALEN MOON MD Service: Anesthesiology Author Type: Anesthesiologist Type: Anesthesia Postprocedure Evaluation Filed: 09/30/2024 10:42 Note Text: POST ANESTHESIA EVALUATION NOTE : 1965 Procedure Summary Date: 09/30/24 Room / Location: [address] Anesthesia Start: 911 Anesthesia Stop: 958 [...] September 30, 2024 TIME: 10:41 AM CSN: [id number] Memorial Hospital PRE-OPon 46-70-0192JXEH PRE-OPHNO ID: [id number] Author: GALEN MOON MD Service: Anesthesiology Author Type: Anesthesiologist Type: Anesthesia Preprocedure Evaluation Filed: 09/30/2024 08:06 Note Text: ANESTHESIOLOGY DAY OF SURGERY NOTE : 1965 Procedure Information Date/Time: 09/30/24829 Procedure: LAPAROSCOPIC CHOLECYSTECTOMY WITH GRAMS (Gallbladder) Location: [place] [address] / [facility] Surgeons: Jono Gonzalez III, MD Estimated body [...] September 30, 2024 TIME: 8:06 AM CSN: [id number] Clinic Mentor HospitalEC COMPLETEon 54-41-4158YSW COMPLETEVentricular Rate : 56 BPM Atrial Rate : 56 BPM P-R Interval : 166 ms QRS Duration : 78 ms Q-T Interval : 446 ms QTC Calculation(Bazett) : 430 ms Calculated P [place] : 20 degrees Calculated R [place] : 46 degrees Calculated T [place] : 21 degrees SINUS BRADYCARDIA OTHERWISE NORMAL ECG Confirmed by JAMISON KEY DO ([id number]) on 10/05/2024 10:51:14 AM NAME : PRAVEENA DACOSTA PID : [id number] : 1965 Gender : Female Race : Unknown ORD : [id number] Procedure Date : Sep 30 2024 10:28:37 [...] III [facility] : [facility] PHYSICALon 09-30-2024 HISTORY PHYSICALHNO ID: [id number] Author: JONO GONZALEZ III, MD Service: General [...] Dacosta DATE: September 30, 2024 TIME: 8:39 AMNormalMagruder Memorial HospitalOPERATIVE NOon 60-63-3161UEWDWQDJP NOHNO ID: [id number] Author: JONO GONZALEZ III, MD Service: General Surgery Author Type: Physician Type: Operative Report Filed: 09/30/2024 09:46 Note Text: OPERATIVE REPORT LOG ID: [id number] SURGERY/PROCEDURE DATE: 09/30/2024 INCISION/PROCEDURE START TIME: 9:27 AM INCISION CLOSE/PROCEDURE END TIME: 9:44 AM SURGEON: Jono Gonzalez III, MD HOOP COILING MACHINE OPERATOR: Yesenia Monson PA-C OPERATION: Laparoscopic cholecystectomy (95322). ANESTHESIA: GETA and 20 mL of 0.5% [...] Dacosta DATE: September 30, 2024 TIME: 9:45 AMNormalMagruder Memorial HospitalPathology biopsy report Bobo (Tiss) on 11-84-3230CT DISCLAIMERNormalCCleveland Clinic Mentor HospitalComment on above:Order Comment: Specimen Type: TISSUE SPECIMENOrdering Facility: [facility] Address: [address] [place], [place] [address]Grjenu Comment: Laboratory Developed Test (LDT) Disclaimer: Performance characteristics of immunohistochemical, immunofluorescent, and chromogenic in-situ hybridization tests have been determined by the performing laboratory within [facility]'s Willy Nikkie [facility]julio Pathology and Laboratory Medicine Department ([facility], [facility], [facility], [facility], [facility], [facility], or [facility]) in a manner consistent with CLIA requirements. One or more of these tests may not have been cleared or approved by the FDA. [facility] is regulated under CLIA as qualified to perform high- complexity testing. These tests are used for clinical purposes. These should not be regarded asinvestigational or for research. Positive and negative controls stain appropriately.Performed By: #### 29306-5 ####[facility] LABCLIA [id number] [address]CASE REPORTNoCity Hospital on above:Order Comment: Specimen Type: TISSUE SPECIMENOrdering Facility: [facility] Address: [address] [place] [address] Comment: Surgical Pathology Report Case: [id number] Authorizing Provider: Jono Gonzalez III, MD Collected: 09/30/2024 09:31 AM Ordering Location: Ambulatory Surgery Received: 09/30/2024 10:52 AM Pathologist: Darcy Hernández MD, PhD Specimen: GallbladderPerformed By: #### [id number] ####[facility] LABIA [id number] [address]CLINICAL HISTORYNoCity Hospital on above:Order Comment: Specimen Type: TISSUE SPECIMENOrdering Facility: [facility] Address: [address] [place], [place] [address]Result Comment: Pre-op diagnosis: Calculus of gallbladder without cholecystitis without obstruction [K80.20] Performed By: #### 95242-9 ####[facility] LABIA [id number] [address] FINAL DIAGNOSISNoCity Hospital on above:Order Comment: Specimen Type: TISSUE SPECIMENOrdering Facility: [facility] Address: [address] [place], [place] [address]Result Comment: A. Gallbladder, cholecystectomy: - Chronic cholecystitis with cholelithiasis and cholesterolosis. at 1550 EDTPerformed By: #### 90086-8 ####[facility] LABCLIA [id number] [address] [address] [place] OF [facility] MEDICAL CENTERFINAL PERFORMING LAB NormalTrumbull Regional Medical Center on above:Order Comment: Specimen Type: TISSUE SPECIMENOrdering Facility: [facility] Address: [address] [place], [place] [address]Result Comment: Diagnostic interpretation performed at: [facility], [address] [place] [address] CLIA# [id number] Retail Sales Specialist: MARYLIN Rodriguezerformed By: #### [id number] ####[facility] LABCLIA [id number] [address] [address] [facility] OF [facility] TR[facility]INT MEDICAL CENTERGROSS DESCRIPTIONA. GallbladderNormalCDayton VA Medical Center on above:Order Comment: Specimen Type: TISSUE SPECIMENOrdering Facility: [facility] Address: [address] [place], [place] [address]Result Comment: Received in formalin labeled gallbladder is [...] The cystic duct lumen is not obstructed. County Tax Assessor sections are submitted in one cassette. Z 09/30/24 5:34 PM Gross examination performed at [facility], [address] [place], [place] [address]Performed By: #### 11530-3 ####[facility] LABCLIA [id number] [address] [address] [place] HISTORY PHYSICALon 89-24-9743SNKBHPJ PHYSICALHNO ID: [id number] Author: GEOVANY MORELAND APRN.ARTIST MODEL Service: ? Author Type: Nurse Practitioner Type: [...] Had COVID infection 08/31/24, was treated at [facility]. Today she is asymptomatic, Lungs CTA, breathing [...] STOP-Bang Score: 0 (JANIS CPAP compliant ) THP2XQ3-NIKy Score: Age: <65 Sex: female CHF history: No Hypertension history: Yes Stroke/TIA/thromboembolism history: No Vascular disease history: No Diabetes history: No PTL5HP0-GQCd Score: 2 ARISCAT Score: Age: 51-80 Preoperative [...] fevers. Neuro: No history of TIA's, stroke, MINING ENGINEER tumor, impaired sensorium, hemiplegia, paraplegia or quadraplegia. No neurological symptoms or problems. Respiratory: Positive for JANIS CPAP compliant, asthma , Negative for Current cough, Pneumonia within 6 weeks (date) Cardiovascular: Positive for: HTN, HLD, Negative for CAD, Chest Pain, CHF, DVT/PE GI: Positive for Symptomatic cholelithiasis, Negative for Nausea, Vomiting, Abdominal pain, Difficulty swallowing : No (more content not included)...NormalPaulding County HospitalPNon 33-95-9406DETYKxelzclii (GENSAV) PRAVEENA DACOSTA ([id number]) 1965 F Date Time Provider Department 09/15/24 [...] obstruction [K80.20] Order(s):SURGICAL REQUEST - ELECTIVE (02/2020) [6987988] Order #: [id number]: 1 Prescriptions as of 09/17/2024 - albuterol [...] 09/15/2024 Encounter Status:Closed by MARILOU ROGER on 09/17/24[facility] 21-42-7488GVEMLkcntk Visit (MELISSA) PRAVEENA DACOSTA ([id number]) 1965 F Date Time Provider Department 09/12/24 [...] was discussed with the patient or authorized associate financial representative. The patient or authorized associate financial representative has agreed to proceed with the [...] Encounter Status:Closed by JONO GONZALEZ III on 09/12/24NoOhioHealth O'Bleness HospitalTORY PHYSICALon 03-36-5493CIQXFZW PHYSICALHNO ID: [id number] Author: JONO GONZALEZ III, MD Service: ? [...] was discussed with the patient or authorized associate financial representative. The patient or authorized associate financial representative has agreed to proceed with the [...] III, MD cc: Referring provider Elgin Pelayo MDLutheran HospitalPNon 44-87-3017MKCYNksoopivj (GENSAM) PRAVEENA DACOSTA ([id number]) 1965 F Date Time Provider Department 09/11/24 [...] [facility]SU [facility] 09/11/24[facility] [id number] (PULMLO) PRAVEENA DACOSTA ([id number]) 1965 F Date Time Provider Department 08/14/24 ELGIN PELAYO PULMLZach During your visit today, we recorded the following information about you: Mattie Link MA 08/14/2024 10:59 AM Signed Elgin Pelayo MD P Pul Nurse Could we try to obtain images of CT chest 02/13/2024 from [facility] in [facility]? Thanks Mattie Link MA 08/14/2024 11:49 AM Signed Faxed image request to [facility] Confirmation received Mattie Link MA 08/19/2024 8:52 AM Signed Image has been imported into [employer] and is available to view. Elgin Pelayo [...] (None) Encounter Status:Closed by MATTIE LINK on 08/19/24NoOhio[facility] [id number] Visit (PULMLO) PRAVEENA DACOSTA ([id number]) 1965 F Date Time Provider Department 08/12/24 1:00 PM ELGIN PELAYO PULMLZach During your visit today, we recorded the following information about you: Pulse Blood pressure Weight 83/minute 123/83 77.2 kg Elgin Pelayo MD 08/14/2024 10:50 AM Signed . [facility] Initial Visit Note Ms. Dacosta is a 59 year old female who presents to the [facility]. Consultation requested by Rakesh Vernon MD for [...] getting sick again Evaluated for immunodeficiency by Gas Plumbing Inspector at [facility]. On 06/09/2024. Had PFTs. FENO 12ppb. FEV1 [...] personally reviewed by me Data Reviewed from [facility] (in addition to that noted in HPI, and Past histories above): (Data from patient's OSH mychart shown on phone) CBC: last eos 100 (05/2024) IgE: 45 (wnl) PFT: 08/01/2024 Ratio 75% (normal) FEV1 120%, FVC 125% Reported positive bronchodilator response based on FEF 25-75. RV 129% (high) TLC 133% (high) DLCOc 10 3% (normal) CT Chest: 02/13/2024 (OSH, images unavailable) - [facility] in [facility] Lung: Scattered linear densities and calcifications, chronic scarring is favored. Mild dependent atelectasis. No focal parenchymal infiltrates or significant pulmonary nodules. Pleura: No mass, effusion, pneumothorax Lizeth: Small calcified right hilar lymph nodes. Assessment and Plan: Ms. Dacosta is a 59 year old female who presents to the [facility] for evaluation of bronchitis. #Recurrent bronchitis #Asthma (more content not included)...NormalMagruder Memorial HospitalHISTORY PHYSICALon [id number] PHYSICALHNO ID: [id number] Author: ELGIN PELAYO MD Service: ? Author Type: Physician Type: H&P Filed: 08/14/2024 10:50 Note Text: . [facility] Initial Visit Note Ms. Dacosta is a 59 year old female who presents to the [facility]. Consultation requested by Rakesh Vernon MD for [...] getting sick again Evaluated for immunodeficiency by Gas Plumbing Inspector at [facility]. On 06/09/2024. Had PFTs. FENO 12ppb. FEV1 [...] personally reviewed by me Data Reviewed from [facility] (in addition to that noted in HPI, and Past histories above): (Data from patient's OSH mychart shown on phone) CBC: last eos 100 (05/2024) IgE: 45 (wnl) PFT: 08/01/2024 Ratio 75% (normal) FEV1 120%, FVC 125% Reported positive bronchodilator response based on FEF 25-75. RV 129% (high) TLC 133% (high) DLCOc 10 3% (normal) CT Chest: 02/13/2024 (OSH, images unavailable) - [facility] in [facility] Lung: Scattered linear densities and calcifications, chronic scarring is favored. Mild dependent atelectasis. No focal parenchymal infiltrates or significant pulmonary nodules. Pleura: No mass, effusion, pneumothorax Lizeth: Small calcified right hilar lymph nodes. Assessment and Plan: Ms. Dacosta is a 59 year old female who presents to the [facility] for evaluation of bronchitis. #Recurrent bronchitis #Asthma Description of these bronchitis episodes-recurrent, only present after initial COVID infection, never associated with fever or systemic symptoms- is more consistent with exacerbation of airway inflammation/asthma. 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 (more content not included)...NormalOhio State Health System W Auto Differential panel (Bld)on 95-30-7519Usjgpmpjl (Bld) [#/Vol] 0.1 10*3/uLNOMS HealthcareBasophils/100 WBC (Bld)1 %Not Estab.[facility] Eosinophils (Bld) [#/Vol]0.1 10*3/uLNOMS HealthcareEosinophils/100 WBC (Bld)1 % Not Estab.[facility] HospitalErythrocyte distribution width (RBC) [Ratio]12.9 %11.7 - 15.4 %[facility] HospitalHematocrit (Bld) [Volume fraction]44.5 %34.0 - 46.6 %[facility] HospitalHemoglobin (Bld) [Mass/Vol]14.9 g/dL11.1 - 15.9 g/dLFulton State Hospital Immature granulocytes (Bld) [#/Vol]0 10*3/uLNOMS HealthcareImmature granulocytes/100 WBC (Bld)0 %Not Estab.[facility] HospitalLymphocytes (Bld) [#/Vol] 2.7 10*3/uLNOMS HealthcareLymphocytes/100 WBC (Bld)28 %Not Estab.[facility] MCH (RBC) [Entitic mass]29.7 pg26.6 - 33.0 pgColumbia Regional HospitalHC (RBC) [Mass/Vol]33.5 g/dL31.5 - 35.7 g/dLFulton State HospitalMCV (RBC) [Entitic vol]89 fL79 - 97 fLFulton State HospitalMonocytes (Bld) [#/Vol]0.5 10*3/uLNOMS Healthcare Monocytes/100 WBC (Bld)5 %Not Estab.[facility] HealthcareNeutrophils (Bld) [#/Vol]6.3 10*3/uLNOMS HealthcareNeutrophils/100 WBC (Bld)65 %Not Estab.[facility] Platelets (Bld) [#/Vol]327 10*3/uLNOMS HealthcareRBC (Bld) [#/Vol]5.02 10*6/uL [facility] HealthcareWBC (Bld) [#/Vol]9.8 10*3/uLGARFIELD MEMORIAL HOSPITAL HealthcareComment on above: Effective June 16, 2024 profile [id number] WBC will be made non-orderable as a stand-alone order code. Diphtheria / Tetanus Antibody Panelon 06-13-2024. diphtheriae Ab IA Qn (S)<0.10 LowNIHorizon Medical CenterComment on above:Interpretation: Non-Protective <0.10 Protective >=0.10 For research use only. C. tetani toxoid IgG IA Qn0.71NIDANVERS STATE HOSPITAL HealthcareComment on above: Interpretation: Non-Protective <0.10 Protective >=0.10 Results for this test are for research purposes only by the assay's environmental attorney. The performance characteristics of this product have not been established. Results should not be used as a diagnostic procedure without confirmation of the diagnosis by another medically established diagnostic product or procedure. IgAon 52-98-5518IcF [Mass/Vol]346 mg/dL87 - 352 mg/dLGARFIELD MEMORIAL HOSPITAL HealthcareIgEon 92-29-5152PpP Qn45 [IU]/LNOMS HealthcareIgGon 70-63-9526EcQ [Mass/Vol]915 mg/dL 586 - 1602 mg/dLNOAR HealthcareIgMon 88-04-3945LdH [Mass/Vol]123 mg/dL26 - 217 mg/dLFulton State HospitalNo Panel Informationon 25-29-3238Xkpjksqdrpyhrn and review of laboratory resultsAbBeaumont HospitalPerformed at: 01 - Lab[address] [id number] Instrumental Musician: Red Duque PhD, Phone: [phone] Memorial Hospital Performed at: 03 - Labco[address] [id number] Instrumental Musician: Earnest Gupta MD, Phone: [phone] AB (23 SEROTYPE)on 06-13-2024S. pneumoniae Congolese type 1 IgG IA (S) [Mass/Vol]<0.1Low 1.3 - PINF ug/mLNOMS HealthcareS. pneumoniae Congolese type 10A IgG IA (S) [Mass/Vol]<0.1Low1.3 - PINF ug/mLNOMS HealthcareS. pneumoniae Congolese type 11A IgG IA (S) [Mass/Vol]<0.1Low1.3 - PINF ug/mLNOMS HealthcareS. pneumoniae Congolese type 12F IgG IA (S) [Mass/Vol]<0.1Low1.3 - PINF ug/mLNOMS HealthcareS. pneumoniae Congolese type 14 IgG IA (S) [Mass/Vol]<0.1Low1.3 - PINF ug/mLNOMS HealthcareS. pneumoniae Congolese type 15B IgG IA (S) [Mass/Vol]<0.2Low1.3 - PINF ug/mLNOMS HealthcareS. pneumoniae Congolese type 17F IgG IA (S) [Mass/Vol]0.7 ug/mL Low1.3 - PINF ug/mLNOMS HealthcareS. pneumoniae Congolese type 18C IgG IA (S) [Mass/Vol]<0.1Low1.3 - PINF ug/mLNOMS HealthcareS. pneumoniae Congolese type 19A IgG IA (S) [Mass/Vol]0.5 ug/mLLow1.3 - PINF ug/mLNOMS HealthcareS. pneumoniae Congolese type 19F IgG IA (S) [Mass/Vol]0.3 ug/mLLow1.3 - PINF ug/mLNOMS Healthcare S. pneumoniae Congolese type 2 IgG IA (S) [Mass/Vol]<0.2Low1.3 - PINF ug/mLNOMS HealthcareS. pneumoniae Congolese type 20A IgG IA (S) [Mass/Vol]0.2 ug/mLLow1.3 - PINF ug/mLNOMS HealthcareS. pneumoniae Congolese type 22F IgG IA (S) [Mass/Vol]0.1 ug/mLLow1.3 - PINF ug/mLNOMS HealthcareS. pneumoniae Congolese type 23F IgG IA (S) [Mass/Vol]<0.1Low1.3 - PINF ug/mLNOMS HealthcareS. pneumoniae Congolese type 3 IgG IA (S) [Mass/Vol]<0.1Low1.3 - PINF ug/mLNOMS HealthcareS. pneumoniae Congolese type 33F IgG IA (S) [Mass/Vol]0.8 ug/mLLow1.3 - PINF ug/mLNOMS HealthcareComment on above:*This test was developed and its performance characteristics determined by [employer]. It has not been cleared or approved by the U.S. Food and Drug Administration. FLAG Interpretation: A = Abnormal, H = High, L = Low S. pneumoniae Congolese type 4 IgG IA (S) [Mass/Vol]<0.1Low1.3 - PINF ug/mLNOMS HealthcareS. pneumoniae Congolese type 5 IgG IA (S) [Mass/Vol]0.7 ug/mLLow1.3 - PINF ug/mLNOMS HealthcareS. pneumoniae Congolese type 6B IgG IA (S) [Mass/Vol]<0.1 Low1.3 - PINF ug/mLNOMS HealthcareS. pneumoniae Congolese type 7F IgG IA (S) [Mass/Vol]<0.1Low1.3 - PINF ug/mLNOMS HealthcareS. pneumoniae Congolese type 8 IgG IA (S) [Mass/Vol]10.7 ug/mL1.3 - PINF ug/mLNOMS HealthcareS. pneumoniae Congolese type 9N IgG IA (S) [Mass/Vol]<0.1Low1.3 - PINF ug/mLNOMS HealthcareS. pneumoniae Congolese type 9V IgG IA (S) [Mass/Vol]<0.1Low1.3 - PINF ug/mLNOMS Healthcare Performed at: - [place] [address], [facility] [address], [place] [id number] Instrumental Musician: EBER Gutierrez PhD, Phone: [phone] [facility] 57-33-8556NcqPgmmdaKettering Health Main Campus W Auto Differential panel (Bld)on 48-02-0424Aufpdcqjr (Bld) [#/Vol]0.03 10*3/[facility] Basophils/100 WBC (Bld)0.4 %0.0 - 2.0 %[facility] Eosinophils (Bld) [#/Vol]0.06 10*3/[facility] Eosinophils/100 WBC (Bld)0.9 %0.0 - 6.0 %[facility] Erythrocyte distribution width (RBC) [Ratio]13.2 %11.5 - 14.5 %[facility] for RehabilitationHematocrit (Bld) [Volume fraction]41.6 %36.0 - 46.0 % [facility] RehabilitationHemoglobin (Bld) [Mass/Vol]13.8 g/dL12.0 - 16.0 g/dLUnOhio Valley HospitalImbates county memorial hospital granulocytes (Bld) [#/Vol]0.07 10*3/[facility] HospitalImbates county memorial hospital granulocytes/100 WBC (Bld)1.0 % High0.0 - 0.9 %[facility] on above:Immature Granulocyte Count (IG) includes promyelocytes, myelocytes and metamyelocytes but does not include bands. Percent differential counts (%) should be interpreted in the context of the absolute cell counts (cells/UL).Interpretation and review of laboratory resultsAbnormalUTuscarawas HospitalLymphocytes (Bld) [#/Vol]2.17 10*3/[facility] HospitalLymphocytes/100 WBC (Bld) 32.1 %13.0 - 44.0 %[facility] HospitalH (RBC) [Entitic mass]29.6 pg26.0 - 34.0 pgUnKettering HealthHC (RBC) [Mass/Vol]33.2 g/dL 32.0 - 36.0 g/dLUnKettering HealthV (RBC) [Entitic vol]89 fL80 - 100 fLUniSumma HealthMonocytes (Bld) [#/Vol]0.32 10*3/uL [facility] RehabilitationMonocytes/100 WBC (Bld)4.7 %2.0 - 10.0 % [facility] for RehabilitationNeutrophils (Bld) [#/Vol]4.12 10*3/[facility] on above:Percent differential counts (%) should be interpreted in the context of the absolute cell counts (cells/uL). Neutrophils/100 WBC (Bld)60.9 %40.0 - 80.0 %[facility] Nucleated RBC/100 WBC (Bld) [Ratio]0.0 %[facility] Platelets (Bld) [#/Vol]234 10*3/[facility] HospitalRBC (Bld) [#/Vol]4.66 10*6/uLUniversity Hospitals of ClevelandWBC (Bld) [#/Vol]6.8 10*3/uL [facility] for RehabilitationUnOhio Valley HospitalBasophils (Bld) [#/Vol]0.03 x10*3/uLNormal0.00-0.10Holzer HospitalComment on above:Performed By: #### 65750-9 #### MIK FREITAS ([id number]) [facility] ([facility]) [address] [place], [place] [address]Jqwqmujpn/100 WBC (Bld)0.4 %Normal0.0-2.0Holzer HospitalComment on above:Performed By: #### 23195-4 #### MIK FREITAS ([id number]) [facility] ([facility]) [address] [place], [place] [address]Lgemabkqkpq (Bld) [#/Vol]0.06 x10*3/uLNormal0.00-0.70 Holzer HospitalComment on above:Performed By: #### 00618-1 #### MIK FREITAS ([id number]) [facility] ([facility]) [address] [place] [address]Mpqobkipoir/100 WBC (Bld)0.9 %Normal0.0-6.0Holzer HospitalComment on above:Performed By: #### 67367-6 #### MIK FREITAS ([id number]) [facility] ([facility]) [id number] [place] [address]Gigsustaoju distribution width (RBC) [Ratio]13.2 %Normal 11.5-14.5Holzer HospitalComment on above:Performed By: #### 62656-1 #### MIK FREITAS ([id number]) [facility] ([facility]) [address] [place], [place] [address]Jkakrxkzjq (Bld) [Volume fraction]41.6 %Aeqklf87.0-46.0 Holzer HospitalComment on above:Performed By: #### 90430-3 #### MIK FREITAS ([id number]) [facility] ([facility]) [address] [place], [place] [address]Infuolntjy (Bld) [Mass/Vol]13.8 g/lKYrgirw32.0-16.0Holzer HospitalComment on above:Performed By: #### 79923-4 #### MIK FREITAS ([id number]) [facility] ([facility]) [id number] [place] [address]Lhwqercc granulocytes (Bld) [#/Vol]0.07 x10*3/uLNormal 0.00-0.70Holzer HospitalComment on above:Performed By: #### 18381-8 #### MIK FREITAS ([id number]) [facility] ([facility]) [address] [place] [address]Qjlvoesj granulocytes/100 WBC (Bld)1.0 %High0.0-0.9UnSt. Vincent HospitalComment on above:Result Comment: Immature Granulocyte Count (IG) includes promyelocytes, myelocytes and metamyelocytes but does not include bands. Percent differential counts (%) should be interpreted in the context of the absolute cell counts (cells/UL).Performed By: #### 75030-7 #### MIK FREITAS ([id number]) [facility] ([facility]) [address] [place] [address]Uveqtzakzck (Bld) [#/Vol]2.17 x10*3/uLNormal1.20-4.80 Holzer HospitalComment on above:Performed By: #### 75441-8 #### MIK FREITAS ([id number]) [facility] ([facility]) [address] [place], [place] [address]Cspkcybpojq/100 WBC (Bld)32.1 %Onhdmq75.0-44.0Holzer HospitalComment on above:Performed By: #### 19108-0 #### MIK FREITAS ([id number]) [facility] ([facility]) [address] [place], [place] [address]YNF (RBC) [Entitic mass]29.6 jsCgerti31.0-34.0Holzer HospitalComment on above:Performed By: #### 73347-7 #### MIK FREITAS ([id number]) [facility] ([facility]) [address] [place], [place] [address]UZOJ (RBC) [Mass/Vol]33.2 g/dXFwmnck10.0-36.0UnSt. Vincent HospitalComment on above:Performed By: #### 39437-1 #### MIK FREITAS ([id number]) [facility] ([facility]) [address] [place], [place] [address]OJP (RBC) [Entitic vol]89 hBLwnowy59-230PnebrbrtksSt. Vincent HospitalComment on above:Performed By: #### 95202-1 #### MIK FREITAS ([id number]) [facility] ([facility]) [address] [place], [place] [address]Pfwounlge (Bld) [#/Vol]0.32 x10*3/uLNormal0.10-1.00UnSt. Vincent HospitalComment on above:Performed By: #### 99084-6 #### MIK FREITAS (48030) [facility] ([facility]) [address] [place], [place] [address]Pvrbbjwdk/100 WBC (Bld)4.7 %Normal2.0-10.0Holzer HospitalComment on above:Performed By: #### 55200-4 #### MIK FREITAS ([id number]) [facility] ([facility]) [address] [place], [place] [address]Bcaecgfpvmo (Bld) [#/Vol]4.12 x10*3/uLNormal1.20-7.70 Holzer HospitalComment on above:Result Comment: Percent differential counts (%) should be interpreted in the context of the absolute cell counts (cells/uL).Performed By: #### 78864-5 #### MIK FREITAS ([id number]) [facility] ([facility]) [address] [place] [address]Ogfnucyuiko/100 WBC (Bld)60.9 %Azdikd93.0-80.0Holzer HospitalComment on above:Performed By: #### 09428-7 #### MIK FREITAS ([id number]) [facility] ([facility]) [address] [place] [address]Gljkerftr RBC/100 WBC (Bld) [Ratio]0.0 /100 WBCsNormal0.0-0.0 Holzer HospitalComment on above:Performed By: #### 09722-9 #### MIK FREITAS ([id number]) [facility] ([facility]) [address] [place] [address]Deofeqfgt (Bld) [#/Vol]234 x10*3/hUGxvaei493-420CqbgkccycuSt. Vincent HospitalComment on above:Performed By: #### 86208-4 #### MIK FREITAS ([id number]) [facility] ([facility]) [address] [place] [address]VUM (Bld) [#/Vol]4.66 x10*6/uLNormal4.00-5.20Holzer HospitalComment on above:Performed By: #### 41984-4 #### MIK FREITAS ([id number]) [facility] ([facility]) [address] [place] [address]OTO (Bld) [#/Vol]6.8 x10*3/uLNormal4.4-11.3Holzer HospitalComment on above:Performed By: #### 41226-9 #### MIK FREITAS ([id number]) [facility] ([facility]) [address] [place] [address]GZ CERVICAL SPINE WO IV CONTRASTon 33-72-0141AG CERVICAL SPINE WO IV CONTRASTInterpreted By: Willy Anderson, STUDY: CT CERVICAL SPINE WO IV CONTRAST; 08/07/2023 9:01 am INDICATION: Signs/Symptoms:Mechanical fall, no thinners, positive LOC. COMPARISON: None. ACCESSION NUMBER(S): [id number] ORDERING CLINICIAN: NEELIMA PERALTA TECHNIQUE: Axial CT [...] Willy Anderson 08/07/2023 9:41 AM Dictation workstation: [id number] HospitalCT Cervical spine WO contraston 13-26-0595Nl evidence for an acute fracture or subluxation of the cervical spine. MACRO: None Signed by: Willy Anderson 08/07/2023 9:41 AM Dictation workstation: [id number] MMODALInterpreted By: Willy Anderson, STUDY: CT CERVICAL SPINE WO IV CONTRAST; 08/07/2023 9:01 am INDICATION: Signs/Symptoms:Mechanical fall, no thinners, positive LOC. COMPARISON: None. ACCESSION NUMBER(S): [id number] ORDERING CLINICIAN: NEELIMA PERALTA TECHNIQUE: Axial CT [...] thinners, positive LOC. COMPARISON: None. ACCESSION NUMBER(S): [id number] ORDERING CLINICIAN: NEELIMA PERALTA TECHNIQUE: Axial CT [...] Willy Anderson 08/07/2023 9:41 AM Dictation workstation: [id number] [facility] Work Phone: [facility] Work Phone: CT HEAD WO IV CONTRASTon [id number] HEAD WO IV CONTRASTInterpreted By: Willy Anderson, STUDY: CT HEAD WO IV CONTRAST; 08/07/2023 9:01 am INDICATION: Signs/Symptoms:Mechanical fall, no thinners, positive LOC. COMPARISON: None. ACCESSION NUMBER(S): [id number] ORDERING CLINICIAN: NEELIMA PERALTA TECHNIQUE: Noncontrast axial [...] Willy Anderson 08/07/2023 9:38 AM Dictation workstation: [id number] HospitalCT Head WO contraston 57-96-7322Sj acute intracranial hemorrhage, mass effect, or calvarial fracture. MACRO: None Signed by: Willy Anderson 08/07/2023 9:38 AM Dictation workstation: [id number] MMODALInterpreted By: Willy Anderson, STUDY: CT HEAD WO IV CONTRAST; 08/07/2023 9:01 am INDICATION: Signs/Symptoms:Mechanical fall, no thinners, positive LOC. COMPARISON: None. ACCESSION NUMBER(S): [id number] ORDERING CLINICIAN: NEELIMA PERALTA TECHNIQUE: Noncontrast axial [...] thinners, positive LOC. COMPARISON: None. ACCESSION NUMBER(S): [id number] ORDERING CLINICIAN: NEELIMA PERALTA TECHNIQUE: Noncontrast axial [...] Willy Anderson 08/07/2023 9:38 AM Dictation workstation: [id number] [facility] Work Phone: ct Head WO contrastOrdered By: Willy Anderson on 79-18-3883YmihdikcflCleveland Clinic [facility]'s [facility] Work Phone: ct THORACIC SPINE WO IV CONTRASTon [id number] THORACIC SPINE WO IV CONTRASTInterpreted By: Willy Anderson, STUDY: CT THORACIC SPINE WO IV CONTRAST; 08/07/2023 9:01 am INDICATION: Signs/Symptoms:Mechanical fall, no thinners, positive LOC, thoracic spinal tenderness. COMPARISON: None. ACCESSION NUMBER(S): [id number] ORDERING CLINICIAN: NEELIMA PERALTA TECHNIQUE: Axial CT [...] Willy Anderson 08/07/2023 9:48 AM Dictation workstation: [id number] HospitalCT Thoracic spine WO contraston 49-49-7210Tx acute osseous abnormality of the thoracic spine. Mild chronic appearing anterior wedging of a few scattered thoracic vertebral bodies as above. MACRO: None Signed by: Willy Anderson 08/07/2023 9:48 AM Dictation workstation: [id number] MMODALInterpreted By: Willy Anderson, STUDY: CT THORACIC SPINE WO IV CONTRAST; 08/07/2023 9:01 am INDICATION: Signs/Symptoms:Mechanical fall, no thinners, positive LOC, thoracic spinal tenderness. COMPARISON: None. ACCESSION NUMBER(S): [id number] ORDERING CLINICIAN: NEELIMA PERALTA TECHNIQUE: Axial CT [...] thoracic spinal tenderness. COMPARISON: None. ACCESSION NUMBER(S): [id number] ORDERING CLINICIAN: NEELIMA PERALTA TECHNIQUE: Axial CT [...] Willy Anderson 08/07/2023 9:48 AM Dictation workstation: [id number] [facility] Work Phone: [facility] Work Phone: Coagulation tissue factor inducedon 82-74-3815SD Coag (PPP) [Time]11.1 sNormal9.8-12.8UnSt. Vincent Hospital Comment on above:Performed By: #### 5902-2 #### MIK FREITAS ([id number]) [facility] ([facility]) [address] [place], [place] [address]Ilzhzniumjdra metabolic 2000 panelon 95-03-4797Kgtxwlg BCP dye [Mass/Vol]4.7 g/dL3.4 - 5.0 g/dLUnOhio Valley HospitalALP [Catalytic activity/Vol]61 U/L33 - 110 U/[facility] HospitalALT With P-5'-P [Catalytic activity/Vol]27 U/L7 - 45 U/[facility] HospitalComment on above:Patients treated with Sulfasalazine may generate falsely decreased results for ALT.Anion gap [Moles/Vol]11 mmol/L10 - 20 mmol/[facility] HospitalAST With P-5'-P [Catalytic activity/Vol]23 U/L9 - 39 U/[facility] HospitalBilirubin [Mass/Vol]0.5 mg/dL0.0 - 1.2 mg/dLUnOhio Valley HospitalCalcium [Mass/Vol]9.4 mg/dL8.6 - 10.3 mg/dLCleveland Clinic Children's Hospital for RehabilitationChloride [Moles/Vol]101 mmol/L98 - 107 mmol/[facility] HospitalCO2 [Moles/Vol]28 mmol/L21 - 32 mmol/[facility] HospitalCreatinine [Mass/Vol]0.75 mg/dL0.50 - 1.05 mg/dLUnOhio Valley HospitaleGFR- PINFUniSumma HealthComment on above:Calculations of estimated GFR are performed using the 2020 CKD-EPI Study Refit equation without therace variable for the IDMS-Traceable creatinine methods. https://jasn.asnjournals.org/content/early/ASN.1380753577 Glucose [Mass/Vol]108 mg/sYBtdr02 - 99 mg/dLUnOhio Valley Hospital Interpretation and review of laboratory resultsAbnormalUniSumma HealthPotassium [Moles/Vol]3.8 mmol/L3.5 - 5.3 mmol/McC[facility] Memorial HospitalProtein [Mass/Vol]7.8 g/dL6.4 - 8.2 g/dLUnOhio Valley HospitalSodium [Moles/Vol]136 mmol/L136 - 145 mmol/McCull[facility]-Hyde Memorial HospitalUrea nitrogen [Mass/Vol]13 mg/dL6 - 23 mg/dLUnOhio Valley HospitalUnOhio Valley HospitalAlbumin BCP dye [Mass/Vol]4.7 g/dL Normal3.4-5.0UnSt. Vincent HospitalComment on above: Performed By: #### 10111-3 #### MIK FREITAS ([id number]) [facility] ([facility]) [address] [place], [place] [address]CCV [Catalytic activity/Vol]61 U/MIswthu77-417YdryjirnozSt. Vincent HospitalComment on above:Performed By: #### 87424-5 #### MIK FREITAS ([id number]) [facility] ([facility]) [address] [facility], [place] [address]IBS With P-5'-P [Catalytic activity/Vol]27 U/LNormal7-45 Holzer HospitalComment on above:Result Comment: Patients treated with Sulfasalazine may generate falsely decreased results for ALT.Performed By: #### 29968-0 #### MIK FREITAS ([id number]) [facility] ([facility]) [address] [facility], [place] [address]Iqymz gap [Moles/Vol]11 mmol/TMvyvkj93-18ZtcsdolgboSt. Vincent HospitalComment on above:Performed By: #### 88123-4 #### MIK FREITAS ([id number]) [facility] ([facility]) [address] [facility], [place] [address]NAT With P-5'-P [Catalytic activity/Vol]23 U/LNormal9-39 Holzer HospitalComment on above:Performed By: #### 93803-0 #### MIK FREITAS ([id number]) [facility] ([facility]) [address] [facility], [place] [address]Gwhrudvut [Mass/Vol]0.5 mg/dLNormal0.0-1.2UnSt. Vincent HospitalComment on above:Performed By: #### 23553-3 #### MIK FREITAS ([id number]) [facility] ([facility]) [address] [facility], [place] [address]Ugfjvgo [Mass/Vol]9.4 mg/dLNormal8.6-10.3UnSt. Vincent HospitalComment on above:Performed By: #### 34030-0 #### MIK FREITAS (48062) [facility] ([facility]) [address] [facility], [place] [address]Iwexqwiz [Moles/Vol]101 mmol/XOimisr99-550GdkttbbauxSt. Vincent HospitalComment on above:Performed By: #### 86026-6 #### MIK FREITAS ([id number]) [facility] ([facility]) [address] [facility] [place] [address]ET9 [Moles/Vol]28 mmol/VXnftji88-05MylsbzznuvHolzer HospitalComment on above:Performed By: #### 16941-1 #### MIK FREITAS ([id number]) [facility] ([facility]) [address] [facility] [place] [address]Qiuwnuvhpk [Mass/Vol]0.75 mg/dLNormal0.50-1.05UnSt. Vincent HospitalComment on above:Performed By: #### 57949-9 #### MIK FREITAS ([id number]) [facility] ([facility]) [address] [facility] [place] [address]RGK/1.73 sq M.predicted MDRD (S/P/Bld) [Vol rate/Area] mL/min/{1.73_m2}Normal>60UnSt. Vincent HospitalComment on above:Result Comment: Calculations of estimated GFR are performed using the 2020 CKD-EPI Study Refit equation without the race variable for the IDMS-Traceable creatinine methods. https://jasn.asnjournals.org/content//ASN.3370361496Dswguzxpo By: #### 56706-4 #### MIK FREITAS (63261) [facility] ([facility]) [address] [facility] [place], [place] [address]Orjwbij [Mass/Vol]108 mg/rAIouq31-37AbpdhdudakSt. Vincent HospitalComment on above:Performed By: #### 58546-2 #### MIK FREITAS (55650) [facility] ([facility]) [address] [facility] [place], [place] [address]Qlxcpzhqb [Moles/Vol]3.8 mmol/LNormal3.5-5.3Holzer HospitalComment on above:Performed By: #### 96658-6 #### MIK FREITAS (18572) [facility] ([facility]) [address] [facility] [place] [address]Zzctpju [Mass/Vol]7.8 g/dLNormal6.4-8.2UnSt. Vincent HospitalComment on above:Performed By: #### 01749-4 #### MIK FREITAS (86695) [facility] ([facility]) [address], [place] [address]Bocnhk [Moles/Vol]136 mmol/PEmanju477-193XlcxzrlwvsSt. Vincent HospitalComment on above:Performed By: #### 84190-6 #### MIK FREITAS (52773) [facility] ([facility]) [address] [place], [place] [address]Sbql nitrogen [Mass/Vol]13 mg/dLNormal6-23UnSt. Vincent HospitalComment on above:Performed By: #### 95581-4 #### MIK FREITAS ([id number]) [facility] ([facility]) [address] [place], [place] [address]DHB 12-LEADon 97-36-1636KEH 12-LEADVentricular Rate 73 Atrial Rate 73 P-R Interval 168 QRS Duration 70 Q-T Interval 392 QTC Calculation(Bazett) 431 P Tresckow 32 R Tresckow 43 T Tresckow 24 QRS Count 12 Q Onset 225 P Onset 141 P Offset 194 T Offset 421 QTC Fredericia 418 Diagnosis Normal sinus rhythm Septal infarct , age undetermined Abnormal ECG No previous ECGs available Confirmed by Josie Anthony ([id number]) on 08/29/2023 9:59:19 PMNormalTrenton Psychiatric HospitalNo Panel Informationon 36-12-1993Ysknsyezt Study observation (narrative)[facility] Work Phone: PT Coag (PPP) [Time]on 35-90-8005RKK Coag (PPP) [Relative time]1.0 {INR}0.9 - 1.1UnOhio Valley HospitalInterpretation and review of laboratory resultsNormalUniversMangum Regional Medical Center – MangumINR Coag (PPP) [Relative time]1.3Wwvtxq0.9-1.1 Holzer HospitalComment on above:Performed By: #### 5902-2 #### MIK FREITAS (24397) [facility] ([facility]) [address], [place] [address]Rmlaelw-AAHtr 29-35-5776KF Coag ([facility]) [Time]11.1 [facility]red Hospital DaytonMM TOMOSYNTHESIS SCREENING BIon 28-25-7875HdkRiverview Health Institute [address] [place] [address] Mammography Report Signed Patient: PRAVEENA DACOSTA MR#: [id number] : 1965 Acct:[id number] Age/Sex: 58 / F ADM Date: 06/27/23 Loc: MAMMO Attending Dr: Jennifer Jennings Ordering Physician: Jennifer Jennings Results: Date of Service: 06/27/23 Follow Up: Procedure(s): MM tomosynthesis screening BI Accession Number(s): [id number] cc: Jennifer Jennings; Rakesh Vernon M.D. Patient Name: PRAVEENA DACOSTA MR#: [id number] : 1965 Exam Date: 06/27/2023 Ordering Doctor: [...] breast cancer at age 50. LOCATION: [facility] BREAST COMPOSITION: Heterogeneously dense,which may obscure small [...] M.D. Signed By: 06/29/23813 DD/ 2 TD/TT: [employer] Worker:TBHRadiology, Radiologist, - 06/29/2023 [place] [address] Mammography Report Signed Patient: PRAVEENA DACOSTA MR#: [id number] : 1965 Acct:[id number] Age/Sex: 58 / F ADM Date: 06/27/23 Loc: MAMMO Attending Dr: Jennifer Jennings Ordering Physician: Jennifer Jennings Results: Date of Service: 06/27/23 Follow Up: Procedure(s): MM tomosynthesis screening BI Accession Number(s): [id number] cc: Jennifer Jennings; Rakesh Vernon M.D. Patient Name: PRAVEENA DACOSTA MR#: [id number] : 1965 Exam Date: 06/27/2023 Ordering Doctor: [...] breast cancer at age 50. LOCATION: [facility] BREAST COMPOSITION: Heterogeneously dense,which may obscure small [...] M.D. Signed By: 06/29/23813 DD/ 2 TD/TT: [employer] Worker: [place] HealthcareRadiology Study observation (narrative)[facility] HealthcareMM TOMOSYNTHESIS SCREENING BIOrdered By: Radiologist Radiology on 67-62-5566[facility] Work Phone: XR DEXA AXIAL SKELETONon 42-85-9269[place] [id number] XRay Report Signed Patient: PRAVEENA DACOSTA MR#: [id number] : 1965 Acct:[id number] Age/Sex: 58 / F ADM Date: 06/27/23 Loc: MAMMO Attending Dr: Jennifer Jennings Ordering Physician: Jennifer Jennings Date of Service: 06/27/23 Procedure(s): XR DEXA axial skeleton Accession Number(s): [id number] cc: Jennifer Jennings; Rakesh Vernon M.D. [address] [address] Patient Name: PRAVEENA DACOSTA MRN: [id number] date: 1965 Sex: F [facility] Accession/Order Number: [id number] Exam Date: 06/27/2023 14:15 Report Date: 06/27/2023 [...] M.D. Signed By: 06/27/231551 DD/ 48 TD/TT: [employer] Worker:TAMARadiologjuwan, Radiologist, - 06/27/2023 [place] [address] XRay Report Signed Patient: PRAVEENA DACOSTA MR#: [id number] : 1965 Acct:[id number] Age/Sex: 58 / F ADM Date: 06/27/23 Loc: MAMMO Attending Dr: Jennifer Jennings Ordering Physician: Jennifer Jennings Date of Service: 06/27/23 Procedure(s): XR DEXA axial skeleton Accession Number(s): [id number] cc: Jennifer Jennings; Rakesh Vernon M.D. [address] [place] [address] Patient Name: PRAVEENA DACOSTA MRN: [id number] date: 1965 Sex: F Assigned Patient Location: [facility] Current Patient Location: [facility] Accession/Order Number: [id number] Exam Date: 06/27/2023 14:15 Report Date: 06/27/2023 [...] M.D. Signed By: 06/27/231551 DD/ 48 TD/TT: [employer] Worker: [place] HealthcareRadiology Study observation (narrative)[facility] State HospitalXR DEXA AXIAL SKELETONOrdered By: Radiologist Radiology on 04-94-2182[employer] Work Phone: cBC AUTO DIFFon 12-84-9704ZZDS #0.0 103/ulNormal 0.0-0.1[facility] WestComment on above:Performed By: #### CBC #### [facility] [address] [place] [address] Dr. Enrique ParkinsonBasophils/100 WBC (Bld)0.6 %Normal0.2-2.0[facility] Comment on above:Performed By: #### CBC #### [facility] [address] [place] [address] Dr. Enrique Shafer #0.1 103/ulNormal0.0-0.7The [facility] WestComment on above: Performed By: #### CBC #### [facility] [address] [place] [address] Dr. Enrique Chaseosinophils/100 WBC (Bld)0.9 %Normal0.9-7.0[facility] Comment on above:Performed By: #### CBC #### [facility] [address] [place] [address] Dr. Enrique Chaserythrocyte distribution width (RBC) [Ratio]12.9 %Bcptxk58.0-15.0 [facility] WestComment on above:Performed By: #### CBC #### [facility] [address] [place] [address] Dr. Enrique ParkinsonHematocrit (Bld) [Volume fraction]41.5 %Odvclb72.0-48.0The [facility] WestComment on above:Performed By: #### CBC #### [facility] [address] [place] [address] Dr. Enrique ParkinsonHemoglobin (Bld) [Mass/Vol]14.3 g/vZByzmml89.0-16.0[facility] WestComment on above:Performed By: #### CBC #### [facility] [address] [place] [address] Dr. Enrique Tobar #0.02 10e3/ulNormal0.00-0.03The [facility] WestComment on above:Performed By: #### CBC #### [facility] [address] [place] [address] Dr. Enrique Tobar %0.3 %Normal0.0-0.5The [facility] - WestComment on above: Performed By: #### CBC #### [facility] [address] [place] [address] Dr. Enrique Archuleta #1.8 103/ulNormal1.2-3.8The [facility] - WestComment on above:Performed By: #### CBC #### [facility] [address] [place] [address] Dr. Enrique Grayhocytes/100 WBC (Bld)25.9 %Almnxk90.5-60.0The [facility] - WestComment on above:Performed By: #### CBC #### [facility] [address] [place] [address] Dr. Enrique ElizabethMAGRUDER MEM[facility]IAL [facility] DIFF REQNONormalThe [facility] - WestComment on above: Performed By: #### CBC #### [facility] [address] [place] [address] Dr. Enrique Coppola (RBC) [Entitic mass]30.2 qlCsvvpr96.7-34.0The [facility] WestComment on above:Performed By: #### CBC #### [facility] [address] [place] [address] Dr. Enrique Darnell (RBC) [Mass/Vol]34.5 g/zBHoxufd74.9-35.2The [facility] WestComment on above:Performed By: #### CBC #### [facility] [address] [place] [address] Dr. Enrique Darnell (RBC) [Entitic vol]87.6 sZWrtmet48.0-99.0The [facility] WestComment on above:Performed By: #### CBC #### [facility] [address] [place] [address] Dr. Enrique Dolan #0.4 103/ulNormal0.3-0.8The [facility] WestComment on above:Performed By: #### CBC #### [facility] [address] [place] [address] Dr. Enrique Goodsonocytes/100 WBC (Bld)5.1 %Normal1.7-12.0[facility] Comment on above:Performed By: #### CBC #### [facility] [address] [place] [address] Dr. Enrique James #4.6 103/ulNormal1.4-6.5The [facility] WestComment on above:Performed By: #### CBC #### [facility] [address] [place] [address] Dr. Enrique Talaveraophils/100 WBC (Bld)67.2 %Zkxklg99.0-75.0The [facility] - WestComment on above:Performed By: #### CBC #### [facility] [address] [place] [address] Dr. Enrique Ramirez mean volume (Bld) [Entitic vol]9.2 fLCritically low 9.5-13.5The [facility] WestComment on above:Performed By: #### CBC #### [facility] [address] [place] [address] Dr. Enrique ParkinsonPLT246 103/gvMybcgh194-957Bqz [facility] - WestComment on above: Performed By: #### CBC #### [facility] [address] [place] [address] Dr. Enrique MasC4.74 106/ulNormal4.20-5.40The [facility] - WestComment on above:Performed By: #### CBC #### [facility] [address] [place] [address] Dr. Enrique ParkinsonWBC6.9 103/ulNormal4.0-11.0The [facility] - WestComment on above: Performed By: #### CBC #### [facility] [address] [place] [address] Dr. Enrique Currie T3on 08-24-7012SYEV T32.43 pg/mlLNormal2.18-3.98The [facility] on above:Performed By: #### T4, TSH, LIPID, CMP, FT3 #### [facility] [address] [place] [address] [address] Enrique ParkinsonGLYCOHEMOGLOBIN A1Con 09-56-7618JAO RECOMMENDATIONSEE BELOWMercy Health Clermont HospitalCommclaren port [facility] hospital on above:Result Comment: ADA RECOMMENDED LIMIT 4.0 - 6.0 ADA THERAPEUTIC TARGET < 7.0 ACTION SUGGESTED > 7.0Performed By: #### A1C #### [facility] [address] [place] [address] [address] Enrique ParkinsonGlucose [Mass/Vol]114 mg/dLNoCleveland Clinic on above:Performed By: #### A1C #### [facility] [address] [place] [address] [address] Enrique ParkinsonHbA1c (Bld) [Mass fraction]5.6 %Normal4.5-6.2The [facility] on above:Performed By: #### A1C #### [facility] [address] [place] [address] [address] Enrique ParkinsonLIPID PROFILEon 63-45-4344THQM-HDL RATIO NORMSEE [facility] HospitalCommclaren port hur[facility] hospital on above:Result Comment: 3.3 - 4.4 LOW RISK 4.4 - 7.1 AVERAGE RISK 7.1 - 11.0 MODERATE RISK >11.0 HIGH RISKPerformed By: #### T4, TSH, LIPID, CMP, FT3 #### [facility] [address] [place] [address] [address] Enrique ParkinsonCholesterol [Mass/Vol]241 mg/dLCritically high<=200The [facility] on above:Performed By: #### T4, TSH, LIPID, CMP, FT3 #### [facility] [address] [place] [address] [address] Enrique ParkinsonCholesterol in HDL [Mass/Vol]45 mg/pSNanbnb99-62Lta Fullerton HospitalComment on above:Performed By: #### T4, TSH, LIPID, CMP, FT3 #### [facility] [address] [address] [address] Enrique Ramiresesterol in LDL [Mass/Vol]131.2 mg/dLMorrow County Hospital on above:Performed By: #### T4, TSH, LIPID, CMP, FT3 #### [facility] [address] [place] [address] Dr. Enrique Garcia.total/Cholesterol in HDL [Mass ratio]5.4 {ratio} NormalThe [facility] - WestCommclaren port huron hospital on above:Performed By: #### T4, TSH, LIPID, CMP, FT3 #### [facility] [address] [place] [address] Dr. Enrique Krueger NORMAL> or = 60 mg/dl - LOW CARDIOVASCULAR RISK <40 mg/dl - HIGH CARDIOVASCULAR RISKTogus VA Medical CenterCommclaren port [facility] hospital on above:Performed By: #### T4, TSH, LIPID, CMP, FT3 #### [facility] [address] [place] [address] Dr. Enrique Cespedes CALC NORMALSEE BELOWTogus VA Medical CenterCommclaren port [facility]on hospital on above:Result Comment: <100 mg/dl OPTIMAL 100 - 129 mg/dl NEAR OR ABOVE OPTIMAL 130 - 159 mg/dl BORDERLINE HIGH 160 - 189 mg/dl HIGH >190 mg/dl VERY HIGH Performed By: #### T4, TSH, LIPID, CMP, FT3 #### [facility] [address] [place] [address] Dr. Enrique ParkinsonTriglyceride [Mass/Vol]324 mg/dLCritically high<=150[facility] on above:Performed By: #### T4, TSH, LIPID, CMP, FT3 #### [facility] [address] [place] [address] Dr. Enrique ArizaLDL CALC64.8 mg/dLTogus VA Medical CenterComment on above: Performed By: #### T4, TSH, LIPID, CMP, FT3 #### [facility] [address] [place] [address] Dr. Enrique Hogan 14(COMP METB)on 18-25-9816Ysfdeak [Mass/Vol]4.1 g/dLNormal 3.4-5.0The Peoples Hospitalment on above:Performed By: #### T4, TSH, LIPID, CMP, FT3 #### [facility] [address] [place] [address] Dr. Enrique ParkinsonAlbumin/Globulin [Mass ratio]1.1 {ratio}NormalThe [facility] Hospital - WestComment on above:Performed By: #### T4, TSH, LIPID, CMP, FT3 #### [facility] [address] [place] [address] Dr. Enrique Ash [Catalytic activity/Vol]83 U/ZAwikae32-250Ick Peoples Hospitalment on above:Performed By: #### T4, TSH, LIPID, CMP, FT3 #### [facility] [address] [place] [address] Dr. Enrique Angela [Catalytic activity/Vol]28 U/YTngbjy25-72Yhn [facility] - WestComment on above:Performed By: #### T4, TSH, LIPID, CMP, FT3 #### [facility] [address] [place] [address] Dr. Enrique Lopes gap [Moles/Vol]12.3 mmol/LNormalThe [facility] Comment on above:Performed By: #### T4, TSH, LIPID, CMP, FT3 #### [facility] [address] [place] [address] Dr. Enrique Coon [Catalytic activity/Vol]20 U/YGiocdy16-04Nfq [facility] on above:Performed By: #### T4, TSH, LIPID, CMP, FT3 #### [facility] [address] [place] [address] Dr. Enrique ParkinsonBilirubin [Mass/Vol]0.4 mg/dLNormal0.2-1.0The [facility] Comment on above:Performed By: #### T4, TSH, LIPID, CMP, FT3 #### [facility] [address] [place] [address] Dr. Yilan ChangCalcium [Mass/Vol]9.2 mg/dLNormal8.5-10.1The [facility] Comment on above:Performed By: #### T4, TSH, LIPID, CMP, FT3 #### [facility] [address] [place] [address] [address] Enrique ParkinsonChloride [Moles/Vol]101 mmol/EEpskwu40-111Irl [facility] Comment on above:Performed By: #### T4, TSH, LIPID, CMP, FT3 #### [facility] [address] [address] [address] Enrique ParkinsonCO2 [Moles/Vol]29.4 mmol/SNtfmfo01.0-32.0The [facility] Comment on above:Performed By: #### T4, TSH, LIPID, CMP, FT3 #### [facility] [address] [address] [address] Enrique ParkinsonCreatinine [Mass/Vol]0.80 mg/dLNormal0.55-1.02The [facility] - WestComment on above:Performed By: #### T4, TSH, LIPID, CMP, FT3 #### [facility] [address] [address] [address] Enrique ChaseGFR-AF GREENLANDIC>60Normal>=60The [facility] - WestComment on above:Performed By: #### T4, TSH, LIPID, CMP, FT3 #### [facility] [address] [place] [address] [address] Enrique ChaseGFR-NON AF GREENLANDIC>60Normal>=60The [facility] - WestComment on above:Performed By: #### T4, TSH, LIPID, CMP, FT3 #### [facility] [address] [address] [address] Enrique ParkinsonGlobulin (S) [Mass/Vol]3.8 g/dLNormalThe [facility] - WestComment on above:Performed By: #### T4, TSH, LIPID, CMP, FT3 #### [facility] [address] [address] [address] Enrique ParkinsonGlucose [Mass/Vol]111 mg/dLCritically fwpi04-377Txf [facility] WestComment on above:Performed By: #### T4, TSH, LIPID, CMP, FT3 #### [facility] [address] [place] [address] Dr. Enrique ParkinsonPotassium [Moles/Vol]3.7 mmol/LNormal3.5-5.1The [facility] Comment on above:Performed By: #### T4, TSH, LIPID, CMP, FT3 #### [facility] [address] [place] [address] Dr. Enrique ParkinsonProtein [Mass/Vol]7.9 g/dLNormal6.4-8.2The [facility] Comment on above:Performed By: #### T4, TSH, LIPID, CMP, FT3 #### [facility] [address] [place] [address] Dr. Enrique ParkinsonSodium [Moles/Vol]139 mmol/NSefgno753-459Flu [facility] Comment on above:Performed By: #### T4, TSH, LIPID, CMP, FT3 #### [facility] [address] [place] [address] Dr. Enrique ParkinsonUrea nitrogen [Mass/Vol]15.0 mg/dLNormal7.0-18.0The [facility] - WestComment on above:Performed By: #### T4, TSH, LIPID, CMP, FT3 #### [facility] [address] [place] [address] Dr. Enrique ParkinsonUrea nitrogen/Creatinine [Mass ratio]18.8 mg/mgNormalThe [facility] - WestComment on above:Performed By: #### T4, TSH, LIPID, CMP, FT3 #### [facility] [address] [place] [address] Dr. Enrique Zamora 03-72-3681E2 [Mass/Vol]10.30 ug/dLNormal4.80-13.90The [facility] - WestComment on above:Performed By: #### T4, TSH, LIPID, CMP, FT3 #### [facility] [address] [place] [address] Dr. Enrique Aleman 60-89-7923SEG0.847 uIU/mLNormal0.358-3.740Riverview Health InstituteComment on above:Performed By: #### T4, TSH, LIPID, CMP, FT3 #### [facility] [address] [place] [address] Dr. Enrique ParkinsonVITAMIN D 25 OHon 84-54-3522KPO D 25-OH35.8 ng/mLNormalRiverview Health InstituteComment on above:Performed By: #### VITAD #### [facility] [address] [address] [address] Enrique Navarro D RANGESSEE BELOWTogus VA Medical CenterComment on above: Result Comment: <20 ng/mL Vit D deficient 20 - <30 ng/mL Vit D insufficient 30 - 100 ng/mL Vit D sufficient >100 ng/mL Potential ToxicityPerformed By: #### VITAD #### [facility] [address] [place] [address] Dr. Enrique ParkinsonCovid-19 PCR ([facility])on 69-54-5008MAPW-CoV-2 (COVID-19) RNA RENATO+probe Ql (Unsp spec)Not detectedNormalNOT DETECTEDRiverview Health Institute Comment on above:Result Comment: This test is not yet approved or cleared by the [place] FDA. When there are no FDA-approved or cleared tests available, and other criteria are met, FDA can make tests available under an emergency access mechanism called an Emergency Use Authorization (EUA). The EUA for this test is supported by the [place] of Health and Human Service's (HHS's) declaration [...] consistent with SARS-CoV-2.Performed By: #### CVDTBH #### [facility] [address] [place] [address] Dr. Enrique AlbertoMATIC COVID-19 ANTIGENon 36-12-2942AFO StatementSEE BELOW NormalUniversity Hospitals Geneva Medical Center on above:Result Comment: This test [...] is revoked sooner.Performed By: #### CVDAGS #### [facility] [address] [place] [address] Dr. Enrique Gomez-CoV-2 (COVID-19) RNA RENATO+probe Ql (Unsp spec)NegativeNormal NEGATIVEThe [facility] WestComment on above:Performed By: #### CVDAGS #### [facility] [address] [place] [address] Dr. Enrique ParkinsonPAP ACOG PANEL 2: 30 to 65on 11-19-2021..NormalThe [facility] WestComment on above:Result Comment: Performed at: WBPerformed By: #### CVDAGS #### [facility] [address] [place] [address] Dr. Enrique Salazar Gdln ACOG Gwunswx30-87QrsvrvMtcSelect Medical Specialty Hospital - CantonComment on above:Performed By: #### CVDAGS #### [facility] [address] [place] [address] Dr. Enrique ParkinsonDIAGNOSIS:CommentNormParkview Health Montpelier HospitalComment on above: Result Comment: NEGATIVE FOR INTRAEPITHELIAL LESION OR MALIGNANCY. Performed at: WBPerformed By: #### CVDAGS #### [facility] [address] [place] [address] Dr. Enrique ParkinsonHPV AptimaNegativeNormalNegativeThe [facility] on above:Result Comment: This nucleic acid amplification test detects fourteen high-risk HPV types (16,18,31,33,35,39,45,51,52,56,58,59,66,68) without differentiation. Performed at: =GPerformed By: #### CVDAGS #### [facility] [address] [place] [address] Dr. Enrique ParkinsonMethodology:CommentMorrow County Hospital on above: Result Comment: This liquid based ThinPrep(R) pap test was screened with the use of an image guided system. Performed at: WBPerformed By: #### CVDAGS #### [address] [address] Dr[address] Enrique ParkinsonNote:CommentNoCleveland Clinic on above:Result Comment: The Pap smear is a screening test designed to aid in the detection of premalignant and malignant conditions of the uterine cervix. It is not a diagnostic procedure and should not be used as the sole means of detecting cervical cancer. Both false-positive and false-negative reports do occur. . Performed at: WBPerformed By: #### CVDAGS #### [facility] [address] [place] [address] Dr. Enrique ParkinsonPerformed by:CommentNoCleveland Clinic on above: Result Comment: Katarina Robbins, Maitre D' (ASCP) Performed at: WBPerformed By: #### CVDAGS #### [facility] [address] [place] [address] Dr. Enrique ParkinsonSpecimen adequacy:CommentMorrow County Hospital on above:Result Comment: Satisfactory for evaluation. Endocervical and/or squamous metaplastic cells (endocervical component) are present. Performed at: WBPerformed By: #### CVDAGS #### [facility] [address] [place] [address] Dr. Enrique Parkinson Vital Signs Date TimeVital SignValuePerforming FwlxuturmFoqlcpkw08-83-1658 10:21-0400Body uawveg138.64 cmRakesh Vernon MD Work Phone: [phone] [place], [place] 1774808-06-2025 10:21-0400 Body mass index (BMI) [Ratio]29.2 kg/h7YplksvsRakesh Vernon MD Work Phone: [phone]08-06-2025 10:21-0400 Body cjslya21.21 kgRakesh Vernon MD Work Phone: [phone]08-06-2025 10:21-0400 Diastolic blood vzllixev08 mm[Hg]Rakesh Vernon MD Work Phone: [phone]08-06-2025 10:21-0400 Heart rate78 /minDbebe Vernon MD Work Phone: [phone] [address]08-06-2025 10:21-0400 SaO2% (BldA) [Mass fraction]99 %Rakesh Vernon MD Work Phone: [phone] [place], [place] 1774808-06-2025 10:21-0400 Systolic blood zzllales089 mm[Hg]Rakesh Vernon MD Work Phone: [phone])[address]59 [address]03-18-2025 11:30-0400 Diastolic blood xctvgsgu19 mm[Hg]Jono Gonzalez III, MD Work Phone: [facility]03-18-2025 11:30-0400Heart rate61 /min Jono Gonzalez III, MD Work Phone: [facility]03-18-2025 11:30-0271MmA3% (BldA) [Mass fraction]100 %Jono Gonzalez III, MD Work Phone: [facility]03-18-2025 11:30-0400Systolic blood sxdfvsol094 mm[Hg]Jono Gonzalez III, MD Work Phone: [facility]03-18-2025 11:16-0400Respiratory rate 16 /minJosen Gonzalez III, MD Work Phone: [facility]03-18-2025 09:53-0400Body temperature 97.3 [degF]Jono Gonzalez III, MD Work Phone: [facility]03-04-2025 06:52-0500Body dhzird484.1 cmPacc 1 Work Phone: [facility]03-04-2025 06:52-0500Body mass index (BMI) [Ratio]28.25 kg/m2Pacc 1 Work Phone: [facility]03-04-2025 06:52-0500Body temperature 98.1 [degF]Pacc 1 Work Phone: [facility]03-04-2025 06:52-0500Body xyjkyw64 kg Pacc 1 Work Phone: [facility]03-04-2025 06:52-0500Diastolic blood mm[Hg]Pacc 1 Work Phone: [facility]03-04-2025 06:52-0500Heart rate55 /min Pacc 1 Work Phone: [facility]03-04-2025 06:52-0500Respiratory rate 14 /minPacc 1 Work Phone: [facility]03-04-2025 06:52-4808LkZ5% (BldA) [Mass fraction]100 %Pacc 1 Work Phone: [facility]03-04-2025 06:52-0500Systolic blood agvstqzw174 mm[Hg]Pacc 1 Work Phone: [facility]02-28-2025 09:54-0500Body yedivp054.6 cmJosen Gonzalez III, MD Work Phone: [facility] HospitalComment on above:semqda87-10-2249 09:54-0500Body mass index (BMI) [Ratio]27.79 kg/m2Jono Gonzalez III, MD Work Phone: [facility]02-28-2025 09:54-0500Body lxdwyu16.1 kgJono Gonzalez III, MD Work Phone: [facility]02-28-2025 09:54-0500Diastolic blood mm[Hg]Jono Gonzalez III, MD Work Phone: [facility]02-28-2025 09:54-0500Heart rate75 /min Jono Gonzalez III, MD Work Phone: [facility]02-28-2025 09:54-6158OoW3% (BldA) [Mass fraction]99 %Jono Gonzalez III, MD Work Phone: [facility]02-28-2025 09:54-0500Systolic blood rtyypdvc152 mm[Hg]Jono Gonzalez III, MD Work Phone: [facility]01-28-2025 13:18-0500Body jnmzku01.2 kgSujosef Pelayo MD Work Phone: [facility]01-28-2025 13:18-0500Diastolic blood qfgdhitp69 mm[Hg]Elgin Pelayo MD Work Phone: [facility]01-28-2025 13:18-0500Heart rate83 /min Elgin Pelayo MD Work Phone: [facility]01-28-2025 13:18-6367IvZ6% (BldA) [Mass fraction]100 %Elgin Pelayo MD Work Phone: [facility]01-28-2025 13:18-0500Systolic blood tvontafg120 mm[Hg]Elgin Pelayo MD Work Phone: [facility]11-25-2024 14:23-0500Body sanskz174.6 cmTlai Briscoe MD Work Phone: noLake Regional Health SystemYrwbnxkvux59-74-7195 14:23-0500Body mass index (BMI) [Ratio]25.82 kg/m2Breann Briscoe MD Work Phone: noLake Regional Health SystemBiyjajdwse05-38-4290 14:23-0500Body yowlpd30.58 kgToalphonse Briscoe MD Work Phone: NOLake Regional Health SystemUdlxhcvbqp93-78-9778 09:35-0400Diastolic blood qfgaysjf69 mm[Hg]Dave Penny DO Work Phone: NOTY Tpebhybwpt23-98-1015 09:35-0400Heart rate78 /min Dave Penny DO Work Phone: NOLake Regional Health SystemLxjglwojny20-64-7369 09:35-5503EcJ8% (BldA) [Mass fraction]99 %Dave Penny DO Work Phone: NOLake Regional Health SystemZoqqejhiep50-02-5951 09:35-0400Systolic blood xxmsipkx004 mm[Hg]Dave Penny DO Work Phone: NOLake Regional Health SystemYiwrjfofps27-79-6346 10:27-0500Diastolic blood hzxrlows89 mm[Hg]Aruba Dennison DO Work Phone: [phone]01-23-2024 10:27-0500 Heart rate77 /minAruba Dennison DO Work Phone: [phone]01-23-2024 10:27-0500 SaO2% (BldA) [Mass fraction]98 %Aruba Dennison DO Work Phone: [facility]01-23-2024 10:27-0500 Systolic blood mm[Hg]Aruba Dennison DO Work Phone: [phone]01-23-2024 08:01-0500 Body nukvti777.6 cmAruba Dennison DO Work Phone: [phone]01-23-2024 08:01-0500 Body mass index (BMI) [Ratio]29.05 kg/i6Wudqk Dennison DO Work Phone: [phone]01-23-2024 08:01-0500 Body ssnokuxwsnp70.1 [degF]Aruba Dennison DO Work Phone: [phone] [place], [place] 3717201-23-2024 08:01-0500 Body sgaahe48.65 kgAruba Dennison DO Work Phone: [facility]01-23-2024 08:01-0500 Respiratory rate16 /minAruba Dennison DO Work Phone: [facility]06-01-2023 14:45-0400 Body kxoqxy533.64 cmLkendy Chacko Other [employer] Other 06-01-2023 14:45-0400Body mass index (BMI) [Ratio] 30.18 kg/b9YlxiykMirta Chacko Other [employer] Other 06-01-2023 14:45-0400Body rgiisiggixy06.8 [degF]Mirta Chacko Other [employer] Other 06-01-2023 14:45-0400Body bqvjpi55.82 kgMirta Ginna Other [employer] Other 06-01-2023 14:45-0400Respiratory rate18 /Rolandaman Chacko Other [employer] Other 06-01-2023 14:45-0491LjV8% (BldA) [Mass fraction]98 % Mirta Ginna Other [employer] Other Encounters Encounter DateEncounter TypeCare ProviderFacilityStart: 02-18-2025 End: 34-92-3823uganicinmjCgegrvt M Hoy MD Work Phone: [facility] Work Phone: Start: 02-18-2025 End: 39-62-1052Jtyidya encounter procedureNeelima Rangel APRN-[facility] [place] Work Phone: Start: 10-16-2024 End: 36-60-1005mtkjablctbIYQP A COSTIN IIIFacility:[facility] Start: 10-16-2024 End: 43-62-4763Vtphdul encounter procedureJono Gonzalez MD Work Phone: General SurgeryComment on above:Post-operative state (Primary Dx)Start: 10-02-2024 End: 53-12-9194Szmdsffwm encounterLoree Mona CARDENAS Work Phone: General SurgeryStart: 51-67-7380buvndpbcztUMMJ A COSTIN IIIFacility:[facility] Hospitaltart: 09-30-2024 End: 06-23-6281Ivasipiaxc hospital visit by physicianJono Gonzalez MD Work Phone: Ambulatory SurgeryComment on above:Calculus of gallbladder without cholecystitis without obstruction [K80.20]Start: 09-16-2024 End: 34-97-7863V-mail encounter from John Moreland APRN.CNP Work Phone: Pre AnesthesiaStart: 09-16-2024 End: 53-70-4631Gfbpznonx to establishmentRed De Leon 1 Work Phone: Pre AnesthesiaStart: 09-16-2024 End: 43-29-9097iqqqtacihnTANF A COSTIN IIIFacility:[facility] Start: 09-16-2024 End: 03-72-0844Tlzvkdewdz consultationPagabriela De Leon 1 Work Phone: Pre AnesthesiaComment on above:Pre-op examination (Primary Dx); Uncomplicated asthma, unspecified asthma severity, unspecified whether persistent; Pure hypercholesterolemia, unspecified; Hypertension, unspecified type; Sleep apnea, unspecified type; Biliary calculus of other site without obstruction; Hypothyroidism, unspecified typeStart: 29-65-9741Fpieppwig for other preprocedural examinationJONO FigueroaKettering Health Greene MemorialStart: 09-16-2024 End: 65-44-4703Bcxjricgcioet examination doneRed De Leon 1 Work Phone: [facility] Work Phone: Start: 09-15-2024 End: 95-18-2949Ulkkgbkxu encounterJono Gonzalez MD Work Phone: General SurgeryComment on above:Schedule SurgeryStart: 09-12-2024 End: 66-56-8201Oeodxks encounter procedureJono Gonzalez MD Work Phone: General SurgeryComment on above:Calculus of gallbladder without cholecystitis without obstruction (Primary Dx)Start: 09-12-2024 End: 80-82-0847nigklmytasNBCX A COSTIN IIIFacility:[facility] Start: 09-11-2024 End: 19-75-2246Ktaxriplh encounterLordavid Hsu RN Work Phone: General SurgeryStart: 11-87-4042gnlbbcgyriBpnfgoso:GS BellevueStart: 08-14-2024 End: 02-40-3480Xotbpcoxa encounterSjair Pelayo MD Work Phone: Pulmonary MedicineComment on above:Image requestStart: 08-12-2024 End: 50-04-7353qhkpefftodOVUGB R PANDITFacility:[facility] Hospitaltart: 08-12-2024 End: 49-66-2105Oargvlc encounter procedureSjair Pelayo MD Work Phone: Pulmonary MedicineComment on above:Severe persistent asthma without complication (Primary Dx); Shortness of breathStart: 07-02-2024 End: 94-08-9522Oaynagedt encounterNicole Penny DO Work Phone: noms [facility] [facility] R[address]TEStart: 06-18-2024 End: 46-93-5914eayfaetfxlMxwfmfv J DittyFacility:[facility] Avontart: 06-09-2024 End: 04-65-2697Prugrz outpatient new 45 minutesTodd Nic Briscoe MD Work Phone: noMS SWS ALLComment on above:Wheeze (Primary Dx); Chronic rhinitis; Recurrent sinus infectionsStart: 06-09-2024 End: 30-85-1128kmtywigyfrULOV E BHARATHBASEKNot AvailableStart: 06-09-2024 End: 88-12-1789Bqhwar flowsheetToalphonse Briscoe MD Work Phone: noms SWS ALLStart: 06-09-2024 End: 47-57-9472Qpgwui flowsheetToalphonse Briscoe MD Work Phone: NODC SWS ALLStart: 06-09-2024 End: 15-83-3113Qtnexc OnlyToalphonse E Rachna MILES Work Phone: noms External Department UnsolicitedStart: 05-22-2024 End: 02-37-0854Ptumpo OnlyNot In System Ref ProvProMedica Physicians General SurgeryStart: 05-15-2024 End: 83-21-3374Lssoatcem encounterRegmario HUMPHREYAProMedica Physicians General SurgeryStart: 04-16-2024 End: 19-15-4073Tlpvom flowsheetNicole Penny DO Work Phone: noms [address]TEStart: 04-16-2024 End: 58-46-6967Xfjbnt flowsheetNicole Penny DO Work Phone: noMS [address] R[address]TEStart: 04-16-2024 End: 97-38-9923fbdjivuwltQFFEDT DANNERNot AvailableStart: 04-16-2024 End: 06-78-7236Ktvhvo outpatient visit 25 minutesNicole Penny DO Work Phone: noms [place] [address]TEComment on above:Hypersomnia (Primary Dx); JANIS (obstructive sleep apnea); Snoring; Memory lossStart: 08-07-2023 End: 93-42-8759Dyhpeauuq department patient visitShen Dennison DO Work Phone: uh [facility] Emergency MedicineComment on above:Fall, initial encounter (Primary Dx); Closed head injury, initial encounterStart: 06-29-2023 End: 83-60-6298Uaedjllal Result EncounterAmy Dick CASTILLO Work Phone: noms External Department UnsolicitedStart: 06-29-2023 End: 01-48-2388Trjsoewct Result EncounterJennifer CASTILLO Work Phone: noms External Department UnsolicitedStart: 06-27-2023 End: 78-76-2909Dchacmvag Result EncounterJennifer CASTILLO Work Phone: noms External Department UnsolicitedStart: 06-27-2023 End: 53-58-3872Jazrgrhqe Result EncounterAmy Dick CASTILLO Work Phone: noms External Department UnsolicitedStart: 12-14-2022 End: 42-08-2009kxxgdzobptTykguo Bailey Other [facility] [employer] Other Start: 23-87-8979Ayvfih outpatient new 30 minutes [facility]ta [facility] ClydeStart: 00-78-9179Pnlhsycct for general adult medical examination without abnormal findingsDR [facility] Start: 08-08-2022 End: 30-04-5594crwofoycghXF RAKESH HOYFacility:X8Htmeg: 08-08-2022 End: 42-24-1846Aiksjdcoy for general adult medical examination without abnormal findingsDR RAKESH YFacility:C3Frhjk: 02-27-2022 End: 91-52-8158zieykowtyvZR RAKESH HOYFacility:U0Bidhz: 01-04-2022 End: 85-15-1132noalvaggaqLI RAKESH HOYFacility:I6Vfzin: 11-14-2021 End: 55-59-8285cxkxmjgdxfYB RAKESH HOYFacility:M1Vztcc: 10-07-2021 End: 77-27-8189foirteohuhSQ RAKESH HOYFacility:H1 Procedures DateProcedureProcedure DetailPerforming ClinicianStart: 86-36-0410Iui routine ecg w/least 12 lds i&r onlyCcf ProviderStart: 09-30-2024 End: 88-16-4697Zqjg surg cholecystectomy w/cholangiographyJohn A Carlos MD Work Phone: Start: 93-44-3613Sktcfrrr diphtheriaTlai Briscoe MD Work Phone: Start: 79-61-2419Jofpy of gammaglobulin iga igd igg igm eachBreann Briscoe MD Work Phone: Start: 60-59-7595Phnvdxuy blood count with white cell differential, automatedBreann Briscoe MD Work Phone: Start: 92-90-0079BPEIPJUYONGY AB (23 SEROTYPE)Breann Briscoe MD Work Phone: Start: 20-89-6843YKYFDMDD LABSNot In System Ref Prov Start: 66-14-1587VW CERVICAL SPINE WO IV CONTRASTDOUGLAS HOYStart: 94-92-5411ED THORACIC SPINE WO IV CONTRASTDOUGLAS HOYStart: 06-64-1162IM HEAD WO IV CONTRAST RAKESH HOYStart: 29-21-5673KIH 12-LEADDOUGLAS HOYStart: 19-88-1991QLB W Auto Differential panel - BloodDOUGLAS HOYStart: 83-07-8074Kfwirbjeizdqt metabolic 2000 panel - Serum or PlasmaDOUGLAS HOYStart: 72-98-7368XQZSVSD-INRDOUGLAS HOY Start: 10-48-2486Zp cervical spine w/o contrast materialAngela C Sales DO Work Phone: Start: 39-84-1772Ii head/brain w/o contrast material Neelima C Sales DO Work Phone: Start: 29-11-4636Lfv routine ecg w/least 12 lds trcg only w/o i&rAngela C Sales DO Work Phone: Start: 35-91-6757Zawamchdcsfit metabolic panelAngela C Sales DO Work Phone: Start: 77-55-9718KD TOMOSYNTHESIS SCREENING Arya CASTILLO Work Phone: Start: 57-53-8468AlueurzfbfoWciykg Penny DO Work Phone: Start: 04-49-4943NB DEXA AXIAL SKELETONAmy Dick CASTILLO Work Phone: Plan of Treatment DateCare ActivityDetailAuthorStart: 87-42-4736Zfvst microalbumin profile DTaP,Tdap,Td Vaccine (2 - Td or Tdap)[facility] Hospitaltart: 68-16-4193Fvqafzuu ScreeningDiabetes ScreeningZanesville City Hospitaltart: 06-02-2025 End: 92-65-2459Fbqfkcm encounter eepavktqy13/18/2025 11:00 AM EST Procedure Visit NOMSherly TOUSSAINT [address] [place], [id number] Jennifer Jennings PA [address] [place] [address] NOMS Jorge OBGYNStart: 03-16-2025 Influenza vaccinationHaywood Regional Medical Centertart: 11-10-2024 End: 08-52-6540Edibjri encounter ciyepbxrh75/28/2025 2:00 PM EDT Office Visit Pulmonary Medicine [address] [place], [place] [id number] Jazmyne Liu APRN.ARTIST MODEL [address] [facility] [place] [address] Return in about 3 months (around 11/10/2024).Pulmonary MedicineComment on above:Return in about 3 months (around 11/10/2024).Start: 11-10-2024 End: 29-07-3840bbunapjufqFasashvup LabComment on above:Severe persistent asthma without complication [J45.50]Start: 10-16-2024 End: 71-80-4541Nksniua encounter oxonrshcd34/03/2025 8:30 AM EDT Office Visit General Surgery [address] [place] [id number] Jono Gonzalez III, MD [address] [place], [place] [id number] POST OP [place] W GRAMSGeneral SurgeryComment on above:POST OP [place] W GRAMSStart: 09-30-2024 End: 96-92-9313Xtxpsrhvh to same day surgery wgczcn6409/30/2024 10:30 AM EDT - 09/30/2024 11:35 AM EDT Surgery Ambulatory Surgery [address] [place] [address] Jono Gonzalez III, MD [address] [place] [address] LAPAROSCOPIC CHOLECYSTECTOMY WITH GRAMSAmbulatory SurgeryComment on above:LAPAROSCOPIC CHOLECYSTECTOMY WITH GRAMS Start: 09-30-2024 End: 36-43-9893Xony surg cholecystectomy w/cholangiographyLAPAROSCOPIC CHOLECYSTECTOMY WITH GRAMS Calculus of gallbladder without cholecystitis without obstruction 09/30/2024 10:30 AM EDTMC ASC LORAINStart: 20-67-1955Vuiajrbsdz hospital visit by navmorhyo94/18/2025 10:30 AM EDT Hospital Encounter Ambulatory Surgery [address] [place] [address] Jono Gonzalez III, MD [address] [place] [address] Calculus of gallbladder without cholecystitis without obstruction [K80.20] Ambulatory SurgeryComment on above:Calculus of gallbladder without cholecystitis without obstruction [K80.20]Start: 09-12-2024 End: 75-48-2578Optjlbr encounter rpuuzhnvn41/28/2025 12:00 PM EST Office Visit General Surgery [address] [place] [address] Jono Gonzalez III, MD [address] [place] [address] CholelithiasisGeneral SurgeryComment on above:CholelithiasisStart: 07-03-2024 End: 31-61-0486Zbxdjbv encounter tbeeuwcyu97/19/2024 2:20 PM EST Office Visit [facility] [address] [place] [address] Breann Briscoe MD [address] [place] [address] [facility] ALLStart: 98-75-4141Gnazvhsvw for malignant neoplasm of breastMammogramNOMS HealthcareStart: 06-09-2024 End: 79-07-9790Fyzgkor encounter rhidqefms74/25/2024 2:40 PM EST Office Visit [facility] [address] [place] [address] Breann Briscoe MD [address] [facility] [address] [place] [address] ArrivedNOMS [facility] ALLComment on above:ArrivedStart: 06-09-2024 End: 78-10-0287MXA W Auto Differential panel - BloodCBC and differential Lab Routine Recurrent sinus infections Expected: 06/09/2024 (Approximate), Expires: 06/09/2025NOMS HealthcareComment on above:Expected: 06/09/2024 (Approximate), Expires: 06/09/2025Start: 06-09-2024 End: 91-19-8235Qjlfpwjhyu / Tetanus Antibody PanelDiphtheria / Tetanus Antibody Panel Lab Routine Recurrent sinus infections Expected: 06/09/2024 (Approximate), Expires: 06/09/2025NOMS HealthcareComment on above:Expected: 06/09/2024 (Approximate), Expires: 06/09/2025Start: 06-09-2024 End: 93-63-4623WvD [Mass/volume] in Serum or PlasmaIgA Lab Routine Recurrent sinus infections Expected: 06/09/2024 (Approximate), Expires: 06/09/2025NOMS HealthcareComment on above:Expected: 06/09/2024 (Approximate), Expires: 06/09/2025Start: 06-09-2024 End: 87-04-9207EdB [Units/volume] in Serum or PlasmaIgE Lab Routine Recurrent sinus infections Expected: 06/09/2024 (Approximate), Expires: 06/09/2025NOMS HealthcareComment on above:Expected: 06/09/2024 (Approximate), Expires: 06/09/2025Start: 06-09-2024 End: 47-26-2176KkN [Mass/volume] in Serum or PlasmaIgG Lab Routine Recurrent sinus infections Expected: 06/09/2024 (Approximate), Expires: 06/09/2025[facility] Work Phone: Comment on above:Expected: 06/09/2024 (Approximate), Expires: 06/09/2025Start: 06-09-2024 End: 69-60-8833GgC [Mass/volume] in Serum or PlasmaIgM Lab Routine Recurrent sinus infections Expected: 06/09/2024 (Approximate), Expires: 06/09/2025NOAR HealthcareComment on above:Expected: 06/09/2024 (Approximate), Expires: 06/09/2025Start: 06-09-2024 End: 37-48-3504Jgsfuku toxoid, IgGTetanus toxoid, IgG Lab Routine Recurrent sinus infections Expected: 06/09/2024 (Approximate), Expires: 06/09/2025NOMS HealthcareComment on above:Expected: 06/09/2024 (Approximate), Expires: 06/09/2025Start: 05-28-2024 End: 75-90-8271Kaxicbr encounter /13/2024 4:00 PM EST Office Visit [facility] [address] [place] [id number] Jennifer Jennings PA [address] [place] [address] NOMS BCP OBStart: 62-95-0056Njuip-19 Vaccine ( season)Covid-19 Vaccine ( season)[facility] Hospitaltart: 03-16-2024 Influenza vaccinationNOAR HealthcareStart: 71-56-7637Jpjzjapwd vaccination Influenza Vaccine (#1)[facility] RehabilitationStcurtiss: 94-07-4235BDOQH-19 Vaccine (3 - Pfizer series)COVID-19 Vaccine (3 - Pfizer series)[facility]: 83-80-2257Hoavvohnwbhmtv of varicella zoster vaccineZoster (Shingles) Vaccine (1 of 2)[facility] Centertart: 30-88-2330Qhetjbcyvbpp Vaccine: 50+ (1 of 1 - PCV)Pneumococcal Vaccine: 50+ (1 of 1 - PCV)[facility] Hospitaltart: 55-76-7435Iqjfgoec Vaccine (1 of 2)Shingrix Vaccine (1 of 2)[facility]: 50-12-3262Hxytns Vaccines (1 of 2)Zoster Vaccines (1 of 2)[facility]: 95-99-4161Ugbwd panel Lipid ScreeningZanesville City Hospitaltart: 01-86-3759Imprccrlo for malignant neoplasm of colonZanesville City Hospitaltart: 38-27-9345Nrifzlauq for malignant neoplasm of breastUnMercy Health St. [facility]: 78-76-2759Alyltojsr for malignant neoplasm of cervixFulton State HospitalStart: 30-95-2693QSgR/Tdap/Td Vaccines (1 - Tdap)DTaP/Tdap/Td Vaccines (1 - Tdap)[facility]: 58-00-5194Awnwrjhxv for malignant neoplasm of cervixLouis [facility]: 47-78-9441ZBqJ,Tdap and Td Vaccines (1 - Tdap)DTaP,Tdap and Td Vaccines (1 - Tdap)[facility]: 13-30-1777Wzuhwkxsz B Vaccine (1 of 3 - 19+ 3-dose series)Hepatitis B Vaccine (1 of 3 - 19+ 3-dose series) [facility]: 19-86-0654Cnwkr microalbumin profileDTaP,Tdap,Td Vaccine (1 - Tdap)[facility]: 40-39-5890Ceisc BMI ScreeningAdult BMI ScreeningHaywood Regional Medical Centertart: 63-10-5840Kbwmxy PCP Team Chronic Disease VisitAnnual PCP Team Chronic Disease VisitZanesville City Hospitaltart: 1983 Anxiety ScreeningAnxiety ScreeningZanesville City Hospitaltart: 17-08-5394LY Controlled (<130/80)BP Controlled (<130/80)[facility]: 62-20-0239Pykpbomaxl ScreeningDepression ScreeningZanesville City Hospitaltart: 91-39-7325Oojgepud mellitus screeningDiabetes ScreeningUnMercy Health St. Anne Hospital: 1983 Hepatitis C screeningHepatitis C ScreeningC[facility] Start: 98-88-7617YVG screeningHIV ScreeningZanesville City Hospitaltart: 1983 SpirometrySpirometryZanesville City Hospitaltart: 24-78-3869Qxcsmrewzt Screening Depression ScreeningReg[facility] SystemStart: 45-82-9383Zcrfarw Screening Tobacco ScreeningProWilson Street Hospital SystemStart: 85-14-7376JOM Vaccines (1 of 1 - Standard series)MMR Vaccines (1 of 1 - Standard series)[facility]: 12-57-7229Tkcqqvtdd B Vaccines (1 of 3 - 3-dose series)Hepatitis B Vaccines (1 of 3 - 3-dose series)[facility]: 69-07-9871YAZ screeningHIV ScreeningLouis Stokes [facility]: 67-68-0701Dnruv panelLipid PanelLouis Stokes [facility]: 99-48-0779Bmftbgkcz for malignant neoplasm of colonUnMercy Health St. [facility]: 95-30-5579Ebwpca Adult PhysicalYearly Adult PhysicalUnOhio Valley HospitalEC 12 leadECG 12 lead ECG STAT 08/07/2023 8:33 AM [facility] Service Area Work Phone: End: 76-19-5614ISO COMPLETEAvita Health System [facility] Work Phone: Comment on above:ONCE for 1 Occurrences starting 09/30/2024 until 09/30/2024 End: 29-55-2651EYRQDO OXIDE, EXHALEDNITRIC OXIDE, EXHALED PFT Routine Severe persistent asthma without complication 1 Occurrences starting 08/12/2024 until 09/12/2025[facility] Work Phone: Comment on above:1 Occurrences starting 08/12/2024 until 09/12/2025 End: 96-07-2307AIPJZGXCHF WITH DILATOR IF OBSTRUCTEDSPIROMETRY WITH DILATOR IF OBSTRUCTED PFT Routine Severe persistent asthma without complication 1 Oc currences starting 08/12/2024 until 6Cgood [facility]aritan hospital ClinicComment on above:1 Occurrences starting 08/12/2024 until 09/12/2025STREPTOCOCCUS PNEUMONIA AB (IGG) (23 SEROTYPES)STREPTOCOCCUS PNEUMONIA AB (IGG) (23 SEROTYPES) Lab Routine Recurrent sinus infections Ordered: 06/09/2024NOAR HealthcareComment on above: Ordered: 06/09/2024Tissue Pathology biopsy reportAvita Health System [facility] Hospital Work Phone: Comment on above:Release Upon Ordering for 1 Occurrences starting 09/30/2024, 1 completed Payers DatePayer CategoryPayerPolicy [id number] 03-79-3374VebkDzilth-Na-[facility]-Dith-[facility]le Health [id number] 48-34-8142PiqoDzilth-Na-[facility]-Dith-[facility] Health [facility] Managed [place] [id number]8.12540-06-3846Asubomk 1.2840.726122.1.13.647.2.7.3.598[id number] 2.0.1.216784.3.57[id number] 2..1.139448.3.57[id number] 2..1.037444.3.579.[id number] 2..840.1.711601.3.579.2.15893-65-8084Lvzfqxa9936261 2..840.1.323284.3.579.[id number] 2..840.1.905790.3.579.2.8[id number] 2.840.1.850209.3.579.2.067340-02-2932Vjqcwlz7213404 2..840.1.735592.3.579.2.799478-07-4790Hbrn-afu19012989784-89-6499Efxblaz [id number] 2.16840.1.793039.3.579.2.531 Social History DateTypeDetailFacilityUnknown if ever smokedNosaint luke's health system [employer] Other Start: 04-16-2024 End: 63-71-3546Xdr Assigned At BirthNosaint luke's health system [employer] Other Tobacco smoking status NHISTobacco smoking consumption unknownRegency Hospital [facility] West SystemStart: 46-99-4740Rmb Assigned At BirthNot on file [facility] Work Phone: Start: 07-28-2023 End: 26-09-0939Vsqtxbqg to SARS-CoV-2 (event)Not sureUnOhio Valley Hospital Work Phone: Start: 05-23-2023 End: 73-48-0315Laogabk smoking status NHISNever smoked tobaccoNOMS Healthcare Start: 04-16-2024 End: 77-53-9333Lgcjtts of Social functionNOMS HealthcareStart: 45-53-6908Grf assigned at birthFemalUintah Basin Medical Center HealthcareStart: 64-32-8675Qimphr identityIdentifies as female gender (finding)[facility] HealthcareStart: 24-68-0494Sprigr orientation Heterosexual (finding)[facility] HealthcareStart: 38-22-3140Yqduzit use and exposure Smokeless tobacco non-userZanesville City Hospitaltart: 17-16-6231Bhlbkwyz Score (1- 100), lower number is lower oqpv90PKOQ HealthcareStart: 18-81-1356WdgDayouu (finding)[facility] SystemStart: 09-16-2024 End: 51-40-3696Kvqtbofsl beverage intakeLifetime non-drinker (finding)[facility] Clinical Notes 12-14-2022 to 05-22-2025 Note Date & SxuxYgrpDifkdsrg81-52-[address] Vernon, see in media tab dated 05/11/25. Message left for patient to call and schedule an EUS/ERCP with Dr. Chantell Lopez.[facility]04-03-2025 NoteHNO ID: [id number] Author: JONO GONZALEZ III, MD Service: ? [...] Return to office PRN. Jono Gonzalez III [facility]04-03-2025 History of Present illness Narrative* Jono [...] Jono Gonzalez III, MD documented in [place] encounterRebecca [place] [address]-20-2025 Telephone encounter Note * Telephone Encounter - [...] then would need to be off longer. [facility] Work Phone: [phone]126 Miscellaneous Notes* Telephone Encounter - Shweta Hsu [...] to be off longer. documented in this encounterCommunity Memorial Hospital03-18-2025 NoteHNO ID: [id number] Author: GOSIA SÁNCHEZ RN Service: ? Author Type: Registered Nurse Type: Nursing Progress Note Filed: 09/30/2024 11:50 Note Text: Dr. Elise has cleared pt for discharge. EKG WNL. Chest heaviness is gone. [facility]03-18-2025 Nurse Note* Gosia Sánchez RN - 09/30/2024 11:[address] Elise has cleared pt for discharge. EKG WNL. Chest heaviness is gone. [facility]03-18-2025 Nurse Note* Gosia Sánchez RN - 09/30/2024 11:[address] Elise has cleared pt for discharge. EKG WNL. Chest heaviness is gone. * Gosia Sánchez RN - 09/30/2024 11:14 AM EDT C/O chest heaviness. VSS. O2 on at 2L. H/O recent chest heaviness. ND ruled out. documented in this encounterCommunity Memorial Hospital03-18-2025 NoteHNO ID: [id number] Author: GOSIA SÁNCHEZ RN Service: ? Author Type: Registered Nurse Type: Nursing Progress Note Filed: 09/30/2024 11:16 Note Text: C/O chest heaviness. VSS. O2 on at 2L. H/O recent chest heaviness. ND ruled out.[facility]03-18-20[facility] Nurse Note* Gosia Sánchez RN - 09/30/2024 11:14 AM EDT C/O chest heaviness. VSS. O2 on at 2L. H/O recent chest heaviness. ND ruled out. [facility]03-18-2025 NoteHNO ID: [id number] Author: EUSEBIO VENEGAS APRN.INTERVENTIONAL RADIOLOGY TECHNOLOGIST Service: Anesthesiology Author Type: Nurse Life Enrichment Director Type: Anesthesia Procedure Notes Filed: 09/30/2024 09:30 Note Text: ANESTHESIOLOGY PROCEDURE NOTE Airway General Information Procedure Start Time/Medication Administration: 09/30/2024 9:19 AM Procedure End Time: 09/30/2024 9:19 AM Patient location during procedure: OR Patient identity confirmed: arm band and patient Staffing INTERVENTIONAL RADIOLOGY TECHNOLOGIST: Eusebio Venegas APRN.INTERVENTIONAL RADIOLOGY TECHNOLOGIST Performed by: INTERVENTIONAL RADIOLOGY TECHNOLOGIST Indications and Patient Condition Indications for airway [...] September 30, 2024 TIME: 9:30 AM CSN: [id number] Memorial Hospital03-18-2025 Surgery Surgical operation note* Operative Report - Jono Gonzalez III, MD - 09/30/2024 9:12 AM EDT OPERATIVE REPORT LOG ID: [id number] SURGERY/PROCEDURE DATE: 09/30/2024 INCISION/PROCEDURE START TIME: 9:27 AM INCISION CLOSE/PROCEDURE END TIME: 9:44 AM SURGEON: Jono Gonzalez III, MD HOOP COILING MACHINE OPERATOR: Yesenia Monson PA-C OPERATION: Laparoscopic cholecystectomy (46670). ANESTHESIA: GETA and 20 mL of 0.5% [...] DATE: September 30, 2024 TIME: 9:45 AM [facility]03-18-2025 Surgical operation note* Operative Report - Jono Gonzalez III, MD - 09/30/2024 9:12 AM EDT OPERATIVE REPORT LOG ID: [id number] SURGERY/PROCEDURE DATE: 09/30/2024 INCISION/PROCEDURE START TIME: 9:27 AM INCISION CLOSE/PROCEDURE END TIME: 9:44 AM SURGEON: Jono Gonzalez III, MD HOOP COILING MACHINE OPERATOR: Yesenia Monson PA-C OPERATION: Laparoscopic cholecystectomy (89485). ANESTHESIA: GETA and 20 mL of 0.5% [...] 2024 TIME: 9:45 AM documented in this encounterCommunity Memorial Hospital03-18-2025 History and physical note * Jono [...] DATE: September 30, 2024 TIME: 8:39 AM [facility]03-18-2025 History and physical note* Jono Gonzalez [...] 2024 TIME: 8:39 AM documented in this encounterCommunity Memorial Hospital03-18-2025 Hospital Discharge instructions* Discharge Instr - Other Orders* Jono Gonzalez III, MD - 09/30/2024 8:39 AM EDT If you have waterproof skin glue covering the wound(s), you do not need any additional dressing. Donot use ANY lotions or ointments as these will remove the glue prematurely and the skin edges may separate. [place] and Stitches- call the office for removal, [...] per day. We also recommend taking an elud-ywl-nroaplv stool softer (ie Colace). For questions or concerns occurring immediately post-operatively regarding your IV site, intubation(ie: sore throat, teeth/mouth issues), urinary issues, or anything else not related to the surgicalsite: CALL THE FACILITY WHERE YOUR PROCEDURE WAS DONE [facility] Operating Room: [facility] [place]: CALL THE OFFICE If you have any questions or concerns. CALL IMMEDIATELY IF YOU HAVE NAUSEA/VOMITING, FEVER GREATER THAN 101, INCREASED ABDOMINAL PAIN, INCREASED PAIN, BULGING OR REDNESS AROUND THE INCISION, OR A NEWONSET OF PUS DRAINAGE FROM THE WOUND. Contact my office at [phone] to arrange a follow up appointment in 14-21 days. Jono Gonzalez III, MD documented in this encounterCommunity Memorial Hospital03-04-2025 Telephone encounter Note * Telephone Encounter - Geovany Moreland APRN.CNP - 09/16/2024 1:37 PM EST Hi , It was a pleasure seeing you this morning in the Pre-Anesthesia Clinic. I wanted to help with your request to establish care with a primary care physician at [facility]. Unfortunately, many of the physicians at that location are not currently accepting new patients. You can reach the [facility] Scheduling number at [phone], and they may be able to help you find aphysician who is accepting new patients. Additionally, I ve heard that the [place] location (a few miles further East) has primary care providers with availability, and their contact number is [phone]. I hope this helps, and feel free to reach out if you need anything further! Best regards, Geovany Moreland APRN.CNP [facility]03-04-2025 Miscellaneous Notes* Telephone Encounter - Geovany Moreland APRN.CNP - 09/16/2024 1:37 PM EST Hi , It was a pleasure seeing you this morning in the Pre-Anesthesia Clinic. I wanted to help with your request to establish care with a primary care physician at [facility]. Unfortunately, many of the physicians at that location are not currently accepting new patients. You can reach the [facility] Scheduling number at [phone], and they may be able to help you find aphysician who is accepting new patients. Additionally, I ve heard that the [place] location (a few miles further East) has primary care providers with availability, and their contact number is [phone]. I hope this helps, and feel free to reach out if you need anything further! Best regards, Geovany Moreland APRN.SALOMON documented in this encounterCommunity Memorial Hospital03-04-2025 Instructions* Patient Instructions* Geovany Moreland APRN.CNP - 09/16/2024 7:21 AM EST PATIENT PREOPERATIVE INSTRUCTIONS Jono Gonzalez III has scheduled you for your procedure at this surgery center: [facility]: [phone] --[address] [place] [address]. Please read below carefully for your personalized instructions. [facility]: [phone] --[address] [place] [address]. Please enter through the entrance closest to [...] office. If you are currently using a qhel-rhq-cmjr injectable or oral medication for diabetes or [...] - YOU MUST HAVE A RESPONSIBLE DRY CLEANER HELPER TAKE YOU HOME. A WOOD PILER OR COAT FELLER CANNOT BE MADE A RESPONSIBLE DRY CLEANER HELPER. - We recommend that a responsible person [...] Advance Directive, please fax a copy to [phone] or email to for it to be [...] your chart that day. documented in this encounterCommunity Memorial Hospital03-04-2025 History and physical note * Geovany [...] Had COVID infection 08/31/24, was treated at [facility]. Today she is asymptomatic, Lungs CTA, breathing [...] STOP-Bang Score: 0 (JANIS CPAP compliant ) [id number] Score: Age: <65 Sex: female CHF history: No Hypertension history: Yes Stroke/TIA/thromboembolism history: No Vascular disease history: No Diabetes history: No AEC4QG3-EGRp Score: 2 ARISCAT Score: Age: 51-80 Preoperative [...] fevers. Neuro: No history of TIA's, stroke, MINING ENGINEER tumor, impaired sensorium, hemiplegia, paraplegia or quadraplegia. [...] or incontinence,, stones or chronic kidney disease AUTOMATION DESIGN ENGINEER: Negative for abnormal vaginal bleeding, abnormal vaginal [...] in care everywhere [facility]) The [facility] Test Date: 2024-08-30 Pat Name: PRAVEENA DACOSTA Department: Room: - Gender: Female Photographic Process Worker: : 1965 Requested By: RAKESH VERNON Order Number: [id number] Reading MD: RAKESH VERNON Measurements Intervals [place] Rate: 96 P: 65 [place]: 174 QRS: [...] medicine myocardial perfusion scan. Dictated by: Vika Collzao M.D. on 03/06/2024 08/31/24 CT/CT angio chest [...] Praveena Dacosta DATE: 09/16/2024 TIME: 7:52 AM [facility]03-04-2025 History and physical note* Geovany Moreland [...] cholangiogram. at the request of Dr. Jono Gonzaelz III for consultation. My final recommendation will [...] Had COVID infection 08/31/24, was treated at [facility]. Today she is asymptomatic, Lungs CTA, breathing [...] STOP-Bang Score: 0 (JANIS CPAP compliant ) [id number] Score: Age: <65 Sex: female CHF history: No Hypertension history: Yes Stroke/TIA/thromboembolism history: No Vascular disease history: No Diabetes history: No MEP2IH8-RCYr Score: 2 ARISCAT Score: Age: 51-80 Preoperative [...] fevers. Neuro: No history of TIA's, stroke, MINING ENGINEER tumor, impaired sensorium, hemiplegia, paraplegia or quadraplegia. [...] or incontinence,, stones or chronic kidney disease AUTOMATION DESIGN ENGINEER: Negative for abnormal vaginal bleeding, abnormal vaginal [...] and EKG in Summarization Report in care [facility] 08/31/24 CMP 08/31/24 Lab Value Units [...] in care everywhere [facility]) [facility] Test Date: 2024-08-30 Pat Name: PRAVEENA DACOSTA Department: Room: - Gender: Female Photographic Process Worker: : 1965 Requested By: RAKESH VERNON Order Number: [id number] Reading MD: RAKESH VERNON Measurements Intervals [place] Rate: 96 P: 65 [place]: 174 QRS: [...] 09/16/2024 TIME: 7:52 AM documented in this encounterCommunity Memorial Hospital03-03-2025 Telephone encounter Note * Telephone Encounter - Marilou Roger - 09/15/2024 2:16 PM EST Spoke with pt scheduled for surgery. [facility]03-03-2025 Miscellaneous Notes* Telephone Encounter - Marilou Roger - 09/15/2024 2:16 PM EST Spoke with pt scheduled for surgery. * Telephone Encounter - Marilou Roger - 09/15/2024 1:17 PM EST Images from the original note were not included. documented in this encounterCommunity Memorial Hospital03-03-2025 Telephone encounter Note * Telephone Encounter - Marilou Roger - 09/15/2024 1:17 PM EST Images from the original note were not included. [facility]02-28-2025 History and physical note* Jono Gonzalez [...] was discussed with the patient or authorized associate financial representative. The patient or authorized associate financial representative has agreed to proceed with the [...] MD cc: Referring provider Elgin Pelayo MD [facility]02-28-2025 History and physical note* Jono Gonzalez [...] was discussed with the patient or authorized associate financial representative. The patient or authorized associate financial representative has agreed to proceed with the [...] provider Elgin Pelayo MD documented in this encounterCommunity Memorial Hospital02-27-2025 Telephone encounter Note * Telephone Encounter - Shweta Hus RN - 09/11/2024 3:55 PM EST Called referring providers office and spoke with staff to please send a copy of US or CT that denotes gallstones as no imaging available. Office fax number given [facility] Work Phone: [phone]) 944-769102-27-2025 Miscellaneous Notes* Telephone Encounter - Shweta Hsu [...] but nothing showing yet. documented in this encounterCommunity Memorial Hospital02-27-2025 Telephone encounter Note * Telephone Encounter [...] done an update but nothing showing yet. [facility]02-04-2025 Telephone encounter Note* Telephone Encounter - Mattie Link MA - 08/19/2024 8:51 AM EST Image has been imported into [employer] and is available to view. [facility]02-04-2025 Miscellaneous Notes* Telephone Encounter - Mattie Link MA - 08/19/2024 8:51 AM EST Image has been imported into [employer] and is available to view. * Telephone Encounter - Mattie Link MA - 08/14/2024 11:49 AM EST Faxed image request to [facility] Confirmation received * Telephone Encounter - Mattie Link MA - 08/14/2024 10:59 AM EST Images from the original note were not included. Elgin Pelayo MD P Ln Pulm Nurse Could we try to obtain images of CT chest 02/13/2024 from [facility] in [facility]? Thanks documented in this encounterCommunity Memorial Hospital01-30-2025 Telephone encounter Note * Telephone Encounter - Mattie Link MA - 08/14/2024 11:49 AM EST Faxed image request to [facility] Confirmation received [facility]01-30-2025 Telephone encounter Note* Telephone Encounter - Mattie Link MA - 08/14/2024 10:59 AM EST Images from the original note were not included. Elgin Pelayo MD P Pulm Nurse Could we try to obtain images of CT chest 02/13/2024 from [facility] in [facility]? Thanks [facility]01-28-2025 Instructions* Patient Instructions* Elgin Pelayo MD [...] office or send me a message through [employer] if you have any questions. Sincerely, Elgin Pelayo MD documented in this encounterCommunity Memorial Hospital01-28-2025 History and physical note * Elgin Pelayo MD - 08/12/2024 1:19 PM EST . [facility] Pulmonology Clinic Initial Visit Note Ms. Dacosta is a 59 year old female who presents to the [facility]. Consultation requested by Rakesh Vernon MD for [...] getting sick again Evaluated for immunodeficiency by Gas Plumbing Inspector at [facility]. On 06/09/2024. Had PFTs. FENO 12ppb. FEV1 [...] personally reviewed by me Data Reviewed from [facility] (in addition to that noted in HPI, and Past histories above): (Data from patient's OSH mychart shown on phone) CBC: last eos 100 (05/2024) IgE: 45 (wnl) PFT: 08/01/2024 Ratio 75% (normal) FEV1 120%, FVC 125% Reported positive bronchodilator response based on FEF 25-75. RV 129% (high) TLC 133% (high) DLCOc 10 3% (normal) CT Chest: 02/13/2024 (OSH, images unavailable) - [facility] in [facility] Lung: Scattered linear densities and calcifications, chronic scarring is favored. Mild dependent atelectasis. No focal parenchymal infiltrates or significant pulmonary nodules. Pleura: No mass, effusion, pneumothorax Lizeth: Small calcified right hilar lymph nodes. Assessment and Plan: Ms. Dacosta is a 59 year old female who presents to the [facility] for evaluation of bronchitis. #Recurrent bronchitis #Asthma [...] oral steroids, ultimately deferred -Should keep her software applications engineer appointment for follow-up testing -I will attempt to obtain images of her outside hospital CT -Follow-up in 3 months with spirometry and nitric oxide before hand Elgin Pelayo MD Pulmonary and Critical Care Staff [facility] Level 4 [facility]01-28-2025 History and physical note* Elgin Pelayo MD - 08/12/2024 1:19 PM EST . [facility] Pul[facility]ology [facility] Initial Visit Note Ms. Dacosta is a 59 year old female who presents to the [facility]. Consultation requested by Rakesh Vernon MD for [...] getting sick again Evaluated for immunodeficiency by Gas Plumbing Inspector at [facility]. On 06/09/2024. Had PFTs. FENO 12ppb. FEV1 [...] tobacco: Never Never smoker. Worked at a [employer] facility for 27 years. Works in the [...] personally reviewed by me Data Reviewed from [facility] (in addition to that noted in HPI, and Past histories above): (Data from patient's OSH mychart shown on phone) CBC: last eos 100 (05/2024) IgE: 45 (wnl) PFT: 08/01/2024 Ratio 75% (normal) FEV1 120%, FVC 125% Reported positive bronchodilator response based on FEF 25-75. RV 129% (high) TLC 133% (high) DLCOc 10 3% (normal) CT Chest: 02/13/2024 (OSH, images unavailable) - [facility] in [facility] Lung: Scattered linear densities and calcifications, chronic scarring is favored. Mild dependent atelectasis. No focal parenchymal infiltrates or significant pulmonary nodules. Pleura: No mass, effusion, pneumothorax Lizeth: Small calcified right hilar lymph nodes. Assessment and Plan: Ms. Dacosta is a 59 year old female who presents to the [facility] for evaluation of bronchitis. #Recurrent bronchitis #Asthma [...] oral steroids, ultimately deferred -Should keep her software applications engineer appointment for follow-up testing -I will attempt to obtain images of her outside hospital CT -Follow-up in 3 months with spirometry and nitric oxide before hand Sumir R Daniela, MD Pulmonary and Critical Care Staff [facility] Level 4 documented in this encounterCommunity Memorial Hospital12-18-2024 Telephone encounter Note * Telephone Encounter - Dave Francis DO - 07/02/2024 12:42 PM EST Needs refill of modafinil called into the [id number] Miscellaneous Notes* Telephone Encounter - Dave Francis DO - 07/02/2024 12:42 PM EST Needs refill of modafinil called into the sleep clinic documented in this encounterFulton State [id number] History of Present illness Narrative* Breann Briscoe [...] antibiotics. 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 She has occasional wheeze. She has albuterol [...] Follow-up in 3 weeks. documented in this encounterFulton State [id number] Miscellaneous Notes* Telephone Encounter - DEIDRA Muller - 05/15/2024 2:11 PM EDT I called Praveena and left a message to call me to schedule an appointment and a surgery with Dr. Lundberg. I left my phone number and extension on her voicemail. Dr. Lundberg saw the patient at [facility] on 05/11/24 and would like to [...] would like to do. [facility] Telephone encounter Note* Telephone Encounter - DEIDRA Muller - 05/15/2024 2:11 PM EDT I called Praveena and left a message to call me to schedule an appointment and a surgery with Dr. Lundberg. I left my phone number and extension on her voicemail. Dr. Lundberg saw the patient at [facility] on 05/11/24 and would like to do a colonoscopy in the next month. [facility] Telephone encounter Note* Telephone Encounter - DEIDRA [...] know what she would like to do. [facility] [employer] [id number] History of Present illness Narrative* Dave Francis, [...] was counseled on the risks of stroke, ND, and sudden with JANIS, along with the [...] to clinic: 3 months documented in this encounterFulton State [id number] Hospital Discharge instructions* Discharge Instructions* Neelima Peralta [...] for pain. [facility] Work Phone: [phone] 143-825406-01-2023 Evaluation note* Encounter Date Diagnosis Assessment Notes [...] resolved. Patient verbalized understanding of treatment plan [employer] Other Evaluation note* Diagnosis Fall, initial encounter- Primary Closed head injury, initial encounter documented in this encounter [facility] Work Phone: Evaluation note* Diagnosis Hypersomnia- Primary Hypersomnia, unspecified JANIS (obstructive sleep apnea) Obstructive sleep apnea (adult) (pediatric) Snoring Other dyspnea and respiratory abnormality Memory loss documented in this encounter [facility] HealthcareEvaluation note* Diagnosis Wheeze- Primary Wheezing Chronic rhinitis Recurrent sinus infections Unspecified sinusitis (chronic) documented in this encounter [facility] HealthcareEvaluation note* Diagnosis Hypersomnia Hypersomnia, unspecified documented in this encounter [facility] HealthcareEvaluation note* Diagnosis Severe persistent asthma without complication- Primary Shortness of breath documented [facility] this encounter [facility]* Diagnosis Calculus of gallbladder without cholecystitis without obstruction- Primary Calculus of gallbladder without mention of cholecystitis or obstruction documented in this encounter [facility]* Diagnosis Pre-op [...] Had COVID infection 08/31/24, was treated at [facility]. Today she is asymptomatic, Lungs CTA, breathing [...] lifestyle modifications encouraged [facility]* Diagnosis Calculus of [...] cholecystitis or obstruction documented in this encounter [facility]* Diagnosis Pre-op [...] obstruction documented in this encounter [facility] note* Diagnosis Pre-op examination- Primary Preoperative examination, unspecified Uncomplicated asthma, unspecified asthma severity, unspecified whether persistent (HCC) Pure hypercholesterolemia, unspecified Hypertension, unspecified type Sleep apnea, unspecified type Biliary calculus of other site without obstruction Hypothyroidism, unspecified type Post-operative state- Primary Other postprocedural status documented in this encounter [facility] note* Diagnosis Onset Date Resolution Status Admit Date Daytime hypersomnolence acuteAugust 2024 11:17amOSA (obstructive sleep apnea)acuteAugust 2024 11:17amSnoringacuteAugust 2024 11:17am [facility] Work Phone: History general Narrative - Reported* Type Description Date Medical History high blood pressure Medical Historythyroid diseaseSurgical HistoryC sectionSurgical Historylobectomy Surgical Historywrist surgerySurgical Historybowel surgeryHospitalization Historysee above [employer] Other InstructionsNot on filedocumented in this encounter [employer] SystemInstructionsNot on filedocumented in this encounter [facility] SystemReason for referral (narrative)* Outpatient Procedure (Routine) - Pending ReviewSpecialtyDiagnoses / ProceduresReferred By Contact Referred To ContactRESPIRATORY INSTITUTE Diagnoses Severe persistent asthma without complication Procedures SPIROMETRY WITH DILATOR IF OBSTRUCTED BRNCDILAT RSPSE SPMTRY PRE&[place] [address] [place] [address] [address] [place] [address] Referral IDStatusReasonStcurtiss DateExpiration DateVisits RequestedVisits [id number] Review Auto-Generated Referral * Outpatient Procedure (Routine) - Pending ReviewSpecialtyDiagnoses / Procedures Referred By ContactReferred To ContactUNM SANDOVAL [facility]ENTERIRAT[facility] INSTITUTE Diagnoses Severe persistent asthma without complication Procedures NITRIC OXIDE, EXHALED NITRIC O[place] [address] [place] [address] [address] [place] [address] Referral IDStaTameraandrei DateExpiration DateVisits RequestedVisits [id number] Review Auto-Generated Referral [facility] HospitalReason for referral (narrative)No reason for referral information availableRiverside Methodist Hospital Work Phone: Reason for visit Narrative* Auth/Cert (Routine) SpecialtyDiagnoses / ProceduresReferred By ContactReferred To ContactNORT[facility] AKIKO Diagnoses Calculus of gallbladder without cholecystitis without obstruction Calculus of gallbladder without cholecystitis without obstruction [K80.20] Procedures LAPS SURG CHOLECYSTECTOMY W/CHOLANGIOGRAPHY LAPAROSCOPIC CHOLECYSTECTOMY WITH GRAMS Ambulatory Surgery [address] [place] [address] Phone: tel: Referral IDStatusMichaelaasonDavy DateExpiration DateVisits RequestedVisits [id number] [facility] Summary Purpose Family History No Family History [...] and content) DATE CREATED AUTHOR 08/14/2022 [facility] DATE CREATED AUTHOR AUTHOR'S ORGANIZ ATION 08/31/2023 [facility] DATE CREATED AUTHOR AUTHOR'S ORGANIZ ATION 04/08/2024 [facility] DATE CREATED AUTHOR AUTHOR'S ORGANIZ ATION 06/12/2024 [facility] EPIC DATE CREATED AUTHOR AUTHOR'S ORGANIZ ATION 06/28/2024 [facility] DATE CREATED AUTHOR AUTHOR'S ORGANIZ ATION 09/09/2024 [facility] DATE CREATED AUTHOR AUTHOR'S ORGANIZ ATION 10/19/2024 [facility] DATE CREATED AUTHOR AUTHOR'S ORGANIZ ATION 05/26/2025 [facility] REASON FOR VISIT (unrecogniz ed section [...] there is some lung scaring.Seen Allergy in [facility] HospitalReasonCommentsImage requestReasonCommentsNew Patient CholelithiasisReasonCommentsPre-Op VisitReasonCommentsSchedule SurgeryReason CommentsPost Op [...] Preprocedure * 0744 (Given - Provider: Josie Ríos, RONALD) ciprofloxacin iv piggyback 400 mg in D5W 200 mL (CIPRO) (COMPLETED) 400 mg, INTRAVENOUS, at 200 mL/hr, Administer over 60 Minutes, ONCE, 1 dose, On Sun09/30/24 at 0900, Antimicrobial indication: Prophylaxis: Purpose of antimicrobial is to prevent infection., Pharmacist may modify dose per [facility] dose optimization consult agreement: Yes, [...] DateEnd Date Rakesh Vernon MD [address] [place] [facility] [place] [address] PCP - General09/06/09Team MemberRelationshipSpecialtyStart DateEnd Date Rakesh Vernon MD [address] [place] [address] PCP - [facility]05/24/23Team MemberRelationshipSpecialtyStart DateEnd Date Rakesh Vernon MD [address] [place] [address] PCP - Generalmi Xbwhwhmm83/9/23Team MemberRelationshipSpecialtyStart DateEnd Date Rakesh Vernon MD [address] [place] [address] PCP - Generalmi Fthosdsu70/9/23Team MemberRelationshipSpecialtyStart DateEnd Date Rakesh Vernon MD [address] [place] [address] PCP - GeneralFamily Honwhpyj90/9/23Team MemberRelationshipSpecialtyStart DateEnd Date Rakesh Vernon MD [address] [place] [address] PCP - GeneralFamily Xithojmr30/9/23Team MemberRelationshipSpecialtyStart DateEnd Date Rakesh Vernon MD [address] [place] [address] PCP - GeneralFamily Udtrmzzx34/9/23Team MemberRelationshipSpecialtyStart DateEnd Date Rakesh Vernon MD [address] [place] [facility] [place] [address] ReferringFamily Medicine08/06/24Team MemberRelationshipSpecialtyStart DateEnd Date Rakesh Vernon MD [address] [place] [facility] [place] [address] ReferringFamily Medicine08/06/24Team MemberRelationshipSpecialtyStart DateEnd Date Rakesh Vernon MD [address] [facility] [place] [address] PCP - GeneralFamily Lwaeyhrq26/28/24Team MemberRelationshipSpecialtyStart Date End Date Rakesh Vernon MD [address] [place] [facility] [place] [address] ReferringFamily Medicine08/06/24Team MemberRelationshipSpecialtyStart DateEnd Date Rakesh Vernon MD [address] [place] [facility] [place] [address] ReferringFamily Medicine08/06/24Team MemberRelationshipSpecialtyStart DateEnd Date Rakesh Vernon MD [address] [place] [facility] [place] [address] ReferringFamily Medicine08/06/24Team MemberRelationshipSpecialtyStart DateEnd Date Rakesh Vernon MD [address] [place] [facility] [place] [address] ReferringFamily Medicine08/06/24Team MemberRelationshipSpecialtyStart DateEnd Date Rakesh Vernon MD [address] [place] [facility] [place] [address] PCP - Generalmily Medicine09/19/24 Rakesh Vernon MD [address] [place] [facility] [place] [address] Referringmi Medicine08/06/24Team MemberRelationshipSpecialtyStart DateEnd Date Rakesh Vernon MD [address] [place] [facility] [place] [address] PCP - Generalmily Medicine09/19/24 Rakesh Vernon MD [address] [place] [facility] [place] [address] ReferringFami Medicine08/06/24Team MemberRelationshipSpecialtyStart DateEnd Date Rakesh Vernon MD [address] [place] [facility] [place] [address] PCP - Generalmily Medicine09/19/24 Rakesh Vernon MD [address] [place] [facility] [place] [address] ReferringFamily Medicine08/06/24Team MemberRelationshipSpecialtyStart DateEnd Date Rakesh Vernon MD [address] [facility] [place] [address] PCP - GeneralFamily Fduqugzc42/28/24 Team Status: Active Member Role Status Dates Rakesh Vernon MD Primary Care Provider Active Team Status: Inactive Member Role Status Dates Rakesh Vernon MD Primary Care Provider Active Start: February 18, 2025 End: February 18natashaCharles Velasquez ProviderActiveStart: February 18, 2025 End: February 18, 2025Team MemberRelationshipSpecialtyStart DateEnd Date Rakesh Vernon MD PCP - GeneralFamily Kftdcjhr66/9/23 Source Comments (unrecognize d section and content) In the event this informatio n is protected by the Federal Confidentiality of Alcohol and Drug Abuse Patient Records regulations: The Federal rules restrict any use of the information to criminally investigate or prosecute any alcohol or drug abuse patient.[facility] HospitalIn the event this information is protected by the Federal Confidentiality of Alcohol and Drug Abuse Patient Records regulations: The Federal rules restrict any use of the information to criminally investigate or prosecute any alcohol or drug abuse patient.[facility] HospitalIn the event this information is protected by the Federal Confidentiality of Alcohol and Drug Abuse Patient Records regulations: The Federal rules restrict any use of the information to criminally investigate or prosecute any alcohol or drug abuse patient.[facility] HospitalIn the event this information is protected by the Federal Confidentiality of Alcohol and Drug Abuse Patient Records regulations: The Federal rules restrict any use of the information to criminally investigate or prosecute any alcohol or drug abuse patient.[facility] HospitalIn the event this information is protected by the Federal Confidentiality of Alcohol and Drug Abuse Patient Records regulations: The Federal rules restrict any use of the information to criminally investigate or prosecute any alcohol or drug abuse patient.[facility] HospitalIn the event this information is protected by the Federal Confidentiality of Alcohol and Drug Abuse Patient Records regulations: The Federal rules restrict any use of the information to criminally investigate or prosecute any alcohol or drug abuse patient.[facility] HospitalIn the event this information is protected by the Federal Confidentiality of Alcohol and Drug Abuse Patient Records regulations: The Federal rules restrict any use of the information to criminally investigate or prosecute any alcohol or drug abuse patient.[facility] HospitalIn the event this information is protected by the Federal Confidentiality of Alcohol and Drug Abuse Patient Records regulations: The Federal rules restrict any use of the information to criminally investigate or prosecute any alcohol or drug abuse patient.[facility] HospitalIn the event this information is protected by the Federal Confidentiality of Alcohol and Drug Abuse Patient Records regulations: The Federal rules restrict any use of the information to criminally investigate or prosecute any alcohol or drug abuse patient.[facility] HospitalIn the event this information is protected by the Federal Confidentiality of Alcohol and Drug Abuse Patient Records regulations: The Federal rules restrict any use of the information to criminally investigate or prosecute any alcohol or drug abuse patient.[facility] Goals (unrecognized section and content) Goals [...] BE BASED ON THE PRIMARY CLINICAL RECORDS. [facility] SystemsFreshfetch [facility]. provides no warranty or guarantee of the accuracy or completeness of information in this document.
--- NOTE | 2025-06-04 15:38 | CT_ITS ---
The [address] [address] Patient Name: PRAVEENA DACOSTA MRN: [id number] date: 1965 Sex: F Assigned Patient Location: ER Current Patient Location: ER Accession/Order Number: [id number] Exam Date: 06/04/2025 15:52 Report Date: 06/04/2025 17:25 At the request of: HANG TREVIZO MD Procedure: CT abdomen pelvis w con CT Abdomen and Pelvis withcontrast TECHNIQUE: Axial imaging with 2-D reconstruction. The CT exam was performed using one or more the following dose reduction techniques: Automated exposure control, adjustment of the MA and/or Kv according to patient size, or use of the iterative reconstruction technique. COMPARISON: MRI the abdomen 05/21/2025 History: Epigastric pain. LIMITATIONS: None LOWER THORAX mild atelectasis LIVER: Unremarkable GALLBLADDER: Cholecystectomy clips identified. BILE DUCTS: Mild prominence of the common bile duct likely secondary to cholecystectomy no visible calcified common bile duct stone. SPLEEN: Unremarkable PANCREAS: Unremarkable ADRENAL GLANDS: Unremarkable KIDNEYS:Unremarkable AORTA: No abdominal aortic aneurysm identified. Mild atherosclerosis RETROPERITONEUM: No significant retroperitoneal abnormalities identified. MESENTERY:Unremarkable STOMACH:Unremarkable SMALL BOWEL: The small bowel loops are nondistended. APPENDIX: The appendix is normal. COLON: Moderate stool in the ascending colon. URINARY BLADDER: Urinary bladder is unremarkable. REPRODUCTIVE SYSTEM: Reproductive structures are unremarkable. PNEUMOPERITONEUM: None PERITONEAL FLUID:None BONY STRUCTURES: Unremarkable ABDOMINAL WALL: Unremarkable CT/CT abdomen pelvis w con IMPRESSION: No acute findings. Mild prominence of common bile duct likely secondary to cholecystectomy. No focal inflammatory changes. No pneumoperitoneum. The proximal constipation. Impression dictated by: Brandan Dubois M.D. 06/04/2025 5:25 PM Dictation Location: [employer] Electronically authenticated by: [id number] Y Date: 06/04/2025 17:25
== END 2025-06-04 18:18 | disposition home or self-care (01) ==
PROVIDERS: Emergency Provider Emergency Medicine; PCP Family Medicine
DX: R10.13 Epigastric pain (principal); R07.9 Chest pain, unspecified; K59.00 Constipation, unspecified; Z98.890 Other specified postprocedural states; Z90.49 Acquired absence of other specified parts of digestive tract
CPT/HCPCS: 36415; 71045; 74177; 80048; 80076; 82150; 83690; 84484; 85025; 93005; 96374; 96375; 96376; 99285; J2270; J2405; Q9967